=== PATIENT | female | born 1980 | race Caucasian/White ===

== ENCOUNTER 2020-07-17 02:31 | Outpatient (CLI) | payer OTHER, SELFPAY ==
[2020-07-18 13:16] LABS: COVID-19 RT-PCR UVMMC Result Negative (Negative)
== END 2020-07-17 02:32 | disposition home or self-care (01) ==
LOC: LBO 02:31
DX: Z20.822 Contact with and (suspected) exposure to COVID-19 (principal); Z01.818 Encounter for other preprocedural examination
CPT/HCPCS: U0003

== ENCOUNTER 2021-03-18 03:53 | Outpatient (CLI) | payer OTHER, SELFPAY ==
[2021-03-18 13:00] LABS: Hemoglobin A1C 8.7 % (<5.7)
[2021-03-18 13:10] LABS: ALT 19 U/L (14-59); AST 15 U/L (15-37); Albumin 3.9 g/dL (3.4-5.0); Alkaline Phosphatase 76 U/L (46-116); Anion Gap 9.6 mmol/L (3-11); BUN 5 mg/dL (7-18); Bilirubin, Total 0.4 mg/dL (0.2-1.0); CO2 28.4 mmol/L (21.0-32.0); CREATININE 0.8 mg/dL (0.55-1.02); Calcium 8.8 mg/dL (8.5-10.1); Calculated LDL 136 mg/dL (<100); Chloride 105 mmol/L (98-107); Cholesterol 204 mg/dL (<200); Glucose 74 mg/dL (74-106); HDL Cholesterol 59 mg/dL (40-60); Potassium 4.3 mmol/L (3.5-5.1); Sodium 143 mmol/L (136-145); TSH 1.45 uIU/mL (0.36-3.74); Total Protein 6.9 g/dL (6.4-8.2); Triglyceride 49 mg/dL (<150)
[2021-03-18 13:35] LABS: COMMENT (LAB VIEW ONLY) 178.95 mg/dL; Microalb ug/mg Crea 5.8 ug/mg Cr
== END 2021-03-18 03:54 | disposition home or self-care (01) ==
DX: E10.649 Type 1 diabetes mellitus with hypoglycemia without coma (principal)
CPT/HCPCS: 36415; 80053; 80061; 82043; 82570; 83036; 84443

== ENCOUNTER 2021-08-18 12:07 | Outpatient (REF) | payer OTHER, SELFPAY ==
--- NOTE | 2021-08-18 10:15 | PAPFT_PTH ---
PATIENT: Carolyn Portillo LOC: [facility] U#:[id number] AGE/SX: 40/F ROOM: RE08/18/[address]: Tori Monte MD : [id number] BED: DIS: 08/18/2021 SPEC #: [id number] RECD: 08/18/21 12:45 STATUS: GEOFFREY REQ #: [id number] PATRICIA: 08/18/21 10:[address]: Tori Monte DEPT: [facility] Cytology RECD BY: Sonali Santiago ENTERED: 08/18/21 12:45 SP TYPE: PAPFT OTHR DR: Ja Murphy Tissues: 1 - CX/ENDOCX FOR PAP SMEARS Procedures: PAP THIN PREP/UVM Screening HPV DNA PROBE Comments: [id number] (HPV 16 & 18/45)
== END 2021-08-18 12:08 | disposition home or self-care (01) ==
LOC: LBN 12:07
PROVIDERS: PCP Family Medicine; Visit Provider Obstetrics & Gynecology
DX: Z12.4 Encounter for screening for malignant neoplasm of cervix (principal); Z11.51 Encounter for screening for human papillomavirus (HPV)
CPT/HCPCS: 88142; 87624

== ENCOUNTER 2021-10-13 00:28 | Outpatient (CLI) | payer OTHER, SELFPAY ==
--- NOTE | 2021-10-13 12:22 | DI.MAMMO_ITS ---
Exam(s) MAMMO SCREENING EXAM: MAMMO SCREENING CLINICAL HISTORY: screening. TECHNIQUE: Bilateral full field digital CC and MLO mammographic images were obtained with 3D tomosyn thesis and utilizing computer aided detection (CAD). COMPARISON: None. This is a baseline mammogram on this 40-year-old patient FINDINGS: Fibroglandular tissue pattern is moderately dense. There are no CAD designations. There are no new spiculated masses nor malignant appearing microcalcification groups. There is no significant architectural distortion nor skin thickening-retraction. IMPRESSION: No radiographic evidence of malignancy. BI-RADS Category 1 - Negative Breast Density - Category C - Heterogeneously dense Breast density Category C or D implies that the patient has dense breast tissue. Dense breast tissue can make it harder to find cancer on a mammogram. Dense breast tissue is also associated with an incr eased risk of breast cancer. This information about the result of the mammogram report was provided to the patient to raise their awareness. Use this report when you speak with the patient about their risks for breast cancer, which includes their family history. At that time, you may recommend additional screening tests (Ultrasoun d or MRI) as these tests may add significant information. A negative radiographic report should not delay biopsy if a dominant or clinically suspicious mass is present. Up to ten percent of cancers are not identified on mammography. A negative report may reinforce clinical impression. Adenosis and dense breasts may obscure an underlying neoplasm. False positive reports average 6 to 10%. Patient will receive a letter notifying them of these results.
== END 2021-10-13 00:48 ==
PROVIDERS: Visit Provider Obstetrics & Gynecology
DX: Z12.31 Encounter for screening mammogram for malignant neoplasm of breast (principal)
CPT/HCPCS: 77063; 77067

== ENCOUNTER 2022-01-24 18:12 | Emergency (ER) | payer OTHER, SELFPAY ==
--- NOTE | 2022-01-24 18:15 | DI.RAD_ITS ---
Exam(s) XR CHEST 2V PA LATERAL EXAM: XR CHEST 2V PA LATERAL CLINICAL HISTORY: Right Falnk/Rib pain TECHNIQUE: 2D digital imaging was performed of the chest. Two images were obtained. PA and lateral views were obtained. COMPARISON: CR CHEST 2 VIEWS PA,LAT from 03/21/2015 FINDINGS: MEDIASTINUM: Normal. HEART: Normal. PULMONARY VASCULATURE: Normal. LUNGS: Clear. PLEURAL SPACE: No pleural effusion or pneumothorax. BONE:Within normal limits for the patient's age. OTHER FINDINGS:Normal. IMPRESSION: No acute pulmonary findings. DATA REPOSITORY: RADIATION DOSE DELIVERED:
[2022-01-24 18:16] VITALS: PULSE 80; RESP 18; TEMP 36.7; O2SAT 98
--- NOTE | 2022-01-24 18:29 | ED.GENADUL_ITS ---
Discharge Plan Disposition Patient Disposition: HOME Condition: Stable Discharge Details Clinical Impression: Flank pain Primary Care Provider: Carmen Hernandez ED Provider: Carmen Duque Home Meds and New Rx's Prescriptions: Continued atorvastatin 10 mg tablet 5 mg PO DAILY albuterol sulfate [ProAir HFA] 90 mcg/actuation HFA aerosol inhaler 2 puff inhalation Q6H PRN bupropion HCl 150 mg tablet sustained-release 12 hr 150 mg PO BID insulin glargine [Lantus U-100 Insulin] 100 UNITS/ML solution 30 units SQ DAILY insulin aspart U-100 [Novolog U-100 Insulin aspart] 100 UNITS/ML solution 1 - 30 units SQ AC Discharge Instructions Instructions: Flank Pain (ED) Additional Instructions: At this time the work-up is largely unremarkable. CT shows no evidence for gallbladder problem, small bowel obstruction, kidney stone. No evidence of urinary tract infection. Your magnesium was a little bit low. No evidence to suggest what may be causing your pain at this time. Follow up with primary care provider in 3-5 days. Return to ED sooner if any worsening or concerns. Increase oral fluids. Referrals: Carmen Hernandez, S[employer]IOR PUBLICATIONS SPECIALIST [Primary Care Provider] - 5 days Medical Decision Making 41 year old female Presents with Flank Pain Which began Tuesday am, Reports Nausea, diarrhea but No Vomiting. Work-up ordered including CBC, CMP, lipase, urinalysis. Chest x-ray will consider CT abdomen pelvis. CBC shows white blood cell count 11.80, neutrophils 7.03, CMP shows glucose 279, magnesium 1.6, negative leukocytes negative nitrites urinalysis shows greater than thousand glucose CT shows no explanation for patient's pain. There is a small umbilical hernia. Discussed CT and lab results with patient who verbalized understanding. Patient given ibuprofen and lidocaine patch. Instructed to follow-up with PCP she verbalized understanding. She does have an appointment next week. All her questions were answered to the best my ability. This text was generated using [employer] system, please disregard any oddities of phrase or misspellings. Imaging Data Radiologic Study: Imaging: CT Scan Radiologist's impression: CR XR CHEST 2V PA LATERAL 01/24/2022 7:33 PM FINDINGS: Liver: Normal. No mass. Gallbladder and bile ducts: The gallbladder is fairly significantly contracted. Pancreas: Normal. No ductal dilation. Spleen: Normal. No splenomegaly. Adrenal glands: Normal. No mass. Kidneys and ureters: Normal. No hydronephrosis. Stomach and bowel: Unremarkable. No obstruction. No mucosal thickening. Appendix: The appendix is well seen, within normal limits. Intraperitoneal space: Unremarkable. No free air. No significant fluid collection. Vasculature: Mild atherosclerotic change present in the vasculature. Lymph nodes: Unremarkable. No enlarged lymph nodes. Urinary bladder: Unremarkable as visualized. Reproductive: Status post hysterectomy. Bones/joints: Unremarkable. No acute fracture. Soft tissues: There is a small, fat containing periumbilical hernia. Umbilical piercing noted. IMPRESSION: No acute abnormality seen to account for symptoms. Thank you for allowing us to participate in the care of your patient. Dictated and Authenticated by: Kaley Lentz MD Lab Data Lab results reviewed: Yes I reviewed the patient's lab results. Labs: Laboratory Tests Range/Units 01/24/22 01/24/22 01/24/22 19:14 19:20 19:20 WBC (4.4-10.8) 10^3/uL 11.80 H RBC (3.93-5.22) 10^6/uL 4.26 Hgb (11.2-15.7) g/dL 13.1 Hct (36.0-46.0) % 38.2 MCV (80-95) fL 90 MCH (27.0-33.0) pg 30.8 MCHC (32.0-36.0) % 34.3 RDW (11.7-14.6) % 13.7 Plt Count (130-400) 10^3/uL 232 MPV (8.0-11.0) fL 10.1 Immature Gran % 0.3 Neutrophils % 59.6 Lymphocytes % 30.0 Monocytes % 7.5 Eosinophils % 2.3 Basophils % 0.3 Nucleated RBC % (0.0-0.3) % 0.0 Absolute Neutrophils (1.2-6.7) 10^3/uL 7.03 H Absolute Lymphocytes (1.2-3.4) 10^3/uL 3.54 H Absolute Monocytes (0.1-0.8) 10^3/uL 0.89 H Absolute Eosinophils (0.0-0.7) 10^3/uL 0.27 Absolute Basophils (0.0-0.2) 10^3/uL 0.04 Sodium (136-145) mmol/L 138 Potassium (3.5-5.1) mmol/L 3.7 Chloride (98-107) mmol/L 101 Carbon Dioxide (21.0-32.0) mmol/L 27.1 Anion Gap (3-11) mmol/L 9.9 BUN (7-18) mg/dL 11 Creatinine (0.55-1.02) mg/dL 1.0 Estimated GFR/1.73 m2 (mL/min/1.73m2) >= 60.00 Glucose (74-106) mg/dL 279 H Calcium (8.5-10.1) mg/dL 9.1 Magnesium (1.8-2.4) mg/dL 1.6 L Total Bilirubin (0.2-1.0) mg/dL 0.3 AST (15-37) U/L 13 L ALT (14-59) U/L 17 Alkaline Phosphatase (46-116) U/L 78 Total Protein (6.4-8.2) g/dL 7.1 Albumin (3.4-5.0) g/dL 3.7 Lipase (73-393) U/L 82 Urine Color (Yellow) Yellow Urine Clarity (Clear) Clear Urine pH (5-8) 7.0 Ur Specific [place] (1.005-1.025) 1.020 Urine Protein (Negative) mg/dL Negative Urine Ketones (Negative) mg/dL 15 H Urine Blood (Negative) Negative Urine Nitrite (Negative) Negative Urine Bilirubin (Negative) Negative Urine Urobilinogen (Up TO 0.2) EU/dL 1.0 H Ur Leukocyte Esterase (Negative) Negative Urine Glucose (Negative) mg/dL >=1000 H HPI General Mode of arrival: ambulatory . Date/Time Provider Initiated Documentation: 01/24/22 18:23 . Limitations to Documentation: no limitations . Information obtained by: patient, RN notes reviewed and old records reviewed . HPI Narrative: 41 year old female Presents with Flank Pain Which began Neo am, Reports Nausea, diarrhea but No Vomiting. Denies fever, chills, PShx includes hysterectomy. Past medical history includes insulin-dependent diabetes, depression, hyperlipidemia. Denies injury. Patient is a smoker. Denies any dysuria or problems urinating. Denies any diarrhea. No chest pain shortness of breath. No other associated symptoms. Related Data Home Medications Medication Instructions Recorded Confirmed insulin aspart U-100 100 unit/mL 1 - 30 units SQ AC 03/21/15 01/24/22 subcutaneous solution (Novolog U-100 Insulin aspart) insulin glargine 100 unit/mL 30 units SQ DAILY 03/21/15 01/24/22 subcutaneous solution (Lantus U-100 Insulin) atorvastatin 10 mg tablet 5 mg PO DAILY 07/28/21 01/24/22 albuterol sulfate 90 mcg/actuation 2 puff inhalation Q6H PRN 08/07/21 01/24/22 aerosol inhaler (ProAir HFA) bupropion HCl 150 mg tablet,12 hr 150 mg PO BID 08/07/21 08/18/21 sustained-release Allergies Allergy/AdvReac Type Severity Reaction Status Date / Time insulin detemir Allergy Severe Verified 01/24/22 19:07 [From Levemir U-100 Insulin] General Stated Complaint: Abd Prob KAMILA: 3 Review of Systems All systems reviewed & are unremarkable except as noted in HPI and below Gastrointestinal Gastrointestinal: Reports as per HPI, Reports abdominal pain, Reports diarrhea, Reports nausea and Denies vomiting Genitourinary Genitourinary: Reports flank pain PFSH All Active Problems (Updated 01/24/22 @ 20:51 by Carmen Duque NP) Flank pain (Acute) Depression (Chronic) Abnormal Pap smear of cervix (Acute) Per patient high-grade dysplasia more than once with [facility]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 Had skin reaction to patch, welbutrin didn't work, has the nicotrol inhalers to try. Family history of colon cancer (Acute) Brother age 40, per patient as of 07/2021-colonoscopy at [facility] [place] over 5 years ago with benign polyp Hyperlipidemia (Acute) Type 1 diabetes (Acute) With insulin pump, followed by endocrine at [facility], no diabetic associated complications as of 07/2021 Medical History Abscess of groin Chlamydial cervicitis Condyloma acuminatum External hemorrhoids Hematochezia Low back pain Surgical History H/O bilateral salpingectomy H/O section (~2013) H/O LEEP (~2017) repeated in 2019 H/O wisdom tooth extraction History of biopsy shave biopsy, left inner thigh History of hysterectomy Family History Mother Hypertension Hyperlipidemia Father Alcohol use disorder Depression Substance use disorder Brother Colon cancer Sister No problems noted. Son No problems noted. Son No problems noted. Daughter No problems noted. Daughter Asthma Depression Maternal Grandfather Prostate cancer Maternal Grandmother No problems noted. Social History Smoking/Tobacco Use Status: Current every day Tobacco Type: cigarettes Years smoked: 25 Tobacco: How many years used: 25 Quit status: considering quitting Second Hand Exposure: Yes Smoking risk assessment performed?: Yes Alcohol Intake: current Alcohol Intake frequency: 0-2 drinks per day Alcohol type: other Drug use: Never Substance use type: does not use Counseling given: No Details: Drinks 2 twisted teas a night Caregiver/Support person: No Household members: significant other and children Housing: house Do you need help understanding health information?: Rarely Pets and animals: Yes Pets and animals: dog(s) Sexually active: Yes Do you think of yourself as: bisexual Current gender identity: female What is your relationship status?: How often do you talk on the phone with friends or family?: three or more times per week Do you belong to any clubs or organized social groups?: no Panel score (0-1 are the most socially isolated patients): 1 What type of physical activity do you participate in: walking and aerobic Duration: 30-45 minutes/day Frequency: 3-4 times per week Silvia/Samaritan: No preference Special silvia needs: No Seatbelt use: always Helmet use: Yes Helmet use: always Drive intox or ride w/intox route salesman and driver: No Do you feel safe at home: Yes Do you feel safe in your relationship?: Yes Female Reproductive History Menstrual Menopause type: surgical Date of menopause: 07/21/20 (Hyst for persistent DARIAN 3 / LEEPs 2017 & 2019) History History 6 Para 4 Hx # Term Pregnancies Multiple births Hx # Pregnancies Ectopic pregnancies AB induced 1 Hx Number of Living Children 4 AB spontaneous 1 Past Pregnancies Del. Date GA/Weeks # Preg Succ Route Wgt Sex Labor Lgth Anesth esia Location Prov Complic 12/07/99 No vaginal Female 07/10/02 No vaginal 2891.651 g Female 02/08/05 40 No vaginal 2863.302 g Male 09/07/13 37 No 2664.855 g Male Exam Narrative Exam Narrative: Constitutional: Alert and oriented x3. Appears stated age. Normal body habitus. Head: Normocephalic, no trauma. Eyes: Pupils PERRL, Red reflex noted, EOM's intact. Eyelids symmetrical without lesions, discharge, or swelling. ENT: Bilateral TM's WNL, External ear normal to inspection, no mastoid TTP, swelling, or erythema, Nasal turbinates WNL, no nasal discharge. Normal dentition, Posterior pharynx WNL, no exudate. Chest: RRR, Normal S1, S2, distal pulses intact. Resp: Lungs clear to auscultation bilaterally, no wheezes, rales, or rhonchi. Abdomen: Soft, non-distended, Normoactive bowel sounds all 4 quads. Musculoskeletal: Normal gait, 5/5 strength to all four extremities. Skin: No suspicious rashes or lesions. Capillary refill less than 2 sec. Neurologic: Cranial nerves II-XII intact. Alert and oriented x 3. Motor: No deficits noted. Sensory: Intact bilaterally all 4 extremities. Reflexes: DTR's intact bilaterally.. Hematologic/Lymphatic: No ecchymosis, no lymphadenopathy. Course Vital Signs Vital signs: Vital Signs Temperature 36.7 C 01/24/22 18:16 Pulse 80 01/24/22 18:16 Respiratory Rate 18 01/24/22 18:16 Pulse Oximetry 98 01/24/22 18:16 Temperature 36.7 C 01/24/22 18:16 Temperature Source Temporal Artery Scan 01/24/22 18:16 Pulse 80 01/24/22 18:16 Respiratory Rate 18 01/24/22 18:16 Blood Pressure Position Sitting 01/24/22 18:16 Pulse Oximetry 98 01/24/22 18:16 Pain Level 7 01/24/22 18:16
[2022-01-24 19:19] LABS: Bilirubin Negative (Negative); Blood Negative (Negative); Clarity Clear (Clear); Glucose >=1000 mg/dL (Negative); Ketones 15 mg/dL (Negative); Leukocyte Esterase Negative (Negative); Nitrite Negative (Negative)
[2022-01-24 19:32] LABS: Abs Immature Grans 0.03 10^3/uL (0.0-0.06); Absolute Basophil Count 0.04 10^3/uL (0.0-0.2); Absolute Eosinophil Count 0.27 10^3/uL (0.0-0.7); Absolute Lymphocyte Count 3.54 10^3/uL (1.2-3.4); Absolute Monocyte Count 0.89 10^3/uL (0.1-0.8); Absolute Neutrophil Count 7.03 10^3/uL (1.2-6.7); Basophils % 0.3; Eosinophils % 2.3; HCT 38.2 % (36.0-46.0); HGB 13.1 g/dL (11.2-15.7); Immature Grans % 0.3; MCH 30.8 pg (27.0-33.0); MCHC 34.3 % (32.0-36.0); MCV 90 fL (80-95); MPV 10.1 fL (8.0-11.0); Monocytes % 7.5; Neutrophils % 59.6; Platelet Count 232 10^3/uL (130-400); RBC 4.26 10^6/uL (3.93-5.22); RDW 13.7 % (11.7-14.6); RDW-SD 44.7 fL
[2022-01-24 19:44] LABS: ALT 17 U/L (14-59); AST 13 U/L (15-37); Albumin 3.7 g/dL (3.4-5.0); Alkaline Phosphatase 78 U/L (46-116); Anion Gap 9.9 mmol/L (3-11); BUN 11 mg/dL (7-18); Bilirubin, Total 0.3 mg/dL (0.2-1.0); CO2 27.1 mmol/L (21.0-32.0); Calcium 9.1 mg/dL (8.5-10.1); Chloride 101 mmol/L (98-107); Glucose 279 mg/dL (74-106); Lipase 82 U/L (73-393); Magnesium 1.6 mg/dL (1.8-2.4); Potassium 3.7 mmol/L (3.5-5.1); Sodium 138 mmol/L (136-145); Total Protein 7.1 g/dL (6.4-8.2)
--- NOTE | 2022-01-24 20:05 | DI.VRAD_ITS ---
PROCEDURE INFORMATION: Exam: XR Chest Exam date and time: 01/24/2022 7:33 PM Age: 41 years old Clinical indication: Pain; Right-sided; Additional info: Right rib and flank pain TECHNIQUE: Imaging protocol: Radiologic exam of the chest. Views: 2 views. COMPARISON: CR CHEST 2 VIEWS PA,LAT 03/21/2015 11:22 AM FINDINGS: Lungs: Unremarkable. No consolidation. Pleural spaces: Unremarkable. No pleural effusion. No pneumothorax. Heart/Mediastinum: Unremarkable. No cardiomegaly. Bones/joints: Unremarkable. IMPRESSION: No evidence for acute abnormality in the chest. Dictated and Authenticated by: Kaley Lentz MD. Ordering:MAXIM Morales MD
--- NOTE | 2022-01-24 20:15 | DI.CT_ITS ---
Exam(s) CT ABDOMEN PELVIS WO EXAM: CT ABDOMEN PELVIS WO CLINICAL HISTORY: Right flank pain. TECHNIQUE: Imaging Protocol: Axial computed tomography images with coronal and sagittal reformatted images were created and reviewed. COMPARISON: No exams were available for comparison FINDINGS: ABDOMEN: Lung Bases: Atelectasis is seen in the lung bases. Liver: Normal density. No measurable mass. Gallbladder and biliary tract: No radiodense calculus or biliary ductal dilation. Pancreas: Normal density, no abnormal calcifications or inflammatory process. Spleen: Normal. Kidneys: Normal size, contour and axis.No radiodense stones or obstructive uropathy. No masses seen. Adrenal glands: No mass is seen. Lymph nodes: Within normal limits. Abdominal Aorta: Abdominal portion non-dilated. Mild atherosclerosis is present. PELVIS: Bladder:Symmetric distention, no gross wall thickening. Bowel: No obstruction or bowel wall thickening. Appendix is unremarkable. Peritoneal cavity: No ascites, collection or mesenteric inflammatory response. No free air. Reproductive organs: The uterus is not well visualized. The patient may be status post hysterectomy. Please correlate clinically. Bones: Within normal limits. Soft Tissues: There is a small fat containing umbilical hernia. There is an umbilical piercing noted . IMPRESSION: 1. No acute abdominal or pelvic process. 2. No evidence of nephrolithiasis or hydronephrosis. RADIATION DOSE DELIVERED: 512.74mGy.cm Total DLP DATA REPOSITORY: All CT scans at this facility are submitted to the National Radiology Data Registry (NRDR) Dose Index Registry (DIR) with the [employer] (ACR). RADIATION OPTIMIZATION: All CT scans at this facility use at least one of these dose optimization te chniques: automated exposure control; mA and/or kV adjustment per patient size (includes targeted exa ms where dose is matched to clinical indication); or iterative reconstruction.
--- NOTE | 2022-01-24 20:46 | DI.VRAD_ITS ---
PROCEDURE INFORMATION: Exam: CT Abdomen And Pelvis Without Contrast Exam date and time: 01/24/2022 8:29 PM Age: 41 years old Clinical indication: Abdominal pain; Flank; Right; Prior surgery; Surgery date: 6+ months; Surgery type: Sensor, hysterectomy; Additional info: Right rib and flank pain TECHNIQUE: Imaging protocol: Computed tomography of the abdomen and pelvis without contrast. Radiation optimization: All CT scans at this facility use at least one of these dose optimization techniques: automated exposure control; mA and/or kV adjustment per patient size (includes targeted exams where dose is matched to clinical indication); or iterative reconstruction. COMPARISON: CR XR CHEST 2V PA LATERAL 01/24/2022 7:33 PM FINDINGS: Liver: Normal. No mass. Gallbladder and bile ducts: The gallbladder is fairly significantly contracted. Pancreas: Normal. No ductal dilation. Spleen: Normal. No splenomegaly. Adrenal glands: Normal. No mass. Kidneys and ureters: Normal. No hydronephrosis. Stomach and bowel: Unremarkable. No obstruction. No mucosal thickening. Appendix: The appendix is well seen, within normal limits. Intraperitoneal space: Unremarkable. No free air. No significant fluid collection. Vasculature: Mild atherosclerotic change present in the vasculature. Lymph nodes: Unremarkable. No enlarged lymph nodes. Urinary bladder: Unremarkable as visualized. Reproductive: Status post hysterectomy. Bones/joints: Unremarkable. No acute fracture. Soft tissues: There is a small, fat containing periumbilical hernia. Umbilical piercing noted. IMPRESSION: No acute abnormality seen to account for symptoms. Dictated and Authenticated by: Kaley Lentz MD. Ordering:MAXIM Morales MD
[2022-01-24] MEDS: Magnesium Oxide 400 MG TAB PO (21:05)
[2022-01-24] MEDS: Lidocaine 5% Patch 1 PATCH TP (21:05)
[2022-01-24] MEDS: Ibuprofen 600 MG TAB PO (21:06)
[2022-01-24 21:15] VITALS: BP 103/78; PULSE 77; RESP 17; TEMP 36.8; O2SAT 98
== END 2022-01-24 21:15 | disposition home or self-care (01) ==
PROVIDERS: Emergency Provider Registered Nurse Emergency
DX: R10.9 Unspecified abdominal pain (principal); R11.0 Nausea; R19.7 Diarrhea, unspecified; E10.9 Type 1 diabetes mellitus without complications; F17.210 Nicotine dependence, cigarettes, uncomplicated; Z90.710 Acquired absence of both cervix and uterus; K42.9 Umbilical hernia without obstruction or gangrene; R07.81 Pleurodynia
CPT/HCPCS: 36415; 80053; 83690; 99284; 71046; 74176; 81003; 83735; 85025

== ENCOUNTER 2022-02-16 06:05 | Day surgery (SDC) | payer OTHER, SELFPAY ==
--- NOTE | 2022-02-15 21:48 | W.COLOREPORT ---
Colonoscopy Report Date of procedure: 02/16/22 Pre-op diagnosis general: family hx of CRC/Hx of polypc Post-op diagnosis procedure note: other (Grade 1 internal and external hemorrhoids. 5 mm polyp in the rectum.) Surgeon: Aury Lopez Anesthesia Type: General:No Airway Pathology: other Complications: None Disposition: same day Prep: Miralax/Dulcolax Findings: 9 Procedure Description: After informed consent was obtained the patient was taken to the procedure room and placed in a left decubitous position. Monitors were applied and a time out was done. The patients name, date of , procedure, allergies to medications and metal in their body was reviewed. The patient was then sedated. Once sedated and comfortable a rectal exam was done. External exam shows small external hemorrhoids with no acute inflammation. Internal exam revealed a normal sphincter tone and no palpable masses. The scope was then introduced and retrofelexed. . Grade 1 3 column internal hemorrhoids were identified. The scope was then advanced to the cecum without difficulty. The TI and appendiceal orifice were identified. The prep was BB PS 2 in all segments for a total of 6. The scope was then slowly retracted over 9 minutes back into the rectum. She had a flat 5 mm polyp in the rectum this is removed with a cold biopsy forceps. There are no diverticula or AVMs visualized today. Mucosa is pink and healthy with a normal vascular pattern. all specimen is retrieved and no bleeding is noted. The scope was removed and the patient was woken up and taken back to Same day surgery in stable condition. The patient tolerated the procedure well and there were no immediate complications. Follow up: The patient should follow up in 5 years unless they develop changes in bowel habits or other new gastrointestinal complaints.
--- NOTE | 2022-02-15 21:49 | PDOC.DSDIS_ITS ---
Discharge Plan Disposition Patient Disposition: HOME Condition: Good Discharge Details Reason For Visit: colon cancer screening Attending Provider: Aury Lopez Primary Care Provider: Carmen Hernandez Home Meds and New Rx's Prescriptions: Continued atorvastatin 20 mg tablet 20 mg PO DAILY Qty: 90 3RF albuterol sulfate [ProAir HFA] 90 mcg/actuation HFA aerosol inhaler 2 puff inhalation Q6H PRN insulin glargine [Lantus U-100 Insulin] 100 UNITS/ML solution 30 units SQ DAILY insulin aspart U-100 [Novolog U-100 Insulin aspart] 100 UNITS/ML solution 1 - 30 units SQ AC Discontinued bisacodyl [Dulcolax (bisacodyl)] 5 mg tablet,delayed release (DR/EC) 5 mg PO ONCE Qty: 4 0RF Rx Instructions: Take according to provider's instructions for colonoscopy prep. polyethylene glycol 3350 17 gram/dose powder 17 g PO ONCE Qty: 238 0RF Rx Instructions: To be taken as directed by prescriber's office for colonoscopy prep. Discharge Instructions Additional Instructions: DSU Colonoscopy Post- Op Instructions Instructions for Everyone who is given Anesthesia: For your safety, please do the following for the next twenty-four (24) hours: *Do Not operate a motor vehicle (car, truck, motorcycle, etc.) *Do Not drink alcoholic beverages or use any recreational drugs for the first 24 hours or while taking pain medications. The medications in your body may have a reaction that can be dangerous. *Do Not make any important decisions or sign any important papers. Findings: polyp x1 Follow up: My office will send you a letter in 2 to 3 weeks time with the results of the pathology and when we want you to repeat your colonoscopy, most likely 5 years time. No aspirin or NSAIDs for 72 hours 1. No lifting over 20 pounds or strenuous activity for the first 24 hours after your procedure. After 24 hours there are no restrictions on your activity but you may feel fatigued for a few days. 2. After you arrive home you may have a light meal and return to your normal diet as you can tolerate it without feeling sick to your stomach. 3. You may have a bloated, gaseous feeling in your belly (abdomen) after a colonoscopy. Passing gas and belching will help. Walking or lying down on your left side with your knees flexed may relieve the discomfort. Call the office at [phone] (Office) or [phone] (Hospital) right away if you notice any of the following: a.Vomiting of blood or ?coffee ground stools?. b.Rectal bleeding 1Tbsp, blood clots or continuous bleeding. c.Severe belly (abdominal) pain. d.A hard distended belly (abdomen) and an inability to pass gas. 4. Please don?t expect to have a normal BM (bowel movement) for 2-3 days after your procedure. 5. If there are questions regarding the findings of your procedure, please contact your doctor 6. If you are unable to contact your doctor with a problem, contact the hospital at [phone]. 7. Continue all your regular medications unless directed otherwise. I understand the above instructions and have no questions. Signature of Patient or Adult Escort Name of Responsible Adult Escort Signature of Nurse Date/Time Activity:: see above Diet:: see above Discharge Orders Discharge Orders: Discharge Order (Routine); Ordered 02/15/22 Ordered By: Aury Lopez DS: Diagnosis Discharge Diagnosis (1) Adenomatous colon polyp: Status: Acute (2) Family history of colon cancer: Status: Acute (3) Type 1 diabetes: Status: Acute (4) Hyperlipidemia: Status: Acute (5) Personal history of nicotine dependence: Status: Acute
[2022-02-16 06:15] VITALS: BP 99/81; PULSE 90; RESP 18; TEMP 36.4; O2SAT 99
[2022-02-16] MEDS: Lactated Ringers 1,000 ML 80 ML IV (06:45)
--- NOTE | 2022-02-16 06:46 | ANES.PREOP_ITS ---
General Info Date of Service Date Performed: 02/16/22 Height: 5 ft 1 in Weight: 56.1 kg Body Mass Index (BMI): 23.3 Surgical Procedure: Operation Date: 02/16/22 07:35 Proposed Procedure Side Surgeon sherlyn Lopez, Meds Allergies and Home Medications Allergies Allergy/AdvReac Type Severity Reaction Status Date / Time insulin detemir Allergy Severe Verified 02/16/22 06:29 [From Levemir U-100 Insulin] Home Medication Medication Instructions Recorded insulin aspart U-100 100 unit/mL 1 - 30 units SQ AC 03/21/15 subcutaneous solution (Novolog U-100 Insulin aspart) insulin glargine 100 unit/mL 30 units SQ DAILY 03/21/15 subcutaneous solution (Lantus U-100 Insulin) albuterol sulfate 90 mcg/actuation 2 puff inhalation Q6H PRN 08/07/21 aerosol inhaler (ProAir HFA) atorvastatin 20 mg tablet 20 mg PO DAILY #90 tabs 02/04/22 Current Visit Medications: Current Medications Generic Name Dose Route Start Last Admin Trade Name Freq PRN Reason Stop Dose Admin Hyoscyamine Sulfate 0.125 mg 02/15/22 21:47 Hyoscyamine 0.125 Mg Sl/Oral/Chew SL DIRECTED PRN Ringer's Solution 1,000 mls @ 80 mls/hr 02/16/22 06:00 IV 03/17/22 23:59 [facility] IV Miscellaneous Supplies 1 each 02/16/22 06:00 Iv Access IV 03/17/22 23:59 DIRECTED BELLA Ondansetron HCl 4 mg 02/15/22 21:47 Ondansetron 4 Mg/2 Ml Vial IVP Q4H PRN PRN Nausea / Vomiting Sodium Chloride 0 ml 02/16/22 06:00 Normal Saline Flush 10 Ml Syr IV 03/17/22 23:59 PRN PRN Sodium Chloride 0 ml 02/16/22 06:00 Normal Saline 10 Ml Vial IJ 03/17/22 23:59 DIRECTED PRN Sterile Water 0 ml 02/16/22 06:00 Water,Injection,Sterile 10 Ml Vial IJ 03/17/22 23:59 DIRECTED PRN PFSH Active Problems Active Problems: Problem Status Onset Code Type 1 diabetes E10.9 Hyperlipidemia E78.5 Family history of colon cancer Z80.0 Personal history of nicotine dependence Z87.891 Abnormal Pap smear of cervix R87.619 Depression F32.A Flank pain R10.9 Medical History Medical History Abscess of groin Chlamydial cervicitis Condyloma acuminatum External hemorrhoids Hematochezia Low back pain Medical History Comments:: CGM in situ on abdomen (L) pump on (R) arm Surgical History Surgical History (Updated 02/16/22 @ 06:28 by Jazmyn Lao) H/O bilateral salpingectomy H/O section (~2013) H/O LEEP (~2017) repeated in 2019 H/O wisdom tooth extraction History of biopsy shave biopsy, left inner thigh History of colonoscopy History of hysterectomy Tobacco Smoking/Tobacco Use Status: Current every day Tobacco Type: cigarettes Years smoked: 25 Passive smoking exposure: Yes Second hand exposure: Yes Alcohol Alcohol Intake: current Alcohol intake frequency: 0-2 drinks per day Alcohol type: other Substance Use Substance use: Never Substance use type: does not use Details: Drinks 2 twisted teas a night Prental History History 6 Para 4 Hx # Term Pregnancies Multiple births Hx # Pregnancies Ectopic pregnancies AB induced 1 Hx Number of Living Children 4 AB spontaneous 1 Past Pregnancies Del. Date GA/Weeks # Preg Succ Route Wgt Sex Labor Lgth Anesth esia Location [facility] 12/07/99 No vaginal Female 07/10/02 No vaginal 2891.651 g Female 02/08/05 40 No vaginal 2863.302 g Male 09/07/13 37 No 2664.855 g Male Vital Signs and Lab Results Vital Signs Most Recent Vital Signs in EMR: Most Recent Vital Signs Temp Pulse Resp BP Pulse Ox 36.4 C L 90 18 99/81 L 99 02/16/22 06:15 02/16/22 06:15 02/16/22 06:15 02/16/22 06:15 02/16/22 06:15 Lab Results Blood Type / Crossmatch: No Data to Display Complete Blood Count: White Blood Count 11.80 10^3/uL (4.4-10.8) H 01/24/22 19:20 Red Blood Count 4.26 10^6/uL (3.93-5.22) 01/24/22 19:20 Hemoglobin 13.1 g/dL (11.2-15.7) 01/24/22 19:20 Hematocrit 38.2 % (36.0-46.0) 01/24/22 19:20 Platelet Count 232 10^3/uL (130-400) 01/24/22 19:20 Complete Metabolic Panel: Sodium Level 138 mmol/L (136-145) 01/24/22 19:20 Potassium Level 3.7 mmol/L (3.5-5.1) 01/24/22 19:20 Chloride Level 101 mmol/L (98-107) 01/24/22 19:20 Carbon Dioxide Level 27.1 mmol/L (21.0-32.0) 01/24/22 19:20 Blood Urea Nitrogen 11 mg/dL (7-18) 01/24/22 19:20 Creatinine 1.0 mg/dL (0.55-1.02) 01/24/22 19:20 Estimated GFR/1.73 m2 >= 60.00 (mL/min/1.73m2) 01/24/22 19:20 Magnesium Level 1.6 mg/dL (1.8-2.4) L 01/24/22 19:20 Calcium Level 9.1 mg/dL (8.5-10.1) 01/24/22 19:20 Albumin 3.7 g/dL (3.4-5.0) 01/24/22 19:20 Glucose Level 279 mg/dL (74-106) H 01/24/22 19:20 Hemoglobin A1c 8.5 % (4.5-5.7) H 02/03/22 06:52 Liver Function Panel: Alanine Aminotransferase (ALT/SGPT) 17 U/L (14-59) 01/24/22 19: 20 Aspartate Amino Transf (AST/SGOT) 13 U/L (15-37) L 01/24/22 19: 20 Coagulation Panel: No Data to Display Cardiac Panel: No Data to Display Arterial Blood Gas: No Data to Display Venous Blood Gas: No Data to Display Pancreas Panel: Lipase 82 U/L (73-393) 01/24/22 19:20 Thyroid Panel: No Data to Display Infectious Disease: No Data to Display Blood Cultures: No Data to Display Toxicology Panel: No Data to Display Panel: No Data to Display Anesthesia Assessment and Plan Anesthesia History Personal History: No History of Anesthesia Complications Family History: No Family History of Anesthesia Complications Exercise Tolerance Exercise Tolerance: Metabolic Equivalents>4 Pertinent Negatives Pertinent Negatives: No Symptoms of GERD, No Major Cardiovascular Symptoms or Complaints, No Major Pulmonary Symptoms or Complaints and No History of CVA/TIA Cardiac & Pulmonary Exam Cardiac Exam: Normal S1/S2 Heart Sounds Pulmonary Exam: Clear Bilateral Breath Sounds Implantable Cardiac Device Does patient have a Pacemaker or an ICD?: No Airway Exam Known Difficult Airway: No Mallampati Class: 2 Mouth Opening: Normal (> 3cm) Thyromental Distance: Greater than 3 cm Neck Range of Motion: Full ROM Neck Circumference: Normal Teeth Condition: Normal Dentition and Removable Dentures/Plates Upper ASA Classification ASA Score: ASA 2 Emergency Case?: No NPO Status NPO Status: NPO Clears >2 hours, Solids >8 hours Status Status: History of Hysterectomy Anesthesia Plan Resuscitation Status: Full Code Anesthesia Technique: General Anesthesia Airway Planned: Natural Airway Monitors Used: Standard Monitors
[2022-02-16 07:27] VITALS: BMI 23.3
--- NOTE | 2022-02-16 07:55 | BOWEL_PTH ---
PATIENT: Carolyn Portillo LOC: [facility] U#:[id number] AGE/SX: 41/F ROOM: RE02/16/[address]: Aury Lopez : 1980 BED: DIS: 02/16/2022 SPEC #: [id number] RECD: 02/16/22 12:37 STATUS: GEOFFREY REQ #: [id number] PATRICIA: 02/16/22 07:[address]: Aury Lopez DEPT: Surgical Specimen RECD BY: Sonali Santiago ENTERED: 02/16/22 12:38 SP TYPE: Bowel OTHR DR: Carmen Hernandez APRN Tissues: 1 - BIOPSY BOWEL Procedures: GROSS AND MICRO LEVEL 4 Comments: [id number]
[2022-02-16 08:05] VITALS: BP 93/66; PULSE 79; RESP 16; TEMP 36.4; O2SAT 98
[2022-02-16 08:30] VITALS: BP 99/74; PULSE 72; RESP 18; TEMP 36.4; O2SAT 98
--- NOTE | 2022-02-16 09:43 | W.ANESPOSTOP ---
Postoperative Evaluation Date, Time and Location Date Performed: 02/16/22 Time Performed: 09:02 Patient Location: Day Surgery Unit Vital Signs Most Recent Imported Vital Signs: Most Recent Vital Signs Temp Pulse Resp BP Pulse Ox 36.4 C L 72 18 99/74 L 98 02/16/22 08:30 02/16/22 08:30 02/16/22 08:30 02/16/22 08:30 02/16/22 08:30 Pain Score Most Recent Pain Score: Most Recent Pain Score Pain Level 0 02/16/22 08:30 Assessment Mental Status: Awake (Alert & Oriented to Patient Baseline) Airway and Respiratory Function: Patent airway with normal (patient baseline) respiratory exam Cardiovascular Function: Hemodynamically Stable Hydration Status: Adequately Hydrated Nausea & Vomiting: No Nausea or Vomiting Pain: Pt. Denies Any Pain Peripheral Nerve Block: Patient did not receive a nerve block Postoperative Comments:: patient denied questions.
== END 2022-02-16 09:25 | disposition home or self-care (01) ==
PROVIDERS: Visit Provider Surgery
PROC: 0DJD8ZZ Inspection of Lower Intestinal Tract, Via Natural or Artificial Opening Endoscopic (ICD-10-PCS; CPT 45378; principal; 2022-02-16 07:30)
DX: Z12.11 Encounter for screening for malignant neoplasm of colon (principal); K62.1 Rectal polyp; K64.0 First degree hemorrhoids; K64.4 Residual hemorrhoidal skin tags; Z80.0 Family history of malignant neoplasm of digestive organs; E10.9 Type 1 diabetes mellitus without complications; Z86.010 Personal history of colon polyps
CPT/HCPCS: 45380; 88305

== ENCOUNTER 2022-04-01 12:44 | Outpatient (REF) | payer OTHER, SELFPAY | END 2022-04-01 12:45 | disposition home or self-care (01) | LOC: LBN 12:44 | PROVIDERS: Visit Provider Physician Assistant | DX: J02.9 Acute pharyngitis, unspecified (principal) | CPT/HCPCS: 87070 ==

== ENCOUNTER 2022-08-06 01:11 | Outpatient (CLI) | payer OTHER, SELFPAY ==
--- NOTE | 2022-08-06 07:45 | DI.RAD_ITS ---
Exam(s) XR SHOULDER LT COMPLETE 2+V EXAM: XR SHOULDER LT COMPLETE 2+V CLINICAL HISTORY: 2-3 months of LT SHOULDER PAIN, NOT IMPROVING,M25.512. TECHNIQUE: 2D digital imaging was performed. COMPARISON: No exams were available for comparison FINDINGS: Five views: No evidence fracture or dislocation no abnormal soft tissue calcifications. No degenerative changes in the glenohumeral and AC joints. Benign bone islands noted in the humeral head. No os acromiale. Joint space narrowing. IMPRESSION: Two small benign bone islands in the humeral head. No other osseous findings. No degenerative rondon es. DATA REPOSITORY: RADIATION DOSE DELIVERED:
== END 2022-08-06 01:31 ==
LOC: DI 01:11
PROVIDERS: PCP Nurse Practitioner Family; Visit Provider Nurse Practitioner Family
DX: M25.512 Pain in left shoulder (principal); M85.812 Other specified disorders of bone density and structure, left shoulder
CPT/HCPCS: 73030

== ENCOUNTER 2022-10-13 02:13 | Outpatient (CLI) | payer OTHER, SELFPAY ==
[2022-10-13 08:45] LABS: ALT 23 U/L (14-59); AST 13 U/L (15-37); Albumin 3.9 g/dL (3.4-5.0); Alkaline Phosphatase 82 U/L (46-116); Anion Gap 8.2 mmol/L (3-11); BUN 7 mg/dL (7-18); Bilirubin, Total 0.3 mg/dL (0.2-1.0); CO2 28.8 mmol/L (21.0-32.0); CREATININE 0.9 mg/dL (0.55-1.02); Calcium 8.9 mg/dL (8.5-10.1); Calculated LDL 158 mg/dL (<100); Chloride 102 mmol/L (98-107); Cholesterol 237 mg/dL (<200); Estimated GFR 82.37 (mL/min/1.73m2); Glucose 221 mg/dL (74-106); HDL Cholesterol 64 mg/dL (40-60); Potassium 4.2 mmol/L (3.5-5.1); Sodium 139 mmol/L (136-145); Total Protein 7.6 g/dL (6.4-8.2); Triglyceride 75 mg/dL (<150)
[2022-10-13 09:09] LABS: Hemoglobin A1C 9.2 % (<5.7)
[2022-10-14 09:41] LABS: Hepatitis C Ab w Rflx HCV PCR Negative (Negative)
[2022-10-14 10:01] LABS: HIV-1/2 Ag & Ab Screen Negative (Negative)
== END 2022-10-13 02:14 | disposition home or self-care (01) ==
PROVIDERS: PCP Nurse Practitioner Family; Visit Provider Nurse Practitioner Family
DX: E78.5 Hyperlipidemia, unspecified (principal); E10.9 Type 1 diabetes mellitus without complications; Z11.4 Encounter for screening for human immunodeficiency virus [HIV]; Z11.59 Encounter for screening for other viral diseases
CPT/HCPCS: 36415; 80053; 80061; 86803; 87389; 83036

== ENCOUNTER 2022-10-14 01:19 | Outpatient (CLI) | payer OTHER, SELFPAY ==
--- NOTE | 2022-10-14 06:30 | DI.MAMMO_ITS ---
Exam(s) MAMMO SCREENING EXAM: MAMMO SCREENING CLINICAL HISTORY: screening,z12.39. TECHNIQUE: Bilateral full field digital CC and MLO mammographic images were obtained with 3D tomosyn thesis and utilizing computer aided detection (CAD). COMPARISON: Prior baseline mammogram October 1021 was reviewed. FINDINGS: Fibroglandular tissue is again noted be moderately dense. There are no CAD designations. No new left breast findings. In the right breast posteriorly there is a asymmetric density measuring approximately 9 x 8 mm locate d 5 cm in from the nipple on the CC view approximately 4 cm in from the nipple on the MLO view. Spot compression ultrasound recommended. There are no malignant-appearing microcalcification groups in this region or elsewhere in either [address] There is no significant architectural distortion nor skin thickening-retraction. IMPRESSION: 1. No radiographic evidence of malignancy in left breast. 2. Asymmetric density-possible nodule in the right breast as described above. Spot compression views and breast ultrasound recommended. BI-RADS Category 0 - Assessment Incomplete: Need additional imaging evaluation Breast Density - Category C - Heterogeneously dense Breast density Category C or D implies that the patient has dense breast tissue. Dense breast tissue can make it harder to find cancer on a mammogram. Dense breast tissue is also associated with an incr eased risk of breast cancer. This information about the result of the mammogram report was provided to the patient to raise their awareness. Use this report when you speak with the patient about their risks for breast cancer, which includes their family history. At that time, you may recommend additional screening tests (Ultrasoun d or MRI) as these tests may add significant information. A negative radiographic report should not delay biopsy if a dominant or clinically suspicious mass is present. Up to ten percent of cancers are not identified on mammography. A negative report may reinforce clinical impression. Adenosis and dense breasts may obscure an underlying neoplasm. False positive reports average 6 to 10%. Patient will receive a letter notifying them of these results.
== END 2022-10-14 01:39 ==
LOC: DI 01:20
PROVIDERS: PCP Nurse Practitioner Family; Visit Provider Nurse Practitioner Family
DX: Z12.31 Encounter for screening mammogram for malignant neoplasm of breast (principal)
CPT/HCPCS: 77063; 77067

== ENCOUNTER 2022-10-22 00:47 | Outpatient (CLI) | payer OTHER, SELFPAY ==
--- OUTSIDE RECORDS SUMMARY | 2022-10-22 01:03 | XMS_ITS | Continuity of Care Document ---
Author Name [facility] Address [address] [place] [address] Organization [facility] Address [address] [place] [address] Care Team Providers Care Cyber Legal Advisor Name Role Phone Huseyin Zazueta Primary Care Physician [phone] Huseyin Zazueta Attending Physician [phone] Allergies, Adverse Reactions, Alerts Allergen Type Severity Reaction Last Updated Verified Status insulin detemir Allergy hives March 22, 2018 Y Active Medications Active Medications Medication Dose Units Route Sig Start Date Status Insulin Aspart U-100 [Novolog Flexpen] 5 UNITS SUBCUTANEOUS TID WITH MEALS February Active Discontinued Medications Medication Dose Units Route Sig Start Date Discontinu ed Date Status Insulin Glargine [Lantus Solostar] 1 UNITS SUBCUTANEOUS ONCE August 18, 2016 August 18, 2016 Discontinued Problem List No problem information available. Procedures Procedure Date Status Provider(s) LEEP procedure March 15, 2018 completed Steven Mejia MD, MD OF [facility]ERV[facility] W/SCOPE LEEP March 22, 2018 active Urine Culture June 22, 2017 completed Relevant Diagnostic Tests and/or Laboratory Data Laboratory Results Test Date/Time Result Interp. Ref. Range Result Co mment Urine Creatinine May 24, 2018 2:40pm 52.6 mg/dL No Reference Ran ge established. Urine Random Microalbumin May 24, 2018 2:40pm < 0.6 Urine Microalbumin/Creatin ine Ratio May 24, 2018 2:40pm TNP Test not perform ed Ratio not calculated, UMALB <0.6. Creatinine May 24, 2018 2:40pm 0.63 mg/dL 0.52-1.04 Glomerular Filtration Rate Calc May 24, 2018 2:40pm > 60 mL/min 60.0- Cholesterol Level May 24, 2018 2:40pm 200 mg/dL High 59-199 HDL Cholesterol May 24, 2018 2:40pm 59 mg/dL 40-60 The National Cholesterol Education Program (NCEP) has set the following guidelines (reference values) for cholesterol, HDL: Low HDL: <40 mg/dL Normal: 40-60 mg/dL Desirable: >60 mg/dL LDL Cholesterol May 24, 2018 2:40pm 120.6 mg/dL 0-129 VLDL Cholesterol May 24, 2018 2:40pm 20.4 mg/dL 0-32 Cholesterol/HDL Ratio May 24, 2018 2:40pm 3.38 0-3.9 Triglycerides Level May 24, 2018 2:40pm 102 mg/dL 0-149 Hemoglobin A1c Percent May 24, 2018 2:40pm 7.41 % <5.7%: Normal 5.7%-6.4%: Prediabetes >=6.5%: Diagnostic for diabetes Goals for Glycemic Control in Diabetes (ADA 2018) <7.0%: A1c target for non adults with diabetes. More or less stringent glycemic goals may be appropriate for individual patients. <7.5%: A1c target for children and adolescents with type I diabetes. A lower goal is reasonable if it can be achieved without excessive hypoglycemia. Estimated Average Glucose mg/dL May 24, 2018 2:40pm 166 mg/dL Microbiology Results Procedure Source Result Collection Date/Time Resu lt Date/Time Urine Culture Ur,Clean Catch No results entered 2017 4:09pm Advance Directives Advance Directive Response Recorded Date/ Time Do we [place] [facility] [place] October 11, 2016 10:50am Does patient have an Advanced Directive? No March 13, 2010 12:10am Pt has a Living Will? No March 13, 2010 12:10am Pt has a Power of Rn Acute? No Maro 2009 12:10am Hospital Discharge Instructions No known hospital discharge instructions. Hospital Discharge Medications Medication Dose Units Route Sig Qty Days Order Date Status Ins tructions Insulin Glargine 1 UNITS SUBCUTANEOUS ONCE August 042016 Discontinued Insulin Aspart U-100 5 UNITS SUBCUTANEOUS TID WITH MEALS February 15, 2017 Active Encounters Encounter Facility Location Admit/Visit Date Discharge/Departure Date Attending Provider Departed Referred [facility] May 24, 2018 6:52pm May 24, 2018 6:53pm CarlitaBeckay Departed Surgical Day Care [facility] March 22, 2018 7:29am March 22, 2018 8:41am Steven Mejia Departed Surgical Day [facility] March 15, 2018 7:36am March 15, 2018 8:37am Steven Mejia Departed Referred [facility] Pathology February 15, 2018 7:34am February 15, 2018 7:35am Steven Mejia Departed Referred [facility] January 12, 2018 9:21pm January 12, 2018 9:22pm Carlita Huseyin Departed Referred [facility] June 22, 2017 7:24pm June 22, 2017 7:25pm Carlita Huseyin Departed Referred [facility] Pathology June 15, 2017 7:46am June 15, 2017 7:47am Huseyin Zazueta Functional Status No known functional status. Immunizations No known immunizations. Payers Payer Name Policy Type Covered Republican Covered Republican Id Relationship Subscriber Subscriber Id [employer] Commercial MIRTA SOSA [id number] Self/Same as Patient MIRTA [employer]OS[employer] [id number] [employer] Karisma Kidz MIRTA SOSA [id number] Self/Same as Patient [employer]TA [employer] [id number] [facility] [employer] (DO NOT USE) Commercial MIRTA SOSA [id number] Self/Same as Patient MIRTA [employer]OSA [id number] [employer] Karisma Kidz MIRTA SOSA [id number] Self/Same as Patient MIRTA [place] [id number] [place] Medicaid SELF PAY Personal Plan of Care No Known Plan of Care Information Social History Query Response Start Date Stop Date Smoking Status Current every day smoker Vital Signs Vital Reading Result Reference Range Collection Date/Time Height n/a Weight n/a Temperature 97.7 F 97.6 F-99.6 F March 22 18 8:07am Pulse 61 BPM 60-100 March 22 8 8:39am Respiration 18 RPM -March 22 8 8:39am Pulse Oximetry 99 % 95-100 March 22 018 8:39am Blood Pressure Systolic 115 100-140 Octo matthias 2017 8:39am Blood Pressure Diastolic 75 50-85 Oct shelby 2017 8:39am Body Mass Index n/a
--- OUTSIDE RECORDS SUMMARY | 2022-10-22 01:03 | XMS_ITS | Continuity of Care Document ---
Author Name [facility] Address [address] [place] [address] Organization [facility] Address [address] [place] [address] Care Team Providers Care Cardiology Physician Name Role Phone Huseyin Zazueta Primary Care Physician Candace Corley Attending Physician [phone] Allergies, Adverse Reactions, Alerts Allergen Type Severity Reaction Last Updated Verified Status insulin detemir Allergy hives June 12, 2019 Y Active Medications Active Medications Medication Dose Units Route Sig Start Date Status Levonorgestrel [Mirena] 1 INHALER INTRAUTERI ONCE April 10, 2019 Active Insulin Aspart U-100 [Novolog Flexpen] 5 UNITS SUBCUTANEOUS TID WITH MEALS February 15, 2017 Active Discontinued Medications Medication Dose Units Route Sig Start Date Discontinu ed Date Status Insulin Glargine [Lantus Solostar] 1 UNITS SUBCUTANEOUS ONCE August 18, 2016 August 18, 2016 Discontinued Problem List Active Problems Medical Problem Onset Date Status HGSIL (high grade squamous i ntraepithelial lesion) on Pap smear of cervix February 15, 2018 Procedures No known history of procedures. Relevant Diagnostic Tests and/or Laboratory Data Laboratory Results Test Date/Time Result Interp. Ref. Range Result Co mment Thyroid Stimulating Hormone (TSH) June 27, 2019 2:28pm 1.01 mlU/L 0.47-4.68 The results of this assay can be falsely decreased in patients who consume Biotin. Hospital Discharge Instructions No known hospital discharge instructions. Hospital Discharge Medications Medication Dose Units Route Sig Qty Days Order Date Status Instructions Levonorgestrel 1 INHALER INTRAUTERI ONCE April 10, 2019 Active Insulin Glargine 1 UNITS SUBCUTANEO US ONCE August 18, 2016 Discontinu ed Insulin Aspart U-100 5 UNITS SUBCUTANEO US TID WITH MEALS February 15, 2017 Active Encounters Encounter Facility Location Admit/Visit Date Discharge/Departure Date Attending Provider Departed Referred [facility] Pathology July 26, 2019 12:08am July 26, 2019 12:09am Candace Corley Registered Inpatient [facility] July 11, 2019 1:37pm Laura Swift Departed Referred [facility] June 27, 2019 7:00pm June 27, 2019 7:01pm Huseyin Zazueta Departed Physician/Pr ovider Office Visit [facility] June 12, 2019 3:28pm June 12, 2019 4:01pm Steven Mejia Departed Referred [facility] Pathology June 12, 2019 12:19am June 12, 2019 12:20am Steven Mejia Departed Physician/Pr ovider Office Visit [facility] April 10, 2019 8:05am April 10, 2019 8:32am Steven Mejia Departed Physician/Pr ovider Office Visit [facility] April 10, 2019 12:00am April 10, 2019 Medent, Conversion Functional Status No known functional status. Immunizations No known immunizations. Payers Payer Name Policy Type Covered Republican Covered Republican Id Relationship Subscriber Subscriber Id [employer] Commercial MIRTA SOSA [id number] Self/Same as Patient [employer]IRTA [employer] [id number] [employer] Commercial MIRTA SOSA [id number] Self/Same as Patient MIRTA SOSA [id number] [facility] [employer] (DO NOT USE) Commercial MIRTA SOSA [id number] Self/Same as Patient MIRTA SOSA [id number] [employer] MIRTA SOSA [id number] Self/Same as Patient MIRTA SOSA [id number] [place] Medicaid SELF PAY Personal Plan of Care No Known Plan of Care Information Social History Query Response Date Recorded Comment Alcohol Use No February 15, 2017 7:44am Smoking Status Current every day smoker June 12 0 4:25pm Substance/Street Drug Use No February 15 017 7:44am alcohol intake frequency 0-2 drinks per day August 18, 2016 11:27am Query Response Start Date Stop Date Smoking Status Current every day smoker Vital Signs Vital Reading Result Reference Range Collection Date/Time Height 5 ft 1.5 in June 12, 2019 3:39pm Weight 61.235 kg June 12, 2019 3:39pm Temperature n/a Pulse 64 BPM 60-100 April 10 9 8:12am Respiration 14 RPM 12-April 10 9 8:12am Pulse Oximetry n/a Blood Pressure Systolic 110 100-140 duong2019 3:39pm Blood Pressure Diastolic 62 50-85 Jun [facility] 2019 3:39pm Body Mass Index 25.0 June 12 020 3:39pm
--- OUTSIDE RECORDS SUMMARY | 2022-10-22 01:03 | XMS_ITS | Continuity of Care Document ---
Author Name Unknown Organization [facility] Address [address] [facility] [address] [place] [address] Phone [phone] Care Team Providers Care Paper Machine Backtender Name Role Phone PETER HERNÁNDEZ MD Care Team Information Mold Sprayer U navailable Problems Active Problems Provider Date Type 1 diabetes mellitus uncontrolled Onset: 07/16/2009 Adult health examination Onset: 06/01/2007 Allergies and adverse reactions Active Allergies Criticality Reaction Severity Comments Date Levi Alcantara Unable to assess criticality 03/26/2011 Medications Active Medications SIG Qnty Indications Order ing Provider Date Atorvastatin Gjaloie43nt Tablets 1 by mouth every day 90tabs E10.9 Peter Hernández MD 06/27/2019 Proair FRG477(90Base) mcg/Act Aerosol inhale 1-2 puffs every 4-6 hours as needed for shortness of breath/cough 8.500gm J20.9 ARTIE Fenton 04/14/2018 Wvysoct142Jhzu/ML Solution E10.65 Unknown 12/24/2011 BD Pen Needle/Mini/Ultrafine /31G X 3/1631G X 5 mm Misc Unknown 07/16/2009 Freestyle Lite Blood Glucose Monitoring SystemDevice Unknown 06/27/2009 Freestyle LancetsMisc E10.65 Unknown 06/27/2009 Freestyle Lite TestStrips E10.65 Unknown 06/27/2009 Immunizations CPT Code Status Date Vaccine Lot # [id number] Given 09/01/2020 Moderna Covid-19 Vac 12+ 54918 Given 06/27/2019 Influenza Virus Vacc,Split, Preservative Free Quadrivalent 0.5ML [id number] 78030 Given 05/24/2018 Influenza Virus Vacc,Split, Preservative Free Quadrivalent 0.5ML [id number] 35838 Given 05/05/2016 Influenza Virus Vaccine Split, Intramuscular Use Trivalent 0.5ML 25769 Given 04/28/2015 Influenza Virus Vaccine Split, Intramuscular Use Trivalent 0.5ML 04691 Given 04/25/2014 Influenza Virus Vaccine Split, Intramuscular Use Trivalent 0.5ML 86723 Given 04/05/2012 Tetanus, Diphth eria Toxoids/Acellular Pertussis Vacc 7 Or > 0.5ML 16664 Given 04/05/2012 Influenza Virus Vaccine Split, Intramuscular Use Trivalent 0.5ML 07831 Given 03/17/2011 Influenza Virus Vaccine Split, Intramuscular Use Trivalent 0.5ML 88729 Given 04/15/2010 Influenza Virus Vaccine Split, Intramuscular Use Trivalent 0.5ML 37844 Given 03/23/2010 Pneumococcal-23 Vaccine 2 Yrs Or Older 0.5ML 20580 Given 03/22/2005 Td Preservative Free For Use In Individuals 7 Yrs Or Older 0.5ML Referrals Refer to Reason for Referral Status Appt Will e Candace Corley MD 07/12/19 DB Faxed r equest checking status 06/28/19 DB Faxed notes, they will contact Pt to schedule L thigh lesion Tue07/26/2019
--- OUTSIDE RECORDS SUMMARY | 2022-10-22 01:03 | XMS_ITS | Continuity of Care Document ---
Author Name [facility] Address [address] [place] [address] [facility] Address [address] [place] [address] Care Team Providers Care Steamer Gum Candy Name Role Phone Huseyin Zazueta Primary Care Physician Steven Mejia Attending Physician Allergies, Adverse Reactions, Alerts Allergen Type Severity [...] procedures. Relevant Diagnostic Tests and/or Laboratory Data No known relevant diagnostic tests, laboratory data, and/or discharge summary. Hospital Discharge Instructions No known hospital discharge [...] Admit/Visit Date Discharge/Departure Date Attending Provider Departed Physician/P lorraine Office Visit [facility] INSURANCE CLAIMS CLERK June 12, 2019 3:28pm June 12, 2019 4:01pm Steven Mejia Departed Referred [facility] Pathology June 12, 2019 12:19am June 12, 2019 12:20am JackieBillSteven Departed Physician/P rovider Office Visit [facility] INSURANCE CLAIMS CLERK April 10, 2019 8:05am April 10, 2019 8:32am Jackie Steven Departed Physician/P rovider Office Visit [facility] INSURANCE CLAIMS CLERK April 10, 2019 12:00am April 10, 2019 Medent, Conversion Functional Status No known functional status. Immunizations No known immunizations. Payers Payer Name Policy Type Covered Libertarian Covered Libertarian Id Relationship Subscriber Subscriber Id [employer] Commercial MIRTA SOSA [id number] Self/Same as Patient MIRTA SOSA [id number] [employer] Commercial MIRTA SSOA [id number] Self/Same as Patient MIRTA SOSA [id number] [facility] [employer] (DO NOT USE) Commercial MIRTA SOSA [id number] Self/Same as Patient MIRTA SOSA [id number] [employer] Commercial MIRTA SOSA [id number] Self/Same as Patient MIRTA SOSA [id number] [place] Medicaid SELF PAY Personal [...] April 10 9 8:12am Respiration 14 RPM -April 10 8:12am Pulse Oximetry n/a Blood Pressure Systolic 110 100-140 duong2019 3:39pm Blood Pressure Diastolic 62 50-85 Jeremie ua2019 3:39pm Body Mass Index 25.0 June 12 020 3:39pm
--- OUTSIDE RECORDS SUMMARY | 2022-10-22 01:03 | XMS_ITS | Continuity of Care Document ---
Author Name [facility] Address [address] [place] [address] Organization [facility] Address [address] [place] [address] Care Team Providers Care Homeland Security Program Specialist Name Role Phone Huseyin Zazueta Primary Care Physician [phone] Huseyin Zazueta Attending Physician Allergies, Adverse Reactions, Alerts No known allergies. Medications Active Medications Medication Dose Units Route Sig Start Date Status Insulin Glargine [Lantus Solostar] 30 UNIT SUBCUTANEOUS EVERY MORNING August 18 7 Active Insulin Aspart [Novolog Flexpen] 5 UNITS SUBCUTANEOUS TID WITH MEALS February Active Discontinued Medications Medication Dose Units Route Sig Start Date Discontinu ed Date Status Insulin Glargine [Lantus Solostar] 1 UNIT SUBCUTANEOUS ONCE August 18, 2016 August 18, 2016 Discontinued Problem List No problem information available. Procedures Procedure Date Status Urine Culture June 22, 2017 active COLONOSCOPY W/LESION REMOVAL February 15, 2017 active Relevant Diagnostic Tests and/or Laboratory Data Laboratory Results Test Date/Time Result Interp. Ref. Range Result Co mment Urine Creatinine May 10, 2017 3:15pm 37.4 mg/dL No Reference Range established. Urine Random Microalbumin May 10, 2017 3:15pm < 0.6 Urine Microalbumin/Creatinin e Ratio May 10, 2017 3:15pm TNP Test not performed Ratio not calculated, UMALB <0.6. Creatinine May 10, 2017 3:23pm 0.53 mg/dL 0.52-1.04 Glomerular Filtration Rate Calc May 10, 2017 3:23pm > 60 mL/min 60.0- Aspartate Amino Transf (AST/SGOT) May 10, 2017 3:23pm 18 U/L 14-36 Alanine Aminotransferase (ALT/SGPT) May 10, 2017 3:23pm 22 U/L 9-52 Cholesterol Level May 10, 2017 3:23pm 199 mg/dL 59-199 HDL Cholesterol May 10, 2017 3:23pm 60 mg/dL 40-60 The National Cholesterol Education Program (NCEP) has set the following guidelines (reference values) for cholesterol, HDL: Low HDL: <40 mg/dL Normal: 40-60 mg/dL Desirable: >60 mg/dL LDL Cholesterol May 10, 2017 3:23pm 121.8 mg/dL 0-129 VLDL Cholesterol May 10, 2017 3:23pm 17.2 mg/dL 0-32 Cholesterol/HDL Ratio May 10, 2017 3:23pm 3.31 0-3.9 Triglycerides Level May 10, 2017 3:23pm 86 mg/dL 0-149 Hemoglobin A1c Percent May 10, 2017 3:23pm 8.55 % High 4.2-6.5 < 7% Recommended goal by ADA guidelines 7-8% Suboptimal by ADA guidelines >8% Further action suggested by ADA guidelines Estimated Average Glucose mg/dL May 10, 2017 3:23pm 199 mg/dL Advance Directives Advance Directive Response Recorded Date/ Time Do we [place] [facility] October 11, 2016 10:50am Does patient have an Advanced Directive? No March 13, 2010 12:10am Pt has a Living Will? No March 13, 2010 12:10am Pt has a Power of Counter Hand? No Octo 2009 12:10am Hospital Discharge Instructions No known hospital discharge instructions. Hospital Discharge Medications Medication Dose Units Route Sig Qty Days Order Date Status Ins tructions Insulin Glargine 30 UNIT SUBCUTANEOU S EVERY MORNING August 18, 2016 Active Insulin Glargine 1 UNIT SUBCUTANEOU S ONCE August 18, 2016 Discontinued Insulin Aspart 5 UNITS SUBCUTANEOU S TID WITH MEALS February 15, 2017 Active Encounters Encounter Facility Location Admit/Visit Date Discharge/Departure Date Attending Provider Departed Referred [facility] June 22, 2017 7:24pm June 22, 2017 7:25pm Huseyin Zazueta Departed Referred [facility] Pathology June 15, 2017 7:46am June 15, 2017 7:47am Huseyin Zazueta Departed Referred [facility] May 10, 2017 9:46pm May 10, 2017 9:47pm Huseyin Zazueta Departed Referred [facility] May 10, 2017 8:39pm May 10, 2017 8:40pm Huseyin Zazueta Departed Referred [facility] May 10, 2017 7:44pm May 10, 2017 7:45pm Huseyin Zazueta Departed Surgical Day Care [facility] Surgical Services February 15, 2017 7:24am February 15, 2017 10:16am Celeste Villafana Departed Emergency [facility] Emergency Department August 18, 2016 11:11am August 18, 2016 11:53am Functional Status No known functional status. Immunizations No known immunizations. Payers Payer Name Policy Type Covered Green Party Covered Green Party Id Relationship Subscriber Subscriber Id [employer] Commercial MIRTA SOSA [id number] Self/Same as Patient MIRTA SOSA [id number] [facility] [employer] (DO NOT USE) Commercial MIRTA SOSA [id number] Self/Same as Patient MIRTA SOSA [id number] [place] Medicaid SELF PAY Personal Plan of Care No Known Plan of Care Information Social History Query Response Start Date Stop Date Smoking Status Current every day smoker Vital Signs Vital Reading Result Reference Range Collection Date/Time Height n/a Weight n/a Temperature 99 F 97.6 F-99.6 F August 18, 2016 11:16am Pulse 71 BPM 60-100 February 15 017 10:15am Respiration 15 RPM -February 15 017 10:15am Pulse Oximetry 97 % 95-100 February 15, 2017 10:15am Blood Pressure Systolic 103 100-140 Sept ember 2016 10:15am Blood Pressure Diastolic 70 50-85 Sep tem2016 10:15am Body Mass Index n/a
--- OUTSIDE RECORDS SUMMARY | 2022-10-22 01:03 | XMS_ITS | Continuity of Care Document ---
Author Name [facility] Address [address] [place] [address] Organization [facility] Address [address] [place] [address] Care Team Providers Care Hospital Intern Name Role Phone Huseyin Zazueta Primary Care Physician Steven Mejia Attending Physician Allergies, Adverse Reactions, Alerts No known allergies. Medications Active Medications Medication Dose Units Route Sig Start Date Status Insulin Glargine [Lantus Solostar] 30 UNITS SUBCUTANEOUS EVERY MORNING August 18 7 Active Insulin Aspart U-100 [Novolog Flexpen] 5 UNITS SUBCUTANEOUS TID WITH MEALS February Active Discontinued Medications Medication Dose Units Route Sig Start Date Discontinu ed Date Status Insulin Glargine [Lantus Solostar] 1 UNITS SUBCUTANEOUS ONCE August 18, 2016 August 18, 2016 Discontinued Problem List No problem information available. Procedures Procedure Date Status Urine Culture June 22, 2017 completed Relevant [...] mg/dL May 10, 2017 3:23pm 199 mg/dL Microbiology Results Procedure Source Result Collection Date/Time Resu lt Date/Time Urine Culture Ur,Clean Catch No results entered Jeff 2017 4:09pm Advance Directives Advance Directive Response Recorded Date/ Time Do we [place] [facility] October 11, 2016 10:50am Does patient have an Advanced Directive? No March 13, 2010 12:10am Pt has a Living Will? No March 13, 2010 12:10am Pt has a Power of Dance Teacher? No Octo 2009 12:10am Hospital Discharge Instructions No known hospital discharge instructions. Hospital Discharge Medications Medication Dose Units Route Sig Qty Days Order Date Status Ins tructions Insulin Glargine 30 UNITS SUBCUTANEOU S EVERY MORNING August 18, 2016 Active Insulin Glargine 1 UNITS SUBCUTANEOU S ONCE August 18, 2016 Discontinued Insulin Aspart U-100 5 UNITS SUBCUTANEOU S TID WITH MEALS February 15, 2017 Active Encounters Encounter Facility Location Admit/Visit Date Discharge/Departure Date Attending Provider Departed Referred [facility] Pathology February 15, 2018 7:34am February 15, 2018 7:35am Steven Mejia Departed Referred [facility] January 12, 2018 9:21pm January 12, 2018 9:22pm Huseyin Zazueta Departed Referred [facility] June 22, 2017 7:24pm June 22, 2017 7:25pm Huseyin Zazueta Departed Referred [facility] Path[facility] June 15, 2017 7:46am June 15, 2017 7:47am Huseyin Zazueta Departed Referred [facility] May 10, 2017 9:46pm May 10, 2017 9:47pm Huseyin Zazueta Departed Referred [facility] May 10, 2017 8:39pm May 10, 2017 8:40pm Huseyin Zazueta Departed Referred [facility] May 10, 2017 7:44pm May 10, 2017 7:45pm Huseyin Zazueta Functional Status No known functional status. Immunizations No known immunizations. Payers Payer Name Policy Type Covered Alliance Party Covered Alliance Party Id Relationship Subscriber Subscriber Id [employer]ET[employer] Commercial MIRTA SOSA [id number] Self/Same as Patient MIRTA SOSA [id number] [employer] Commercial MIRTA SOSA [id number] Self/Same as Patient MIRTA SSOA [id number] [facility] [employer] (DO NOT USE) Commercial MIRTA SOSA [id number] Self/Same as Patient MIRTA SOSA [id number] [place] Medicaid SELF PAY Personal Plan of Care No Known Plan of Care Information Social History Query Response Start Date Stop Date Smoking Status Current every day smoker Vital Signs No known vital signs results.
--- OUTSIDE RECORDS SUMMARY | 2022-10-22 01:03 | XMS_ITS | Continuity of Care Document ---
Author Name [facility] Address [address] [place] [address] Organization [facility] Address [address] [place] [address] Care Team Providers Care Switch Operator Name Role Phone Huseyin Zazueta Primary Care Physician [phone] Huseyin Zazueta Attending Physician [phone] Allergies, Adverse Reactions, Alerts Allergen Type Severity [...] have a copy on [place] here [place] [facility] No October 11, 2016 10:50am Does patient have an Advanced Directive? No March 13, 2010 12:10am Pt has a Living Will? No March 13, 2010 12:10am Pt has a Power of Blogs Manager? No Maro 2009 12:10am Hospital Discharge Instructions No known hospital discharge instructions. Hospital Discharge Medications Medication Dose Units Route Sig Qty Days Order Date Status Ins tructions Insulin Glargine 1 UNITS SUBCUTANEOUS ONCE August 042016 Discontinued Insulin Aspart U-100 5 UNITS SUBCUTANEOUS TID WITH MEALS February 15, 2017 Active Encounters Encounter Facility Location Admit/Visit Date Discharge/Departure Date Attending Provider Departed Referred [facility] May 24, 2018 6:52pm May 24, 2018 6:53pm CarlitaBeckay Departed Surgical Day Care [facility] Surgical Services March 22, 2018 7:29am March 22, 2018 8:41am Steven Mejia Departed Surgical Day Care [facility] March 15, 2018 7:36am March 15, 2018 8:37am Steven Mejia Departed Referred [facility] Pathology February 15, 2018 7:34am February 15, 2018 7:35am Steven Mejia Departed Referred [facility] January 12, 2018 9:21pm January 12, 2018 9:22pm Carlita Huseyin Departed Referred [facility] June 22, 2017 7:24pm June 22, 2017 7:25pm Carlita Huseyin Departed Referred [facility] June 15, 2017 7:46am June 15, 2017 7:47am Huseyin Zazueta Functional Status No known functional status. Immunizations No known immunizations. Payers Payer Name Policy Type Covered Alliance Party Covered Alliance Party Id Relationship Subscriber Subscriber Id [employer] Commercial MIRTA SOSA [id number] Self/Same as Patient MIRTA SOSA [id number] [employer] MIRTA SOSA [id number] Self/Same as Patient MIRTA SOSA [id number] [facility] [employer] (DO NOT USE) Commercial MIRTA SOSA [id number] Self/Same as Patient MIRTA SOSA [id number] [employer] MIRTA SOSA [id number] Self/Same as Patient MIRTA SOSA [id number] [place] Medicaid SELF PAY Personal [...]
--- OUTSIDE RECORDS SUMMARY | 2022-10-22 01:03 | XMS_ITS | Continuity of Care Document ---
Author Name [facility] Address [address] [place] [address] Organization [facility] Address [address] [place] [address] Care Team Providers Care Marketing Sales Manager Name Role Phone Huseyin Zazueta Primary Care Physician Huseyin Zazueta Attending Physician Allergies, Adverse Reactions, Alerts Allergen [...] Result Co mment Thyroid Stimulating Hormone (TSH) 1.01 mlU/L 0.47-4.68 The results of this [...] Discharge/Departure Date Attending Provider Departed Referred [facility] June 27, 2019 7:00pm June 27, 2019 7:01pm Kingsleyelana Huseyin Departed Physician/P rovider Office Visit [facility] CALL CENTER TRAINER June 12, 2019 3:28pm June 12, 2019 4:01pm Steven Mejia Departed Referred [facility] Pathology June 12, 2019 12:19am June 12, 2019 12:20am Steven Mejia Departed Physician/P rovider Office Visit [facility] CALL CENTER TRAINER April 10, 2019 8:05am April 10, 2019 8:32am Steven Mejia Departed Physician/P rovider Office Visit [facility] CALL CENTER TRAINER April 10, 2019 12:00am April 10, 2019 Medent, Conversion Functional Status No known functional status. Immunizations No known immunizations. Payers Payer Name Policy Type Covered Alliance Party Covered Alliance Party Id Relationship Subscriber Subscriber Id [employer] Commercial MIRTA SOSA [id number] Self/Same as Patient MIRTA SOSA [id number] [employer] Commercial MIRTA SOSA [id number] Self/Same as Patient MIRTA SOSA [id number] [facility] [employer] (DO NOT USE) [employer] MIRTA SOSA [id number] Self/Same as Patient MIRTA SOSA [id number] [employer] MIRTA SOSA [id number] Self/Same as Patient MIRTA SOSA [id number] [place] Medicaid SELF PAY Personal [...] Oximetry n/a Blood Pressure Systolic 110 100-140 Emigdio duong2019 3:39pm Blood Pressure Diastolic 62 50-85 Jeremie yeager 2019 3:39pm Body Mass Index 25.0 June 12 3:39pm
--- OUTSIDE RECORDS SUMMARY | 2022-10-22 01:03 | XMS_ITS | Continuity of Care Document ---
Author Name [facility] Address [address] [place] [address] Organization [facility] Address [address] [place] [address] Care Team Providers Care Artistic Associate Name Role Phone Huseyin Zazueta Primary Care Physician [phone] Benedicto Diane Attending Physician Allergies, Adverse Reactions, Alerts Allergen Type Severity Reaction Last Updated Verified Status insulin detemir Allergy hives July 21, 2020 Y Active Medications Active Medications Medication Dose Units Route Sig Start Date Status In structions Insulin Aspart U-100 [Novolog U-100 Insulin Aspart] 0 Route .COMPLEX July 07, 2020 Active INSULIN PUMP USES 19.7 UNITS/DAY Discontinued Medications Medication Dose Units Route Sig Start Date Discontinued Date Status Instructions Levonorgestrel [Mirena] 1 INHALER INTRAUTER I ONCE April 10, 2019 July 21, 2020 Discontin ued Insulin Glargine [Lantus Solostar] 1 UNITS SUBCUTANE OUS ONCE August 18, 2016 August 18, 2016 Discontin ued Problem List Active Problems Medical Problem Onset Date Status HGSIL (high grade squamous i ntraepithelial lesion) on Pap smear of cervix February 15, 2018 Procedures Procedure Date Status Provider(s) Hysterectomy, abdominal, laparoscopic, with salpingectomy July 21, 2020 completed Benedicto Carbajal MD OF CERVIX W/SCOPE LEEP August 07, 2019 active Relevant Diagnostic Tests and/or Laboratory Data Laboratory Results Test Date/Time Result Interp. Ref. Range Result Co mment White Blood Count July 21, 2020 7:00am 9.19 1000/mm3 4.8-10.8 Red Blood Count July 21, 2020 7:00am 4.66 M/mm3 4.20-5.40 Hemoglobin July 21, 2020 7:00am 14.6 g/dL 12.0-16.0 Hematocrit July 21, 2020 7:00am 42.3 % 37-47 Mean Corpuscular Volume July 21, 2020 7:00am 90.8 fL 81.0-99.0 Mean Corpuscular Hemoglobin July 21, 2020 7:00am 31.3 pg High 27-31 Mean Corpuscular Hemoglobin Concent July 21, 2020 7:00am 34.5 g/dL 33-37 Red Cell Distribution Width July 21, 2020 7:00am 13.9 % 11.5-14.5 Platelet Count July 21, 2020 7:00am 284 1000/mm3 140-440 Mean Platelet Volume July 21, 2020 7:00am 10.4 fL 7.4-10.4 Chief Complaint and Reason for Visit Encounter Admit Date Chief Complaint Reason for V isit Registered Inpatient July 21, 2020 6:31am High grade squamous intraepithelial lesion on cyto Hospital Discharge Instructions Additional Discharge Instructions RACE STEWARD/LA P DC Instructions OUR GOAL You have been cared for by the Hospital Care Team at [facility] ([facility]). Our goal is to make sure that your discharge from the hospital is as safe as possible. This means making sure that: You understand the reason for your hospitalization. You understand your medications at discharge including any new prescriptions, changes to your medications, and stopped medications. You know the symptoms of your illness and when to call for help. You understand your discharge plan and instructions. A summary of your care will be sent to your primary care provider and other members of your care team that you identify. 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 Full activities may be resumed in 1 to 3 days. The stitches will absorb. Take bandaids off anytime. You may shower anytime, making sure incision sites are dried thoroughly. Observe incision sites for redness, swelling and/or drainage. No douching for 2 weeks No tampons for 2 weeks No intercourse for 2 weeks Nothing in vagina for 2 weeks If a Tubal Ligation was performed, it is extremely important for you to continue use of another control method until your post-operative visit and ask your doctor for further instructions at this time. Pain or Discomfort: You may experience cramping and low backache pain which can be relieved with your pain medicine. Minor pelvic pain and/or minor pain in the incisions may be present for one or two days. These symptoms should subside rather than increase. You may continue to have a vaginal discharge for a couple of days. This is normal unless you are soaking a regular pad per hour or if flow is heavier than a menstrual period. The gas used during the laparoscopy may cause a sense of bloating, or shoulder pain for 24-48 hours. This discomfort is often relieved by lying flat. A small amount of vaginal bleeding is normal for 24 hours after surgery. Notify your physician if you have any of the following symptoms: Pain unrelieved by pain medicine Fever higher than 100 degrees F (38 degrees C) Bleeding heavier than 1 regular pad per hour Persistent nausea and vomiting Increased abdominal pressure or discomfort Unable to empty your bladder completely WHO TO CALL CONTACT US AT [facility] [phone] [facility] DIRECTOR OF RESEARCH [phone] You have not seen your primary care provider if you have questions regarding your care in the hospital including questions regarding your medications, discharge instructions, or services arranged prior to seeing your primary care provider. WHEN TO GO TO THE EMERGENCY DEPARTMENT The Emergency Department is there for you when you need immediate care for serious illness, injury or severe symptoms. You should call 911 or return to the Emergency Department IF THE SYMPTOMS OF YOUR RECENT HOSPITALIZATION HAVE RETURNED OR SEVERELY WORSENED. THESE MIGHT INCLUDE: o o oUncontrolled bleeding oSevere pain not controlled by available oral pain medications oPersistent vomiting or vomiting blood oFainting oUnexpected shortness of breath or difficultly breathing oPersistent high fever greater than 101 oSeizures Instruction/Education Provided Hysterect gurdeep (DC) COVID 19 CDC D/C Instructions ([facility]) v.01/15/20 COVID 19 General Instructions- decrease the spread of coronavirus ([facility]) Goals: Hospital Discharge Medications Medication Dose Units Route Sig Qty Days Order Date Status Instructions Levonorgestrel 1 INHALER INTRAUTERI ONCE April 10, 2019 Discontinue d Insulin Glargine 1 UNITS SUBCUTANEO US ONCE August 18, 2016 Discontinue d Insulin Aspart U-100 0 Route .COMP MARITZA July 07, 2020 Active INSULIN PUMP USES 19.7 UNITS/DAY Encounters Encounter Facility Location Admit/Visit Date Discharge/Departure Date Attending Provider Registered Inpatient [facility] DIRECTOR OF RESEARCH July 21, 2020 6:31am Benedicto Diane Departed Physician/Pr ovider Office Visit [facility] DIRECTOR OF RESEARCH July 16, 2020 1:50pm July 16, 2020 2:10pm Benedicto Diane Departed Physician/Pr ovider Office Visit [facility] DIRECTOR OF RESEARCH June 05, 2020 1:07pm June 05, 2020 1:34pm Benedicto Diane Departed Physician/Pr ovider Office Visit [facility] DIRECTOR OF RESEARCH May 20, 2020 2:30pm May 20, 2020 2:38pm Steven Mejia Departed Referred [facility] Lab [facility] INTERNET MARKETING CONSULTANT April 14, 2020 10:21am April 14, 2020 10:22am Steven Mejia Departed Physician/Pr ovider Office Visit [facility] DIRECTOR OF RESEARCH April 14, 2020 10:20am April 14, 2020 10:32am Steven Mejia Registered Inpatient [facility] DIRECTOR OF RESEARCH August 07, 2019 12:46pm Steven Mejia Departed Referred [facility] Pathology July 26, 2019 12:08am July 26, 2019 12:09am Candace Corley Functional Status No known functional status. Immunizations No known immunizations. Plan of Care Instructions Hysterectomy (DC) COVID 19 CDC D/C Instructions ([facility]) v.01/15/20 COVID 19 General Instructions- decrease the spread of coronavirus ([facility]) Goals: Social History Query Response Date Recorded Comment Alcohol Use Yes July 08, 2020 11:00am 1/d ay Smoking Status Current every day smoker July 16 2:55pm Substance/Street Drug Use No July 08 11:00am alcohol intake frequency 0-2 drinks per day July 11:00am Query Response Start Date Stop Date Smoking Status Current every day smoker Vital Signs Vital Reading Result Reference Range Collection Date/Time Height 5 ft 2 in July 07 11:20am Weight 58.967 kg July 07 11:20am Temperature 97.5 F 97.6 F-99.6 F July 21 11:01am Pulse 58 BPM 60-100 July 21 2:10pm Respiration 16 RPM -July 21 2:10pm Pulse Oximetry 94 % 95-100 July 21, 2020 2:31pm Blood Pressure Systolic 102 100-140 Febr [facility] 2020 2:10pm Blood Pressure Diastolic 56 50-[facility] 2:10[facility] Body Mass Index 25.2 April 14, 2020 10:24am
--- OUTSIDE RECORDS SUMMARY | 2022-10-22 01:03 | XMS_ITS | Continuity of Care Document ---
Author Name [facility] Address [address] [place] [address] Organization [facility] Address [address] [place] [address] Care Team Providers Care Computer Service Technician Name Role Phone Huseyin Zazueta Primary Care Physician Huseyin Zazueta Attending Physician [phone] Allergies, Adverse Reactions, Alerts No known allergies. [...] problem information available. Procedures Procedure Date Status COLONOSCOPY W/LESION REMOVAL February 15, 2017 active [...] have a copy on file here at [facility]? No October 11, 2016 10:50am Does patient have an Advanced Directive? No March 13, 2010 12:10am Pt has a Living Will? No March 13, 2010 12:10am Pt has a Power of Dial Polisher? No Octo 2009 12:10am Hospital Discharge Instructions [...] Date Discharge/Departure Date Attending Provider Departed Referred [facility] Pathology May 10, 2017 9:46pm May 10, 2017 9:47pm Huseyin Zazueta Departed Referred [facility] May 10, 2017 8:39pm May 10, 2017 8:40pm Huseyin Zazueta Departed Referred [facility] May 10, 2017 7:44pm May 10, 2017 7:45pm Huseyin Zazueta Departed Surgical Day Care [facility] Surgical Services February 15, 2017 7:24am February 15, 2017 10:16am Celeste Villafana Departed Emergency [facility] Emergency Department August 18, 2016 11:11am August 18, 2016 11:53am Functional Status No known functional status. Immunizations No known immunizations. Payers Payer Name Policy Type Covered Constitution Party Covered Constitution Party Id Relationship Subscriber Subscriber Id [employer] Commercial MIRTA SOSA [id number] Self/Same as Patient MIRTA SOSA [id number] [facility] BLUE CROSS (DO NOT USE) Commercial MIRTA SOSA [id number] Self/Same as Patient MIRTA SOSA [id number] [place] Medicaid SELF PAY Personal Plan of Care No Known Plan of Care Information Social History Query Response Start Date Stop Date Smoking Status Current every day smoker Vital Signs Vital Reading Result Reference Range Collection Date/Time Height n/a Weight n/a Temperature 99 F 97.6 F-99.6 F August 18, 2016 11:16am Pulse 71 BPM 60-100 February 15 2 017 10:15am Respiration 15 RPM -February 15 017 10:15am Pulse Oximetry 97 % 95-100 February 15, 2017 10:15am Blood Pressure Systolic 103 100-140 Sept ember 2016 10:15am Blood Pressure Diastolic 70 50-85 Sep tem2016 10:15am Body Mass Index n/a
--- OUTSIDE RECORDS SUMMARY | 2022-10-22 01:03 | XMS_ITS | Continuity of Care Document ---
Author Name [facility] Address [address] [place] [address] Organization [facility] Address [address] [place] [address] Care Team Providers Care Rotary Adjuster Name Role Phone Huseiyn Zazueta Primary Care Physician Huseyin Zazueta Attending Physician [phone] Allergies, Adverse Reactions, Alerts No known allergies. [...] have a copy on file here at [facility]? No October 11, 2016 10:50am Does patient have an Advanced Directive? No March 13, 2010 12:10am Pt has a Living Will? No March 13, 2010 12:10am Pt has a Power of Bowling Pin Refinisher? No Octo 2009 12:10am Hospital Discharge Instructions [...] Date Discharge/Departure Date Attending Provider Departed Referred [facility] Pathology May 10, 2017 9:46pm May 10, 2017 9:47pm Huseyin Zazueta Departed Referred [facility] May 10, 2017 8:39pm May 10, 2017 8:40pm Huseyin Zazueta Departed Referred [facility] May 10, 2017 7:44pm May 10, 2017 7:45pm Huseyin Zazueta Departed Surgical Day Care [facility] Surgical Services February 15, 2017 7:24am February 15, 2017 10:16am Celeste Villafana Departed Emergency [facility] Emergency Department August 18, 2016 11:11am August 18, 2016 11:53am Functional Status No known functional status. Immunizations No known immunizations. Payers Payer Name Policy Type Covered Libertarian Covered Libertarian Id Relationship Subscriber Subscriber Id [employer] Commercial MIRTA SOSA [id number] Self/Same as Patient MIRTA SOSA [id number] [facility] BLUE CROSS (DO NOT USE) Commercial MIRTA SOSA [id number] Self/Same as Patient MIRTA SOSA [id number] [place] Medicaid SELF PAY Personal [...]
--- OUTSIDE RECORDS SUMMARY | 2022-10-22 01:03 | XMS_ITS | Continuity of Care Document ---
Author Name [facility] Address [address] [place] [address] Organization [facility] Address [address] [place] [address] Care Team Providers Care Floor Coverings Salesperson Name Role Phone Huseyin Zazueta Primary Care Physician [phone] Huseyin Zazueta Attending Physician Allergies, Adverse Reactions, [...] have a copy on file here at [facility]? No October 11, 2016 10:50am Does patient have an Advanced Directive? No March 13, 2010 12:10am Pt has a Living Will? No March 13, 2010 12:10am Pt has a Power of Clerical Investigator? No Octo 2009 12:10am Hospital Discharge Instructions [...] Date Discharge/Departure Date Attending Provider Departed Referred [facility] Pathology May 10, 2017 9:46pm May 10, 2017 9:47pm Huseyin Zazueta Departed Referred [facility] May 10, 2017 8:39pm May 10, 2017 8:40pm Huseyin Zazueta Departed Referred [facility] May 10, 2017 7:44pm May 10, 2017 7:45pm Huseyin Zazueta Departed Surgical Day Care [facility] Surgical Services February 15, 2017 7:24am February 15, 2017 10:16am Celeste Villafana Departed Emergency [facility] Emergency Department August 18, 2016 11:11am August 18, 2016 11:53am Functional Status No known functional status. Immunizations No known immunizations. Payers Payer Name Policy Type Covered Green Party Covered Green Party Id Relationship Subscriber Subscriber Id [employer] Commercial MIRTA SOSA [id number] Self/Same as Patient MIRTA SOSA [id number] [facility] BLUE CROSS (DO NOT USE) Commercial MIRTA SOSA [id number] Self/Same as Patient MIRTA SOSA [id number] [place] Medicaid SELF PAY Personal [...]
--- OUTSIDE RECORDS SUMMARY | 2022-10-22 01:03 | XMS_ITS | Continuity of Care Document ---
Author Name [facility] Address [address] [place] [address] Organization [facility] Address [address] [place] [address] Care Team Providers Care Construction Analyst Name Role Phone Huseyin Zazueta Primary Care Physician [phone] Huseyin Zazueta Attending Physician Allergies, Adverse Reactions, [...] information available. Procedures Procedure Date Status Provider(s) Colonoscopy, with polypectomy and biopsy February 15, 2017 completed Faviola Mccarthy Urine Culture June 22, 2017 completed Relevant [...] Urine Culture Ur,Clean Catch No results entered Junrai 2017 4:09pm Advance Directives Advance Directive Response Recorded Date/ Time Do we have a copy on file here at [facility]? No October 11, 2016 10:50am Does patient have an Advanced Directive? No March 13, 2010 12:10am Pt has a Living Will? No March 13, 2010 12:10am Pt has a Power of Gun Stock Checker? No Octo 2009 12:10am Hospital Discharge Instructions [...] Departed Referred [facility] Pathology January 12, 2018 9:21pm January 12, 2018 9:22pm Huseyin Zazueta Departed Referred [facility] June 22, 2017 7:24pm June 22, 2017 7:25pm Huseyin Zazueta Departed Referred [facility] Pathology June 15, 2017 7:46am June 15, 2017 7:47am Huseyin Zazueta Departed Referred [facility] Pathology May 10, 2017 9:46pm May 10, 2017 9:47pm Huseyin Zazueta Departed Referred [facility] Primary [facility] May 10, 2017 8:39pm May 10, 2017 8:40pm Huseyin Zazueta Departed Referred [facility] Primary [facility] May 10, 2017 7:44pm May 10, 2017 7:45pm Huseyin Zazueta Departed Surgical Day Care [facility] Surgical Services February 15, 2017 7:24am February 15, 2017 10:16am Celeste Villafana Functional Status No known functional status. Immunizations No known immunizations. Payers Payer Name Policy Type Covered Constitution Party Covered Constitution Party Id Relationship Subscriber Subscriber Id [employer] Commercial MIRTA SOSA [id number] Self/Same as Patient MIRTA SOSA [id number] [employer] EM[employer]YEES Commercial MIRTAALYSE SOSA [id number] Self/Same as Patient MIRTA SOSA [id number] [facility] [employer] (DO NOT USE) Commercial MIRTA SOSA [id number] Self/Same as Patient MIRTA SOSA [id number] [place] Medicaid SELF PAY Personal Plan of Care No Known Plan of Care Information Social History Query Response Start Date Stop Date Smoking Status Current every day smoker Vital Signs Vital Reading Result Reference Range Collection Date/Time Height n/a Weight n/a Temperature n/a Pulse 71 BPM 60-100 February 15 017 10:15am Respiration 15 RPM 05-29February 15 017 10:15am Pulse Oximetry 97 % 95-100 February 15, 2017 10:15am Blood Pressure Systolic 103 100-140 Sept emb2016 10:15am Blood Pressure Diastolic 70 50-85 Sep tem2016 10:15am Body Mass Index n/a
--- OUTSIDE RECORDS SUMMARY | 2022-10-22 01:04 | XMS_ITS | Continuity of Care Document ---
Author Name [facility] Address [address] [place] [address] Organization [facility] Address [address] [place] [address] Care Team Providers Care Air Brake Operator Name Role Phone Huseyin Zazueta Primary Care Physician [phone] Huseyin Zazueta Attending Physician [phone] Allergies, Adverse Reactions, Alerts No known allergies. [...] Status Urine Culture June 22, 2017 completed COLONOSCOPY W/LESION REMOVAL February 15, 2017 active [...] have a copy on file here at [facility]? No October 11, 2016 10:50am Does patient have an Advanced Directive? No March 13, 2010 12:10am Pt has a Living Will? No March 13, 2010 12:10am Pt has a Power of Medical Grade Shoemaker? No Octo 2009 12:10am Hospital Discharge Instructions [...] Referred [facility] June 22, 2017 7:24pm June 22, 2017 7:25pm Huseyin Zazueta Departed Referred [facility] Pathology June 15, 2017 7:46am June 15, 2017 7:47am Huseyin Zazueta Departed Referred [facility] Pathology May 10, 2017 9:46pm May 10, 2017 9:47pm Huseyin Zazueta Departed Referred [facility] May 10, 2017 8:39pm May 10, 2017 8:40pm Huseyin Zazueta Departed Referred [facility] Primary Care [facility] May 10, 2017 7:44pm May 10, 2017 7:45pm Huseyin Zazueta Departed Surgical Day Care [facility] Surgical Services February 15, 2017 7:24am February 15, 2017 10:16am LedyCeleste alcazar Departed Emergency [facility] Emergency Department August 18, 2016 11:11am August 18, 2016 11:53am Functional Status No known functional status. Immunizations No known immunizations. Payers Payer Name Policy Type Covered Democrat Covered Democrat Id Relationship Subscriber Subscriber Id [employer] Commercial MIRTA SOSA [id number] Self/Same as Patient MIRTA SOSA [id number] [employer] EM[employer] [place] MIRTA SOSA [id number] Self/Same as Patient MIRTA SOSA [id number] [facility] [employer] (DO NOT USE) Commercial MIRTA SOSA [id number] Self/Same as Patient MIRTA SOSA [id number] [place] Medicaid SELF PAY Personal [...] 10:15am Blood Pressure Diastolic 70 50-85 Sep tember 2016 10:15am Body Mass Index n/a
--- OUTSIDE RECORDS SUMMARY | 2022-10-22 01:04 | XMS_ITS | Continuity of Care Document ---
Author Name [facility] Address [address] [place] [address] Organization [facility] Address [address] [place] [address] Care Team Providers Care Web Marketing Specialist Name Role Phone Huseyin Zazueta Primary Care Physician Allergies, Adverse Reactions, Alerts Allergen Type Severity Reaction Last Updated Verified Status No Known Allergies Allergy August 18, 2016 N Active Medications Active Medications Medication Dose Units Route Sig Qty Days Start Date St atus Insulin Glargine [Lantus Solostar] 1 unit SUB-Q ONCE August 18, 2016 Active Novolog Mix 70-30 FlexPen August 18, 2016 Active Clindamycin Hcl 300 MG ORAL FOUR TIME S DAILY 40 10 August 18, 2016 Active Discontinued Medications Medication Dose Units Route Sig Qty Days Start Date Di scontinued Date Status Insulin Glargine [Lantus Solostar] 1 unit SUB-Q ONCE August 18, 2016 August 18, 2016 Discontinued Problem List No problem information available. Procedures No known history of procedures. Reason for Referral Reason for Referral Date Referral was Provided Provider Office Contact Location Relevant Diagnostic Tests and/or Laboratory Data Laboratory Results Test Date/Time Result Interp. Ref. Range Result Comment Urine Creatinine May 05, 2016 1:55pm 12.8 mg/dL No Reference Ran ge established. Urine Random Microalbumin May 05, 2016 1:55pm < 0.6 Urine Microalbumin/Creatin ine Ratio May 05, 2016 1:55pm TNP Test not perform ed Ratio not calculated, UMALB <0.6. Blood Urea Nitrogen May 05, 2016 1:55pm 7 mg/dL 7-17 Creatinine May 05, 2016 1:55pm 0.6 mg/dL 0.52-1.0 4 Glomerular Filtration Rate Calc May 05, 2016 1:55pm > 60 mL/min Aspartate Amino Transf (AST/SGOT) May 05, 2016 1:55pm 19 U/L 14-36 Alanine Aminotransferase (ALT/SGPT) May 05, 2016 1:55pm 22 U/L 9-52 Cholesterol Level May 05, 2016 1:55pm 197 mg/dL 59-199 HDL Cholesterol May 05, 2016 1:55pm 50 mg/dL 40-60 The National Cholesterol Education Program (NCEP) has set the following guidelines (reference values) for cholesterol, HDL: Low HDL: <40 mg/dL Normal: 40-60 mg/dL Desirable: >60 mg/dL LDL Cholesterol May 05, 2016 1:55pm 136.4 mg/dL High 0-129 VLDL Cholesterol May 05, 2016 1:55pm 10.6 mg/dL 0-32 Cholesterol/HDL Ratio May 05, 2016 1:55pm 3.94 High 0-3.9 Triglycerides Level May 05, 2016 1:55pm 53 mg/dL 0-149 Hemoglobin A1c Percent May 05, 2016 1:55pm 8.78 % High 4.2-6.5 < 7% Recommended goal by ADA guidelines 7-8% Suboptimal by ADA guidelines >8% Further action suggested by ADA guidelines Estimated Average Glucose mg/dL May 05, 2016 1:55pm 205 mg/dL Bordetella Source April 27, 2016 2:10pm Nasopharyngeal swab Bordetella pertussis DNA (PCR) April 27, 2016 2:10pm Negative -- -REFERENCE VALUE Not Applicable Bordetella parapertussis DNA (PCR) April 27, 2016 2:10pm Negative -- -REFERENCE VALUE Not Applicable -ADDITIONAL INFORMATION------- This test was developed and its performance characteristics determined by [facility] in a manner consistent with CLIA requirements. This test has not been cleared or approved by the U.S. Food and Drug Administration. Test Performed by: [facility] - [address] [address] Robotic Maintenance Technician: Gigi Anders II, M.D., Ph.D. Advance Directives Advance Directive Response Recorded Date/ Time Do we have a copy on file here at [facility]? No October 11, 2016 10:50am Does patient have an Advanced Directive? No March 13, 2010 12:10am Pt has a Living Will? No March 13, 2010 12:10am Pt has a Power of Log Loader? No Octo 2009 12:10am Chief Complaint and Reason for Visit Encounter Admit Date Chief Complaint Reason for V isit Departed Emergency August 18, 2016 11:11am abscess Hospital Discharge Instructions No known hospital discharge instructions. Hospital Discharge Medications Medication Dose Units Route Sig Qty Days Order Date Status Instructions Insulin Glargine 1 unit SUB-Q ONCE August 18, 2016 Active Insulin Glargine 1 unit SUB-Q ONCE August 18, 2016 Discontinued Novolog Mix 70-30 FlexPen August 18, 2016 Active Clindamycin Hcl 300 MG ORAL FOUR TIMES DAILY 40 10 August 18, 2016 Active Encounters Encounter Facility Location Admit/Visit Date Discharge/Departure Date Attending Provider Departed Emergency [facility] Emergency Department August 18, 2016 11:11am August 18, 2016 11:53am Registered Referred [facility] May 05, 2016 7:45pm Huseyin Zazueta Registered Referred [facility] April 27, 2016 6:52pm Prabhakar Jimenez Functional Status No known functional status. Immunizations No known immunizations. Payers Payer Name Policy Type Covered Constitution Party Covered Constitution Party Id Relationship Subscriber Subscriber Id [employer] Commercial FEP [employer] (DO NOT USE) Commercial MIRTA SOSA [id number] Self/Same as Patient MIRTA SOSA [id number] [place] Medicaid SELF PAY Personal Plan of Care No Known Plan of Care Information Social History Query Response Start Date Stop Date Smoking Status Heavy Tobacco Smoker Vital Signs Vital Reading Result Reference Range Collection Date/Time Height n/a Weight 57.606 kg August 18, 2016 11:16am Temperature 99 F 97.6 F-99.6 F August 18, 2016 11:16am Pulse 90 BPM 60-100 August 18, 2016 11:16am Respiration 16 RPM 12-August 18, 2016 11:16am Pulse Oximetry 100 % 95-100 August 18 7 11:16am Blood Pressure Systolic 103 100-140 [facility] 2016 11:16am Blood Pressure Diastolic 77 50-85 [facility] 2016 11:16am Body Mass Index n/a
--- OUTSIDE RECORDS SUMMARY | 2022-10-22 01:04 | XMS_ITS | Continuity of Care Document ---
Author Name [facility] Address [address] [place] [address] Organization [facility] Address [address] [place] [address] Support Name Relationship Address Phone Huseyin Zazueta Primary Care Provider [facility] [address] [place] [address] Benedicto Diane Attending Provider [facility] Y[facility] [address] [place] [address] Referral, Self Referring Provider Unknown Unavail able Allergies, Adverse Reactions, Alerts Allergen Type Severity Reaction Last Updated Verified Status insulin detemir Allergy hives August 20, 2020 Y A ctive Medications Active Medications Medication Dose Units Route [...] Active Problems Medical Problem Onset Date Status H/O bilateral salpingectomy HGSIL (high grade squamous i ntraepithelial lesion) on Pap smear of cervix February 15, 2018 H/O: hysterectomy Procedures No known history of procedures. Relevant Diagnostic Tests and/or Laboratory Data Laboratory Results Test Date/Time Result Interp. Ref. Range Result Co mment POC Urinalysis Method August 20, 2020 1:36pm Chemstrip Manual Urine Color (Manual) August 20, 2020 1:36pm Yellow Urine Clarity (Manual) August 20, 2020 1:36pm Clear POC Urine Glucose August 20, 2020 1:36pm 1000 POC Urine Bilirubin Confirmation August 20, 2020 1:36pm Small (+) Urine Ketones (Manual) August 20, 2020 1:36pm Large (+++) Urine Specific [place] (Manual) August 20, 2020 1:36pm 1.025 POC Urine RBC August 20, 2020 1:36pm Negative Urine pH (Manual) August 20, 2020 1:36pm 5.0 POC Urine Protein Confirmation August 20, 2020 1:36pm Negative Urine Urobilinogen (Manual) August 20, 2020 1:36pm 2 Urine Nitrite (Manual) August 20, 2020 1:36pm Negative Urine Leukocyte Esterase (Manual) August 20, 2020 1:36pm Negative Chief Complaint and Reason for Visit Encounter Admit Date Chief Complaint Reason for V isit Departed Physician/Provider Office Visit August 20, 2020 12:58pm Post Operative Visit HGSIL (high grade squamous intraepithelial lesion) on Pap smear of cervix Hospital Discharge Instructions No known hospital discharge [...] Admit/Visit Date Discharge/Departure Date Attending Provider Departed Physician/Pr ovider Office Visit [facility] PENAL OFFICER August 20, 2020 12:58pm August 20, 2020 1:28pm Benedicto Diane Departed Physician/Pr ovider Office Visit [facility] PENAL OFFICER July 29, 2020 3:21pm July 29, 2020 3:45pm Steven Mejia Encounter Diagnosis Onset Date HGSIL (high grade squamous i ntraepithelial lesion) on Pap smear of cervix February 15, 2018 Functional Status No known functional status. Immunizations No known immunizations. Plan of Care No Known Plan of Care Information Social History Query Response Date Recorded Comment Alcohol Use Yes July 08, 2020 11:00am 1/d ay Smoking Status Current every day smoker August 20, 2020 1:07pm Substance/Street Drug Use No July 08 11:00am alcohol intake frequency 0-2 drinks per day July 11:00am Query Response Start Date Stop Date Smoking Status Current every day smoker Vital Signs Vital Reading Result Reference Range Collection Date/Time Height 5 ft 2 in August 20, 2020 1:02pm Weight 59.024 kg August 20, 2020 1:02pm Pulse 94 BPM 60-100 August 20, 2020 1:02pm Respiration 16 RPM 12-24 August 20, 2020 1:02pm Blood Pressure Systolic 108 100-140 [facility] 2020 1:02pm Blood Pressure Diastolic 60 50-85 [facility] 2020 1:02pm Body Mass Index 23.8 August 20 1:02pm
--- OUTSIDE RECORDS SUMMARY | 2022-10-22 01:04 | XMS_ITS | Continuity of Care Document ---
Author Name [facility] Address [address] [place] [address] Organization [facility] Address [address] [place] [address] Care Team Providers Care Mill Control Operator Name Role Phone Huseyin Zazueta Primary Care Physician [phone] Steven Mejia Attending Physician [phone] Allergies, Adverse Reactions, Alerts No allergy information available. Medications Active Medications Medication Dose Units Route [...] procedure March 15, 2018 completed Steven Mejia Urine Culture June 22, 2017 completed Relevant [...] Urine Culture Ur,Clean Catch No results entered r 2017 4:09pm Advance Directives Advance Directive Response Recorded Date/ Time Do we have a copy [place] [facility] No October 11, 2016 10:50am Does patient have an Advanced Directive? No March 13, 2010 12:10am Pt has a Living Will? No March 13, 2010 12:10am Pt has a Power of Display Coordinator? No Octo 2009 12:10am Chief Complaint and Reason for Visit Encounter Admit Date Chief Complaint Reason for V isit Departed Surgical Day Care March 15, 2018 7:36am High grade squamous intraepithelial lesion on cyto Hospital Discharge Instructions No known hospital discharge instructions. Hospital Discharge Medications Medication Dose Units Route Sig Qty Days Order Date Status Ins tructions Insulin Glargine 1 UNITS SUBCUTANEOUS ONCE August 042016 Discontinued Insulin Aspart U-100 5 UNITS SUBCUTANEOUS TID WITH MEALS February 15, 2017 Active Encounters Encounter Facility Location Admit/Visit Date Discharge/Departure Date Attending Provider Departed Surgical Day Care [facility] March 15, 2018 7:36am March 15, 2018 8:37am Steven Mejia Departed Referred [facility] Pathology February 15, 2018 7:34am February 15, 2018 7:35am Steven Mejia Departed Referred [facility] January 12, 2018 9:21pm January 12, 2018 9:22pm Huseyin Zazueta Departed Referred [facility] Primary [facility] June 22, 2017 7:24pm June 22, 2017 7:25pm Huseyin Zazueta Departed Referred [facility] June 15, 2017 7:46am June 15, 2017 7:47am Huseyin Zazueta Departed Referred [facility] May 10, 2017 9:46pm May 10, 2017 9:47pm Huseyin Zazueta Departed Referred [facility] May 10, 2017 8:39pm May 10, 2017 8:40pm Huseyin Zazueta Departed Referred [facility] May 10, 2017 7:44pm May 10, 2017 7:45pm CarlitaHuseyin Functional Status No known functional status. Immunizations No known immunizations. Payers Payer Name Policy Type Covered Democrat Covered Democrat Id Relationship Subscriber Subscriber Id [employer] Commercial MIRTA SOSA [id number] Self/Same as Patient MIRTA SOSA [id number] [employer] Commercial MIRTA SOSA [id number] Self/Same as Patient MIRTA SOSA [id number] [facility] [employer] (DO NOT USE) [employer] MIRTA SOSA [id number] Self/Same as Patient MIRTA SOSA [id number] [employer] MIRTA SOSA [id number] Self/Same as Patient MIRTA SOSA [id number] MEDICAID [place] Medicaid SELF PAY Personal Plan of Care No Known Plan of Care Information Social History Query Response Start Date Stop Date Smoking Status Current every day smoker Vital Signs Vital Reading Result Reference Range Collection Date/Time Height n/a Weight n/a Temperature 98.6 F 97.6 F-99.6 F March 15 18 7:48am Pulse 75 BPM 60-100 March 15 8 7:48am Respiration 20 RPM -March 15 7:48am Pulse Oximetry 99 % 95-100 March 15 018 7:48am Blood Pressure Systolic 117 100-140 Octo matthias 2017 7:48am Blood Pressure Diastolic 69 50-85 Oct shelby 2017 7:48am Body Mass Index n/a
--- OUTSIDE RECORDS SUMMARY | 2022-10-22 01:04 | XMS_ITS | Continuity of Care Document ---
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 Departed Referred [facility]Referred [facility] September 23, 2009 5:24pm September 23, 2009 Peter Zazueta MD Departed Referred [facility]Referred [facility] September 23, 2009 7:33pm September 23, 2009 Peter Zazueta MD Departed Referred [facility]Referred [facility] October 22, 2009 3:34pm October 22, 2009 Peter Zazueta MD Departed Clinical [facility] November 05, 2009 10:36am November 05, 2009 11:59pm Peter Zazueta MD Departed Emergency [facility] February 19, 2010 3:13pm February 19, 2010 5:31pm Wilmar Vargas MD Departed Emergency [facility] March 13, 2010 12:01am March 13, 2010 1:02am null Registered Clinical [facility] May 14, 2010 6:04am Peter Zazueta MD Departed Emergency [facility] May 16, 2010 6:54pm May 16, 2010 8:38pm null Registered Referred [facility] July 14, 2010 4:53pm JOSHUA Mobley Registered Referred [facility] Group[facility]Referred [facility] July 16, 2010 7:45pm JOSHUA Mobley Registered Referred [facility]Referred [facility] November 11, 2010 7:44pm JOSHUA Mobley Registered Referred [facility]Referred [facility] March 17, 2011 6:08pm MITALI Gu Registered Referred [facility] March 26, 2011 8:47am Peter Zazueta MD Registered Referred [facility] Group[facility]Referred [facility] June 30, 2011 7:46pm JOSHUA Alegria Registered Referred [facility]Referred [facility] December 24, 2011 5:57pm JOSHUA Valdez Registered Referred [facility]Referred [facility] December 30, 2011 6:28pm JOSHUA Valdez Registered Clinical [facility] January 25, 2012 9:18am JOSHUA Valdez Registered Referred [facility] April 05, 2012 8:23am Peter Zazueta MD Registered Referred [facility] April 05, 2012 6:23pm Peter Zazueta MD Registered Clinical [facility] Nuclear Medicine April 13, 2012 8:17am Peter Zazueta MD Registered Referred [facility] September 21, 2012 6:04pm JOSHUA Valdez Registered Referred [facility] January 17, 2013 6:58pm JOSHUA Valdez Registered Clinical [facility]Laboratory April 02, 2013 5:14pm Johnna Gregory MD Registered Referred [facility] April 25, 2014 7:11pm Peter Zazueta MD Registered Referred [facility] April 25, 2014 9:44pm Peter Zazueta MD Registered Referred [facility] September 13, 2014 6:01pm Nikko Youssef APRN Registered Referred [facility] April 28, 2015 6:49pm Peter Zazueta MD Registered Referred [facility] April 27, 2016 6:52pm Prabhakar Jimenez MD Registered Referred [facility] May 05, 2016 7:45pm Peter Zazueta MD Departed Physician/Provi shwetha Office Visit [facility] Urgent [facility] August 18, 2016 12:00am August 18, 2016 Conversion Medent Departed Emergency [facility] August 18, 2016 11:11am August 18, 2016 11:53am null Departed Physician/Provi shwetha Office Visit [facility] in Surgery February 01, 2017 12:00am February 01, 2017 Conversion Medent Departed Surgical Day Care [facility] February 15, 2017 7:24am February 15, 2017 10:16am Celeste Vlilafana MD Departed Referred [facility] May 10, 2017 7:44pm May 10, 2017 7:45pm Peter Zazueta MD Departed Referred [facility] May 10, 2017 8:39pm May 10, 2017 8:40pm Peter Zazueta MD Departed Referred [facility] May 10, 2017 9:46pm May 10, 2017 9:47pm Peter Zazueta MD Departed Referred [facility] June 15, 2017 7:46am June 15, 2017 7:47am Peter Zazueta MD Departed Referred [facility] June 22, 2017 7:24pm June 22, 2017 7:25pm Peter Zazueta MD Departed Referred [facility] January 12, 2018 9:21pm January 12, 2018 9:22pm Peter Zazueat MD Departed Physician/Provi shwetha Office Visit [facility] CLINICAL PROJECT ASSISTANT February 15, 2018 12:00am February 15, 2018 Conversion Medent Departed Referred [facility] February 15, 2018 7:34am February 15, 2018 7:35am Steven Mejia MD Departed Physician/Provi shwetha Office Visit [facility] CLINICAL PROJECT ASSISTANT March 01, 2018 12:00am March 01, 2018 Conversion Medent Departed Physician/Provi shwetah Office Visit [facility] CLINICAL PROJECT ASSISTANT March 15, 2018 12:00am March 15, 2018 Conversion Medent Departed Surgical Day Care [facility] March 15, 2018 7:36am March 15, 2018 8:37am Steven Mejia MD Departed Physician/Provi shwetha Office Visit [facility] CLINICAL PROJECT ASSISTANT March 22, 2018 12:00am March 22, 2018 Conversion Medent Departed Surgical Day Care [facility] March 22, 2018 7:29am March 22, 2018 8:41am Steven Mejia MD Departed Physician/Provi shwetha Office Visit [facility] CLINICAL PROJECT ASSISTANT April 05, 2018 12:00am April 05, 2018 Conversion Medent Departed Referred [facility] May 24, 2018 6:52pm May 24, 2018 6:53pm Peter Zazueta MD Departed Physician/Provi shwetha Office Visit [facility] CLINICAL PROJECT ASSISTANT April 10, 2019 12:00am April 10, 2019 Conversion Medent Departed Physician/Provi shwetha Office Visit [facility] CLINICAL PROJECT ASSISTANT April 10, 2019 8:05am April 10, 2019 8:32am Steven Mejia MD Assessments No Assessments Information Available Family History Relationship Condition Age at Onset Recorded Date/T helga Parent No current problems or disability Unknown Parent Malignant neoplasm of prostate Unknown Malignant neoplasm of breast Unknown Hypertension Unknown Not Specified Malignant neoplasm of colon Unknown Functional Status Observation Response Date Recorded Living Situation With Family February 15, 2017 7:44am Living Situation Home August 18 11:27am Goals No Goals Information Available Mental Status Observation Response Date Recorded Comprehension Ability Understands Concepts 2016 7:44am Speech Appropriate February 15, 2017 7:44am Medical Equipment No Medical Equipment Information available Insurance Providers Guarantor MIRTA SOSA Address [address] [facility] [address] [address] Contact Info. Home Phone: Payer Policy Id Coverage Id Subscriber's Name Subscriber Id Effective Date Expiration Date AETNA [id number] MIRTA SOSA [id number] [employer] [id number] MIRTA SOSA [id number] [facility] Start[employer] (DO NOT USE) [id number] MIRTA SOSA [id number] [employer] [id number] MIRTA SOSA [id number] [place] SELF PAY Self N/A Plan of Treatment Future Tests Future scheduled test information is unavailable Pending Tests Pending diagnostic test information is unavailable Future Visits Future appointment information is unavailable Referrals to Other Providers Reason for Referral Referral Start Date Provider Provider Contact Information Provider Address Of Choice Dentist Peter Zazueta MD Work Phone: [facility] Primary Care [address] [facility] [address] Future Procedures Future procedure information is unavailable Future Medications Future medication information is unavailable Patient Instructions Dental Abscess Social History Smoking Status Status Date of Observation Smokes tobacco daily (finding) March 062017 8:07am Observation Status Observation Response Date of Response Alcohol Use No February 15, 2017 7:44am alcohol intake frequency 0-2 drinks per day [facility] 2016 11:27am Substance/Street Drug Use No 2016 7:44am Smoking Status Current every day smoker March 22, 2018 8:07am Assigned Sex Female Vital Signs Vital Reading Result Reference Range Collection Date/Time Height 61 [in_i] August 18 7 11:00am Weight 57.60 kg August 18 7 11:00am Body Temperature 98.3 [degF] 97.6-99.6 August 18, 2016 11:00am Heart Rate 90 /min 60-100 August 18 11:00am Respiratory rate 16 /min -August 18, 2016 11:00am Oxygen saturation by Pulse oximetry 100 % 95-100 August 18, 2016 11: 00am BP Systolic 100 mm[Hg] 100-140 August 18 11:00am BP Diastolic 60 mm[Hg] 50-85 August 18 11:00am BMI (Body Mass Index) 24.0 kg/m2 August 18, 2016 11:00am Weight 57.60 kg August 18 11:16am Body Temperature 99 [degF] 97.6-99.6 August 18, 2016 11:16am Heart Rate 90 /min 60-100 August 18 11:16am Respiratory rate 16 /min -August 18, 2016 11:16am Oxygen saturation by Pulse oximetry 100 % 95-100 August 18, 2016 11: 16am BP Systolic 103 mm[Hg] 100-140 August 18 7 11:16am BP Diastolic 77 mm[Hg] 50-85 August 18 7 11:16am Height 61 [in_i] February 01 3:03pm Weight 55.79 kg February 01 3:03pm Heart Rate 68 /min 60-100 February 01 3:03pm BP Systolic 96 mm[Hg] 100-140 February 01 3:03pm BP Diastolic 68 mm[Hg] 50-85 February 01 3:03pm BMI (Body Mass Index) 23.2 kg/m2 February 01, 2017 3:03pm Heart Rate 71 /min 60-100 February 15, 2017 10:15am Respiratory rate 15 /min 05-29February 042016 10:15am Oxygen saturation by Pulse oximetry 97 % 95-100 February 15, 2017 10:15am BP Systolic 103 mm[Hg] 100-140 February 15, 2017 10:15am BP Diastolic 70 mm[Hg] 50-85 February 15, 2017 10:15am Height 61 [in_i] February 15, 2018 11:22am Weight 58.05 kg February 15, 2018 11:22am BP Systolic 116 mm[Hg] 100-140 February 15, 2018 11:22am BP Diastolic 70 mm[Hg] 50-85 February 15, 2018 11:22am BMI (Body Mass Index) 24.2 kg/m2 2017 11:22am Height 61 [in_i] March 01, 2018 3:39pm Weight 58.05 kg March 01, 2018 3:39pm BP Systolic 116 mm[Hg] 100-140 March 01, 2018 3:39pm BP Diastolic 70 mm[Hg] 50-85 March 01, 2018 3:39pm BMI (Body Mass Index) 24.2 kg/m2 2017 3:39pm Body Temperature 98.6 [degF] 97.6-99.6 March 7:48am Heart Rate 75 /min 60-100 March 15, 2 018 7:48am Respiratory rate 20 /min -March 7:48am Oxygen saturation by Pulse oximetry 99 % 95-100 March 15, 2018 7 :48am BP Systolic 117 mm[Hg] 100-140 March 15, 2 018 7:48am BP Diastolic 69 mm[Hg] 50-85 March 15, 2 018 7:48am Body Temperature 97.7 [degF] 97.6-99.6 March 8:07am Heart Rate 61 /min 60-100 March 22, 2 018 8:39am Respiratory rate 18 /min 12-24 March 8:39am Oxygen saturation by Pulse oximetry 99 % 95-100 March 22, 2018 8 :39am BP Systolic 115 mm[Hg] 100-140 March 22, 2 018 8:39am BP Diastolic 75 mm[Hg] 50-85 March 22, 2 018 8:39am Height 61.5 [in_i] April 10, 2 019 8:12am Weight 60.78 kg April 10, 2 019 8:12am Heart Rate 64 /min 60-100 November 5th, 2 019 8:12am Respiratory rate 14 /min 12-24 April 8:12am BP Systolic 110 mm[Hg] 100-140 April 10, 2 019 8:12am BP Diastolic 70 mm[Hg] 50-85 April 10, 2 019 8:12am BMI (Body Mass Index) 24.9 kg/m2 [facility] er 2018 8:12am
--- OUTSIDE RECORDS SUMMARY | 2022-10-22 01:04 | XMS_ITS | Continuity of Care Document ---
Author Name [facility] Address [address] [place] [address] [facility] Address [address] [place] [address] Care Team Providers Care Manager Of Human Resources Name Role Phone Steven Mejia Attending Physician PCP, of Choice Primary Care Physician Unavailab le Allergies, Adverse Reactions, Alerts Allergen Type Severity [...] Date Discharge/Departure Date Attending Provider Departed Referred [facility] Pathology July 26, 2019 12:08am July 26, 2019 12:09am Candace Colrey Registered Inpatient [facility] ALIGNING CHECKER July 11, 2019 1:37pm Laura Swift Departed Referred [facility] June 27, 2019 7:00pm June 27, 2019 7:01pm Huseyin Zazueta Departed Physician/Pr ovider Office Visit [facility] ALIGNING CHECKER June 12, 2019 3:28pm June 12, 2019 4:01pm Steven Mejia Departed Referred [facility] Pathology June 12, 2019 12:19am June 12, 2019 12:20am Steven Mejia Departed Referred [facility] Lab [facility] DIRECTOR OF LEARNING April 10, 2019 8:13am April 10, 2019 8:14am Steven Mejia Departed Physician/Pr ovider Office Visit [facility] ALIGNING CHECKER April 10, 2019 8:05am April 10, 2019 8:32am Steven Mejia Departed Physician/Pr ovider Office Visit [facility] ALIGNING CHECKER April 10, 2019 12:00am April 10, 2019 Medent, Conversion Functional Status No known functional status. Immunizations No known immunizations. Payers Payer Name Policy Type Covered Green Party Covered Green Party Id Relationship Subscriber Subscriber Id AETNA [employer] MIRTA SOSA [id number] Self/Same as Patient MIRTA SOSA [id number] [employer] MIRTA SOSA [id number] Self/Same as Patient MIRTA SOSA [id number] [facility] [employer] (DO NOT USE) Commercial MIRTA SOSA [id number] Self/Same as Patient MIRTA SOSA [id number] [employer] MIRTA SOSA [id number] Self/Same as Patient MIRTA SOSA [id number] [place] Medicaid SELF PAY Personal [...] 9 8:12am Respiration 14 RPM -April 10 9 8:12am Pulse Oximetry n/a Blood Pressure Systolic 110 100-140 duong2019 3:39pm Blood Pressure Diastolic 62 50-85 [facility] 2019 3:39pm Body Mass Index 25.0 June 12 3:39pm
--- OUTSIDE RECORDS SUMMARY | 2022-10-22 01:04 | XMS_ITS | Continuity of Care Document ---
Author Name [facility] Address [address] [place] [address] [facility] Address [address] [place] [address] Support Name Relationship Address Phone Huseyin Zazueta Primary Care Provider [facility] Primary Care [address] [place] [address] Benedicto Diane Attending Provider [facility] [address] [place] [address] Referral, Self Referring Provider Unknown [...] 20, 2020 1:36pm Large (+++) Urine Specific Sophia (Manual) August 20, 2020 1:36pm 1.025 POC [...] Attending Provider Departed Physician/Pr ovider Office Visit [facility] CONTINUOUS IMPROVEMENT SPECIALIST August 20, 2020 12:58pm August 20, 2020 1:28pm Benedicto Diane Departed Physician/Pr ovider Office Visit [facility] CONTINUOUS IMPROVEMENT SPECIALIST July 29, 2020 3:21pm July 29, 2020 [...] 2020 1:02pm Blood Pressure Systolic 108 100-140 [facility] 2020 1:02pm Blood Pressure Diastolic 60 50-85 [facility] 2020 1:02pm Body Mass Index 23.8 August 20 1:02pm
--- OUTSIDE RECORDS SUMMARY | 2022-10-22 01:04 | XMS_ITS | Continuity of Care Document ---
Author Name [facility] Address [address] [place] [address] Organization [facility] Address [address] [place] [address] Care Team Providers Care Human Services Manager Name Role Phone Huseyin Zazueta Primary Care Physician [phone] Steven Mejia Attending Physician Allergies, Adverse Reactions, Alerts No allergy information [...] have a copy on file here at [facility]? No October 11, 2016 10:50am Does patient have an Advanced Directive? No March 13, 2010 12:10am Pt has a Living Will? No March 13, 2010 12:10am Pt has a Power of Area Operations Director? No Octo 2009 12:10am Chief Complaint and [...] Date Attending Provider Departed Surgical Day Care [facility] Surgical Services March 15, 2018 7:36am March 15, 2018 8:37am Steven Mejia Departed Referred [facility] Pathology February 15, 2018 7:34am February 15, 2018 7:35am Steven Mejia Departed Referred [facility] Pathology January 12, 2018 9:21pm January 12, 2018 9:22pm Huseyin Zazueta Departed Referred [facility] Primary [facility] June 22, 2017 7:24pm June 22, 2017 7:25pm Huseyin Zazueta Departed Referred [facility] Pathology June 15, 2017 7:46am June 15, 2017 7:47am Huseyin Zazueta Departed Referred [facility] Pathology May 10, 2017 9:46pm May 10, 2017 9:47pm Huseyin Zazueta Departed Referred [facility] May 10, 2017 8:39pm May 10, 2017 8:40pm Huseyin Zazueta Departed Referred [facility] May 10, 2017 7:44pm May 10, 2017 7:45pm CarlitaHuseyin Functional Status No known functional status. Immunizations No known immunizations. Payers Payer Name Policy Type Covered Green Party Covered Green Party Id Relationship Subscriber Subscriber Id AETNA Commercial MIRTA SOSA [id number] Self/Same as Patient MIRTA SOSA [id number] [employer] Commercial MIRTA SOSA [id number] Self/Same as Patient MIRTA SOSA [id number] [facility] [employer] (DO NOT USE) [employer] MIRTA SOSA [id number] Self/Same as Patient MIRTA SSOA [id number] [employer] MIRTA SOSA [id number] Self/Same as Patient MIRTA SOSA [id number] [place] Medicaid SELF PAY Personal [...]
--- OUTSIDE RECORDS SUMMARY | 2022-10-22 01:04 | XMS_ITS | Continuity of Care Document ---
Author Name [facility] Address [address] [place] [address] Organization [facility] Address [address] [place] [address] Care Team Providers Care Store Stocker Name Role Phone Huseyin Zazueta Primary Care Physician [phone] Allergies, Adverse Reactions, Alerts Allergen Type Severity [...] developed and its performance characteristics determined by [facility] in a manner consistent with CLIA requirements. This test has not been cleared or approved by the U.S. Food and Drug Administration. Test Performed by: [facility] - [address] [address] Compensator Worker: Gigi Anders II, M.D., Ph.D. Advance Directives Advance Directive Response Recorded Date/ Time Do we have a copy on file here at [facility]? No October 11, 2016 10:50am Does patient have an Advanced Directive? No March 13, 2010 12:10am Pt has a Living Will? No March 13, 2010 12:10am Pt has a Power of Jewel Sawyer? No Octo 2009 12:10am Chief Complaint and [...] Date Discharge/Departure Date Attending Provider Departed Emergency [facility] Emergency Department August 18, 2016 11:11am August 18, 2016 11:53am Registered Referred [facility] Primary Care [facility] May 05, 2016 7:45pm Huseyin Zazueta Registered Referred [facility] April 27, 2016 6:52pm Prabhakar Jimenez Functional Status No known functional status. Immunizations No known immunizations. Payers Payer Name Policy Type Covered Green Party Covered Green Party Id Relationship Subscriber Subscriber Id [employer] Commercial FEP [employer] (DO NOT USE) Commercial MIRTA SOSA [id number] Self/Same as Patient MIRTA SOSA [id number] [place] Medicaid SELF PAY Personal [...] 7 11:16am Blood Pressure Systolic 103 100-140 [facility] 2016 11:16am Blood Pressure Diastolic 77 50-85 [facility] 2016 11:16am Body Mass Index n/a
--- OUTSIDE RECORDS SUMMARY | 2022-10-22 01:04 | XMS_ITS | Continuity of Care Document ---
Author Name Unknown Address [address] [place] [address] Phone [facility] Address [address] [place] [address] Phone Care Team Providers Care Brush Filler Hand Name Role Phone Huseyin Zazueta Primary Care Provider Steven Mejia Attending Provider [phone] Allergies, Adverse Reactions, Alerts Allergen Type Severity Reaction Last Updated Verified Status insulin detemir Allergy hives August 20, 2020 1:07pm Yes Active Medications Medication Status Dose Units Route Directions Qty Days St art Date End Date Instructions Levonorgestre l (Mirena) 20 mcg/24 hours (5 yrs) 52 mg intrauterine device Disconti nued 1 INHALER IY ONCE 2018 9:12am Febr2020 4:25pm Insulin Glargine (Lantus Solostar) 100 unit/mL (3 mL) Insulin Pen Disconti nued 1 UNITS SC ONCE August 18, 2016 11:15am August 18, 2016 11:24a m Insulin Aspart U-100 (Novolog U-100 Insulin Aspart) 100 unit/mL solution Active 0 .ROUTE .COMPLEX Februar y 2020 12:18pm INSULIN PUMP USES 19.7 UNITS/DAY Problems Active Problems Medical Problem Onset Date Status H/O bilateral salpingectomy Acti ve HGSIL (high grade squamous i ntraepithelial lesion) on Pap smear of cervix February 15, 2018 Active H/O: hysterectomy Active Advance Directives Advance Directive Response Recorded Date/ Time Does patient have an Advanced Directive? No March 13, 2010 12:10am Do we have a copy on file here at [facility]? No October 11, 2016 10:50am Pt has a Living Will? No March 12:10am Do we have a copy on file here at [facility]? No October 11, 2016 10:50am Pt has a Power of Grinder Outside Diameter? No 2009 12:10am Do we have a copy on file here at [facility]? 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 Z11.51 discussion consult Pre Op High grade squamous intraepithelial lesion on cyto Vaginal Complaints Post Operative Visit Reason for Visit HGSIL (high grade sq uamous intraepithelial lesion) on Pap smear of cervix HGSIL (high grade squamous intraepithelial lesion) on Pap smear of cervix HGSIL (high grade squamous intraepithelial lesion) on Pap smear of cervix HGSIL (high grade squamous intraepithelial lesion) on Pap smear of cervix HGSIL (high grade squamous intraepithelial lesion) on Pap smear of cervix Encounters Encounter Location(s) Arrival/Admit Date Discharge /Depart Date Provider(s) Departed Physician/Provi shwetha Office Visit [facility] CAN TESTER April 14, 2020 11:20am April 14, 2020 11:32am Steven Mejia MD Departed Referred [facility] OPTICAL INSTRUMENT REPAIRER April 14, 2020 11:21am April 14, 2020 11:22am Steven Mejia MD Departed Physician/Provi shwetha Office Visit [facility] CAN TESTER May 20, 2020 3:30pm May 20, 2020 3:38pm Steven Mejia MD Departed Physician/Provi shwetha Office Visit [facility] TE[facility] June 05, 2020 2:07pm June 05, 2020 2:34pm Red Diane MD Departed Physician/Provi shwetha Office Visit [facility] TE[facility] July 16, 2020 2:50pm July 16, 2020 3:10pm Red Diane MD Registered Outpatient [facility] TE[facility] July 21, 2020 7:31am July 21, 2020 5:25pm Red Diane MD Departed Physician/Provi shwetha Office Visit [facility] CAN TESTER July 29, 2020 4:21pm July 29, 2020 4:45pm Steven Mejia MD Departed Physician/Provi shwetha Office Visit [facility] CAN TESTER August 20, 2020 12:58pm August 20, 2020 1:28pm Red Diane MD Recent Diagnosis Onset Date HGSIL (high grade squamous i ntraepithelial lesion) on Pap smear of cervix February 15, 2018 HGSIL (high grade squamous i ntraepithelial lesion) on Pap smear of cervix February 15, 2018 HGSIL (high grade squamous i ntraepithelial lesion) on Pap smear of cervix February 15, 2018 HGSIL (high grade squamous i ntraepithelial lesion) on Pap smear of cervix February 15, 2018 HGSIL (high grade squamous i ntraepithelial lesion) on Pap smear of cervix February 15, 2018 Assessments Diagnosis Onset Date Resolution Status HGSIL (high grade squamous i ntraepithelial lesion) on Pap smear of cervix February 15, 2018 noneacti ve HGSIL (high grade squamous i ntraepithelial lesion) on Pap smear of cervix February 15, 2018 noneacti ve HGSIL (high grade squamous i ntraepithelial lesion) on Pap smear of cervix February 15, 2018 noneacti ve HGSIL (high grade squamous i ntraepithelial lesion) on Pap smear of cervix February 15, 2018 noneacti ve HGSIL (high grade squamous i ntraepithelial lesion) on Pap smear of cervix February 15, 2018 noneacti ve Family History Relationship Condition Age at Onset Recorded Date/T helga Parent No current problems or disability Unknown Parent Malignant neoplasm of prostate Unknown Malignant neoplasm of breast Unknown Hypertension Unknown Not Specified Malignant neoplasm of colon Unknown Functional Status No Functional Status information available Goals Acute Goals Goals: Mental Status No Mental Status Information Available Medical Equipment No Medical Equipment Information available Insurance Providers Guarantor MIRTA Burger SOSA Address [address] [facility] [address] Contact Info. 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 We have reviewed high-grade dysplasia, potential outcomes, association with HPV virus. Patient is confident she does not desire future . She is looking for more definitive therapy. We have reviewed laparoscopic hysterectomy procedure in detail. We reviewed risks and benefits as well as alternatives. Patient would like to proceed. Laparoscopic hysterectomy with bilateral salpingectomy with ovarian preservation will be scheduled. We will organize preop appointment, most likely telemedicine based on patient living 2 hours away. Plan to sign consent the day of surgery. 07/16/2020: As noted above, patient has persistent high-grade SHARMIN status post LEEP x2. We have reviewed treatment options, patient has elected to proceed with laparoscopic hysterectomy and bilateral salpingectomy. This procedure was scheduled previously. Today we reviewed the procedure in detail, risks and benefits. We will sign surgical consent the day of her procedure. Postoperative expectations reviewed. 39-year-old 4 para 4-0-0-4 with recurrent high-grade SHARMIN/DARIAN-3 despite 2 LEEP procedures. We have reviewed high-grade dysplasia, potential outcomes, association with HPV virus. Patient is confident she does not desire future . She is looking for more definitive therapy. We have reviewed laparoscopic hysterectomy procedure in detail. We reviewed risks and benefits as well as alternatives. Patient would like to proceed. Laparoscopic hysterectomy with bilateral salpingectomy with ovarian preservation will be scheduled. We will organize preop appointment, most likely telemedicine based on patient living 2 hours away. Plan to sign consent the day of surgery. I have discussed with her that the usual treatment is to repeat a colposcopy biopsy and if indicated LEEP procedure. At this time the patient is more interested in the final treatments for hysterectomy. I discussed with her the risk benefits possible complication and alternative treatment and will recommend a second opinion with my colleague Dr. Durham. Patient will be contacted to telephone call and treatment plan will be outlined from there. IUD in place. Normal pelvic exam. Pap test done and if abnormal will follow up for a discussion on a laparoscopy hysterectomy. If normal follow to repeat in one year. Normal post op exam. No active infection. She is reassured. Future Tests Future scheduled test information is unavailable Pending Tests Pending diagnostic test information is unavailable Future Visits Future appointment information is unavailable Referrals to Other Providers Reason for Referral Referral Start Date Provider Provider Contact Information Provider Address Your follow-up appointment is with Dr. Diane on . Red Diane MD Work Phone: [facility] [address] [place] [address] Future Procedures Future procedure information is unavailable Future Medications Future medication information is unavailable Patient Instructions Hysterectomy (DC) COVID 19 CDC D/C Instructions ([facility]) v.01/15/20 COVID 19 General Instructions- decrease the spread of coronavirus ([facility]) Social History Smoking Status Status Date of Observation Smokes tobacco daily (finding) August 1:07pm Observation Status Observation Response Date of Response Alcohol Use Yes July 08 12:00pm alcohol intake frequency 0-2 drinks per day Febr uary 2020 12:00pm Substance/Street Drug Use No Februa ry 2020 12:00pm Smoking Status Current every day smoker August 042020 1:07pm Assigned Sex Female Vital Signs Vital Reading Result Reference Range Collection Date/Time Height 61.5 [in_i] April 14 10:24am Weight 61.74 kg April 14 10:24am BP Systolic 112 mm[Hg] 100-140 April 14 10:24am BP Diastolic 62 mm[Hg] 50-85 April 14 020 10:24am BMI (Body Mass Index) 25.2 kg/m2 [facility] 2019 10:24am Height 62 [in_i] July 07 11:20am Weight 58.96 kg July 07 021 11:20am Body Temperature 97.5 [degF] 97.6-99.6 July 212020 11:01am Heart Rate 58 /min 60-100 July 21, 2020 2:10pm Respiratory rate 16 /min 12-24 July 212020 2:10pm Oxygen saturation by Pulse oximetry 94 % 95-100 July 21, 2020 2:31pm BP Systolic 102 mm[Hg] 100-140 July 21, 2020 2:10pm BP Diastolic 56 mm[Hg] 50-85 July 21, 2020 2:10pm Height 62 [in_i] July 29, 2020 3:29pm Weight 58.96 kg July 29, 2020 3:29pm BP Systolic 114 mm[Hg] 100-140 July 29, 2020 3:29pm BP Diastolic 66 mm[Hg] 50-85 July 29, 2020 3:29pm BMI (Body Mass Index) 23.8 kg/m2 2020 3:29pm Height 62 [in_i] August 20 1:02pm Weight 59.02 kg August 20 1:02pm Heart Rate 94 /min 60-100 August 20 1:02pm Respiratory rate 16 /min -August 20, 2020 1:02pm BP Systolic 108 mm[Hg] 100-140 August 20 1:02pm BP Diastolic 60 mm[Hg] 50-85 August 20 1:02pm BMI (Body Mass Index) 23.8 kg/m2 August 20, 2020 1:02pm
--- OUTSIDE RECORDS SUMMARY | 2022-10-22 01:04 | XMS_ITS | Continuity of Care Document ---
Author Name [facility] Address [address] [place] [address] Organization [facility] Address [address] [place] [address] Care Team Providers Care Precinct Commanding Officer Name Role Phone Huseyin Zazueta Primary Care [...] Procedure Date Status Provider(s) LEEP procedure March 22, 2018 completed Steven Mejia LEEP procedure March 15, 2018 completed Steven [...] have a copy on file here at [facility]? No October 11, 2016 10:50am Does patient have an Advanced Directive? No March 13, 2010 12:10am Pt has a Living Will? No March 13, 2010 12:10am Pt has a Power of Clinical Nursing Coordinator? No Octo 2009 12:10am Chief Complaint and Reason for Visit Encounter Admit Date Chief Complaint Reason for V isit Departed Surgical Day Care March 22, 2018 7:29am High grade squamous intraepithelial lesion on cyto [...] Date Attending Provider Departed Surgical Day Care [facility] Surgical Services March 22, 2018 7:29am March 22, 2018 8:41am Steven Mejia Departed Surgical Day Care [facility] March 15, 2018 7:36am March 15, 2018 8:37am Steven Mejia Departed Referred [facility] Pathology February 15, 2018 7:34am February 15, 2018 7:35am Steven Mejia Departed Referred [facility] January 12, 2018 9:21pm January 12, 2018 9:22pm CarlitaBeckay Departed Referred [facility] June 22, 2017 7:24pm June 22, 2017 7:25pm Huseyin Zazueta Departed Referred [facility] June 15, 2017 7:46am June 15, 2017 7:47am Huseyin Zazueta Departed Referred [facility] May 10, 2017 9:46pm May 10, 2017 9:47pm Huseyin Zazueta Departed Referred [facility] May 10, 2017 8:39pm May 10, 2017 8:40pm Huseyin Zazueta Departed Referred [facility] May 10, 2017 7:44pm May 10, 2017 7:45pm Huseyin Zazueta Functional Status No known functional status. Immunizations No known immunizations. Payers Payer Name Policy Type Covered Alliance Party Covered Alliance Party Id Relationship Subscriber Subscriber Id AETNA Commercial MIRTA SOSA [id number] Self/Same as Patient MIRTA SOSA [id number] [employer] EM[employer] MIRTA SOSA [id number] Self/Same as Patient MIRTA SOSA [id number] [facility] [employer] (DO NOT USE) [employer] MIRTA SOSA [id number] Self/Same as Patient MIRTA SOSA [id number] [employer] MIRTA SOSA [id number] Self/Same as Patient MIRTA SOSA [id number] [place] Medicaid SELF PAY Personal [...]
--- OUTSIDE RECORDS SUMMARY | 2022-10-22 01:04 | XMS_ITS | Continuity of Care Document ---
Author Name [facility] Address [address] [place] [address] [address] [facility] Address [address] [place] [address] Care Team Providers Care Buckler And Lacer Name Role Phone Huseyin Zazueta Primary Care Physician [phone] Celeste Villafana Attending Physician [phone] Allergies, Adverse Reactions, Alerts Allergen Type Severity Reaction Last Updated Verified Status No Known Allergies Allergy February 15, 2017 Y Active Medications Active Medications Medication Dose Units Route Sig Start Date Status Insulin Glargine [Lantus Solostar] 30 unit SUB-Q EVERY MORNING August 18, 2016 Active Insulin Aspart [Novolog Flexpen] 5 units Sub-Q TID WITH MEALS February 15, 2017 Ac tive Discontinued Medications Medication Dose Units Route Sig Start Date Discontinu ed Date Status Insulin Glargine [Lantus Solostar] 1 unit SUB-Q ONCE August 18, 2016 August 18, 2016 Discontinued Problem List No problem information available. Procedures Procedure Date Status Provider(s) Colonoscopy, with polypectomy and biopsy February 15, 2017 completed Faviola Mccarthy Reason for Referral Reason for Referral Date [...] developed and its performance characteristics determined by [facility] in a manner consistent with CLIA requirements. This test has not been cleared or approved by the U.S. Food and Drug Administration. Test Performed by: [facility] - [address] [address] Cemetery Vault Installer: Gigi Anders II, M.D., Ph.D. Advance Directives Advance Directive Response Recorded Date/ Time Do we have a copy on file here at [facility]? No October 11, 2016 10:50am Does patient have an Advanced Directive? No March 13, 2010 12:10am Pt has a Living Will? No March 13, 2010 12:10am Pt has a Power of Delivery Sales Worker? No Octo 2009 12:10am Chief Complaint and Reason for Visit Encounter Admit Date Chief Complaint Reason for V isit Departed Surgical Day Care February 15, 2017 7:24am F m HX [facility] Discharge Instructions No known hospital discharge instructions. Hospital Discharge Medications Medication Dose Units Route Sig Qty Days Order Date Status Ins tructions Insulin Glargine 30 unit SUB-Q EVERY MORNING August 18, 2016 Active Insulin Glargine 1 unit SUB-Q ONCE August 18, 2016 Discontinued Insulin Aspart 5 units Sub-Q TID WITH MEALS February 15, 2017 Active Encounters Encounter Facility Location Admit/Visit Date Discharge/Departure Date Attending Provider Departed Surgical Day Care [facility] Surgical Services February 15, 2017 7:24am February 15, 2017 10:16am Celeste Villafana Departed Emergency [facility] Emergency Department August 18, 2016 11:11am August 18, 2016 11:53am Registered Referred [facility] Primary Care [facility] May 05, 2016 7:45pm Huseyin Zazueta Registered Referred [facility] Care [facility] April 27, 2016 6:52pm Prabhakar Jimenez Functional Status No known functional status. Immunizations No known immunizations. Payers Payer Name Policy Type Covered Democrat Covered Democrat Id Relationship Subscriber Subscriber Id [employer] Commercial MIRTA SOSA [id number] Self/Same as Patient MIRTA SOSA [id number] [facility] [employer] (DO NOT USE) Commercial MIRTA SOSA [id number] Self/Same as Patient MIRTA SOSA [id number] [place] Medicaid SELF PAY Personal [...] 2017 10:15am Blood Pressure Systolic 103 100-140 Feb [facility]2016 10:15am Blood Pressure Diastolic 70 50-85 Sep [facility]2016 10:15am Body Mass Index n/a
--- OUTSIDE RECORDS SUMMARY | 2022-10-22 01:04 | XMS_ITS | Continuity of Care Document ---
Author Name [facility] Address [address] [place] [address] Organization [facility] Address [address] [place] [address] Care Team Providers Care Patient Services Clerk Name Role Phone Huseyin Zazueta Primary Care Physician Huseyin Zazueta Attending Physician [phone] Allergies, Adverse Reactions, Alerts No known [...] have a copy on file here at [facility]? No October 11, 2016 10:50am Does patient have an Advanced Directive? No March 13, 2010 12:10am Pt has a Living Will? No March 13, 2010 12:10am Pt has a Power of Insurance Inspector? No Octo 2009 12:10am Hospital Discharge Instructions [...] Date Discharge/Departure Date Attending Provider Departed Referred [facility] June 22, 2017 7:24pm June 22, 2017 7:25pm Huseyin Zazueta Departed Referred [facility] Pathology June 15, 2017 7:46am June 15, 2017 7:47am Huseyin Zazueta Departed Referred [facility] May 10, 2017 9:46pm May 10, 2017 9:47pm Huseyin Zazueta Departed Referred [facility] May 10, 2017 8:39pm May 10, 2017 8:40pm Huseyin Zazueta Departed Referred [facility] May 10, 2017 [...] Subscriber Subscriber Id AETNA Commercial MIRTA SOSA [id number] Self/Same as Patient MIRTA SOSA [id number] [employer] Commercial MIRTA SOSA [id number] Self/Same as Patient MIRTA SOSA [id number] [facility] [employer] (DO NOT USE) Commercial MIRTA SOSA [id number] Self/Same as Patient MIRTA SOSA [id number] [place] Medicaid SELF PAY Personal [...] 10:15am Blood Pressure Diastolic 70 50-85 Sep 2016 10:15am Body Mass Index n/a
--- OUTSIDE RECORDS SUMMARY | 2022-10-22 01:04 | XMS_ITS | Continuity of Care Document ---
Author Name Unknown Address [address] [place] [address] [facility] Address [address] [place] [address] Phone Care Team Providers Care Printer'S Assistant Name Role Phone Huseyin aZzueta Primary Care Provider [phone] Steven Mejia Attending Provider [phone] Allergies, Adverse Reactions, Alerts Allergen Type Severity Reaction Last Updated Verified Status insulin detemir Allergy hives June 12, 2019 Yes Active Medications Medication Status Dose Units Route Sig Qty Days Start Date End Date Instructions Levonorgestrel Active 1 INHALER ONCE N ovember 2018 8:12am Insulin Glargine Discontinu ed 1 UNITS ONCE August 18, 2016 11:15am August 18, 2016 11:24a m Insulin Aspart U-100 Active 5 UNITS TID WITH MEALS 2016 7:34am Problems Active Problems Medical Problem Onset Date Status HGSIL (high grade squamous i ntraepithelial lesion) on Pap smear of cervix February 15, 2018 Active Advance Directives Advance Directive Response Recorded Date/ Time Does patient have an Advanced Directive? No March 13, 2010 12:10am Do we have a copy on file here at [place]? No October 11, 2016 10:50am Pt has a Living Will? No March 12:10am Do we have a copy on file here at [place]? No October 11, 2016 10:50am Pt has a Power of Stitch Bonding Machine Tender Helper? No 2009 12:10am Do we have a copy on file here at [place]? No October 11, 2016 10:50am Chief Complaint and Reason for Visit Chief Complaint COBBLER SOLE annual exam Colposcopy Encounters Encounter Location(s) Arrival/Admit Date Discharge/Depart Date Provider(s) [facility]ed [facility]Prov [facility] April 10, 2019 12:00am April 10, 2019 Conversion Medent Departed Physician/Prov ider [facility] April 10, 2019 8:05am April 10, 2019 8:32am Steven Mejia MD Departed Referred [facility] June 12, 2019 12:19am June 12, 2019 12:20am Steven Mejia MD Departed Physician/Prov ider [facility] June 12, 2019 3:28pm June 12, 2019 4:01pm Steven Mejia MD Assessments No Assessments Information Available Family History Relationship Condition Age at Onset Recorded Date/T helga Parent No current problems or disability Unknown Parent Malignant neoplasm of prostate Unknown Malignant neoplasm of breast Unknown Hypertension Unknown Not Specified Malignant neoplasm of colon Unknown Functional Status No Functional Status information available Goals Goals may be documented in an alternate section. Mental Status No Mental Status Information Available Medical Equipment No Medical Equipment Information available Insurance Providers Guarantor MIRTA SOSA Address [address] [facility] [address] Contact Info. Home Phone: Payer Policy Id Coverage Id Subscriber's Name Subscriber Id Effective Date Expiration Date AETNA [id number] MIRTA SOSA [id number] [employer] [id number] MIRTA SOSA [id number] [facility] [employer] (DO NOT USE) [id number] MIRTA SOSA [id number] [employer] [id number] MIRTA SOSA [id number] [place] SELF PAY Self N/A Plan of Treatment Normal exam today. Pap test done. Follow in one year if normal. Discussed her IUD removal and possible tubal ligation. HGSIL. Follow for results and treatment plan. Future Tests Future scheduled test information is unavailable Pending Tests Pending diagnostic test information is unavailable Future Visits Future appointment information is unavailable Referrals to Other Providers Reason for Referral Referral Start Date Provider Provider Contact Information Provider Address Of Choice Dentist Huseyin Zazueta MD Work Phone: [facility] [address] [facility] [address] Future Procedures Future procedure information is unavailable Future Medications Future medication information is unavailable Patient Instructions Dental Abscess Social History Smoking Status Status Date of Observation Smokes tobacco daily (finding) June 122019 4:25pm Observation Status Observation Response Date of Response Alcohol Use No February 15, 2017 7:44am alcohol intake frequency 0-2 drinks per day [facility] 2016 11:27am Substance/Street Drug Use No 2016 7:44am Smoking Status Current every day smoker June 12, 2019 4:25pm Assigned Sex Female Vital Signs Vital Reading Result Reference Range Collection Date/Time Height 61.5 [in_i] April 10, 2 019 8:12am Weight 60.78 kg April 10, 019 8:12am Heart Rate 64 /min 60-100 April 10, 2 019 8:12am Respiratory rate 14 /min 12-24 April 8:12am BP Systolic 110 mm[Hg] 100-140 April 10, 2 019 8:12am BP Diastolic 70 mm[Hg] 50-85 April 10, 2 019 8:12am BMI (Body Mass Index) 24.9 kg/m2 [facility] 2018 8:12am Height 61.5 [in_i] June 12 3:39pm Weight 61.23 kg June 12 3:39pm BP Systolic 110 mm[Hg] 100-140 June 12 3:39pm BP Diastolic 62 mm[Hg] 50-85 June 12 3:39pm BMI (Body Mass Index) 25.0 kg/m2 Junuar y 2019 3:39pm
--- OUTSIDE RECORDS SUMMARY | 2022-10-22 01:04 | XMS_ITS | Continuity of Care Document ---
Author Name Unknown Address [address] [place] [address] Phone [facility] Address [address] [place] [address] Phone Care Team Providers Care Electric Pile Driver Operator Name Role Phone Huseyin Zazueta Primary Care Provider Steven Mejia Attending Provider Huseyin Zazueta Attending Provider Candace Corley Attending Provider [phone] Allergies, Adverse Reactions, Alerts Allergen Type Severity Reaction Last Updated Verified Status insulin detemir Allergy hives April 14, 2020 10:24 am Yes Active Medications Medication Status Dose Units Route Directions Qty Days St art Date End Date Instructions Levonorgestre l (Mirena) 20 mcg/24 hours (5 yrs) 52 mg intrauterine device Active 1 INHALER IY ONCE Novem r 2018 8:12am Insulin Glargine (Lantus Solostar) 100 unit/mL (3 mL) Insulin Pen Disconti nued 1 UNITS SC ONCE August 18, 2016 10:15am August 18, 2016 10:24a m Insulin Aspart U-100 (Novolog Flexpen) 100 unit/mL Insulin Pen Active 5 UNITS SC TID WITH MEALS Sept2016 6:34am Atorvastatin Active 40 MG PO BEDTIME Aug 12:59pm Problems Active Problems Medical Problem Onset Date Status HGSIL (high grade squamous i ntraepithelial lesion) on Pap smear of cervix February 15, 2018 Active Relevant Diagnostic Tests and/or Laboratory Data Laboratory Results Test Date/Time Result Interpretation Reference Range Result Comment Performing Site Thyroid Stimulating Hormone (TSH) June 27, 2019 2:28pm 1.01 mlU/L 0.47-4.68 The results of this assay can be falsely decreased in patients who consume Biotin. MAIN LAB, [address] [facility] [address] Advance Directives Advance Directive Response Recorded Date/ Time Does patient have an Advanced Directive? No March 12, 2010 11:10pm Do we have a copy on file here at [facility]? No October 11, 2016 9:50am Pt has a Living Will? No March 11:10pm Do we have a copy on file here at [facility]? No October 11, 2016 9:50am Pt has a Power of Heel Shaver? No 2009 11:10pm Do we have a copy on file here at [facility]? 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 STATION DETECTIVE June 12, 2019 3:28pm June 12, 2019 4:01pm Steven Mejia MD Departed Referred -[facility] June 27, 2019 7:00pm June 27, 2019 7:01pm Huseyin Zazueta MD Registered Outpatient -[facility] STATION DETECTIVE July 11, 2019 1:37pm Laura Swift RN Departed Referred -Pathology July 26, 2019 12:08am July 26, 2019 12:09am Candace Corley MD Registered Outpatient -[facility] STATION DETECTIVE August 07, 2019 12:46pm August 07, 2019 1:32pm Steven Mejia MD Departed Physician/Provi shwetha Office Visit -[facility] STATION DETECTIVE April 14, 2020 10:20am April 14, 2020 10:32am Steven Mejia MD Assessments No Assessments Information [...] available Insurance Providers Guarantor MIRTA SOSA Address [address] [facility] [address] Contact Info. Home Phone: Payer Policy Id Coverage Id Subscriber's Name Subscriber Id Effective Date Expiration Date AETNA [id number] MIRTA SOSA [id number] [employer] FED[employer]AL EM[employer] [id number] MIRTA SOSA [id number] [facility] Nexvet (DO NOT USE) [id number] MIRTA SOSA [id number] MAIL HANDLERS [id number] MIRTA SOSA [id number] [place] SELF PAY Self N/A Plan of Treatment HGSIL. Follow for results and treatment plan. Future Tests Future scheduled test information is unavailable Pending Tests Pending diagnostic test information is unavailable Future Visits Future appointment information is unavailable Referrals to Other Providers Referral information is unavailable Future Procedures Future procedure information is unavailable Future Medications Future medication information is unavailable Patient Instructions Patient instructions are unavailable Social History Smoking Status Status Date of Observation Smokes tobacco daily (finding) August 1:25pm Observation Status Observation Response Date of Response Alcohol Use No August 12, 2019 9:34am alcohol intake frequency 0-2 drinks per day 2019 9:34am Substance/Street Drug Use No August 12, 2019 9:34am Smoking Status Current every day smoker August 052019 12:25pm Assigned Sex Female Vital Signs Vital Reading Result Reference Range Collection Date/Time Height 61.5 [in_i] June 12 3:39pm Weight 61.23 kg June 12 3:39pm BP Systolic 110 mm[Hg] 100-140 June 12 3:39pm BP Diastolic 62 mm[Hg] 50-85 June 12 3:39pm BMI (Body Mass Index) 25.0 kg/m2 Shankarr y 2019 3:39pm Body Temperature 98.2 [degF] 97.6-99.6 August 07, 2019 12:57pm Heart Rate 70 /min 60-100 August 07, 2019 1:25pm Respiratory rate 18 /min 12-August 07, 2019 1:25pm Oxygen saturation by Pulse oximetry 98 % 95-100 August 07, 2019 1:25 pm BP Systolic 114 mm[Hg] 100-140 August 07, 2019 1:25pm BP Diastolic 76 mm[Hg] 50-85 August 07, 2019 1:25pm Height 61.5 [in_i] April 14, 2 020 10:24am Weight 61.74 kg April 14, 2 020 10:24am BP Systolic 112 mm[Hg] 100-140 April 14, 2 020 10:24am BP Diastolic 62 mm[Hg] 50-85 April 14, 2 020 10:24am BMI (Body Mass Index) 25.2 kg/m2 [facility] 2019 10:24am
--- OUTSIDE RECORDS SUMMARY | 2022-10-22 01:04 | XMS_ITS | Continuity of Care Document ---
Author Name Unknown Address [address] [place] [address] Phone [facility] Address [address] [place] [address] Phone Care Team Providers Care Sheltered Workshop Worker Name Role Phone Huseyin Zazueta Primary Care Provider Candace Corley Attending Provider Steven Mejia Attending Provider Allergies, Adverse Reactions, Alerts Allergen Type Severity Reaction Last Updated Verified Status insulin detemir Allergy hives July 07, 2020 11:18 am Yes Active Medications Medication Status Dose Units Route Directions Qty Days St art Date End Date Instructions Levonorgestr el (Mirena) 20 mcg/24 hours (5 yrs) 52 mg intrauterine device Active 1 INHALER IY ONCE r 2018 8:12am Insulin Glargine (Lantus Solostar) 100 unit/mL (3 mL) Insulin Pen Disconti nued 1 UNITS SC ONCE August 18, 2016 10:15am August 18, 2016 10:24a m Insulin Aspart U-100 (Novolog U-100 Insulin Aspart) 100 unit/mL solution Active SOLUTIO N Februar y 2020 11:18am Problems Active Problems Medical Problem Onset Date Status HGSIL (high grade squamous i ntraepithelial lesion) on Pap smear of cervix February 15, 2018 Active Advance Directives Advance Directive Response Recorded Date/ Time Does patient have an Advanced Directive? No March 12, 2010 11:10pm Do we have a copy on file here at [facility]? No October 11, 2016 9:50am Pt has a Living Will? No March 11:10pm Do we have a copy on file here at [facility]? No October 11, 2016 9:50am Pt has a Power of Manager Talent Management? No 2009 11:10pm Do we have a copy on file here at [facility]? 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 Z11.51 discussion consult Pre Op Reason for Visit HGSIL (high grade sq uamous intraepithelial lesion) on Pap smear of cervix HGSIL (high grade squamous intraepithelial lesion) on Pap smear of cervix HGSIL (high grade squamous intraepithelial lesion) on Pap smear of cervix Encounters Encounter Location(s) Arrival/Admit Date Discharge /Depart Date Provider(s) Departed Referred [facility] July 26, 2019 12:08am July 26, 2019 12:09am Candace Corley MD Registered Outpatient [facility] CELLOPHANE PRESS OPERATOR August 07, 2019 12:46pm August 07, 2019 1:32pm Steven Mejia MD Departed Physician/Provi shwetha Office Visit [facility] CELLOPHANE PRESS OPERATOR April 14, 2020 10:20am April 14, 2020 10:32am Steven Mejia MD Departed Referred [facility] VIDEO GAME CREATOR April 14, 2020 10:21am April 14, 2020 10:22am Steven Mejia MD Departed Physician/Provi shwetha Office Visit [facility] CELLOPHANE PRESS OPERATOR May 20, 2020 2:30pm May 20, 2020 2:38pm Steven Mejia MD Departed Physician/Provi shwetha Office Visit [facility] CELLOPHANE PRESS OPERATOR June 05, 2020 1:07pm June 05, 2020 1:34pm Red Diane MD Departed Physician/Provi shwetha Office Visit [facility] CELLOPHANE PRESS OPERATOR July 16, 2020 1:50pm July 16, 2020 2:10pm Red Diane MD Recent Diagnosis Onset Date [...] available Insurance Providers Guarantor MIRTA SOSA Address [address] [place] [address] Contact Info. Home Phone: Payer Policy Id Coverage Id Subscriber's Name Subscriber Id Effective Date Expiration Date AETNA [id number] MIRTA SOSA [id number] [employer] [id number] MIRTA SOSA [id number] [facility] Sur[employer] (DO NOT USE) [id number] MIRTA SOSA [id number] MAIL HANDLERS [id number] MIRTA SOSA [id number] [place] SELF PAY Self N/A Plan of Treatment 39-year-old 4 para 4-0-0-4 with recurrent high-grade [...] normal follow to repeat in one year. Future Tests Future scheduled test information is unavailable Pending Tests Pending diagnostic test information is unavailable Future Visits Future appointment information is unavailable Referrals to Other Providers Referral information is unavailable Future Procedures Future procedure information is unavailable Future Medications Future medication information is unavailable Patient Instructions Patient instructions are unavailable Social History Smoking Status Status Date of Observation Smokes tobacco daily (finding) July 08, 2020 11:00am Observation Status Observation Response Date of Response Alcohol Use Yes July 08 11:00am alcohol intake frequency 0-2 drinks per day Febr uary 2020 11:00am Substance/Street Drug Use No Februa ry 2020 11:00am Smoking Status Current every day smoker Februar y 2020 11:00am Assigned Sex Female Vital Signs Vital Reading Result Reference Range Collection Date/Time Body Temperature 98.2 [degF] 97.6-99.6 August 07, 2019 12:57pm Heart Rate 70 /min 60-100 August 07, 2019 1:25pm Respiratory rate 18 /min 12-24 August 07, 2019 1:25pm Oxygen saturation by Pulse oximetry 98 % 95-100 August 07, 2019 1:25 pm BP Systolic 114 mm[Hg] 100-140 August 07, 2019 1:25pm BP Diastolic 76 mm[Hg] 50-85 August 07, 2019 1:25pm Height 61.5 [in_i] April 14, 2 020 10:24am Weight 61.74 kg April 14 020 10:24am BP Systolic 112 mm[Hg] 100-140 April 14, 2 020 10:24am BP Diastolic 62 mm[Hg] 50-85 April 14, 020 10:24am BMI (Body Mass Index) 25.2 kg/m2 [facility] 2019 10:24am
--- OUTSIDE RECORDS SUMMARY | 2022-10-22 01:04 | XMS_ITS | Continuity of Care Document ---
Author Name [facility] Address [address] [place] [address] Organization [facility] Address [address] [place] [address] Care Team Providers Care Residential Energy Auditor Name Role Phone Huseyin Zazueta Primary Care Physician [phone] Allergies, Adverse Reactions, Alerts Allergen Type Severity [...] developed and its performance characteristics determined by [facility] in a manner consistent with CLIA requirements. This test has not been cleared or approved by the U.S. Food and Drug Administration. Test Performed by: [facility] - [address] [address] Control Director: Gigi Anders II, M.D., Ph.D. Advance Directives Advance Directive Response Recorded Date/ Time Do we have a copy on file here at [facility]? No October 11, 2016 10:50am Does patient have an Advanced Directive? No March 13, 2010 12:10am Pt has a Living Will? No March 13, 2010 12:10am Pt has a Power of Carousel Attendant? No Octo 2009 12:10am Chief Complaint and [...] Date Discharge/Departure Date Attending Provider Departed Emergency [facility] Emergency Department August 18, 2016 11:11am August 18, 2016 11:53am Registered Referred [facility] May 05, 2016 7:45pm Huseyin Zazueta Registered Referred [facility] April 27, 2016 6:52pm Prabhakar Jimenez Functional Status No known functional status. Immunizations No known immunizations. Payers Payer Name Policy Type Covered Democrat Covered Democrat Id Relationship Subscriber Subscriber Id FEP BLUE CROSS (DO NOT USE) Commercial MIRTA SOSA [id number] Self/Same as Patient MIRTA SOSA [id number] SELF PAY Personal Plan of Care No [...] August 18, 2016 11:16am Respiration 16 RPM -August 18, 2016 11:16am Pulse Oximetry 100 % 95-100 August 18 7 11:16am Blood Pressure Systolic 103 100-140 [facility] 2016 11:16am Blood Pressure Diastolic 77 50-85 [facility] 2016 11:16am Body Mass Index n/a
--- OUTSIDE RECORDS SUMMARY | 2022-10-22 01:04 | XMS_ITS | Continuity of Care Document ---
Author Name Unknown Address [address] [place] [address] Phone [facility] Address [address] [place] [address] Phone Care Team Providers Care Transit Man Name Role Phone Huseyin Zazueta Primary Care Provider Steven Mejia Attending Provider Huseyin Zazueta Attending Provider [phone] Candace Corley Attending Provider Allergies, Adverse Reactions, Alerts Allergen [...] patients who consume Biotin. MAIN LAB, [address] [facility] [address] Advance Directives Advance Directive Response Recorded Date/ Time Does patient have an Advanced Directive? No March 12, 2010 11:10pm Do we have a copy on file here at [facility]? No October 11, 2016 9:50am Pt has a Living Will? No March 11:10pm Do we have a copy on file here at [facility]? No October 11, 2016 9:50am Pt has a Power of Nickel Plant Operator? No 2009 11:10pm Do we have a copy on file here at [facility]? 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 TORCH OPERATOR annual exam Reason for Visit HGSIL (high grade sq uamous intraepithelial lesion) on Pap smear of cervix Encounters Encounter Location(s) Arrival/Admit Date Discharge /Depart Date Provider(s) Departed Referred [facility] June 12, 2019 12:19am June 12, 2019 12:20am Steven Mejia MD Departed Physician/Provi shwetha Office Visit [facility] FORESTRY BIOLOGY SPECIALIST June 12, 2019 3:28pm June 12, 2019 4:01pm Steven Mejia MD Departed Referred [facility] June 27, 2019 7:00pm June 27, 2019 7:01pm Huseyin Zazueta MD [facility] FORESTRY BIOLOGY SPECIALIST July 11, 2019 1:37pm Laura Swift RN Departed Referred [facility] July 26, 2019 12:08am July 26, 2019 12:09am Candace Corley MD [facility] FORESTRY BIOLOGY SPECIALIST August 07, 2019 12:46pm August 07, 2019 1:32pm Steven Mejia MD Departed Physician/Provi shwetha [facility] FORESTRY BIOLOGY SPECIALIST April 14, 2020 10:20am April 14, 2020 10:32am Steven Mejia MD Departed Referred [facility] ASPHALT PAVER OPERATOR April 14, 2020 10:21am April 14, 2020 10:22am Steven Mejia MD Recent Diagnosis Onset Date HGSIL (high [...] available Insurance Providers Guarantor MIRTA SOSA Address [address] [place] [address] Contact Info. Home Phone: Payer Policy Id Coverage Id Subscriber's Name Subscriber Id Effective Date Expiration Date AETNA [id number] MIRTA SOSA [id number] [employer] FED[employer]AL EMPLOYEES [id number] MIRTA SOSA [id number] [facility] Ladies Who Launch (DO NOT USE) [id number] MIRTA SOSA [id number] MAIL HANDLERS [id number] MIRTA SOSA [id number] [place] SELF PAY Self N/A Plan of Treatment IUD in place. Normal pelvic exam. Pap test done and if abnormal will follow up for a discussion on a laparoscopy hysterectomy. If normal follow to repeat in one year. HGSIL. Follow for results and treatment plan. [...] Date of Observation Smokes tobacco daily (finding) April 14, 2020 10:34am Observation Status Observation Response Date of Response Alcohol Use No August 12, 2019 9:34am alcohol intake frequency 0-2 drinks per day [place] 2019 9:34am Substance/Street Drug Use No August 12, 2019 9:34am Smoking Status Current every day smoker [facility] 2019 10:34am Assigned Sex Female Vital Signs Vital Reading Result Reference Range Collection Date/Time Height 61.5 [in_i] June 12 3:39pm Weight 61.23 kg June 12 3:39pm BP Systolic 110 mm[Hg] 100-140 June 12 3:39pm BP Diastolic 62 mm[Hg] 50-85 June 12 3:39pm BMI (Body Mass Index) 25.0 kg/m2 Jeff y 2019 3:39pm Body Temperature 98.2 [degF] [...] 07, 2019 1:25pm Height 61.5 [in_i] April 14 10:24am Weight 61.74 kg April 14 020 10:24am BP Systolic 112 mm[Hg] 100-140 April 14 020 10:24am BP Diastolic 62 mm[Hg] 50-85 April 14 020 10:24am BMI (Body Mass Index) 25.2 kg/m2 [facility] 2019 10:24am
--- OUTSIDE RECORDS SUMMARY | 2022-10-22 01:04 | XMS_ITS | Continuity of Care Document ---
Author Name [facility] Address [address] [place] [address] [id number] [address] [facility] Address [address] [place] [address] Care Team Providers Care Internet Site Designer Name Role Phone Huseyin Zazueta Primary Care [...] have a copy on file here at [facility]? No October 11, 2016 10:50am Does patient have an Advanced Directive? No March 13, 2010 12:10am Pt has a Living Will? No March 13, 2010 12:10am Pt has a Power of Yield Analyst? No Maro 2009 12:10am Hospital Discharge Instructions [...] Provider Departed Referred [facility] Pathology June 15, 2017 7:46am June 15, 2017 7:47am Huseyin Zazueta Departed Referred [facility] Pathology May 10, 2017 9:46pm May 10, 2017 9:47pm Huseyin Zazueta Departed Referred [facility] May 10, 2017 8:39pm May 10, 2017 8:40pm Huseyin Zazueta Departed Referred [facility] May 10, 2017 7:44pm May 10, 2017 7:45pm SadHuseyin huitron Departed Surgical Day Care [facility] Surgical Services February 15, 2017 7:24am February 15, 2017 10:16am LedyCeleste alcazar Departed Emergency [facility] Emergency Department August 18, 2016 11:11am August 18, 2016 11:53am Functional Status No known functional status. Immunizations No known immunizations. Payers Payer Name Policy Type Covered Libertarian Covered Libertarian Id Relationship Subscriber Subscriber Id [employer] EM[employer]ES Commercial MIRTA SOSA [id number] Self/Same as Patient MIRTA SOSA [id number] [facility] [employer] (DO NOT USE) Arteris MIRTA SOSA [id number] Self/Same as Patient MIRTA SOSA [id number] [place] Medicaid SELF PAY Personal [...] 15 2 017 10:15am Respiration 15 RPM 05-29February 15 2 017 10:15am Pulse Oximetry 97 % 95-100 February 15, 2017 10:15am Blood Pressure Systolic 103 100-140 Feb emb2016 10:15am Blood Pressure Diastolic 70 50-85 Feb 10:15am Body Mass Index n/a
--- OUTSIDE RECORDS SUMMARY | 2022-10-22 01:04 | XMS_ITS | Continuity of Care Document ---
Author Name Unknown Address [address] [place] [address] Phone [facility] Address [address] [place] [address] Phone Care Team Providers Care Divinity Professor Name Role Phone Huseyin Zazueta Primary Care Provider [phone] Steven Mejia Attending Provider Huseyin Zazueta Attending Provider Allergies, Adverse Reactions, Alerts Allergen [...] Comment Performing Site Thyroid Stimulating Hormone (TSH) 1.01 mlU/L 0.47-4.68 The results of this assay can be falsely decreased in patients who consume Biotin. MAIN LAB, [address] [facility] [address] Advance Directives Advance Directive Response Recorded Date/ Time Does patient have an Advanced Directive? No March 13, 2010 12:10am Do we have a copy on file here at [facility]? No October 11, 2016 10:50am Pt has a Living Will? No March 12:10am Do we have a copy on file here at [facility]? No October 11, 2016 10:50am Pt has a Power of Snuff Drier? No 2009 12:10am Do we have a copy on file here at [facility]? 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 Colposcopy Encounters Encounter Location(s) Arrival/Admit Date Discharge/Depart Date Provider(s) [facility]arted [facility] April 10, 2019 12:00am April 10, 2019 Conversion Medent Departed Physician/Prov [facility] April 10, 2019 8:05am April 10, 2019 8:32am Steven Mejia MD Departed Referred [facility]Path[facility] June 12, 2019 12:19am June 12, 2019 12:20am Steven Mejia MD Departed Physician/Prov ider [facility] June 12, 2019 3:28pm June 12, 2019 4:01pm Steven Mejia MD Departed Referred [facility] June 27, 2019 7:00pm June 27, 2019 7:01pm Huseyin Zazueta MD Assessments No Assessments Information Available Family [...] Information available Insurance Providers Guarantor MIRTA Burger IAN Address [address] [place] [address] Contact Info. Home Phone: Payer Policy Id Coverage Id Subscriber's Name Subscriber Id Effective Date Expiration Date AETNA [id number] MIRTA SOSA [id number] FED[employer]AL EMPLOYEES [id number] MIRTA SOSA [id number] FEP [employer] CROSS (DO NOT USE) [id number] MIRTA SOSA [id number] MAIL HANDLERS [id number] MIRTA SOSA [id number] [place] SELF PAY Self N/A [...] [facility] Care [address] [facility] [address] Future Procedures Future procedure information is unavailable Future Medications Future medication information is unavailable Patient Instructions Dental Abscess Social History Smoking Status Status Date of Observation Smokes tobacco daily (finding) June 122019 4:25pm Observation Status Observation Response Date of Response Alcohol Use No February 15, 2017 7:44am alcohol intake frequency 0-2 drinks per day [facility] 2016 11:27am Substance/Street Drug Use No 2016 7:44am Smoking Status Current every day smoker June 12, 2019 4:25pm Assigned Sex Female Vital Signs Vital Reading Result Reference Range Collection Date/Time Height 61.5 [in_i] April 10 019 8:12am Weight 60.78 kg April 10 019 8:12am Heart Rate 64 /min 60-100 April 10 019 8:12am Respiratory rate 14 /min 12-April 8:12am BP Systolic 110 mm[Hg] 100-140 April 10 019 8:12am BP Diastolic 70 mm[Hg] 50-85 April 10 019 8:12am BMI (Body Mass Index) 24.9 kg/m2 [facility] 2018 8:12am Height 61.5 [in_i] June 12 3:39pm Weight 61.23 kg June 12 3:39pm BP Systolic 110 mm[Hg] 100-140 June 12 3:39pm BP Diastolic 62 mm[Hg] 50-85 June 12 3:39pm BMI (Body Mass Index) 25.0 kg/m2 [facility] 2019 3:39pm
--- OUTSIDE RECORDS SUMMARY | 2022-10-22 01:04 | XMS_ITS | Continuity of Care Document ---
Author Name [facility] Address [address] [place] [address] Organization [facility] Address [address] [place] [address] Care Team Providers Care Synthetic Filament Extruder Name Role Phone Huseyin Zazueta Primary Care [...] have a copy on file here at [facility]? No October 11, 2016 10:50am Does patient have an Advanced Directive? No March 13, 2010 12:10am Pt has a Living Will? No March 13, 2010 12:10am Pt has a Power of Sounding Device Operator? No Octo 2009 12:10am Hospital Discharge Instructions [...] Attending Provider Departed Referred [facility] Pathology May 10, 2017 9:46pm May 10, 2017 9:47pm Huseyin Zazueta Departed Referred [facility] May 10, 2017 8:39pm May 10, 2017 8:40pm Huseyin Zazueta Departed Referred [facility] May 10, 2017 7:44pm May 10, 2017 7:45pm Huseyin Zazueta Departed Surgical Day Care [facility] Surgical Services February 15, 2017 7:24am February 15, 2017 10:16am Celeste Villafana Departed Emergency [facility] Emergency Department August 18, 2016 11:11am August 18, 2016 11:53am Functional Status No known functional status. Immunizations No known immunizations. Payers Payer Name Policy Type Covered Alliance Party Covered Alliance Party Id Relationship Subscriber Subscriber Id [employer]ES Commercial MIRTA SOSA [id number] Self/Same as Patient MIRTA SOSA [id number] [facility] BLUE CROSS (DO NOT USE) Commercial MIRTA SOSA [id number] Self/Same as Patient MIRTA SOSA [id number] [place] Medicaid SELF PAY Personal [...]
--- OUTSIDE RECORDS SUMMARY | 2022-10-22 01:04 | XMS_ITS | Continuity of Care Document ---
Author Name Unknown Address [address] [place] [address] Phone [facility] Address [address] [place] [address] Phone Care Team Providers Care Director Of Enterprise Architecture Name Role Phone Steven Mejia Attending Provider PCP, of Choice Primary Care Provider Unavailabl e Huseyin Zazueta Primary Care Provider Huseyin Zazueta Attending Provider Candace Corley Attending Provider Allergies, Adverse Reactions, Alerts Allergen Type Severity Reaction Last Updated Verified Status insulin detemir Allergy hives August 07, 2019 Yes Active Medications Medication Status Dose Units Route Sig Qty Days Start Date End Date Instructions Levonorgestrel Active 1 INHALER ONCE N ovember 2018 8:12am Insulin Glargine Discontinu ed 1 UNITS ONCE August 18, 2016 11:15am August 18, 2016 11:24a m Insulin Aspart U-100 Active 5 UNITS TID WITH MEALS 2016 7:34am Atorvastatin Active 40 MG ORAL BEDTIM E August 07, 2019 12:59pm Problems Active Problems Medical Problem Onset Date Status HGSIL (high grade squamous i ntraepithelial lesion) on Pap smear of cervix February 15, 2018 Active Procedures Procedure Date Performed Status Lletz Leep OPD (Not Applicable) August 07, 2019 1:00pm completed Relevant Diagnostic Tests and/or Laboratory Data Laboratory Results Test Date/Time Result Interpretation Reference Range Result Comment Performing Site Thyroid Stimulating Hormone (TSH) June 27, 2019 2:28pm 1.01 mlU/L 0.47-4.68 The results of this assay can be falsely decreased in patients who consume Biotin. MAIN LAB, [address] [place] [id number] Advance Directives Advance Directive Response Recorded Date/ Time Does patient have an Advanced Directive? No March 13, 2010 12:10am Do we have a copy on file here at [facility]? No October 11, 2016 10:50am Pt has a Living Will? No March 12:10am Do we have a copy on file here at [facility]? No October 11, 2016 10:50am Pt has a Power of Marketing Manager Health Communications? No 2009 12:10am Do we have a copy on file here at [facility]? 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 exam R87.613 Colposcopy E10.9 Amb Documentation D48.5 High grade squamous intraepithelial lesion on cyto Encounters Encounter Location(s) Arrival/Admit Date Discharge /Depart Date Provider(s) [facility]ed [facility] April 10, 2019 12:00am April 10, 2019 Conversion Medent Departed Physician[facility]vi [facility] April 10, 2019 8:05am April 10, 2019 8:32am Steven Mejia MD Departed Referred [facility] AWARD CLERK April 10, 2019 8:13am April 10, 2019 8:14am Steven Mejia MD Departed Referred [facility] June 12, 2019 12:19am June 12, 2019 12:20am Steven Mejia MD Departed Physician[facility]vi [facility] June 12, 2019 3:28pm June 12, 2019 4:01pm Steven Mejia MD Departed Referred [facility] June 27, 2019 7:00pm June 27, 2019 7:01pm Huseyin Zazueta MD [facility] COLORIST DYER July 11, 2019 1:37pm Laura Swift RN Departed Referred [facility] July 26, 2019 12:08am July 26, 2019 12:09am Candace Corley MD Departed Surgical Day Care [facility] August 07, 2019 12:46pm August 07, 2019 1:32pm Steven Mejia MD Assessments No Assessments Information [...] Insurance Providers Guarantor MIRTA SOSA Address [address] [facility] [address] Contact Info. Home Phone: Payer Policy Id Coverage Id Subscriber's Name Subscriber Id Effective Date Expiration Date AETNA [id number] MIRTA SOSA [id number] [employer] FEDERAL EM[employer]OYEES [id number] MIRTA SOSA [id number] [facility] [employer] (DO NOT USE) [id number] MIRTA SOSA [id number] [employer] [id number] MIRTA SOSA [id number] [place] SELF PAY Self N/A [...] Choice Dentist Huseyin Zazueta MD Work Phone: [facility] [address] [facility] [address] Future Procedures Future procedure information is unavailable Future Medications Future medication information is unavailable Patient Instructions Dental Abscess Social History Smoking Status Status Date of Observation Smokes tobacco daily (finding) August 12:57pm Observation Status Observation Response Date of Response Alcohol Use No February 15, 2017 7:44am alcohol intake frequency 0-2 drinks per day [facility] 2016 11:27am Substance/Street Drug Use No Febem 2016 7:44am Smoking Status Current every day smoker August 062019 12:57pm Assigned Sex Female Vital Signs Vital Reading Result Reference Range Collection Date/Time Height 61.5 [in_i] April 10, 2 019 8:12am Weight 60.78 kg April 10, 2 019 8:12am Heart Rate 64 /min 60-100 April 10, 2 019 8:12am Respiratory rate 14 /min -April 8:12am BP Systolic 110 mm[Hg] 100-140 April 10, 2 019 8:12am BP Diastolic 70 mm[Hg] 50-85 April 10, 2 019 8:12am BMI (Body Mass Index) 24.9 kg/m2 [facility] 2018 8:12am Height 61.5 [in_i] June 12 3:39pm Weight 61.23 kg June 12 3:39pm BP Systolic 110 mm[Hg] 100-140 June 12 3:39pm BP Diastolic 62 mm[Hg] 50-85 June 12 3:39pm BMI (Body Mass Index) 25.0 kg/m2 Junrai y 2019 3:39pm Body Temperature 98.2 [degF] [...]
--- OUTSIDE RECORDS SUMMARY | 2022-10-22 01:04 | XMS_ITS | Continuity of Care Document ---
Author Name [facility] Address [address] [place] [address] Organization [facility] Address [address] [place] [address] Care Team Providers Care Centrifugal Spinner Name Role Phone Huseyin Zazueta Primary Care Physician [phone] Huseyin Zazueta Attending Physician [phone] Allergies, Adverse Reactions, Alerts No known [...] a copy on file here at [facility]? No October 11, 2016 10:50am Does patient have an Advanced Directive? No March 13, 2010 12:10am Pt has a Living Will? No March 13, 2010 12:10am Pt has a Power of Switchboard Operator Assistant? No Octo 2009 12:10am Hospital Discharge Instructions [...] Date Discharge/Departure Date Attending Provider Departed Referred [facility] Pathology May 10, 2017 9:46pm May 10, 2017 9:47pm Huseyin Zazueta Departed Referred [facility] May 10, 2017 8:39pm May 10, 2017 8:40pm Huseyin Zazueta Departed Referred [facility] May 10, 2017 7:44pm May 10, 2017 7:45pm Huseyin Zazueta Departed Surgical Day Care [facility] Surgical Services February 15, 2017 7:24am February 15, 2017 10:16am Celeste Villafana Departed Emergency [facility] Emergency Department August 18, 2016 11:11am August 18, 2016 11:53am Functional Status No known functional status. Immunizations No known immunizations. Payers Payer Name Policy Type Covered Libertarian Covered Libertarian Id Relationship Subscriber Subscriber Id [employer]ES Commercial MIRTA SOSA [id number] Self/Same as Patient MIRTA SOSA [id number] [facility] BLUE CROSS (DO NOT USE) Commercial MIRTA SOSA [id number] Self/Same as Patient MIRTA SOSA [id number] [place] Medicaid SELF PAY Personal [...]
--- OUTSIDE RECORDS SUMMARY | 2022-10-22 01:04 | XMS_ITS | Continuity of Care Document ---
Author Name [facility] Address [address] [place] [address] Organization [facility] Address [address] [place] [address] Care Team Providers Care Variety Saw Operator Name Role Phone Huseyin Zazueta Primary Care Physician [phone] Huseyin Zazueta Attending Physician Allergies, Adverse Reactions, [...] [facility]? No October 11, 2016 10:50am Does patient have an Advanced Directive? No March 13, 2010 12:10am Pt has a Living Will? No March 13, 2010 12:10am Pt has a Power of Maintainer Plant? No Maro 2009 12:10am Hospital Discharge Instructions [...] Date Discharge/Departure Date Attending Provider Departed Referred [facility] Pathology June 15, 2017 7:46am June 15, 2017 7:47am Huseyin Zazueta Departed Referred [facility] Pathology May 10, 2017 9:46pm May 10, 2017 9:47pm Huseyin Zazueta Departed Referred [facility] May 10, 2017 8:39pm May 10, 2017 8:40pm Huseyin Zazueta Departed Referred [facility] May 10, 2017 7:44pm May 10, 2017 7:45pm SadHuseyin huitron Departed Surgical Day Care [facility] Surgical Services February 15, 2017 7:24am February 15, 2017 10:16am LedyCeleste alcazar Departed Emergency [facility] Emergency Department August 18, 2016 11:11am August 18, 2016 11:53am Functional Status No known functional status. Immunizations No known immunizations. Payers Payer Name Policy Type Covered Alliance Party Covered Alliance Party Id Relationship Subscriber Subscriber Id [employer] FED[employer] EM[employer]YEES Commercial MIRTA SOSA [id number] Self/Same as Patient MIRTA SOSA [id number] [facility] [employer] (DO NOT USE) [employer] MIRTA SOSA [id number] Self/Same as Patient MIRTA SOSA [id number] [place] Medicaid SELF PAY Personal [...]
--- OUTSIDE RECORDS SUMMARY | 2022-10-22 01:04 | XMS_ITS | Continuity of Care Document ---
Author Name [facility] Address [address] [place] [address] Organization [facility] Address [address] [place] [address] Care Team Providers Care Diesel Service Technician Name Role Phone Huseyin Zazueta Primary Care Physician [phone] Huesyin Zazueta Attending Physician [phone] Allergies, Adverse Reactions, Alerts No known [...] have a copy on file here at [facility]? No October 11, 2016 10:50am Does patient have an Advanced Directive? No March 13, 2010 12:10am Pt has a Living Will? No March 13, 2010 12:10am Pt has a Power of Clinic Director? No Octo 2009 12:10am Hospital Discharge Instructions [...] Date Discharge/Departure Date Attending Provider Departed Referred [facility] Pathology May 10, 2017 9:46pm May 10, 2017 9:47pm Huseyin Zazueta Departed Referred [facility] May 10, 2017 8:39pm May 10, 2017 8:40pm Huseyin Zazueta Departed Referred [facility] May 10, 2017 7:44pm May 10, 2017 7:45pm Huseyin Zazueta Departed Surgical Day Care [facility] Surgical Services February 15, 2017 7:24am February 15, 2017 10:16am Celeste Villafana Departed Emergency [facility] Emergency Department August 18, 2016 11:11am August 18, 2016 11:53am Functional Status No known functional status. Immunizations No known immunizations. Payers Payer Name Policy Type Covered Libertarian Covered Libertarian Id Relationship Subscriber Subscriber Id [employer] Commercial MIRTA SOSA [id number] Self/Same as Patient MIRTA SOSA [id number] [facility] BLUE CROSS (DO NOT USE) Commercial MIRTA SOSA [id number] Self/Same as Patient MIRTA SOSA [id number] [place] Medicaid SELF PAY Personal [...]
--- OUTSIDE RECORDS SUMMARY | 2022-10-22 01:04 | XMS_ITS | Continuity of Care Document ---
Author Name [facility] Address [address] [place] [address] [facility] Address [address] [place] [address] Care Team Providers Care Toddler Caregiver Name Role Phone Huseyin Zazueta Primary Care [...] have a copy on file here at [facility]? No October 11, 2016 10:50am Does patient have an Advanced Directive? No March 13, 2010 12:10am Pt has a Living Will? No March 13, 2010 12:10am Pt has a Power of Pricing Strategist? No Octo 2009 12:10am Hospital Discharge Instructions [...] Date Discharge/Departure Date Attending Provider Departed Referred [facility] Pathology January 12, 2018 9:21pm January 12, 2018 9:22pm Huseyin Zazueta Departed Referred [facility] June 22, 2017 7:24pm June 22, 2017 7:25pm Huseyin Zazueta Departed Referred [facility] Pathology June 15, 2017 7:46am June 15, 2017 7:47am Huseyin Zazueta Departed Referred [facility] Pathology May 10, 2017 9:46pm May 10, 2017 9:47pm Huseyin Zazueta Departed Referred [facility] Primary [facility] May 10, 2017 8:39pm May 10, 2017 8:40pm Huseyin Zazueta Departed Referred [facility] Primary [facility] May 10, 2017 7:44pm May 10, 2017 7:45pm Huseyin Zazueta Departed Surgical Day Care [facility] Surgical Services February 15, 2017 7:24am February 15, 2017 10:16am Celeste Villafana Functional Status No known functional status. Immunizations No known immunizations. Payers Payer Name Policy Type Covered Republican Covered Republican Id Relationship Subscriber Subscriber Id [employer]ET[employer] Commercial MIRTA SOSA [id number] Self/Same as Patient MIRTA SOSA [id number] [employer] FEDERAL EMPLOYEES Commercial MIRTAALYSE SOSA [id number] Self/Same as Patient MIRTA SOSA [id number] [facility] [employer] (DO NOT USE) Commercial MIRTA SOSA [id number] Self/Same as Patient MIRTA SOSA [id number] [place] Medicaid SELF PAY Personal [...]
--- OUTSIDE RECORDS SUMMARY | 2022-10-22 01:04 | XMS_ITS | Continuity of Care Document ---
Author Name [facility] Address [address] [place] [address] Organization [facility] Address [address] [place] [address] Support Name Relationship Address Phone Huseyin Zazueta Primary Care Provider [facility] [address] [place] [address] Benedicto Diane Attending Provider [facility] [address] [place] [address] Referral, Self Referring Provider Unknown [...] 20, 2020 1:36pm Large (+++) Urine Specific [place] (Manual) August 20, 2020 1:36pm 1.025 POC [...] Attending Provider Departed Physician/Pr ovider Office Visit [facility] PULMONARY PHYSICIAN August 20, 2020 12:58pm August 20, 2020 1:28pm Benedicto Diane Departed Physician/Pr ovider Office Visit [facility] PULMONARY PHYSICIAN July 29, 2020 3:21pm July 29, 2020 [...] 2020 1:02pm Blood Pressure Systolic 108 100-140 [facility] 2020 1:02pm Blood Pressure Diastolic 60 50-85 [facility] 2020 1:02pm Body Mass Index 23.8 August 20 1:02pm
--- OUTSIDE RECORDS SUMMARY | 2022-10-22 01:04 | XMS_ITS | Continuity of Care Document ---
Author Name Unknown Address [address] [place] [address] Phone [facility] Address [address] [place] [address] Phone Support Name Relationship Address Phone PAULINO PENNY Mother Unknown SALVADOR ZARATE Partner Unknown Huseyin Zazueta Primary Care Provider [facility] [place] [address] Steven Mejia Attending Provider [facility] [place] [address] Referral, Self Referring Provider Unknown Unavail able Benedicto Diane Attending Provider [facility] [place] [address] Care Team Providers Care Financial Reporting Advisor Name Role Phone Huseyin Zazueta Primary Care Provider Candace Corley Attending Provider Steven Mejia Attending Provider Allergies, Adverse Reactions, Alerts Allergen Type Severity Reaction Last Updated Verified Status insulin detemir Allergy hives July 21, 2020 6:49 am Yes Active Medications Medication Status Dose Units Route Directions Qty Days St art Date End Date Instructions Levonorgestre l (Mirena) 20 mcg/24 hours (5 yrs) 52 mg intrauterine device Disconti nued 1 INHALER IY ONCE 2018 8:12am Februa ry 2020 3:25pm Insulin Glargine (Lantus Solostar) 100 unit/mL (3 mL) Insulin Pen Disconti nued 1 UNITS SC ONCE August 18, 2016 10:15am August 18, 2016 10:24a m Insulin Aspart U-100 (Novolog U-100 Insulin Aspart) 100 unit/mL solution Active 0 .ROUTE .COMPLEX Februar y 2020 11:18am INSULIN PUMP USES 19.7 UNITS/DAY Problems Active Problems Medical Problem Onset Date Status HGSIL (high grade squamous i ntraepithelial lesion) on Pap smear of cervix February 15, 2018 Active Advance Directives Advance Directive Response Recorded Date/ Time Does patient have an Advanced Directive? No March 12, 2010 11:10pm Do we have a copy on file here at [facility]? No October 11, 2016 9:50am Pt has a Living Will? No March 11:10pm Do we have a copy on file here at [facility]? No October 11, 2016 9:50am Pt has a Power of Harness Inspector? No 2009 11:10pm Do we have a copy on file here at [facility]? 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 CLERK TYPIST annual exam Z11.51 discussion consult Pre Op High grade squamous intraepithelial lesion on cyto Reason for Visit HGSIL (high grade sq uamous intraepithelial lesion) on Pap smear of cervix HGSIL (high grade squamous intraepithelial lesion) on Pap smear of cervix HGSIL (high grade squamous intraepithelial lesion) on Pap smear of cervix HGSIL (high grade squamous intraepithelial lesion) on Pap smear of cervix Encounters Encounter Location(s) Arrival/Admit Date Discharge /Depart Date Provider(s) Departed Referred [facility] July 26, 2019 12:08am July 26, 2019 12:09am Candace Corley [facility] August 07, 2019 12:46pm August 07, 2019 1:32pm Steven Mejia MD Departed Physician/Provi shwetha [facility] April 14, 2020 10:20am April 14, 2020 10:32am Steven Mejia MD Departed Referred [facility] SHIFT STACKER April 14, 2020 10:21am April 14, 2020 10:22am Steven Mejia MD Departed Physician/Provi shwetha [facility] May 20, 2020 2:30pm May 20, 2020 2:38pm Steven Mejia MD Departed Physician/Provi shwetha [facility] June 05, 2020 1:07pm June 05, 2020 1:34pm Red Diane MD Departed Physician/Provi shwetha [facility] July 16, 2020 1:50pm July 16, 2020 2:10pm Red Diane MD [facility] July 21, 2020 6:31am July 21, 2020 4:25pm Red Diane MD Recent Diagnosis Onset Date [...] Insurance Providers Guarantor MIRTA SOSA Address [address] [facility] [address] Contact Info. Home Phone: Payer Policy Id Coverage Id Subscriber's Name Subscriber Id Effective Date Expiration Date IZABELTNA [id number] MIRTA SOSA [id number] [employer] [id number] MIRTA SOSA [id number] [facility] aWhere (DO NOT USE) [id number] MIRTA SOSA [id number] [employer] [id number] MIRTA SOSA [id number] [place] SELF PAY Self N/A [...] follow-up appointment is with Dr. Diane on L. Red Diane MD Work Phone: [facility] NUTRITION ASSOCIATE [address] [place] [address] Future Procedures Future procedure information is unavailable Future Medications Future medication information is unavailable Patient Instructions Hysterectomy (DC) COVID 19 CDC D/C Instructions ([facility]) v.01/15/20 COVID 19 General Instructions- decrease the spread of coronavirus ([facility]) Social History Smoking Status Status Date of Observation Smokes tobacco daily (finding) July 16, 2020 2:55pm Observation Status Observation Response Date of Response Alcohol Use Yes July 08 11:00am alcohol intake frequency 0-2 drinks per day Febr uary 2020 11:00am Substance/Street Drug Use No Februa ry 2020 11:00am Smoking Status Current every day smoker uar y 2020 2:55pm Assigned Sex Female Vital Signs Vital Reading [...] 2019 1:25pm Height 61.5 [in_i] April 14, 10:24am Weight 61.74 kg April 14 10:24am BP Systolic 112 mm[Hg] 100-140 April 14 020 10:24am BP Diastolic 62 mm[Hg] 50-85 April 14 020 10:24am BMI (Body Mass Index) 25.2 kg/m2 [facility] 2019 10:24am Height 62 [in_i] July 07, 021 11:20am Weight 58.96 kg July 07 021 [...]
--- OUTSIDE RECORDS SUMMARY | 2022-10-22 01:04 | XMS_ITS | Continuity of Care Document ---
Author Name [facility] Address [address] [place] [address] Organization [facility] Address [address] [place] [address] Care Team Providers Care Golf Cart Attendant Name Role Phone Huseyin Zazueta Primary Care Physician [phone] Steven Mejia Attending Physician [phone] Allergies, Adverse Reactions, Alerts Allergen Type Severity Reaction Last Updated Verified Status insulin detemir Allergy hives April 14, 2020 Y Active Medications Active Medications Medication Dose Units Route Sig Start Date Status Levonorgestrel [Mirena] 1 INHALER INTRAUTERI ONCE April 10, 2019 Active Insulin Aspart U-100 [Novolog Flexpen] 5 UNITS SUBCUTANEOUS TID WITH MEALS 2016 Active Atorvastatin 40 MG ORAL BEDTIME August 07, 2019 Activ e Discontinued Medications Medication Dose Units Route Sig Start Date Discontinu ed Date Status Insulin Glargine [Lantus Solostar] 1 UNITS SUBCUTANEOUS ONCE August 18, 2016 August 18, 2016 Discontinued Problem List Active Problems Medical Problem Onset Date Status HGSIL (high grade squamous i ntraepithelial lesion) on Pap smear of cervix February 15, 2018 Procedures Procedure Date Status CONZ OF CERVIX W/SCOPE LEEP August 07, 2019 acti ve Relevant Diagnostic Tests and/or Laboratory Data Laboratory [...] Order Date Status Instructions Levonorgestrel 1 INHALER INTRAUTER I ONCE April 10, 2019 Active Insulin Glargine 1 UNITS SUBCUTANE OUS ONCE August 18, 2016 Discontinu ed Insulin Aspart U-100 5 UNITS SUBCUTANE OUS TID WITH MEALS February 15, 2017 Active Atorvastatin 40 MG ORAL BEDTIME Aug Active Encounters Encounter Facility Location Admit/Visit Date Discharge/Departure Date Attending Provider Departed Referred [facility] ACQUISITION LEAD April 14, 2020 10:21am April 14, 2020 10:22am Steven Mejia Departed Physician/Pr ovider Office Visit [facility] QUALITY ANALYST/TECHNICAL WRITER April 14, 2020 10:20am April 14, 2020 10:32am Steven Mejia Registered Inpatient [facility] QUALITY ANALYST/TECHNICAL WRITER August 07, 2019 12:46pm Steven Mejia Departed Referred [facility] Pathology July 26, 2019 12:08am July 26, 2019 12:09am Candace Corley Registered Inpatient [facility] QUALITY ANALYST/TECHNICAL WRITER July 11, 2019 1:37pm Laura Swift Departed Referred [facility] June 27, 2019 7:00pm June 27, 2019 7:01pm Huseyin Zazueta Departed Physician/Pr ovider Office Visit [facility] QUALITY ANALYST/TECHNICAL WRITER June 12, 2019 3:28pm June 12, 2019 4:01pm Steven Mejia Departed Referred [facility] Pathology June 12, 2019 12:19am June 12, 2019 12:20am Steven Mejia Functional Status No known functional status. Immunizations No known immunizations. Plan of Care No Known Plan of Care Information Social History Query Response Date Recorded Comment Alcohol Use No August 12, 2019 10:34am Smoking Status Current every day smoker April 14 10:34am Substance/Street Drug Use No August 12, 2019 1 0:34am alcohol intake frequency 0-2 drinks per day August 11 10:34am Query Response Start Date Stop Date Smoking Status Current every day smoker Vital Signs Vital Reading Result Reference Range Collection Date/Time Height 5 ft 1.5 in April 14 0 10:24am Weight 61.745 kg April 14 0 10:24am Temperature 98.2 F 97.6 F-99.6 F August 07, 2019 12:57pm Pulse 70 BPM 60-100 August 07, 2019 1 :25pm Respiration 18 RPM 12-24 August 07, 2019 1 :25pm Pulse Oximetry 98 % 95-100 August 07, 2019 1:25pm [facility] 112 100[facility] Blood Pressure Diastolic 62 50-85 Apr [facility]2019 10:24am Body Mass Index 25.2 April 14, 2020 10:24am
--- OUTSIDE RECORDS SUMMARY | 2022-10-22 01:04 | XMS_ITS | Continuity of Care Document ---
Author Name Unknown Address [address] [place] [address] [facility] Address [address] [place] [address] Phone Care Team Providers Care Oil Heater Operator Name Role Phone Huseyin Zazueta Primary Care Provider [phone] Steven Mejia Attending Provider [phone] Allergies, Adverse Reactions, Alerts Allergen Type Severity Reaction Last Updated Verified Status insulin detemir Allergy hives July 21, 2020 6:49 am Yes Active Medications Medication Status Dose Units Route Directions Qty Days St art Date End Date Instructions Levonorgestre l (Mirena) 20 mcg/24 hours (5 yrs) 52 mg intrauterine device Disconti nued 1 INHALER IY ONCE 2018 8:12am Febr2020 3:25pm Insulin Glargine (Lantus Solostar) 100 unit/mL [...] have a copy on file here at [facility]? No October 11, 2016 9:50am Pt has a Living Will? No March 11:10pm Do we have a copy on file here at [facility]? No October 11, 2016 9:50am Pt has a Power of Machinery Erector? No 2009 11:10pm Do we have a copy on file here at [facility]? No October 11, 2016 9:50am Chief Complaint and Reason for Visit Chief Complaint High grade squamous intraepithelial lesion on cyto PROFESSOR OF EDUCATION annual exam Z11.51 discussion consult Pre Op High grade squamous intraepithelial lesion on cyto Vaginal Complaints Reason for Visit HGSIL (high grade sq uamous intraepithelial lesion) on Pap smear of cervix HGSIL (high grade squamous intraepithelial lesion) on Pap smear of cervix HGSIL (high grade squamous intraepithelial lesion) on Pap smear of cervix HGSIL (high grade squamous intraepithelial lesion) on Pap smear of cervix Encounters Encounter Location(s) Arrival/Admit Date Discharge /Depart Date Provider(s) Registered Outpatient [facility] CORE PLACER August 07, 2019 12:46pm August 07, 2019 1:32pm Steven Mejia MD Departed Physician/Provi shwetha Office Visit [facility] CORE PLACER April 14, 2020 10:20am April 14, 2020 10:32am Steven Mejia MD Departed Referred [facility] FIRE EXTINGUISHER TESTER April 14, 2020 10:21am April 14, 2020 10:22am Steven Mejia MD Departed Physician/Provi shwetha Office Visit [facility] CORE PLACER May 20, 2020 2:30pm May 20, 2020 2:38pm Steven Mejia MD Departed Physician/Provi shwetha Office Visit [facility] CORE PLACER June 05, 2020 1:07pm June 05, 2020 1:34pm Red Diane MD Departed Physician/Provi shwetha Office Visit [facility] CORE PLACER July 16, 2020 1:50pm July 16, 2020 2:10pm Red Diane MD Registered Outpatient [facility] CORE PLACER July 21, 2020 6:31am July 21, 2020 4:25pm Red Diane MD Departed Physician/Provi shwetha Office Visit [facility] CORE PLACER July 29, 2020 3:21pm July 29, 2020 3:45pm Steven Mejia MD Recent Diagnosis Onset Date [...] Equipment Information available Insurance Providers Guarantor MIRTA Tao IAN Address [address] [facility] [address] Contact Info. Home Phone: Payer Policy Id Coverage Id Subscriber's Name Subscriber Id Effective Date Expiration Date [employer] [id number] MIRTA SOSA [id number] [employer] FEDERAL EMPLOYEES [id number] MIRTA SOSA [id number] [facility] [employer] (DO NOT USE) [id number] MIRTA SOSA [id number] [employer] [id number] MIRTA SOSA [id number] [place] SELF PAY Self N/A [...] on L. Red Diane MD Work Phone: [facility] CORE PLACER [address] [place] [address] Future Procedures Future procedure information is unavailable Future Medications Future medication information is unavailable Patient Instructions Hysterectomy (DC) COVID 19 CDC D/C Instructions ([facility]) v.01/15/20 COVID 19 General Instructions- decrease the spread of coronavirus ([facility]) Social History Smoking Status Status Date of Observation Smokes tobacco daily (finding) July 29, 2020 3:31pm Observation Status Observation Response Date of Response Alcohol Use Yes July 08 11:00am alcohol intake frequency 0-2 drinks per day Febr 2020 11:00am Substance/Street Drug Use No ua 2020 11:00am Smoking Status Current every day smoker uar y 2020 3:31pm Assigned Sex Female Vital Signs Vital Reading [...] 10:24am BMI (Body Mass Index) 25.2 kg/m2 [facility] 2019 10:24am Height 62 [in_i] July 07 11:20am Weight 58.96 kg July 07 11:20am Body Temperature 97.5 [degF] 97.6-99.6 July [...]
--- OUTSIDE RECORDS SUMMARY | 2022-10-22 01:04 | XMS_ITS | Continuity of Care Document ---
Author Name [facility] Address [address] [place] [address] Organization [facility] Address [address] [place] [address] Care Team Providers Care Therapy Technician Name Role Phone Huseyin Zazueta Primary [...] developed and its performance characteristics determined by [facility] in a manner consistent with CLIA requirements. This test has not been cleared or approved by the U.S. Food and Drug Administration. Test Performed by: [facility] - [address] [address] Television Inspector: Gigi Anders II, M.D., Ph.D. Advance Directives Advance Directive Response Recorded Date/ Time Do we have a copy on file here at [facility]? No October 11, 2016 10:50am Does patient have an Advanced Directive? No March 13, 2010 12:10am Pt has a Living Will? No March 13, 2010 12:10am Pt has a Power of Architecture Consultant? No Octo 2009 12:10am Chief Complaint and [...] Date Discharge/Departure Date Attending Provider Departed Emergency [facility] Emergency Department August 18, 2016 11:11am August 18, 2016 11:53am Registered Referred [facility] May 05, 2016 7:45pm Huseyin Zazueta Registered Referred [facility] April 27, 2016 6:52pm Prabhakar Jimenez Functional Status No known functional status. Immunizations No known immunizations. Payers Payer Name Policy Type Covered Libertarian Covered Libertarian Id Relationship Subscriber Subscriber Id [employer] (DO NOT USE) Commercial MIRTA SOSA [id number] Self/Same as Patient MIRTA SOSA [id number] SELF PAY Personal Plan of Care No [...] 7 11:16am Blood Pressure Systolic 103 100-140 [facility] 2016 11:16am Blood Pressure Diastolic 77 50-85 [facility] 2016 11:16am Body Mass Index n/a
--- OUTSIDE RECORDS SUMMARY | 2022-10-22 01:04 | XMS_ITS | Continuity of Care Document ---
Author Name Unknown Address [address] [place] [address] Phone [facility] Address [address] [place] [address] Phone Care Team Providers Care Travel Attendants Name Role Phone Huseyin Zazueta Primary Care Provider Steven Mejia Attending Provider Huseyin Zazueta Attending Provider [phone] Candace Corley Attending Provider Allergies, Adverse Reactions, [...] patients who consume Biotin. MAIN LAB, [address] [facility] [address] Advance Directives Advance Directive Response Recorded Date/ Time Does patient have an Advanced Directive? No March 13, 2010 12:10am Do we have a copy on file here at [facility]? No October 11, 2016 10:50am Pt has a Living Will? No March 12:10am Do we have a copy on file here at [facility]? No October 11, 2016 10:50am Pt has a Power of Systems Test Technician? No 2009 12:10am Do we have a copy on file here at [facility]? No October 11, 2016 10:50am Chief Complaint and Reason for Visit Chief Complaint BEATER LEAD annual exam R87.613 Colposcopy E10.9 Amb Documentation Encounters Encounter Location(s) Arrival/Admit Date Discharge /Depart Date Provider(s) Departed Physician/Provi [facility] CARRIAGE OPERATOR April 10, 2019 12:00am April 10, 2019 Conversion Medent Departed Physician/Provi shwetha [facility]AW CARRIAGE OPERATOR April 10, 2019 8:05am April 10, 2019 8:32am Steven Mejia MD Departed Referred [facility]-Pathology June 12, 2019 12:19am June 12, 2019 12:20am Steven Mejia MD Departed Physician/Provi shwetha [facility] RESAW CARRIAGE OPERATOR June 12, 2019 3:28pm June 12, 2019 4:01pm Steven Mejia MD Departed Referred [facility] June 27, 2019 7:00pm June 27, 2019 7:01pm Huseyin Zazueta MD [facility] RESAW CARRIAGE OPERATOR July 11, 2019 1:37pm Laura Swift RN Departed Referred [facility] July 26, 2019 12:08am July 26, 2019 12:09am Candace Corley MD Assessments No Assessments Information Available Family [...] Insurance Providers Guarantor MIRTA Tao IAN Address [address] [facility] [address] Contact Info. Home Phone: Payer Policy Id Coverage Id Subscriber's Name Subscriber Id Effective Date Expiration Date AETNA [id number] MIRTA Tao SOSA [id number] [employer] [id number] MIRTA Tao SOSA [id number] [facility] [employer] (DO NOT USE) [id number] MIRTA Tao IAN [id number] [employer] [id number] MIRTA Burger IAN [id number] [place] SELF PAY Self N/A [...] Choice Dentist Huseyin Zazueta MD Work Phone: [facility] Primary Care [address] [facility] [address] Future Procedures Future procedure information is unavailable Future Medications Future medication information is unavailable Patient Instructions Dental Abscess Social History Smoking Status Status Date of Observation Smokes tobacco daily (finding) June 122019 4:25pm Observation Status Observation Response Date of Response Alcohol Use No February 15, 2017 7:44am alcohol intake frequency 0-2 drinks per day [facility] 2016 11:27am Substance/Street Drug Use No 2016 7:44am Smoking Status Current every day smoker June 12, 2019 4:25pm Assigned Sex Female Vital Signs Vital Reading Result Reference Range Collection Date/Time Height 61.5 [in_i] November 5th, 2 019 8:12am Weight 60.78 kg April 10, 2 019 8:12am Heart Rate 64 /min 60-100 April 10, 2 019 8:12am Respiratory rate 14 /min 12-24 April 8:12am BP Systolic 110 mm[Hg] 100-140 April 10, 2 019 8:12am BP Diastolic 70 mm[Hg] 50-85 April 10, 2 019 8:12am BMI (Body Mass Index) 24.9 kg/m2 [facility] 2018 8:12am Height 61.5 [in_i] June 12, 3:39pm Weight 61.23 kg June 12, 3:39pm BP Systolic 110 mm[Hg] 100-140 June 12, 3:39pm BP Diastolic 62 mm[Hg] 50-85 June 12 3:39pm BMI (Body Mass Index) 25.0 kg/m2 [facility] 2019 3:39pm
--- OUTSIDE RECORDS SUMMARY | 2022-10-22 01:04 | XMS_ITS | Continuity of Care Document ---
Author Name [facility] Address [address] [place] [address] Organization [facility] Address [address] [place] [address] Care Team Providers Care Screw Machine Hand Name Role Phone Huseyin Zazueta Primary Care Physician Steven Mejia Attending Physician [phone] Allergies, Adverse Reactions, Alerts Allergen Type Severity Reaction Last Updated Verified Status insulin detemir Allergy hives August 07, 2019 Y Ac tive Medications Active Medications Medication Dose Units Route [...] 15, 2018 Procedures Procedure Date Status Provider(s) LEEP procedure August 07, 2019 completed Tyshawn Mejia MD Relevant Diagnostic Tests and/or Laboratory Data Laboratory Results Test Date/Time Result Interp. Ref. Range Result Co mment Thyroid Stimulating Hormone (TSH) June 27, 2019 2:28pm 1.01 mlU/L 0.47-4.68 The results of this assay can be falsely decreased in patients who consume Biotin. Chief Complaint and Reason for Visit Encounter Admit Date Chief Complaint Reason for V isit Departed Surgical Day Care August 07, 2019 12:46pm High grade squamous intraepithelial lesion on cyto [...] Date Attending Provider Departed Surgical Day Care [facility] Surgical Services August 07, 2019 12:46pm August 07, 2019 1:32pm Steven Mejia Departed Referred [facility] Pathology July 26, 2019 12:08am July 26, 2019 12:09am Candace Corley Registered Inpatient [facility] WRAPPER SHEETER July 11, 2019 1:37pm Laura Swift Departed Referred [facility] June 27, 2019 7:00pm June 27, 2019 7:01pm Huseyin Zazueta Departed Physician/Pr ovider Office Visit [facility] WRAPPER SHEETER June 12, 2019 3:28pm June 12, 2019 4:01pm Steven Mejia Departed Referred [facility] Pathology June 12, 2019 12:19am June 12, 2019 12:20am Steven Mejia Departed Referred [facility] MARINE AIR GROUND TASK FORCE PLANNERS April 10, 2019 8:13am April 10, 2019 8:14am Steven Mejia Departed Physician/Pr ovider Office Visit [facility] WRAPPER SHEETER April 10, 2019 8:05am April 10, 2019 8:32am Steven Mejia Departed Physician/Pr ovider Office Visit [facility] WRAPPER SHEETER April 10, 2019 12:00am April 10, 2019 Medent, Conversion Functional Status No known functional status. Immunizations No known immunizations. Payers Payer Name Policy Type Covered Green Party Covered Green Party Id Relationship Subscriber Subscriber Id AET[employer] Commercial MIRTA SOSA [id number] Self/Same as Patient MIRTA SOSA [id number] [employer] EMPLO[employer]ES Commercial MIRTAALYSE SOSA [id number] Self/Same as Patient MIRTA SOSA [id number] [facility] [employer] (DO NOT USE) Commercial MIRTA SOSA [id number] Self/Same as Patient MIRTA SOSA [id number] [employer] Commercial MIRTA SOSA [id number] Self/Same as Patient MIRTA SOSA [id number] [place] Medicaid SELF PAY Personal Plan of Care No Known Plan of Care Information Social History Query Response Date Recorded Comment Alcohol Use No February 15, 2017 7:44am Smoking Status Current every day smoker August 07, 2019 12:57pm Substance/Street Drug Use No February 15 017 7:44am alcohol intake frequency 0-2 drinks per day August 18, 2016 11:27am Query Response Start Date Stop Date Smoking Status Current every day smoker Vital Signs Vital Reading Result Reference Range Collection Date/Time Height 5 ft 1.5 in June 12, 2019 3:39pm Weight n/a Temperature 98.2 F 97.6 F-99.6 F August 07, 2019 12:57pm Pulse 70 BPM 60-100 August 07, 2019 1 :25pm Respiration 18 RPM 12-24 August 07, 2019 1 :25pm Pulse Oximetry 98 % 95-100 August 07, 2019 1:25pm Blood Pressure Systolic 114 100-140 [facility] 2019 1:25pm Blood Pressure Diastolic 76 50-85 Mar 2019 1:25pm Body Mass Index 25.0 June 12 2 020 3:39pm
--- OUTSIDE RECORDS SUMMARY | 2022-10-22 01:04 | XMS_ITS | Continuity of Care Document ---
Author Name Unknown Address [address] [place] [address] Phone [facility] Address [address] [place] [address] Phone Care Team Providers Care Manager Willow Name Role Phone Steven Mejia Attending Provider [phone] PCP, of Choice Primary Care Provider Unavailabl [...] in patients who consume Biotin. MAIN LAB, [address] [place] [address] Advance Directives Advance Directive Response Recorded Date/ Time Does patient have an Advanced Directive? No March 13, 2010 12:10am Do we have a copy on file here at [facility]? No October 11, 2016 10:50am Pt has a Living Will? No March 12:10am Do we have a copy on file here at [facility]? No October 11, 2016 10:50am Pt has a Power of Convention Services Manager? No 2009 12:10am Do we have a copy on file here at [facility]? No October 11, 2016 10:50am Chief Complaint and Reason for Visit Chief Complaint WASH OIL COOLER OPERATOR annual exam R87.613 Colposcopy E10.9 Amb Documentation D48.5 High grade squamous intraepithelial lesion on cyto Post Operative Visit Encounters Encounter Location(s) Arrival/Admit Date Discharge /Depart Date Provider(s) Departed Physician/Provi shwetha Office Visit [facility] DEVELOPMENT COORDINATOR April 10, 2019 12:00am April 10, 2019 Conversion Medent Departed Physician/Provi shwetha Office Visit [facility] DEVELOPMENT COORDINATOR April 10, 2019 8:05am April 10, 2019 8:32am Steven Mejia MD Departed Referred [facility] PRINTER FLOOR COVERING ASSISTANT April 10, 2019 8:13am April 10, 2019 8:14am Steven Mejia MD Departed Referred [facility]Path[facility] June 12, 2019 12:19am June 12, 2019 12:20am Steven Mejia MD Departed Physician/Provi shwetha Office Visit [facility] DEVELOPMENT COORDINATOR June 12, 2019 3:28pm June 12, 2019 4:01pm Steven Mejia MD Departed Referred [facility] June 27, 2019 7:00pm June 27, 2019 7:01pm Huseyin Zazueta MD Registered Inpatient [facility] DEVELOPMENT COORDINATOR July 11, 2019 1:37pm Laura Swift RN Departed Referred [facility] July 26, 2019 12:08am July 26, 2019 12:09am Candace Corley MD Registered Inpatient [facility] DEVELOPMENT COORDINATOR August 07, 2019 12:46pm Steven Mejia MD Departed Physician/Provi shwetha Office Visit [facility] DEVELOPMENT COORDINATOR August 28, 2019 1:26pm August 28, 2019 11:59pm Steven Mejia MD Assessments No Assessments Information [...] available Insurance Providers Guarantor MIRTA SOSA Address [address] [place] [address] Contact Info. Home Phone: Payer Policy Id Coverage Id Subscriber's Name Subscriber Id Effective Date Expiration Date AETNA [id number] MIRTA SOSA [id number] [employer] FEDERAL EMPLOYEES [id number] MIRTA SOSA [id number] [facility] [employer] (DO NOT USE) [id number] MIRTA SOSA [id number] [employer] [id number] MIRTA SOSA [id number] [place] SELF PAY Self N/A Plan of Treatment Normal exam today. Pap test done. Follow in one year if normal. Discussed her IUD removal and possible tubal ligation. HGSIL. Follow for results and treatment plan. Will need to repeat her pap test in 6 months. I have stressed the importance of follow up. Future Tests Future scheduled test information is unavailable Pending Tests Pending diagnostic test information is unavailable Future Visits Future appointment information is unavailable Referrals to Other Providers Reason for Referral Referral Start Date Provider Provider Contact Information Provider Address Of Choice Dentist Huseyin Zazueta MD Work Phone: [facility] Care [address] [facility] [address] Future Procedures Future procedure information is unavailable Future Medications Future medication information is unavailable Patient Instructions Dental Abscess Social History Smoking Status Status Date of Observation Smokes tobacco daily (finding) August 1:25pm Observation Status Observation Response Date of Response Alcohol Use No August 12, 2019 10:34am alcohol intake frequency 0-2 drinks per day 2019 10:34am Substance/Street Drug Use No August 12, 2019 10:34am Smoking Status Current every day smoker August 052019 1:25pm Assigned Sex Female Vital Signs Vital Reading Result Reference Range Collection Date/Time Height 61.5 [in_i] April 10, 8:12am Weight 60.78 kg April 10, 019 8:12am Heart Rate 64 /min 60-100 April 10, 019 8:12am Respiratory rate 14 /min -April 8:12am BP Systolic 110 mm[Hg] 100-140 April 10, 2 019 8:12am BP Diastolic 70 mm[Hg] 50-85 April 10, 019 8:12am BMI (Body Mass Index) 24.9 kg/m2 [facility] 2018 8:12am Height 61.5 [in_i] June 12 3:39pm Weight 61.23 kg June 12 3:39pm BP Systolic 110 mm[Hg] 100-140 June 12 3:39pm BP Diastolic 62 mm[Hg] 50-85 June 12 3:39pm BMI (Body Mass Index) 25.0 kg/m2 Junfilemon2019 3:39pm Body Temperature 98.2 [degF] 97.6-99.6 August [...]
--- OUTSIDE RECORDS SUMMARY | 2022-10-22 01:05 | XMS_ITS | Continuity of Care Document ---
Author Name Unknown Address [address] [place] [address] Phone [facility] Address [address] [place] [address] Phone Allergies, Adverse Reactions, Alerts Allergen Type Severity Reaction Last Updated Verified Status insulin detemir Allergy hives August 20, 2020 12:07pm Yes Active Social History Smoking Status Status Start Date End Date Date of Observa tion Smokes tobacco daily (finding) August 20, 2020 1:07pm Observation Status Observation Response Date of Response Alcohol Use Yes July 08 11:00am alcohol intake frequency 0-2 drinks per day Febr uary 2020 11:00am Substance/Street Drug Use No ua 2020 11:00am Smoking Status Current every day smoker August 042020 12:07pm Additional Data Assigned Sex Female Family History Relationship Condition Age at Onset Recorded Date/T helga Parent No current problems or disability Unknown Parent Malignant neoplasm of prostate Unknown Malignant neoplasm of breast Unknown Hypertension Unknown Not Specified Malignant neoplasm of colon Unknown Problems Active Problems Medical Problem Onset Date Status H/O bilateral salpingectomy Acti ve HGSIL (high grade squamous i ntraepithelial lesion) on Pap smear of cervix February 15, 2018 Active H/O: hysterectomy Active Medications Medication Status Dose Units Route [...] 2020 11:18am INSULIN PUMP USES 19.7 UNITS/DAY Advance Directives Advance Directive Response Recorded Date/ Time Does patient have an Advanced Directive? No March 12, 2010 11:10pm Do we have a copy on file here at [facility]? No October 11, 2016 9:50am Pt has a Living Will? No March 11:10pm Do we have a copy on file here at [facility]? No October 11, 2016 9:50am Pt has a Power of Public Health Clinical Nurse Specialist? No 2009 11:10pm Do we have a copy on file here at [facility]? No October 11, 2016 9:50am Insurance Providers Guarantor MIRTA SOSA Address [address] [facility] [address] Contact Info. Home Phone: Payer Policy Id Coverage Id Subscriber's Name Subscriber Id Effective Date Expiration Date AETNA [id number] MIRTA SOSA [id number] [employer]ES [id number] MIRTA SOSA [id number] [facility] [employer] (DO NOT USE) [id number] MIRTA SOSA [id number] [employer] [id number] MIRTA SOSA [id number] [place] S[place]F [place]Y Self N/A
--- OUTSIDE RECORDS SUMMARY | 2022-10-22 01:05 | XMS_ITS | Continuity of Care Document ---
Author Name Unknown Address [address] [place] [address] Phone [facility] Address [address] [place] [address] Phone Allergies, Adverse Reactions, Alerts Allergen Type Severity Reaction Last Updated Verified Status insulin detemir Allergy hives August 20, 2020 1:07pm Yes Active Social History Smoking Status Status Start Date End Date Date of Observa tion Smokes tobacco daily (finding) August 20, 2020 2:07pm Observation Status Observation Response Date of Response Alcohol Use Yes July 08 12:00pm alcohol intake frequency 0-2 drinks per day Febr uary 2020 12:00pm Substance/Street Drug Use No ua 2020 12:00pm Smoking Status Current every day smoker August 042020 1:07pm Additional Data Assigned Sex Female Family History [...] nued 1 INHALER IY ONCE 2018 9:12am Februa 2020 4:25pm Insulin Glargine (Lantus Solostar) 100 unit/mL (3 mL) Insulin Pen Disconti nued 1 UNITS SC ONCE August 18, 2016 11:15am August 18, 2016 11:24a m Insulin Aspart U-100 (Novolog U-100 Insulin Aspart) 100 unit/mL solution Active 0 .ROUTE .COMPLEX Februar y 2020 12:18pm INSULIN PUMP USES 19.7 UNITS/DAY Advance Directives Advance Directive Response Recorded Date/ Time Does patient have an Advanced Directive? No March 13, 2010 12:10am Do we have a copy on file here at [facility]? No October 11, 2016 10:50am Pt has a Living Will? No March 12:10am Do we have a copy on file here at [facility]? No October 11, 2016 10:50am Pt has a Power of Roastmaster? No 2009 12:10am Do we have a copy on file here at [facility]? No October 11, 2016 10:50am Insurance Providers Guarantor MIRTA SOSA Address [address] [facility] [address] Contact Info. Home Phone: Payer Policy Id Coverage Id Subscriber's Name Subscriber Id Effective Date Expiration Date AETNA [id number] MIRTA SOSA [id number] [employer] [id number] MIRTA SOSA [id number] [facility] [employer] (DO NOT USE) [id number] MIRTA SOSA [id number] [employer] [id number] MIRTA SOSA [id number] [place] S[place]F [place] Self N/A
--- OUTSIDE RECORDS SUMMARY | 2022-10-22 01:05 | XMS_ITS | Continuity of Care Document ---
Author Name Unknown Address [address] [place] [address] Phone [facility] Address [address] [place] [address] Phone Care Team Providers Care Display Screen Fabricator Name Role Phone Huseyin Zazueta Primary Care Provider Candace Corley Attending Provider Steven Mejia Attending Provider [phone] Allergies, Adverse Reactions, Alerts Allergen Type Severity [...] a copy on file here at [facility]? No October 11, 2016 9:50am Pt has a Living Will? No March 11:10pm Do we have a copy on file here at [facility]? No October 11, 2016 9:50am Pt has a Power of Housing Coordinator? No 2009 11:10pm Do we have a copy on file here at [facility]? 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 Z11.51 discussion consult Pre Op [...] Date Discharge /Depart Date Provider(s) Departed Referred [facility] July 26, 2019 12:08am July 26, 2019 12:09am Candace Corley [facility] August 07, 2019 12:46pm August 07, 2019 1:32pm Steven Mejia MD Departed Physician/Provi shwetha [facility] April 14, 2020 10:20am April 14, 2020 10:32am Steven Mejia MD Departed Referred [facility] IDENTITY MANAGEMENT CONSULTANT April 14, 2020 10:21am April 14, 2020 10:22am Steven Mejia MD Departed Physician/Provi shwetha [facility] May 20, 2020 2:30pm May 20, 2020 2:38pm Steven Mejia MD Departed Physician/Provi shwetha [facility] June 05, 2020 1:07pm June 05, 2020 1:34pm Red Diane MD Departed Physician/Provi shwetha [facility] July 16, 2020 1:50pm July 16, 2020 2:10pm Red Diane MD [facility] July 21, 2020 6:31am July 21, 2020 [...] Address [address] [facility] [address] Contact Info. Home Phone: Payer Policy Id Coverage Id Subscriber's Name Subscriber Id Effective Date Expiration Date IZABELTNA [id number] MIRTA SOSA [id number] [employer]ES [id number] MIRTA SOSA [id number] [facility] [employer] (DO NOT USE) [id number] MIRTA SOSA [id number] [employer] [id number] MIRTA SOSA [id number] [place] Self N/A [...] on L. 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
--- OUTSIDE RECORDS SUMMARY | 2022-10-22 01:05 | XMS_ITS | Continuity of Care Document ---
Author Name Unknown Address [address] [place] [address] Phone [facility] Address [address] [place] [address] Phone Support Name Relationship Address Phone PAULINO PENNY Mother Unknown Medent, Conversion Attending Provider Unknown Cindy vailable Steven Mejia Attending Provider [facility] [place] [address] Huseyin Zazueta Primary Care Provider [facility] [place] [address] Referral, Self Referring Provider Unknown Unavail able [...] have a copy on file here at [facility]? No October 11, 2016 10:50am Pt has a Living Will? No March 12:10am Do we have a copy on file here at [facility]? No October 11, 2016 10:50am Pt has a Power of Assistant Operator? No 2009 12:10am Do we have a copy on file here at [facility]? 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 Colposcopy Encounters Encounter Location(s) Arrival/Admit Date Discharge/Depart Date Provider(s) Departed Physician/Prov ider Office Visit [facility] POULTRY TRIMMER April 10, 2019 12:00am April 10, 2019 Conversion Medent Departed Physician/Prov ider Office Visit [facility] POULTRY TRIMMER April 10, 2019 8:05am April 10, 2019 8:32am Steven Mejia MD Departed Physician/Prov ider Office Visit [facility] POULTRY TRIMMER June 12, 2019 3:28pm June 12, 2019 [...] available Insurance Providers Guarantor MIRTA SOSA Address [address] [place] [address] Contact Info. Home Phone: Payer Policy Id Coverage Id Subscriber's Name Subscriber Id Effective Date Expiration Date AETNA [id number] MIRTA SOSA [id number] Email Data Source [employer] [id number] MIRTA SOSA [id number] [facility] Email Data Source (DO NOT USE) [id number] MIRTA SOSA [id number] [employer] [id number] MIRTA SOSA [id number] [place] S[place]F [place]Y Self N/A [...] Choice Dentist Huseyin Zazueta MD Work Phone: [facility] Care [address] [facility] [address] Future Procedures Future procedure information is unavailable Future Medications Future medication information is unavailable Patient Instructions Dental Abscess Social History Smoking Status Status Date of Observation Smokes tobacco daily (finding) June 122019 4:25pm Observation Status Observation Response Date of Response Alcohol Use No February 15, 2017 7:44am alcohol intake frequency 0-2 drinks per day [facility] 2016 11:27am Substance/Street Drug Use No 2016 [...] 8:12am BMI (Body Mass Index) 24.9 kg/m2 [facility] 2018 8:12am Height 61.5 [in_i] June 12 3:39pm Weight 61.23 kg June 12 3:39pm BP Systolic 110 mm[Hg] 100-140 June 12 3:39pm BP Diastolic 62 mm[Hg] 50-85 June 12 3:39pm BMI (Body Mass Index) 25.0 kg/m2 Jeff li 2019 3:39pm
--- OUTSIDE RECORDS SUMMARY | 2022-10-22 01:05 | XMS_ITS | Continuity of Care Document ---
Author Name Unknown Address [address] [place] [address] Phone [facility] Address [address] [place] [address] Phone Care Team Providers Care Metal Alloy Scientist Name Role Phone Huseyin Zazueta Primary Care Provider Steven Mejia Attending Provider [phone] Huseyin Zazueta Attending Provider [phone] Candace Corley Attending Provider Allergies, Adverse Reactions, [...] Active 5 UNITS SC TID WITH MEALS 2016 6:34am Atorvastatin Active 40 MG PO BEDTIME [...] patients who consume Biotin. MAIN LAB, [address] [facility] [address] Advance Directives Advance Directive Response Recorded Date/ Time Does patient have an Advanced Directive? No March 12, 2010 11:10pm Do we have a copy on file here at [facility]? No October 11, 2016 9:50am Pt has a Living Will? No March 11:10pm Do we have a copy on file here at [facility]? No October 11, 2016 9:50am Pt has a Power of Clam Sorter? No 2009 11:10pm Do we have a copy on file here at [facility]? 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 Z11.51 discussion Reason for Visit HGSIL (high grade sq uamous intraepithelial lesion) on Pap smear of cervix Encounters Encounter Location(s) Arrival/Admit Date Discharge /Depart Date Provider(s) Departed Referred [facility] June 12, 2019 12:19am June 12, 2019 12:20am Steven Mejia MD Departed Physician/Provi shwetha Office Visit [facility]-Floyd burleson GRAIN COMMODITY MANAGER June 12, 2019 3:28pm June 12, 2019 4:01pm Steven Mejia MD Departed Referred [facility] June 27, 2019 7:00pm June 27, 2019 7:01pm Huseyin Zazueta [facility] GRAIN COMMODITY MANAGER July 11, 2019 1:37pm Laura Dick RN Departed Referred [facility] July 26, 2019 12:08am July 26, 2019 12:09am Candace Corley MD [facility] GRAIN COMMODITY MANAGER August 07, 2019 12:46pm August 07, 2019 1:32pm Steven Mejia MD Departed Physician/Provi shwetha [facility] GRAIN COMMODITY MANAGER April 14, 2020 10:20am April 14, 2020 10:32am Steven Mejia MD Departed Referred [facility] DISPENSARY ATTENDANT April 14, 2020 10:21am April 14, 2020 10:22am Steven Mejia MD Departed Physician/Provi shwetha [facility] GRAIN COMMODITY MANAGER May 20, 2020 2:30pm May 20, 2020 2:38pm Steven Mejia MD Recent Diagnosis Onset Date [...] available Insurance Providers Guarantor MIRTA SOSA Address [address] [place] [address] Contact Info. Home Phone: Payer Policy Id Coverage Id Subscriber's Name Subscriber Id Effective Date Expiration Date AETNA [id number] MIRTA SOSA [id number] [employer] [id number] MIRTA SOSA [id number] [facility] [employer] (DO NOT USE) [id number] MIRTA SOSA [id number] [employer] [id number] MIRTA SOSA [id number] [place] SELF PAY Self N/A [...] Date of Observation Smokes tobacco daily (finding) May 20, 2020 2:11pm Observation Status Observation Response Date of Response Alcohol Use No August 12, 2019 9:34am alcohol intake frequency 0-2 drinks per day [facility] 2019 9:34am Substance/Street Drug Use No August 12, 2019 9:34am Smoking Status Current every day smoker [facility] 2019 2:11pm Assigned Sex Female Vital Signs Vital Reading Result Reference Range Collection Date/Time Height 61.5 [in_i] June 12 3:39pm Weight 61.23 kg June 12 3:39pm BP Systolic 110 mm[Hg] 100-140 June 12 3:39pm BP Diastolic 62 mm[Hg] 50-85 June 12 3:39pm BMI (Body Mass Index) 25.0 kg/m2 Junuar 2019 3:39pm Body Temperature 98.2 [degF] 97.6-99.6 [...] 2019 1:25pm Height 61.5 [in_i] April 14 2 020 10:24am Weight 61.74 kg April 14 020 10:24am BP Systolic 112 mm[Hg] 100-140 April 14 2 020 10:24am BP Diastolic 62 mm[Hg] 50-85 April 14 020 10:24am BMI (Body Mass Index) 25.2 kg/m2 [facility] 2019 10:24am
--- OUTSIDE RECORDS SUMMARY | 2022-10-22 01:05 | XMS_ITS | Continuity of Care Document ---
Author Name Unknown Address [address] [place] [address] Phone [facility] Address [address] [place] [address] Phone Care Team Providers Care Automatic Embroidery Machine Tender Name Role Phone Huseyin Zazueta Primary Care Provider [phone] Steven Mejia Attending Provider Huseyin Zazueta Attending [...] intrauterine device Active 1 INHALER IY ONCE [facility] r 2018 8:12am Insulin Glargine (Lantus Solostar) [...] in patients who consume Biotin. MAIN LAB, [address] [place] [address] Advance Directives Advance Directive Response Recorded Date/ Time Does patient have an Advanced Directive? No March 12, 2010 11:10pm Do we have a copy on file here at [facility]? No October 11, 2016 9:50am Pt has a Living Will? No March 11:10pm Do we have a copy on file here at [facility]? No October 11, 2016 9:50am Pt has a Power of Steel Analyst? No 2009 11:10pm Do we have a copy on file here at [facility]? 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 Z11.51 discussion consult Reason for Visit HGSIL (high grade sq uamous intraepithelial lesion) on Pap smear of cervix HGSIL (high grade squamous intraepithelial lesion) on Pap smear of cervix Encounters Encounter Location(s) Arrival/Admit Date Discharge /Depart Date Provider(s) Departed Referred [facility] June 12, 2019 12:19am June 12, 2019 12:20am Steven Mejia MD Departed Physician/Provi shwetha Office Visit [facility] burleson CHURN OPERATOR June 12, 2019 3:28pm June 12, 2019 4:01pm Steven Mejia MD Departed Referred [facility] June 27, 2019 7:00pm June 27, 2019 7:01pm Huseyin Zazueta MD Registered Outpatient [facility] rn CHURN OPERATOR July 11, 2019 1:37pm Laura Dick , EDITH Departed Referred [facility] July 26, 2019 12:08am July 26, 2019 12:09am Candace Corley MD Registered Outpatient [facility] rn CHURN OPERATOR August 07, 2019 12:46pm August 07, 2019 1:32pm Steven Mejia MD Departed Physician/Provi [facility]etha [facility] CHURN OPERATOR April 14, 2020 10:20am April 14, 2020 10:32am Steven Mejia MD Departed Referred [facility] CONFERENCE SPECIALIST April 14, 2020 10:21am April 14, 2020 10:22am Steven Mejia MD Departed Physician/Provi shwetha [facility] CHURN OPERATOR May 20, 2020 2:30pm May 20, 2020 2:38pm Steven Mejia MD Departed Physician[facility]Provi [facility]URN OPER[facility] June 05, 2020 1:07pm June 05, 2020 1:34pm Red Diane MD Recent Diagnosis Onset Date [...] Insurance Providers Guarantor MIRTA Burger SOSA Address [address] [place] [id number] Contact Info. Home Phone: Payer Policy Id Coverage Id Subscriber's Name Subscriber Id Effective Date Expiration Date AETNA [id number] MIRTA SOSA [id number] [employer] [id number] MIRTA SOSA [id number] [facility] BLUE CROSS (DO NOT USE) [id number] MIRTA SOSA [id number] [employer] [id number] MIRTA SOSA [id number] [place] SELF PAY Self N/A Plan of Treatment I have discussed with her that the [...] 9:34am Smoking Status Current every day smoker [facility] 2019 2:11pm Assigned Sex Female Vital Signs Vital Reading Result Reference Range Collection Date/Time Height 61.5 [in_i] June 12 3:39pm Weight 61.23 kg June 12 3:39pm BP Systolic 110 mm[Hg] 100-140 June 12 3:39pm BP Diastolic 62 mm[Hg] 50-85 June 12 3:39pm BMI (Body Mass Index) 25.0 kg/m2 Jeff li 7th, 2020 3:39pm Body Temperature 98.2 [degF] 97.6-99.6 August [...] 14, 10:24am Weight 61.74 kg April 14 020 10:24am BP Systolic 112 mm[Hg] 100-140 April 14 2 020 10:24am BP Diastolic 62 mm[Hg] 50-85 April 14, 2 020 10:24am BMI (Body Mass Index) 25.2 kg/m2 [facility] 2019 10:24am
--- NOTE | 2022-10-22 09:56 | DI.MAMMO_ITS ---
Exam(s) MG MAMMO SCREEN CALL BACK UNI US BREAST RT LIMITED EXAM: MG MAMMO SCREEN CALL BACK UNI and U/S breast RT limited CLINICAL HISTORY: ASYMMETRIC DENSITY 9 X 8 MM, 4-5 CM FROM NIPPLE RT BREAST. TECHNIQUE: Craniocaudal and mediolateral oblique Full Field Digital Mammography views of the right b reast with Computer Aided Diagnosis followed by Tomosynthesis and right breast ultrasound. COMPARISON: Comparison is made with prior examinations. FINDINGS: Mammography/Tomosynthesis: Masses/Architectural Distortion: The area of concern is less prominent when compared to the prior exa mination. No discrete mass persists. There are no areas of architectural distortion is seen. Microcalcifictions: No suspicious pleomorphic-type are seen. Skin Thickening/Nipple Retraction: None. Limited right breast US: Echotexture: Normal appearance of the glandular tissue. Shadowing: No suspicious foci. Cyst: None. Solid lesions: None seen. Ductal dilation: None. IMPRESSION: 1. No evidence of malignancy is noted. 2. Unless there is more urgent need, follow-up screening mammography is recommended, as per [place] Cancer Society guidelines. 3. The findings were discussed with the patient on the date of the examination. BI-RADS Category 1 - Negative Breast Density - Category C - Heterogeneously dense Breast density Category C or D implies that the patient has dense breast tissue. Dense breast tissue can make it harder to find cancer on a mammogram. Dense breast tissue is also associated with an incr eased risk of breast cancer. This information about the result of the mammogram report was provided to the patient to raise their awareness. Use this report when you speak with the patient about their risks for breast cancer, which includes their family history. At that time, you may recommend additional screening tests (Ultrasoun d or MRI) as these tests may add significant information. A negative radiographic report should not delay biopsy if a dominant or clinically suspicious mass is present. Up to ten percent of cancers are not identified on mammography. A negative report may reinforce clinical impression. Adenosis and dense breasts may obscure an underlying neoplasm. False positive reports average 6 to 10%. Patient will receive a letter notifying them of these results.
== END 2022-10-22 01:07 ==
LOC: DI 00:48
PROVIDERS: PCP Nurse Practitioner Family; Visit Provider Nurse Practitioner Family
DX: R92.8 Other abnormal and inconclusive findings on diagnostic imaging of breast (principal)
CPT/HCPCS: 76642; 77063; 77067

== ENCOUNTER 2023-09-14 16:08 | Outpatient (CLI) | payer OTHER, SELFPAY ==
[2023-09-14 16:08] LABS: Hemoglobin A1C 8.1 % (<5.7)
== END 2023-09-14 16:09 | disposition home or self-care (01) ==
LOC: LBO 09-15 16:09
PROVIDERS: PCP Nurse Practitioner Family; Visit Provider Internal Medicine Endocrinology, Diabetes & Metabolism
DX: E10.65 Type 1 diabetes mellitus with hyperglycemia (principal)
CPT/HCPCS: 36415; 83036

== ENCOUNTER → 2023-10-17 02:22 | Outpatient (CLI) | payer OTHER, SELFPAY ==
--- NOTE | 2023-10-17 08:00 | DI.MAMMO_ITS ---
Exam(s) MAMMO SCREENING EXAM: MAMMO SCREENING CLINICAL HISTORY: screening,z12.39 TECHNIQUE: Bilateral full field digital CC and MLO mammographic images were obtained with 3D tomosyn thesis and utilizing computer aided detection (CAD). COMPARISON: Available for comparison. FINDINGS: Masses/Architectural Distortion: None seen. Microcalcifications: No suspicious pleomorphic-type are seen. Skin Thickening/Nipple Retraction: None. IMPRESSION: 1. No significant interval change with no specific features of malignancy noted. 2. Unless there is more urgent need, screening mammography is recommended, as per [place] Cancer Soc iety guidelines. BI-RADS Category 1 - Negative Breast Density - Category C - Heterogeneously dense Breast density category C or D implies that the patient has dense breast tissue. Dense breast tissue is very common and is not abnormal but dense breast tissue can make it harder to find cancer on a ma mmogram. Also, dense breast tissue may increase their breast cancer risk. This information about the result of the mammogram report was provided to the patient to raise their awareness. Use this report when you speak with the patient about their risks for breast cancer, which includes their family hist ory. At that time, you may recommend for more screening tests (Ultrasound or MRI) as they might be us eful based on their risk. A negative radiographic report should not delay biopsy if a dominant or clinically suspicious mass is present. Up to ten percent of cancers are not identified on mammography. A negative report may reinforce clinical impression. Adenosis and dense breasts may obscure an underlying neoplasm. False positive reports average 6 to 10%. Patient will receive a letter notifying them of these results.
== END ==
PROVIDERS: PCP Nurse Practitioner Family; Visit Provider Nurse Practitioner Family
DX: Z12.31 Encounter for screening mammogram for malignant neoplasm of breast (principal); R92.30 Dense breasts, unspecified
CPT/HCPCS: 77063; 77067

== ENCOUNTER 2023-12-28 15:26 | Outpatient (CLI) | payer OTHER, SELFPAY ==
[2023-12-28 15:46] LABS: COMMENT (LAB VIEW ONLY) 59.71 mg/dL; Microalb ug/mg Crea 2.3 ug/mg Cr
[2023-12-28 15:51] LABS: Hemoglobin A1C 8.5 % (<5.7)
== END 2023-12-28 15:27 | disposition home or self-care (01) ==
LOC: LBO 15:27
PROVIDERS: PCP Nurse Practitioner Family; Visit Provider Internal Medicine Endocrinology, Diabetes & Metabolism
DX: E10.65 Type 1 diabetes mellitus with hyperglycemia (principal)
CPT/HCPCS: 36415; 82043; 82570; 83036

== ENCOUNTER 2024-05-02 15:10 | Outpatient (CLI) | payer OTHER, SELFPAY ==
--- OUTSIDE RECORDS SUMMARY | 2024-05-02 15:17 | XMS_ITS | Clinical Summary ---
Author Organization [facility] Address [address] [place] [address] Care Team Providers Care Animal Impersonator Name Role Phone Huseyin Zazueta MD Primary Care Provider [phone] Allergies Active Allergy Reactions Criticality Noted Date Comments Insulin Detemir Swelling,Other (See Comments) 05/20/2010 Swelling and bruising and itching at site of injection Medications acetaminophen (TYLENOL) 325 mg tablet Take 1-2 Tabs by mouth every 4 hours. 4 Active ibuprofen (MOTRIN) 400 mg tablet Take 1 Tab by mouth every 4 hours as needed for Pain. 4 Active insulin pen needles 31G x 5/16 (BD INSULIN PEN NEEDLE UF SHORT) Use 5 pen needles as directed daily. 500 Each 3 8 Active ACCU-CHEK POLI PLUS METER Use as directed as needed (glucose monitoring). 1 Each 9 Active ketone urine reagent strip (KETOSTIX) Use 1 Strip as directed as needed (hyperglycemia) . if BG is greater than 250 (for 2 consecutive readings), if ill, and/or if vomiting. 50 Each 3 0 Active blood glucose (ACCU-CHEK POLI PLUS TEST STRP) test stripsIndication s:Type 1 diabetes mellitus with hypoglycemia and without coma (HCC-CMS) Use 4 Strips as directed daily. E10.65 400 Each 3 1 Active atorvastatin (LIPITOR) 10 mg tabletIndication s:Type 1 diabetes mellitus with hypoglycemia and without coma (HCC-CMS) Take 1 Tablet by mouth daily. 90 Tablet 3 2 Active glucagon 1 mg/0.2 mL auto-injectorInd ications:Type 1 diabetes mellitus with hypoglycemia and without coma (HCC-CMS) Inject 1 mg into the skin as needed (hypoglycemia). 0.4 mL 1 2 Active insulin glargine,hum.rec .anlog (BASAGLAR KWIKPEN) 100 unit/mL (3 mL) subcutaneous pen Inject into the sin 22-30 units at bedtime. For insulin pump failure 15 mL 3 2 Active insulin pump cart,automated,B T (OMNIPOD 5 G6 PODS, GEN 5,) cartridgeIndicat ions:Type 1 diabetes mellitus with hypoglycemia and without coma ([facility]) Inject 1 Cartridge into the skin every 72 hours. E10.9 Insulin Dependent 30 Each 3 2 Active insulin pump controller (OMNIPOD DASH PDM KIT, GEN 4,) misc 1 Each by misc (non-drug; combo route) route continuous. 1 Each 2 Active insulin pump cart,cont inf,BT (OMNIPOD DASH PODS, GEN 4,) cartridge Inject 1 Each into the skin continuous. Change every 72 hours. 30 Each 3 2 Active insulin pump cart,auto,BT-cnt r (OMNIPOD 5 G6 INTRO KIT, GEN 5,) cartridgeIndicat ions:Type 1 diabetes mellitus with hypoglycemia and without coma ([facility]) Use 1 Cartridge as directed continuous. E10.9 Insulin Dependent 1 Each 2 Active Active Problems Problem Noted Date Diagnosed Date Pure hypercholesterolemia 05/20/2011 Type 1 diabetes mellitus ([facility]) 02/18/2010 Overview (02/18/2010): JOHNNY (+) Smoker 02/18/2010 Overview (05/26/2013): Prior 06/07 ppd Interested in smoking study, signed form. Assessment & Plan (07/02/2013 15:12 EST): Contacted from study; has cut down to 2-3 cigs down Resolved Problems Problem Noted Date Diagnosed Date Resolved Date uterine contractions, antepartum 07/09/2013 11/04/2013 Threatened labor, antepartum 06/22/2013 11/04/2013 Overview (06/22/2013): Passed mucus plug, felt pressure @ 25 weeks. SVE: closed /50%, developed MARLO FFN neg. S/p BMZ x 2 started on 06/18/13. Assessment & Plan (07/20/2013 10:08 EST): SVE today closed/50 (multiparous). Assessment & Plan (07/09/2013 13:43 EST): Stable SVE today, Closed/50/floating/medium consistency. S/p BMZ 06/18-. Assessment & Plan (07/02/2013 15:18 EST): Pressure, no contrax srom check: no pool, equiv nitro, neg fern; cx 2 cm long/closed/high no MARLO development and no presenting part palp Assessment & Plan (06/27/2013 16:12 EST): Pt notes intermittent contractions -- increased frequency depending on activity. SVE --> closes/50/soft/post/-3 A/P Cervix is unchanged -- no evidence of PTL. Plan: OK to return to work. Assessment & Plan (06/22/2013 9:19 EST): Passed mucus plug, felt pressure @ 25 weeks. SVE: closed /50%, developed MARLO FFN neg. S/p BMZ x 2 started on 06/18/13. Supervision of other high-risk 02/15/2013 11/04/2013 Overview (03/06/2015): TYPE 1 DM (MFM/ENDOCRINE- ? Transition to pump) Dating: LMP c/w 7+6 week scan PN labs: Rh O+ /Ab screen neg/Rubella imm/Varicella imm/HepB neg/HepC not done/HIV neg/RPR NR Pap: 03/2012 ASCUS with Neg HPV. Next due 2014. G/C: Urine cx: neg Screening: CF declined Ultrascreen declined Quad Markers declined Vaccines: [ X ] Flu vaccines [ ] TDaP @ 32 weeks.-08/31 Scans: [ X ] Anatomy: detailed WNL [ X ] echo nl [ ] Growth Scans: 26 weeks: 13%, MELIA 16 30 weeks: 15%, MELIA 12 BREECH 34 weeks: 27%, MELIA 14, Cephalic [ X ] CBC 06/18 Hct = 35.8 [ x ] GBS + 07/06/13 Allergies? Levemir [ X ] Contraception: Desires peripartum BTL, papers signed 07/20/13. [ X ] 24 hr urine protein baseline: 185 S/P BMZ on 06/18/13 for concerning SVE. ICD10 Update Auto Replacement Assessment & Plan (08/31/2013 12:41 EDT): tdap given Assessment & Plan (08/17/2013 13:14 EDT): Discussed growth scan today, 27%, cephalic. Discussed IOL @ 39 weeks unless otherwise indicated earlier. GBS positive prior swab. Signed peripartum BTL papers. Assessment & Plan (08/03/2013 10:28 EST): Pt concerned re leaking and for ? SROM. SSE negative, neg fern, neg pool. SVE deferrred. Has MELIA today and NST. Recently Breech, good candidate for version if EFW remains normal, multip, post placenta. RH +. Assessment & Plan (07/20/2013 9:45 EST): Desires peripartum BTL, papers signed 07/20/13. Growth scan today: 15%, MELIA 12 BREECH. Assessment & Plan (07/09/2013 13:43 EST): PNL UTD. Last growth U/S on L&D final report pending, but AGA. Next growth for 30wks. S/p flu vac. Discussed TDap in future visit. Still feeling pelvic pressure and cramping, SVE today Closed/50/floating/medium consistency. Assessment & Plan (07/02/2013 15:10 EST): No contrax, increased pressure; underwear damp; GFm, no bleeding Planning on staying on lantus for now Assessment & Plan (06/22/2013 14:20 EST): Growth scan done on L&D this week, report not back. Ordered growth scans q 4 weeks for the remainder of SVE today unchanged from priorexam. Assessment & Plan (05/26/2013 12:05 EST): Anatomy: detailed WNL echo: ordered for 23 weeks (scheduled for 06/07/13). Had declined aneuploidy screening. CBC @ 26 weeks. Will need growth q 4 weeks s/p 28 weeks. Assessment & Plan (04/27/2013 16:42 EST): Has detailed scheduled for 20 weeks. echo scheduled. Assessment & Plan (04/06/2013 14:40 EDT): MFM attending S: She is complaining of spotting dark brown blood. She says her uterus is generally uncomfortable, but denies urinary pain or frequency. She notes taking a fall a week or so ago. O: See vitals On speculum exam, her cervix did not appear friable, and there was dark brown stained mucous at the os. A: IUP at 15w0d with diabetes Spotting brown discharge. P: I discussed that dark brown spotting represents old blood, generally from placental bleeding. It could be evidence of previa or an abruption but was not a recent bleed. Bleeding increases her risk of IUGR, but she will already get frequent growth scans, so there is no change in management. I will get a limited scan today to assess placenta for previa. Assessment & Plan (04/03/2013 13:57 EDT): Presents today with pelvic pressure and discomfort. Achy and sore. UA from [facility] yesterday negative, culture pending. Bimanual: closed, long, multiparous. Uterus tender with manipulation, likely ligament. Freely mobile and anteverted. Discussed chorioamnionitis precautions. Assessment & Plan (03/30/2013 9:25 EDT): Doing well, no current complaints. Detailed and echo scheduled. Has declined all aneuploidy screening. Assessment & Plan (03/02/2013 9:42 EDT): Reviewed labs with her, all normal. Discussed upcoming ultrasounds. Revisited aneuploidy screening, declines all testing. Diabetes mellitus in 02/15/2013 11/04/2013 Overview (08/31/2013): Type 1 DM, follows with Endocrine. Scans per supervision of . Eye exam- November 27 hr urine done No htn 07/02/13 Lantus 25 am Novolog 1:7 08/02/13 Lantus 32 U QAM, Novolog 1:7 (breakfast/lunch), 1:6 (dinner). Correction: 1:30. NSTs/fluid checks ordered for 32 weeks. Patient aware. Pump started 08/17 [facility] pump/pt agreement signed and placed in scanned media. Induction 09/21 - booking sheet sent to L+D.08/31 Assessment & Plan (08/31/2013 12:40 EDT): Pump started 08/17 [facility] pump/pt agreement signed and placed in scanned media. All testing ordered. Induction set for 18- 39 wks Assessment & Plan (08/17/2013 13:15 EDT): Still adjusting to Pump start. Pump still filled with saline, hopes will change to insulin in upcoming few weeks. Managed per Endo. Assessment & Plan (08/03/2013 10:31 EST): NSTs and fluid checks. Growth q 4 weeks ordered. Saw Endo on 07/31/13, additional modifications made. Current regimen: Lantus 32 U QAM, Novolog 1:7 (breakfast/lunch), 1:6 (dinner). Correction: 1:30. Assessment & Plan (07/20/2013 10:07 EST): NSTs/fluid checks ordered for 32 weeks. Patient aware. Growth q 4 weeks. Today, EFW 15%, MELIA 12. Has still been working with [employer] to get a pump set up. Following with Endo. Assessment & Plan (07/09/2013 13:42 EST): Continues on Lantus 25U am and Novolog 1:7. Feels like FSG have stabilized at this point, s/p BMZ 06/18/2013. Assessment & Plan (07/02/2013 15:11 EST): FBS running 100; 2 hr PP 140-60; will see endo today Assessment & Plan (06/22/2013 9:23 EST): Sugars have been poorly controlled since BMZ shots earlier this week. Seen on L&D yesterday for decreased FM and elevated glucoses and + ketones on urine dip. Fasting today 200 but mid 100s all day yesterday. Planning on talking to Endo today about another dose in PM for the next few days. Assessment & Plan (05/26/2013 12:06 EST): Type 1 DM follows with Endocrine. States control is good. Planning on starting a pump but having insurance issues. Assessment & Plan (04/27/2013 16:43 EST): Will be trying a pump. Hasn't had one in a long time. Saw Endocrine. Fingersticks somewhat brittle sounding. Hopes that pump helps. Assessment & Plan (04/06/2013 14:36 EDT): She stated her sugars are the best they have been since diagnosis and that Endocrinology is managing them. Assessment & Plan (03/30/2013 9:15 EDT): Type 1 DM, following with endocrine. No longer having dramatic lows, feels much more stable than she was previously. Follows with Dr Manriquez. Doesn't have log for me today but states reasonable control. Assessment & Plan (03/02/2013 9:43 EDT): Following with endocrine at [facility]. Has adjusted carb/insulin ration over the past week as had several profound lows last week (20s). Plans to continue to work with them re- optimizing control. Immunizations Name Administration Dates Next Due Influenza Vaccine =>3yo Split Preservative Free IM 03/30/2013 Tdap Vaccine =>7YO IM 08/31/2013 Surgical History Surgery Date Site/Laterality Comments WISDOM TOOTH EXTRACTION Medical History Medical History Date Comments Kidney stones ??? hematuria & adbominal pain Diabetes mellitus ([facility]) 2008 eye exam annually Family History Medical History Relation Comments High Blood Pressure Mother Diabetes Sister Relation Status Comments Daughter 1 Alive Daughter 2 Alive Father Mother Alive Sister Alive Son Alive Social History Tobacco Use Types Packs/Day Years Used Date Smoking Tobacco: Every Day Cigarettes Smokeless Tobacco: Current Tobacco Cessation:Ready to Q uit: No; Counseling Given: Yes Alcohol Use Standard Drinks/Week Comments No 0 (1 standard drink = 0.6 oz pur e alcohol) occasional Interpersonal Safety Answer Date Record ed Physically Hurt Never 01/06/2020 Verbally Threaten Not on file 01/06/2020 Comments No Sex and Gender Information Value Date Recorded Sex Assigned at Not on file Legal Sex Female 18:29 EST Gender Identity Not on file Sexual Orientation Not on file Obstetrics History Para Term AB IAB SAB Ectopic Multiple Livin g Live Births 6 4 4 2 1 1 4 4 Date Outcome GA Total Labor Labor/2nd/3rd Weight Sex Type Anes PTL Camryn A1 A5 Name Clin 1998 Term 40w 0d 3005 g (6 lb 10 oz) F Vag-S pont Livin g 1999 IAB 2002 Term 40w 0d 2920 g (6 lb 7 oz) F Vag-S pont Livin g 2003 SAB 2005 Term 40w 0d 2892 g (6 lb 6 oz) M Vag-S pont Livin g 2013 Term 37w 0d 2640 g (5 lb 13.1 oz) M CS-LT ranv Spinal Y Livin g 6 9 [facility] Delivery Location:[facility] Comments:NRFA Last Filed Vital Signs Vital Sign Reading Time Taken Comments Blood Pressure 113/66 12/17/2020 1021 EDT Pulse 81 12/17/2020 1021 EDT Temperature 36.8 ??C (98.2 ??F) 09/07/2013 1900 EDT Respiratory Rate 18 09/07/2013 1900 EDT Oxygen Saturation 99% 09/07/2013 1612 EDT Inhaled Oxygen Concentration - - Weight 59.5 kg (131 lb 3.2 oz) 12/17/2020 1021 E DT Height 157.5 cm (5' 2.01) 12/17/2020 1021 EDT Body Mass Index 23.99 12/17/2020 1021 EDT Plan of Treatment Health Maintenance Due Date Last Done Comments Pneumococcal Immunization (1 of 2 - PCV) 1986 Hepatitis B Vaccine (1 of 3 - 19+ 3-dose series) 11/30/1999 Foot Exam 05/09/2013 05/09/2012 Lipid Profile Screening (Cholesterol) 03/12/2020 03/12/2019, 01/12/2017, 12/02/2015, Additional history exists Microalbumin/Creatinine Ratio 03/12/2020, 01/12/2017, 12/02/2015, Additional history exists Hemoglobin A1C (Ha1C) 06/19/2021 12/17/2020 , 12/17/2020, 03/20/2019, Additional history exists Eye Exam 09/09/2022 09/09/2021, 03/07, 12/22/2015, Additional history exists COVID-19 Vaccine (2023-2 5 season) 2024 Hepatitis C Screen Completed 10/13/2022 Procedures Procedure Name Priority Date/Time Associated Diagnosis Comments HEPATITIS C AB W REFLEX TO HCV RNA BY PCR Routine 10/13/2022 7:52 EDT POCT HEMOGLOBIN A1C, INTERFACED Routine 12/17/2020 10:28 EDT Type 1 diabetes mellitus with hypoglycemia and without coma (HCC-CMS) LIPID PROFILE (INCLUDES CHOLESTEROL, TRIGLYCERIDES, HDL, LDL) Routine 03/12/2019 15:56 EDT Type 1 diabetes mellitus with hyperglycemia (HCC-CMS) URINE [id number] NE RATIO (ACR) Routine 03/12/2019 15:56 EDT Type 1 diabetes mellitus with hyperglycemia (HCC-CMS) DM FOOT EXAM Routine 05/09/2012 DM EYE EXAM Routine 11/24/2011 from Last 3 Months or Most Recently Relevant to Health Maintenance Results * HEPATITIS C AB W REFLEX TO HCV RNA BY PCR (10/13/2022 7:52 EDT) Hep C Antibody Negative Negative 10/14/2022 9:[address] [facility] Blood VENOUS BLOOD / Unknown 10/13/2022 7:52 EDT 10/13/2022 17:22 EDT us Provider Outr Resulting Lab CHEMISTRY & BLOOD GA S ORDERABLES Final Result Performing Organization Address City/[facility]/ZIP Co de Phone Number [facility] [address] [place] [address] * (ABNORMAL) POCT HEMOGLOBIN A1C, INTERFACED (12/17/2020 10:28 EDT) Pathologist [facility] Hemoglobin A1c, POC 9.5(H) <5.7 % 12/17/2020 10:[address] [facility] Blood VENOUS BLOOD / Unknown 12/17/2020 10:28 EDT 12/17/2020 10:[address] [facility] - 12/17/2020 10:51 EDT For Hgb A1c values => 10%, a venous blood measurement in the main laboratory for confirmation is available. Reference Range: <5.7% Normal 5.7-6.4% Prediabetes =>6.5% Diagnostic for diabetes (if confirmed). Goals for glycemic control in diabetes ADA 2017. For non adults with diabetes: Target <7.0% For children and adolescents with type 1 diabetes: Target <7.5% More or less stringent targets may be appropriate for individual patients. Test performed at Endocrinology. Kaley Lopez NP POINT OF CARE TEST ORDERABL ES Final Result [facility] [address] [place] [address] * ALBUMIN, URINE (03/12/2019 15:56 EDT) Creatinine, Urn [place] 72.5 mg/dl 03/12/2019 23:[address] [facility] Ur Albumin mg/dl <0.6 mg/dL 03/12/20 23:52 [facility] Comment:New Ctrips 5600 Meth odology in use 10/05/2017 Urine Albumin to Creatinine Ratio <8.3 ug/mg Crea 03/12/2019 23:52 [facility] Comment: Normal: <30 ug/mg creatinine Moderately increased albuminuria: 30-300 ug/mg creatinine Severly increased albuminuria: >300 ug/mg creatinine New Vitros 5600 Methodology in use 10/05/2017 Urine specimen (specimen) URINE / Unknown 03/12/2019 15:56 EDT 03/12/2019 19:47 EDT Jeb Daigle MD CHEMISTRY & BLOOD GAS TOO PATEL Final Result Performing Organization Address City/State/[facility] Co de Phone Number [facility] [address] [place] [id number] * LIPID PROFILE (INCLUDES CHOLESTEROL, TRIGLYCERIDES, HDL, LDL) (03/12/2019 15:56 EDT) Cholesterol 178 mg/dl 03/12/2019 20:19 [facility] Comment: Desirable:<200 Borderline High:200-239 High:>fj=334 Triglycerides 113 mg/dl 03/12/2019 20:19 [facility] Comment: Normal:<150 Borderline High:150-199 High:200-499 Very High:>bi=248 HDL 57 mg/dl 03/12/2019 20:19 [facility] Comment: Low:<40 Normal:40-60 Desirable: >60 LDL, Calculated 98 mg/dl 9 20:19 [facility] Comment: Optimal:<100 Near Optimal:100-129 Borderline High:130-159 High:160-189 Very High:>jp=029 Chol/HDL Ratio 3.1 03/12/2019 20:19 [facility] Fasting? Unknown 03/12/2019 20:19 [facility] Non HDL Cholesterol 121 mg/dl 03/12/2019 20:[address] [facility] Comment: Desirable:<130 Borderline:130-159 High: 160-189 Very High: >lt=550 Blood specimen (specimen) BLOOD SPECIMEN / Unknown 03/12/2019 15:56 EDT 03/12/2019 19:47 EDT us Jeb Daigle MD CHEMISTRY & BLOOD GAS ORDE [facility] Final Result [facility] [address] [place] [address] * DM FOOT EXAM (05/09/2012) DM Foot Exam [facility] DM Foot Exam, External [facility] Historical Provider MD PROCEDURE/MINOR SURGICAL ORDERABLES Final Result [facility] * DM EYE EXAM (11/24/2011) DM Eye Exam EXTERNAL FACILITY DM Eye Exam, External EXTERNAL FACILITY us Historical Provider MD PROCEDURE/MINOR SURGICAL ORDERABLES Final Result EXTERNAL FACILITY from Last 3 Months or Most Recently Relevant to Health Maintenance Insurance [address] [address] Advance Directives For more information, please contact: [phone] * Full Code (Latest Code Status on File) Date Activated Date Inactivated Comments 09/07/2013 19:14 09/08/2013 1:18 * Full Code Date Activated Date Inactivated Comments 09/07/2013 10:21 09/07/2013 19:14 * Full Code Date Activated Date Inactivated Comments 09/04/2013 11:25 09/04/2013 18:55 * Full Code Date Activated Date Inactivated Comments 08/07/2013 10:54 08/07/2013 15:11 * Full Code Date Activated Date Inactivated Comments 06/20/2013 11:44 06/20/2013 18:04 Care Teams Animal Impersonator Relationship Specialty Start Date End Date Huseyin Zazueta MD [address] [place] [id number] PCP - General 07/16/09
--- OUTSIDE RECORDS SUMMARY | 2024-05-02 15:17 | XMS_ITS | Encounter Summary ---
Author Organization [facility] Address [address] [place] [address] Care Team Providers Care Cheese Cooker Name Role Phone Huseyin Zazueta MD Primary Care Provider Reason for Visit * Reason Comments Medications Refill Encounter Details Date Type Department Care Team (Late st Contact Info) Description 03/16/2023 Refill [facility] Endocrinology - [facility] [address] [place] [address] Kaley Lopez, CHERYLE [address] [facility] [address] [place] [address] Medications Refill Social History Tobacco Use Types Packs/Day Years Used Date Smoking Tobacco: Every Day Cigarettes Smokeless Tobacco: Current Alcohol Use Standard Drinks/Week Comments No 0 (1 standard drink = 0.6 oz pur e alcohol) occasional Interpersonal Safety Answer Date Record ed Physically Hurt Never 01/06/2020 Verbally Threaten Not on file 01/06/2020 Comments No Sex and Gender Information Value Date Recorded Sex Assigned at Not on file Legal Sex Female 18:29 EST Gender Identity Not on file Sexual Orientation Not on file documented as of this encounter Functional Status * Because of a physical, mental, or emotional condition, does this person have difficulty doing errands alone such as visiting a doctor's office or shopping? Answer Date of Assessment Author No 08/23/2017 8:59 EDT documented as of this encounter Mental Status * Because of a physical, mental, or emotional condition, does this person have serious difficulty concentrating, remembering, or making decisions? Answer Entry Date Author No 08/23/2017 8:59 EDT documented in this encounter Miscellaneous Notes * Telephone Encounter - Nayely Rodriguez RN - 03/21/2023 0913 EDT Refusing script. Nayely Rodriguez RN * Telephone Encounter - Brigid Estrella - 03/19/2023 0909 EDT Called and spoke with patient. Pt is using another clinic for her diabetic care. Please reject request. documented in this encounter Plan of Treatment Not on file documented as of this encounter Visit Diagnoses Diagnosis Type 1 diabetes mellitus with hypoglycemia and without coma ([facility] Primary Type I (juvenile type) diabetes mellitus with other specified manifestations, not stated as uncontrolled documented in this encounter Care Teams Cheese Cooker Relationship Specialty Start Date End Date Huseyin Zazueta MD [address] [place] [address] PCP - General 07/16/09 documented as of this encounter
--- OUTSIDE RECORDS SUMMARY | 2024-05-02 15:17 | XMS_ITS | Continuity of Care Document ---
Author Organization [facility] Address [address] [place] [id number] Care Team Providers Care Clinical Lab Clerk Name Role Phone Fadi Cortez Primary Care Physician [phone] Encounter [facility] [id number] Date(s): 09/19/23 - 09/19/[address] [address] Encounter Diagnosis Uncontrolled type 1 diabetes mellitus with hyperglycemia(Discharge Diagnosis) - 09/18/23 Discharge Disposition: Home or Self Care Attending Physician: Giovanny Hair MD Allergies, Adverse Reactions, Alerts Substance Criticality Severity Reaction Reaction Severity Status insulin detemir High criticality Severe Active Assessment and Plan Future Appointments Functional Status 09/19/23 COVID-19 Screening None Recent Travel History No recent travel Medications Albuterol (Eqv-ProAir HFA) 90 mcg/inh inhalation aerosol 0 Refill(s) Start Date: 04/25/23 Status: Ordered atorvastatin 20 mg oral tablet 1,5, Oral, Daily, 1.5 tablet Start Date: 04/25/23 Status: Ordered Gvoke HypoPen Two Pack 1 mg/0.2 mL subcutaneous solution See Instructions, Inject 1 mg for Severe Hypoglycemia, not responding to ohter messages, patient unable to treat, or patient unresponsive. may repeat once in 15 minutes, # 1 EA, 3 Refill(s), [facility], 154.94, cm, 06/27/23 8:17:00 EST, Height, 59, kg, 06/27/23 8:23:00 EST, Weight Dosing Start Date: 06/27/23 Status: Ordered insulin aspart 100 units/mL injectable solution 10 units =, Subcutaneous, BID(AC), # 3 mL, 0 Refill(s) Start Date: 04/25/23 Status: Ordered [facility] Dexcom G6 Sensor, Dexcom G6 Transmitter, Dexcom G6 Transmitter device, Glucagon Emergency Kit, See Instructions, 0 Refill(s) Start Date: 04/25/23 Status: Ordered [facility] Keto Diastix, Omnipod 5 G6 Intro Kit, Omnipod 5 G6 Pods,, See Instructions, 0 Refill(s) Start Date: 04/25/23 Status: Ordered Problem List Condition Confirmation Course Effective Dates Status Health St atus Informant Abnormal cervical Papanicolaou smear Confirmed Active Adenomatous polyp of colon Confirmed Active Depressive disorder Confirmed Active Nicotine dependence Confirmed Active Pain of left shoulder joint on movement Confirmed Active Type 1 diabetes mellitus Confirmed Active Vital Signs Most recent to oldest [Reference Range]: 1 Peripheral Pulse Rate [60-100 bpm] 87 bp m (09/19/23 7:53 AM) Respiratory Rate [12-24 br/min] 18 br/mi n (09/19/23 7:53 AM) Blood Pressure [90-140/60-90 mmHg] 110/6 4mmHg (09/19/23 7:53 AM) Weight Measured (lbs) 125.002 lb (09/19/23 7:53 AM) Weight Dosing 56.700 kg (09/19/23 7:53 AM) [place] Body Weight Calculated 47.8 kg (09/19/23 7:53 AM) Height/Length Measured (inches) 61 inch (09/19/23 7:53 AM) BSA Measured 1.56 m2 (09/19/23 7:53 AM) Body Mass Index 23.62 kg/m2 (09/19/23 7:53 AM) Height 154.94 cm (09/19/23 7:53 AM) Weight 56.70 kg (09/19/23 7:53 AM) Social History Social History Type Response Tobacco Current everyday tob acco user Tobacco Use:. Pack a day per day. Sex Female Discharge instructions * Giovanny Hair MD: PERFORM Event Display: Discharge Instructions Authored Date: [id number] MIRTA SOSA :1980 Age:42 years Sex:Female Visit Date:09/19/2023 Primary Care Physician: Fadi Cortez Ambulatory Visit Instructions We would like to thank you for allowing us to assist you with your healthcare needs. The following includes patient education materials and information regarding your injury/illness. Your Next Steps Instructions From Your Care Team Diagnostic Studies:?? Labs, Others: 1.?? Go for?? labs?? 1 to 2 weeks before next visit?? A1c?? and urine MA/Crea ?? Care of Diabetes Mellitus Type 1: ??1. Healthy Eating Habits ----Limited Carbohydrate (count grams carefully) ----LImited Saturated Fat ----No added salt ----more Fiber --?? FOCUS ON DETAILS?? Carbo Counts.?? Weigh Measure.?? Later may adjust Carbo Ratio ? time 4 Pm to?? 12 MN ? Keep Log book on focused days. and bring to visit. 2. Exercise: ----Remain Active? More regular ----Move: Walk, bicycle, hike, swim, garden, treadmill, yardwork, mow lawn, ----Lift: Light weights 1, 2, or 3#, Use stairs carefully, Carry Groceries, Put away groceries, yard work (carry stuff), gym ----Stretch: from neck to ankles, 3. DM Meds 4. Insulin Plan for Pump BOLUS INSULIN carbo ratio 1/6, am 15 in Pm correction target 110 -120 correct > 130 typica 0 for omlet 2 -5 at lunch 5 to 8 auppwe. ?? BASAL 20 u per day 12 -3 0.45 3 - 12 0.85 12 - 24 0.95 ?? 5. Monitor with BG Meter Trouble check HIgh, ansd Low Random ?? 6. Email monthly , then two days pre visit. Comments: ? Overview,?? Overlay,?? Daily?? 30 day. Discussion Notes .clarity 14 day email [email or web address] LABS: --A1c 3 months ---Chem, Lipid, TSH, urine microAlbumin/creat yearly ---Eye Exam dilated ---- Yearly Medications What How Much When Instructions Unchanged albuterol (Albuterol (Eqv-ProAir HFA) 90 mcg/ inh inhalation aerosol) Unchanged atorvastatin (atorvastatin 20 mg oral tablet) 1,5 Oral (given by mouth) Every day 1.5 tablet ?? Unchanged Durable Medical Equipment for Prescription ([facility]) See Instructions Dexcom G6 Sensor, Dexcom G6 Transmitter, Dexcom G6 Transmitter device, Glucagon Emergency Kit ?? Unchanged Durable Medical Equipment for Prescription ([facility]) See Instructions Keto Diastix, Omnipod 5 G6 Intro Kit, Omnipod 5 G6 Pods, ?? Unchanged glucagon (Gvoke HypoPen Two Pack 1 mg/ 0.2 mL subcutaneous solution) See instructions Inject 1 mg for Severe Hypoglycemia, not responding to ??ohter messages, ??patient unable to treat,or patient unresponsive. may repeat once in 15 minutes ?? Unchanged insulin aspart (insulin aspart 100 units/ mL injectable solution) 10 Units Subcutaneous (under the skin) 2 times a day (before meals) Your Summary Your Diagnosis Uncontrolled type 1 diabetes mellitus with hyperglycemia Problems Ongoing - Any problem that you are currently receiving treatment for. Abnormal cervical Papanicolaou smear Adenomatous polyp of colon Depressive disorder Nicotine dependence Pain of left shoulder joint on movement Type 1 diabetes mellitus Your Care Team Attending Physician - Giovanny Hair MD Primary Care Physician - Fadi Cortez Discharge Vitals Heart Rate??(Peripheral) 87 Respiratory Rate?? 18 Blood Pressure?? 110/64?? SpO2?? 96% Height?? 61.00 in (154.94 cm) Weight?? 125.02 lb (56.70 kg) BMI?? 23.62 Allergies insulin detemir Electronically Signed on: 09/19/2023 08:47 AM EDT Signed by:LOREE Patient Care team information Care Team Personnel Name: Fadi Cortez Position: No Access Member Role: Primary Care Physician Address: Address: [facility] [address] [place] [address]- Care Team Related Persons Name: TESSA FRANCO
--- OUTSIDE RECORDS SUMMARY | 2024-05-02 15:17 | XMS_ITS | Referral Summary ---
Author Organization [facility] Address [address] [place] [address] Care Team Providers Care It Systems Manager Name Role Phone Huseyin Zazueta MD Primary Care Provider [phone] Allergies Active Allergy Reactions Criticality Noted Date [...] without coma ([facility]) Use 1 Cartridge as directed continuous. E10.9 [...] discomfort. Achy and sore. UA from [facility] yesterday negative, culture pending. Bimanual: closed, [...] 32 weeks. Patient aware. Pump started 08/17 [facility] pump/pt agreement signed and placed in scanned [...] (03/02/2013 9:43 EDT): Following with endocrine at [facility]. Has adjusted carb/insulin ration over the past week as had several profound lows last week (20s). Plans to continue to work with them re- optimizing control. Immunizations Name Administration Dates Next Due Influenza Vaccine =>3yo Split Preservative Free IM 03/30/2013 Tdap Vaccine =>7YO IM 08/31/2013 Social History Tobacco Use Types Packs/Day Years [...] on file Sexual Orientation Not on file Last Filed Vital Signs Vital Sign Reading [...] Body Mass Index 23.99 12/17/2020 1021 EDT Functional Status * Because of a physical, mental, or emotional condition, does this person have difficulty doing errands alone such as visiting a doctor's office or shopping? Answer Date of Assessment Author No 08/23/2017 8:59 EDT Mental Status * Because of a physical, mental, or emotional condition, does this person have serious difficulty concentrating, remembering, or making decisions? Answer Entry Date Author No 08/23/2017 8:59 EDT Plan of Treatment Not on file Procedures Procedure Name Priority Date/Time Associated Diagnosis Comments HEPATITIS C AB W REFLEX TO HCV RNA BY PCR Routine 10/13/2022 7:52 EDT POCT HEMOGLOBIN A1C, INTERFACED Routine 12/17/2020 10:28 EDT Type 1 diabetes mellitus with hypoglycemia and without coma (HCC-CMS) LIPID PROFILE (INCLUDES CHOLESTEROL, TRIGLYCERIDES, HDL, LDL) Routine 03/12/2019 15:56 EDT Type 1 diabetes mellitus with hyperglycemia ([facility]) URINE [id number]-CH-[id number] NE RATIO (ACR) Routine 03/12/2019 15:56 EDT Type 1 diabetes mellitus with hyperglycemia ([facility]) DM FOOT EXAM Routine 05/09/2012 DM EYE EXAM Routine 11/24/2011 from Last 3 Months or Most Recently Relevant to Health Maintenance Results * HEPATITIS C AB W REFLEX TO HCV RNA BY PCR (10/13/2022 7:52 EDT) Hep C Antibody Negative Negative 10/14/2022 9:37 EDT [facility] Blood VENOUS BLOOD / Unknown 10/13/2022 7:52 EDT 10/13/2022 17:22 EDT us Provider Outr Resulting Lab CHEMISTRY & BLOOD GA S ORDERABLES Final Result Performing Organization Address City/State/[facility] Co de Phone Number [facility] [address] [place] [address] * (ABNORMAL) POCT HEMOGLOBIN A1C, INTERFACED (12/17/2020 10:28 EDT) Hemoglobin A1c, POC 9.5(H) <5.7 % 12/17/2020 10:51 EDT [facility] Blood VENOUS BLOOD / Unknown 12/17/2020 10:28 EDT 12/17/2020 10:51 EDT Narrative [facility] - 12/17/2020 10:51 EDT For [...] for individual patients. Test performed at Endocrinology. us Kaley Lopez NP POINT OF CARE TEST ORDERABL ES Final Result Performing Organization Address [facility] Co de Phone Number [facility] [address] [place] [address] * ALBUMIN, URINE (03/12/2019 15:56 EDT) Creatinine, Urn [place] 72.5 mg/dl 03/12/2019 23:27 EDT [facility] Ur Albumin mg/dl <0.6 mg/dL 03/12/20 19 23:52 EDT [facility] Comment:New Vit[facility] 5600 Meth odology in use 10/05/2017 Urine Albumin to Creatinine Ratio <8.3 ug/mg Crea 03/12/2019 23:52 EDT [facility] Comment: Normal: <30 ug/mg creatinine Moderately increased albuminuria: 30-300 ug/mg creatinine Severly increased albuminuria: >300 ug/mg creatinine [facility] 5600 Methodology in use 10/05/2017 Urine specimen (specimen) URINE / Unknown 03/12/2019 15:56 EDT 03/12/2019 19:47 EDT us Jeb Daigle MD CHEMISTRY & BLOOD GAS TOO PATEL Final Result Performing Organization Address City/[facility]/ZIP Co de Phone Number [facility] [address] [place] [address] * LIPID PROFILE (INCLUDES CHOLESTEROL, TRIGLYCERIDES, HDL, LDL) (03/12/2019 15:56 EDT) Cholesterol 178 mg/dl 03/12/2019 20:19 EDT [facility] Comment: Desirable:<200 Borderline High:200-239 High:>gn=122 Triglycerides 113 mg/dl 03/12/2019 20:19 EDT [facility] Comment: Normal:<150 Borderline High:150-199 High:200-499 Very High:>pa=904 HDL 57 mg/dl 03/12/2019 20:19 T [facility] Comment: Low:<40 Normal:40-60 Desirable: >60 LDL, Calculated 98 mg/dl 9 20:19 T [facility] Comment: Optimal:<100 Near Optimal:100-129 Borderline High:130-159 High:160-189 Very High:>wx=525 Chol/HDL Ratio 3.1 03/12/2019 20:19 [facility] Fasting? Unknown 03/12/2019 20:19 T [facility] Non HDL Cholesterol 121 mg/dl 03/12/2019 20:19 [facility] Comment: Desirable:<130 Borderline:130-159 High: 160-189 Very High: >cs=246 Blood specimen (specimen) BLOOD SPECIMEN / Unknown 03/12/2019 15:56 EDT 03/12/2019 19:47 EDT us Jeb Daigle MD CHEMISTRY & BLOOD GAS TOO [facility] Final Result [facility] [address] [place] [address] * DM FOOT EXAM (05/09/2012) DM Foot Exam [facility] DM Foot Exam, External [facility] us Historical Provider MD PROCEDURE/MINOR SURGICAL ORDERABLES Final Result [facility] * DM EYE EXAM (11/24/2011) DM Eye Exam EXTERNAL FACILITY DM Eye Exam, External EXTERNAL FACILITY us Historical Provider MD PROCEDURE/MINOR SURGICAL ORDERABLES Final Result EXTERNAL FACILITY from Last 3 Months or Most Recently Relevant to Health Maintenance Insurance [employer] Advance Directives For more information, please contact: [phone] * Full Code (Latest Code Status on [...] Comments 06/20/2013 11:44 06/20/2013 18:04 Care Teams It Systems Manager Relationship Specialty Start Date End Date Huseyin Zazueta MD [address] [place] [address] PCP - General 07/16/09
--- OUTSIDE RECORDS SUMMARY | 2024-05-02 15:17 | XMS_ITS | Continuity of Care Document ---
Author Organization [facility] Address [address] [place] [phone] Care Team Providers Care Drawer In Plain Loom Name Role Phone Jorge LuisfaviolaFadi Meyer Primary Care Physician Penny Kapoor Unavailable Unavailable Julia Pimentel Unavailable Unavailable Encounter [facility] [id number] Date(s): 01/31/24 - 01/31/24 [facility] [address] [place] [address]- Encounter Diagnosis Uncontrolled type 1 diabetes mellitus with hyperglycemia(Discharge Diagnosis) - 12/31/23 Discharge Disposition: Home or Self Care Attending Physician: Giovanny Hair MD Allergies, Adverse Reactions, Alerts Substance Criticality Severity Reaction Reaction Severity Status insulin detemir High criticality Severe Active Assessment and Plan Future Appointments Functional Status 01/31/24 Recent Travel History No recent travel Medications [...] minutes, # 1 EA, 3 Refill(s), Pharmacy: [facility], 154.94, cm, 06/27/23 8:17:00 EST, Height, 59, kg, 06/27/23 8:23:00 EST, Weight Dosing Start Date: 06/27/23 Status: Ordered insulin aspart 100 units/mL injectable solution See Instructions, 5 to 12 units pre meals via insulin pump with balsal rate 22 units daily (Total Pump Insuilin) 50 units per days) 5 vials / 90 day, # 60 mL, 3 Refill(s), [id number] 154.94, cm, 01/31/24 12:36:00 EDT, Height, 57.61, kg, 01/31/24 12:41:00 EDT, Weight Dosing Start Date: 01/31/24 Status: Ordered insulin glargine 100 units/mL subcutaneous solution 11 units =, Subcutaneous, BID, Back up for PUMP Use only if PUMP not functioning, # 15 mL, 1 Refill(s), Pharmacy: [facility]/pharmacy #[id number], 154.94, cm, 01/31/24 12:36:00 EDT, Height, 57.61, kg, 01/31/24 12:41:00 EDT, Weight Dosing Start Date: 01/31/24 Stop Date: 07/29/24 Status: Ordered [facility] Dexcom G6 Sensor, Dexcom G6 Transmitter, Dexcom G6 Transmitter device, Glucagon Emergency Kit, See Instructions, 0 Refill(s) Start Date: 04/25/23 Status: Ordered [facility] Keto Diastix, Omnipod 5 G6 Intro Kit, Omnipod 5 G6 Pods,, See Instructions, 0 Refill(s) Start Date: 04/25/23 Status: Ordered Miscellaneous DME omni pod 5 G6 pods ( Gen 5) subcutaneous cartridge change every 3 days, See Instructions, # 30 EA, 3 Refill(s), Pharmacy: [facility]/pharmacy #[id number] Start Date: 11/08/23 Status: Ordered Problem List Condition Confirmation Course Effective Dates Status H ealth Status Informant Abnormal cervical Papanicolaou smear Confirmed Active Adenomatous polyp of colon Confirmed Active Depressive disorder Confirmed Active Nicotine dependence Confirmed Active Pain of left shoulder joint on movement Confirmed Active Type 1 diabetes mellitus Confirmed Active Uncontrolled type 1 diabetes mellitus with hyperglycemia Confirmed Active Vital Signs Most recent to oldest [Reference Range]: 1 Peripheral Pulse Rate [60-100 bpm] 81 bp m (01/31/24 12:36 PM) Respiratory Rate [12-24 br/min] 18 br/mi n (01/31/24 12:36 PM) Blood Pressure [90-140/60-90 mmHg] 122/6 8mmHg (01/31/24 12:36 PM) Weight Measured (lbs) 127.008 lb (01/31/24 12:36 PM) Weight Dosing 57.610 kg (01/31/24 12:36 PM) [place] Body Weight Calculated 47.8 kg (01/31/24 12:36 PM) Height/Length Measured (inches) 61 inch (01/31/24 12:36 PM) BSA Measured 1.57 m2 (01/31/24 12:36 PM) Body Mass Index 24 kg/m2 (01/31/24 12:36 PM) Height 154.94 cm (01/31/24 12:36 PM) Weight 57.61 kg (01/31/24 12:36 PM) Social History Social History Type Response Tobacco Current everyday tob acco user Tobacco Use:. Pack a day per day. Sex Female Discharge instructions * Giovanny Hair MD: PERFORM Event Display: Discharge Instructions Authored Date: [id number] MITRA SOSA :1980 Age:43 years Sex:Female Visit Date:01/31/2024 Primary Care Physician: Fadi Cobos Ambulatory Visit Instructions We would like to [...] ratio 1/6, am 15 in Pm correction 1/50 target 110 -120 correct > 130 typica 0 for omlet 2 -5 at lunch 5 to 8 auppwe. ?? BASAL INSULIN 20 u per day 12 -3 0.45 3 -7?0.85 7- 12N 0.95 12 -4pm?? 1.00 4 -?? 10?1.05 10 - 24?0.95 ?? 5. Monitor with BG Meter Trouble check HIgh, ansd Low Random ?? 6. Email monthly , then two days pre visit. Comments: ? Overview,?? Overlay,?? Daily?? 30 day. Discussion Notes Send?? clarity 14 day email [email or web address] LABS: --A1c 3 months ---Chem, Lipid, TSH, urine microAlbumin/creat yearly ---Eye Exam dilated ---- Yearly Medications What How Much When Why Instructions Changed insulin aspart (insulin aspart 100 units/ mL injectablesolution) See instructions 5 to 12 units pre meals via insulin pump ??with balsal rate 22 units daily ??(Total Pump ??Insuilin) 50 units per days) ??5 vials / ??90 day ?? Pickup at [facility]/pharmacy #[id number] Changed insulin glargine (insulin glargine 100 units/ mL subcutaneous solution) 11 Units Subcutaneous (under the skin) 2 times a day Duration: 90 Days Back up for PUMP Use only if PUMP not functioning ?? Pickup at [facility]/pharmacy #[id number] Unchanged albuterol (Albuterol (Eqv-ProAir HFA) 90 mcg/ inh inhalation aerosol) Unchanged atorvastatin (atorvastatin 20 mg oral tablet) 1,5 Oral (given by mouth) Every day 1.5 tablet ?? Unchanged Durable Medical Equipment for Prescription ([facility]) See Instructions Dexcom G6 Sensor, Dexcom G6 Transmitter, Dexcom G6 Transmitter device, Glucagon Emergency Kit ?? Unchanged Durable Medical Equipment for Prescription ([facility]) See Instructions Keto Diastix, Omnipod 5 G6 Intro Kit, Omnipod 5 G6 Pods, ?? Unchanged Durable Medical Equipment for Prescription (Miscellaneous DME) See instructions Type 1 diabetes mellitus without complication omni pod 5 G6 pods ( Gen 5) subcutaneous cartridge change every 3 days ?? Unchanged glucagon (Gvoke HypoPen Two Pack 1 mg/ 0.2 mL subcutaneous solution) See instructions Inject 1 mg for Severe Hypoglycemia, not responding to ??ohter messages, ??patient unable to treat,or patient unresponsive. may repeat once in 15 minutes ?? Pharmacy Information [facility]/pharmacy #[id number]: [address] [place], [place] [id number] [phone] Your Summary Your Diagnosis Uncontrolled type 1 diabetes mellitus with hyperglycemia Problems Ongoing - Any problem that you are currently receiving treatment for. Abnormal cervical Papanicolaou smear Adenomatous polyp of colon Depressive disorder Nicotine dependence Pain of left shoulder joint on movement Type 1 diabetes mellitus Uncontrolled type 1 diabetes mellitus with hyperglycemia Your Care Team Attending Physician - Giovanny Hair MD Primary Care Physician - Fadi Cobos Discharge Vitals Heart Rate??(Peripheral) 81 Respiratory Rate?? 18 Blood Pressure?? 122/68?? SpO2?? 97% Height?? 61.00 in (154.94 cm) Weight?? 127.03 lb (57.61 kg) BMI?? 24 Allergies insulin detemir Electronically Signed on: 01/31/2024 13:24 EDT Signed by:MANUEL Patient Care team information Care Team Personnel Name: Penny Kapoor Position: Ambulatory - Real Estate Coordinator Member Role: Real Estate Coordinator Name: Fadi Cobos Position: No Access Member Role: Primary Care Physician Address: Address: [facility] [address] [place], [place] [address] Name: Julia Pimentel Position: Registration - Grease Man Member Role: Real Estate Coordinator Care Team Related Persons Name: TESSA FRANCO
--- OUTSIDE RECORDS SUMMARY | 2024-05-02 15:17 | XMS_ITS | Continuity of Care Document ---
Author Organization [facility] Address [address] [place] [phone] Care Team Providers Care Field Crops Harvest Machine Operator Name Role Phone Fadi Cortez Primary Care Physician Julia Pimentel Unavailable Unavailable Encounter [facility] [id number] Date(s): 10/26/23 - 10/26/[address] [address] Discharge Disposition: Home or Self Care Allergies, Adverse Reactions, Alerts Substance Criticality Severity Reaction Reaction Severity Status insulin detemir High criticality Severe Active Assessment and Plan Future Appointments Medications Albuterol (Eqv-ProAir HFA) 90 mcg/inh inhalation [...] minutes, # 1 EA, 3 Refill(s), Pharmacy: [facility], 154.94, cm, 06/27/23 8:17:00 EST, Height, 59, kg, 06/27/23 8:23:00 EST, Weight Dosing Start Date: 06/27/23 Status: Ordered insulin aspart 100 units/mL injectable solution 10 units =, Subcutaneous, BID(AC), # 3 mL, 0 Refill(s) Start Date: 04/25/23 Status: Ordered [facility] Dexcom G6 Sensor, Dexcom G6 Transmitter, Dexcom G6 Transmitter device, Glucagon Emergency Kit, See Instructions, 0 Refill(s) Start Date: 04/25/23 Status: Ordered Misc Medical Supplies Keto Diastix, Omnipod 5 G6 Intro Kit, Omnipod 5 G6 Pods,, See Instructions, 0 Refill(s) Start Date: 04/25/23 Status: Ordered Miscellaneous DME omni pod 5 G6 pods ( Gen 5) subcutaneous cartridge change every 3 days, See Instructions, # 30 EA, 3 Refill(s), Pharmacy: [facility] Start Date: 10/26/23 Status: Ordered Problem List Condition Confirmation Course Effective Dates Status Health St atus Informant Abnormal cervical Papanicolaou smear Confirmed Active Adenomatous polyp of colon Confirmed Active Depressive disorder Confirmed Active Nicotine dependence Confirmed Active Pain of left shoulder joint on movement Confirmed Active Type 1 diabetes mellitus Confirmed Active Social History Social History Type Response Tobacco Current everyday tob acco user Tobacco Use:. Pack a day per day. Sex Female Patient Care team information Care Team Personnel Name: uJlia Pimentel Position: Ambulatory - Sawdust Drier Member Role: Sawdust Drier Name: Fadi Cortez Position: No Access Member Role: Primary Care Physician Address: Address: [address] [facility] [address] Care Team Related Persons Name: TESSA FRANCO
--- OUTSIDE RECORDS SUMMARY | 2024-05-02 15:17 | XMS_ITS | Encounter Summary ---
Author Organization [facility] Address [address] [place] [address] Care Team Providers Care Indirect Sales Exec Name Role Phone Huseyin Zazueta MD Primary Care Provider [phone] Encounter Details Date Type Department Care Team (Late st Contact Info) Description 10/13/2022 Lab Requisition [facility] Pathology & Laboratory Medicine - [address] [address] Outr Resulting Lab, Provider Social History Tobacco Use Types Packs/Day Years [...] 08/23/2017 8:59 EDT documented in this encounter Plan of Treatment Not on file documented as of this encounter Procedures Procedure Name Priority Date/Time Associated Diagnosis Comments HEPATITIS C AB W REFLEX TO HCV RNA BY PCR Routine 10/13/2022 7:52 EDT documented in this encounter Results * HEPATITIS C AB W REFLEX TO HCV RNA BY PCR (10/13/2022 7:52 EDT) Hep C Antibody Negative Negative 10/14/2022 9:37 EDT [facility] Blood VENOUS BLOOD / Unknown 10/13/2022 7:52 EDT 10/13/2022 17:22 EDT us Provider Outr Resulting Lab CHEMISTRY & BLOOD GA S ORDERABLES Final Result [facility] [address] [place] [address] documented in this encounter Visit Diagnoses Not on filedocumented in this encounter Care Teams Indirect Sales Exec Relationship Specialty Start Date End Date Huseyin Zazueta MD [address] [place] [address] PCP - General 07/16/09 documented as of this encounter
--- OUTSIDE RECORDS SUMMARY | 2024-05-02 15:17 | XMS_ITS | Continuity of Care Document ---
Author Organization [facility] Address [address] [place] [id number] Care Team Providers Care Indigo Mixer Name Role Phone Fadi Cotrez Primary Care Physician Encounter [facility] [id number] Date(s): 06/27/23 - 06/27/[address] [address]- Encounter Diagnosis Uncontrolled type 1 diabetes mellitus with hyperglycemia(Discharge Diagnosis) - 06/25/23 Discharge Disposition: Home or Self Care Attending Physician: Giovanny Hair MD Allergies, Adverse Reactions, Alerts Substance Reaction Severity Status insulin detemir Severe Active Assessment and Plan Future Appointments Functional Status 06/27/23 COVID-19 Screening None Recent Travel History No [...] minutes, # 1 EA, 3 Refill(s), [facility], 154.94, cm, 06/27/23 8:17:00 EST, Height, 59, kg, 06/27/23 8:23:00 EST, Weight Dosing Start Date: 06/27/23 Status: Ordered insulin aspart 100 units/mL injectable solution 10 units =, Subcutaneous, BID(AC), # 3 mL, 0 Refill(s) Start Date: 04/25/23 Status: Ordered [facility] Dexcom G6 Sensor, Dexcom G6 Transmitter, Dexcom G6 Transmitter device, Glucagon Emergency Kit, See Instructions, 0 Refill(s) Start Date: 04/25/23 Status: Ordered [facility] Keto Diastix, Omnipod 5 G6 [...] Range]: 1 Peripheral Pulse Rate [60-100 bpm] 78 bp m (06/27/23 8:17 AM) Respiratory Rate [12-24 br/min] 18 br/mi n (06/27/23 8:17 AM) Blood Pressure [90-140/60-90 mmHg] 108/6 8mmHg (06/27/23 8:17 AM) Weight Measured (lbs) 130.073 lb (06/27/23 8:17 AM) Weight Dosing 59.000 kg (06/27/23 8:17 AM) Hoffman Body Weight Calculated 47.8 kg (06/27/23 8:17 AM) Height/Length Measured (inches) 61 inch (06/27/23 8:17 AM) BSA Measured 1.59 m2 (06/27/23 8:17 AM) Body Mass Index 24.58 kg/m2 (06/27/23 8:17 AM) Height 154.94 cm (06/27/23 8:17 AM) Weight 59.0 kg (06/27/23 8:17 AM) Social History Social History Type Response Tobacco Current everyday tob acco user Tobacco Use:. Pack a day per day. Sex Female Discharge instructions * Giovanny Hair MD: PERFORM Event Display: Discharge Instructions Authored Date: [id number] MIRTA SOSA :1980 Age:42 years Sex:Female Visit Date:06/27/2023 Primary Care Physician: Fadi Cortez Ambulatory Visit Instructions We would like to thank you for allowing us to assist you with your healthcare needs. The following includes patient education materials and information regarding your injury/illness. Your Next Steps Instructions From Your Care Team Lab 1.?? Go today?? full workup 2.?? Repeat A1c prior to next visit ?? Patient Instructions 1. Healthy Eating Habits ----Limited Carbohydrate (count grams carefully) ----LImited Saturated Fat ----No added salt ----more Fiber --?? FOCUS ON DETAILS?? Carbo Counts.?? Weigh Measure.?? Later may adjust Carbo Ratio 2. Exercise: ----Remain Active? More regular ----Move: [...] day. Discussion Notes .clarity 14 day email [email or web address] LABS: --A1c 3 months ---Chem, Lipid, TSH, urinw microAlbumin/creat yearly ---Eye Exam dilated ---- Yearly ?? Medications What How Much When Instructions Unchanged albuterol (Albuterol (Eqv-ProAir HFA) 90 mcg/ inh inhalation aerosol) Unchanged atorvastatin (atorvastatin 20 mg oral tablet) 1,5 Oral (given by mouth) Every day 1.5 tablet ?? Unchanged Durable Medical Equipment for Prescription ([facility]) See Instructions Dexcom G6 Sensor, Dexcom G6 Transmitter, Dexcom G6 Transmitter device, Glucagon Emergency Kit ?? Unchanged Durable Medical Equipment for Prescription ([facility]) See Instructions Keto Diastix, Omnipod 5 G6 Intro Kit, Omnipod 5 G6 Pods, ?? Unchanged insulin aspart (insulin aspart 100 [...] - Fadi Cortez Discharge Vitals Heart Rate??(Peripheral) 78 Respiratory Rate?? 18 Blood Pressure?? 108/68?? Height?? 61.00 in (154.94 cm) Weight?? 130.10 lb (59.0 kg) BMI?? 24.58 Allergies insulin detemir Electronically Signed on: 06/27/2023 09:15 AM EST Signed by:LOREE Patient Care team information Care Team Personnel Name: Fadi Cortez Position: No Access Member Role: Primary Care Physician Address: Address: [address] [place] [address]- Care Team Related Persons Name: TESSA FRANCO
--- OUTSIDE RECORDS SUMMARY | 2024-05-02 15:17 | XMS_ITS | Continuity of Care Document ---
Author Organization [facility] Address [address] [place] [id number] Care Team Providers Care It Program Auditor Name Role Phone Fadi Cortez Primary Care Physician Encounter [facility] [id number] Date(s): 06/27/23 - 06/27/[address] [address] Encounter Diagnosis Uncontrolled type 1 diabetes mellitus with hyperglycemia(Discharge Diagnosis) - 06/27/23 Discharge Disposition: Home or Self Care Attending Physician: Giovanny Hair MD Admitting Physician: Giovanny Hair MD Referring Physician: Fadi Cortez Allergies, Adverse Reactions, Alerts Substance Reaction Severity [...] minutes, # 1 EA, 3 Refill(s), Pharmacy: Pharmacy, 154.94, cm, 06/27/23 8:17:00 EST, Height, 59, kg, 06/27/23 8:23:00 EST, Weight Dosing Start Date: 06/27/23 Status: Ordered insulin aspart 100 units/mL injectable solution 10 units =, Subcutaneous, BID(AC), # 3 mL, 0 Refill(s) Start Date: 04/25/23 Status: Ordered [facility] Dexcom G6 Sensor, Dexcom G6 Transmitter, Dexcom G6 Transmitter device, Glucagon Emergency Kit, See Instructions, 0 Refill(s) Start Date: 04/25/23 Status: Ordered [facility] Keto Diastix, Omnipod 5 G6 [...] Active Type 1 diabetes mellitus Confirmed Active Results Laboratory List Name Date Comprehensive Metabolic Panel (CMP) 06/27 [facility]SH Level [facility] 06/27/23 Hemoglobin A1c with Estimated Avg Glucos e (A1c) 06/27/23 Lipid Panel 06/27/23 Thyroid Stimulating Hormone (TSH) 4 Vitamin D 25 Hydroxy Level 06/27/23 Most recent to oldest [Reference Range]: 1 BUN [7-18 mg/dL] 6 mg/dL *LOW* (06/27/23 10:00 AM) Cholesterol Total [<=200 mg/dL] 186 mg/d L (06/27/23 10:00 AM) LDL [<=100 mg/dL] 100 mg/dL 1 (06/27/23 10:00 AM) Glucose Level [70-100 mg/dL] 173 mg/dL *HI* (06/27/23 10:00 AM) Potassium Level [3.5-5.1 mEq/L] 4.3 mEq/ L (06/27/23 10:00 AM) HDL [40-60 mg/dL] 64 mg/dL *HI* (06/27/23 10:00 AM) AST [15-37 unit/L] 15 unit/L (06/27/23 10:00 AM) ALT [14-59 unit/L] 22 unit/L (06/27/23 10:00 AM) Sodium Level [136-145 mEq/L] 141 mEq/L (06/27/23 10:00 AM) Chol/HDL 2.91 ratio 2 *NA* (06/27/23 10:00 AM) Vitamin D 25 OH [>=30 ng/mL] 24 ng/mL *LOW* (06/27/23 10:00 AM) Triglycerides [30-150 mg/dL] 58 mg/dL (06/27/23 10:00 AM) Calcium Level [8.5-10.1 mg/dL] 9.4 mg/dL (06/27/23 10:00 AM) Albumin Level [3.4-5.0 g/dL] 3.6 g/dL (06/27/23 10:00 AM) Protein Total [6.4-8.2 g/dL] 6.8 g/dL (06/27/23 10:00 AM) Bilirubin Total [0.2-1.2 mg/dL] 0.4 mg/d L (06/27/23 10:00 AM) Alk Phos [55-142 unit/L] 76 unit/L (06/27/23 10:00 AM) CO2 [21-31 mEq/L] 26 mEq/L (06/27/23 10:00 AM) TSH [0.360-3.740 munit/mL] 0.977 munit/m L (06/27/23 10:00 AM) eGFR Non-AA [>=60 mL/min/1.73 m2] 100 mL /min/1.73 m2 (06/27/23 10:00 AM) eGFR AA [>=60 mL/min/1.73 m2] 121 mL/min /1.73 m2 (06/27/23 10:00 AM) eAvg Glucose [<=140 mg/dL] 194 mg/dL *HI* (06/27/23 10:00 AM) Hemoglobin A1c [<=5.6 %] 8.4 % 3 *HI* (06/27/23 10:00 AM) Chloride Level [98-107 mEq/L] 104 mEq/L (06/27/23 10:00 AM) A/G Ratio 1.1 *NA* (06/27/23 10:00 AM) BUN/Creat Ratio 9 ratio *NA* (06/27/23 10:00 AM) Globulin 3.20 mg/dL *NA* (06/27/23 10:00 AM) Creatinine Level [0.55-1.02 mg/dL] 0.65 mg/dL (06/27/23 10:00 AM) FSH [facility] 9.8 4 *NA* (06/27/23 10:00 AM) Anion Gap [5-15 mEq/L] 15 mEq/L (06/27/23 10:00 AM) 1Interpretive Data: LDL Calculated 2Interpretive Data: Chol/HDL Risk Group Male Female Low 3.5-4.4 3.5-4.4 Average 4.5-6.4 4.5-5.5 High >6.4 >5.5 3Interpretive Data: Nondiabetic: <5.7% Prediabetic: 5.7% to 6.4% Diabetic: >6.4% 4Result Comment: Reference Ranges\.br\\.br\Male: 1.5-12.4 mIU/mL\.br\\.br\Female\.br\ Follicular: 3.5-12.5 mIU/mL\.br\ Ovulation: 4.7-21.5 mIU/mL\.br\ Luteal: 1.7-7.7 mIU/mL\.br\ Postmenopausal: 25.8-134.8 mIU/mL Test performed at: [facility], Dept. of Pathology [place] [id number] Social History Social History Type Response Tobacco Current everyday tob acco user Tobacco Use:. Pack a day per day. Sex Female Patient Care team information Care Team Personnel Name: Fadi Cortez Position: No Access Member Role: Primary Care Physician Address: Address: [address] [place] [address]- Care Team Related Persons Name: TESSA FRANCO
--- OUTSIDE RECORDS SUMMARY | 2024-05-02 15:18 | XMS_ITS | Encounter Summary ---
Author Organization [facility] Address [address] [place] [address] Care Team Providers Care Cardiology Clinical Nurse Specialist Name Role Phone Huseyin Zazueta MD Primary Care Provider [phone] Reason for Visit * Reason Onset Date Comments Follow-up 12/25/2020 DME 12/29/2020 Paperwork request 12/29/2020 Encounter Details Date Type Department Care Team (Late st Contact Info) Description 12/25/2020 Telephone [facility] Endocrinology - [facility] [address] [place] [address] Kaley Lopez NP [address] [facility] [address] [place] [address] Follow-up; DME; Paperwork request Social History Tobacco Use Types Packs/Day Years [...] encounter Miscellaneous Notes * Telephone Encounter - IsraelLamine mijares - 12/29/2020 1116 EDT Circadence sent a fax scanned in on 11/20. They need the bottom of page two filled out and faxedback to [phone]. Celeste says we keep sending her order, but they don't need the order, they needthe prescription. Please fill out page 2 and fax connor. Patient is all out. * Telephone Encounter - Jeannette Damico - 12/25/2020 1612 EDT Celeste called as she said she is waiting on standard written order on the Rx CGM resupply in order tofulfill. Please fax this to [phone] documented in this encounter Plan of Treatment Not on file documented as of this encounter Visit Diagnoses Not on filedocumented in this encounter Care Teams Cardiology Clinical Nurse Specialist Relationship Specialty Start Date End Date Huseyin Zazueta MD [address] [place] [address] PCP - General 07/16/09 documented as of this encounter
--- OUTSIDE RECORDS SUMMARY | 2024-05-02 15:18 | XMS_ITS | Encounter Summary ---
Author Organization [facility] Address [address] [place] [address] Care Team Providers Care Lining Marker Name Role Phone Huseyin Zazueta MD Primary Care Provider [phone] Reason for Visit * Reason Onset Date Comments Medications Refill 06/29/2021 Encounter Details Date Type Department Care Team (Late st Contact Info) Description 06/29/2021 Telephone [facility] Endocrinology - [facility] [address] [place] [address] Kaley Lopez, CHERYLE [address] [facility] [address] [place] [phone] Medications Refill Social History Tobacco Use [...] 08/23/2017 8:59 EDT documented in this encounter Ordered Prescriptions Prescription Sig Dispense Quantity Refills Last Filled Start Date End Date insulin glargine,hum.rec.a nlog (BASAGLAR KWIKPEN) 100 unit/mL (3 mL) subcutaneous pen Inject into the sin 22-30 units at bedtime. For insulin pump failure 15 mL 3 07/06/2021 documented in this encounter Miscellaneous Notes * Telephone Encounter - Kassy King MA - 06/29/2021 0836 EST Images from the original note were not included. FYI: Please note the patient's insurance does not cover LANTUS SOLOPEN 100UNIT/ML 15ML. Below is a list of alternative medications offered by the patient's insurance. If there is a suitable therapeutic alterative please re- write and send a new prescription to the patient's preferred pharmacy. If an appropriate alterative is not listed please let us know and we will start a prior authorization forthe original prescribed medication. documented in this encounter Plan of Treatment Not on file documented as of this encounter Visit Diagnoses Not on filedocumented in this encounter Discontinued Medications Medication Sig Discontinue Reason Start Date End Da te insulin glargine (LANTUS SOLOSTAR/SEMGLEE) 100 unit/mL (3 mL) injection penIndications:Type 1 diabetes mellitus with hypoglycemia and without coma ([facility]) Inject 22-30 Units into the skin at bedtime for 90 days. For pump failure Formulary change 06/18/2021 07/06/2021 documented as of this encounter Care Teams Lining Marker Relationship Specialty Start Date End Date Huseyin Zazueta MD [address] [place] [address] PCP - General 07/16/09 documented as of this encounter
--- OUTSIDE RECORDS SUMMARY | 2024-05-02 15:18 | XMS_ITS | Encounter Summary ---
Author Organization [facility] Address [address] [place] [address] Care Team Providers Care Automatic Print Developer Name Role Phone Huseyin Zazueta MD Primary Care Provider [phone] Reason for Visit * Reason Comments Diabetes Encounter Details Date Type Department Care Team (Latest Contact Info) Description 12/17/2020 10:30 EDT Office Visit [facility] Endocrinology - [facility] [address] [place] [address] Kaley Lopez, CHERYLE [address] [facility] [address] [place] [address] Type 1 diabetes mellitus with hypoglycemia and without coma (HCC-CMS) (Primary Dx); Pure hypercholesterolemia Social History Tobacco Use Types Packs/Day Years [...] on file documented as of this encounter Last Filed Vital Signs Vital Sign Reading Time Taken Comments Blood Pressure 113/66 12/17/2020 1021 EDT Pulse 81 12/17/2020 1021 EDT Temperature - - Respiratory Rate - - Oxygen Saturation - - Inhaled Oxygen Concentration - - Weight 59.5 kg (131 lb 3.2 oz) 12/17/2020 1021 E DT Height 157.5 cm (5' 2.01) 12/17/2020 1021 EDT Body Mass Index 23.99 12/17/2020 1021 EDT documented in this encounter Functional Status * Because of [...] 08/23/2017 8:59 EDT documented in this encounter Patient Instructions * Patient Instructions* Kaley Lopez NP - 12/17/2020 10:30 EDT Adjust basals overnight: Basal 1: 12a 0.65* 3a 0.9 12p 1.05 10p 1.0* If still waking high, then consider increasing 12-3a basal from 0.65-0.7u/h Correction has appeared to strong, overnight in particular or fasting state 1:60* I:carb 12a 1:7* 4pm 1:5 documented in this encounter Ordered Prescriptions Prescription Sig Dispense Quantity Refills Last Filled Start Date End Date blood glucose (ACCU-CHEK POLI PLUS TEST STRP) test stripsIndications :Type 1 diabetes mellitus with hypoglycemia and without coma ([facility]) 1 Strip by misc (non-drug; combo route) route 3 times daily. 300 Each 1 03/02/20 21 Blood-Glucose Transmitter (DEXCOM G6 TRANSMITTER) deviceIndications :Type 1 diabetes mellitus with hypoglycemia and without coma ([facility]) 1 Device by misc (non-drug; combo route) route every 90 days for 4 doses. E10.65 1 Device 3 1 09/15/19 22 Blood-Glucose Sensor (DEXCOM G6 SENSOR) deviceIndications :Type 1 diabetes mellitus with hypoglycemia and without coma (HCC-CMS) 1 Device by misc (non-drug; combo route) route every 10 days for 90 days. E10.65 9 Device 3 1 03/17/20 21 insulin aspart U-100 (NOVOLOG U-100 INSULIN ASPART) 100 unit/mL injectionIndicati ons:Type 1 diabetes mellitus with hypoglycemia and without coma (HCC-CMS) INJECT 50 UNITS SUBCUTANEOUSLY DIRECTED VIA CONTINUOUS INSULIN PUMP 50 mL 3 1 08/26/19 22 insulin glargine (LANTUS SOLOSTAR) 100 unit/mL (3 mL) injection penIndications:Ty pe 1 diabetes mellitus with hypoglycemia and without coma (HCC-CMS) Inject 30 Units into the skin at bedtime for 90 days. 30 mL 3 1 06/18/19 22 documented in this encounter Progress Notes * Kaley Lopez COUNTRY PRINTER APPRENTICE - 12/17/2020 1030 EDT Images from the original note were not included. [facility] Diabetes Follow-Up Note Carolyn Portillo presents in clinic today with: CHIEF COMPLAINT: Chief Complaint Patient presents with ??? Diabetes HPI: Carolyn Portillo has had diabetes since 2009 Carolyn Portillo recently has a history of being in fair glycemic control. Patient has a history of being compliant most of the time with medical therapy. Glucose monitoring: dexcom. Home Blood Glucoses Running: BGs are consistent with Hgb A1C. Patient corrects for high blood sugar consistently, boluses for snacks consistently, boluses for meals consistently and utilizes multiple injection/infusion sites Patient has a current medication list which includes the following prescription(s): accu-chek avivaplus meter, acetaminophen, blood glucose, dexcom g6 sensor, dexcom g6 transmitter, glucagon, ibuprofen, insulin aspart u-100, insulin glargine, insulin pen needles 31g x 5/16, and ketostix. Carolyn Portillo reports the following hysterectomy in 07/2020. Feeling better now after a few week recovery. She has been working from home through the pandemic, anticipates going back one day a week in February. Dexcom 36 % in target. She has lows after correction, and overall high trend overnight. Review of Systems Constitutional: Negative for malaise/fatigue and weight loss. Eyes: Negative for blurred vision and double vision. Respiratory: Negative for cough and shortness of breath. Cardiovascular: Negative for palpitations and leg swelling. Gastrointestinal: Negative for abdominal pain, blood in stool, constipation, diarrhea, nausea and vomiting. Genitourinary: Negative for frequency. Musculoskeletal: Negative for back pain, falls, joint pain and myalgias. Skin: Negative for rash. Neurological: Negative for tingling and tremors. Endo/Heme/Allergies: Negative for polydipsia. Psychiatric/Behavioral: Negative for depression and memory loss. The patient does not have insomnia. The patient has experienced the following acute complications: none. Eating habits: adherent to diabetic diet. Patient's weight has been stable. Wt Readings from Last 3 Encounters: 12/17/20 59.5 kg (131 lb 3.2 oz) 03/20/19 60.8 kg (134 lb) 10/25/18 58.5 kg (129 lb) Patient exercise level is: moderately active. Social History Tobacco Use ??? Smoking status: Current Every Day Smoker Packs/day: 0.25 ??? Smokeless tobacco: Current User Substance Use Topics ??? Alcohol use: No Comment: occasional PHYSICAL EXAMINATION: Vitals: BP 113/66 Pulse 81 Ht 157.5 cm (62.01) Wt 59.5 kg (131 lb 3.2 oz) BMI 23.99 kg/m?? BMI: Body mass index is 23.99 kg/m??. Physical Exam Constitutional: Appearance: Normal appearance. HENT: Head: Normocephalic. Eyes: Conjunctiva/sclera: Conjunctivae normal. Pupils: Pupils are equal, round, and reactive to light. Cardiovascular: Rate and Rhythm: Normal rate. Musculoskeletal: Cervical back: Normal range of motion and neck supple. Neurological: General: No focal deficit present. Mental Status: She is alert and oriented to person, place, and time. Psychiatric: Mood and Affect: Mood normal. Behavior: Behavior normal. Thought Content: Thought content normal. Judgment: Judgment normal. LABS: Lab Results Component Value Date HGBA1C 9.5 (H) 12/17/2020 Lab Results Component Value Date CHOL 178 03/12/2019 HDL 57 03/12/2019 LDLBASE 98 03/12/2019 TRIG 113 03/12/2019 CHOLHDL 3.1 03/12/2019 Lab Results Component Value Date BUN 10 03/12/2019 CREATININE 0.59 03/12/2019 NA 135 (L) 03/12/2019 K 3.9 03/12/2019 Lab Results Component Value Date ALT 11 03/12/2019 Lab Results Component Value Date LABALBU 4.1 03/12/2019 UCREA 72.5 03/12/2019 MICRALBCRRAT Unable to calculate ug/mg Crea result. 01/12/2017 ASSESSMENT: 1. Type 1 diabetes mellitus with hypoglycemia and without coma ([facility]) 2. Pure hypercholesterolemia PLAN: Medications: Adjust basals overnight: Basal 1: 12a 0.65* 3a 0.9 12p 1.05 10p 1.0* If still waking high, then consider increasing 12-3a basal from 0.65-0.7u/h Correction has appeared to strong, overnight in particular or fasting state 1:60* I:carb 12a 1:7* 4pm 1:5* She needs dexcom, but has new insurance that she does not know which distributor to send them to Recommend aspirin daily. Insulin: Insulin stabilization is required:yes Non-insulin: diet. Recommended: none. Glucose monitoring dexcom. Referred to diabetic education program. no Referred to clinical systems educator no. Patient referred to eye manager urgent care for annual dilated eye exam. Lifestyle modifications: exercise >150 min/wk and recommend compliance with a diabetic diet Patient does demonstrate knowledge of diabetes and expectations. Patient does understand medication regimen. Barriers to adherence: No Barriers. Goals and plan to achieve these discussed Systolic blood pressure less than 130. And diastolic blood pressure less than 80. Hemoglobin A1C less than 7%. LDL cholesterol: 70 to 99. HDL - males >40 and females > 50 mgm/dl Trig less than 180 - fasting Return in three months. I spent a total of 45 minutes on the date of this encounter meeting with the patient and reviewing documentation/coordinating care as described in the above note. No procedures were performed at the time of the visit. Kaley Lopez NP 12/17/2020 11:23 * Christos Peñaloza MA - 12/17/2020 1030 EDT Fingerstick blood sample obtained for POCT Hemoglobin A1C performed for this DOS at the order of Kaley Lopez NP/ Talha Desir DO documented in this encounter Plan of Treatment Not on file documented as of this encounter Procedures Procedure Name Priority Date/Time Associated Diagnosis Comments POCT CSN BARCODE HEMOGLOBIN A1C INT Routine 12/17/2020 10:50 EDT Type 1 diabetes mellitus with hypoglycemia and without coma ([facility]) POCT HEMOGLOBIN A1C, INTERFACED ORDER Routine 12/17/2020 10:28 EDT Type 1 diabetes mellitus with hypoglycemia and without coma ([facility]) POCT HEMOGLOBIN A1C, INTERFACED Routine 12/17/2020 10:28 EDT Type 1 diabetes mellitus with hypoglycemia and without coma ([facility]) documented in this encounter Results * POCT CSN BARCODE HEMOGLOBIN A1C INT (12/17/2020 10:50 EDT) Hold Hold 12/17/2020 12:01 EDT [facility] Blood VENOUS BLOOD / Unknown 12/17/2020 10:50 EDT 12/17/2020 10:50 EDT us Kaley Lopez NP LAB INFO SERVICE AND SUPPOR T & PHONE RESULT Final Result [facility] [address] [place] [id number] * (ABNORMAL) POCT HEMOGLOBIN A1C, INTERFACED (12/17/2020 10:28 EDT) Hemoglobin A1c, POC 9.5(H) <5.7 % 12/17/2020 10:51 EDT [facility] Blood VENOUS BLOOD / Unknown 12/17/2020 10:28 EDT 12/17/2020 10:51 EDT Narrative [facility] - 12/17/2020 10:51 EDT [...] OF CARE TEST ORDERABL ES Final Result [facility] [address] [place] [address] documented in this encounter Visit Diagnoses Diagnosis Type 1 diabetes mellitus with hypoglycemia and without coma ([facility])- Primary Type I (juvenile type) diabetes mellitus with other specified manifestations, not stated as uncontrolled Pure hypercholesterolemia documented in this encounter Discontinued Medications Medication Sig Discontinue Reason Start Date End Da te insulin glargine (BASAGLAR KWIKPEN) 100 unit/mL (3 mL) injection pen Inject 30 Units into the skin at bedtime for 90 days. Reorder 06/14/2017 12/17/2020 blood glucose (ACCU-CHEK POLI PLUS TEST STRP) test strips 1 Strip by misc (non-drug; combo route) route 3 times daily. Reorder 02/21/2020 12/17/2020 NOVOLOG U-100 INSULIN ASPART 100 unit/mL injection INJECT 40 UNITS SUBCUTANEOUSLY DIRECTED VIA CONTINUOUS INSULIN PUMP Reorder 06/04/2020 12/17/2020 documented as of this encounter Care Teams Automatic Print Developer Relationship Specialty Start Date End Date Huseyin Zazueta MD [address] [place] [address] PCP - General 07/16/09 documented as of this encounter
--- OUTSIDE RECORDS SUMMARY | 2024-05-02 15:18 | XMS_ITS | Encounter Summary ---
Author Organization [facility] Address [address] [place] [address] Care Team Providers Care Microeconomics Professor Name Role Phone Huseyin Zazueta MD Primary Care Provider [phone] Encounter Details Date Type Department Care Team (Late st Contact Info) Description 02/16/2022 Lab Requisition [facility] Pathology & Laboratory Medicine - [facility] [address] [place] [address] Aury Lopez, DO [address] [place], [place] [id number] Benign neoplasm of colon, unspecified; Family history of malignant neoplasm of digestive organs; Type 1 diabetes mellitus without complications (HCC-CMS) (HCC); Hyperlipidemia, unspecified; Personal history of nicotine dependence Social History Tobacco Use Types Packs/Day Years [...] Procedure Name Priority Date/Time Associated Diagnosis Comments SURGICAL PATHOLOGY Today 02/16/2022 7: 55 EDT Benign neoplasm of colon, unspecified Family history of malignant neoplasm of digestive organs Type 1 diabetes mellitus without complications (HCC-CMS) (HCC) Hyperlipidemia, unspecified Personal history of nicotine dependence documented in this encounter Results * SURGICAL PATHOLOGY (02/16/2022 7:55 EDT) Note to Patient The following pathology results have been interpreted by your pathologist and may be available to you before your health provider has had the opportunity to review them. Please allow time for your provider to receive these results and explore management options, if applicable. 02/17/2022 12:05 [facility] Final Diagnosis A. RECTUM, POLYP: - Hyperplastic polyp. 02/17/2022 12:05 [facility] Attestation By the signature below, the attending physician certifies that they have 1) personally conducted a gross and/or microscopic examination of the described specimen(s), and/or personally interpreted the results of laboratory testing of the described specimen(s), and 2) personally rendered or confirmed the above diagnosis. 02/17/2022 12:05 [facility] at 1205 Clinical History Hx polyp; family hx colon CA 02/17/2022 12:05 [facility] Gross Description A. Received in formalin labelled with proper patient identification (initials H, S) and rectal polyp is a light heller tissue measuring 0.3 x 0.2 x 0.1 cm. Submitted intact in A1. JOSHUA HERNANDEZ(ASCP) 02/16/2022 20:13 02/17/2022 12:05 [facility] Performing Lab [facility] 02/17/2022 12:05 EDT [facility] Scanned Images 02/17/2022 12:05 EDT [facility] Tissue SPECIMEN FROM RECTUM / Unknown 02/16/2022 7:55 EDT 02/16/2022 17:01 EDT us Aury Lopez DO PATHOLOGY ORDERABLES Final Re sult [facility] [address] [place] [address] documented in this encounter Visit Diagnoses Diagnosis Benign neoplasm of colon, unspecified Family history of malignant neoplasm of digestive organs Type 1 diabetes mellitus without complications ([facility]) Type I (juvenile type) diabetes mellitus without mention of complication, not stated as uncontrolled Hyperlipidemia, unspecified Personal history of nicotine dependence Personal history of tobacco use, presenting hazards to health documented in this encounter Care Teams Microeconomics Professor Relationship Specialty Start Date End Date Huseyin Zazueta MD [address] [place] [id number] PCP - General 07/16/09 documented as of this encounter
--- OUTSIDE RECORDS SUMMARY | 2024-05-02 15:18 | XMS_ITS | Encounter Summary ---
Author Organization [facility] Address [address] [place] [address] Care Team Providers Care Flash Developer Name Role Phone Huseyin Zazueta MD Primary Care Provider [phone] Encounter Details Date Type Department Care Team (Late Contact Info) Description 08/19/2021 Lab Requisition [facility] Pathology & Laboratory Medicine - [address] [address] Tori Monte MD [address] [place] [phone] Encounter for other general examination Social History Tobacco Use Types Packs/Day Years [...] Procedure Name Priority Date/Time Associated Diagnosis Comments PAP TEST Today 08/18/2021 10:15 EDT Encounter for other general examination HPV DNA DETECTION WITH GENOTYPING, PCR, THINPREP Today 08/18/2021 10:15 EDT Encounter for other general examination documented in this encounter Results * HPV DNA DETECTION WITH GENOTYPING, PCR, THINPREP (08/18/2021 10:15 EDT) Specimen Source vagina 19:18 EDT [facility] HPV Risk Type 16, PCR Negative Negative 08/28/2021 19:18 EDT [facility] HPV High Risk Type 18, PcR Negative Negative 08/28/2021 19:18 EDT [facility] HPV Other High Risk Types, PCR Negative Negative 08/28/2021 19:18 EDT [facility] Comment: The following Other High Risk HPV types were not detected: 31, 33, 35, 39, 45, 51, 52, 56, 58, 59, 66, and 68 Test Performed by: [address] [address] [employer] Consultant: Gigi Anders M.D. Ph.D.; CLIA# [id number] Papanicolaou smear specimen (specimen) ENTIRE VAGINA / Unknown 08/18/2021 10:15 EDT 08/25/2021 13:36 EDT us Tori Monte MD MICROBIOLOGY - GENERAL ORDER RASHI Final Result [address] [address] * PAP TEST (08/18/2021 10:15 EDT) Specimens A. Vagina , ThinPrep Imaging System with Manual Evaluation 08/28/2021 20:21 EDT [facility] Specimen Adequacy Satisfactory for Evaluation - assessment of transformation zone component not applicable ( e.g. atrophy, vaginal sample, hysterectomy) 08/28/2021 20:21 EDT [facility] General Categorization Negative for intraepithelial lesion or malignancy 08/28/2021 20:21 [facility] Attestation . 08/28/2021 20:21 [facility] at 2020 Clinical History See below 08/29/19 20:21 [facility] HPV The results for the HPV with Genotyping, PCR, ThinPrep are Negative for the HPV Risk Type 16, PCR, Negative for the HPV High Risk Type 18, PcR, and Negative for the HPV Other High Risk Types, PCR. Testing was performed on specimen [id number] and was resulted on 08/28/20212020 EDT by VICKIE, VI [facility] IN. Comment: The following Other High Risk HPV types were not detected: 31, 33, 35, 39, 45, 51, 52, 56, 58, 59, 66, and 68 Test Performed by: [place] [address] [employer] Consultant: Gigi Anders M.D. Ph.D.; CLIA# [id number] 08/28/2021 20:21 [facility] Performing Lab [facility] 08/28/2021 20:21 [facility] Scanned Images 08/28/2021 20:21 [facility] Papanicolaou smear specimen (specimen) ENTIRE VAGINA / Unknown 08/18/2021 10:15 EDT 08/19/2021 8:59 EDT us Tori Motne MD PATHOLOGY ORDERABLES Final R esult [facility] [address] [place] [address] documented in this encounter Visit Diagnoses Diagnosis Encounter for other general examination documented in this encounter Care Teams Flash Developer Relationship Specialty Start Date End Date Huseyin Zazueta MD [address] [place] [address] PCP - General 07/16/09 documented as of this encounter
--- OUTSIDE RECORDS SUMMARY | 2024-05-02 15:18 | XMS_ITS | Encounter Summary ---
Author Organization [facility] Address [address] [place] [address] Care Team Providers Care Sap Portal Consultant Name Role Phone Huseyin Zazueta MD Primary Care Provider [phone] Reason for Visit * Reason Onset Date Comments DME 11/24/2020 Appointment Related 11/24/2020 12.29.2020 Labs Only 11/24/2020 Encounter Details Date Type Department Care Team (Late st Contact Info) Description 11/24/2020 Telephone [facility] Endocrinology - [facility] [address] [place] [address] Lorraine Figueroa NP [address] [facility] [address] [place] [address] DME; Appointment Related (12.29.2020); Labs Only Social History Tobacco Use Types Packs/Day Years [...] encounter Miscellaneous Notes * Telephone Encounter - Kaley Lopez NP - 11/25/2020 1011 EDT I added orders, A1c, CMP, Lipids (so she should fast), TSH, urine for microalb. * Telephone Encounter - Beata Benson - 11/24/2020 1719 EDT Patient scheduled with Kaley Lopez on 12.29.2020. Patient wondering if she needs to have labs drawn prior. Please call patient to verify * Telephone Encounter - Lamine Barillas - 11/24/2020 1634 EDT Celeste from [facility] id calling to request patient's SWO cgm/diabetic supplies be faxed to [phone]. But patient will have to be seen in office before they are able renew prescription. documented in this encounter Plan of Treatment Not on file documented as of this encounter Visit Diagnoses Diagnosis Uncontrolled type 1 diabetes mellitus with hyperglycemia (HCC-CMS)- Primary documented in this encounter Care Teams Sap Portal Consultant Relationship Specialty Start Date End Date Huseyin Zazueta MD [address] [place] [address] PCP - General 07/16/09 documented as of this encounter
--- OUTSIDE RECORDS SUMMARY | 2024-05-02 15:18 | XMS_ITS | Encounter Summary ---
Author Organization [facility] Address [address] [place] [address] Care Team Providers Care Dramatic Director Name Role Phone Huseyin Zazueta MD Primary Care Provider [phone] Reason for Visit * Reason Comments Diabetes Encounter Details Date Type Department Care Team (Latest Contact Info) Description 03/05/2020 14:[address] [facility] Endocrinology - [facility] [address] [place] [address] Lorraine Figueroa NP [address] [facility] [address] [place] [address] Pure hypercholesterolemia (Primary Dx); Smoker Social History Tobacco Use Types Packs/Day Years [...] this encounter Patient Instructions * Patient Instructions* Lorraine Figueroa APRN - 03/05/2020 14:30 EDT Bolus 15 minutes pre- meal Add CHO insulin ratio at 4 PM of 5;1 or 6:1 and 8:1 rest of time Decrease both basal rates at MN 0.05 units And at 3 AM 0.1 units F/U in 6 months documented in this encounter Progress Notes * Lorraine Figueroa APRN - 03/05/2020 1430 EDT Images from the original note were not included. Endocrinology Follow-up Note 12/02/2015 TELEMEDICINE VIDEO VISIT Today's visit was provided through telemedicine video conferencing: The location of the patient : Home The location of the provider: Office The following staff and their role did participate in today's encounter visit: Lorraine Figueroa APRN The concept of ???Telemedicine?? has been described to the patient.? Patient has been informed of the anticipated benefits and possible risks.? Patient understands the information provided regardingtelemedicine, has had the opportunity to ask questions about this information, and all questions have been answered to patient???s satisfaction. Patient consents for the use of telemedicine in his/her medical care and authorizes the transmission of any relevant medical information to providers and their staff involved in patient???s medical or mental health care. HPI: Carolyn Portillo is a 39 y.o. female with a video follow-up visit due to Covid 19 restrictions. Visit is with adult endocrine clinic for her type 1 diabetes, managed by pump. She was last seen in clinic 10/25/2018. .She wears her DEXCOM G5 sensor intermittently when can afford. She has not switched to G^ to avoid co pays. She restarted pump therapy 09/20/2017 with support from our educators and the [employer] CGMwhich she loves. She has been afraid exercise without it for safety reasons. She now worksfrom home Due to COVID. PMH: ?1. Obstetrics History: : 6 Para: 3 (1 spont ab, 1 elective ab) ? #?? Outcome?? Date?? GA?? Weight?? Sex?? Delivery?? 1?? Live ?? 1998?? 40 weeks?? 6 lb 10 oz?? female? 2?? Elect ab?? 1999? 3?? Live ?? 2002?? 40 weeks?? 6 lb 7 oz?? female? 4?? spont ab?? 2003? 5?? Live ?? 2004?? 40 weeks?? 6 lb 6 oz?? male? 6?? live ?? 2014?? 36 weeks ? Female ? Diabetes since 07/2009. During , she was admitted at gestational age 25 weeks with DKA and received steroids for lung maturity. She had significant spikes in her glucoses around that time which did stabilize. She was seen through her by our endocrine team in the high risk [facility] clinic. She was started on an insulin pump & sensor 08/30 by our educator. At 36 weeks she had an emergency ., because of concerns the fetus had congenital defects. She has 4 children athome. She uses a Mirena IUD. She had previously been on an insulin pump, but developed welts at the catheter sites and they dislodged. She also had some site infections despite trying different catheters, and problems with catheters pulling out of her thighs where she preferred to wear it. Current diabetes regimen includes NovoLog insulin in her pump Omni pod insulin pump settings: Has 2 basal rate panels. Basal set 1 midnight 0.6 units/h, 4 AM 1.0, noon 1.05, 10 PM 0.85 for a total of 22 units of basal per day. Basal set 2 - MN 0.5, 4 AM 0.95, 10 PM 0.85 Carbohydrate: Insulin ratio is 8: 1 Sensitivity is 50: 1 for blood sugars over 130. Active insulin is 4 hours DEXCOM:G5 settings low alarm 80 and high now 200 (recent drop from 250). She has a prescription for Basaglar as needed for pump failure. She still has problems with glucose climbing, even if boluses ahead 30 minutes, but usually bolusesjust a seats. . She eats a lot of home-cooked meals making it harder to calculate carbs. She also tries to use the dual wave. She does not snack in the evening but will take a correction bolus at bed if needed One wk a month her glucose runs low. Her weight fluctuates minimally. She continues to smoke. She started at age 14 and has tried, to quit cold turkey, and Chantrix. Her teenage children are pressuring her to, has talked with Vt. Quits in the past. Has a script at home for a Nicoderm inhaler. She has a glucagon kit at home- her children and boyfriend know how to use it. . Physical activity: Fairly active, walks likes to outdoors. She carries skittles at all times. Previous referral to dietitian/ict educator: has seen Lacie Nichole RN CDE and Pam Miranda RD CDE. Associated macro- and microvascular complications: None Risk factors for atherosclerotic disease: High LDL Family history of diabetes: None Patient Active Problem List Diagnosis ??? Type 1 diabetes mellitus ([facility]) ??? Smoker ??? Pure hypercholesterolemia Past Medical History: Diagnosis Date ??? Diabetes mellitus ([facility]) 2007 eye exam annually ??? Kidney stones ??? hematuria & adbominal pain Past Surgical History: Procedure Laterality Date ??? WISDOM TOOTH EXTRACTION Allergies: Levemir [insulin detemir] Social hx Reviewed and updated in the chart. Family History Problem Relation Age of Onset ??? High Blood Pressure Mother ??? Diabetes Sister ROS: Pertinent items are noted in Subjective/HPI. Otherwise negative on a 12 point review of systems. Constitutional: Negative for fever, weight loss, malaise/fatigue and diaphoresis. HENT: Negative for neck pain. Eyes: Negative for double vision. Has acute angle galucoma . Eye exam. Up-to-date Respiratory: Negative for shortness of breath and wheezing. Cardiovascular: Negative for chest pain, palpitations and leg swelling. Gastrointestinal: Negative for nausea, vomiting, abdominal pain, usually either has diarrhea and constipation. Skin: Negative for rash. Neurological: Negative for tremors, focal weakness but frequent JAMISON, All other systems reviewed and are negative. Physical Examination: There were no vitals taken for this visit. Laboratory Data: Labs done 1219 at her PCPs office in [facility] creatinine 0.63, GFR greater than 600, total cholesterol 200, triglycerides 102, HDL 59, LDL 120, urine microalbumin/creatinine ratio less than 0.6, no TSH found Ref. Range 12/02/2015 08:53 12/02/2015 09:39 01/12/2017 10:06 01/12/2017 10:57 08/23/2017 08:57 10/25/2018 15:02 03/12/2019 15:56 03/20/2019 15:36 Hemoglobin A1c, POC Latest Ref Range: 5.7 % 9.0 (A) Hemoglobin A1C, POC Interfaced Latest Ref Range: <5.7 % 8.5 (H) 8.3 (H) 7.3 (H) 7.4 (H) Ur Alb ug/mg Crea Latest Units: ug/mg Crea 11.3 Unable to calculate ug/mg Crea result. Ur Alb ug/mg Crea Latest Units: ug/mg Crea <8.3 Ur Albumin mg/dl Latest Units: mg/dl 0.5 <0.2 Ur Albumin mg/dl Latest Units: mg/dL <0.6 Lab Results Component Value Date NA 135 (L) 03/12/2019 K 3.9 03/12/2019 CL 102 03/12/2019 CO2 26 03/12/2019 BUN 10 03/12/2019 CREATININE 0.59 03/12/2019 SERGLU 213 (H) 03/12/2019 CALCIUM 9.3 03/12/2019 CALCCA 9.2 03/12/2019 Lab Results Component Value Date CHOL 178 03/12/2019 TRIG 113 03/12/2019 HDL 57 03/12/2019 LDLBASE 98 03/12/2019 CHOLHDL 3.1 03/12/2019 Lab Results Component Value Date WBC 12.10 09/07/2013 Lab Results Component Value Date TP 6.9 03/12/2019 LABALBU 4.1 03/12/2019 TBIL <0.5 03/12/2019 ALT 11 03/12/2019 AST 19 03/12/2019 ALKPHOS 74 03/12/2019 Is is as there is Lab Results Component Value Date TSH 1.03 01/12/2017 Assessment: Carolyn Portillo is a 39 y.o. female 1. Type 1 diabetes mellitus. 39-year-old female with Type 1 DM with suboptimal glucose control,but fewer lows now that she is back on the Omni pod pump and DEXCOM G5 sensor. She is working from home and has 4 children so very busy home and work. Medtronic Insulin pump was stopped due to rashes and infections. She works very hard to manage her blood sugars. Glucose still drops when waking and climbs after dinner. Needs a stronger CHO ratio No signs of micro or macrovascular disease. Pst BP stable no proteinuria KENDRICK or ARB not indicated - Deferred to PCP LDL-improved now slightly under. Motivated to avoid a statin , so recommend defer for now and recheck in spring. No recent TSH found but clinically euthyroid Plan: Bolus 15 minutes pre- meal Add CHO insulin ratio at 4 PM of 5;1 or 6:1 and 8:1 rest of time Decrease both basal rates at MN 0.05 units And at 3 AM 0.1 units F/U in 6 months We will try to get labs from PCP. Lorraine Figueroa APRN 03/05/2020 I spent a total of 30 minutes in virtual face to face time with this patient, and 25 minutes of that time was spent in counseling and coordination of care as described in This progress note ICD-10-CM ICD-9-CM 1. Pure hypercholesterolemia E78.00 272.0 2. Smoker F17.200 305.1 Carolyn Portillo has been testing their blood sugars 4 times daily for the past 30 days Carolyn Portillo is using Omnipod pump Carolyn Portillo is using Dexcom G5 CGM Carolyn Portillo is either on an insulin pump or receives three or more insulin injections daily Carolyn Portillo is on a treatment program that requires frequent insulin dose adjustments based on blood sugar readings Electronically signed by Lorraine Figueroa APRN documented in this encounter Plan of Treatment Not on file documented as of this encounter Visit Diagnoses Diagnosis Pure hypercholesterolemia- Primary Smoker Tobacco use disorder documented in this encounter Care Teams Dramatic Director Relationship Specialty Start Date End Date Huseyin Zazueta MD [address] [place] [address] PCP - General 07/16/09 documented as of this encounter
--- OUTSIDE RECORDS SUMMARY | 2024-05-02 15:18 | XMS_ITS | Encounter Summary ---
Author Organization [facility] Address [address] [place] [address] Care Team Providers Care Chiropractic Assistant Name Role Phone Huseyin Zazueta MD Primary Care Provider [phone] Reason for Visit * Reason Comments Diabetes Encounter Details Date Type Department Care Team (Latest Contact Info) Description 03/20/2019 15:50 EDT Office Visit [facility] Endocrinology - [facility] [address] [place] [address] Lorraine Figueroa NP [address] [facility] [address] [place] [address] Type 1 diabetes mellitus without complication (HCC-CMS) (Primary Dx) Social History Tobacco Use Types Packs/Day Years Used Date Smoking Tobacco: Every Day Cigarettes Smokeless Tobacco: Current Tobacco Cessation:Ready to Q uit: No; Counseling Given: Yes Alcohol Use Standard Drinks/Week Comments No 0 (1 standard drink = 0.6 oz pur e alcohol) occasional Comments No Sex and Gender Information Value Date Recorded Sex Assigned at Not on file Legal Sex Female 18:29 EST Gender Identity Not on file Sexual Orientation Not on file documented as of this encounter Last Filed Vital Signs Vital Sign Reading Time Taken Comments Blood Pressure 115/71 03/20/2019 1552 EDT Pulse 78 03/20/2019 1552 EDT Temperature - - Respiratory Rate - - Oxygen Saturation - - Inhaled Oxygen Concentration - - Weight 60.8 kg (134 lb) 03/20/2019 1552 EDT Height 157.5 cm (5' 2.01) 03/20/2019 1552 EDT Body Mass Index 24.5 03/20/2019 1552 EDT documented in this encounter Functional Status [...] Patient Instructions * Patient Instructions* Lorraine Figueroa Np - 03/20/2019 15:50 EDT tsh ordered to be done at [facility]. Be more aggressive with breakfast and dinner bolus ? 6 or 7:1. F/U in 4 months documented in this encounter Progress Notes * Nury Montoya - 03/20/2019 1550 EDT Fingerstick blood sample obtained for POCT Hemoglobin A1C performed for this DOS at the order of Lorraine Figueroa NP/ Alexei Elizabeth MD * Lorraine Figueroa Np - 03/20/2019 1550 EDT Images from the original note were not included. Endocrinology Follow-up Note 12/02/2015 HPI: Carolyn Sosa is a 38 y.o. female seen in follow-up in the adult endocrine clinic for her type 1 diabetes, managed by pump. She was last seen in clinic 10/25/2018..She wears her DEXCOM G5 sensor intermittently when can afford. She restarted pump therapy 09/20/2017 with support from our educators and the DEXCOM G5 which she loves. She has been afraid exercise without it for safety reasons. Last wkshe decreased to high alarm ln her sensor form 250-200. She now works from home 3 days/wk. She still has problems with glucose climbing, even if boluses ahead more. PMH: ?1. Obstetrics History: : 6 Para: [...] our endocrine team in the high risk [facility] clinic. She was started on an insulin [...] Basaglar as needed for pump failure. She tries to bolus 30 minutes pre-meal, since boluses seem to take longer to bring sugars down, then expected. However has not been recently especially when eating out.. She eats a lot of home-cooked meals making it harder to calculate carbs. She also tries to use the dual wave. She does not snack in the evening but will take a correction bolus at bed if needed Her weight fluctuates minimally. She continues to smoke. She started at age 14 and has tried, to quit cold turkey, and Chantrix. Her teenage children are pressuring her to, has talked with Vt. Quits in the past. Has a script at home for a Nicoderm inhaler. She has a glucagon kit at home and her children and boyfriend how to use it. She carries skittles at all times. Physical activity: Fairly active, walks likes to outdoors. Carries glucose. Previous referral to dietitian/exercise equipment specialist: has seen Lacie Nichole and Pam Miranda Associated macro- and microvascular complications: None Risk factors for atherosclerotic disease: High LDL Family history of diabetes: None Patient Active Problem List Diagnosis ??? Type 1 diabetes mellitus ([facility]) ??? Smoker ??? Pure hypercholesterolemia Past Medical History: Diagnosis Date ??? Diabetes mellitus ([facility]) 2008 eye exam annually ??? Kidney stones ??? hematuria & adbominal pain Past Surgical History: Procedure Laterality Date ??? WISDOM TOOTH EXTRACTION Allergies: Levemir [insulin detemir] Social History Socioeconomic History ??? Marital status: Spouse name: None ??? Number of children: None ??? Years of education: None ??? Highest education level: None Occupational History ??? None Social Needs ??? Financial resource strain: None ??? Food insecurity: Worry: None Inability: None ??? Transportation needs: Medical: None Non-medical: None Tobacco Use ??? Smoking status: Current Every Day Smoker Packs/day: 0.25 ??? Smokeless tobacco: Current User Substance and Sexual Activity ??? Alcohol use: No Comment: occasional ??? Drug use: No ??? Sexual activity: Yes Partners: Male control/protection: Injection Lifestyle ??? Physical activity: Days per week: None Minutes per session: None ??? Stress: None Relationships ??? Social connections: Talks on phone: None Gets together: None Attends scientology service: None Active member of club or organization: None Attends meetings of clubs or organizations: None Relationship status: None ??? Intimate partner violence: Fear of current or ex partner: None Emotionally abused: None Physically abused: None Forced sexual activity: None Other Topics Concern ??? None Social History Narrative ??? None Family History Problem Relation Age of Onset [...] systems reviewed and are negative. Physical Examination: BP 115/71 Pulse 78 Ht 157.5 cm (62.01) Wt 60.8 kg (134 lb) BMI 24.50 kg/m?? Constitutional: Oriented to person, place, and time. Appears well-developed and well-nourished. Comfortable. No distress. Well-developed woman in no acute distress. Heart lung sounds unremarkable without carotid bruit. Neck supple without thyromegaly. Laboratory Data: Labs done 1219 at her PCPs office in [facility] creatinine 0.63, GFR greater than 600, total cholesterol 200, triglycerides 102, HDL 59, LDL 120, urine microalbumin/creatinine ratio less than 0.6, no TSH found Results for CAROLYN SOSA ( ) as of 03/21/2019 12:34 Ref. Range 12/02/2015 08:53 12/02/2015 09:39 01/12/2017 [...] Value Date TSH 1.03 01/12/2017 Assessment: Carolyn Sosa is a 38 y.o. female 1. Type 1 diabetes mellitus. 38-year-old female with Type 1 DM with suboptimal glucose control,but fewer lows now that she is back on the Omni pod pump and DEXCOM G5 sensor. She is now working in the [place] area commuting from [place] 2 days /wk working at home the other 3 days. , and has 4 children so very busy home and work. Medtronic Insulin pump was stopped due to rashes and infections. She works very hard to manageher blood sugars. Glucose still climbs some after breakfast and dinner. Needs a stronger CHO ratio No signs of micro or macrovascular disease. BP stable no proteinuria KENDRICK or ARB not indicated - Deferred to PCP LDL-improved now slightly under. Motivated to avoid a statin , so recommend defer for now and recheck in spring. No recent TSH found but clinically euthyroid Plan: tsh ordered to be done at [facility]. Be more aggressive with breakfast and dinner bolus ? 6 or 7:1. F/U in 4 months Lorraine Figueroa NP 03/20/2019 I spent a total of 25 minutes in face to face time with this patient, and 15 minutes of that time was spent in counseling and coordination of care as described in This progress note documented in this encounter Plan of Treatment Not on file documented as of this encounter Procedures Procedure Name Priority Date/Time Associated Diagnosis Comments POCT HEMOGLOBIN A1C, INTERFACED Routine 03/20/2019 15:36 EDT Type 1 diabetes mellitus without complication ([facility]) documented in this encounter Results * (ABNORMAL) POCT HEMOGLOBIN A1C, INTERFACED (03/20/2019 15:36 EDT) Hemoglobin A1C, POC Interfaced 7.4(H) <5.7 % 03/20/2019 16:05 EDT [facility] cutter head sharpener ID [id number] 03/20/2019 16:05 T [facility] Comment: For Hgb A1c values =>10%, a venous blood measurement in the main laboratory for confirmation is available. Reference Range: <5.7% Normal 5.7-6.4% Prediabetes =>6.5% Diagnostic for diabetes (if confirmed) Goals for glycemic control in diabetes ADA 2017 For non adults with diabetes: ?? Target <7.0% For children and adolescents with type 1 diabetes: ?? Target <7.5% More or less stringent targets may be appropriate for individual patients. Test performed at Endocrinology Blood specimen (specimen) BLOOD SPECIMEN / Unknown 03/20/2019 15:36 EDT 03/20/2019 16:05 EDT us Lorraine Henry DAIRY WORKER POINT OF CARE TEST ORDERABL ES Final Result [facility] [address] [place] [address] documented in this encounter Visit Diagnoses Diagnosis Type 1 diabetes mellitus without complication ([facility])- Primary Type I (juvenile type) diabetes mellitus without mention of complication, not stated as uncontrolled documented in this encounter Care Teams Chiropractic Assistant Relationship Specialty Start Date End Date Huseyin Zazueta MD [address] [place] [id number] PCP - General 07/16/09 documented as of this encounter
--- OUTSIDE RECORDS SUMMARY | 2024-05-02 15:18 | XMS_ITS | Encounter Summary ---
Author Organization [facility] Address [address] [place] [address] Care Team Providers Care Closed Circuit Screen Watcher Name Role Phone Huseyin Zazueta MD Primary Care Provider [phone] Reason for Visit * Reason Onset Date Comments DME 10/03/2018 Dexcom - CMN CGM Encounter Details Date Type Department Care Team (Late st Contact Info) Description 10/03/2018 Telephone [facility] Endocrinology - [facility] [address] [place] [address] Lorraine Figueroa NP [address] [facility] [address] [place] [address] DME (Dexcom - CMN CGM) Social History Tobacco Use Types Packs/Day Years [...] encounter Miscellaneous Notes * Telephone Encounter - Raleigh Evans - 10/03/2018 1610 EDT [phone] 10.03.18. documented in this encounter Plan of Treatment Not on file documented as of this encounter Visit Diagnoses Not on filedocumented in this encounter Care Teams Closed Circuit Screen Watcher Relationship Specialty Start Date End Date Huseyin Zazueta MD [address] [place] [id number] PCP - General 07/16/09 documented as of this encounter
--- OUTSIDE RECORDS SUMMARY | 2024-05-02 15:18 | XMS_ITS | Encounter Summary ---
Author Organization [facility] Address [address] [place] [address] Care Team Providers Care Hvac Design Engineer Name Role Phone Huseyin Zazueta MD Primary Care Provider Encounter Details Date Type Department Care Team (Late st Contact Info) Description 04/10/2019 Results Only [facility] [phone] Wendy Mejia MD [address] [place] [id number] Social History Tobacco Use Types Packs/Day Years [...] Name Priority Date/Time Associated Diagnosis Comments PAP TEST- RESULT ONLY Routine 04/10/2019 0:00 EST documented in this encounter Results * PAP TEST- RESULT ONLY (04/10/2019 0:00 EST) Pathology Report: CYTOPATHOLOGY REPORT Reports generated via electronic interface contain original data; however they are lacking the format of the original report. Caution should be taken when reading/interpreti ng unformatted reports. Name: ? CAROLYN SOSA ? Accession #: ? [id number] : ? 1980 (Age: 38) ??F ?Collect Date: ? 04/10/2019 Location: ? [facility] ? Receive Date: ? 04/12/2019 Provider: ?WENDY MEJIA MD Copy to: ? Specimen/Source: ?Pap Test, Cervix/Endocervix, ThinPrep Imaging System with manual evaluation Last Menstrual Period: ? Unknown ? SPECIMEN ADEQUACY ? Satisfactory for Evaluation - transformation zone component present GENERAL CATEGORIZATION ? Epithelial Cell Abnormality INTERPRETATION ? Squamous Cell Abnormality - High grade squamous intraepithelial lesion (HSIL). EDUCATIONAL NOTES/RECOMMENDATI ONS ? [facility] recommends following ASCCP's 2012 Updated Consensus Guidelines for the Management of Abnormal Cervical Cancer Screening Tests and Cancer Precursors (JLGTD, 2013; 17(5):S1-S27). ??Consensus guidelines are available online at www.asccp.org. ? Document reviewed and electronically signed by: ? WENDY TREJO MD ? Report Date: ??04/13/2019 17:[address] [facility] 04/10/2019 04/12/2019 us Wendy Mejia MD PATHOLOGY ORDERABLES Final R esult [facility] [address] [place] [address] documented in this encounter Visit Diagnoses Not on filedocumented in this encounter Care Teams Hvac Design Engineer Relationship Specialty Start Date End Date Huseyin Zazueta MD [address] [place] [address] PCP - General 07/16/09 documented as of this encounter
--- OUTSIDE RECORDS SUMMARY | 2024-05-02 15:18 | XMS_ITS | Encounter Summary ---
Author Organization [facility] Address [address] [place] [address] Care Team Providers Care Transmitter Engineer In Charge Name Role Phone Huseyin Zazueta MD Primary Care Provider [phone] Reason for Visit * Reason Onset Date Comments Medications Refill 08/21/2021 Encounter Details Date Type Department Care Team (Late st Contact Info) Description 08/21/2021 Telephone [facility] Endocrinology - [facility] [address] [place] [address] Kaley Lopez, CHERYLE 62 [facility] [address] [place] [phone] Medications Refill Social History Tobacco Use [...] Last Filled Start Date End Date insulin aspart U-100 (NOVOLOG U-100 INSULIN ASPART) 100 unit/mL injectionIndicati ons:Type 1 diabetes mellitus with hypoglycemia and without coma (HCC-CMS) INJECT 50 UNITS SUBCUTANEOUSLY DIRECTED VIA CONTINUOUS INSULIN PUMP 50 mL 3 2 08/27/19 documented in this encounter Miscellaneous Notes * Telephone Encounter - Eufemia Hayden RN - 08/25/2021 1316 EDT Orders validated and automatic refill request was processed. Eufemia Hayden RN * Telephone Encounter - Kassy King MA - 08/21/2021 0853 EDT Images from the original note were not included. We received a fax from [employer] requesting a refill for NOVOLOG VIA 100UNIT/ML 10.00. Refill said it not suppose to until 12/17/21. Please review appropriately thank you. documented in this encounter Plan of Treatment Not on file documented as of this encounter Visit Diagnoses Diagnosis Type 1 diabetes mellitus with hypoglycemia and without coma (HCC-CMS)- Primary Type I (juvenile type) diabetes mellitus with other specified manifestations, not stated as uncontrolled documented in this encounter Discontinued Medications Medication Sig Discontinue Reason Start Date End Da te insulin aspart U-100 (NOVOLOG U-100 INSULIN ASPART) 100 unit/mL injectionIndications: Type 1 diabetes mellitus with hypoglycemia and without coma (HCC-CMS) INJECT 50 UNITS SUBCUTANEOUSLY DIRECTED VIA CONTINUOUS INSULIN PUMP Reorder 12/17/2020 08/25/2021 documented as of this encounter Care Teams Transmitter Engineer In Charge Relationship Specialty Start Date End Date Huseyin Zazueta MD [address] [place] [address] PCP - General 07/16/09 documented as of this encounter
--- OUTSIDE RECORDS SUMMARY | 2024-05-02 15:18 | XMS_ITS | Encounter Summary ---
Author Organization [facility] Address [address] [place] [address] Care Team Providers Care Neon Pumper Name Role Phone Huseyin Zazueta MD Primary Care Provider [phone] Encounter Details Date Type Department Care Team (Late st Contact Info) Description 03/12/2019 Orders Only [facility] Endocrinology - [address] [address] Alexei Peña MD [address] [place] [address] Social History Tobacco Use Types Packs/Day Years [...] on filedocumented in this encounter Care Teams Neon Pumper Relationship Specialty Start Date End Date Huseyin Zazueta MD [address] [place] [address] PCP - General 07/16/09 documented as of this encounter
--- OUTSIDE RECORDS SUMMARY | 2024-05-02 15:18 | XMS_ITS | Encounter Summary ---
Author Organization [facility] Address [address] [place] [address] Care Team Providers Care Tail Board Man Name Role Phone Huseyin Zazueta MD Primary Care Provider [phone] Reason for Visit * Reason Onset Date Comments DME 01/27/2022 Encounter Details Date Type Department Care Team (Late st Contact Info) Description 01/27/2022 Telephone [facility] Endocrinology - [facility] [address] [place] [address] Kaley Lopez, CHERLYE 62 [facility] [address] [place] [phone] DME Social History Tobacco Use Types Packs/Day Years [...] Telephone Encounter - Kassy King MA - 01/27/2022 0920 EDT Faxed [facility] for Pods to [phone] on 01/27/22 documented in this encounter Plan of Treatment Not on file documented as of this encounter Visit Diagnoses Not on filedocumented in this encounter Care Teams Tail Board Man Relationship Specialty Start Date End Date Huseyin Zazueta MD [address] [place] [address] PCP - General 07/16/09 documented as of this encounter
--- OUTSIDE RECORDS SUMMARY | 2024-05-02 15:18 | XMS_ITS | Encounter Summary ---
Author Organization [facility] Address [address] [place] [address] Care Team Providers Care Cellar Packer Name Role Phone Huseyin Zazueta MD Primary Care Provider [phone] Reason for Visit * Reason Onset Date Comments DME 12/14/2021 DME 12/14/2021 [facility] [employer] - Dexcom and diabetic supplies Encounter Details Date Type Department Care Team (Late st Contact Info) Description 12/14/2021 Telephone [facility] Endocrinology - [facility] [address] [place] [address] Kaley Lopez, CHERYLE 62 [facility] [address] [place] [phone] DME; DME ([facility] [employer] - Dexcom and diabetic supplies) Social History Tobacco Use Types Packs/Day Years [...] encounter Miscellaneous Notes * Telephone Encounter - Aury Jolley MA - 12/14/2021 1504 EDT Received incoming fax from [employer] for Dexcom/Diabetic supplies. Paperwork has been entered into [employer]. * Telephone Encounter - Magdalena Salazar - 12/14/2021 1149 EDT Patient calling to discuss ordering her Dexcom sensors and transmitters. Please call back documented in this encounter Plan of Treatment Not on file documented as of this encounter Visit Diagnoses Not on filedocumented in this encounter Care Teams Cellar Packer Relationship Specialty Start Date End Date Huseyin Zazueta MD [address] [place] [address] PCP - General 07/16/09 documented as of this encounter
--- OUTSIDE RECORDS SUMMARY | 2024-05-02 15:18 | XMS_ITS | Encounter Summary ---
Author Organization [facility] Address [address] [place] [address] Care Team Providers Care Director Of Enrollment Name Role Phone Huseyin Zazueta MD Primary Care Provider [phone] Encounter Details Date Type Department Care Team (Late st Contact Info) Description 04/16/2020 Results Only [facility] [address] [place] [address] Jon Blanco MD 111 [facility], [address] [place] [address] Social History Tobacco Use Types Packs/Day Years [...] Priority Date/Time Associated Diagnosis Comments PAP TEST (GYNECOLOGICAL CYTOLOGY) - [facility] Routine 04/16/2020 12:25 EST documented in this encounter Results * PAP TEST (GYNECOLOGICAL CYTOLOGY) - [facility] (04/16/2020 12:25 EST) Cytology Review ? (NOTE) NAME: CAROLYN SOSA /AGE/SEX: 1980 (Age: 39) ?? F CLIENT: [facility] Pathology ORDER HCP: Jon Blanco ([facility]) DATE COLLECTED: 04/16/2020 DATE RECEIVED: 04/17/2020 DATE REPORTED: 04/25/2020 LOCATION: PU / CT OR PATHOLOGIST: Thalia Omalley MD INTERPRETATION: SPECIMEN ADEQUACY: A. ??SATISFACTORY FOR EVALUATION; Endocervical/trans formation zone component present. DESCRIPTIVE DIAGNOSIS: A. ??EPITHELIAL CELL ABNORMALITY ? SQUAMOUS CELL ?High-Grade Squamous Intraepithelial Lesion (HSIL). This Pap test was evaluated with the assistance of the ThinPrep Pap Test Imaging System. SPECIMEN SOURCE: A: ??Cervical- Endocervical RECEIVED: thin prep vial x 1 DATE OF LAST MENSTRUATION: NOT PROVIDED MENSTRUAL/PREG. HISTORY: Not given PREVIOUS TREATMENT: Not given PRIORITY: Screening Pap PERTINENT CLINICAL DATA: Hx of HGSIL: 04/10/2019 COMMENT #1: [id number] [facility] 04/16/2020 12:2 5 EST 04/17/2020 12:25 EST us Jon Blanco MD PATHOLOGY ORDERABLES Fi nal Result [facility] documented in this encounter Visit Diagnoses Not on filedocumented in this encounter Care Teams Director Of Enrollment Relationship Specialty Start Date End Date Huseyin Zazueta MD [address] [place] [address] PCP - General 07/16/09 documented as of this encounter
--- OUTSIDE RECORDS SUMMARY | 2024-05-02 15:18 | XMS_ITS | Encounter Summary ---
Author Organization [facility] Address [address] [place] [address] Care Team Providers Care Pharmacy Buyer Name Role Phone Huseyin Zazueta MD Primary Care Provider [phone] Reason for Visit * Reason Onset Date Comments Medications Refill 06/26/2018 Encounter Details Date Type Department Care Team (Late st Contact Info) Description 06/26/2018 Refill [facility] Endocrinology - [facility] [address] [place] [address] Lorraine Figueroa NP 62 [facility] [address] [place] [address] Medications Refill Social History Tobacco [...] Start Date End Date insulin aspart U-100 (NOVOLOG) 100 unit/mL injection 40 Units by subcutaneous - insulin pump route continuous. 40 mL 3 06/26/2018 0 documented in this encounter Plan of Treatment Not on file documented as of this encounter Visit Diagnoses Not on filedocumented in this encounter Discontinued Medications Medication Sig Discontinue Reason Start Date End Da te insulin aspart U-100 (NOVOLOG) 100 unit/mL injection Inject 40 Units into the skin continuous. Reorder 06/23/2018 06/26/2018 documented as of this encounter Care Teams Pharmacy Buyer Relationship Specialty Start Date End Date Huseyin Zazueta MD [address] [place] [address] PCP - General 07/16/09 documented as of this encounter
--- OUTSIDE RECORDS SUMMARY | 2024-05-02 15:18 | XMS_ITS | Encounter Summary ---
Author Organization [facility] Address [address] [place] [address] Care Team Providers Care Radio Tester Name Role Phone Huseyin Zazueta MD Primary Care Provider [phone] Encounter Details Date Type Department Care Team (Latest Contact Info) Description 03/12/2019 15:20 EDT Procedure visit [facility] Endocrinology - [facility] [address] [place], [place] [id number] Lorraine Figueroa NP 62 [facility] [address] [place] [address] Alexei Peña MD [address] [place] [address] Phlebotomy, [facility] Type 1 diabetes mellitus with hyperglycemia (HCC-CMS) (Primary Dx) Discharge Disposition: Auto Discharge Social History Tobacco Use Types Packs/Day Years [...] 08/23/2017 8:59 EDT documented in this encounter Discharge Diagnoses Diagnosis E10.65 Type 1 diabetes mellitus with hyperglycemia-E10.65[ICD-10-CM] documented in this encounter Discharge Disposition Disposition Code Departure Means Destination Auto Discharge documented in this encounter Progress Notes * Raleigh Evans - 03/12/2019 1520 EDT Venipuncture preformed for CMP, Lipid profile Per orders of Sandra Daigle MD Diagnosis of E10.65 I was supervised by Keysha Montoya DO who was present and immediately available in the office suite. Raleigh Evans 03/12/2019 15:56 Additional Non-blood specimens collected (Urines not charged for at time of collection at [facility]): Urine Albumin documented in this encounter Miscellaneous Notes * Result Encounter Note - Sandra Daigle MD - 03/12/2019 1520 EDT Lipids at target No proteinuria documented in this encounter Plan of Treatment Not on file documented as of this encounter Procedures Procedure Name Priority Date/Time Associated Diagnosis Comments URINE [id number] RATIO (ACR) Routine 03/12/2019 15:56 EDT Type 1 diabetes mellitus with hyperglycemia ([facility]-CMS) LIPID PROFILE (INCLUDES CHOLESTEROL, TRIGLYCERIDES, HDL, LDL) Routine 03/12/2019 15:56 EDT Type 1 diabetes mellitus with hyperglycemia ([facility]-CMS) COMPREHENSIVE METABOLIC PANEL (CMP) Routine 03/12/2019 15:56 EDT Type 1 diabetes mellitus with hyperglycemia ([facility]-CMS) documented in this encounter Results * LIPID PROFILE (INCLUDES CHOLESTEROL, TRIGLYCERIDES, HDL, LDL) (03/12/2019 15:56 EDT) Cholesterol 178 mg/dl 03/12/2019 20:19 [facility] Comment: Desirable:<200 Borderline High:200-239 High:>bi=641 Triglycerides 113 mg/dl 03/12/2019 20:19 [facility] Comment: Normal:<150 Borderline High:150-199 High:200-499 Very High:>ht=875 HDL 57 mg/dl 03/12/2019 20:19 [facility] Comment: Low:<40 Normal:40-60 Desirable: >60 LDL, Calculated 98 mg/dl 9 20:19 [facility] Comment: Optimal:<100 Near Optimal:100-129 Borderline High:130-159 High:160-189 Very High:>jq=216 Chol/HDL Ratio 3.1 03/12/2019 20:19 [facility] Fasting? Unknown 03/12/2019 20:19 [facility] Non HDL Cholesterol 121 mg/dl 03/12/2019 20:19 [facility] Comment: Desirable:<130 Borderline:130-159 High: 160-189 Very High: >pe=331 Blood specimen (specimen) BLOOD SPECIMEN / Unknown 03/12/2019 15:56 EDT 03/12/2019 19:47 EDT us Sandra Daigle MD CHEMISTRY & BLOOD GAS TOO PATEL Final Result [facility] [address] [place] [address] * ALBUMIN, URINE (03/12/2019 15:56 EDT) Creatinine, Urn [place] 72.5 mg/dl 03/12/2019 23:27 [facility] Ur Albumin mg/dl <0.6 mg/dL 03/12/20 19 23:52 [facility] Comment:New Vitros 5600 Meth odology in use 10/05/2017 Urine Albumin to Creatinine Ratio <8.3 ug/mg Crea 03/12/2019 23:52 [facility] Comment: Normal: <30 ug/mg creatinine Moderately increased albuminuria: 30-300 ug/mg creatinine Severly increased albuminuria: >300 ug/mg creatinine [employer] 5600 Methodology in use 10/05/2017 Urine specimen (specimen) URINE / Unknown 03/12/2019 15:56 EDT 03/12/2019 19:47 EDT Sandra Daigle MD CHEMISTRY & BLOOD GAS TOO PATEL Final Result [facility] [address] [place] [address] * (ABNORMAL) COMPREHENSIVE METABOLIC PANEL (CMP) (03/12/2019 15:56 EDT) Potassium 3.9 3.5 - 5.0 mEq/L 03/12/2019 20:19 [facility] Sodium 135(L) 136 - 145 mEq/L 03/12/2019 20:19 [facility] Chloride 102 96 - 110 mEq/L 03/12/2019 20:19 [facility] CO2 26 22 - 32 mEq/L 03/12/2019 20:19 [facility] Total Alkaline Phosphatase 74 38 - 126 U/L 03/12/2019 20:19 [facility] Bilirubin, Total <0.5 <1.4 mg/dl 03/12/20 19 20:19 [facility] AST 19 15 - 46 U/L 03/12/2019 20:19 [facility] ALT 11 <34 U/L 03/12/2019 20:19 [facility] Albumin 4.1 3.4 - 4.9 g/dl 03/12/2019 20:19 [facility] Total Protein 6.9 6.3 - 8.2 g/dl 03/12/2019 20:19 [facility] Creatinine 0.59 0.52 - 1.04 mg/dl 03/12/2019 20:19 [facility] GFR, Calculated 117 >60 ml/min/1.7 3m2 03/12/2019 20:[address] [facility] Comment: eGFR calculated using CKD-EPI equation for non Americans. Multiply eGFR by 1.16 for Americans. BUN 10 10 - 26 mg/dl 03/12/2019 20:[address] [facility] Calcium 9.3 8.5 - 10.5 mg/dl 03/12/2019 20:[address] [facility] Calculated Calcium 9.2 8.5 - 10.5 mg/dl 03/12/2019 20:19 [facility] Glucose, Serum 213(H) 70 - 100 mg/dl 03/12/2019 20:19 [facility] Fasting? Unknown 03/12/2019 20:19 [facility] Blood specimen (specimen) BLOOD SPECIMEN / Unknown 03/12/2019 15:56 EDT 03/12/2019 19:47 EDT Sandra Daigle MD CHEMISTRY & BLOOD GAS TOO PATEL Final Result [facility] [address] [place] [address] documented in this encounter Visit Diagnoses Diagnosis Type 1 diabetes mellitus with hyperglycemia ([facility]-CMS)- Primary Type I (juvenile type) diabetes mellitus without mention of complication, not stated as uncontrolled documented in this encounter Care Teams Radio Tester Relationship Specialty Start Date End Date Huseyin Zazueta MD [address] [place] [address] PCP - General 07/16/09 documented as of this encounter
--- OUTSIDE RECORDS SUMMARY | 2024-05-02 15:18 | XMS_ITS | Encounter Summary ---
Author Organization [facility] Address [address] [place] [address] Care Team Providers Care Campaign Fundraiser Name Role Phone Huseyin Zazueta MD Primary Care Provider [phone] Reason for Visit * Reason Onset Date Comments Medications Refill 01/28/2020 Encounter Details Date Type Department Care Team (Late st Contact Info) Description 01/28/2020 Refill [facility] Endocrinology - [facility] [address] [place] [address] Lorraine Figueroa NP [address] [facility] [address] [place] [address] Medications Refill Social History Tobacco [...] Refills Last Filled Start Date End Date ketone urine reagent strip (KETOSTIX) Use 1 Strip as directed as needed (hyperglycemia). if BG is greater than 250 (for 2 consecutive readings), if ill, and/or if vomiting. 50 Each 3 01/28/2020 documented in this encounter Miscellaneous Notes * Telephone Encounter - Norma Caldera - 01/28/2020 1342 EDT Medication(s) Requested ketone urine reagent strip (KETOSTIX) glucagon (GLUCAGON EMERGENCY KIT, HUMAN,) 1 mg emergency injection kit accu-chek catina test strips Pharmacy [facility] - [place], [place] - [address] AT Portal to [facility] Sites?[phone] Next Visit Date Visit date not found Out of Medication? No Norma Werner 01/28/2020 13:42 Endo Refill Line documented in this encounter Plan of Treatment Not on file documented as of this encounter Visit Diagnoses Not on filedocumented in this encounter Discontinued Medications Medication Sig Discontinue Reason Start Date End Da te ketone urine reagent strip (KETOSTIX) Use 1 Strip as directed as needed (hyperglycemia). if BG is greater than 250 (for 2 consecutive readings), if ill, and/or if vomiting. Reorder 06/14/2017 01/28/2020 documented as of this encounter Care Teams Campaign Fundraiser Relationship Specialty Start Date End Date Huseyin Zazueta MD [address] [place] [address] PCP - General 07/16/09 documented as of this encounter
--- OUTSIDE RECORDS SUMMARY | 2024-05-02 15:18 | XMS_ITS | Encounter Summary ---
Author Organization [facility] Address [address] [place] [address] Care Team Providers Care Disintegrator Operator Name Role Phone Huseyin Zazueta MD Primary Care Provider [phone] Encounter Details Date Type Department Care Team (Late st Contact Info) Description 08/26/2021 Orders Only [facility] Endocrinology - [address] [address] Eufemia Hayden RN Type 1 diabetes mellitus with hypoglycemia and without coma (HCC-CMS) (HCC) (Primary Dx) Social History Tobacco Use Types [...] Refills Last Filled Start Date End Date NOVOLOG U-100 INSULIN ASPART 100 unit/mL injectionIndicati ons:Type 1 diabetes mellitus with hypoglycemia and without coma (HCC-CMS) INJECT 50 UNITS SUBCUTANEOUSLY DIRECTED VIA CONTINUOUS INSULIN PUMP 150 mL 3 2 08/27/19 documented in this encounter Progress Notes * Eufemia Hayden, EDITH - 08/26/2021 1312 EDT Received message indicating generic insulin aspart would not be covered. Updated order to reflect ERNST for Novolog brans and processed order to pharmacy. Eufemia Hayden RN documented in this encounter Plan of Treatment [...] SUBCUTANEOUSLY DIRECTED VIA CONTINUOUS INSULIN PUMP Reorder 08/25/2021 08/26/2021 documented as of this encounter Care Teams Disintegrator Operator Relationship Specialty Start Date End Date Huseyin Zazueta MD [address] [place] [address] PCP - General 07/16/09 documented as of this encounter
--- OUTSIDE RECORDS SUMMARY | 2024-05-02 15:18 | XMS_ITS | Encounter Summary ---
Author Organization [facility] Address [address] [place] [address] Care Team Providers Care Jewelry Estimator Name Role Phone Huseyin Zazueta MD Primary Care Provider [phone] Reason for Visit * Reason Onset Date Comments DME 03/05/2022 [facility] Omnipod 6 kit & Pods Encounter Details Date Type Department Care Team (Late st Contact Info) Description 03/05/2022 Telephone [facility] Endocrinology - [place] [address] [place] [address] Kaley Lopez, CHERYLE 62 [facility] [address] [place] [phone] DME ([facility] Omnipod 6 kit & Pods) Social History Tobacco Use Types Packs/Day Years [...] Last Filled Start Date End Date insulin pump cart,automated,BT (OMNIPOD 5 G6 PODS, GEN 5,) cartridgeIndicatio ns:Type 1 diabetes mellitus with hypoglycemia and without coma ([facility]-CMS) Inject 1 Cartridge into the skin every 72 hours. E10.9 Insulin Dependent 30 Each 3 03/12/2022 insulin pump cart,auto,BT-cntr (OMNIPOD 5 G6 INTRO KIT, GEN 5,) cartridgeIndicatio ns:Type 1 diabetes mellitus with hypoglycemia and without coma ([facility]-CMS) Use 1 Cartridge as directed continuous. E10.9 Insulin Dependent 1 Each 03/12/2022 2 documented in this encounter Miscellaneous Notes * Addendum Note - Kaley Lopez NP - 03/12/2022 1450 EDTAddended by: KALEY LOPEZ on: 03/12/2022 14:50 Modules accepted: Orders * Addendum Note - Nayely Leigh RN - 03/10/2022 1450 EDTAddended by: NAYELY LEIGH on: 03/10/2022 14:50 Modules accepted: Orders * Telephone Encounter - Nayely Leigh RN - 03/10/2022 1448 EDT Routing scripts to provider to approve. Nayely Leigh RN * Telephone Encounter - Aury Jolley MA - 03/05/2022 1110 EDT Scanned to patient chart Rx from [facility] for Omnipod 5 kit & Pods. Routing to nursing documented in this encounter Plan of Treatment Not on file documented as of this encounter Visit Diagnoses Diagnosis Type 1 diabetes mellitus with hypoglycemia and without coma (HCC-CMS)- Primary Type I (juvenile type) diabetes mellitus with other specified manifestations, not stated as uncontrolled documented in this encounter Care Teams Jewelry Estimator Relationship Specialty Start Date End Date Huseyin Zazueta MD [address] [place] [address] PCP - General 07/16/09 documented as of this encounter
--- OUTSIDE RECORDS SUMMARY | 2024-05-02 15:18 | XMS_ITS | Encounter Summary ---
Author Organization [facility] Address [address] [place] [address] Care Team Providers Care Market Research Executive Name Role Phone Huseyin Zazueta MD Primary Care Provider [phone] Reason for Visit * Reason Onset Date Comments Paperwork request 12/22/2020 DME 12/22/2020 Encounter Details Date Type Department Care Team (Late st Contact Info) Description 12/22/2020 Telephone [facility] Endocrinology - [facility] [address] [place] [address] Kaley Lopez NP [address] [address] Paperwork request; DME Social History Tobacco Use Types Packs/Day [...] Telephone Encounter - Aury Jolley MA - 12/23/2020 1357 EDT E faxed parachute order for dexcom g6/diabetic supplies with progress note from 12/17/20 to [phone] * Telephone Encounter - Taniya Lowery - 12/22/2020 1612 EDT Celeste called from [employer] to inform she is faxing over a new request for office notes and a prescription refill request for patient. documented in this encounter Plan of Treatment Not on file documented as of this encounter Visit Diagnoses Not on filedocumented in this encounter Care Teams Market Research Executive Relationship Specialty Start Date End Date Huseyin Zazueta MD [address] [place] [address] PCP - General 07/16/09 documented as of this encounter
--- OUTSIDE RECORDS SUMMARY | 2024-05-02 15:18 | XMS_ITS | Encounter Summary ---
Author Organization [facility] Address [address] [place] [address] Care Team Providers Care Carbon Electrodes Supervisor Name Role Phone Huseyin Zazueta MD Primary Care Provider [phone] Reason for Visit * Reason Comments Diabetes Encounter Details Date Type Department Care Team (Latest Contact Info) Description 06/18/2021 16:30 EST Telemedicine [facility] Endocrinology - [facility] [address] [place] [address] Kaley Lopez, CHERYLE [address] [facility] [address] [place] [address] Type 1 diabetes mellitus with hypoglycemia and without coma (HCC-CMS) (HCC) (Primary Dx); Pure hypercholesterolemia Social History Tobacco [...] Refills Last Filled Start Date End Date glucagon 1 mg/0.2 mL auto-injectorIndic ations:Type 1 diabetes mellitus with hypoglycemia and without coma (HCC-CMS) Inject 1 mg into the skin as needed (hypoglycemia ). 0.4 mL 1 06/18/2021 atorvastatin (LIPITOR) 10 mg tabletIndications: Type 1 diabetes mellitus with hypoglycemia and without coma (HCC-CMS) Take 1 Tablet by mouth daily. 90 Tablet 3 06/18/2021 insulin glargine (LANTUS SOLOSTAR/SEMGLEE) 100 unit/mL (3 mL) injection penIndications:Typ e 1 diabetes mellitus with hypoglycemia and without coma ([facility]) Inject 22-30 Units into the skin at bedtime for 90 days. For pump failure 15 mL 06/18/2021 2 documented in this encounter Progress Notes * Kaley Lopez, SUPERVISOR LEAD REFINERY - 06/18/2021 1630 EST Images from the original note were not included. [facility] Diabetes Follow-Up Note Carolyn Portillo presents zoom: CHIEF COMPLAINT: Chief Complaint Patient presents with [...] avivaplus meter, acetaminophen, blood glucose, dexcom g6 transmitter, glucagon, ibuprofen, insulin aspart u-100, insulin glargine, insulin pen needles 31g x 5/16, and ketostix. Carolyn Portillo reports the following hysterectomy in 07/2020. She has applied to continue to work fully remote. Dexcom 38 % in target, 31% 180-250%, 28% > 250, 3% 54-69. She reports her bG have been higher lately . She has lows after correction, and overall high trend overnight. I can see her dexcom informaiton but do not have omnipod. She is working on trying to eat more low carb meals. She does have a consistent spike post meal. Review of Systems Constitutional: Negative for malaise/fatigue [...] use: No Comment: occasional PHYSICAL EXAMINATION: Vitals: There were no vitals taken for this visit. BMI: There is no height or weight on file to calculate BMI. Physical Exam General: alert oriented x4, not in acute distress Breathing: unlabored on room air, normal effort, SNOW REMOVER :no gross neurological deficits identified Psych: Normal mood and affect, speech normal, judgment and insight normal LABS: 03/19/2021 A1c 8.7 Lab Results Component Value Date HGBA1C 9.5 [...] diabetes mellitus with hypoglycemia and without coma ([facility]) ([facility]) PLAN: Medications: Adjust basals overnight: Basal 1: 12a 0.65 3a 0.9 12p 1.05 10p 1.0 Basal 2 (uses while has menses) 12a 0.45 3a 0.85 12p 0.9 10p 0.85 Spikes post meals, will adjust carb ratio 1:60* I:carb 12a 1:5* 4pm 1:4* She is holding on upgrade as she would like to eventually upgrade to closed look omnipod/dexcom Will send lantus for pump failure, she does not tolerate levemir d/t welts at injection site Hyperlipidemia: She has not been on her statin in a long time Will send Atorvastatin 10mg daily Recommend aspirin daily. Insulin: Insulin stabilization is required:yes Non-insulin: diet. Recommended: none. Glucose monitoring dexcom. Referred to diabetic education program. no Referred to manager appointment no. Patient referred to eye rn complex care for annual dilated eye exam. Lifestyle [...] time of the visit. Kaley Lopez NP 06/18/2021 17:01 Addendum: TELEMEDICINE VIDEO VISIT Today's visit was provided through telemedicine video conferencing: I have reviewed the appropriateness of using video technology with the patient with regards to today's visit. The location of the patient : Home Patient location state: Visit Location State: [place] The location of the provider: Office Provider location state: Visit Location State: [place] The following people and their roles were present for today's visit: Appointment Provider: Kaley Lopez NP Laurie M Davignon, NP The concept of ???Telemedicine?? has been described to the patient.? Patienthas been informed of the anticipated benefits and possible risks.? Patient understands the information provided regarding telemedicine, has had the opportunity to ask questions about this information, and all questions have been answered to patient???s satisfaction. Patient consents for the use of telemedicine in his/her medical care and authorizes the transmission of any relevant medical information to providers and their staff involved in patient???s medical or mental health care. Patient understands that they may be responsible for copays, deductible or coinsurance for this service. documented in this encounter Plan of Treatment Not on file documented as of this encounter Visit Diagnoses Diagnosis Type 1 diabetes mellitus with hypoglycemia and without coma ([facility])- Primary Type I (juvenile type) diabetes mellitus with other specified manifestations, not stated as uncontrolled Pure hypercholesterolemia documented in this encounter Discontinued Medications Medication Sig Discontinue Reason Start Date End Da te glucagon 1 mg emergency injection kit Inject 1 mg into the muscle as needed for Low Blood Sugar. Formulary change 02/25/2020 06/18/2021 insulin glargine (LANTUS SOLOSTAR) 100 unit/mL (3 mL) injection penIndications:Type 1 diabetes mellitus with hypoglycemia and without coma (HCC-CMS) Inject 30 Units into the skin at bedtime for 90 days. Reorder 12/17/2020 06/18/2021 documented as of this encounter Care Teams Carbon Electrodes Supervisor Relationship Specialty Start Date End Date Huseyin Zazueta MD [address] [place] [address] PCP - General 07/16/09 documented as of this encounter
--- OUTSIDE RECORDS SUMMARY | 2024-05-02 15:18 | XMS_ITS | Encounter Summary ---
Author Organization [facility] Address [address] [place] [address] Care Team Providers Care Production Estimator Name Role Phone Huseyin Zazueta MD Primary Care Provider [phone] Encounter Details Date Type Department Care Team (Late st Contact Info) Description 10/13/2022 Lab Requisition [facility] Pathology & Laboratory Medicine - [address] [address] Outr Resulting Lab, Provider Social History Tobacco [...] Procedure Name Priority Date/Time Associated Diagnosis Comments HIV 1/2 ANTIGEN AND ANTIBODY, 4TH GENERATION Routine 10/13/2022 7:52 EDT documented in this encounter Results * HIV 1/2 ANTIGEN AND ANTIBODY, 4TH GENERATION (10/13/2022 7:52 EDT) HIV 1 and 2 Antibody/p24 Antigen, 4th Generation Negative Negative 10/14/2022 9:55 EDT [facility] Comment:If acute HIV-1 infec tion is suspected in a high risk patient, submit plasma specimen for HIV-1 RNA quantitation test. Blood VENOUS BLOOD / Unknown 10/13/2022 7:52 EDT 10/13/2022 17:22 EDT Narrative [facility] - 10/14/2022 9:55 EDT Fourth Generation assay performed on the Siemens Centaur XPT. us Provider Outr Resulting Lab IMMUNOLOGY AND SEROL OGY ORDERABLES Final Result [facility] [address] [place] [address] documented in this encounter Visit Diagnoses Not on filedocumented in this encounter Care Teams Production Estimator Relationship Specialty Start Date End Date Huseyin Zazueta MD [address] [place] [address] PCP - General 07/16/09 documented as of this encounter
--- OUTSIDE RECORDS SUMMARY | 2024-05-02 15:18 | XMS_ITS | Encounter Summary ---
Author Organization [facility] Address [address] [place] [address] Care Team Providers Care Marine Erector Name Role Phone Huseyin Zazueta MD Primary Care Provider [phone] Reason for Visit * Reason Onset Date Comments Medications Refill 06/04/2022 Encounter Details Date Type Department Care Team (Late st Contact Info) Description 06/04/[address] [facility] Endocrinology - [address] [address] Neil Britton MD [address] [place] [address] Medications Refill Social History Tobacco Use Types [...] Filled Start Date End Date insulin pump cart,auto,BT-cntr (OMNIPOD 5 G6 INTRO KIT, GEN 5,) cartridgeIndicatio ns:Type 1 diabetes mellitus with hypoglycemia and without coma ([facility]) Use 1 Cartridge as directed continuous. E10.9 Insulin Dependent 1 Each 06/04/2022 documented in this encounter Miscellaneous Notes * Telephone Encounter - Neil Britton MD - 06/04/2022 1740 EST Endocrine fellow commercial litigation attorney paged by patient for medication refill. Medication patient requests refill: insulin pump omnipod 5 G6 intro kit Refill sent to pharmacy, [facility] documented in this encounter Plan of Treatment Not on file documented as of this encounter Visit Diagnoses Diagnosis Type 1 diabetes mellitus with hypoglycemia and without coma ([facility])- Primary Type I (juvenile type) diabetes mellitus with other specified manifestations, not stated as uncontrolled documented in this encounter Discontinued Medications Medication Sig Discontinue Reason Start Date End Da te insulin pump cart,auto,BT-cntr (OMNIPOD 5 G6 INTRO KIT, GEN 5,) cartridgeIndications:Typ e 1 diabetes mellitus with hypoglycemia and without coma ([facility]) Use 1 Cartridge as directed continuous. E10.9 Insulin Dependent Reorder 03/12/2022 06/04/2022 documented as of this encounter Care Teams Marine Erector Relationship Specialty Start Date End Date Huseyin Zazueta MD [address] [place] [address] PCP - General 07/16/09 documented as of this encounter
--- OUTSIDE RECORDS SUMMARY | 2024-05-02 15:18 | XMS_ITS | Encounter Summary ---
Author Organization [facility] Address [address] [place] [address] Care Team Providers Care Developer Architect Name Role Phone Huseyin Zazueta MD Primary Care Provider Encounter Details Date Type Department Care Team (Late st Contact Info) Description 03/12/[address] [facility] Endocrinology - [facility] [address] [place] [address] Jeb Daigle MD [address] [facility] [address] [place] [address] Type 1 diabetes mellitus with hyperglycemia ([facility]) (Primary Dx) Social History Tobacco Use Types [...] on file documented as of this encounter Results * (ABNORMAL) COMPREHENSIVE METABOLIC PANEL (CMP) (03/12/2019 15:56 EDT) Potassium 3.9 3.5 - 5.0 mEq/L 03/12/2019 20:19 [facility] Sodium 135(L) 136 - 145 mEq/L 03/12/2019 20:19 [facility] Chloride 102 96 - 110 mEq/L 03/12/2019 20:19 [facility] CO2 26 22 - 32 mEq/L 03/12/2019 20:19 [facility] Total Alkaline Phosphatase 74 38 - 126 U/L 03/12/2019 20:19 [facility] Bilirubin, Total <0.5 <1.4 mg/dl 03/12/20 19 20:19 [facility] AST 19 15 - 46 U/L 03/12/2019 20:19 [facility] ALT 11 <34 U/L 03/12/2019 20:19 [facility] Albumin 4.1 3.4 - 4.9 g/dl 03/12/2019 20:19 [facility] Total Protein 6.9 6.3 - 8.2 g/dl 03/12/2019 20:19 [facility] Creatinine 0.59 0.52 - 1.04 mg/dl 03/12/2019 20:19 [facility] GFR, Calculated 117 >60 ml/min/1.7 3m2 03/12/2019 20:19 [facility] Comment: eGFR calculated using CKD-EPI equation for non Americans. Multiply eGFR by 1.16 for Americans. BUN 10 10 - 26 mg/dl 03/12/2019 20:19 [facility] Calcium 9.3 8.5 - 10.5 mg/dl 03/12/2019 20:19 [facility] Calculated Calcium 9.2 8.5 - 10.5 mg/dl 03/12/2019 20:19 [facility] Glucose, Serum 213(H) 70 - 100 mg/dl 03/12/2019 20:19 EDT [facility] Fasting? Unknown 03/12/2019 20:19 EDT [facility] Blood specimen (specimen) BLOOD SPECIMEN / Unknown 03/12/2019 15:56 EDT 03/12/2019 19:47 EDT us Jeb Daigle MD CHEMISTRY & BLOOD GAS ORDE RABLES Final Result Performing Organization Address City/[facility] Co de Phone Number [facility] [address] [place] [address] * ALBUMIN, URINE (03/12/2019 15:56 EDT) Creatinine, Urn Outing 72.5 mg/dl 03/12/2019 23:27 EDT [facility] Ur Albumin mg/dl <0.6 mg/dL 03/12/20 19 23:52 EDT [facility] Comment:New Vitros 5600 Meth odology in use 10/05/2017 Urine Albumin to Creatinine Ratio <8.3 ug/mg Crea 03/12/2019 23:52 EDT [facility] Comment: Normal: <30 ug/mg creatinine Moderately increased albuminuria: 30-300 ug/mg creatinine Severly increased albuminuria: >300 ug/mg creatinine New Vitros 5600 Methodology in use 10/05/2017 Urine specimen (specimen) URINE / Unknown 03/12/2019 15:56 EDT 03/12/2019 19:47 EDT us Jeb Daigle MD CHEMISTRY & BLOOD GAS ORDE RABLES Final Result Performing Organization Address [facility]/ZIP Co de Phone Number [facility] [address] [place] [address] * LIPID PROFILE (INCLUDES CHOLESTEROL, TRIGLYCERIDES, HDL, LDL) (03/12/2019 15:56 EDT) Cholesterol 178 mg/dl 03/12/2019 20:19 EDT [facility] Comment: Desirable:<200 Borderline High:200-239 High:>kp=943 Triglycerides 113 mg/dl 03/12/2019 20:19 [facility] Comment: Normal:<150 Borderline High:150-199 High:200-499 Very High:>do=251 HDL 57 mg/dl 03/12/2019 20:19 [facility] Comment: Low:<40 Normal:40-60 Desirable: >60 LDL, Calculated 98 mg/dl 9 20:19 [facility] Comment: Optimal:<100 Near Optimal:100-129 Borderline High:130-159 High:160-189 Very High:>id=348 Chol/HDL Ratio 3.1 03/12/2019 20:19 [facility] Fasting? Unknown 03/12/2019 20:19 [facility] Non HDL Cholesterol 121 mg/dl 03/12/2019 20:19 [facility] Comment: Desirable:<130 Borderline:130-159 High: 160-189 Very High: >sz=341 Blood specimen (specimen) BLOOD SPECIMEN / Unknown 03/12/2019 15:56 EDT 03/12/2019 19:47 EDT Jeb Daigle MD CHEMISTRY & [facility] Final Result [facility] [address] [place] [address] documented in this encounter Visit Diagnoses Diagnosis Type 1 diabetes mellitus with hyperglycemia ([facility])- Primary Type I (juvenile type) diabetes mellitus without mention of complication, not stated as uncontrolled documented in this encounter Care Teams Developer Architect Relationship Specialty Start Date End Date Huseyin Zazueta MD [address] [place] [address] PCP - General 07/16/09 documented as of this encounter
--- OUTSIDE RECORDS SUMMARY | 2024-05-02 15:18 | XMS_ITS | Encounter Summary ---
Author Organization [facility] Address [address] [place] [address] Care Team Providers Care Medart Operator Name Role Phone Huseyin Zazueta MD Primary Care Provider [phone] Reason for Visit * Reason Onset Date Comments Medications Refill 05/26/2020 Follow-up 06/04/2020 Encounter Details Date Type Department Care Team (Late st Contact Info) Description 05/26/2020 Refill [facility] Endocrinology - [facility] [address] [place] [address] Lorraine Figueroa NP [address] [facility] [address] [place] [address] Medications Refill; Follow-up Social History Tobacco Use Types Packs/Day Years [...] Date NOVOLOG U-100 INSULIN ASPART 100 unit/mL injection INJECT 40 UNITS SUBCUTANEOUSLY DIRECTED VIA CONTINUOUS INSULIN PUMP 40 mL 3 0 12/18/19 21 documented in this encounter Miscellaneous Notes * Telephone Encounter - Carmen Machado - 06/04/2020 1556 EST Medication(s) Requested NOVOLOG U-100 INSULIN ASPART 100 unit/mL injection Pharmacy [facility] - [place], [place] - [address] AT Portal to [facility] Sites?[phone] Next Visit Date Visit date not found Out of Medication? YES Carmen Machado 06/04/2020 15:56 documented in this encounter Plan of Treatment Not on file documented as of this encounter Visit Diagnoses Not on filedocumented in this encounter Discontinued Medications Medication Sig Discontinue Reason Start Date End Da te NOVOLOG U-100 INSULIN ASPART 100 unit/mL injection INJECT 40 UNITS SUBCUTANEOUSLY DIRECTED VIA CONTINUOUS INSULIN PUMP 06/14/2019 06/04/2020 documented as of this encounter Care Teams Medart Operator Relationship Specialty Start Date End Date Huseyin Zazueta MD [address] [place] [address] PCP - General 07/16/09 documented as of this encounter
--- OUTSIDE RECORDS SUMMARY | 2024-05-02 15:18 | XMS_ITS | Encounter Summary ---
Author Organization [facility] Address [address] [place] [address] Care Team Providers Care Rn Iv Therapy Name Role Phone Huseyin Zazueta MD Primary Care Provider [phone] Reason for Visit * Reason Onset Date Comments Appointment Related 10/27/2021 Encounter Details Date Type Department Care Team (Late st Contact Info) Description 10/27/2021 Telephone [facility] Endocrinology - [facility] [address] [place] [address] Kaley Lopez NP [address] [facility] [address] [place] [phone] Appointment Related Social History Tobacco Use Types Packs/Day Years [...] encounter Miscellaneous Notes * Telephone Encounter - Stacy Nick - 10/27/2021 0956 EDT Left voicemail to schedule Follow Up appointment with Kaley Lopez NP Patient is due anytime after 02/23/2022 Recall Letter Sent thru [facility] documented in this encounter Plan of Treatment Not on file documented as of this encounter Visit Diagnoses Not on filedocumented in this encounter Care Teams Rn Iv Therapy Relationship Specialty Start Date End Date Huseyin Zazueta MD [address] [place] [address] PCP - General 07/16/09 documented as of this encounter
--- OUTSIDE RECORDS SUMMARY | 2024-05-02 15:18 | XMS_ITS | Encounter Summary ---
Author Organization [facility] Address [address] [place] [address] Care Team Providers Care Toy Electric Train Repairer Name Role Phone Huseyin Zazueta MD Primary Care Provider [phone] Reason for Visit * Reason Onset Date Comments Medications Refill 01/22/2022 Encounter Details Date Type Department Care Team (Late st Contact Info) Description 01/22/2022 Telephone [facility] Endocrinology - [facility] [address] [place] [address] Kaley Lopez, CHERYLE [address] [facility] [address] [place] [phone] Medications Refill Social History Tobacco Use [...] encounter Miscellaneous Notes * Telephone Encounter - Laura Moe - 01/22/2022 1327 EDT Medication(s) Requested Omni pod Pharmacy [facility] - [place], [place] - [address] AT Portal to [facility]?[phone] Next Visit Date Visit date not found Last Office VisitVisit date not found Out of Medication? No Patient called the refill line. Circus Agent did not see omnipod in med list. Laura Moe 01/22/2022 13:28 documented in this encounter Plan of Treatment Not on file documented as of this encounter Visit Diagnoses Not on filedocumented in this encounter Care Teams Toy Electric Train Repairer Relationship Specialty Start Date End Date Huseyin Zazueta MD [address] [place] [address] PCP - General 07/16/09 documented as of this encounter
--- OUTSIDE RECORDS SUMMARY | 2024-05-02 15:18 | XMS_ITS | Encounter Summary ---
Author Organization [facility] Address [address] [place] [address] Care Team Providers Care Aerologist Name Role Phone Huseyin Zazueta MD Primary Care Provider [phone] Reason for Visit * Reason Onset Date Comments Pre-visit Orders 03/17/2021 labs @ [facility] Encounter Details Date Type Department Care Team (Late st Contact Info) Description 03/17/2021 Telephone [facility] Endocrinology - [facility] [address] [place] [address] Kaley Lopez, CHERYLE 62 [facility] [address] [place] [phone] Pre-visit Orders (labs @ [facility]) Social History Tobacco Use Types Packs/Day Years [...] encounter Miscellaneous Notes * Telephone Encounter - Sandra Rolle - 03/17/2021 0839 EDT Pt wants lab orders sent to [facility] So she can get her blood drawn today. Appt 03/23/21 w/ John. documented in this encounter Plan of Treatment Not on file documented as of this encounter Visit Diagnoses Not on filedocumented in this encounter Care Teams Aerologist Relationship Specialty Start Date End Date Huseyin Zazueta MD [address] [place] [address] PCP - General 07/16/09 documented as of this encounter
--- OUTSIDE RECORDS SUMMARY | 2024-05-02 15:18 | XMS_ITS | Encounter Summary ---
Author Organization [facility] Address [address] [place] [address] Care Team Providers Care Geology Technician Name Role Phone Huseyin Zazueta MD Primary Care Provider [phone] Reason for Visit * Reason Onset Date Comments Paperwork request 06/20/2020 DME 06/24/2020 INCOMING REQUEST FOR CMN Encounter Details Date Type Department Care Team (Late st Contact Info) Description 06/20/[address] [facility] Endocrinology - [facility] [address] [place] [address] Lorraine Figueroa NP 62 [facility] [address] [place] [phone] Paperwork request; DME (INCOMING REQUEST FOR CMN) Social History Tobacco Use Types Packs/Day Years [...] encounter Miscellaneous Notes * Telephone Encounter - Christos Peñaloza MA - 06/25/2020 1347 EST Electronically faxed [employer] CMN for CGM Therapy/CGM Supplies on 06/25/20 to [phone] * Telephone Encounter - Kassy King MA - 06/24/2020 1029 EST Received fax from [employer] requesting CMN to cover dexcom device. This form was printed and was placed in [facility] door to be sign. * Telephone Encounter - Norma Caldera - 06/20/2020 0947 EST Per caller, faxed over letter of medical necessity on 06.11.20. Hand Inserter Operator didn't see it had been received yet. Caller will refax to [phone]. Please fax back once received. documented in this encounter Plan of Treatment Not on file documented as of this encounter Visit Diagnoses Not on filedocumented in this encounter Care Teams Geology Technician Relationship Specialty Start Date End Date Huseyin Zazueta MD [address] [place] [address] PCP - General 07/16/09 documented as of this encounter
--- OUTSIDE RECORDS SUMMARY | 2024-05-02 15:18 | XMS_ITS | Encounter Summary ---
Author Organization [facility] Address [address] [place] [address] Care Team Providers Care Burlap Roll Coverer Name Role Phone Peter Hernández MD Primary Care Provider [phone] Encounter Details Date Type Department Care Team (Late st Contact Info) Description 01/12/2018 Results Only [facility]- [facility] [phone] Peter Hernández MD [address] [place] [address] Social History Tobacco Use Types Packs/Day Years [...] Diagnosis Comments PAP TEST- RESULT ONLY Routine 01/12/2018 0:00 EDT documented in this encounter Results * PAP TEST- RESULT ONLY (01/12/2018 0:00 EDT) Pathology Report: CYTOPATHOLOGY REPORT Reports generated via electronic interface contain original data; however they are lacking the format of the original report. Caution should be taken when reading/interpreti ng unformatted reports. Name: ? IAN CAROLYN F ? Accession #: ? [id number] ? : ? 1980 (Age: 37) ??F ?Collect Date: ? 01/12/2018 ? Location: ? [facility] ? Receive Date: ? 01/13/2018 ? Provider: PTEER HERNÁNDEZ MD Copy to: ? Final Report SPECIMEN ADEQUACY ? Satisfactory for Evaluation - transformation zone component present GENERAL CATEGORIZATION ? Epithelial Cell Abnormality INTERPRETATION ? Squamous Cell Abnormality - High grade squamous intraepithelial lesion (HSIL). EDUCATIONAL NOTES/RECOMMENDATI ONS ? [facility] recommends following ASCCP's 2012 Updated Consensus Guidelines for the Management of Abnormal Cervical Cancer Screening Tests and Cancer Precursors (JLGTD, 2013; 17(5):S1-S27). ??Consensus guidelines are available online at www.asccp.org. Last Menstrual Period: None Hormonal/Contracep tive status: Intrauterine device Previous Gynecologic Pathology: SHARMIN: HGSIL 6 months ago Treatment History: Colposcopy: Inflamtn Other: Additional clinical information: R87.618 Specimen/Source: ??Pap Test, Cervix, ThinPrep Imaging System with manual evaluation Document reviewed and electronically signed by: ? KWADWO MARCANO MD ? Report ??Date: 01/28/2018 11:34 HPV with Pap Test ? Date Ordered: ? 01/27/2018 ? Status: ?? Signed Out ?Date Complete: ? 01/31/2018 ? By: ??System Interface ? Date Reported: ? 01/31/2018 ? Interpretation RESULT: POSITIVE FOR HIGH OR INTERMEDIATE RISK HPV. E6 OR E7 mRNA from one or more types of HPV types 16,18,31, 33,35,39,45,51,52, 56,58,59,66, and 68 is detected by retail buyer mediated amplification. High and intermediate risk HPV types are associated with most squamous intraepithelial lesions and cervical cancers. Comments Document reviewed and electronically signed by: ? System Interface ? Report date: 01/31/2018 By the signature above, the attending physician certifies that he/she has personally conducted a gross and/or microscopic examination of the described specimens and rendered or confirmed the above diagnosis. End of Report [facility] 01/12/2018 01/13/2018 us Peter Hernández MD PATHOLOGY ORDERABLES Final Resu lt Performing Organization Address City/State/[facility] Co de Phone Number [facility] [address] [place] [address] documented in this encounter Visit Diagnoses Not on filedocumented in this encounter Care Teams Burlap Roll Coverer Relationship Specialty Start Date End Date Peter Hernández MD [address] [place] [address] PCP - General 07/16/09 documented as of this encounter
--- OUTSIDE RECORDS SUMMARY | 2024-05-02 15:18 | XMS_ITS | Encounter Summary ---
Author Organization [facility] Address [address] [place] [address] Care Team Providers Care Machine Sneller Name Role Phone Huseyin Zazueta MD Primary Care Provider [phone] Reason for Visit * Reason Comments Diabetes Encounter Details Date Type Department Care Team (Latest Contact Info) Description 10/21/2021 10:00 EDT Telemedicine [facility] Endocrinology - [facility] [address] [place] [address] Kaley Lopez, CHERYLE [address] [facility] [address] [place] [address] Type 1 diabetes mellitus with hypoglycemia and without coma (HCC-CMS) (HCC) (Primary Dx); Hyperlipidemia, unspecified hyperlipidemia type; Pure hypercholesterolemia Social History Tobacco Use Types [...] 08/23/2017 8:59 EDT documented in this encounter Progress Notes * Kaley Lopez, DOUGHMAKER - 10/21/2021 1000 EDT Images from the original note were not included. [facility] Diabetes Follow-Up Note Carolyn Portillo presents zoom: CHIEF COMPLAINT: No chief complaint on file. HPI: Carolyn Portillo has had diabetes since [...] the following prescription(s): accu-chek avivaplus meter, acetaminophen, atorvastatin, blood glucose, glucagon, ibuprofen, basaglar kwikpen, insulin pen needles 31g x 5/16, ketostix, and novolog u-100 insulin aspart. Carolyn Portillo reports the following hysterectomy in 07/2020. She has applied to continue to work fully remote. Dexcom 51 % in target, 22% 180-250%, 15% > 250, 12% 54-69. She reports her bG have been higher lately . She has lows after correction, and overall high trend overnight. I can see her dexcom informaiton but do not have omnipod traditional. She is working on trying to eat more low carbmeals. She has rebound hyperglycemia after lows She had an A1c at PCP a couple of mos ago Review of Systems Constitutional: Negative for malaise/fatigue [...] Breathing: unlabored on room air, normal effort, PER DIEM INTERPRETER :no gross neurological deficits identified Psych: Normal [...] with hypoglycemia and without coma ([facility]) ([facility]) PLAN: Medications: She has been in contact with [employer], regarding omnipod 5, she was told she would need a PA and the paperwork would be sent to the office, currently she gets her supplies from [employer]. basals Programs: Basal 1: 12a 0.65 3a 0.9 12p 1.05 10p 1.0 Basal 2 (uses while has menses) * she will start using this one, as her lows are at 12%, goal if < 4% 12a 0.45 3a 0.85 12p 0.9 10p 0.85 Spikes post meals, will adjust carb ratio 1:60 I:carb 12a 1:5 4pm 1:4 Will send lantus for pump failure, she does not tolerate levemir d/t welts at injection site Hyperlipidemia: on Atorvastatin 10mg daily Recommend aspirin daily. Insulin: Insulin stabilization is required:yes Non-insulin: diet. Recommended: none. Glucose monitoring dexcom. Referred to diabetic education program. no Referred to ornamental ironworker no. Patient referred to eye home care associate for annual dilated eye exam. Lifestyle modifications: [...] time of the visit. Kaley Lopez NP 10/21/2021 8:59 TELEMEDICINE VIDEO VISIT Today's visit was provided through telemedicine video conferencing: I have reviewed the appropriateness of using video technology with the patient with regards to today's visit. The location of the patient : Home Patient location state: Visit Location State: [place] The location of the provider: Office Provider location state: Visit Location State: [place] The following people and their roles were [...] with hypoglycemia and without coma ([facility])- Primary Type I (juvenile type) diabetes mellitus with other specified manifestations, not stated as uncontrolled Hyperlipidemia, unspecified hyperlipidemia type Pure hypercholesterolemia documented in this encounter Care Teams Machine Sneller Relationship Specialty Start Date End Date Huseyin Zazueta MD [address] [place] [address] PCP - General 07/16/09 documented as of this encounter
--- OUTSIDE RECORDS SUMMARY | 2024-05-02 15:18 | XMS_ITS | Encounter Summary ---
Author Organization [facility] Address [address] [place] [address] Care Team Providers Care Public Administration Professor Name Role Phone Huseyin Zazueta MD Primary Care Provider [phone] Encounter Details Date Type Department Care Team (Late st Contact Info) Description 07/17/2020 Lab Requisition [facility] Pathology & Laboratory Medicine - [address] [address] Outr Resulting Lab, Provider Social History Tobacco [...] Procedure Name Priority Date/Time Associated Diagnosis Comments ZZCOVID-19 TEST [facility] PCR Today 07/17/2020 9:22 EST COVID-19 TESTING Routine 07/17/2020 9:22 EST documented in this encounter Results * COVID-19 TEST [facility] PCR (07/17/2020 9:22 EST) Swab ENTIRE NASOPHARYNX / Unknown 07/17/2020 9:22 EST 07/17/2020 16:21 EST us Provider Outr Resulting Lab MICROBIOLOGY - GENER AL ORDERABLES Final Result [facility] [address] [place] [address] * COVID-19 TESTING (07/17/2020 9:22 EST) COVID-19 rt-PCR Result Negative Negative 07/18/2020 13:10 EST [facility] Comment: This test was developed and its performance characteristics determined by [facility]. It has not been cleared or approved by the US Food and Drug Administration. FDA does not require this test to go through premarket FDA review. This test is used for clinical purposes. It should not be regarded as investigational or for research. This laboratory is certified under the Clinical Laboratory Improvement Amendments (CLIA) as qualified to perform high complexity clinical laboratory testing. This test is based on the CDC COVID-19 Emergency Use Authorization (EUA) assay, with minor modification as defined by the FDA Performed on the UpSpringo 7 Pro RT-PCR System. This test has not been FDA cleared or approved. This test has been authorized by FDA under an EUA for use by authorized laboratories. This test has been authorized only for detection of nucleic acid from 2019-nCoV, not for any other viruses or pathogens. This test is only authorized for the duration of the declaration that circumstances exist justifying the authorization of emergency use of in vitro diagnostic tests for detection and/or diagnosis of 2019-nCoV under section 564(b)(1) of Act, 21 U.S.C ?? 360bbb-3(b) (1), unless the authorization is terminated or revoked sooner. Negative results do not preclude 2019-nCoV infection and should not be used as the sole basis for treatment or other patient management decisions. Negative results must be combined with clinical observations, patient history, and epidemiological information. Performing Lab [facility] Lab 07/18/2020 13:10 EST [facility] Swab 07/17/2020 9:22 EST 07/17/2020 16:21 EST us Provider Outr Resulting Lab MICROBIOLOGY - GENER AL ORDERABLES Final Result [facility] [address] [place] [address] documented in this encounter Visit Diagnoses Not on filedocumented in this encounter Care Teams Public Administration Professor Relationship Specialty Start Date End Date Huseyin Zazueta MD [address] [place] [address] PCP - General 07/16/09 documented as of this encounter
--- OUTSIDE RECORDS SUMMARY | 2024-05-02 15:18 | XMS_ITS | Encounter Summary ---
Author Organization [facility] Address [address] [place] [address] Care Team Providers Care Rice Drier Operator Name Role Phone Huseyin Zazueta MD Primary Care Provider [phone] Reason for Visit * Reason Onset Date Comments DME 08/09/2019 Dexcom - CMN Encounter Details Date Type Department Care Team (Late st Contact Info) Description 08/09/2019 Telephone [facility] Endocrinology - [facility] [address] [place] [address] Lorraine Figueroa NP [address] [facility] [address] [place] [address] DME (Dexcom - CMN) Social History Tobacco Use Types Packs/Day [...] * Telephone Encounter - Raleigh Evans - 08/09/2019 1055 EST Faxed CMN for CGM therapy to [facility] at [phone] on 08.09.19. documented in this encounter Plan of Treatment Not on file documented as of this encounter Visit Diagnoses Not on filedocumented in this encounter Care Teams Rice Drier Operator Relationship Specialty Start Date End Date Huseyin Zazueta MD [address] [place] [address] PCP - General 07/16/09 documented as of this encounter
--- OUTSIDE RECORDS SUMMARY | 2024-05-02 15:18 | XMS_ITS | Encounter Summary ---
Author Organization [facility] Address [address] [place] [address] Care Team Providers Care Rubber Tire And Tubes Supervisor Name Role Phone Huseyin Zazueta MD Primary Care Provider [phone] Reason for Visit * Reason Onset Date Comments Medications Refill 12/18/2020 Encounter Details Date Type Department Care Team (Late st Contact Info) Description 12/18/2020 Refill [facility] Endocrinology - [facility] [address] [place] [address] Kaley Lopez, CHERYLE [address] [facility] [address] [place] [address] Medications Refill Social History Tobacco Use [...] encounter Miscellaneous Notes * Telephone Encounter - Lisbet Lowery RN - 12/18/2020 1531 EDT Call to: Carolyn Unable to leave voicemail. LISBET LOWERY RN 12/18/2020 15:32 Looking to ask about allergy to Lantus? * Telephone Encounter - Kaley Lopez NP - 12/18/2020 1507 EDT levemir is indicated as an allergy and lantus was previously in her medlist, would you please confirm lantus is tolerable for pt. * Telephone Encounter - Kassy King MA - 12/18/2020 1420 EDT Images from the original note were not included. We received a fax from [facility] requesting a refill for LANTUS SOLO PEN 100 U/ML 15ml. Please review appropriately. documented in this encounter Plan of Treatment Not on file documented as of this encounter Visit Diagnoses Diagnosis Type 1 diabetes mellitus with hypoglycemia and without coma ([facility])- Primary Type I (juvenile type) diabetes mellitus with other specified manifestations, not stated as uncontrolled documented in this encounter Care Teams Rubber Tire And Tubes Supervisor Relationship Specialty Start Date End Date Huseyin Zazueta MD [address] [place] [address] PCP - General 07/16/09 documented as of this encounter
--- OUTSIDE RECORDS SUMMARY | 2024-05-02 15:18 | XMS_ITS | Encounter Summary ---
Author Organization Health system Address [address] [place] [address] Care Team Providers Care Parcel Contractor Name Role Phone Huseyin Zazueta MD Primary Care Provider [phone] Reason for Visit * Reason Onset Date Comments DME 11/25/2020 Documentation fo r progress note DME 11/25/2020 [facility] cgm/diabetic supplies Encounter Details Date Type Department Care Team (Late st Contact Info) Description 11/25/2020 Telephone [facility] Endocrinology - [address] [address] Kaley Lopez, CHERYLE [address] [facility] [address] [place] [address] DME (Documentation for progress note ); DME ([facility] cgm/diabetic supplies) Social History Tobacco Use Types Packs/Day [...] Telephone Encounter - Aury Jolley MA - 11/25/2020 1617 EDT E faxed progress note to [employer] from 03/05/20 per insurance. Received incoming fax from [facility] [employer] for [facility] for cgm/diabetic supplies. Paperwork has been entered into [email or web address]. documented in this encounter Plan of Treatment Not on file documented as of this encounter Visit Diagnoses Not on filedocumented in this encounter Care Teams Parcel Contractor Relationship Specialty Start Date End Date Huseyin Zazueta MD [address] [place] [address] PCP - General 07/16/09 documented as of this encounter
--- OUTSIDE RECORDS SUMMARY | 2024-05-02 15:18 | XMS_ITS | Encounter Summary ---
Author Organization [facility] Address [address] [place] [address] Care Team Providers Care Head Doffer Name Role Phone Huseyin Zazueta MD Primary Care Provider [phone] Reason for Visit * Reason Comments Other Encounter Details Date Type Department Care Team (Late st Contact Info) Description 06/14/2019 [facility] Endocrinology - [facility] [address] [place] [address] Lorraine Figueroa NP [address] [facility] [address] [place] [address] Other Social History Tobacco Use Types Packs/Day Years [...] CONTINUOUS INSULIN PUMP 40 mL 3 0 06/04/20 20 documented in this encounter Plan of Treatment Not on file documented as of this encounter Visit Diagnoses Not on filedocumented in this encounter Discontinued Medications Medication Sig Discontinue Reason Start Date End Da te insulin aspart U-100 (NOVOLOG) 100 unit/mL injection 40 Units by subcutaneous - insulin pump route continuous. 06/26/2018 06/14/2019 documented as of this encounter Care Teams Head Doffer Relationship Specialty Start Date End Date Huseyin Zazueta MD [address] [place] [address] PCP - General 07/16/09 documented as of this encounter
--- OUTSIDE RECORDS SUMMARY | 2024-05-02 15:18 | XMS_ITS | Encounter Summary ---
Author Organization [facility] Address [address] [place] [address] Care Team Providers Care Statement Services Representative Name Role Phone Huseyin Zazueta MD Primary Care Provider [phone] Reason for Visit * Reason Comments Other Encounter Details Date Type Department Care Team (Late st Contact Info) Description 02/27/2021 [facility] Endocrinology - [facility] [address] [place] [address] Kaley Lopez, CHERYLE [address] [facility] [address] [place] [address] Other Social History Tobacco Use [...] glucose (ACCU-CHEK POLI PLUS TEST STRP) test stripsIndications: Type 1 diabetes mellitus with hypoglycemia and without coma (HCC-CMS) Use 4 Strips as directed daily. E10.65 400 Each 3 03/02/2021 documented in this encounter Plan of Treatment Not on file documented as of this encounter Visit Diagnoses Diagnosis Type 1 diabetes mellitus with hypoglycemia and without coma (HCC-CMS)- Primary Type I (juvenile type) diabetes mellitus with other specified manifestations, not stated as uncontrolled documented in this encounter Discontinued Medications Medication Sig Discontinue Reason Start Date End Da te blood glucose (ACCU-CHEK POLI PLUS TEST STRP) test stripsIndications:Type 1 diabetes mellitus with hypoglycemia and without coma (HCC-CMS) 1 Strip by misc (non-drug; combo route) route 3 times daily. 12/17/2020 03/02/2021 documented as of this encounter Care Teams Statement Services Representative Relationship Specialty Start Date End Date Huseyin Zazueta MD [address] [place] [address] PCP - General 07/16/09 documented as of this encounter
--- OUTSIDE RECORDS SUMMARY | 2024-05-02 15:18 | XMS_ITS | Encounter Summary ---
Author Organization [facility] Address [address] [place] [address] Care Team Providers Care Skein Tier Name Role Phone Huseyin Zazueta MD Primary Care Provider [phone] Reason for Visit * Reason Comments Diabetes Encounter Details Date Type Department Care Team (Latest Contact Info) Description 06/23/2018 14:10 EST [facility] - [facility] [address] [place] [address] Lorraine Figueroa NP [address] [facility] [address] [place] [address] Type 1 diabetes mellitus without [...] Sign Reading Time Taken Comments Blood Pressure 113/58 06/23/2018 1359 EST Pulse 78 06/23/2018 1359 EST Temperature - - Respiratory Rate - - Oxygen Saturation - - Inhaled Oxygen Concentration - - Weight 59.2 kg (130 lb 9.6 oz) 06/23/[address] Height 157.5 cm (5' 2.01) 06/23/2018 1359 EST Body Mass Index 23.88 06/23/2018 1359 EST documented in this encounter Functional Status * [...] Patient Instructions * Patient Instructions* Lorraine Figueroa NP - 06/23/2018 14:10 EST Try to bolus sooner before meals including when eat out. If still gettng lows at PM decrease basal till 3 Am to 0.6 units./hr. F/U Early May Recommend statin documented in this encounter Ordered Prescriptions Prescription Sig Dispense Quantity Refills Last Filled Start Date End Date ACCU-CHEK POLI PLUS METER Use as directed as needed (glucose monitoring). 1 Each 06/23/2018 insulin aspart U-100 (NOVOLOG) 100 unit/mL injection Inject 40 Units into the skin continuous. 40 mL 3 06/23/2018 9 insulin aspart U-100 (NOVOLOG FLEXPEN U-100 INSULIN) 100 unit/mL injectable pen Inject 6 units at breakfast, 7-12 units with lunch and dinner. 1:10 carb ratio 30 mL 3 06/23/2018 9 ACCU-CHEK POLI test strips Use 3 Strips as directed daily. 300 Each 3 06/23/2018 0 documented in this encounter Progress Notes * Beckie Syed - 06/23/2018 1410 EST * Lorraine Figueroa NP - 06/23/2018 1410 EST Endocrinology Follow-up Note 12/02/2015 HPI: Carolyn Portillo is a 37 y.o. female seen in follow-up in the adult endocrine clinic for her type 1 diabetes. She was last seen in clinic 08/23/2017 when hemoglobin A1c was 8.3%. Please see note for details. She had previously been on an insulin pump, but developed welts at the catheter sites and they dislodged. She also had some site infections despite trying different catheters, and problems withcatheters pulling out of her thighs where she preferred to wear it. However, she has tried a dummy omni-pod set without issues and decided to get 1. In addition decided to go back on the DEXCOM CGM sensor now she has better insurance coverage. She has been afraid exercise without it for safety reasons. She started pump therapy 09/20/2017 with support from our educators and the DEXCOM G5 which she loves.. Hemoglobin A1c 1219 at her PCPs was 7.4%, the lowest she has seen in a long time PMH: ?1. Obstetrics History: : 6 Para: [...] lb 6 oz?? male? 6?? live ?? 2013?? 36 weeks ? Female ? Diabetes since 07/2009. During , she was admitted at gestational age 25 weeks with DKA and received steroids for lung maturity. She had significant spikes in her glucoses around that time which did stabilize. She was seen through her by our endocrine team in the [facility] clinic. She was started on an insulin pump & sensor 08/30 by our educator. At 36 weeks she had an emergency ., because of concerns the fetus had congenital defects. She has 4 children athome. She uses a Mirena IUD. Current diabetes regimen includes NovoLog insulin in her pump Omni pod insulin pump basal rates as follows midnight 0.7 units/h, 5 AM 1.0, noon 0.95, 4 PM 1.050,10 PM 0.8 for a total of 22 units of basal per day. Carbohydrate: Insulin ratio is 8: 1 Sensitivity is 50: 1 for blood sugars over 130. Active insulin is 4 hours She has a prescription for Basaglar as needed for pump failure. She tries to bolus, 30 minutes pre-meal, since boluses seem to take longer to bring sugars down, then expected. However has not been recently especially when eating out.. She eats a lot of home-cooked meals making it harder to calculate carbs. She also tries to use the dual wave. She does not snack in the evening but will take a correction bolus at bed if needed Her sensor low alarm is set at 70 Sensor download shows average glucose 178 with a SD of 75. 3% of her readings are < 70, 57% 70-180, 40% > 180 Her glucose is reasonably steady overnight and then climbs little after breakfast dropping back to about 140 in the afternoon. Then at dinner climbs to about 180 peaking 89 and then dropping to [id number] by midnight. Her sensor shows some lows between midnight and 8 AM plus a few more between 11 and 12 midnight Average blood glucose is 271 with a SD of 89 She uses a total of 36.6 units of insulin per day With 15.5 units or 42% as bolus and 58% or 21 units as basal Her weight fluctuates minimally. She continues to smoke. She started at age 14 and has tried, to quit cold turkey, and Chantrix. Her teenage children are pressuring her to, has talked with [employer] in the past. She has a glucagon kit at home and her children and boyfriend how to use it. She carries skittles at all times. . Physical activity: Fairly active, walks likes to outdoors. But afraid to go for walk, still she has a sensor since sugars drop so fast. Previous referral to dietitian/improvement rn: has seen Lacie Nichole and Pam Miranda Associated macro- and microvascular complications: None Risk factors for atherosclerotic disease: High LDL Family history of diabetes: None Patient Active Problem List Diagnosis ??? Type 1 diabetes mellitus ([facility]) ??? Smoker ??? Pure hypercholesterolemia Past Medical History: Diagnosis Date ??? Diabetes mellitus ([facility]) 2008 eye exam annually ??? Kidney stones ??? hematuria & adbominal pain Past Surgical History: Procedure Laterality Date ??? WISDOM TOOTH EXTRACTION Allergies: Levemir [insulin detemir] Social History Socioeconomic History ??? Marital status: Spouse name: None ??? Number of children: None ??? Years of education: None ??? Highest education level: None Social Needs ??? Financial resource strain: None ??? Food insecurity - worry: None ??? Food insecurity - inability: None ??? Transportation needs - medical: None ??? Transportation needs - non-medical: None Occupational History ??? None Tobacco Use ??? Smoking status: Current Every Day Smoker Packs/day: 0.25 ??? Smokeless tobacco: Current User Substance and Sexual Activity ??? Alcohol use: No Comment: occasional ??? Drug use: No ??? Sexual activity: Yes Partners: Male control/protection: Injection Other Topics Concern ??? None Social History [...] reviewed and are negative. Physical Examination: BP 113/58 Pulse 78 Ht 157.5 cm (62.01) Wt 59.2 kg (130 lb 9.6 oz) BMI 23.88 kg/m?? Constitutional: Oriented to person, place, and time. Appears well-developed and well-nourished. Comfortable. No distress. Well-developed woman in no acute distress. Heart lung sounds unremarkable without carotid bruit. Neck supple without thyromegaly. Laboratory Data: Labs done 1219 at her PCPs office in [facility] creatinine 0.63, GFR greater than 600, total cholesterol 200, triglycerides 102, HDL 59, LDL 120, urine microalbumin/creatinine ratio less than 0.6, no TSH found Lab Results Component Value Date NA 141 01/12/2017 K 4.2 01/12/2017 CL 105 01/12/2017 CO2 25 01/12/2017 BUN 7 (L) 01/12/2017 CREATININE 0.55 01/12/2017 SERGLU 131 (H) 01/12/2017 CALCIUM 9.6 01/12/2017 CALCCA 9.4 01/12/2017 Lab Results Component Value Date CHOL 189 01/12/2017 TRIG 93 01/12/2017 HDL 50 01/12/2017 LDLBASE 120 01/12/2017 CHOLHDL 3.8 01/12/2017 Lab Results Component Value Date WBC 12.10 09/07/2013 Lab Results Component Value Date TP 6.0 (L) 12/02/2015 LABALBU 3.4 12/02/2015 TBIL <0.5 12/02/2015 ALT 21 12/02/2015 AST 14 (L) 12/02/2015 ALKPHOS 77 12/02/2015 Is is as there is Lab Results Component Value Date TSH 1.03 01/12/2017 Assessment: Carolyn Portillo is a 37 y.o. female 1. Type 1 diabetes mellitus. 37-year-old female with Type 1 DM with slightly improved glucose control and overall fewer lows nowthat she is back on the Omni pod pump and DEXCOM G5 sensor. She is now working in the [place] area commuting from [facility], and has 4 children so very busy home and work. Medtronic Insulin pump was stopped due to rashes and infections. She works very hard to manage her blood sugars. I recommended trying to bolus up to half an hour before meals and to carry glucose so when waiting in a restaurant can bolus ahead of her meal. Follow-up should be easier now that she is working nearby No signs of micro or macrovascular disease. BP stable no proteinuria KENDRICK or ARB not indicated - Deferred to PCP Elevated LDL-agree with PCP should start a statin. No recent TSH found but clinically euthyroid Plan: Try to bolus sooner before meals including when eat out. If still gettng lows at PM decrease basal till 3 Am to 0.6 units./hr. F/U Early May Recommend statin Lorraine Figueroa NP 06/23/2018 I spent a total of 25 minutes in face to face time with this patient, and 15 minutes of that time was spent in counseling and coordination of care as described in This progress note documented in this encounter Plan of Treatment Not on file documented as of this encounter Results * (ABNORMAL) POCT HEMOGLOBIN A1C, INTERFACED (10/25/2018 15:02 EDT) Hemoglobin A1C, POC Interfaced 7.3(H) <5.7 % 10/25/2018 15:22 EDT [facility] industrial economics teacher ID [id number] 10/25/2018 15:22 EDT [facility] Comment: For Hgb A1c [...] Blood specimen (specimen) BLOOD SPECIMEN / Unknown 10/25/2018 15:02 EDT 10/25/2018 15:22 EDT us Lorraine Figueroa NP POINT OF CARE TEST ORDERABL ES Final Result [facility] [address] [place] [address] documented in this encounter Visit Diagnoses Diagnosis Type 1 diabetes mellitus without complication (HCC-CMS)- Primary Type I (juvenile type) diabetes mellitus without mention of complication, not stated as uncontrolled documented in this encounter Discontinued Medications Medication Sig Discontinue Reason Start Date End Da te blood glucose meter (ONETOUCH VERIO IQ METER)Indications:Type 1 diabetes mellitus without complication ([facility]) Use as directed as needed (glucose monitoring). Insurance does not cover 01/12/2017 06/23/2018 blood glucose (ONETOUCH VERIO) test stripsIndications:Type 1 diabetes mellitus without complication ([facility]) 4-6 units daily Insurance does not cover 06/14/2017 06/23/2018 insulin aspart (NOVOLOG FLEXPEN) 100 unit/mL injectable pen Inject 6 units at breakfast, 7-12 units with lunch and dinner. 1:10 carb ratio Reorder 06/14/2017 06/23/2018 insulin aspart U-100 (NOVOLOG FLEXPEN U-100 INSULIN) 100 unit/mL injectable pen Inject 6 units at breakfast, 7-12 units with lunch and dinner. 1:10 carb ratio 06/23/2018 06/23/2018 documented as of this encounter Care Teams Skein Tier Relationship Specialty Start Date End Date Huseyin Zazueta MD [address] [place] [address] PCP - General 07/16/09 documented as of this encounter
--- OUTSIDE RECORDS SUMMARY | 2024-05-02 15:18 | XMS_ITS | Encounter Summary ---
Author Organization [facility] Address [address] [place] [address] Care Team Providers Care [employer] Name Role Phone Huseyin Zazueta MD Primary Care Provider [phone] Reason for Visit * Reason Onset Date Comments DME 11/20/2020 [facility] cgm/di abetic supplies Encounter Details Date Type Department Care Team (Late st Contact Info) Description 11/20/[address] [facility] Endocrinology - [address] [address] Kaley Lopez, CHERYLE [address] [address] DME ([facility] cgm/diabetic supplies) Social History Tobacco Use Types [...] Telephone Encounter - Aury Jolley MA - 11/20/2020 1614 EDT Received incoming fax from [employer] for [employer]O cgm/diabetic supplies Paperwork has been entered into [employer]. documented in this encounter Plan of Treatment Not on file documented as of this encounter Visit Diagnoses Not on filedocumented in this encounter Care Teams [employer] Relationship Specialty Start Date End Date Huseyin Zazueta MD [address] [place] [address] PCP - General 07/16/09 documented as of this encounter
--- OUTSIDE RECORDS SUMMARY | 2024-05-02 15:18 | XMS_ITS | Encounter Summary ---
Author Organization [facility] Address [address] [place] [address] Care Team Providers Care Leather Tacker Name Role Phone Huseyin Zazueta MD Primary Care Provider [phone] Reason for Visit * Reason Onset Date Comments DME 10/06/2018 Encounter Details Date Type Department Care Team (Late st Contact Info) Description 10/06/2018 Telephone [facility] Endocrinology - [facility] [address] [place] [address] Lorraine Figueroa NP [address] [facility] [address] [place] [address] DME Social History Tobacco Use Types [...] encounter Miscellaneous Notes * Telephone Encounter - Beckie Syed - 10/06/2018 0845 EDT [employer]- [facility] faxed on 10.06.18 for CGM and supplies. Scanned. Charting notes and A1C electronically faxed on 10.06.18. documented in this encounter Plan of Treatment Not on file documented as of this encounter Visit Diagnoses Not on filedocumented in this encounter Care Teams Leather Tacker Relationship Specialty Start Date End Date Huseyin Zazueta MD [address] [place] [address] PCP - General 07/16/09 documented as of this encounter
--- OUTSIDE RECORDS SUMMARY | 2024-05-02 15:18 | XMS_ITS | Encounter Summary ---
Author Organization [facility] Address [address] [place] [address] Care Team Providers Care Business Education Professor Name Role Phone Huseyin Zazueta MD Primary Care Provider [phone] Reason for Visit * Reason Comments Diabetes Encounter Details Date Type Department Care Team (Latest Contact Info) Description 10/25/2018 14:20 EDT Office Visit [facility] Endocrinology - [facility] [address] [place] [address] Lorraine Figueroa NP 62 [facility] [address] [place] [address] Type 1 diabetes mellitus without [...] Sign Reading Time Taken Comments Blood Pressure 107/65 10/25/2018 1505 EDT Pulse 82 10/25/2018 1505 EDT Temperature - - Respiratory Rate - - Oxygen Saturation - - Inhaled Oxygen Concentration - - Weight 58.5 kg (129 lb) 10/25/2018 1505 EDT Height 157.5 cm (5' 2.01) 10/25/2018 1505 EDT Body Mass Index 23.59 10/25/2018 1505 EDT documented in this encounter Functional Status [...] * Patient Instructions* Lorraine Figueroa Np - 10/25/2018 14:20 EDT Basal change noon -4 Pm 1.05 More aggressive breakfast and dinner bolus Try a temp basal of 10% more from 6 or 8 PM to 10 PM. Recommend start a stain Fasting labs in January tsh, BMP, lipids, LFT's and urine microalbumin/cr F/U in 4 months documented in this encounter Progress Notes * Aury Jolley - 10/25/2018 1420 EDT Fingerstick blood sample obtained for POCT Hemoglobin A1C performed for this DOS at the order of Lorraine Figueroa NP/Andrew Campos MD * Lorraine Figueroa NP - 10/25/2018 1420 EDT Endocrinology Follow-up Note 12/02/2015 HPI: Carolyn Sosa is a 37 y.o. female seen in follow-up in the adult endocrine clinic for her type 1 diabetes. She was last seen in clinic 06/23/2018 when hemoglobin A1c was 7.4%. Please see note for details. She had previously been on an insulin pump, but developed welts at the catheter sites and they dislodged. She also had some site infections despite trying different catheters, and problems withcatheters pulling out of her thighs where she preferred to wear it. However, she has tried a dummy omni-pod set without issues and decided to get 1. She has been afraid exercise without it for safetyreasons. She started pump therapy 09/20/2017 with support from our educators and the [employer] G5 jermaine avila.. Hemoglobin A1c 05/24 at her PCPs was 7.4%, the lowest [...] our endocrine team in the high risk [facility] clinic. She was started on an insulin pump & sensor 08/30 by our educator. At 36 weeks she had an emergency ., because of concerns the fetus had congenital defects. She has 4 children athome. She uses a Mirena IUD. Current diabetes regimen includes NovoLog insulin in her pump Omni pod insulin pump settings basal rates: midnight 0.6 units/h, 4 AM 1.0, noon 0.95, 4 PM 1.050, 10 PM 0.85 for a total of [...] a correction bolus at bed if needed She uses about 31 units of insulin per day with 69% or 21 units as basal 9.5 units of 31% as bolus.She eats about 74 g of carb a day. Average blood sugar is 273 with a standard deviation of 60. They range 144-368. Blood sugars from 5 to 10 AM average 203, 2:50 PM average 268, 3 PM to 9 PM average 309, 9 PM to 5 AM 313. Her sensor low alarm is set at 70 Sensor download shows average glucose 153 with a standard deviation of 67. 2.2% are under 54, 7% under 70, 61% in target, 32% greater than 180 and 8% greater than 250. Midnight glucose rough 120, from 4 AM to 9 AM steadily climb 2 175. They then come down by 1 PM to 120. They then climb again after lunch but 150 and then up to about 180 x 9 p.m. They then come backdown to about 120 her glucose is reasonably steady overnight and then climbs little after breakfastdropping back to about 140 in the afternoon. Then at dinner climbs to about 180 peaking at 9 PM andthen dropping to about 180 by midnight. l Her weight fluctuates minimally. She continues to [...] sugars drop so fast. Previous referral to dietitian/clinical systems educator: has seen Lacie Nichole and Pam Miranda Associated macro- and microvascular complications: None Risk factors for atherosclerotic disease: High LDL Family history of diabetes: None Patient Active Problem List Diagnosis ??? Type 1 diabetes mellitus ([facility]) ??? Smoker ??? Pure hypercholesterolemia Past Medical History: Diagnosis Date ??? Diabetes mellitus ([facility]) 2008 eye exam annually ??? Kidney [...] on phone: None Gets together: None Attends temple service: None Active member of club or [...] reviewed and are negative. Physical Examination: BP 107/65 Pulse 82 Ht 157.5 cm (62.01) Wt 58.5 kg (129 lb) BMI 23.59 kg/m?? Constitutional: Oriented to person, place, and time. Appears well-developed and well-nourished. Comfortable. No distress. Well-developed woman in no acute distress. Heart lung sounds unremarkable without carotid bruit. Neck supple without thyromegaly. Laboratory Data: Labs done 1219 at her PCPs office in [facility] creatinine 0.63, GFR greater than 600, total cholesterol 200, triglycerides 102, HDL 59, LDL 120, urine microalbumin/creatinine ratio less than 0.6, no TSH found Results for CAROLYN SOSA ( ) as of 10/25/2018 15:24 Ref. Range 12/02/2015 09:39 01/12/2017 10:06 01/12/2017 10:57 08/23/2017 08:57 10/25/2018 15:02 Hemoglobin A1C, POC Interfaced Latest Ref Range: <5.7 % 8.5 (H) 8.3 (H) 7.3 (H) Ur Alb ug/mg Crea Latest Units: ug/mg Crea 11.3 Unable to calcula... Ur Albumin mg/dl Latest Units: mg/dl 0.5 <0.2 Lab Results Component Value Date NA 141 [...] 1.03 01/12/2017 Assessment: Carolyn Sosa is a 37 y.o. female 1. Type 1 diabetes mellitus. 37-year-old female with Type 1 DM with slightly improved glucose control and overall fewer lows nowthat she is back on the Omni pod pump and DEXCOM G5 sensor. She is now working in the [place] area commuting from [facility], and has 4 children so very busy [...] recent TSH found but clinically euthyroid Plan: Basal change noon - 4 Pm 1.05 More aggressive breakfast and dinner bolus Try a temp basal of 10% more from 6 or 8 PM to 10 PM. Recommend start a stain Fasting labs in January tsh, BMP, lipids, LFT's and urine microalbumin/cr F/U in 4 months Lorraine Figueroa NP 10/25/2018 I spent a total of 25 minutes in face to face time with this patient, and 15 minutes of that time was spent in counseling and coordination of care as described in This progress note documented in this encounter Plan of Treatment Not on file documented as of this encounter Procedures Procedure Name Priority Date/Time Associated Diagnosis Comments POCT HEMOGLOBIN A1C, INTERFACED Routine 10/25/2018 15:02 EDT Type 1 diabetes mellitus without complication ([facility]) documented in this encounter Results * (ABNORMAL) POCT HEMOGLOBIN A1C, INTERFACED (03/20/2019 15:36 EDT) Hemoglobin A1C, POC Interfaced 7.4(H) <5.7 % 03/20/2019 16:05 EDT [facility] refrigerating engineer ID [id number] 03/20/2019 16:05 EDT [facility] Comment: For Hgb A1c values [...] Unknown 03/20/2019 15:36 EDT 03/20/2019 16:05 EDT Lorraine Figueroa NP POINT OF CARE TEST ORDERABL ES Final Result [facility] [address] [place] [address] * (ABNORMAL) POCT HEMOGLOBIN A1C, INTERFACED (10/25/2018 15:02 EDT) Hemoglobin A1C, POC Interfaced 7.3(H) <5.7 % 10/25/2018 15:22 EDT [facility] refrigerating engineer ID [id number] 10/25/2018 15:22 T [facility] Comment: For Hgb A1c values [...] Unknown 10/25/2018 15:02 EDT 10/25/2018 15:22 EDT Lorraine Figueroa METAL TREATER POINT OF CARE TEST ORDERABL ES Final Result [facility] [address] [place] [address] documented in this encounter Visit Diagnoses Diagnosis Type 1 diabetes mellitus without complication ([facility])- Primary Type I (juvenile type) diabetes mellitus without mention of complication, not stated as uncontrolled documented in this encounter Care Teams Business Education Professor Relationship Specialty Start Date End Date Huseyin Zazueta MD [address] [place] [id number] PCP - General 07/16/09 documented as of this encounter
--- OUTSIDE RECORDS SUMMARY | 2024-05-02 15:18 | XMS_ITS | Encounter Summary ---
Author Organization [facility] Address [address] [place] [address] Care Team Providers Care Manufacturing Project Engineer Name Role Phone Huseyin Zazueta MD Primary Care Provider Reason for Visit * Reason Onset Date Comments Medications Refill 02/17/2020 Encounter Details Date Type Department Care Team (Late st Contact Info) Description 02/17/2020 Refill [facility] Endocrinology - [facility] [address] [place] [address] Lorraine Figueroa NP [address] [facility] [address] [place] [address] Medications Refill Social History Tobacco [...] Filled Start Date End Date glucagon 1 mg emergency injection kit Inject 1 mg into the muscle as needed for Low Blood Sugar. 4 Kit 6 02/25/2020 06/18/2021 documented in this encounter Miscellaneous Notes * Telephone Encounter - Shanae Morgan RN - 02/25/2020 1040 EDTFrom: Carolyn Portillo To: Office of Lorraine Figueroa APRN Sent: 02/17/2020 9:27 EDT Subject: Medication Renewal Request Refills have been requested for the following medications: glucagon (GLUCAGON EMERGENCY KIT, HUMAN,) 1 mg emergency injection kit [Lorraine Figueroa APRN] Preferred pharmacy: [facility] [id number] documented in this encounter Plan of Treatment Not on file documented as of this encounter Visit Diagnoses Not on filedocumented in this encounter Discontinued Medications Medication Sig Discontinue Reason Start Date End Da te glucagon (GLUCAGON EMERGENCY KIT, HUMAN,) 1 mg emergency injection kit Inject 1 mg into the muscle as needed for Low Blood Sugar. Reorder 06/14/2017 02/17/2020 documented as of this encounter Care Teams Manufacturing Project Engineer Relationship Specialty Start Date End Date Huseyin Zazueta MD [address] [place] [id number] PCP - General 07/16/09 documented as of this encounter
--- OUTSIDE RECORDS SUMMARY | 2024-05-02 15:18 | XMS_ITS | Encounter Summary ---
Author Organization [facility] Address [address] [place] [address] Care Team Providers Care Cleaner Furniture Name Role Phone Huseyin Zazueta MD Primary Care Provider [phone] Reason for Visit * Reason Onset Date Comments DME 12/01/2020 Dexcom transmitt er Encounter Details Date Type Department Care Team (Late st Contact Info) Description 12/01/2020 Telephone [facility] Endocrinology - [facility] [address] [place] [address] Kaley Lopez, DIRECTOR DERMATOLOGY [address] [facility] [address] [place] [address] DME (Dexcom transmitter) Social History Tobacco Use Types Packs/Day Years [...] Telephone Encounter - Christos Peñaloza MA - 12/29/2020 1313 EDT Faxed [employer] SWO/RX CGM and Diabetic Supplies on 12/29/20 to [phone] * Telephone Encounter - Raleigh Evans - 12/01/2020 1404 EDT Patient on wait list. * Telephone Encounter - Lamine Barillas - 12/01/2020 1245 EDT Patient's transmitter is expiring December 06. Patient's insurance is refusing to cover a new transmitter until she's been seen by her new provider. Manager Labor Relations scheduled patient for soonest appt which is December 17. Is there any other way this patient can have appt before it expires or a replacement transmitter? documented in this encounter Plan of Treatment Not on file documented as of this encounter Visit Diagnoses Not on filedocumented in this encounter Care Teams Cleaner Furniture Relationship Specialty Start Date End Date Huseyin Zazueta MD [address] [place] [address] PCP - General 07/16/09 documented as of this encounter
--- OUTSIDE RECORDS SUMMARY | 2024-05-02 15:19 | XMS_ITS | Encounter Summary ---
Author Organization [facility] Address [address] [place] [address] Care Team Providers Care Sider Name Role Phone Huseyin Zazueta MD Primary Care Provider [phone] Reason for Visit * Reason Onset Date Comments DME 09/01/2017 Encounter Details Date Type Department Care Team (Late st Contact Info) Description 09/01/2017 Telephone [facility] Endocrinology - [facility] [address] [place] [address] Lorraine Figueroa NP 62 [facility] [address] [place] [address] DME Social History Tobacco Use [...] encounter Miscellaneous Notes * Telephone Encounter - AlexAury roque - 09/01/2017 1502 EDT Emailed [employer] for omni pod on 09/01/17. Sent to be scanned. documented in this encounter Plan of Treatment Not on file documented as of this encounter Visit Diagnoses Not on filedocumented in this encounter Care Teams Sider Relationship Specialty Start Date End Date Huseyin Zazueta MD [address] [place] [address] PCP - General 07/16/09 documented as of this encounter
--- OUTSIDE RECORDS SUMMARY | 2024-05-02 15:19 | XMS_ITS | Encounter Summary ---
Author Organization [facility] Address [address] [place] [address] Care Team Providers Care Turn Down Man Name Role Phone Huseyin Zazueta MD Primary Care Provider [phone] Reason for Visit * Reason Onset Date Comments Prior Auth, Medication 04/16/2016 OneTouch Ultra Test Strips Encounter Details Date Type Department Care Team (Late st Contact Info) Description 04/16/2016 Telephone [facility] - [facility] [address] [place] [address] Lorraine Figueroa NP [address] [facility] [address] [place] [address] Prior Auth, Medication (OneTouch Ultra Test Strips) Social History Tobacco Use Types Packs/Day Years Used Date Smoking Tobacco: Every Day Cigarettes Smokeless Tobacco: Never Alcohol Use Standard Drinks/Week Comments No 0 [...] shopping? Answer Date of Assessment Author No 12/02/2015 8:55 EDT documented as of this encounter Mental Status * Because of a physical, mental, or emotional condition, does this person have serious difficulty concentrating, remembering, or making decisions? Answer Entry Date Author No 12/02/2015 8:55 EDT documented in this encounter Miscellaneous Notes * Telephone Encounter - Michelle Britt - 04/16/2016 1645 EST Rcvd fax from / [employer] Program with APPROVAL for Diabetic Test Strips (any kind) Qty: 918 every 90 days Authorization valid 02/16/2016 - 04/16/2017 Called Pharmacy - script ran through with no co-pay, and said can let pt know that script will be ready in about an hour. Called and sp w/ pt to provide approval details, and let her know that script will be ready today. * Telephone Encounter - BalwinderMichelle - 04/16/2016 1546 EST Rcvd fax from pharmacy indicating PA is required for OneTouch Ultra test strips. Completed / [employer] Employee Program ([employer]) PA Request Form and e- filed with CMM to initiate this process. documented in this encounter Plan of Treatment Not on file documented as of this encounter Visit Diagnoses Not on filedocumented in this encounter Care Teams Turn Down Man Relationship Specialty Start Date End Date Huseyin Zazueta MD [address] [place] [address] PCP - General 07/16/09 documented as of this encounter
--- OUTSIDE RECORDS SUMMARY | 2024-05-02 15:19 | XMS_ITS | Encounter Summary ---
Author Organization [facility] Address [address] [place] [address] Care Team Providers Care Staking Technician Name Role Phone Huseyin Zazueta MD Primary Care Provider [phone] Reason for Visit * Reason Comments Diabetes Encounter Details Date Type Department Care Team (Latest Contact Info) Description 09/20/2017 14:00 EDT Nurse Only [facility] Endocrinology - [facility] [address] [place] [address] Celeste Vaz CDE 62 [facility] [address] [place] [address] Type 1 diabetes mellitus with hypoglycemia and without coma (HCC-CMS) (Primary Dx) Social History Tobacco Use [...] Sign Reading Time Taken Comments Blood Pressure 114/63 09/20/2017 1401 EDT Pulse 85 09/20/2017 1401 EDT Temperature - - Respiratory Rate - - Oxygen Saturation - - Inhaled Oxygen Concentration - - Weight 59.1 kg (130 lb 6.4 oz) 09/20/2017 1401 E DT Height 157.5 cm (5' 2.01) 09/20/2017 1401 EDT Body Mass Index 23.84 09/20/2017 1401 EDT documented in this encounter Functional Status [...] this encounter Patient Instructions * Patient Instructions* Celeste Vaz RN CDE - 09/20/2017 14:00 EDT Images from the original note were not included. Check blood sugars fasting,before each meal, 2 hours after each meal, bedtime, midnight and middle of the night Call cosmetology educator Daily for the first 48 hours Call clinic with any urgent issues [phone] 24 hours web content director coverage Call pump company with any technical questions or issues Set up download program for pump at home Keep pump settings accessible Keep source of rapid acting insulin available Keep current supply of basal insulin at home Keep spare pods available Avoid alcohol, snacks and strenuous activities-keep schedule as routine as possibe Follow pump calculated doses Pump Settings: Basals: time ratio 00 0.92 Carb ratios: time ratio 00 1:10 Correction Factor time ratio 00 1:30 Target time ratio 00 130-150 Active Insulin 4 Always check for ketones if > 300. If positive take shot of novolog/humalog and change infusion set promptly, recheck within 2 hours, if not coming down call the clinic promptly for assistance. KETONES and DKA What insulin pump wearers need to know What are ketones? When a person does not have enough insulin to convert glucose (sugar) into energy the body will start to use fat as the primary source of fuel. Ketones are produced as fats are converted into energy.Ketones are an ???acid-like?? substance that are not normally present. Ketones can appear even in persons without diabetes when carbohydrate intake is reduced such as in high protein diets. However,it can be very dangerous when a person with diabetes has ketones because of an insufficient amount of insulin. The production of ketones is called ketosis. Although being on a pump can greatly improve blood glucose control, one of the risks of being on a pump is DKA (Diabetic Keto-Acidosis). DKA can happen if there is an insulin deficiency for several hours. One high blood sugar reading with or without ketones is not DKA. But, it is important to checkfor ketones if the blood glucose level is unexpectedly above 250. If ketosis is present then very specific guidelines must be followed to prevent ketosis from developing into DKA. What is DKA? DKA is very dangerous condition and in fact is life threatening. The symptoms of DKA are nausea andvomiting, extreme thirst, excessive urination, abdominal pain, changes in breathing and changes in mental status. Symptoms of DKA are often confused with the flu or food poisoning. DKA is an emergency situation requiring immediate medical attention. Persons suffering from DKA must be brought to a spital immediately for treatment. The most common causes of DKA for people who wear insulin pumps are illness or a crimped infusion set which interrupts the flow of insulin. How do I check for ketones? Although ketones are produced in the bloodstream, they are eliminated through the kidneys, and therefore in the urine. The easiest products for checking urine ketones are ???dipsticks?? or ???qza-win-gnwe?? test strips. These can be purchased at any local pharmacy without a prescription. It is usually recommended to check for ketones when your blood glucose level is greater than 250 mg/dl, as well as when you are ill (refer to the Sick Day Guidelines handout). What do I do if I have ketones? It is also important to know what to do if you are ketone-positive. Follow the guidelines on the Hyperglycemia Algorithm Be sure to contact your diabetes care team. Call the clinic at [phone] day or night if ketosis is not improving. Hyperglycemia Algorithm When blood glucose is unexplainably above 250 mg/dl, always check for ketones, and follow this algorithm??? SICK DAY RULES Why worry about sick days? When you are ill, injured or more stressed than usual you can expect your blood sugars to be higherthan usual. Higher levels of stress hormones which make you more resistant to insulin. This will happen even if you are not eating or eating less than usual. It is not uncommon for your blood sugars to start rising even before you feel ill. Examples of Sick Days: ??? Illnesses such as the common cold, bronchitis/pneumonia, flu, stomach/intestinal viruses and urinary tract infections ??? Skin infections such as foot sores, blisters, bad cuts or wounds on any body part, dental infections, eye infections ??? Bone fractures, muscles tears, sprains and strains, trauma to any part of your body,frozen shoulder, joint pain/inflammation ??? Surgery ??? Major emotional stress such as of family/friends, loss of job, marital/relationship breakup, loss of home, financial difficulties. major depression, anxiety disorder How to manage sick days safely: Insulin: ??? It is very important that you do not omit your daily or long acting insulin Lantus, Levemir or NPH for any reason. If you think that you should not take the full amount(s) please call the clinic and you will be given advice on dosing. ??? Insulin pump wearers should be familiar with using temporary basal rates and adjusting as needed. Bolus doses may need to be increased for both food intake and corrections. ??? Even if you are not eating you may still need rapid or fast acting insulin : Novolog, Humalog, Apidra, Regular to correct high blood sugars. If you do not know how much to take please call the clinic and ask to speak with a nurse. ??? If you are taking premixed insulin such as Novolog 70/30, Novolin or Humulin 70/30, Humalog 75/25, Humalog 50/50 please call the clinic for dosing advice. Incretin Therapy: ??? If you are taking Byetta, Symlin or Victoza you can continue these as long as you are not having any vomiting/diarrhea . If you are not able to eat at all do not take these medications. If you have any new onset of abdominal pain even without vomiting call the clinic before continuing these medications. ??? If you are taking Januvia/Sitagliptin or Onlgyza/Saxtagliptin you can continue these as long asyou are not having vomiting/diarrhea. If you are not able to eat at all do not take these medications. If you have any new onset of abdominal pain even without vomiting call the clinic before continuing these medications. Diabetes pills: ??? if you are unable to tolerate fluids and/or have vomiting/diarrhea it is recommended that you do not take Metformin/Glucophage or any combination pills that contain it. You can resume the Metformin/Glucophage once the illness has resolved and you are back on your usual diet. ??? If you are taking Glucotrol, Glipizide, Glimeprimide you can continue them as long as you are able to eat some carbs such as toast, crackers, chicken noodle soup. If your blood sugars however arelow do not take the pill(s). Food and Fluids: ??? If you are able to eat regularly make sure to increase fluids. Drink 6-8 oz of sugar-free and caffeine -free liquids every 1-2 hours such as water, decaf tea, diet soda, diet jello, broth ??? If you are not able to eat regularly you should try to have some easily digested carbohydrates every 1-2 hours. The following items all contain about 15 grams of carbs: ?? cup: applesauce, juice, regular jello, regular pudding, hot or cold cereal, eggnog, ice cream/sherbet [place], 1 piece, crackers to equal 15 gms, cookies to equal 15 gms 1 cup: chicken noodle/rice soup ??? If you are getting low blood sugars try 1 tbs of honey, maple syrup, jam Blood Sugar Monitoring: ??? Persons with Type 2 Diabetes should check blood sugar 4 times daily, including bedtime ??? Persons with Type 1 Diabetes should check blood sugars every 2 hours and need to check urine ketones every 4 hours especially when blood sugars are > 250 When to call the Diabetes Clinic or your Primary Care Provider: ??? Vomiting or diarrhea that lasts for more than 4 hours ??? Moderate or large ketones ? ? Blood sugars that are > 250 2 or more times during the day ??? Low blood sugars ??? You are not sure about your insulin doses or diabetes medicines There is 24 hour coverage for emergencies. You will speak with the on-call physician. Our phone number is [phone] If you or a family member are having trouble breathing or have changes in mental status call 911 for emergency medical attention Questions ?: Call the Endocrinology and Diabetes Clinic at [phone] with any questions or concerns. Off -Pump guidelines One of the most appealing aspects of pump therapy is that it is not permanent. Of course, it does not make sense to wear the pump for only a few days a week. But, it is nice to know that if you want or need to take your pump off, you can, and you can do it safely. It is also useful to know how to return to injections (including using the proper dose) in case of an emergency. The following guidelines can be used during these times. To have your pump off for 24+ hours: ??? Calculate your total daily basal dose. ??? You will need to replace the basal dose with Lantus insulin injections ??? You can choose to take the Lantus in either in one single daily dose or 2 divided doses. ??? If you are planning to restart the pump before 48 hours we do recommend that you take divided doses ??? You should not restart the pump if it is less than 24 hours after you took a single daily dose of Lantus or if it is less than 12 hours after you took a divided dose of Lantus ??? When you restart the pump you will need to monitor your blood sugars closely since you may still have some active Lantus present ??? You may need to run a temp basal decrease for the first day after restarting your pump You will continue to count carbohydrates and take your rapid acting insulin (Humalog, Novolog or Apidra ) at your current insulin: carb ratio with meals. You will also continue to use your correction factor. To have your pump off for shorter amounts of time: ??? For less than an hour: no adjustment necessary ??? For a full hour: make up as a bolus what you are missing in basal insulin for that hour ??? For two (2) hours: before you disconnect, bolus what you are missing in basal for the first 60 minutes. When you reconnect, bolus what you missed in basal for the second 60 minutes ??? For three (3) hours: as above, using 90 minutes ??? It may be unsafe to use this same equation for time periods longer than three hours. NOTE: There may be times when you disconnect that you do not need to make up for missed insulin. For example, if you are disconnecting for sports. Also, these are general guidelines only. It is important that you routinely check blood glucose levels during these times so that you can prevent both hyper- and hypoglycemia. Be sure to check with your health care team for the specific guidelines theywould like you to follow. As always, call the clinic at [phone] with any questions TEMPORARY BASAL PROTOCOL TO USE FOR FIRST DAY OF PUMP START HIGHS For any unexpected highs ( > 300) , follow hyperglycemia algorithm. If ketones are negative: If you are over 200 twice in a row, correct and enter a temp basal of 10% additional basal for 5 hours If you are over 300 once, correct and enter a temp basal of 15% additional basal for 5 hours If you are over 350 once, correct and enter a temp basal of 20% additional basal for 5 hours Recheck blood sugar in 2 hours after correction. If not improved in 2 hours, cancel temp basal and reenter for an another additional 5% for 5 hours. If sugar drops below 110 cancel temp basal. It is very important to follow the hyperglycemia algorithm. If your ketones are positive there is chiquita good chance that the pump delivery of insulin is being interrupted. You will need to take an injection and change your pump tubing and site. LOWS If you are < 100, correct with sugar, and enter temp basal of 15% reduction for 4 hours If you are < 90, correct with sugar, and enter temp basal of 20% reduction for 4 hours If you are < 70, correct with sugar, and enter temp basal of 30% reduction for 4 hours If you are < 60, correct with sugar, and enter temp basal of 50 % reduction for 4 hours If you are < 50 or less, correct with sugar and enter temp basal of 100% reduction (OFF) for 1 hour and then enter a temp basal reduction of 50% for the next hour. Recheck your fingerstick blood sugar in 15 mins to see that it is coming up. If you are below 100 after the first 15 mins, repeat the sugar and recheck the fingerstick blood sugar. Check fingerstick blood sugar hourly for next 3 hours. If fingerstick blood sugar climbs over 200 cancel temp basal reduction. You will need to check blood sugars yobani every 3 hours for this first week for your safety and so wecan make adjustments. You will call the clinic [phone] with any problems. You will need to notify the physician of your current pump settings and your current blood sugars. TRAVEL PLAN: Do not expose pump and/or sensor to Xrays - MUST NOT go through scanners Do not allow pumps/pods,receivers to go through Xray Take extra rapid acting insulin with you Take basal insulin with you Take extra pump supplies with you Carry all diabetes items with you - do not pack in checked luggage [email or web address] documented in this encounter Progress Notes * Celeste Vaz RN CDE - 09/20/2017 1400 EDT Patient arrives with new omnipod insulin pump. She has a pattern of lows at night, but she has started her dexcom and is very happy with it. States that it does alert her to lows earlier. She has used a medtronic pump in the past, but had a hard time with infusion site infections, irritation and the sites getting pulled out. Infusion set: pod Insulin: novolog Meter: dexcom Basals: time ratio 00 0.90 Carb ratios: time ratio 00 10 Correction Factor time ratio 00 50 Target time ratio 00 200 Active Insulin 4 We have reviewed the following: Pump overview -pump menu -general navigation -basal vs bolus -confimation/save Delivering Bolus -meal bolus -snack bolus -insulin:carb -sensitivity factor -cancelling bolus -quick bolus Basal settings - stop and resume insulin Temp basal settings Alerts -Reminders Set and sites -site selection -site rotation -signs/symptoms of infection -fill pod -insert pod -prime Review pump management: -Targets -hypoglycemia/ glucagon -hyperglycemia/ketones - pattern management -emergency and back-up supplies -Check BG frequency: fbs, ac, 2 hrs pc, hs, midnight, 3 am and s/s hypoglycemia Follow up Daily contact with CDE Call with any questions or problems order caller coverage after hours Time spent with patient: 60 minutes documented in this encounter Plan of Treatment Not on file documented as of this encounter Visit Diagnoses Diagnosis Type 1 diabetes mellitus with hypoglycemia and without coma ([facility]-CMS)- Primary Type I (juvenile type) diabetes mellitus with other specified manifestations, not stated as uncontrolled documented in this encounter Care Teams Staking Technician Relationship Specialty Start Date End Date Huseyin Zazueta MD [address] [place] [id number] PCP - General 07/16/09 documented as of this encounter
--- OUTSIDE RECORDS SUMMARY | 2024-05-02 15:19 | XMS_ITS | Encounter Summary ---
Author Organization [facility] Address [address] [place] [address] Care Team Providers Care Drill Punch Operator Name Role Phone Huseyin Zazueta MD Primary Care Provider [phone] Reason for Visit * Reason Comments Diabetes Encounter Details Date Type Department Care Team (Latest Contact Info) Description 04/04/2014 14:20 EDT Office Visit [facility] Endocrinology - [facility] [address] [place] [address] Lorraine Figueroa NP [address] [facility] [address] [place] [address] Type 1 diabetes mellitus (CMS-HCC) (HCC-CMS) (Primary Dx) Social History Tobacco Use [...] Sign Reading Time Taken Comments Blood Pressure 115/67 04/04/2014 1414 EDT Pulse 93 04/04/2014 1414 EDT Temperature - - Respiratory Rate - - Oxygen Saturation - - Inhaled Oxygen Concentration - - Weight 58.4 kg (128 lb 11.2 oz) 04/04/2014 1414 EDT Height 157.5 cm (5' 2.01) 04/04/2014 1414 EDT Body Mass Index 23.53 04/04/2014 1414 EDT documented in this encounter Discharge Diagnoses Diagnosis 250.01 DIABETES UNCOMPL FOREST-TYPE I[ICD-9-CM] documented in this encounter Patient Instructions * Patient Instructions* Lorraine Figueroa ANP - 04/04/2014 14:56 EDT Increase AM Lantus 5 units to 25 units Change CHO:insulin ratio to 8:1 Sensitivity 30:1 for sugars >140 At bedtime use 60:1 Follow-up in 3 months Labs ordered tsh, BMP, lipids and urine microalbumin Call PCP and see if wants to add anything documented in this encounter Progress Notes * Lorraine Figueroa ANP - 04/04/2014 1441 EDT Endocrinology Follow-up Note Date of Consultation: 04/04/2014 HPI: Carolyn Sosa is a 33 y.o. female seen in follow-up in the adult endocrine clinic 6 months for management of Type 1 DM during . Hayley has had diabetes since 07/2009. This is my first with her or any provider since delivery. During , she was admitted at gestational age 25 weeks with DKA and received steroids for lung maturity. She had significant spikes in her glucoses around that time which did stabilize. She was seen through her by our endocrine team in the high risk MFM clinic. She was started on an insulin pump & sensor 08/30 by our educator. At 36 weeks she had an emergency because of concerns the fetus had a Vein of Florentin ( found to be negative,. And a dilated 3rd ventricle. Her daughter 96 ojgwge39 oz.), was transferred to [facility] for 8 days and then [facility] [place] for [facility] week. [facility] and [facility]. She has 3 other children at home. She first had a Depo shot and then a Merena ring placed. She currently is off the pump saying the catheters gave her welts at the insertion sites. She also had some site infections despite trying different catheters. She also had problems with it pulling out of her thighs where she preferred to wear it. Her current diabetes regimen includes - Lantus insulin 20 units AM & 5 at night. - NovoLog insulin with an insulin to carb ratio of 1:10 usually 0 units AM (has coffee only), and 5-10 lunch & dinner - Correction factor - 1:30 She says her weight fluctutates a lot but denies any eating disorders. She says her wt was about 115 pre-. She snacks on peanuts a lot. She continues to smoke. She started at age 14 and has tried, to quit cold turkey, and Chantrix. Gracia talked with [facility] [facility] and I advised her to speak with her PCP at her upcoming appt. She continues to work with her ex- on legal ramifications of having her move her children further away from him. She was commuting a long way to work for [employer]? current work status. She is checking glucoses 4-5 times daily. During the PM 32-470 with 3 lows Fasting- 88-438 average 194 Pre lunch- most 180-250 Post lunch- most 200-300 average 232 Pre supper - 141-570 average 90--518 average 308 C/O occasional lows (4 In past month 49-54) - all at night . She wakes up and eats a snack. 1. Obstetrics History: : 6 Para: 3 (1 spont ab, 1 elective ab) # Outcome Date GA Weight Sex Delivery 1 Live 1998 40 weeks 6 lb 10 oz female 2 Elect ab 1999 3 Live 2002 40 weeks 6 lb 7 oz female 4 spont ab 2003 5 Live 2004 40 weeks 6 lb 6 oz male 6 live birtht 2013 36 weeks Female 2. Diabetes History: When diagnosed: 2009 always on insulin: Hypoglycemia/availability of glucagon emergency kit at home: has glucagon and boyfriend and oldest daughter know how to use it, has never had to use it Lab Results Component Value Date HGBA1C 7.2 07/09/2013 HGBA1C 7.0 04/27/2013 HGBA1C 7.5 03/16/2013 HGBA1C 8.4 01/26/2013 HGBA1C 8.6 11/22/2012 Physical activity: Fairly active, walks likes to outdoors. does recreational exercise with children and boyfriend Previous referral to dietitian/clinical educator: Sees Lacie Nichole and Pam Miranda Associated macro- and microvascular complications: None Risk factors for atherosclerotic disease: None other than T1DM Family history of diabetes: None Patient Active Problem List Diagnosis ??? Type 1 diabetes mellitus ??? Smoker ??? Pure hypercholesterolemia Past Medical History Diagnosis Date ??? Kidney stones ??? hematuria & adbominal pain ??? Diabetes mellitus 2008 eye exam annually Past Surgical History Procedure Laterality Date ??? [place] tooth extraction Current Outpatient Prescriptions Medication Sig Dispense Refill ??? acetaminophen (TYLENOL) 325 mg tablet Take 1-2 Tabs by mouth every 4 hours. ??? blood glucose (ONE TOUCH ULTRA TEST) test strips 8 Strips daily ICD-9: 648.03. 800 Each 3 ??? calcium carbonate (TUMS) 200 mg calcium (500 mg) tablet, chewable Take 1-2 Tabs by mouth every 2 hours as needed for Other (heartburn). ??? docusate sodium (COLACE) 100 mg capsule Take 1 Cap by mouth 2 times daily as needed for Constipation. ??? glucagon (GLUCAGON EMERGENCY) 1 mg emergency injection kit Use as directed. 4 Kit 6 ??? ibuprofen (MOTRIN) 400 mg tablet Take 1 Tab by mouth every 4 hours as needed for Pain. ??? insulin aspart (NOVOLOG FLEXPEN) 100 unit/mL injectable pen Inject into the skin 3 times daily with meals 1/10 carb ration . ??? insulin aspart (NOVOLOG) 100 unit/mL injection Up to 80 units daily via insulin pump. 3 Vial 11 ??? insulin glargine (LANTUS SOLOSTAR) 100 unit/mL (3 mL) injection pen Inject into the skin 20 units in the am, 5 unit pm . ??? medroxyPROGESTERone (DEPO-PROVERA) 150 mg/mL injection Inject 1 mL into the muscle every 12 weeks. 1 mL 4 ??? VIT/IRON FUMARATE/FA ( ORAL) Take by mouth. Current Facility-Administered Medications Medication Dose Route Frequency Provider Last Rate Last Dose ??? medroxyPROGESTERone (DEPO-PROVERA) injection 150 mg 150 mg intramuscular Q3 MONTHS Magdalena Arzate MD 150 mg at 11/01/13 1459 Allergies: Levemir History Social History ??? Marital Status: Spouse Name: N/A Number of Children: N/A ??? Years of Education: N/A Social History Main Topics ??? Smoking status: Current Every Day Smoker -- 0.25 packs/day ??? Smokeless tobacco: Never Used ??? Alcohol Use: No Comment: occasional ??? Drug Use: No ??? Sexual Activity: Yes Partners: Male Control/ Protection: Injection Other Topics Concern ??? None Social History Narrative ??? None Family History Problem Relation Age of Onset ??? High Blood Pressure Mother ??? Diabetes Sister Review of Systems: Pertinent items are noted in Subjective/HPI. Otherwise negative on a 12 point review of systems. Constitutional: Negative for fever, weight loss, malaise/fatigue and diaphoresis. HENT: Negative for neck pain. Eyes: Negative for double vision. Has acute angle galucoma . Last seen 12/2013 Respiratory: Negative for shortness of breath and wheezing. Cardiovascular: Negative for chest pain, palpitations and leg swelling. Gastrointestinal: Negative for nausea, vomiting, abdominal pain, usually either has diarrhea and constipation. Skin: Negative for rash. Neurological: Negative for tremors, focal weakness but frequent JAMISON, All other systems reviewed and are negative. Physical Examination: BP 115/67 Pulse 93 Ht 157.5 cm (62.01) Wt 58.378 kg (128 lb 11.2 oz) BMI 23.53 kg/m2 Constitutional: Oriented to person, place, and time. Appears well-developed and well-nourished. Comfortable. No distress. HENT: Head: Normocephalic and atraumatic. Mouth/Throat: Oropharynx is clear and moist. Eyes: Conjunctivae and EOM are normal. Pupils are equal, round, and reactive to light. No scleral icterus. No lid lag or exophthalmos. No periorbital edema. Neck: Normal range of motion. Neck supple. No thyromegaly present. Cardiovascular: Normal rate, regular rhythm, normal heart sounds and intact distal pulses. Exam reveals no friction rub. No murmur heard. Pulmonary/Chest: Effort normal and breath sounds normal. No respiratory distress. No wheezes or rales. Abdominal: Soft. Bowel sounds are normal. No distension. There is no tenderness. Musculoskeletal: Normal range of motion. No edema. Bilateral feet exam: monofilament and vibratory sense intact. No ulcers or calluses. Lymphadenopathy: No cervical adenopathy. Neurological: alert and oriented to person, place, and time. DTRs 2+ bilateral UE/LE. Skin: Skin is warm. No rash noted. No erythema. Psychiatric: Normal mood and affect. Laboratory Data: Results for CAROLYN SOSA ( ) as of 06/01/2014 17:03 Ref. Range 11/22/2012 11:55 01/26/2013 15:59 03/16/2013 14:28 04/27/2013 10:00 07/09/2013 13:44 Hemoglobin A1C No range found 8.6 8.4 7.5 7.0 7.2 Today is 8.1%. Lab Results Component Value Date NA 134* 06/20/2013 K 3.6 06/20/2013 CL 104 06/20/2013 CO2 20* 06/20/2013 BUN 4* 06/20/2013 CREATININE 0.38* 06/20/2013 SERGLU 215* 11/22/2012 CALCIUM 9.0 06/20/2013 CALCCA 10.0 06/20/2013 Lab Results Component Value Date CHOL 198 11/22/2012 TRIG 66 11/22/2012 HDL 59 11/22/2012 LDLBASE 126 11/22/2012 CHOLHDL 3.4 11/22/2012 Lab Results Component Value Date WBC 12.10 09/07/2013 Lab Results Component Value Date TP 7.1 11/22/2012 LABALBU 4.1 11/22/2012 TBIL <0.5 11/22/2012 ALT 22 03/02/2013 AST 15 03/02/2013 ALKPHOS 56 11/22/2012 Lab Results Component Value Date TSH 0.96 02/20/2010 TSH 0.57 07/17/2009 Assessment: Carolyn Sosa is a 33 y.o. female 1. Type 1 diabetes mellitus. Hayley is a 33-year-old female with Type 1 DM s/p delivery last September of her 4th child per emergencyC- section because of distress. She had started the insulin pump and sensor just prior to delivery which helped stabilize her diabetes. However was stopped due to rashes and infections. She hashad wide fluctuations in her control since, terence at bedtime. She also has occasional lows during thePM. She denies hypoglycemia unawareness. She spikes after meals and is convinced that giving the meal time injections 15- 30 minutes before the meals help. No signs of micro or macrovascular disease. BP stable no proteinuria No KENDRICK and ARB not indicated - Deferred to PCP Due for lipid panel but elevated LDL- not on a stain -deferred to PCP Plan: Increase AM Lantus 5 units to 25 units Change CHO:insulin ratio to 8:1 Sensitivity 30:1 for sugars >140 At bedtime use 60:1 Follow-up in 3 months Labs ordered tsh, BMP, lipids and urine microalbumin Call PCP and see if wants to add anything BALDO Lal 04/04/2014 I spent a total of 25 minutes in face to face time with this patient, and 15 minutes of that time was spent in counseling and coordination of care as described in This progress note * Freda De La O - 04/04/2014 1422 EDT Fingerstick blood sample obtained for POCT Hemoglobin A1C performed for this DOS at the order of BALDO Lal documented in this encounter Plan of Treatment Not on file documented as of this encounter Procedures Procedure Name Priority Date/Time Associated Diagnosis Comments POCT HEMOGLOBIN A1C Routine 04/04/2014 1 5:33 EDT Type 1 diabetes mellitus (CMS-HCC) ([facility]) documented in this encounter Results * (ABNORMAL) POCT HEMOGLOBIN A1C (04/04/2014 15:33 EDT) Hemoglobin A1c, POC 8.1(A) <=5.7 POINT OF CARE Blood specimen (specimen) 04/04/2014 15:33 EDT Lorraine Figueroa MEAT GRADING MACHINE OPERATOR POINT OF CARE TEST ORDERABL ES Final Result POINT OF CARE documented in this encounter Visit Diagnoses Diagnosis Type 1 diabetes mellitus (HCC-CMS)- Primary Type I (juvenile type) diabetes mellitus without mention of complication, not stated as uncontrolled documented in this encounter Historical Medications * This list may reflect changes made after this encounter. insulin glargine (LANTUS SOLOSTAR) 100 unit/mL (3 mL) injection penIndications:Ty pe 1 diabetes mellitus (HCC-CMS) Inject into the skin 20 units in the am, 5 unit pm . 05/16/2014 insulin aspart (NOVOLOG FLEXPEN) 100 unit/mL injectable penIndications:Ty pe 1 diabetes mellitus (HCC-CMS) Inject into the skin 3 times daily with meals 1/10 carb ration . 05/16/2014 added in this encounter Care Teams Drill Punch Operator Relationship Specialty Start Date End Date Huseyin Zazueta MD [address] [place] [id number] PCP - General 07/16/09 documented as of this encounter
--- OUTSIDE RECORDS SUMMARY | 2024-05-02 15:19 | XMS_ITS | Encounter Summary ---
Author Organization [facility] Address [address] [place] [address] Care Team Providers Care Road Machine Runner Name Role Phone Huseyin Zazueta MD Primary Care Provider [phone] Reason for Visit * Reason Comments Diabetes Encounter Details Date Type Department Care Team (Latest Contact Info) Description 12/02/2015 8:40 EDT Office Visit [facility] Endocrinology - [facility] [address] [place] [address] Lorraine Figueroa NP [address] [facility] [address] [place] [address] Type 1 diabetes mellitus without complication ([facility]) (Primary Dx) Social History Tobacco Use Types [...] Sign Reading Time Taken Comments Blood Pressure 110/55 12/02/2015 0850 EDT Pulse 84 12/02/2015 0850 EDT Temperature - - Respiratory Rate - - Oxygen Saturation - - Inhaled Oxygen Concentration - - Weight 59 kg (130 lb) 12/02/2015 0850 EDT Height 157.5 cm (5' 2.01) 12/02/2015 0850 EDT Body Mass Index 23.77 12/02/2015 0850 EDT documented in this encounter Functional Status [...] 12/02/2015 8:55 EDT documented in this encounter Patient Instructions * Patient Instructions* Lorraine Figueroa ANP - 12/02/2015 9:[address] referral at [facility] take 5 days of food records. No changes Please E-mail BS Avoid trans and hydrogenated fats Follow-up in 4 months Rotate injections more Please bring all your meters to the visit. Labs today documented in this encounter Progress Notes * Lorraine Figueroa ANP - 12/02/2015 0906 EDT Endocrinology Follow-up Note 12/02/2015 HPI: Carolyn Sosa is a 35 y.o. female seen in follow-up in the adult endocrine clinic for her type 1 diabetes. She was last seen in clinic 12/02/2104. Hemoglobin A1c 04/28/2015 was 9.2% and is 9.% today. Results for CAROLYN SOSA ( ) as of 12/02/2015 14:59 Ref. Range 09/04/2013 09:16 09/21/2013 00:00 04/04/2014 15:33 11/07/2014 16:02 12/02/2015 09:39 FRUCTOSAMINE Unknown Rpt Glucose-1hr Gest Scn Unknown error Hemoglobin A1c, POC Latest Ref Range: 5.7 % 8.1 (A) 9.7 (A) Ur Alb ug/mg Crea Latest Units: ug/mg Crea 11.3 Ur Albumin mg/dl Latest Units: mg/dl 0.5 PMH: ?1. Obstetrics History: : 6 Para: [...] our endocrine team in the high risk [facility] clinic. She was started on an insulin pump & sensor 08/30 by our educator. At 36 weeks she had an emergency ., because of concerns the fetus had congenital defects. She has 4 children athome. She uses a Mirena IUD. Current diabetes regimen includes - Lantus insulin 25 units AM - NovoLog insulin with an insulin to carb ratio of 1:10 usually 6 units AM (has coffee only), and 7-12 lunch & dinner - Correction factor - 1:30 questimates If >200 She reports having leakage when she gives shots in her abdomen. Despite leaving her needle in 10 seconds. Suggested trying 15 seconds or Z tracking. She is off the pump saying the catheters gave her welts at the insertion sites, and dislodged easily. She also had some site infections despite trying different catheters. She also had problems with it pulling out of her thighs where she preferred to wear it. She has noticed leakage when giving injections even leaving in her needles 10 second. She says her weight fluctutates a lot but denies any eating disorders. Wt stable past year. . She continues to smoke. She started at age 14 and has tried, to quit cold turkey, and Chantrix. She plansto quit but down not have a date. Her teenage children are pressuring her to, has talked with [facility] in the past and advised to call. She reports is checking glucoses 4-5 times daily. Has 3 meters but only 1 today. Past 2 weeks Blood sugars for past 2 weeks, mostly 203 100s occasional 450 and 70. There is a gap in her blood glucose records from August 11 to November 22 but says has other meters.. Denies recent lows She has a glucagon kit at home and her children and boyfriend how to use it. She carries skittles at all times. No undue burden of hypoglycemia recently Physical activity: Fairly active, walks likes to outdoors. does recreational exercise with children and boyfriend Previous referral to dietitian/certified breastfeeding educator: has seen Lacie Nichole and Pam [...] Past Surgical History Procedure Laterality Date ??? [place] tooth extraction Allergies: Levemir History Social History ??? Marital Status: Spouse Name: N/A ??? Number of Children: N/A ??? Years of Education: N/A Social History Main Topics ??? Smoking status: Current Every Day Smoker -- 0.25 packs/day ??? Smokeless tobacco: Never Used ??? Alcohol Use: No Comment: occasional ??? Drug Use: No ??? Sexual Activity: Partners: Male Control/ Protection: Injection Other Topics Concern ??? None Social History Narrative Family History Problem Relation Age of Onset [...] All other systems reviewed and are negative. Eye exam is up to date Being monitored for acute angle glaucoma. Physical Examination: BP 110/55 mmHg Pulse 84 Ht 157.5 cm (62.01) Wt 58.968 kg (130 lb) BMI 23.77 kg/m2 Constitutional: Oriented to person, place, and time. Appears well-developed and well-nourished. Comfortable. No distress. Well-developed woman in no acute distress. Heart lung sounds unremarkable without carotid bruit. Neck supple without thyromegaly. Soft bowel sounds. No distention. Slight lipohypertrophy. Laboratory Data: no recent labs. According to patient See EMR done at [facility]. April 2015 LDL 146, triglycerides 217, total cholesterol 217, HDL 53, creatinine 0.57 GFR >60. Today is 9.7% compared to 8.1% last March. . Lab Results Component Value Date NA 134* [...] 03/02/2013 AST 15 03/02/2013 ALKPHOS 56 11/22/2012 Is is as there is Lab Results Component Value Date TSH 0.96 02/20/2010 TSH 0.57 07/17/2009 Assessment: Carolyn Sosa is a 35 y.o. female 1. Type 1 diabetes mellitus. 35-year-old female with Type 1 DM poor control. Glycemic control slipped . I suspect stress of working and having 4 children. Insulin pump was stopped due to rashes and infections as well She has had wide fluctuations in her control since, terence at bedtime. She also has occasional lows during the PM. She denies hypoglycemia unawareness. Hard to evaluate with limited BS. Requesting to meetwith an RD. No signs of micro or macrovascular disease. BP stable no recent urine microalbumin found but no past proteinuria No KENDRICK and ARB not indicated -Deferred to PCP Elevated LDL- not on a stain -deferred to PCP Plan: RD referral at [facility] take 5 days of food records. No changes Please E-mail BS Avoid trans and hydrogenated fats Follow-up in 4 months Rotate injections more Please bring all your meters to the visit. Labs today BALDO Lal 12/02/2015 I spent a total of 25 minutes in face to face time with this patient, and 15 minutes of that time was spent in counseling and coordination of care as described in This progress note * Mally Brasher - 12/02/2015 0850 EDT Fingerstick blood sample obtained for POCT Hemoglobin A1C performed for this DOS at the order of BALDO Lal documented in this encounter Plan of Treatment Not on file documented as of this encounter Procedures Procedure Name Priority Date/Time Associated Diagnosis Comments POCT HEMOGLOBIN A1C Routine 12/02/2015 8 :53 EDT Type 1 diabetes mellitus without complication ([facility]) documented in this encounter Results * TSH (12/02/2015 9:39 EDT) TSH 0.71 0.55 - 4.78 uIU/ml 12/02/2015 12[facility] Blood specimen (specimen) BLOOD SPECIMEN / Unknown 12/02/2015 9:39 EDT 12/02/2015 10:44 EDT Lorraine Figueroa HEAD OF STORE OPERATIONS CHEMISTRY & BLOOD GAS ORDER RASHI Final Result Performing Organization Address City/[facility]/ZIP Co de Phone Number [facility] [address] [place] [address] * (ABNORMAL) HEPATIC FUNCTION PANEL (ALB,ALK PHOS,ALT,AST,DBIL,TOT CALVIN,TOT PROT) (12/02/2015 9:39 EDT) Albumin 3.4 3.4 - 4.9 g/dl 12/02/2015 11:27 [facility] Total Protein 6.0(L) 6.3 - 8.2 g/dl 12/02/2015 11:27 [facility] Total Alkaline Phosphatase 77 38 - 126 U/L 12/02/2015 11:27 [facility] ALT 21 <53 U/L 12/02/2015 11:27 [facility] AST 14(L) 15 - 46 U/L 12/02/2015 11:27 [facility] Unconjugated Bilirubin 0.0 0.0 - 1.1 mg/dl 12/02/2015 11:27 [facility] Conjugated Bilirubin 0.0 0.0 - 0.3 mg/dl 12/02/2015 11:27 [facility] Bilirubin, Total <0.5 <1.4 mg/dl 12/02/19 16 11:27 [facility] Blood specimen (specimen) BLOOD SPECIMEN / Unknown 12/02/2015 9:39 EDT 12/02/2015 10:44 EDT Lorraine Figueroa HEAD OF STORE OPERATIONS CHEMISTRY & BLOOD GAS ORDER RASHI Final Result Performing Organization Address City/[facility]/ZIP Co de Phone Number [facility] [address] [place] [address] * LIPID PROFILE (INCLUDES CHOLESTEROL, TRIGLYCERIDES, HDL, LDL) (12/02/2015 9:39 EDT) Cholesterol 187 mg/dl 12/02/2015 11:27 [facility] Comment: Desirable:<200 Borderline High:200-239 High:>dz=661 Triglycerides 170 mg/dl 12/02/2015 11:27 [facility] Comment: Normal:<150 Borderline High:150-199 High:200-499 Very High:>ov=533 HDL 41 mg/dl 12/02/2015 11:27 [facility] Comment: Low:<40 Normal:40-60 Desirable: >60 LDL, Calculated 112 mg/dl 6 11:27 [facility] Comment: Optimal:<100 Near Optimal:100-129 Borderline High:130-159 High:160-189 Very High:>zf=657 Chol/HDL Ratio 4.6 12/02/2015 11:27 [facility] Fasting? Unknown 12/02/2015 9:39 [facility] Non HDL Cholesterol 146 mg/dl 12/02/2015 11:27 [facility] Comment: Desirable:<130 Borderline:130-159 High: 160-189 Very High: >af=060 Blood specimen (specimen) BLOOD SPECIMEN / Unknown 12/02/2015 9:39 EDT 12/02/2015 10:44 EDT us Lorraine Figueroa HEAD OF STORE OPERATIONS CHEMISTRY & BLOOD GAS ORDER RASHI Final Result [facility] [address] [place] [address] * (ABNORMAL) BASIC METABOLIC PANEL (12/02/2015 9:39 EDT) Sodium 135(L) 136 - 145 mEq/L 12/02/2015 11:27 [facility] Potassium 4.3 3.5 - 5.0 mEq/L 12/02/2015 11:27 [facility] Chloride 101 96 - 110 mEq/L 12/02/2015 11:27 [facility] CO2 23(L) 24 - 32 mEq/L 12/02/2015 11:27 [facility] BUN 8(L) 10 - 26 mg/dl 12/02/2015 11:27 [facility] Creatinine 0.61 0.52 - 1.04 mg/dl 12/02/2015 11:27 [facility] GFR, Calculated 118 >60 ml/min/1.7 3m2 12/02/2015 11:27 [facility] Comment: eGFR calculated using CKD-EPI equation for non Americans. Multiply eGFR by 1.16 for Americans. Calcium 9.3 8.5 - 10.5 mg/dl 12/02/2015 11:27 [facility] Calculated Calcium 10.3 8.5 - 10.5 mg/dl 12/02/2015 11:27 [facility] Glucose, Serum 242(H) 70 - 100 mg/dl 12/02/2015 11:27 [facility] Fasting? Unknown 12/02/2015 9:39 [facility] Blood specimen (specimen) BLOOD SPECIMEN / Unknown 12/02/2015 9:39 EDT 12/02/2015 10:44 EDT us Lorraine Figueroa NP CHEMISTRY & BLOOD GAS ORDER RASHI Final Result [facility] [address] [place] [address] * ALBUMIN, URINE (12/02/2015 9:39 EDT) Creatinine, Urn [place] 44.4 mg/dl 12/02/2015 12:08 [facility] Ur Albumin mg/dl 0.5 mg/dl 12/02/2015 14:49 [facility] Ur Alb ug/mg Crea 11.3 ug/mg Crea 12/02/2015 14:49 [facility] Comment: Normal: <30 ug/mg creat High albuminuria: 30-300 ug/mg creat Very high albuminuria: >300 ug/mg creat Urine specimen (specimen) URINE / Unknown 12/02/2015 9:39 EDT 12/02/2015 10:41 EDT us Lorraine Figueroa NP CHEMISTRY & BLOOD GAS ORDER RASHI Final Result [facility] [address] [place] [address] * (ABNORMAL) POCT HEMOGLOBIN A1C (12/02/2015 8:53 EDT) Hemoglobin A1c, POC 9.0(A) <=5.7 % POINT OF CARE 12/02/2015 8:53 EDT Lorraine Figueroa HEAD OF STORE OPERATIONS POINT OF CARE TEST ORDERABL ES Final Result Performing Organization Address [facility] Co de Phone Number POINT OF CARE documented in this encounter Visit Diagnoses Diagnosis Type 1 diabetes mellitus without complication ([facility])- Primary Type I (juvenile type) diabetes mellitus without mention of complication, not stated as uncontrolled documented in this encounter Discontinued Medications Medication Sig Discontinue Reason Start Date End Da te VIT/IRON FUMARATE/FA ( ORAL) Take by mouth. Therapy completed 12/02/2015 medroxyPROGESTERone (DEPO-PROVERA) 150 mg/mL injection Inject 1 mL into the muscle every 12 weeks. Alternate therapy 11/01/2013 12/02/2015 calcium carbonate (TUMS) 200 mg calcium (500 mg) tablet, chewable Take 1-2 Tabs by mouth every 2 hours as needed for Other (heartburn). Patient Stopped Taking 09/07/2013 12/02/2015 docusate sodium (COLACE) 100 mg capsule Take 1 Cap by mouth 2 times daily as needed for Constipation. Therapy completed 09/07/2013 12/02/2015 documented as of this encounter Care Teams Road Machine Runner Relationship Specialty Start Date End Date Huseyin Zazueta MD [address] [place] [address] PCP - General 07/16/09 documented as of this encounter
--- OUTSIDE RECORDS SUMMARY | 2024-05-02 15:19 | XMS_ITS | Encounter Summary ---
Author Organization [facility] Address [address] [place] [address] Care Team Providers Care Lithostripper Name Role Phone Huseyin Zazueta MD Primary Care Provider [phone] Reason for Visit * Reason Onset Date Comments Medications Refill 06/14/2017 Encounter Details Date Type Department Care Team (Late st Contact Info) Description 06/14/2017 Refill [facility] Endocrinology - [facility] [address] [place] [address] Lorraine Figueroa NP [address] [facility] [address] [place] [address] Medications Refill Social History Tobacco [...] shopping? Answer Date of Assessment Author No 01/12/2017 10:08 EDT documented as of this encounter Mental Status * Because of a physical, mental, or emotional condition, does this person have serious difficulty concentrating, remembering, or making decisions? Answer Entry Date Author No 01/12/2017 10:08 EDT documented in this encounter Ordered Prescriptions Prescription Sig Dispense Quantity Refills Last Filled Start Date End Date insulin pen needles 31G x 5/16 (BD INSULIN PEN NEEDLE UF SHORT) Use 5 pen needles as directed daily. 500 Each 3 06/14/2017 blood glucose (ONETOUCH VERIO) test stripsIndications: Type 1 diabetes mellitus without complication ([facility]) 4-6 units daily 540 Each 3 06/14/2017 9 glucagon (GLUCAGON EMERGENCY KIT, HUMAN,) 1 mg emergency injection kit Inject 1 mg into the muscle as needed for Low Blood Sugar. 4 Kit 6 06/14/2017 0 insulin glargine (BASAGLAR KWIKPEN) 100 unit/mL (3 mL) injection pen Inject 30 Units into the skin at bedtime for 90 days. 30 mL 3 06/14/2017 1 insulin aspart (NOVOLOG FLEXPEN) 100 unit/mL injectable pen Inject 6 units at breakfast, 7-12 units with lunch and dinner. 1:10 carb ratio 30 mL 3 06/14/2017 9 insulin glargine (BASAGLAR KWIKPEN) 100 unit/mL (3 mL) injection pen Inject 30 Units into the skin at bedtime for 90 days. 30 mL 06/14/2017 8 blood glucose (ONETOUCH VERIO) test stripsIndications: Type 1 diabetes mellitus without complication ([facility]) 4-6 units daily 540 Each 3 06/14/2017 8 insulin aspart (NOVOLOG FLEXPEN) 100 unit/mL injectable pen Inject 6 units at breakfast, 7-12 units with lunch and dinner. 1:10 carb ratio 30 mL 06/14/2017 8 insulin pen needles 31G x 5/16 (BD INSULIN PEN NEEDLE UF SHORT) Use 5 pen needles as directed daily. 500 Each 06/14/2017 8 glucagon (GLUCAGON EMERGENCY KIT, HUMAN,) 1 mg emergency injection kit Inject 1 mg into the muscle as needed for Low Blood Sugar. 4 Kit 6 06/14/2017 8 ketone urine reagent strip (KETOSTIX) Use 1 Strip as directed as needed (hyperglycemia). if BG is greater than 250 (for 2 consecutive readings), if ill, and/or if vomiting. 50 Each 3 06/14/2017 0 documented in this encounter Miscellaneous Notes * Telephone Encounter - Christos Schulz RN - 06/14/2017 1138 ESTFrom: Carolyn Portillo To: Lorraine Figueroa ANP Sent: 06/14/2017 8:01 EST Subject: Medication Renewal Request Original authorizing provider: BALDO Lal would like a refill of the following medications: ketone urine reagent strip (KETOSTIX) [BALDO Lal] GLUCAGON EMERGENCY KIT, HUMAN, 1 mg emergency injection kit [BALDO Lal] insulin pen needles 31G x 5/16 (BD INSULIN PEN NEEDLE UF SHORT) [BALDO Lal] insulin aspart (NOVOLOG FLEXPEN) 100 unit/mL injectable pen [BALDO Lal] blood glucose (ONETOUCH VERIO) test strips [BALDO Lal] insulin glargine (BASAGLAR KWIKPEN) 100 unit/mL (3 mL) injection pen [BALDO Lal] Preferred pharmacy: Other - [facility] Comment: I will need to have all prescriptions sent to [facility] RXBIN#[id number] RXPCN: [id number] [id number] documented in this encounter Plan of Treatment Not on file documented as of this encounter Visit Diagnoses Diagnosis Type 1 diabetes mellitus without complication ([facility])- Primary Type I (juvenile type) diabetes mellitus without mention of complication, not stated as uncontrolled documented in this encounter Discontinued Medications Medication Sig Discontinue Reason Start Date End Da te GLUCAGON EMERGENCY KIT, HUMAN, 1 mg emergency injection kit use as directed by prescriber Reorder 02/11/2016 06/14/2017 insulin pen needles 31G x 5/16 (BD INSULIN PEN NEEDLE UF SHORT) Use 5 pen needles as directed daily. Reorder 02/11/2016 06/14/2017 insulin aspart (NOVOLOG FLEXPEN) 100 unit/mL injectable pen Inject 6 units at breakfast, 7-12 units with lunch and dinner. 1:10 carb ratio Reorder 08/30/2016 06/14/2017 blood glucose (ONETOUCH VERIO) test stripsIndications:Type 1 diabetes mellitus without complication ([facility]) 4-6 units daily Reorder 01/12/2017 06/14/2017 insulin glargine (BASAGLAR KWIKPEN) 100 unit/mL (3 mL) injection pen Inject 30 Units into the skin at bedtime for 90 days. Reorder 01/12/2017 06/14/2017 ketone urine reagent strip (KETOSTIX) Use 1 Strip as directed as needed (hyperglycemia) if BG is greater than 250 (for 2 consecutive readings), if ill, and/or if vomiting.. Reorder 05/17/2014 06/14/2017 insulin aspart (NOVOLOG FLEXPEN) 100 unit/mL injectable pen Inject 6 units at breakfast, 7-12 units with lunch and dinner. 1:10 carb ratio Reorder 06/14/2017 06/14/2017 insulin glargine (BASAGLAR KWIKPEN) 100 unit/mL (3 mL) injection pen Inject 30 Units into the skin at bedtime for 90 days. Reorder 06/14/2017 06/14/2017 insulin pen needles 31G x 5/16 (BD INSULIN PEN NEEDLE UF SHORT) Use 5 pen needles as directed daily. Reorder 06/14/2017 06/14/2017 glucagon (GLUCAGON EMERGENCY KIT, HUMAN,) 1 mg emergency injection kit Inject 1 mg into the muscle as needed for Low Blood Sugar. Reorder 06/14/2017 06/14/2017 blood glucose (ONETOUCH VERIO) test stripsIndications:Type 1 diabetes mellitus without complication ([facility]) 4-6 units daily Reorder 06/14/2017 06/14/2017 documented as of this encounter Care Teams Lithostripper Relationship Specialty Start Date End Date Huseyin Zazueta MD [address] [place] [address] PCP - General 07/16/09 documented as of this encounter
--- OUTSIDE RECORDS SUMMARY | 2024-05-02 15:19 | XMS_ITS | Encounter Summary ---
Author Organization [facility] Address [address] [place] [address] Care Team Providers Care Rivet Hole Machine Operator Name Role Phone Huseyin Zazueta MD Primary Care Provider [phone] Reason for Visit * Reason Comments Other Encounter Details Date Type Department Care Team (Late st Contact Info) Description 05/25/2015 Refill [facility] Endocrinology - [facility] [address] [place] [address] Lorraine Figueroa NP [address] [address] [place] [address] Other Social History Tobacco Use [...] on file documented as of this encounter Ordered Prescriptions Prescription Sig Dispense Quantity Refills Last Filled Start Date End Date blood glucose (ONETOUCH ULTRA TEST) test strips 8 Strips daily E10.65 800 Each 3 05/27/2015 12/21/2016 insulin glargine (LANTUS SOLOSTAR) 100 unit/mL (3 mL) injection pen Inject 30 Units into the skin once daily 30 mL 2 05/27/2015 04/08/2016 documented in this encounter Plan of Treatment Not on file documented as of this encounter Visit Diagnoses Not on filedocumented in this encounter Discontinued Medications Medication Sig Discontinue Reason Start Date End Da te insulin glargine (LANTUS SOLOSTAR) 100 unit/mL (3 mL) injection penIndications:Type 1 diabetes mellitus ([facility]) 20 units in the am, 5 unit pm. Reorder 05/17/2014 05/25/2015 blood glucose (ONE TOUCH ULTRA TEST) test strips 8 Strips daily ICD-9: 648.03. Reorder 03/15/2014 05/27/2015 documented as of this encounter Care Teams Rivet Hole Machine Operator Relationship Specialty Start Date End Date Huseyin Zazueta MD [address] [place] [address] PCP - General 07/16/09 documented as of this encounter
--- OUTSIDE RECORDS SUMMARY | 2024-05-02 15:19 | XMS_ITS | Encounter Summary ---
Author Organization [facility] Address [address] [place] [address] Care Team Providers Care Knife Sharpener Name Role Phone Huseyin Zazueta MD Primary Care Provider [phone] Reason for Visit * Reason Onset Date Comments Medications Refill 03/15/2014 Encounter Details Date Type Department Care Team (Late st Contact Info) Description 03/15/2014 Telephone [facility] Endocrinology - [place] [address] [place] [address] Carlin Manriquez MD [address] [place] [address], [address] [address] Medications Refill Social History Tobacco Use Types [...] Filled Start Date End Date blood glucose (ONE TOUCH ULTRA TEST) test strips 8 Strips daily ICD-9: 648.03. 800 Each 3 03/15/2014 05/27/2015 documented in this encounter Miscellaneous Notes * Telephone Encounter - Nikky Mckinley - 03/15/2014 1432 EDT Medication(s) Requested: One touch ultra test strips Pharmacy: [facility] Last Refill Date: 01/26/13 Last Visit Date: 08/30/13 Next Visit Date: Visit date not found Is patient out of medication? Yaritza Mckinley 03/15/2014 14:32 Pt said she test 7 to 8 times a day. Pt has an appt with Camelia Figueroa on 04/04/14 documented in this encounter Plan of Treatment Not on file documented as of this encounter Visit Diagnoses Not on filedocumented in this encounter Discontinued Medications Medication Sig Discontinue Reason Start Date End Da te blood glucose (ONE TOUCH ULTRA TEST) test strips 12 Strips by misc (non-drug; combo route) route daily. ICD-9: 648.03 Reorder 01/26/2013 03/15/2014 documented as of this encounter Care Teams Knife Sharpener Relationship Specialty Start Date End Date Huseyin Zazueta MD [address] [place] [id number] PCP - General 07/16/09 documented as of this encounter
--- OUTSIDE RECORDS SUMMARY | 2024-05-02 15:19 | XMS_ITS | Encounter Summary ---
Author Organization [facility] Address [address] [place] [address] Care Team Providers Care Combat Systems Officer Name Role Phone Peter Hernández MD Primary Care Provider [phone] Encounter Details Date Type Department Care Team (Late st Contact Info) Description 05/10/2017 Results Only [facility] [phone] Peter Hernández MD [address] [place] [address] Social History Tobacco Use Types Packs/Day Years [...] 01/12/2017 10:08 EDT documented in this encounter Plan of Treatment Not on file documented as of this encounter Procedures Procedure Name Priority Date/Time Associated Diagnosis Comments PAP TEST- RESULT ONLY Routine 05/10/2017 0:00 EST documented in this encounter Results * PAP TEST- RESULT ONLY (05/10/2017 0:00 EST) Pathology Report: CYTOPATHOLOGY REPORT Reports generated via electronic interface contain original data; however they are lacking the format of the original report. Caution should be taken when reading/interpreting unformatted reports. Name: ? CAROLYN SOSA ? Accession #: ? [id number] : ? 1980 (Age: 36) ??F ?Collect Date: ? 05/10/2017 Location: ? [facility] ? Receive Date: ? 05/12/2017 Provider: ?PETER HERNÁNDEZ MD Copy to: ? Specimen/Source: ?Pap Test, Cervix, ThinPrep Imaging System with manual evaluation Last Menstrual Period: ? SPECIMEN ADEQUACY ? Satisfactory for Evaluation - transformation zone component present GENERAL CATEGORIZATION ? Epithelial Cell Abnormality INTERPRETATION ? Squamous Cell Abnormality - High grade squamous intraepithelial lesion (HSIL). EDUCATIONAL NOTES/RECOMMENDATION S ? [facility] recommends following ASCCP's 2012 Updated Consensus Guidelines for the Management of Abnormal Cervical Cancer Screening Tests and Cancer Precursors (JLGTD, 2013; 17(5):S1-S27). ??Consensus guidelines are available online at www.asccp.org. Case reviewed at Intradepartmental Consultation Conference ? Document reviewed and electronically signed by: ? EMMA HANKINS MD ? Report Date: ??05/25/2017 09:40 End of Report [facility] 05/10/2017 05/12/2017 us Peter Hernández MD PATHOLOGY ORDERABLES Final Resu lt [facility] [address] [place] [address] documented in this encounter Visit Diagnoses Not on filedocumented in this encounter Care Teams Combat Systems Officer Relationship Specialty Start Date End Date Peter Hernández MD [address] [place] [address] PCP - General 07/16/09 documented as of this encounter
--- OUTSIDE RECORDS SUMMARY | 2024-05-02 15:19 | XMS_ITS | Encounter Summary ---
Author Organization [facility] Address [address] [place] [address] Care Team Providers Care Client Services Director Name Role Phone Huseyin Zazueta MD Primary Care Provider [phone] Reason for Visit * Reason Onset Date Comments DME 09/01/2017 Encounter Details Date Type Department Care Team (Late st Contact Info) Description 09/01/2017 Telephone [facility] Endocrinology - [facility] [address] [place] [address] Lorraine Figueroa NP [address] [facility] [address] [place] [address] DME Social History Tobacco Use [...] Telephone Encounter - AlexAury roque - 09/01/2017 1443 EDT Faxed progress note and emailed CMN to [facility] on 09/01/17. Sent to be scanned. documented in this encounter Plan of Treatment Not on file documented as of this encounter Visit Diagnoses Not on filedocumented in this encounter Care Teams Client Services Director Relationship Specialty Start Date End Date Huseyin Zazueta MD [address] [place] [address] PCP - General 07/16/09 documented as of this encounter
--- OUTSIDE RECORDS SUMMARY | 2024-05-02 15:19 | XMS_ITS | Encounter Summary ---
Author Organization [facility] Address [address] [place] [address] Care Team Providers Care Acrylic Fabricator Name Role Phone Huseyin Zazueta MD Primary Care Provider [phone] Reason for Visit * Reason Comments Other Encounter Details Date Type Department Care Team (Late st Contact Info) Description 12/25/2014 Refill [facility] - [facility] [address] [place], [place] [id number] Angelica Pollard, ALYCE [address], [facility] [address] [place] [address] Other Social History Tobacco Use Types Packs/Day [...] on file documented as of this encounter Miscellaneous Notes * Telephone Encounter - Luz Marina Ceja - 12/26/2014 1240 EDT LM for client to call back to set up appointment. We can refill script as soon as appointment has been made. documented in this encounter Plan of Treatment Not on file documented as of this encounter Visit Diagnoses Not on filedocumented in this encounter Care Teams Acrylic Fabricator Relationship Specialty Start Date End Date Huseyin Zazueta MD [address] [place] [address] PCP - General 07/16/09 documented as of this encounter
--- OUTSIDE RECORDS SUMMARY | 2024-05-02 15:19 | XMS_ITS | Encounter Summary ---
Author Organization [facility] Address [address] [place] [address] Care Team Providers Care Carpenter Supervisor Wooden Ship Name Role Phone Huseyin Zazueta MD Primary Care Provider [phone] Encounter Details Date Type Department Care Team (Latest Contact Info) Description 05/10/2017 15:21 EST - 05/10/2017 23:59 EST Hospital Encounter [address] [address] Unknown, Provider, MD Discharge Disposition: Home or Self Care Social History Tobacco Use Types Packs/Day Years [...] 01/12/2017 10:08 EDT documented in this encounter Medications at Time of Discharge acetaminophen (TYLENOL) 325 mg tablet Take 1-2 Tabs by mouth every 4 hours. 09/07/2013 ibuprofen (MOTRIN) 400 mg tablet Take 1 Tab by mouth every 4 hours as needed for Pain. 09/09/2013 blood glucose (ONETOUCH VERIO) test stripsIndications: Type 1 diabetes mellitus without complication (HCC-CMS) 4-6 units daily 540 Each 3 01/12/2017 8 blood glucose meter (ONETOUCH VERIO IQ METER)Indications: Type 1 diabetes mellitus without complication (HCC-CMS) Use as directed as needed (glucose monitoring). 1 Each 01/12/2017 9 GLUCAGON EMERGENCY KIT, HUMAN, 1 mg emergency injection kit use as directed by prescriber 4 Kit 6 02/11/2016 8 insulin aspart (NOVOLOG FLEXPEN) 100 unit/mL injectable pen Inject 6 units at breakfast, 7-12 units with lunch and dinner. 1:10 carb ratio 30 mL 3 08/30/2016 8 insulin glargine (BASAGLAR KWIKPEN) 100 unit/mL (3 mL) injection pen Inject 30 Units into the skin at bedtime for 90 days. 27 mL 3 01/12/2017 8 insulin pen needles 31G x 5/16 (BD INSULIN PEN NEEDLE UF SHORT) Use 5 pen needles as directed daily. 500 Each 3 02/11/2016 8 ketone urine reagent strip (KETOSTIX) Use 1 Strip as directed as needed (hyperglycemia) if BG is greater than 250 (for 2 consecutive readings), if ill, and/or if vomiting.. 50 Each 3 05/17/2014 8 documented as of this encounter Discharge Disposition Disposition Code Departure Means Destination Home or Self Halfway documented in this encounter Plan of Treatment Not on file documented as of this encounter Visit Diagnoses Not on filedocumented in this encounter Care Teams Carpenter Supervisor Wooden Ship Relationship Specialty Start Date End Date Huseyin Zazueta MD [address] [place] [address] PCP - General 07/16/09 documented as of this encounter
--- OUTSIDE RECORDS SUMMARY | 2024-05-02 15:19 | XMS_ITS | Encounter Summary ---
Author Organization [facility] Address [address] [place] [address] Care Team Providers Care Inside Sales Coordinator Name Role Phone Huseyin Zazueta MD Primary Care Provider [phone] Reason for Visit * Reason Onset Date Comments Letter for School/Work 07/16/2014 Encounter Details Date Type Department Care Team (Late st Contact Info) Description 07/16/2014 Telephone [facility] Endocrinology - [address] [id number] Raffaele Nichole, RN CDE Letter for School/Work Social History Tobacco Use Types Packs/Day Years [...] encounter Miscellaneous Notes * Telephone Encounter - Raffaele Nichole CDE - 07/16/2014 0941 EST email from pt: Khurram Medellin, I am currently in the market for a new job. I am extremely interested in getting a position with the [employer] and was wondering if you (or whoever), would be willing to write a letter stating that I do have a disability that can and has limited my ability to function normally. It would allow me to get a job without having to explain any diabetic episodes that happen while on the job and would prevent any issues that could come up with absences or needs for breaks to eat, etc. Please let me know. I???ve attached a sample note that the government has provided for schedule A (individuals with disabilities) applicants. Thank you! Carolyn Portillo This is my reply: Good morning, Just returned from being out and will be able to write the letter probably later this week. Please send me an email on Tuesday if you have not heard back from me at that point. Hope things are going well. raffaele documented in this encounter Plan of Treatment Not on file documented as of this encounter Visit Diagnoses Not on filedocumented in this encounter Care Teams Inside Sales Coordinator Relationship Specialty Start Date End Date Huseyin Zazueta MD [address] [place] [address] PCP - General 07/16/09 documented as of this encounter
--- OUTSIDE RECORDS SUMMARY | 2024-05-02 15:19 | XMS_ITS | Encounter Summary ---
Author Organization [facility] Address [address] [place] [address] Care Team Providers Care Labeling Machine Operator Name Role Phone Huseyin Zazueta MD Primary Care Provider [phone] Reason for Visit * Reason Comments Post- Care Encounter Details Date Type Department Care Team (Late st Contact Info) Description 11/01/2013 14:00 EDT Office Visit [facility] Obstetrics & Midwifery - [address] [id number] Magdalena Arzate MD [address] [place] [address], [address] [place] [address] care following delivery (Primary Dx); Encounter for Depo-Provera contraception Discharge Disposition: Auto Discharge Social History Tobacco [...] Sign Reading Time Taken Comments Blood Pressure 104/60 11/01/2013 1356 EDT Pulse - - Temperature - - Respiratory Rate - - Oxygen Saturation - - Inhaled Oxygen Concentration - - Weight 52.8 kg (116 lb 6.4 oz) 11/01/2013 1356 E DT Height - - Body Mass Index 21.28 09/07/2013 0958 EDT documented in this encounter Discharge Diagnoses Diagnosis V25.49 CONTRACEPT SURVEILL NEC[ICD-9-CM] documented in this encounter Ordered Prescriptions Prescription Sig Dispense Quantity Refills Last Filled Start Date End Date medroxyPROGESTERon e (DEPO-PROVERA) 150 mg/mL injection Inject 1 mL into the muscle every 12 weeks. 1 mL 4 11/01/2013 12/02/2015 documented in this encounter Discharge Disposition Disposition Code Departure Means Destination Auto Discharge documented in this encounter Progress Notes * AbdiasYaritzaJose Ramon jonosoriojen, ANGELICA - 11/02/2013 1445 EDT Carolyn Portillo is a 32 y.o. female who presents 6 week(s) post following a low cervical transverse section. The delivery was at 37 gestational weeks, LTCS for NRFA. Suspectedfetal aneurism of Vein of Salazar and dilated third ventricle seen on ultrasound, decision made for emergency delivery by . States they have settled into routine at home, older sibling adjusting well to new baby. complicated by Type I Diabetes, Carolyn followed up with Hugh Jerome by phone initially while in [place] to adjust pump settings but has not been paying attention to her blood sugars for the past month. Anesthesia: Spinal. course has been uncomplicated Baby's course has been doing well with some problems: hospitalized for 8 days at [facility] followed by 1 week at [facility], found not to have vein of salazar but some concern for brain blood vessel abnormalities originally, then unstable glucoses. Plan is for 6 month follow-up in [place]. Babyis feeding at breast and pumped breastmilk by bottle . Current Status: Bleeding: no bleeding. Bowel function is normal. Bladder function is normal, mild stress incontinence depression screening: negative. EPDS score 6. Patient is not sexually active. Contraception method: desires Depo-Provera today, then Mirena Returning to work: Yes, family/social support is good I have fully reviewed the and intrapartum course, delivery events, and above subjective information. Additional provider comments none. Medical History on file. Past Medical History Diagnosis Date ??? Kidney stones ??? hematuria & adbominal pain ??? Diabetes mellitus 2008 eye exam annually No current outpatient prescriptions on file. Allergies: Allergies Allergen Reactions ??? Levemir (Insulin Detemir) Swelling and Other (See Comments) Swelling and bruising and itching at site of injection Review of Systems Pertinent items are noted in Subjective/HPI Objective: BP 104/60 Wt 52.799 kg (116 lb 6.4 oz) BMI 21.28 kg/m2 LMP 12/22/2012 ? Unknown Pap not done, Hx ASC-US pap 2011 with negative HPV General: alert, fatigued, cooperative, no distress Breasts: Inspection negative. No nipple discharge or bleeding. No masses or nodularity palpable Lungs: clear to auscultation bilaterally Heart: regular rate and rhythm Abdomen: normal findings: no masses palpable, soft, non-tender, scar well healed, approximated, without exudate or erythema Vulva: normal Vagina: Normal vagina. No discharge, exudate, lesion, erythema Cervix: no lesions, multiparous appearance, no cervical motion tenderness Corpus: normal size, contour, position, consistency, mobility, non-tender Adnexa: Normal adnexa, No mass, fullness, tenderness Rectal Exam: Not performed. Assessment: Normal exam Type I diabetes on insulin pump Plan: 1. Contraception: Depo-Provera ordered and given today, then wants Mirena insert Education Topic: IUD contraception Physical Characteristics of IUDs, duration 5 years for Mirena, 10 years for ParaGard Patient???s risk for STDs Effectiveness, and how the IUDs work; less or no bleeding with Mirena, more with ParaGard Insertion and removal procedures Potential for syq-li-rdpitl costs Instructions for use and follow-up visits Possible side effects and complications, including spontaneous expulsion of ~1% Signs/symptoms of possible complications that require an immediate return to the clinic Choice of Mirena or ParaGard Mirena chosen. IUD counseling was performed, Opportunity for questions provided. Method: Demonstration and Verbal Taught to: Patient Barriers: None Outcomes: independent 2. Kegel instructions given for stress incontinence 3. Urged to follow-up with endocrine within the next month to assess glucose control 4. Follow up: 1-2 weeks for Mirena insert, next pap due 03/2015 * Lyubov Mccallum RN - 11/01/2013 1505 EDT Patient Education Topic: Depo-Provera Method: Verbal Taught to: Patient Barriers: None Outcomes: verbalized understanding I was supervised by Dr. Arzate who was present and immediately available in the office suite for Depo-Provera. Lyubov Mccallum RN 11/01/2013 15:05 documented in this encounter Miscellaneous Notes * Addendum Note - Beatriz Bailon - 11/05/2013 1512 EDTAddended by: BEATRIZ BAILON on: 11/05/2013 15:12 Modules accepted: Orders documented in this encounter Plan of Treatment Not on file documented as of this encounter Procedures Procedure Name Priority Date/Time Associated Diagnosis Comments POCT TEST, VISUAL READ Routine 11/01/2013 14:44 EDT Encounter for Depo-Provera contraception documented in this encounter Results * POCT URINE TEST (11/01/2013 14:44 EDT) Test, Urine, POC Negative Reference Range, Negative POINT OF CARE Comment:INFORMATION TAKEN FR OM THE LAB LOG Control Line Present Yes POINT OF CARE Background Clear? Yes POINT OF CARE Urine specimen (specimen) 11/01/2013 14:44 EDT Magdalena Arzate MD POINT OF CARE TEST OR DERABLES Final Result POINT OF CARE documented in this encounter Visit Diagnoses Diagnosis care following delivery- Primary Routine follow-up Encounter for Depo-Provera contraception Surveillance of other previously prescribed contraceptive method documented in this encounter Administered Medications Inactive Administered Medications - up to 3 most recent administrations Medication Order MAR Action Action Date Dose Rate Site medroxyPROGESTERone (DEPO-PROVERA) injection 150 mg 150 mg, intramuscular, EVERY 3 MONTHS, 4 doses, First dose on Renetta 11/01/13 at 1515, Last dose on Renetta 08/01/14 at 1515, Routine Given 11/01/2013 14:59 EDT 150 mg Right Gluteus Medius/Ventrogluteal documented in this encounter Care Teams Labeling Machine Operator Relationship Specialty Start Date End Date Huseyin Zazueta MD [address] [place] [address] PCP - General 07/16/09 documented as of this encounter
--- OUTSIDE RECORDS SUMMARY | 2024-05-02 15:19 | XMS_ITS | Encounter Summary ---
Author Organization [facility] Address [address] [place] [address] Care Team Providers Care Compo Conveyor Operator Name Role Phone Huseyin Zazueta MD Primary Care Provider Reason for Visit * Reason Onset Date Comments Medication Problem 05/17/2014 Encounter Details Date Type Department Care Team (Late st Contact Info) Description 05/17/2014 Telephone [facility] Endocrinology - [address] [address] Celeste Vaz CDE [address] [facility] [address] [place] [address] Medication Problem Social History Tobacco Use Types Packs/Day Years [...] encounter Miscellaneous Notes * Telephone Encounter - Celeste Vaz - 05/17/2014 1329 EST Need total daily dosing on novolog and ketostrips. Up to 40 units daily, and keto strips, #50 for a3 months supply. documented in this encounter Plan of Treatment Not on file documented as of this encounter Visit Diagnoses Not on filedocumented in this encounter Care Teams Compo Conveyor Operator Relationship Specialty Start Date End Date Huseyin Zazueta MD [address] [place] [address] PCP - General 07/16/09 documented as of this encounter
--- OUTSIDE RECORDS SUMMARY | 2024-05-02 15:19 | XMS_ITS | Encounter Summary ---
Author Organization [facility] Address [address] [place] [address] Care Team Providers Care Cornice Maker Name Role Phone Huseyin Zazueta MD Primary Care Provider [phone] Reason for Visit * Reason Onset Date Comments Medication Questions 01/12/2017 Refill for Lantus Encounter Details Date Type Department Care Team (Late st Contact Info) Description 01/12/2017 Telephone [facility] Endocrinology - [facility] [address] [place] [address] Lorraine Figueroa NP 62 [facility] [address] [place] [address] Medication Questions (Refill for Lantus) Social History Tobacco Use Types Packs/Day Years [...] Last Filled Start Date End Date insulin glargine (BASAGLAR KWIKPEN) 100 unit/mL (3 mL) injection pen Inject 30 Units into the skin at bedtime for 90 days. 27 mL 3 01/12/2017 8 documented in this encounter Miscellaneous Notes * Telephone Encounter - Christos Schulz RN - 01/12/2017 1206 EDT Resubmitted prescription for Basaglar 30 Units at HS per provider. Spoke with [facility] andlet them know. * Telephone Encounter - Elmer Wheeler - 01/12/2017 1147 EDT Reason for Call: Medication Questions (Refill for Lantus) Summary/Symptoms: Script received for Lantus and directions state Basalglar. What are we really asking for? Elmer Wheeler 01/12/2017 11:47 documented in this encounter Plan of Treatment Not on file documented as of this encounter Visit Diagnoses Not on filedocumented in this encounter Discontinued Medications Medication Sig Discontinue Reason Start Date End Da te insulin glargine (LANTUS SOLOSTAR) 100 unit/mL (3 mL) injection penIndications:Type 1 diabetes mellitus without complication ([facility]) Inject 30 Units into the skin at bedtime. Basalglar Insurance does not cover 01/12/2017 01/12/2017 documented as of this encounter Care Teams Cornice Maker Relationship Specialty Start Date End Date Huseyin Zazueta MD [address] [place] [address] PCP - General 07/16/09 documented as of this encounter
--- OUTSIDE RECORDS SUMMARY | 2024-05-02 15:19 | XMS_ITS | Encounter Summary ---
Author Organization [facility] Address [address] [place] [address] Care Team Providers Care Atomic Physics Professor Name Role Phone Huseyin Zazueta MD Primary Care Provider [phone] Encounter Details Date Type Department Care Team (Late st Contact Info) Description 03/15/2016 Orders Only [facility] Endocrinology - [facility] [address] [place], [place] [id number] Lorraine Figueroa NP 62 [facility] [address] [place] [address] Type 1 diabetes mellitus without complication ([facility]) (Primary Dx) Social History Tobacco Use Types [...] 12/02/2015 8:55 EDT documented in this encounter Plan of Treatment Not on file documented as of this encounter Results * (ABNORMAL) POCT HEMOGLOBIN A1C (01/12/2017 10:06 EDT) Hemoglobin A1C, POC Interfaced 8.5(H) <5.7 % 01/12/2017 10:21 EDT [facility] body sander ID [id number] 01/12/2017 10:21 EDT [facility] Comment:Test performed at En docrinology Blood specimen (specimen) BLOOD SPECIMEN / Unknown 01/12/2017 10:06 EDT 01/12/2017 10:21 EDT us Lorraine Figueroa OSTEOLOGY TEACHER POINT OF CARE TEST ORDERABL ES Final Result [facility] [address] [place] [address] documented in this encounter Visit Diagnoses Diagnosis Type 1 diabetes mellitus without complication ([facility])- Primary Type I (juvenile type) diabetes mellitus without mention of complication, not stated as uncontrolled documented in this encounter Care Teams Atomic Physics Professor Relationship Specialty Start Date End Date Huseyin Zazueta MD [address] [place] [address] PCP - General 07/16/09 documented as of this encounter
--- OUTSIDE RECORDS SUMMARY | 2024-05-02 15:19 | XMS_ITS | Encounter Summary ---
Author Organization [facility] Address [address] [place] [address] Care Team Providers Care Outside Sales Representative Name Role Phone Huseyin Zazueta MD Primary Care Provider [phone] Reason for Visit * Reason Onset Date Comments DME 08/26/2017 Update 08/26/2017 Needs date on e CMN that was sent over Encounter Details Date Type Department Care Team (Late st Contact Info) Description 08/26/2017 Telephone [facility] Endocrinology - [facility] [address] [place] [address] Lorraine Figueroa NP [address] [facility] [address] [place] [address] DME; Update (Needs date on the CMN that was sent over) Social History Tobacco Use Types Packs/Day Years [...] Telephone Encounter - Christos Schulz RN - 08/26/2017 1552 EDT Form dated and re-faxed as requested. * Telephone Encounter - Jeannette Damico - 08/26/2017 1550 EDT Reason for Call: DME and Update (Needs date on the CMN that was sent over) Summary/Symptoms: [facility] states she needs date on CMN that was sent over. Jeannette Damico 08/26/2017 15:50 * Telephone Encounter - Mally Gonzalez - 08/26/2017 1510 EDT Dexcom certificate of medical necessity form filled out for diabetes supplies form got sent to be faxed and scanned on 08-26-17 [employer] Patient information form filled out for diabetes supplies form got sent to be faxed and scanned with chart notes and blood sugar log. 08-26-2017 documented in this encounter Plan of Treatment Not on file documented as of this encounter Visit Diagnoses Not on filedocumented in this encounter Care Teams Outside Sales Representative Relationship Specialty Start Date End Date Huseyin Zazueta MD [address] [place] [address] PCP - General 07/16/09 documented as of this encounter
--- OUTSIDE RECORDS SUMMARY | 2024-05-02 15:19 | XMS_ITS | Encounter Summary ---
Author Organization [facility] Address [address] [place] [address] Care Team Providers Care Water Inspector Name Role Phone Huseyin Zazueta MD Primary Care Provider [phone] Reason for Visit * Reason Comments Diabetes Encounter Details Date Type Department Care Team (Latest Contact Info) Description 11/07/2014 16:00 EDT Office Visit [facility] Endocrinology - [facility] [address] [place] [address] Lorraine Figueroa NP [address] [facility] [address] [place] [address] Type 1 diabetes mellitus (CMS-HCC) [...] Sign Reading Time Taken Comments Blood Pressure 110/61 11/07/2014 1601 EDT Pulse 97 11/07/2014 1601 EDT Temperature - - Respiratory Rate - - Oxygen Saturation - - Inhaled Oxygen Concentration - - Weight 59.4 kg (131 lb) 11/07/2014 1601 EDT Height 157.5 cm (5' 2.01) 11/07/2014 1601 EDT Body Mass Index 23.95 11/07/2014 1601 EDT documented in this encounter Discharge Diagnoses Diagnosis 250.01 DIABETES UNCOMPL FOREST-TYPE I[ICD-9-CM] documented in this encounter Patient Instructions * Patient Instructions* Lorraine Figueroa ANP - 11/07/2014 16:48 EDT Increase Lantus to 28 - 30 units and Novolog 6 at breakfast, 7-12 at meals Follow- up in March documented in this encounter Progress Notes * Lorraine Figueroa ANP - 11/07/2014 1635 EDT Endocrinology Follow-up Note Date of Consultation: 11/07/2014 HPI: Carolyn Portillo is a 33 y.o. female seen in follow-up in the adult endocrine clinic for her type 1 diabetes. I saw her once before in May when 6 months. Hemoglobin A1c in March was 8.1, is up to 9.7% today. PMH: Diabetes since 07/2009. . During , she was admitted at gestational age 25 weeks with DKA and received steroids for lung maturity. She had significant spikes in her glucoses around that time which did stabilize. She was seen through her by our endocrine team in the high risk MF clinic. She was started on an insulin pump & sensor 08/30 by our educator. At 36 weeks bri salmeron had an emergency because of concerns the fetus had a Vein of Florentin ( found to be negative,. And a dilated 3rd ventricle. Her son 5 fodzyf84 oz.), was transferred to [facility] for 8 days and then [facility] for another week. Now he daughter is stable and home. She has 3 other children at home. She is on Depo hope to get an IUD. She currently is off the pump saying the catheters gave her welts at the insertion sites. She also had some site infections despite trying different catheters. She also had problems with it pulling out of her thighs where she preferred to wear it. 1. Obstetrics History: : 6 Para: 3 [...] 6 live birtht 2013 36 weeks Female Current diabetes regimen includes - Lantus insulin 25 units AM - NovoLog insulin with an insulin to carb ratio of 1:10 usually 5 units AM (has coffee only), and 5-10 lunch & dinner - Correction factor - 1:30 questimates If >200 She says her weight fluctutates a lot but denies any eating disorders. It is 15 pounds compared to a year ago. She plans to start workouts soon. She snacks on chips. She continues to smoke. She started at age 14 and has tried, to quit cold turkey, and Chantrix. She has talked with [facility] [facility] in the past and advised to call. She continues to work with her ex- on legal ramifications of having her move her children further away from him. She was commuting a long way to work for her work in [employer] in [place]. She is checking glucoses 4-5 times daily. Records for past 2 weeks: During the PM 46-349 one low Fasting- to 30, ranging 107-306. Most scattered in the 200s Pre lunch- average 271. Most scattered in 200s Post lunch- average 240, ranging 234 2335 Pre supper - supper average 2:30, ranging 41-436. Most in the 200s Bedtime 1 reading of 58. Her lows both follow high blood sugars and she feels are related to activity mostly but also may be over correcting. C/O occasional lows (4 In past month 49-54) - all at night . She wakes up and eats a snack. Hypoglycemia/availability of glucagon emergency kit at home: has glucagon and boyfriend and oldest daughter know how to use it, has never had to use it Lab Results Component Value Date HGBA1C 8.1* 04/04/2014 HGBA1C 7.2 07/09/2013 HGBA1C 9.3* 08/18/2012 HGBA1C 9.4* 05/09/2012 HGBA1C 9.0* 12/28/2011 Physical activity: Fairly active, walks likes to outdoors. does recreational exercise with children and boyfriend Previous referral to dietitian/healthcare educator: Sees Lacie Nichole and Pam Miranda [...] Past Surgical History Procedure Laterality Date ??? [place] tooth extraction Current Outpatient Prescriptions Medication Sig [...] aspart (NOVOLOG FLEXPEN) 100 unit/mL injectable pen 1/10 carb ratio. 15 mL 3 ??? insulin aspart (NOVOLOG) 100 unit/mL injection Up to 80 units daily via insulin pump. 3 Vial 11 ??? insulin glargine (LANTUS SOLOSTAR) 100 unit/mL (3 mL) injection pen 20 units in the am, 5 unit pm. (Patient taking differently: Inject 25 Units into the skin every morning ) 30 mL 3 ??? insulin pen needles 31G x 5/16 (BD INSULIN PEN NEEDLE UF SHORT) Use 5 pen needles as directed daily. 500 Each 3 ??? ketone urine reagent strip (KETOSTIX) Use 1 Strip as directed as needed (hyperglycemia) if BG is greater than 250 (for 2 consecutive readings), if ill, and/or if vomiting.. 50 Each 3 ??? medroxyPROGESTERone (DEPO-PROVERA) 150 mg/mL injection Inject 1 mL into the muscle every 12 weeks. 1 mL 4 ??? VIT/IRON FUMARATE/FA ( ORAL) Take by mouth. No current facility-administered medications for this visit. Allergies: Levemir History Social History ??? Marital [...] reviewed and are negative. Physical Examination: BP 110/61 Pulse 97 Ht 157.5 cm (62.01) Wt 59.421 kg (131 lb) BMI 23.95 kg/m2 Constitutional: Oriented to person, place, and time. Appears well-developed and well-nourished. Comfortable. No distress. HENT: Head: Normocephalic and atraumatic. Eyes: Conjunctivae and EOM are normal. Pupils [...] Psychiatric: Normal mood and affect. Laboratory Data: See EMR done at [facility]. April 25, 2014, LDL 126, triglycerides 89, total cholesterol 198, HDL 54, TSH 0.99, creatinine 0.56. Urine microalbumin/ratio unremarkable Today is 9.7% compared to 8.1% last [...] 0.96 02/20/2010 TSH 0.57 07/17/2009 Assessment: Carolyn Portillo is a 33 y.o. female 1. Type 1 diabetes mellitus. 34-year-old female with Type 1 DM poor control. Glycemic control is slipped . I suspect stress of working and having 3 children. Insulin pump was stopped due to rashes and infections as well She has had wide fluctuations in her control since, terence at bedtime. She also has occasional lows during the PM. She denies hypoglycemia unawareness. She spikes after meals and is convinced that giving the meal time injections 15- 30 minutes before the meals help. No signs of micro or macrovascular disease. BP stable no proteinuria No KENDRICK and ARB not indicated - Deferred to PCP Elevated LDL- not on a stain -deferred to PCP Plan: Increase Lantus to 28 - 30 units and Novolog 6 at breakfast, 7-12 at meals Follow- up in March Follow-up in 3-4 months BALDO Lal 11/07/2014 I spent a total of 25 minutes in face to face time with this patient, and 15 minutes of that time was spent in counseling and coordination of care as described in This progress note * Aury Jolley - 11/07/2014 1602 EDT Fingerstick blood sample obtained for POCT Hemoglobin A1C performed for this DOS at the order of BALDO Ramírez. documented in this encounter Plan of Treatment Not on file documented as of this encounter Procedures Procedure Name Priority Date/Time Associated Diagnosis Comments POCT HEMOGLOBIN A1C Routine 11/07/2014 1 6:02 EDT Type 1 diabetes mellitus ([facility] ([facility]) documented in this encounter Results * (ABNORMAL) POCT HEMOGLOBIN A1C (11/07/2014 16:02 EDT) Hemoglobin A1c, POC 9.7(A) <=5.7 % POINT OF CARE 11/07/2014 16:0 2 EDT us Lorraine Figueroa NP POINT OF CARE TEST ORDERABL ES Final Result POINT OF CARE documented in this encounter Visit Diagnoses Diagnosis Type 1 diabetes mellitus ([facility])- Primary Type I (juvenile type) diabetes mellitus without mention of complication, not stated as uncontrolled documented in this encounter Care Teams Water Inspector Relationship Specialty Start Date End Date Huseyin Zazueta MD [address] [place] [address] PCP - General 07/16/09 documented as of this encounter
--- OUTSIDE RECORDS SUMMARY | 2024-05-02 15:19 | XMS_ITS | Encounter Summary ---
Author Organization [facility] Address [address] [place] [address] Care Team Providers Care Telecommunications Project Manager Name Role Phone Huseyin Zazueta MD Primary Care Provider [phone] Reason for Visit * Reason Onset Date Comments Diabetes 11/06/2014 Encounter Details Date Type Department Care Team (Late st Contact Info) Description 11/06/2014 Telephone [facility] Endocrinology - [address] [address] Raffaele Nichole, RN CDE Diabetes Social History Tobacco Use Types Packs/Day Years [...] Telephone Encounter - Raffaele Nichole CDE - 11/06/2014 1431 EDT email from pt: Khurram Medellin, I just received a license renewal form from the [facility] and they ask if I have diabetes. I've never been asked this before but obviously will check yes. I am worried that they are going to want verification from a dr that I am safe to operate a vehicle. Do you know anything about their process? My license is void as of 11/29 so I want to be prepared and have a smooth renewal and not fear any suspension. Thank you Hayley Portillo This is my reply: Khurram Hardy, Hope things are going well. This is a common issue for people with diabetes. The best thing is to make an appt with Camelia Figueroa and bring any required paperwork for her to sign. Thanks,raffaele documented in this encounter Plan of Treatment Not on file documented as of this encounter Visit Diagnoses Not on filedocumented in this encounter Care Teams Telecommunications Project Manager Relationship Specialty Start Date End Date Huseyin Zazueta MD [address] [place] [address] PCP - General 07/16/09 documented as of this encounter
--- OUTSIDE RECORDS SUMMARY | 2024-05-02 15:19 | XMS_ITS | Encounter Summary ---
Author Organization [facility] Address [address] [place] [address] Care Team Providers Care Promotions Producer Name Role Phone Huseyin Zazueta MD Primary Care Provider [phone] Reason for Visit * Reason Onset Date Comments Update 09/07/2013 Encounter Details Date Type Department Care Team (Late st Contact Info) Description 09/07/2013 Telephone [facility] Endocrinology - [address] [id number] Carlin Manriquez MD [address] [place] [address], [address] [address] Update Social History Tobacco Use Types Packs/Day Years Used Date Smoking Tobacco: Every Day Cigarettes Smokeless Tobacco: Never Alcohol Use Standard Drinks/Week Comments No 0 (1 standard drink = 0.6 oz pur e alcohol) occasional Comments Yes Sex and Gender Information Value Date Recorded Sex Assigned at Not on file Legal Sex Female 18:29 EST Gender Identity Not on file Sexual Orientation Not on file documented as of this encounter Miscellaneous Notes * Telephone Encounter - Carlin Manriquez - 09/07/2013 1609 EDT Phone call to Hayley: going to labor. She did not answer, but I left a VM message that Dr. Lozano will take good care of her. Of note, she was NOT on an insulin pump prior to , and pre- doses were: Lantus 27 un once daily and Novolog 1:8. * Telephone Encounter - Raine Hilliard - 09/07/2013 0934 EDT Pt states she is being sent to labor and delivery to begin labor. Please call. documented in this encounter Plan of Treatment Not on file documented as of this encounter Visit Diagnoses Not on filedocumented in this encounter Care Teams Promotions Producer Relationship Specialty Start Date End Date Huseyin Zazueta MD [address] [place] [address] PCP - General 07/16/09 documented as of this encounter
--- OUTSIDE RECORDS SUMMARY | 2024-05-02 15:19 | XMS_ITS | Encounter Summary ---
Author Organization [facility] Address [address] [place] [address] Care Team Providers Care Director Of Cloud Services Name Role Phone Huseyin Zazueta MD Primary Care Provider [phone] Reason for Visit * Reason Comments Other Encounter Details Date Type Department Care Team (Late st Contact Info) Description 04/08/2016 [facility] Endocrinology - [facility] [address] [place] [address] Lorraine Figueroa NP [address] [facility] [address] [place] [address] Other Social History Tobacco Use [...] 12/02/2015 8:55 EDT documented in this encounter Ordered Prescriptions Prescription Sig Dispense Quantity Refills Last Filled Start Date End Date LANTUS SOLOSTAR 100 unit/mL (3 mL) injection pen INJECT 30 UNITS INTO SKIN ONCE DAILY 30 mL 3 04/09/2016 01/12/2017 documented in this encounter Plan of Treatment Not on file documented as of this encounter Visit Diagnoses Not on filedocumented in this encounter Discontinued Medications Medication Sig Discontinue Reason Start Date End Da te insulin glargine (LANTUS SOLOSTAR) 100 unit/mL (3 mL) injection pen Inject 30 Units into the skin once daily Reorder 05/27/2015 04/08/2016 documented as of this encounter Care Teams Director Of Cloud Services Relationship Specialty Start Date End Date Huseyin Zazueta MD [address] [place] [address] PCP - General 07/16/09 documented as of this encounter
--- OUTSIDE RECORDS SUMMARY | 2024-05-02 15:19 | XMS_ITS | Encounter Summary ---
Author Organization [facility] Address [address] [place] [address] Care Team Providers Care Factory Laborer Name Role Phone Huseyin Zazueta MD Primary Care Provider [phone] Reason for Visit * Reason Onset Date Comments Medications Refill 12/21/2016 Encounter Details Date Type Department Care Team (Late st Contact Info) Description 12/21/2016 Refill [facility] Endocrinology - [facility] [address] [place] [address] Lorraine Figueroa NP [address] [facility] [address] [place] [address] Medications Refill Social History Tobacco [...] (ONETOUCH ULTRA TEST) test strips 8 Strips daily. E10.65 800 Each 3 12/21/2016 01/12/2017 documented in this encounter Plan of Treatment Not on file documented as of this encounter Visit Diagnoses Not on filedocumented in this encounter Discontinued Medications Medication Sig Discontinue Reason Start Date End Da te blood glucose (ONETOUCH ULTRA TEST) test strips 8 Strips daily E10.65 Reorder 05/27/2015 12/21/2016 documented as of this encounter Care Teams Factory Laborer Relationship Specialty Start Date End Date Huseyin Zazueta MD [address] [place] [address] PCP - General 07/16/09 documented as of this encounter
--- OUTSIDE RECORDS SUMMARY | 2024-05-02 15:19 | XMS_ITS | Encounter Summary ---
Author Organization [facility] Address [address] [place] [address] Care Team Providers Care Otolaryngology Surgeon Name Role Phone Huseyin Zazueta MD Primary Care Provider [phone] Reason for Visit * Reason Onset Date Comments Medications Refill 08/30/2016 Encounter Details Date Type Department Care Team (Late st Contact Info) Description 08/30/2016 Refill [facility] Endocrinology - [facility] [address] [place] [address] Lorraine Figueroa NP 62 [facility] [address] [place] [address] Medications Refill Social History Tobacco [...] Filled Start Date End Date insulin aspart (NOVOLOG FLEXPEN) 100 unit/mL injectable pen Inject 6 units at breakfast, 7-12 units with lunch and dinner. 1:10 carb ratio 30 mL 3 08/30/2016 06/14/2017 documented in this encounter Miscellaneous Notes * Telephone Encounter - Elmer Wheeler - 08/30/2016 1649 EDT Medication(s) Requested: Novolog Flexpen 100 unit.ml injectable pen Disp 30 ml w/ refills Preferred Pharmacy: [facility] Is patient out of medication? Yes Elmer Wheeler 08/30/2016 16:49 documented in this encounter Plan of Treatment Not on file documented as of this encounter Visit Diagnoses Not on filedocumented in this encounter Discontinued Medications Medication Sig Discontinue Reason Start Date End Da te insulin aspart (NOVOLOG FLEXPEN) 100 unit/mL injectable pen Inject 6 units at breakfast, 7-12 units with lunch and dinner. 1:10 carb ratio Reorder 02/19/2015 08/30/2016 documented as of this encounter Care Teams Otolaryngology Surgeon Relationship Specialty Start Date End Date Huseyin Zazueta MD [address] [place] [address] PCP - General 07/16/09 documented as of this encounter
--- OUTSIDE RECORDS SUMMARY | 2024-05-02 15:19 | XMS_ITS | Encounter Summary ---
Author Organization [facility] Address [address] [place] [address] Care Team Providers Care Butadiene Convertor Operator Name Role Phone Huseyin Zazueta MD Primary Care Provider [phone] Reason for Visit * Reason Comments Diabetes Encounter Details Date Type Department Care Team (Latest Contact Info) Description 01/12/2017 10:00 EDT Office Visit [facility] Endocrinology - [facility] [address] [place] [address] Lorraine Figueroa NP [address] [facility] [address] [place] [address] Type 1 diabetes mellitus without complication ([facility]) (Primary Dx) Discharge Disposition: Auto Discharge Social [...] Sign Reading Time Taken Comments Blood Pressure 116/66 01/12/2017 0958 EDT Pulse 80 01/12/2017 0958 EDT Temperature - - Respiratory Rate - - Oxygen Saturation - - Inhaled Oxygen Concentration - - Weight 57.2 kg (126 lb) 01/12/2017 0958 EDT Height 157.5 cm (5' 2.01) 01/12/2017 0958 EDT Body Mass Index 23.04 01/12/2017 0958 EDT documented in this encounter Functional Status [...] 01/12/2017 10:08 EDT documented in this encounter Discharge Diagnoses Diagnosis E10.9 Type 1 diabetes mellitus without complications-E10.9[ICD-10-CM] documented in this encounter Patient Instructions * Patient Instructions* Lorraine Figueroa ANP - 01/12/2017 10:00 EDT Switch Lantus to Basaglar Try to bolus before meals Look into Dexcom continuous glucose sensor. When active or after a low decrease Lantus 5-10 units. F/U in 6 months documented in this encounter Ordered Prescriptions Prescription Sig Dispense Quantity Refills Last Filled Start Date End Date insulin glargine (LANTUS SOLOSTAR) 100 unit/mL (3 mL) injection penIndications:Typ e 1 diabetes mellitus without complication (HCC-CMS) Inject 30 Units into the skin at bedtime. Basalglar 27 mL 3 01/12/2017 7 blood glucose (ONETOUCH VERIO) test stripsIndications: Type 1 diabetes mellitus without complication (HCC-CMS) 4-6 units daily 540 Each 3 01/12/2017 8 blood glucose meter (ONETOUCH VERIO IQ METER)Indications: Type 1 diabetes mellitus without complication (HCC-CMS) Use as directed as needed (glucose monitoring). 1 Each 01/12/2017 9 insulin glargine (LANTUS SOLOSTAR) 100 unit/mL (3 mL) injection penIndications:Typ e 1 diabetes mellitus without complication (HCC-CMS) Inject 30 Units into the skin at bedtime. 27 mL 3 01/12/2017 7 documented in this encounter Discharge Disposition Disposition Code Departure Means Destination Auto Discharge documented in this encounter Progress Notes * Hal Esparza - 01/12/2017 1000 EDT Fingerstick blood sample obtained for POCT Hemoglobin A1C performed for this DOS at the order of BALDO Lal/karlene verdin * Lorraine Figueroa ANP - 01/12/2017 1000 EDT Endocrinology Follow-up Note 12/02/2015 HPI: Carolyn Sosa is a 36 y.o. female seen in follow-up in the adult endocrine clinic for her type 1 diabetes. She was last seen in clinic Results for CAROLYN SOSA ( ) as of 01/12/2017 10:23 Ref. Range 04/04/2014 15:33 11/07/2014 16:02 12/02/2015 08:53 12/02/2015 09:39 01/12/2017 10:06 Hemoglobin A1c, POC Latest Ref Range: 5.7 % 8.1 (A) 9.7 (A) 9.0 (A) Hemoglobin A1C, POC Interfaced Latest Ref Range: <5.7 % 8.5 (H) Ur Alb ug/mg Crea Latest Units: [...] our endocrine team in the high risk [facility] clinic. She was started on an insulin pump & sensor 08/30 by our educator. At 36 weeks she had an emergency ., because of concerns the fetus had congenital defects. She has 4 children athome. She uses a Mirena IUD. Current diabetes regimen includes - Lantus insulin 30 units AM - NovoLog insulin with an insulin to carb ratio of 1:10 usually 3 units AM (has coffee only), and 2at lunch & 7-8 at dinner . She typically boluses within half an hour postprandial dinner and also boluses some between meals for snacks - Correction factor - 1:30 questimates If >200. She cannot afford her Lantus, so will switch toBasiglar. She is off the pump and sensor since cannot afford and the catheters gave her welts at the insertion sites, and dislodged easily. She also had some site infections despite trying different catheters.She also had problems with it pulling out of her thighs where she preferred to wear it. Her weight fluctuates minimally. I believe she continues to smoke. She started at age 14 and has tried, to quit cold turkey, and Chantrix. Her teenage children are pressuring her to, has talked with [employer] in the past and advised to call. She has a glucagon kit at home and her children and boyfriend how to use it. She carries skittles at all times. She reports having some nighttime lows, but review of her records shows having them frequently during the day as well. She tests 3-4 times a day Overnight, 4 out of 5 are low, ranging from 39-408, an overall average of 55 Fasting blood sugars average 164 and range 87-280 Noon average 185. Range 54 - 367 Dinner average 181 and range 51-464 Bedtime average, 299 and range from 60 to over 600 Physical activity: Fairly active, walks likes to outdoors. does recreational exercise with children and boyfriend Previous referral to dietitian/adaptive physical educator: has seen Lacie Nichole and Pam Miranda Associated macro- and microvascular complications: None Risk factors for atherosclerotic disease: None other than T1DM Family history of diabetes: None Patient Active Problem List Diagnosis ??? Type 1 diabetes mellitus ??? Smoker ??? Pure hypercholesterolemia Past Medical History: Diagnosis Date ??? Diabetes mellitus 2008 eye exam annually ??? Kidney stones ??? hematuria & adbominal pain Past Surgical History: Procedure Laterality Date ??? WISDOM TOOTH EXTRACTION Allergies: Levemir [insulin detemir] Social History Social History ??? Marital status: Spouse name: N/A ??? Number of children: N/A ??? Years of education: N/A Social History Main Topics ??? Smoking status: Current Every Day Smoker Packs/day: 0.25 ??? Smokeless tobacco: Never Used ??? Alcohol use No Comment: occasional ??? Drug use: No ??? Sexual activity: Yes Partners: Male control/ protection: Injection Other Topics Concern ??? None Social [...] for acute angle glaucoma. Physical Examination: BP 116/66 Pulse 80 Ht 157.5 cm (62.01) Wt 57.2 kg (126 lb) BMI 23.04 kg/m2 Constitutional: Oriented to person, place, and time. Appears well-developed and well-nourished. Comfortable. No distress. Well-developed woman in no acute distress. Heart lung sounds unremarkable without carotid bruit. Neck supple without thyromegaly. Foot exam wearing sandals. Feet are in good repair. Skin is intact, pink moist without onychomycosis or deformity. They are warm to touch with positive pedal pulses and monofilament sensation intact. Laboratory Data: Lab Results Component Value Date NA 135 (L) 12/02/2015 K 4.3 12/02/2015 CL 101 12/02/2015 CO2 23 (L) 12/02/2015 BUN 8 (L) 12/02/2015 CREATININE 0.61 12/02/2015 SERGLU 242 (H) 12/02/2015 CALCIUM 9.3 12/02/2015 CALCCA 10.3 12/02/2015 Lab Results Component Value Date CHOL 187 12/02/2015 TRIG 170 12/02/2015 HDL 41 12/02/2015 LDLBASE 112 12/02/2015 CHOLHDL 4.6 12/02/2015 Lab Results Component Value Date WBC 12.10 09/07/2013 Lab Results Component Value Date TP 6.0 (L) 12/02/2015 LABALBU 3.4 12/02/2015 TBIL <0.5 12/02/2015 ALT 21 12/02/2015 AST 14 (L) 12/02/2015 ALKPHOS 77 12/02/2015 Is is as there is Lab Results Component Value Date TSH 0.71 12/02/2015 Assessment: Carolyn Sosa is a 36 y.o. female 1. Type 1 diabetes mellitus. 36-year-old female with Type 1 DM poor control. Glycemic control slipped . I suspect stress of working and having 4 children. Insulin pump was stopped due to rashes and infections as well She has had wide fluctuations in her control since.she is having more hypoglycemia that I think she realized. She denies hypoglycemia unawareness. Would benefit from bolusing before meals. I have also recommended adjusting down her basal more after activity or low or if anticipates an active day.she stopped her sensor years ago and could not afford, but there is a chance her insurance policy has changed so have urged to apply again. Would also benefit from being seen more frequently by us but distances a problem. No signs of micro or macrovascular disease. BP stable no recent urine microalbumin found but no past proteinuria No KENDRICK and ARB not indicated -Deferred to PCP Elevated LDL- not on a stain -deferred to PCP Plan: Switch Lantus to Basaglar Try to bolus before meals Look into Dexcom continuous glucose sensor. When active or after a low decrease Lantus 5-10 units. F/U in 6 months Labwork ordered , TSH, BMP, LFTs, lipid panel and urine microalbumin BALDO Lal 01/12/2017 I spent a total of 25 minutes in face to face time with this patient, and 15 minutes of that time was spent in counseling and coordination of care as described in This progress note documented in this encounter Plan of Treatment Not on file documented as of this encounter Procedures Procedure Name Priority Date/Time Associated Diagnosis Comments POCT HEMOGLOBIN A1C, INTERFACED Routine 01/12/2017 10:06 EDT Type 1 diabetes mellitus without complication ([facility]) documented in this encounter Results * (ABNORMAL) POCT HEMOGLOBIN A1C (08/23/2017 8:57 EDT) Hemoglobin A1C, POC Interfaced 8.3(H) <5.7 % 08/23/2017 9:14 EDT [facility] nursing scheduler ID [id number] 08/23/2017 9:14 EDT [facility] Comment:Test performed at En docrinology Blood specimen (specimen) BLOOD SPECIMEN / Unknown 08/23/2017 8:57 EDT 08/23/2017 9:14 EDT us Lorraine Figueroa STRIPPER AND OPAQUER APPRENTICE POINT OF CARE TEST ORDERABL ES Final Result [facility] [address] [place] [address] * TSH (01/12/2017 10:57 EDT) TSH 1.03 0.47 - 4.68 uIU/ml 01/12/2017 17:05 EDT [facility] Comment:New methodology in u se 12/01/16. Blood specimen (specimen) BLOOD SPECIMEN / Unknown 01/12/2017 10:57 EDT 01/12/2017 15:13 EDT us Lorraine Figueroa STRIPPER AND OPAQUER APPRENTICE CHEMISTRY & BLOOD GAS ORDER RASHI Final Result Performing Organization Address City/[facility]/ZIP Co de Phone Number [facility] [address] [place] [address] * LIPID PROFILE (INCLUDES CHOLESTEROL, TRIGLYCERIDES, HDL, LDL) (01/12/2017 10:57 EDT) Cholesterol 189 mg/dl 01/12/2017 16:37 EDT [facility] Comment: Desirable:<200 Borderline High:200-239 High:>ji=439 Triglycerides 93 mg/dl 01/12/2017 16:37 T [facility] Comment: Normal:<150 Borderline High:150-199 High:200-499 Very High:>et=410 HDL 50 mg/dl 01/12/2017 16:37 T [facility] Comment: Low:<40 Normal:40-60 Desirable: >60 LDL, Calculated 120 mg/dl 7 16:37 [facility] Comment: Optimal:<100 Near Optimal:100-129 Borderline High:130-159 High:160-189 Very High:>al=311 Chol/HDL Ratio 3.8 01/12/2017 16:37 [facility] Fasting? Unknown 01/12/2017 15:14 [facility] Non HDL Cholesterol 139 mg/dl 01/12/2017 16:37 [facility] Comment: Desirable:<130 Borderline:130-159 High: 160-189 Very High: >bi=866 Blood specimen (specimen) BLOOD SPECIMEN / Unknown 01/12/2017 10:57 EDT 01/12/2017 15:13 EDT Lorraine Figueroa STRIPPER AND OPAQUER APPRENTICE CHEMISTRY & BLOOD GAS ORDER RASHI Final Result Performing Organization Address City/[facility]/ZIP Co de Phone Number [facility] [address] [place] [address] * (ABNORMAL) BASIC METABOLIC PANEL (01/12/2017 10:57 EDT) Sodium 141 136 - 145 mEq/L 01/12/2017 16:37 [facility] Potassium 4.2 3.5 - 5.0 mEq/L 01/12/2017 16:37 [facility] Chloride 105 96 - 110 mEq/L 01/12/2017 16:37 [facility] CO2 25 22 - 32 mEq/L 01/12/2017 16:37 [facility] BUN 7(L) 10 - 26 mg/dl 01/12/2017 16:37 [facility] Creatinine 0.55 0.52 - 1.04 mg/dl 01/12/2017 16:37 [facility] GFR, Calculated 121 >60 ml/min/1.7 3m2 01/12/2017 16:37 [facility] Comment: eGFR calculated using CKD-EPI equation for non Americans. Multiply eGFR by 1.16 for Americans. Calcium 9.6 8.5 - 10.5 mg/dl 01/12/2017 16:37 [facility] Calculated Calcium 9.4 8.5 - 10.5 mg/dl 01/12/2017 16:37 [facility] Glucose, Serum 131(H) 70 - 100 mg/dl 01/12/2017 16:37 [facility] Fasting? Unknown 01/12/2017 15:14 [facility] Blood specimen (specimen) BLOOD SPECIMEN / Unknown 01/12/2017 10:57 EDT 01/12/2017 15:13 EDT Lorraine Figueroa STRIPPER AND OPAQUER APPRENTICE CHEMISTRY & BLOOD GAS ORDER RASHI Final Result [facility] [address] [place] [address] * ALBUMIN, URINE (01/12/2017 10:57 EDT) Creatinine, Urn [place] 7.7 mg/dl 01/13/2017 9:24 [facility] Ur Albumin mg/dl <0.2 mg/dl 01/13/2017 13:19 [facility] Ur Alb ug/mg Crea Unable to calculate ug/mg Crea result. ug/mg Crea 01/13/2017 13:19 EDT [facility] Comment: Normal: <30 ug/mg creat High albuminuria: 30-300 ug/mg creat Very high albuminuria: >300 ug/mg creat Urine specimen (specimen) URINE / Unknown 01/12/2017 10:57 EDT 01/12/2017 15:14 EDT Lorraine Figueroa STRIPPER AND OPAQUER APPRENTICE CHEMISTRY & BLOOD GAS ORDER RASHI Final Result Performing Organization Address [facility] Co de Phone Number [facility] [address] [place] [address] * (ABNORMAL) POCT HEMOGLOBIN A1C (01/12/2017 10:06 EDT) Hemoglobin A1C, POC Interfaced 8.5(H) <5.7 % 01/12/2017 10:21 EDT [facility] nursing scheduler ID [id number] 01/12/2017 10:21 EDT [facility] Comment:Test performed at En docrinology Blood specimen (specimen) BLOOD SPECIMEN / Unknown 01/12/2017 10:06 EDT 01/12/2017 10:21 EDT Result [facility] Lorraine Figueroa NP POINT OF CARE TEST ORDERABL ES Final Result Performing Organization Address [facility] de Phone Number [facility] [address] [place] [address] documented in this encounter Visit Diagnoses Diagnosis Type 1 diabetes mellitus without complication ([facility])- Primary Type I (juvenile type) diabetes mellitus without mention of complication, not stated as uncontrolled documented in this encounter Discontinued Medications Medication Sig Discontinue Reason Start Date End Da te LANTUS SOLOSTAR 100 unit/mL (3 mL) injection pen INJECT 30 UNITS INTO SKIN ONCE DAILY Insurance does not cover 04/09/2016 01/12/2017 blood glucose (ONETOUCH ULTRA TEST) test strips 8 Strips daily. E10.65 Alternate therapy 12/21/2016 01/12/2017 insulin glargine (LANTUS SOLOSTAR) 100 unit/mL (3 mL) injection penIndications:Type 1 diabetes mellitus without complication ([facility]) Inject 30 Units into the skin at bedtime. Reorder 01/12/2017 01/12/2017 documented as of this encounter Care Teams Butadiene Convertor Operator Relationship Specialty Start Date End Date Huseyin Zazueta MD [address] [place] [address] PCP - General 07/16/09 documented as of this encounter
--- OUTSIDE RECORDS SUMMARY | 2024-05-02 15:19 | XMS_ITS | Encounter Summary ---
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 70 mL 3 09/02/2017 09/05/2017 documented in this encounter Miscellaneous Notes * Telephone Encounter - Mimi Oliva - 09/05/2017 0846 EDT Spoke with patient and scheduled appointment * Telephone Encounter - Celeste Vaz RN CDE - 09/02/2017 1554 EDT Insulin sent to pharmacy. 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 Patient doesn't have all suppliesyet but she still wants to make an appointment .please advise. * Telephone Encounter - Lucien Ahuja - 09/02/2017 1537 EDT Patient is calling stating she has the pens but she is going to need the Vials of novolog. Retail Solar Advisor didn't noticed this on her med list. Please advise. Patient would want this to go to [facility] which is listed above please advise if this is correct. documented in this encounter Plan of Treatment Not on file documented as of this encounter Visit Diagnoses Not on filedocumented in this encounter Care Teams Senior Communications Engineer Relationship Specialty Start Date End Date Huseyin Zazueta MD [address] [facility] [place] [address] PCP - General 07/16/09 documented as of this encounter
--- OUTSIDE RECORDS SUMMARY | 2024-05-02 15:19 | XMS_ITS | Encounter Summary ---
Author Organization [facility] Address [address] [place] [address] Care Team Providers Care Horizontal Boring Mill Set Up Operator Name Role Phone Huseyin Zazueta MD Primary Care Provider [phone] Reason for Visit * Reason Onset Date Comments Medications Refill 09/05/2017 Encounter Details Date Type Department Care Team (Late st Contact Info) Description 09/05/2017 Refill [facility] Endocrinology - [facility] [address] [place] [address] Lorraine Figueroa NP [address] [facility] [address] [place] [address] Medications Refill Social History Tobacco [...] insulin aspart U-100 (NOVOLOG) 100 unit/mL injection 80 Units by subcutaneous - insulin pump route daily for 90 days. 70 mL 3 09/05/2017 8 documented in this encounter Miscellaneous Notes * Telephone Encounter - Christos Schulz RN - 09/05/2017 1321 EDTFrom: Carolyn Portillo To: Lorraine Figueroa ANP Sent: 09/05/2017 13:10 EDT Subject: Medication Renewal Request Original authorizing provider: BALDO Lal would like a refill of the following medications: insulin aspart U-100 (NOVOLOG) 100 unit/mL injection [BALDO Lal] [facility] [place] [place] [facility] [address] [facility] Comment: I need prescriptions through [facility] for financial reasons documented in this encounter Plan of Treatment Not on file documented as of this encounter Visit Diagnoses Not on filedocumented in this encounter Discontinued Medications Medication Sig Discontinue Reason Start Date End Da te insulin aspart U-100 (NOVOLOG) 100 unit/mL injection Inject 80 Units into the skin daily for 90 days. Reorder 09/02/2017 09/05/2017 documented as of this encounter Care Teams Horizontal Boring Mill Set Up Operator Relationship Specialty Start Date End Date Huseyin Zazueta MD [address] [place] [address] PCP - General 07/16/09 documented as of this encounter
--- OUTSIDE RECORDS SUMMARY | 2024-05-02 15:19 | XMS_ITS | Encounter Summary ---
Author Organization [facility] Address [address] [place] [address] Care Team Providers Care Claims Investigator Name Role Phone Huseyin Zazueta MD Primary Care Provider Encounter Details Date Type Department Care Team (Latest Contact Info) Description 01/12/2017 11:00 EDT Procedure visit [facility] Endocrinology - [address] [address] Unknown, Provider, Phlebotomy, [facility] Type 1 diabetes mellitus without complication ([facility]) (Primary Dx) Discharge Disposition: Auto Discharge Social [...] mellitus without complications-E10.9[ICD-10-CM] documented in this encounter Discharge Disposition Disposition Code Departure Means Destination Auto Discharge documented in this encounter Progress Notes * Stacy Bernal - 01/12/2017 1100 EDT Venipuncture preformed for BMP, Lipids prof, TSH, Albumin urine Per orders of Bakari Figueroa Diagnosis of E10.9 250.01 I was supervised by Grace Daigle who was present and immediately available in the office suite. Stacy Bernal 01/12/2017 11:08 documented in this encounter Plan of Treatment Not on file documented as of this encounter Procedures Procedure Name Priority Date/Time Associated Diagnosis Comments URINE [id number] INE RATIO (ACR) Routine 01/12/2017 10:57 EDT Type 1 diabetes mellitus without complication ([facility]) TSH Routine 01/12/2017 10:57 EDT Type 1 diabetes mellitus without complication ([facility]) LIPID PROFILE (INCLUDES CHOLESTEROL, TRIGLYCERIDES, HDL, LDL) Routine 01/12/2017 10:57 EDT Type 1 diabetes mellitus without complication ([facility]) BASIC METABOLIC PANEL (BMP) Routine 01/12/2017 10:57 EDT Type 1 diabetes mellitus without complication ([facility]) documented in this encounter Results * TSH (01/12/2017 10:57 EDT) TSH 1.03 0.47 - 4.68 uIU/ml 01/12/2017 17:05 EDT [facility] Comment:New methodology in u se 12/01/16. Blood specimen (specimen) BLOOD SPECIMEN / Unknown 01/12/2017 10:57 EDT 01/12/2017 15:13 EDT us Lorraine Figueroa NP CHEMISTRY & BLOOD GAS ORDER RASHI Final Result [facility] [address] [place] [address] * LIPID PROFILE (INCLUDES CHOLESTEROL, TRIGLYCERIDES, HDL, LDL) (01/12/2017 10:57 EDT) Cholesterol 189 mg/dl 01/12/2017 16:37 [facility] Comment: Desirable:<200 Borderline High:200-239 High:>dl=091 Triglycerides 93 mg/dl 01/12/2017 16:37 [facility] Comment: Normal:<150 Borderline High:150-199 High:200-499 Very High:>us=644 HDL 50 mg/dl 01/12/2017 16:37 [facility] Comment: Low:<40 Normal:40-60 Desirable: >60 LDL, Calculated 120 mg/dl 7 16:37 [facility] Comment: Optimal:<100 Near Optimal:100-129 Borderline High:130-159 High:160-189 Very High:>ey=908 Chol/HDL Ratio 3.8 01/12/2017 16:37 [facility] Fasting? Unknown 01/12/2017 15:14 [facility] Non HDL Cholesterol 139 mg/dl 01/12/2017 16:37 [facility] Comment: Desirable:<130 Borderline:130-159 High: 160-189 Very High: >cc=884 Blood specimen (specimen) BLOOD SPECIMEN / Unknown 01/12/2017 10:57 EDT 01/12/2017 15:13 EDT Lorraine Figueroa CONSERVATION SCIENCE OFFICER CHEMISTRY & BLOOD GAS ORDER RASHI Final Result [facility] [address] [place] [address] * (ABNORMAL) BASIC METABOLIC PANEL (01/12/2017 10:57 EDT) Sodium 141 136 - 145 mEq/L 01/12/2017 16:37 [facility] Potassium 4.2 3.5 - 5.0 mEq/L 01/12/2017 16:37 [facility] Chloride 105 96 - 110 mEq/L 01/12/2017 16:37 [facility] CO2 25 22 - 32 mEq/L 01/12/2017 16:37 [facility] BUN 7(L) 10 - 26 mg/dl 01/12/2017 16:37 [facility] Creatinine 0.55 0.52 - 1.04 mg/dl 01/12/2017 16:37 [facility] GFR, Calculated 121 >60 ml/min/1.7 3m2 01/12/2017 16:37 [facility] Comment: eGFR calculated using CKD-EPI equation for non Americans. Multiply eGFR by 1.16 for Americans. Calcium 9.6 8.5 - 10.5 mg/dl 01/12/2017 16:37 [facility] Calculated Calcium 9.4 8.5 - 10.5 mg/dl 01/12/2017 16:37 [facility] Glucose, Serum 131(H) 70 - 100 mg/dl 01/12/2017 16:37 [facility] Fasting? Unknown 01/12/2017 15:14 [facility] Blood specimen (specimen) BLOOD SPECIMEN / Unknown 01/12/2017 10:57 EDT 01/12/2017 15:13 EDT us Lorraine Figueroa NP CHEMISTRY & BLOOD GAS ORDER RASHI Final Result [facility] [address] [place] [address] * ALBUMIN, URINE (01/12/2017 10:57 EDT) Creatinine, Urn [place] 7.7 mg/dl 01/13/2017 9:24 [facility] Ur Albumin mg/dl <0.2 mg/dl 01/13/2017 13:19 [facility] Ur Alb ug/mg Crea Unable to calculate ug/mg Crea result. ug/mg Crea 01/13/2017 13:19 [facility] Comment: Normal: <30 ug/mg creat High albuminuria: 30-300 ug/mg creat Very high albuminuria: >300 ug/mg creat Urine specimen (specimen) URINE / Unknown 01/12/2017 10:57 EDT 01/12/2017 15:14 EDT us Lorraine Figueroa CONSERVATION SCIENCE OFFICER CHEMISTRY & BLOOD GAS ORDER RASHI Final Result [facility] [address] [place] [address] documented in this encounter Visit Diagnoses Diagnosis Type 1 diabetes mellitus without complication (HCC-CMS)- Primary Type I (juvenile type) diabetes mellitus without mention of complication, not stated as uncontrolled documented in this encounter Care Teams Claims Investigator Relationship Specialty Start Date End Date Huseyin Zazueta MD [address] [place] [id number] PCP - General 07/16/09 documented as of this encounter
--- OUTSIDE RECORDS SUMMARY | 2024-05-02 15:19 | XMS_ITS | Encounter Summary ---
Author Organization [facility] Address [address] [place] [address] Care Team Providers Care Senior Health Educator Name Role Phone Huseyin Zazueta MD Primary Care Provider [phone] Reason for Visit * Reason Comments Other Encounter Details Date Type Department Care Team (Late st Contact Info) Description 02/18/2015 Refill [facility] Endocrinology - [facility] [address] [place] [address] Lorraine Figueroa NP [address] [facility] [address] [place] [address] Other Social History Tobacco Use [...] dinner. 1:10 carb ratio 30 mL 3 02/19/2015 08/30/2016 documented in this encounter Plan of Treatment Not on file documented as of this encounter Visit Diagnoses Not on filedocumented in this encounter Discontinued Medications Medication Sig Discontinue Reason Start Date End Da te insulin aspart (NOVOLOG) 100 unit/mL injection Up to 80 units daily via insulin pump. Alternate therapy 08/10/2013 02/19/2015 insulin aspart (NOVOLOG FLEXPEN) 100 unit/mL injectable penIndications:Type 1 diabetes mellitus ([facility]) 1/10 carb ratio. Reorder 05/17/2014 02/18/2015 documented as of this encounter Care Teams Senior Health Educator Relationship Specialty Start Date End Date Huseyin Zazueta MD [address] [place] [id number] PCP - General 07/16/09 documented as of this encounter
--- OUTSIDE RECORDS SUMMARY | 2024-05-02 15:19 | XMS_ITS | Encounter Summary ---
Author Organization [facility] Address [address] [place] [address] Care Team Providers Care Natural Gas Engineer Name Role Phone Huseyin Zazueta MD Primary Care Provider [phone] Reason for Visit * Reason Onset Date Comments Medications Refill 05/16/2014 Encounter Details Date Type Department Care Team (Late st Contact Info) Description 05/16/2014 Refill [facility] Endocrinology - [facility] [address] [place] [address] Lorraine Figueroa NP [address] [facility] [address] [place] [address] Medications Refill Social History Tobacco [...] needles as directed daily. 500 Each 3 05/17/2014 6 ketone urine reagent strip (KETOSTIX) Use 1 Strip as directed as needed (hyperglycemia) if BG is greater than 250 (for 2 consecutive readings), if ill, and/or if vomiting.. 50 Each 3 05/17/2014 8 insulin glargine (LANTUS SOLOSTAR) 100 unit/mL (3 mL) injection penIndications:Typ e 1 diabetes mellitus (HCC-CMS) 20 units in the am, 5 unit pm. 30 mL 3 05/17/2014 5 insulin aspart (NOVOLOG FLEXPEN) 100 unit/mL injectable penIndications:Typ e 1 diabetes mellitus (HCC-CMS) /10 carb ratio. 15 mL 3 05/17/2014 5 documented in this encounter Miscellaneous Notes * Telephone Encounter - Sonali Pereyra - 05/16/2014 1035 EST Medication(s) Requested: Keto Stix, Novolog Flex Pen, Lantus Solostar pen, syringes Pharmacy: [facility] Last Refill Date: Last Visit Date: 04/04/14 Next Visit Date: 07/04/2014 Is patient out of medication? YES Sonali Pereyra 05/16/2014 10:35 documented in this encounter Plan of Treatment Not on file documented as of this encounter Visit Diagnoses Diagnosis Type 1 diabetes mellitus ([facility])- Primary Type I (juvenile type) diabetes mellitus without mention of complication, not stated as uncontrolled documented in this encounter Discontinued Medications Medication Sig Discontinue Reason Start Date End Da te insulin aspart (NOVOLOG FLEXPEN) 100 unit/mL injectable penIndications:Type 1 diabetes mellitus (HCC-CMS) Inject into the skin 3 times daily with meals /10 carb ration . Reorder 05/16/2014 insulin glargine (LANTUS SOLOSTAR) 100 unit/mL (3 mL) injection penIndications:Type 1 diabetes mellitus (HCC-CMS) Inject into the skin 20 units in the am, 5 unit pm . Reorder 05/16/2014 documented as of this encounter Care Teams Natural Gas Engineer Relationship Specialty Start Date End Date Huseyin Zazueta MD [address] [place] [address] PCP - General 07/16/09 documented as of this encounter
--- OUTSIDE RECORDS SUMMARY | 2024-05-02 15:19 | XMS_ITS | Encounter Summary ---
Author Organization [facility] Address [address] [place] [address] Care Team Providers Care Cord Splicer Name Role Phone Huseyin Zazueta MD Primary Care Provider [phone] Encounter Details Date Type Department Care Team (Late st Contact Info) Description 11/27/2013 Documentation Visit [facility] Obstetrics & Midwifery - [facility] [address] [place], [place] [address] Beatriz Hebert RN Social History Tobacco Use Types Packs/Day Years [...] on file documented as of this encounter Plan of Treatment Not on file documented as of this encounter Procedures Procedure Name Priority Date/Time Associated Diagnosis Comments GLUCOSE-1HR GESTATIONAL SCREEN Routine 09/21/2013 COMPLETE BLOOD COUNT Routine 09/21/2013 SYPHILIS SEROLOGY Routine 07/24/2013 CHLAMYDIA/N. GONORRHOEAE AMPLIFIED NUCLEIC ACID Routine 07/24/2013 RUBELLA IGG ANTIBODY Routine 07/24/2013 HEPATITIS B SURFACE ANTIGEN Routine 07/24/2013 HIV 1/2 ANTIGEN AND ANTIBODY, 4TH GENERATION Routine 07/24/2013 T4 FREE Routine 07/24/2013 ZZPAP TEST- ORDER ONLY Routine 05/28/2013 documented in this encounter Results * GLUCOSE-1HR GESTATIONAL SCREEN (09/21/2013) Glucose-1hr Gest Scn, External POINT OF CARE Glucose Dose, External POINT OF CARE Glucose-1hr Gest Scn error POINT OF CARE Comment:previously reported as 96 on 11/27/13,(wrong patient error) Blood specimen (specimen) Historical Provider PACKAGES & DNA PROBE ORDE RABLES Edited Result - Final POINT OF CARE * HEMAGRAM (09/21/2013) HCT, External error POINT OF CARE Comment:previously reported as38.8% on 11/27/13(wrong patient error) MCH, External POINT OF CARE MCV, External POINT OF CARE MCHC, External POINT OF CARE Hemoglobin, External POINT OF CARE WBC, External POINT OF CARE RBC, External POINT OF CARE PLT, External 197 POINT OF CARE RDW-CV, External POINT OF CARE Blood specimen (specimen) Historical Provider HEMATOLOGY & PF4 ORDERABL ES Edited Result - Final POINT OF CARE * T4 FREE (07/24/2013) Free T4, External 0.73 0.54 - 1.30 ng/dl EXTERNAL FACILITY Blood specimen (specimen) 07/24/2013 Historical Provider CHEMISTRY & BLOOD GAS ORD ERABLES Final Result EXTERNAL FACILITY * CHLAMYDIA/GC AMPLIFIED (07/24/2013) Result-Chlamydi a Amp Probe, External error EXTERNAL FACILITY Comment:previously reported as Negative on 11/27/13(wrong patient error) Result-GC Amp Probe, External error EXTERNAL FACILITY Comment:previously reported as Negative on 11/27/13(wrong patient error) Specimen Description, External EXTERNAL FACILITY Specimen of unknown material (specimen) 07/24/2013 Historical Provider MICROBIOLOGY - GENERAL OR DERABLES Edited Result - Final EXTERNAL FACILITY * HIV 1/2 ANTIBODY (07/24/2013) Hiv Ab, External POINT OF CARE HIV 1/2 Antibody error POINT OF CARE Comment:previously reported as Negative on 11/27/13 (wrong patient error) Blood specimen (specimen) Result [facility] Historical Provider IMMUNOLOGY AND SEROLOGY O RDERABLES Edited Result - Final Performing Organization Address [facility]/ZIP Co de Phone Number POINT OF CARE * RUBELLA IGG ANTIBODY (07/24/2013) Rubella IgG Ab, External error POINT OF CARE Comment:previously reported as Immune on 11/27/13(wrong patient error) Blood specimen (specimen) Result [facility] Historical Provider CHEMISTRY & BLOOD GAS ORD ERABLES Edited Result - Final Performing Organization Address [facility]/State/ZIP Co de Phone Number POINT OF CARE * HEPATITIS B SURFACE ANTIGEN (07/24/2013) Hepatitis B Surface Ag, External POINT OF CARE Hepatitis B Surface Ag error POINT OF CARE Comment:previously reported as Negative on 11/27/13,(wrong patient error) Blood specimen (specimen) Historical Provider CHEMISTRY & BLOOD GAS ORD ERABLES Edited Result - Final POINT OF CARE * SYPHILIS SEROLOGY (07/24/2013) Syphilis Serology, External POINT OF CARE Syphilis Serology error POINT OF CARE Comment:previously reported as non-reactive on 11/27/13(wrong patient error) Blood specimen (specimen) Historical Provider IMMUNOLOGY AND SEROLOGY O RDERABLES Edited Result - Final POINT OF CARE * PAP TEST- ORDER ONLY (05/28/2013) Other Pap Screen, External POINT OF CARE Comment error POINT OF CARE Comment:previously reported as Ascus +HPV(wrong patient0 Body fluid specimen (specimen) Historical Provider PATHOLOGY ORDERABLES Edit ed Result - Final Performing Organization Address City/[facility]/ZIP Co de Phone Number POINT OF CARE documented in this encounter Visit Diagnoses Not on filedocumented in this encounter Care Teams Cord Splicer Relationship Specialty Start Date End Date Huseyin Zazueta MD [address] [place] [id number] PCP - General 07/16/09 documented as of this encounter
--- OUTSIDE RECORDS SUMMARY | 2024-05-02 15:19 | XMS_ITS | Encounter Summary ---
Author Organization [facility] Address [address] [place] [address] Care Team Providers Care Automatic Trimming Sewer Name Role Phone Huseyin Zazueta MD Primary Care Provider [phone] Reason for Visit * Reason Onset Date Comments Medications Refill 12/31/2014 Encounter Details Date Type Department Care Team (Late st Contact Info) Description 12/31/2014 Refill [facility] Endocrinology - [facility] [address] [place] [address] Lorraine Figueroa NP [address] [facility] [address] [place] [address] Medications Refill Social History Tobacco [...] Last Filled Start Date End Date glucagon (GLUCAGON EMERGENCY KIT, HUMAN,) 1 mg emergency injection kit Use as directed. 4 Kit 6 01/02/2015 02/10/2016 documented in this encounter Miscellaneous Notes * Telephone Encounter - Aura Liu - 12/31/2014 0822 EDT Medication(s) Requested: Glucagon Emergency Kit Pharmacy: [facility] Last Refill Date: 04.27.13 Last Visit Date: 11.07.14 Next Visit Date: 03/18/2015 Is patient out of medication? Yaritza Liu 12/31/2014 8:22 documented in this encounter Plan of Treatment Not on file documented as of this encounter Visit Diagnoses Not on filedocumented in this encounter Discontinued Medications Medication Sig Discontinue Reason Start Date End Da te glucagon (GLUCAGON EMERGENCY) 1 mg emergency injection kit Use as directed. Reorder 04/27/2013 12/31/2014 documented as of this encounter Care Teams Automatic Trimming Sewer Relationship Specialty Start Date End Date Huseyin Zazueta MD [address] [place] [id number] PCP - General 07/16/09 documented as of this encounter
--- OUTSIDE RECORDS SUMMARY | 2024-05-02 15:19 | XMS_ITS | Encounter Summary ---
Author Organization [facility] Address [address] [place] [address] Care Team Providers Care Extrusion Die Coordinator Name Role Phone Huseyin Zazueta MD Primary Care Provider [phone] Encounter Details Date Type Department Care Team (Late st Contact Info) Description 12/02/2015 Phlebotomy Only [facility] [address] [place] [address] Candle Cutter, Outpatient Type 1 diabetes mellitus without complication ([facility]-H[facility]) (Primary Dx) Social History Tobacco Use [...] Name Priority Date/Time Associated Diagnosis Comments URINE IAZJOGW-SR-HYPFNKZ INE RATIO (ACR) Routine 12/02/2015 9:39 EDT Type 1 diabetes mellitus without complication (CMS-HCC) TSH Routine 12/02/2015 9:39 EDT Type 1 diabetes mellitus without complication (CMS-HCC) HEPATIC FUNCTION PANEL (ALB,ALK PHOS,ALT,AST,DBIL, TOT CALVIN,TOT PROT) Routine 12/02/2015 9:39 EDT Type 1 diabetes mellitus without complication (CMS-HCC) LIPID PROFILE (INCLUDES CHOLESTEROL, TRIGLYCERIDES, HDL, LDL) Routine 12/02/2015 9:39 EDT Type 1 diabetes mellitus without complication (CMS-HCC) BASIC METABOLIC PANEL (BMP) Routine 12/02/2015 9:39 EDT Type 1 diabetes mellitus without complication (CMS-HCC) documented in this encounter Results * TSH (12/02/2015 9:39 EDT) TSH 0.71 0.55 - 4.78 uIU/ml 12/02/2015 12:30 EDT [facility] Blood specimen (specimen) BLOOD SPECIMEN / Unknown 12/02/2015 9:39 EDT 12/02/2015 10:44 EDT us Lorraine Figueroa NP CHEMISTRY & BLOOD GAS ORDER RASHI Final Result [facility] [address] [place] [id number] * (ABNORMAL) HEPATIC FUNCTION PANEL (ALB,ALK PHOS,ALT,AST,DBIL,TOT CALVIN,TOT PROT) (12/02/2015 9:39 EDT) Albumin 3.4 3.4 - 4.9 g/dl 12/02/2015 11:27 EDT [facility] Total Protein 6.0(L) 6.3 - 8.2 g/dl 12/02/2015 11:27 EDT [facility] Total Alkaline Phosphatase 77 38 - 126 U/L 12/02/2015 11:27 [facility] ALT 21 <53 U/L 12/02/2015 11:27 [facility] AST 14(L) 15 - 46 U/L 12/02/2015 11:27 [facility] Unconjugated Bilirubin 0.0 0.0 - 1.1 mg/dl 12/02/2015 11:27 [facility] Conjugated Bilirubin 0.0 0.0 - 0.3 mg/dl 12/02/2015 11:27 [facility] Bilirubin, Total <0.5 <1.4 mg/dl 12/02/19 16 11:27 [facility] Blood specimen (specimen) BLOOD SPECIMEN / Unknown 12/02/2015 9:39 EDT 12/02/2015 10:44 EDT us Lorraine Figueroa KNUCKLE BENDER CHEMISTRY & BLOOD GAS ORDER RASHI Final Result [facility] [address] [place] [address] * LIPID PROFILE (INCLUDES CHOLESTEROL, TRIGLYCERIDES, HDL, LDL) (12/02/2015 9:39 EDT) Cholesterol 187 mg/dl 12/02/2015 11:27 [facility] Comment: Desirable:<200 Borderline High:200-239 High:>go=385 Triglycerides 170 mg/dl 12/02/2015 11:27 [facility] Comment: Normal:<150 Borderline High:150-199 High:200-499 Very High:>jk=731 HDL 41 mg/dl 12/02/2015 11:27 [facility] Comment: Low:<40 Normal:40-60 Desirable: >60 LDL, Calculated 112 mg/dl 6 11:27 [facility] Comment: Optimal:<100 Near Optimal:100-129 Borderline High:130-159 High:160-189 Very High:>kq=007 Chol/HDL Ratio 4.6 12/02/2015 11:27 [facility] Fasting? Unknown 12/02/2015 9:39 [facility] Non HDL Cholesterol 146 mg/dl 12/02/2015 11:27 [facility] Comment: Desirable:<130 Borderline:130-159 High: 160-189 Very High: >no=223 Blood specimen (specimen) BLOOD SPECIMEN / Unknown 12/02/2015 9:39 EDT 12/02/2015 10:44 EDT Lorraine Figueroa KNUCKLE BENDER CHEMISTRY & BLOOD GAS ORDER RASHI Final Result [facility] [address] [place] [address] * (ABNORMAL) BASIC METABOLIC PANEL (12/02/2015 9:39 EDT) Sodium 135(L) 136 - 145 mEq/L 12/02/2015 11:27 [facility] Potassium 4.3 3.5 - 5.0 mEq/L 12/02/2015 11:27 [facility] Chloride 101 96 - 110 mEq/L 12/02/2015 11:27 [facility] CO2 23(L) 24 - 32 mEq/L 12/02/2015 11:27 [facility] BUN 8(L) 10 - 26 mg/dl 12/02/2015 11:27 [facility] Creatinine 0.61 0.52 - 1.04 mg/dl 12/02/2015 11:27 [facility] GFR, Calculated 118 >60 ml/min/1.7 3m2 12/02/2015 11:27 [facility] Comment: eGFR calculated using CKD-EPI equation for non Americans. Multiply eGFR by 1.16 for Americans. Calcium 9.3 8.5 - 10.5 mg/dl 12/02/2015 11:27 [facility] Calculated Calcium 10.3 8.5 - 10.5 mg/dl 12/02/2015 11:27 [facility] Glucose, Serum 242(H) 70 - 100 mg/dl 12/02/2015 11:27 [facility] Fasting? Unknown 12/02/2015 9:39 EDT [facility] Blood specimen (specimen) BLOOD SPECIMEN / Unknown 12/02/2015 9:39 EDT 12/02/2015 10:44 EDT Lorraine Figueroa KNUCKLE BENDER CHEMISTRY & BLOOD GAS ORDER RASHI Final Result Performing Organization Address [facility] Co de Phone Number [facility] [address] [place] [address] * ALBUMIN, URINE (12/02/2015 9:39 EDT) Creatinine, Urn [place] 44.4 mg/dl 12/02/2015 12:08 EDT [facility] Ur Albumin mg/dl 0.5 mg/dl 12/02/2015 14:49 EDT [facility] Ur Alb ug/mg Crea 11.3 ug/mg Crea 12/02/2015 14:49 EDT [facility] Comment: Normal: <30 ug/mg creat High albuminuria: 30-300 ug/mg creat Very high albuminuria: >300 ug/mg creat Urine specimen (specimen) URINE / Unknown 12/02/2015 9:39 EDT 12/02/2015 10:41 EDT Lorraine Figueroa KNUCKLE BENDER CHEMISTRY & BLOOD GAS ORDER RASHI Final Result Performing Organization Address [facility] Co de Phone Number [facility] [address] [place] [address] documented in this encounter Visit Diagnoses Diagnosis Type 1 diabetes mellitus without complication ([facility])- Primary Type I (juvenile type) diabetes mellitus without mention of complication, not stated as uncontrolled documented in this encounter Care Teams Extrusion Die Coordinator Relationship Specialty Start Date End Date Huseyin Zazueta MD [address] [place] [address] PCP - General 07/16/09 documented as of this encounter
--- OUTSIDE RECORDS SUMMARY | 2024-05-02 15:19 | XMS_ITS | Encounter Summary ---
Author Organization [facility] Address [address] [place] [address] Care Team Providers Care Auxiliary Equipment Tender Name Role Phone Huseyin Zazueta MD Primary Care Provider [phone] Reason for Visit * Reason Comments Diabetes Encounter Details Date Type Department Care Team (Latest Contact Info) Description 08/23/2017 9:00 EDT Office Visit [facility] Endocrinology - [facility] [address] [place] [address] Lorraine Figueroa NP [address] [facility] [address] [place] [address] Type 1 diabetes mellitus without complication (CMS-HCC) (HCC-CMS) (Primary Dx) Social History Tobacco [...] Sign Reading Time Taken Comments Blood Pressure 101/58 08/23/2017 0859 EDT Pulse 91 08/23/2017 0859 EDT Temperature - - Respiratory Rate - - Oxygen Saturation - - Inhaled Oxygen Concentration - - Weight 58.5 kg (129 lb) 08/23/2017 0859 EDT Height 157.5 cm (5' 2) 08/23/2017 0859 EDT Body Mass Index 23.59 08/23/2017 0859 EDT documented in this encounter Functional Status [...] * Patient Instructions* Lorraine Figueroa ANP - 08/23/2017 9:00 EDT Apply for Omnipod pump and Dexcom sensor. F/U in 5 months No changes in insulin documented in this encounter Progress Notes * Mally Gonzalez - 08/23/2017 0900 EDT Fingerstick blood sample obtained for POCT Hemoglobin A1C performed for this DOS at the order of BALDO Lal/Matilde Lozano MD * Lorraine Figueroa ANP - 08/23/2017 0900 EDT Endocrinology Follow-up Note 12/02/2015 HPI: Carolyn Sosa is a 36 y.o. female seen in follow-up in the adult endocrine clinic for her type 1 diabetes. She was last seen in clinic 01/12/2017. Please see note for details. She previously was on an insulin pump, but developed welts at the catheter sites and they dislodged. She also had some site infections despite trying different catheters, and problems with catheters pulling out of her thighs where she preferred to wear it. However, she has tried the dummy omni-pod set and did not have issues. She also would like to get back on the DEXCOM continuous glucose sensor now she has better insurance coverage. She has been afraid exercise without it for safety reasons. Hemoglobin A1c in May. She recently had an abnormal Pap and cervical biopsy which showed high-grade HSIL. Plan is to monitor her closely for now. She also reports fourth and fifth fingers on left hand in ulnar nerve pattern get numb waking her at night. At her PCPs was 8.55% Results for CAROLYN SOSA ( ) as of 08/23/2017 14:53 Ref. Range 12/02/2015 08:53 12/02/2015 09:39 01/12/2017 10:06 01/12/2017 10:57 08/23/2017 08:57 Hemoglobin A1c, POC Latest Ref Range: 5.7 % 9.0 (A) Hemoglobin A1C, POC Interfaced Latest Ref Range: <5.7 % 8.5 (H) 8.3 (H) Ur Alb ug/mg Crea Latest Units: ug/mg Crea 11.3 Unable to calcula... Ur Albumin mg/dl Latest Units: mg/dl 0.5 <0.2 PMH: ?1. Obstetrics History: : 6 Para: [...] our endocrine team in the high risk M clinic. She was started on an insulin pump & sensor 3/27 by our educator. At 36 weeks she had an emergency ., because of concerns the fetus had congenital defects. She has 4 children athome. She uses a Mirena IUD. Current diabetes regimen includes - Basaglar insulin 30 units AM - NovoLog insulin with an insulin to carb ratio of 1:10 usually 6 in the morning, 7- 12 lunch and dinner. Correction factor - 1:30 questimates If >200. She tries to bolus, 30 minutes pre-meal, since boluses seem to take longer to bring sugars down, then expected. . -Her weight fluctuates minimally. She continues to smoke. She started at age 14 and has tried, to quit cold turkey, and Chantrix. Her teenage children are pressuring her to, has talked with VtAlina Zuletasin the past. She has a glucagon kit at home and her children and boyfriend how to use it. She carries skittles at all times. She reports having some nighttime lows, but review of her records shows having them frequently during the day as well. She gets home late from work. Has dinner at 6 and is in bed at 8 PM , which partly explains why some of her bedtime readings are so high. She tests 3-4 times a day. . They rang 49 at 3 AM to 468 . She has 4 lows until the night and a couple others. Scattered in the day Fasting blood sugars average 204 Noon average 197 Dinner average 151 Bedtime average, 332 Physical activity: Fairly active, walks likes to outdoors. But afraid to go for walk, still she has a sensor since sugars drop so fast. Previous referral to dietitian/tobacco educator: has seen Lacie Nichole and Pam Miranda Associated macro- and microvascular complications: None Risk factors for atherosclerotic disease: None other than T1DM Family history of diabetes: None Patient Active Problem List Diagnosis ??? Type 1 diabetes mellitus ([facility]) ??? Smoker ??? Pure hypercholesterolemia Past Medical History: Diagnosis Date ??? Diabetes mellitus ([facility]) 2008 eye exam annually ??? [...] Packs/day: 0.25 ??? Smokeless tobacco: Current User ??? Alcohol use No Comment: occasional ??? [...] reviewed and are negative. Physical Examination: BP 101/58 Pulse 91 Ht 157.5 cm (62) Wt 58.5 kg (129 lb) BMI 23.59 kg/m2 Constitutional: Oriented to person, place, and time. Appears well-developed and well-nourished. Comfortable. No distress. Well-developed woman in no acute distress. Heart lung sounds unremarkable without carotid bruit. Neck supple without thyromegaly. Laboratory Data: Lab Results Component Value Date NA 141 [...] 1.03 01/12/2017 Assessment: Carolyn Sosa is a 36 y.o. female 1. Type 1 diabetes mellitus. 36-year-old female with Type 1 DM with slightly improved glucose control and overall fewer lows. I suspect stress of working and having 4 children, contributes to her numbers. Medtronic Insulin pump was stopped due to rashes and infections , but would like to try the Omni pod which she seems to tolerate and start the DEXCOM CGM as well. She works very hard to manage her blood sugars, but really needs the pump so can drop basal rate overnight. Would benefit from being seen more frequently by us but distances a problem. No signs of micro or macrovascular disease. BP stable no recent urine microalbumin found but no past proteinuria No KENDRICK and ARB not indicated -Deferred to PCP Elevated LDL- not on a stain -deferred to PCP Plan: Apply for Omnipod pump and Dexcom sensor. F/U in 5 months No changes in insulin BALDO Lal 08/23/2017 I spent a total of 25 minutes in face to face time with this patient, and 15 minutes of that time was spent in counseling and coordination of care as described in This progress note documented in this encounter Plan of Treatment Not on file documented as of this encounter Procedures Procedure Name Priority Date/Time Associated Diagnosis Comments POCT HEMOGLOBIN A1C, INTERFACED Routine 08/23/2017 8:57 EDT Type 1 diabetes mellitus without complication (CMS-HCC) ([facility]) documented in this encounter Results * (ABNORMAL) POCT HEMOGLOBIN A1C (08/23/2017 8:57 EDT) Hemoglobin A1C, POC Interfaced 8.3(H) <5.7 % 08/23/2017 9:14 EDT [facility] ladle repairer ID [id number] 08/23/2017 9:14 EDT [facility] Comment:Test performed at En docrinology Blood specimen (specimen) BLOOD SPECIMEN / Unknown 08/23/2017 8:57 EDT 08/23/2017 9:14 EDT us Lorraine Figueroa NP POINT OF CARE TEST ORDERABL ES Final Result [facility] [address] [place] [address] documented in this encounter Visit Diagnoses Diagnosis Type 1 diabetes mellitus without complication ([facility]-CMS)- Primary Type I (juvenile type) diabetes mellitus without mention of complication, not stated as uncontrolled documented in this encounter Orders Lab Orders Without Results Count Last Ordered D ate First Ordered Date POCT HEMOGLOBIN A1C 1 08/23/2017 documented in this encounter Care Teams Auxiliary Equipment Tender Relationship Specialty Start Date End Date Huseiyn Zazueta MD [address] [place] [address] PCP - General 07/16/09 documented as of this encounter
--- OUTSIDE RECORDS SUMMARY | 2024-05-02 15:19 | XMS_ITS | Encounter Summary ---
Author Organization [facility] Address [address] [place] [address] Care Team Providers Care Channel Executive Name Role Phone Huseyin Zazueta MD Primary Care Provider [phone] Reason for Visit * Reason Comments Other Encounter Details Date Type Department Care Team (Late st Contact Info) Description 02/10/2016 [facility] Endocrinology - [facility] [address] [place] [address] Lorraine Figueroa NP [address] [facility] [address] [place] [address] Other Social History Tobacco Use [...] directed daily. 500 Each 3 02/11/2016 8 GLUCAGON EMERGENCY KIT, HUMAN, 1 mg emergency injection kit use as directed by prescriber 4 Kit 6 02/11/2016 8 documented in this encounter Plan of Treatment Not on file documented as of this encounter Visit Diagnoses Not on filedocumented in this encounter Discontinued Medications Medication Sig Discontinue Reason Start Date End Da te glucagon (GLUCAGON EMERGENCY KIT, HUMAN,) 1 mg emergency injection kit Use as directed. Reorder 01/02/2015 02/10/2016 insulin pen needles 31G x 5/16 (BD INSULIN PEN NEEDLE UF SHORT) Use 5 pen needles as directed daily. Reorder 05/17/2014 02/11/2016 documented as of this encounter Care Teams Channel Executive Relationship Specialty Start Date End Date Huseyin Zazueta MD [address] [place] [id number] PCP - General 07/16/09 documented as of this encounter
--- OUTSIDE RECORDS SUMMARY | 2024-05-02 15:19 | XMS_ITS | Encounter Summary ---
Author Organization [facility] Address [address] [place] [address] Care Team Providers Care Filer Finish Name Role Phone Huseyin Zazueta MD Primary Care Provider [phone] Encounter Details Date Type Department Care Team (Late st Contact Info) Description 09/19/2013 Documentation Visit [facility] Obstetrics & Midwifery - [facility] [address] [place], [place] [address] Beatriz Hebert, RN Social History Tobacco Use Types Packs/Day [...] on file documented as of this encounter Progress Notes * Beatriz Hebert - 09/19/2013 1154 EDT [facility]. Confirmation received. [facility] to [facility] documented in this encounter Plan of Treatment Not on file documented as of this encounter Procedures Procedure Name Priority Date/Time Associated Diagnosis Comments RUBELLA IGG ANTIBODY Routine 11/28/2013 ZZPAP TEST- ORDER ONLY Routine 11/28/2013 ZZPAP TEST- ORDER ONLY Routine 04/05/2012 documented in this encounter Results * RUBELLA IGG ANTIBODY (11/28/2013) Rubella IgG Ab, External Rubella IgG Ab Comment:erronous entry Blood specimen (specimen) Historical Provider CHEMISTRY & BLOOD GAS ORD ERABLES Final Result * PAP TEST- ORDER ONLY (11/28/2013) Other Pap Screen, External error POINT OF CARE Comment:previously reported as [facility],HPV +(wrong patient error) Comment POINT OF CARE Body fluid specimen (specimen) Result [facility] Historical Provider PATHOLOGY ORDERABLES Edit ed Result - Final POINT OF CARE * PAP TEST- ORDER ONLY (04/05/2012) Other Pap Screen, External Comment atypical cells Body fluid specimen (specimen) Result [facility] Historical Provider PATHOLOGY ORDERABLES Thu l Result documented in this encounter Visit Diagnoses Not on filedocumented in this encounter Care Teams Filer Finish Relationship Specialty Start Date End Date Huseyin Zazueta MD [address] [place] [address] PCP - General 07/16/09 documented as of this encounter
--- OUTSIDE RECORDS SUMMARY | 2024-05-02 15:19 | XMS_ITS | Encounter Summary ---
Author Organization [facility] Address [address] [place] [address] Care Team Providers Care Science Faculty Member Name Role Phone Peter Hernández MD Primary Care Provider [phone] Encounter Details Date Type Department Care Team (Late st Contact Info) Description 04/25/2014 Results Only [facility] Laboratory Services - [facility] ([facility]) [address] [place], [place] [address] Peter Hernández MD [address] [place], [place] [address] Social History Tobacco Use Types Packs/Day Years [...] Diagnosis Comments PAP TEST- RESULT ONLY Routine 04/25/2014 0:00 EST documented in this encounter Results * PAP TEST- RESULT ONLY (04/25/2014 0:00 EST) Pathology Report: CYTOPATHOLOGY REPORT Reports generated via electronic interface contain original data; however they are lacking the format of the original report. Caution should be taken when reading/interpreti ng unformatted reports. Name: ? CAROLYN SOSA ? Accession #: ? [id number] : ? 1980 (Age: 33) ??F ?Collect Date: ? 04/25/2014 Location: ? [facility] ? Receive Date: ? 04/29/2014 Provider: ?PETER HERNÁNDEZ MD Copy to: ? Specimen/Source: ?Pap Test, Cervix, ThinPrep Imaging System with manual evaluation Last Menstrual Period: ? Menstrual/Pregnanc y Status: ? Post ? SPECIMEN ADEQUACY ? Satisfactory for Evaluation - transformation zone component present GENERAL CATEGORIZATION ? Negative for Intraepithelial Lesion or Malignancy ? Document reviewed and electronically signed by: ? JOAQUIN Bowen(ASCP) ? Report Date: ??05/07/2014 08:42 End of Report [facility] 04/25/2014 04/29/2014 us Peter Hernández MD PATHOLOGY ORDERABLES Final Resu lt [facility] [address] [place] [address] documented in this encounter Visit Diagnoses Not on filedocumented in this encounter Care Teams Science Faculty Member Relationship Specialty Start Date End Date Peter Hernández MD [address] [place] [address] PCP - General 07/16/09 documented as of this encounter
--- OUTSIDE RECORDS SUMMARY | 2024-05-02 15:20 | XMS_ITS | Encounter Summary ---
Author Organization [facility] Address [address] [place] [address] Care Team Providers Care Transfer Station Operator Name Role Phone Huseyin Zazueta MD Primary Care Provider [phone] Reason for Visit * Reason Onset Date Comments Other 07/09/2013 Cramping Encounter Details Date Type Department Care Team (Late st Contact Info) Description 07/09/2013 Telephone [facility] Obstetrics & Midwifery - [address] [phone] Lyubov Mccallum, RN Other (Cramping) Social History Tobacco Use Types Packs/Day Years Used Date Smoking Tobacco: Every Day Cigarettes Smokeless Tobacco: Never Alcohol Use Standard Drinks/Week Comments Yes 0 (1 standard drink = 0.6 oz pur e alcohol) occasional Comments Yes Sex and Gender Information Value Date Recorded Sex Assigned at Not on file Legal Sex Female 18:29 EST Gender Identity Not on file Sexual Orientation Not on file documented as of this encounter Miscellaneous Notes * Telephone Encounter - Lyubov Mccallum RN - 07/09/2013 1042 EST Phone call from Carolyn, calling today with complaints of constant painful cramping 5/10. Denies leaking, bleeding, change in vaginal discharge, but does endorse pressure that has been there for days and diarrhea. Per Dr. Rollins will schedule her for UAT/NST at 12 and will be seen in clinic directly to follow at 1PM. documented in this encounter Plan of Treatment Not on file documented as of this encounter Visit Diagnoses Not on filedocumented in this encounter Care Teams Transfer Station Operator Relationship Specialty Start Date End Date Huseyin Zazueta MD [address] [place] [address] PCP - General 07/16/09 documented as of this encounter
--- OUTSIDE RECORDS SUMMARY | 2024-05-02 15:20 | XMS_ITS | Encounter Summary ---
Author Organization [facility] Address [address] [place] [address] Care Team Providers Care Inclusion Manager Name Role Phone Huseyin Zazueta MD Primary Care Provider [phone] Reason for Visit * Reason Comments Routine Visit Encounter Details Date Type Department Care Team (Late st Contact Info) Description 07/09/2013 13:30 EST Routine [facility] Obstetrics & Midwifery - [address] [address] Seth Singh MD GA: 28w3d Social History Tobacco Use Types Packs/Day Years [...] Sign Reading Time Taken Comments Blood Pressure 102/68 07/09/2013 1314 EST Pulse - - Temperature - - Respiratory Rate - - Oxygen Saturation - - Inhaled Oxygen Concentration - - Weight 59.9 kg (132 lb) 07/09/2013 1314 EST Height - - Body Mass Index 24.94 06/18/2013 1349 EST documented in this encounter Progress Notes * Celeste Caldwell MD - 07/09/2013 1344 EST [facility] Clinic Note CC: Carolyn Portillo is a 32 y.o. @ 28w3d by 7+6wk US with T1DM and recent threatened PTL. Subjective: Has continued to feel vaginal pressure and abdominal cramping for the past few days. Reports good FM, no LOF, no VB. Denies any urinary symptoms. Does report she has been on Clindamycin for tooth abscess since last . Objective: Vitals: BP: 102/68 mmHg Weight : 59.875 kg (132 lb) Fundal Height (cm): 30 cm Heart Rate: 130 from NST Movement: Present Dilation: 0 Effacement (%): 50 Station: Floating Assessment: Carolyn Portillo is 32 y.o. @ 28w3d by 7+6wk U/S with T1DM and recent threatenedPTL who presents for an antepartum visit. Plan: Supervision of other high-risk (V23.89) PNL UTD. Last growth U/S on L&D final report pending, but AGA. Next growth for 30wks. S/p flu vac. Discussed TDap in future visit. Still feeling pelvic pressure and cramping, SVE today Closed/50/floating/medium consistency. Diabetes mellitus in Continues on Lantus 25U am and Novolog 1:7. Feels like FSG have stabilized at this point, s/p BMZ 06/18/2013. Threatened labor, antepartum Stable SVE today, Closed/50/floating/medium consistency. S/p BMZ . RTC [address] Singh. Celeste Caldwell MD 07/09/2013 13:44 MFMS Attending I saw the pt with the resident. I agree with the findings and plan of management. The pt had no further questions concerning her care plan. SETH SINGH MD documented in this encounter Miscellaneous Notes * Assessment & Plan Note - Celeste Caldwell MD - 07/09/2013 1343 ESTAssociated Problem(s): Threatened labor, antepartum (Resolved 11/04/2013) Stable SVE today, Closed/50/floating/medium consistency. S/p BMZ . * Assessment & Plan Note - Celeste Caldwell MD - 07/09/2013 1342 ESTAssociated Problem(s): Diabetes mellitus in (Resolved 11/04/2013) Continues on Lantus 25U am and Novolog 1:7. Feels like FSG have stabilized at this point, s/p BMZ 06/18/2013. * Assessment & Plan Note - Celeste Caldwell MD - 07/09/2013 1341 ESTAssociated Problem(s): Supervision of other high-risk (Resolved 11/04/2013) PNL UTD. Last growth U/S on L&D final report pending, but AGA. Next growth for 30wks. S/p flu vac. Discussed TDap in future visit. Still feeling pelvic pressure and cramping, SVE today Closed/50/floating/medium consistency. documented in this encounter Plan of Treatment Not on file documented as of this encounter Visit Diagnoses Diagnosis Supervision of other high-risk (V23.89)- Primary Supervision of other high-risk documented in this encounter Historical Medications * This list may reflect changes made after this encounter. clindamycin (CLEOCIN) 150 mg capsule Take 300 mg by mouth every 6 hours. 07/20/2013 added in this encounter Care Teams Inclusion Manager Relationship Specialty Start Date End Date Huseyin Zazueta MD [address] [place] [address] PCP - General 07/16/09 documented as of this encounter
--- OUTSIDE RECORDS SUMMARY | 2024-05-02 15:20 | XMS_ITS | Encounter Summary ---
Author Organization [facility] Address [address] [place] [address] Care Team Providers Care Organisational Psychologist Name Role Phone Huseyin Zazueta MD Primary Care Provider [phone] Reason for Visit * Reason Comments Non-stress Test Encounter Details Date Type Department Care Team (Late st Contact Info) Description 08/17/2013 9:30 EDT Nurse Only [facility] Obstetrics & Midwifery - [address] [phone] Unknown, Provider, Nurse, [facility] Diabetes mellitus in (Primary Dx) Social History Tobacco Use Types [...] as of this encounter Progress Notes * Magdalena Arzate MD - 08/17/2013 1326 EDT NST Report Baseline Heart Rate: 150 Accelerations: present Movement: present Decelerations: absent Contractions: absent Interpretation: reactive Magdalena Arzate MD 08/17/2013 13:26 documented in this encounter Plan of Treatment Not on file documented as of this encounter Visit Diagnoses Diagnosis Diabetes mellitus in - Primary Diabetes mellitus of mother, complicating , childbirth, or the puerperium, unspecified as to episode of care documented in this encounter Care Teams Organisational Psychologist Relationship Specialty Start Date End Date Huseyin Zazueta MD [address] [place] [address] PCP - General 07/16/09 documented as of this encounter
--- OUTSIDE RECORDS SUMMARY | 2024-05-02 15:20 | XMS_ITS | Encounter Summary ---
Author Organization [facility] Address [address] [place] [address] Care Team Providers Care Correctional Counselor/Case Manager Name Role Phone Huseyin Zazueta MD Primary Care Provider [phone] Reason for Visit * Reason Onset Date Comments Pharmacy 08/10/2013 Encounter Details Date Type Department Care Team (Late st Contact Info) Description 08/10/2013 Telephone [facility] Endocrinology - [address] [phone] Carlin Manriquez MD [address] [place] [address], [address] [address] Pharmacy Social History Tobacco Use Types Packs/Day Years [...] Notes * Telephone Encounter - Raffaele Nichole RN - 08/13/2013 0813 EDT email from pharmacy: Khurram Medellin, Unfortunately, my insurance is being difficult and won???t pay [facility] the [facility] tomorrow. Can we reschedule my apt for another day this week? Thank you, Carolyn Portillo This is my reply: Of course, let me know which day works for you. [email or web address] * Telephone Encounter - Nikky Mckinley - 08/10/2013 1638 EST Katherin at [facility] wants to know if the pt needs cartridges or viles for her Novolog. documented in this encounter Plan of Treatment Not on file documented as of this encounter Visit Diagnoses Not on filedocumented in this encounter Care Teams Correctional Counselor/Case Manager Relationship Specialty Start Date End Date Huseyin Zazueta MD [address] [place] [address] PCP - General 07/16/09 documented as of this encounter
--- OUTSIDE RECORDS SUMMARY | 2024-05-02 15:20 | XMS_ITS | Encounter Summary ---
Author Organization [facility] Address [address] [place] [address] Care Team Providers Care After School Program Assistant Name Role Phone Huseyin Zazueta MD Primary Care Provider [phone] Encounter Details Date Type Department Care Team (Late st Contact Info) Description 08/17/2013 Phlebotomy Only [facility] [address] [place] [address] Manager Baby, Outpatient Supervision of other high-risk (V23.89); Type I (juvenile type) diabetes mellitus without mention of complication, uncontrolled Social History Tobacco Use Types Packs/Day Years [...] Procedure Name Priority Date/Time Associated Diagnosis Comments FRUCTOSAMINE Routine 08/17/2013 10:30 EDT Type I (juvenile type) diabetes mellitus without mention of complication, uncontrolled COMPLETE BLOOD COUNT Routine 08/17/2013 10:30 EDT Supervision of other high-risk (V23.89) documented in this encounter Results * FRUCTOSAMINE (08/17/2013 10:30 EDT) Fructosamine, S 238 200 - 285 mcmol/L [facility] Comment: Performed by: [facility] [place], [address], [place] [address], Christmas Tree Grader: Sonali Navarro, Ph.D. Blood specimen (specimen) 08/17/2013 10:30 EDT 08/17/2013 10:51 EDT us Carlin Manriquez MD CHEMISTRY & BLOOD GAS ORDERABL ES Final Result Performing Organization Address [facility] de Phone Number [facility] [address] [place] [address] * (ABNORMAL) HEMAGRAM (08/17/2013 10:30 EDT) Pathologist [facility] WBC 14.52(H) 4.0 - 12.4 K/cmm [facility] RBC 4.08 3.86 - 5.04 M/cmm [facility] Hemoglobin 12.3 11.6 - 15.2 gm/dl [facility] HCT 35.5 34.9 - 44.4 % [facility] MCV 87 81 - 98 fl [facility] MCH 30.2 26.7 - 33.3 pg [facility] MCHC 34.7 32.1 - 35.9 gm/dl [facility] PLT 213 141 - 320 K/cmm [facility] RDW-CV 13.9 11.7 - 14.6 % [facility] Blood specimen (specimen) 08/17/2013 10:30 EDT 08/17/2013 10:53 EDT us Johnna Gregory MD HEMATOLOGY & PF4 ORDERABLES Fi nal Result Performing Organization Address [facility] Co de Phone Number [facility] [address] [place] [address] documented in this encounter Visit Diagnoses Diagnosis Supervision of other high-risk (V23.89) Supervision of other high-risk Type I (juvenile type) diabetes mellitus without mention of complication, uncontrolled documented in this encounter Care Teams After School Program Assistant Relationship Specialty Start Date End Date Huseyin Zazueta MD [address] [place] [address] PCP - General 07/16/09 documented as of this encounter
--- OUTSIDE RECORDS SUMMARY | 2024-05-02 15:20 | XMS_ITS | Encounter Summary ---
Author Organization [facility] Address [address] [place] [address] Care Team Providers Care Nicker Name Role Phone Huseyin Zazueta MD Primary Care Provider [phone] Reason for Visit * Reason Comments Non-stress Test Encounter Details Date Type Department Care Team (Late st Contact Info) Description 08/03/2013 11:00 EST Nurse Only [facility]s [facility] - [facility] [address] [place], [place] [phone] Johnna Gregory MD [address] [place] [phone] Nurse, [facility] Diabetes mellitus in (Primary Dx) Social History [...] as of this encounter Progress Notes * Patrice Agee MD - 08/03/2013 1212 EST NST Report Baseline Heart Rate: 135 Accelerations: present Movement: present Decelerations: absent Contractions: absent Interpretation: reactive PATRICE AGEE MD 08/03/2013 12:12 documented in this encounter Plan of Treatment Not on file documented as of this encounter Visit Diagnoses Diagnosis Diabetes mellitus in - Primary Diabetes mellitus of mother, complicating , childbirth, or the puerperium, unspecified as to episode of care documented in this encounter Care Teams Nicker Relationship Specialty Start Date End Date Huseyin Zazueta MD [address] [place] [address] PCP - General 07/16/09 documented as of this encounter
--- OUTSIDE RECORDS SUMMARY | 2024-05-02 15:20 | XMS_ITS | Encounter Summary ---
Author Organization [facility] Address [address] [place] [address] Care Team Providers Care Manager Printing Name Role Phone Huseyin Zazueta MD Primary Care Provider [phone] Reason for Visit * Reason Comments Diabetes Encounter Details Date Type Department Care Team (Late st Contact Info) Description 08/28/2013 Telephone [facility] Endocrinology - [address] [phone] Raffaele Nichole, RN CDE Diabetes Social History [...] Telephone Encounter - Raffaele Nichole RN - 08/28/2013 1601 EDT email from pt: Tomorrow wont work for me but would. Just let me know what time. This is my reply: All set, at 2pm raffaele Navarro * Telephone Encounter - Raffaele Nichole RN - 08/28/2013 1521 EDT Khurram, sorry to hear that yesterday was rough. Do you want to come in tomorrow afternoon or afternoon. raffaele * Telephone Encounter - Raffaele Nichole RN - 08/28/2013 1506 EDT email to pt: Khurram Hardy, How are things going on the pump? Hope you and your family are doing well. Thanks, raffaele Pt's reply: I had a rough day yesterday with being high, but I think it was because I was sick. I tried using atemp Basil and increased to 120% which seemed to help. Other than that things are good. Today has gone really well. I was going to check in with you because when I was there getting this set up, you wanted me to come back sometime this week...but you didn't have any openings. The lady at the desk said she was going to check with you and get back to me with an appt but that never happened. I can stop by any time to do a pump download if that helps and you want to see what is going on (if you can't fit me in). This is my reply: documented in this encounter Plan of Treatment Not on file documented as of this encounter Visit Diagnoses Not on filedocumented in this encounter Care Teams Manager Printing Relationship Specialty Start Date End Date Huseyin Zazueta MD [address] [place] [address] PCP - General 07/16/09 documented as of this encounter
--- OUTSIDE RECORDS SUMMARY | 2024-05-02 15:20 | XMS_ITS | Encounter Summary ---
Author Organization [facility] Address [address] [place] [address] Care Team Providers Care Internet Marketing Assistant Name Role Phone Huseyin Zazueta MD Primary Care Provider [phone] Reason for Visit * Reason Comments Non-stress Test Encounter Details Date Type Department Care Team (Late st Contact Info) Description 08/21/2013 9:30 EDT Nurse Only [facility] Obstetrics & Midwifery - [address] [phone] Unknown, Provider, Nurse, [facility] Diabetes mellitus in (Primary Dx) Social [...] Progress Notes * Patrice Agee MD - 08/21/2013 1328 EDT NST Report Baseline Heart Rate: 140 Accelerations: present Movement: present Decelerations: absent Contractions: absent Interpretation: reactive PATRICE AGEE MD 08/21/2013 13:28 documented in this encounter Plan of Treatment Not on file documented as of this encounter Visit Diagnoses Diagnosis Diabetes mellitus in - Primary Diabetes mellitus of mother, complicating , childbirth, or the puerperium, unspecified as to episode of care documented in this encounter Care Teams Internet Marketing Assistant Relationship Specialty Start Date End Date Huseyin Zazueta MD [address] [place] [id number] PCP - General 07/16/09 documented as of this encounter
--- OUTSIDE RECORDS SUMMARY | 2024-05-02 15:20 | XMS_ITS | Encounter Summary ---
Author Organization [facility] Address [address] [place] [address] Care Team Providers Care Shift Nurse Manager Name Role Phone Huseyin Zazueta MD Primary Care Provider [phone] Reason for Visit * Reason Comments Diabetes Encounter Details Date Type Department Care Team (Late st Contact Info) Description 08/10/2013 14:00 EST Nurse Only [facility] Endocrinology - [address] [address] Unknown, Provider, Thomas Otto, RN CDE Diabetes mellitus in (Primary Dx) Social History [...] on file documented as of this encounter Patient Instructions * Patient Instructions* Thomas Nichole RN - 08/10/2013 15:07 EST Images from the original note were not included. NEVER BOLUS ON A SENSOR READING- MUST CONFIRM WITH FINGERSTICK Start taking lantus a bit later in the morning. Morning of pump start no lantus Practice using the pump but of course take all shots in the interim Infusion sets for 2 days, must remove if sore Sensor is for 6 days, remove if sore keeo sensor 1 inch at least away from pump call MM with any technical questions, call us with any blood sugar issues Hyperglycemia Algorithm When blood glucose is unexplainably above 250 mg/dl, always check for ketones, and follow this algorithm??? guidelines One of the most appealing aspects [...] have your pump off for 24+ hours: Calculate your total daily basal dose. You will need to replace the basal dose with Lantus insulin injections You can choose to take the Lantus in either in one single daily dose or 2 divided doses. If you are planning to restart the pump before 48 hours we do recommend that you take divided doses You should not restart the pump if it is less than 24 hours after you took a single daily dose of Lantus or if it is less than 12 hours after you took a divided dose of Lantus When you restart the pump you will need to monitor your blood sugars closely since you may still have some active Lantus present You may need to run a temp basal decrease for the first day after restarting your pump You will continue to count carbohydrates and take your rapid acting insulin (Humalog, Novolog or Apidra ) at your current insulin: carb ratio with meals. You will also continue to use your correction factor. To have your pump off for shorter amounts of time: For less than an hour: no adjustment necessary For a full hour: make up as a bolus what you are missing in basal insulin for that hour For two (2) hours: before you disconnect, bolus what you are missing in basal for the first 60 minutes. When you reconnect, bolus what you missed in basal for the second 60 minutes For three (3) hours: as above, using 90 minutes It may be unsafe to use this [...] follow. As always, call the clinic at [phone] with any questions documented in this encounter Ordered Prescriptions Prescription Sig Dispense Quantity Refills Last Filled Start Date End Date blood glucose (CONTOUR NEXT STRIPS) test strips Use 10 Strips as directed daily. 300 Each 11 08/10/2013 4 ketone urine reagent strip (KETOSTIX) Use 1 Strip as directed as needed (hyperglycemia) if BG is greater than 250 (for 2 consecutive readings), if ill, and/or if vomiting.. 50 Each 3 08/10/2013 4 insulin aspart (NOVOLOG) 100 unit/mL injection Up to 80 units daily via insulin pump. 3 Vial 11 08/10/2013 5 documented in this encounter Progress Notes * Thomas Nichole RN - 08/10/2013 1531 EST Current Outpatient Prescriptions Medication Sig Dispense Refill ??? blood glucose (ONE TOUCH ULTRA TEST) test strips 12 Strips by misc (non- drug; combo route) route daily. ICD-9: 648.03 400 Each 11 ??? docusate sodium (COLACE) 100 mg capsule Take 1 Cap by mouth 3 times daily as needed for Constipation. 90 Each 3 ??? glucagon (GLUCAGON EMERGENCY) 1 mg emergency injection kit Use as directed. 4 Kit 6 ??? insulin aspart (NOVOLOG FLEXPEN) 100 unit/mL injectable pen Inject into skin with meals up to 50 units daily. Titrating up during . 45 mL 3 ??? insulin glargine (LANTUS SOLOSTAR) 100 unit/mL (3 mL) injection pen Inject into 30 units daily.Titrate up during . Up to 50 units daily. 45 mL 3 ??? insulin pen needles 31G x 5/16 (BD INSULIN PEN NEEDLE UF SHORT) Use 5 pen needles as directed daily. 500 Each 3 ??? ketone urine reagent strip (KETOSTIX) Use 1 Strip as directed as needed. if blood glucose is greater than 250 (for 2 consecutive readings), if ill, and/or if vomiting. 50 Each 5 ??? lactulose (CHRONULAC) 10 gram/15 mL solution Take 15 mL by mouth daily as needed for Other (constipation). 500 mL 3 ??? lancets (ONE TOUCH DELICA) 33 gauge Misc Use 15 lancet as directed daily. 1300 Each 3 ??? VIT/IRON FUMARATE/FA ( ORAL) Take by mouth. No current facility-administered medications for this visit. Patient Active Problem List Diagnosis ??? Type 1 diabetes mellitus ??? Smoker ??? Pure hypercholesterolemia ??? Supervision of other high-risk (V23.89) ??? Diabetes mellitus in ??? Threatened labor, antepartum ??? uterine contractions, antepartum SALINE START Carolyn Burger Portillo [phone] Referring provider: Dr Manriquez Management Review Fructosamine= 230 Insulin Program: Basal Bolus Pump: Pump model: [id number] with threshold suspend Infusion set: Sure T Insulin type: novolog Meter: contour next link Insulin: Carb Ratio 1:6 Sensitivity Factor: Ratio: 1:50 Target: 90-100 Site assessment: need to avoid abdomen with third trimester Hypoglycemia:h/o lows- starting sensorSensor low= 70, high= 250. Education/ Training Review of pump: Each screen and Pump mechanics/operations. Demonstrate set change: Fill reservoir, Insert reservoir/cartridge, Prime: manual and fixed and Insert. Site care: Site selection, Site rotation, How often to change-will not exceed 72 hours and S&S of infection. Review of general use: Discuss when and how to disconnect and How to wear day/night Comments: Pt demonstrated very good technique and understanding of pump and sensor menu and features. We willnot activate threshold suspend during . Preparation for insulin start: Practice pump functions and daily care as if on pump while taking insulin injections, Change set every 2 days, What to bring to insulin start: meter, pump, supplies, insulin, Prescription needs and Bring insulin to insulin start Time spent with patient: 70 mins ICD-9 Code: 250.01 DIABETES UNCOMPL FOREST-TYPE I Dr Manriquez is supervising physician THOMAS NICHOLE RN 08/10/2013 15:32 documented in this encounter Plan of Treatment Not on file documented as of this encounter Visit Diagnoses Diagnosis Diabetes mellitus in - Primary Diabetes mellitus of mother, complicating , childbirth, or the puerperium, unspecified as to episode of care documented in this encounter Care Teams Shift Nurse Manager Relationship Specialty Start Date End Date Huseyin Zazueta MD [address] [place] [id number] PCP - General 07/16/09 documented as of this encounter
--- OUTSIDE RECORDS SUMMARY | 2024-05-02 15:20 | XMS_ITS | Encounter Summary ---
Author Organization [facility] Address [address] [place] [address] Care Team Providers Care Double Needle Stitcher Name Role Phone Huseyin Zazueta MD Primary Care Provider [phone] Reason for Visit * Reason Comments Non-stress Test Encounter Details Date Type Department Care Team (Late st Contact Info) Description 08/31/2013 10:00 EDT Nurse Only [facility] Obstetrics & Midwifery - [address] [phone] Johnna Gregory MD [address] [place] [phone] Nurse, [facility] Diabetes mellitus in (Primary Dx) Social [...] as of this encounter Progress Notes * Neil Linares MD - 08/31/2013 1044 EDT NST Report Baseline Heart Rate: 140 Accelerations: present Movement: present Decelerations: absent Contractions: absent Interpretation: reactive Neil Linares MD 08/31/2013 10:44 documented in this encounter Plan of Treatment Not on file documented as of this encounter Visit Diagnoses Diagnosis Diabetes mellitus in - Primary Diabetes mellitus of mother, complicating , childbirth, or the puerperium, unspecified as to episode of care documented in this encounter Care Teams Double Needle Stitcher Relationship Specialty Start Date End Date Huseyin Zazueta MD [address] [place] [id number] PCP - General 07/16/09 documented as of this encounter
--- OUTSIDE RECORDS SUMMARY | 2024-05-02 15:20 | XMS_ITS | Encounter Summary ---
Author Organization [facility] Address [address] [place] [address] Care Team Providers Care Kiln Fireman Name Role Phone Huseyin Zazueta MD Primary Care Provider [phone] Reason for Visit * Reason Comments Diabetes Encounter Details Date Type Department Care Team (Latest Contact Info) Description 08/20/2013 10:00 EDT Nurse Only [facility] Endocrinology - [address] [address] Unknown, Provider, Thomas Otto, RN CDE Type I (juvenile type) diabetes mellitus without mention of complication, uncontrolled (Primary Dx) Social History Tobacco Use Types [...] on file documented as of this encounter Discharge Diagnoses Diagnosis 250.01 DIABETES UNCOMPL FOREST-TYPE I[ICD-9-CM] documented in this encounter Patient Instructions * Patient Instructions* Thomas Nichole RN - 08/20/2013 10:43 EDT Images from the original note were not included. Check blood sugars fasting, premeal, 2 hour postmeal, bedtime, midnight and middle of night Call campus dean in 1 hour after leaving clinic Call campus dean mid afternoon the day of pump start Daily contact with campus dean Call clinic [phone] with any urgent issues, day or night Keep schedule as routine as possible- avoid alcohol, strenuous activities, excessive snacking Follow pump calculated doses Call pump company with any technical issues Return to campus dean in 1 3, 8 weeks Hyperglycemia Algorithm When blood glucose is unexplainably above 250 mg/dl, always check for ketones, and follow this algorithm??? TEMPORARY BASAL PROTOCOL TO USE FOR FIRST [...] make adjustments. You will call the clinic [phone] with any problems. You will need to notify the physician of your current pump settings and your current blood sugars. Diabetes Type: 1 and 34 weeks Basal Rates: 00?0.8 units /hr - Carb rates: 1:6 Correction factor: __1:50 Blood sugar target:_80-120 documented in this encounter Progress Notes * Thomas Nichole RN - 08/20/2013 1136 EDT Images from the original note were not included. LMP 12/22/2012 Current Outpatient Prescriptions Medication Sig Dispense Refill ??? blood glucose (CONTOUR NEXT STRIPS) test strips Use 10 Strips as directed daily. 300 Each 11 ??? blood glucose (ONE TOUCH ULTRA TEST) [...] during . 45 mL 3 ??? insulin aspart (NOVOLOG) 100 [...] and/or if vomiting.. 50 Each 3 ??? ketone urine reagent strip [...] Threatened labor, antepartum ??? uterine contractions, antepartum PUMP START/INSULIN Carolyn Burger Lindsey 1980 [phone] Referring provider: Dr Manriquez Management Review Fructosamine: 238, 34 weeks gestation Pump: Pump model: mm 530 g Infusion set:sure T Insulin type: novolog Meter:contour next link Basal Rate: Discussed with MD Rate (units/hr): 0.8 Insulin: Carb Ratio 1:6 Sensitivity Factor: Ratio: 50 Target: 80-120 Site Assessment: 34 weeks , need to avoid gravid abdomen Hypoglycemia: pt denies significant lows and denies nocturnal lows Education/Training Review of pump mechanics/operations: Questions answered Observe patient doing set change: Fill reservoir/cartridge, Insert reservoir/cartridge, Prime: manual and fixed and Insert Review pump management: Targets: 80-120, Hyperglycemia/ketones, Hypoglycemia/glucagon, Pattern management, Insulin:Carb, Sensitivity Factor, Adjusting basal vs bolus, Emergency & back-up supplies and Patient will keep pump settings available Review site care: Site selection, Site rotation, How often to change-will not exceed 72 hours and S&S of infection Documentation and communication: Discuss and review how to use BG log or pump download, Check BG frequency: FBS, ac, 2 hr pc, HS, 12am, 3 am, S&S of hypoglycemia, When to call: daily with nurse educator and 24 hour emergency number Guidelines for 1 week post pump start: Avoid alcohol, snacks, and strenuous activity and Follow pump calculated boluses Glucagon present: pt has supply Last Lantus dose: 08/19 at 08:00 Fasting blood glucose: 98 Time:10:05 FS: 103 Last Bolus dose: 07:00 Pump started at: 10:29 Comments: Pt demonstrated good technique and understanding of pump menu and features. Sensor started. Threshold suspend feature is off. Correct time on pump verified. Correct pump settings verified by pump download Plan: Patient will will call CDE the afternoon of pump start, call the main clinic # nights/weekends for urgent issues, call CDE daily with blood sugar documentation, call pump company with technical issues, return to CDE in1 weeks and return to CDE in 3 weeks Pt left voice message at 12:04 that one hour bg after leaving clinic is 77, about to have lunch andwill call me mid afternoon Time spent with patient: 60 minutes Kps=754.03 I was directly supervised by Dr. Manriquez who was present in the office suite and immediately available. THOMAS NICHOLE RN 08/20/2013 11:47 documented in this encounter Plan of Treatment Not on file documented as of this encounter Visit Diagnoses Diagnosis Type I (juvenile type) diabetes mellitus without mention of complication, uncontrolled- Primary documented in this encounter Care Teams Kiln Fireman Relationship Specialty Start Date End Date Huseyin Zazueta MD [address] [place] [address] PCP - General 07/16/09 documented as of this encounter
--- OUTSIDE RECORDS SUMMARY | 2024-05-02 15:20 | XMS_ITS | Encounter Summary ---
Author Organization [facility] Address [address] [place] [address] Care Team Providers Care Bobcat Operator Name Role Phone Huseyin Zazueta MD Primary Care Provider [phone] Reason for Visit * Reason Comments Routine Visit Encounter Details Date Type Department Care Team (Late st Contact Info) Description 08/17/2013 10:00 EDT Routine [facility] Obstetrics & Midwifery - [address] [phone] Johnna Gregory MD [address] [place] [phone] GA: 34w0d Social History Tobacco Use Types Packs/Day Years [...] Sign Reading Time Taken Comments Blood Pressure 110/70 08/17/2013 0900 EDT Pulse - - Temperature - - Respiratory Rate - - Oxygen Saturation - - Inhaled Oxygen Concentration - - Weight 72.1 kg (159 lb) 08/17/2013 0900 EDT Height - - Body Mass Index 30.04 08/07/2013 1057 EST documented in this encounter Progress Notes * Seth Singh MD - 08/30/2013 1530 EDT MFMS ATTENDING I discussed the patient with the fellow at the time of the visit. I agree with the findings and theplan of care documented in the fellow's note. SETH SINGH MD * Johnna Gregory MD - 08/17/2013 1316 EDT Subjective Carolyn Portillo is a 32 y.o. at 34w0d here for a routine visit. Additional Notes: Doing well, no issues. Movement:Present Contractions / Labor:None Vaginal Bleeding: None Leakage of Fluid: None Objective Vitals: BP: 110/70 mmHg Weight : 72.122 kg (159 lb) Heart Rate: NST and ultrasound today Movement: Present Presentation: Vertex Assessment 32 y.o. at 34w0d with Type 1 DM, transitioning to pump here for a routine visit. Plan Supervision of other high-risk (V23.89) Discussed growth scan today, 27%, cephalic. Discussed IOL @ 39 weeks unless otherwise indicated earlier. GBS positive prior swab. Signed peripartum BTL papers. Diabetes mellitus in Still adjusting to Pump start. Pump still filled with saline, hopes will change to insulin in upcoming few weeks. Managed per Endo. Discussed the signs and symptoms of pre-/term labor and when to call the office. Follow-up in 2 week(s). Discussed with Dr. Singh. Johnna Gregory MD documented in this encounter Miscellaneous Notes * Assessment & Plan Note - Johnna Gregory MD - 08/17/2013 1315 EDTAssociated Problem(s): Diabetes mellitus in (Resolved 11/04/2013) Still adjusting to Pump start. Pump still filled with saline, hopes will change to insulin in upcoming few weeks. Managed per Endo. * Assessment & Plan Note - Johnna Gregory MD - 08/17/2013 1314 EDTAssociated Problem(s): Supervision of other high-risk (Resolved 11/04/2013) Discussed growth scan today, 27%, cephalic. Discussed IOL @ 39 weeks unless otherwise indicated earlier. GBS positive prior swab. Signed peripartum BTL papers. documented in this encounter Plan of Treatment Not on file documented as of this encounter Visit Diagnoses Diagnosis Supervision of other high-risk (V23.89)- Primary Supervision of other high-risk Diabetes mellitus in Diabetes mellitus of mother, complicating , childbirth, or the puerperium, unspecified as to episode of care documented in this encounter Care Teams Bobcat Operator Relationship Specialty Start Date End Date Huseyin Zazueta MD [address] [place] [id number] PCP - General 07/16/09 documented as of this encounter
--- OUTSIDE RECORDS SUMMARY | 2024-05-02 15:20 | XMS_ITS | Encounter Summary ---
Author Organization [facility] Address [address] [place] [address] Care Team Providers Care Coal Cutter Name Role Phone Huseyin Zazueta MD Primary Care Provider [phone] Reason for Visit * Reason Comments Follow-up Encounter Details Date Type Department Care Team (Latest Contact Info) Description 07/30/2013 13:45 EST Office Visit [facility] Endocrinology - [address] [phone] Unknown, Provider, , High Risk Supervision of other high-risk (V23.89) (Primary Dx); Type I (juvenile type) diabetes mellitus without mention of complication, not stated as uncontrolled; Abnormal maternal glucose tolerance, antepartum Social History Tobacco Use Types Packs/Day Years [...] Sign Reading Time Taken Comments Blood Pressure 106/68 07/30/2013 1357 EST Pulse - - Temperature - - Respiratory Rate - - Oxygen Saturation - - Inhaled Oxygen Concentration - - Weight 62.1 kg (137 lb) 07/30/2013 1357 EST Height - - Body Mass Index 25.89 06/18/2013 1349 EST documented in this encounter Patient Instructions * Patient Instructions* Harish Waddell MD - 07/30/2013 14:39 EST 1. Increase Lantus 32un daily (morning injections) 2. Continue carb ratio of 1:7 but give ahead of time by 15-30 minutes with breakfast and lunch, change carb ratio to 1:6 with supper . Continue correction factor of 1:30 3. Check FSBG 10 times daily: fasting, 1-hour or 2-hours postprandial, and anytime there is persistent hyperglycemia or hypoglycemia 4. Glucose targets: (a) Fastin or less (b) 1-hour postprandial: 140 or less (c) 2-hours postprandial: 120 or less 5. Call/fax glucose readings on a weekly basis. To Lacie Donaldson 6.Follow up in 2-4 weeks documented in this encounter Progress Notes * Harish Waddell MD - 07/30/2013 1347 EST Endocrinology Follow-up Note Date of Consultation: 07/31/2013 Reason for Consultation: Management of antepartum type 1 diabetes mellitus Problem List: 1. Antepartum type 1 diabetes mellitus 2. Intrauterine (current gestational age: 31 weeks 3 days ) 3. LMP 12/22/2012 HPI: Carolyn Portillo is a 32 y.o. female seen in follow-up in the [facility]Endo joint clinic for management of Type 1 DM during . Hayley has had diabetes since 07/2009, so just around 4 years. She has 3children at home and she is . She was admitted when she was 25 weeks to hospital with DKA and received steroids for lung maturity. She had significant spikes in her glucoses around thattime, but they have since come back to normal. Her current diabetes regimen includes - Lantus insulin 30 units each morning - NovoLog insulin with an insulin to carb ratio of 1:7 - correction - 1:30 She continues to work for [employer] and commutes a long distance back and forth between home and work, which is difficult. She continues to work with her ex- on legal ramifications of having her move her children further away from him. She is checking glucoses 10-12 times daily and has reasonable numbers recently. Some mild hypoglycemia but 100% awareness and none severe: Fasting- 68- 215, with most numbers >100 Post breakfast- 77-141 Pre lunch- 69-126 Post lunch- 121-132 Pre supper - 51-89, post supper- 151-302 At bed time- 117-187 She is having significant fasting hyperglycemia as well as post prandial hyperglycemia after supper. C/O occasional lows (3about 5 times in 2 weeks 49-54) - random - If they occur at night she wakes up and eats a snack. Component Latest Ref Rng 03/16/2013 03/30/2013 04/27/2013 05/25/2013 Hemoglobin A1C 7.5 7.0 Est Avg Glucose 169 154 POCT Hgb A1C Fructosamine, S 200-285 mcmol/L 258 249 241 241 Component Latest Ref Rng 06/07/2013 Hemoglobin A1C Est Avg Glucose POCT Hgb A1C Fructosamine, S 200-285 mcmol/L 252 1. Obstetrics History: : 6 Para: 3 (1 spont ab, 1 elective ab) # Outcome Date GA Weight Sex Delivery 1 Live 1998 40 weeks 6 lb 10 oz female 2 Elect ab 1999 3 Live 2002 40 weeks 6 lb 7 oz female 4 spont ab 2003 5 Live 2004 40 weeks 6 lb 6 oz male 6 current LMP: 12/22/2012 Current gestational age: 31 weeks 3 days by US Estimated delivery date: 09/28/2013 Pre- weight: 123 lb Current weight: 137 lb 2. Diabetes History: When diagnosed: 07/2009 Previous treatment: always on insulin Current treatment: Lantus 25 un qam, Novolog 1:7 with meals Treatment adherence: Excellent, especially recently Home glucose monitoring: See HPI Hypoglycemia/availability of glucagon emergency kit at home: has glucagon and boyfriend and oldest daughter know how to use it, has never had to use it HbA1c trend: Lab Results Component Value Date HGBA1C 7.2 07/09/2013 HGBA1C 7.0 04/27/2013 HGBA1C 7.5 03/16/2013 HGBA1C 8.4 01/26/2013 HGBA1C 8.6 11/22/2012 Fructosamine trend: See above Weight: 137 lb now Eating habits: Mostly 3 meals daily, some snacks, nausea has resolved Physical activity: Fairly active, walks, bikes, does recreational exercise with children and boyfriend Previous referral to dietitian/hospice educator: Sees Lacie Nichole and Pam Miranda Psychosocial, cultural, or economic factors that might influence management of diabetes: Doing much better recently, has hectic life and long commute, but does a great job right now Previous hospitalization for hyperglycemic crisis: 06/19/2013 seen in ED and admitted briefly with hyperglycemia and concern for pre-term labor - - received betamethasone for lung maturity Associated macro- and microvascular complications: None Risk factors for atherosclerotic disease: None other than T1DM Family history of diabetes: None Patient Active Problem List Diagnosis ??? Type 1 diabetes mellitus ??? Smoker ??? Pure hypercholesterolemia ??? Supervision of other high-risk (V23.89) ??? Diabetes mellitus in ??? Threatened labor, antepartum ??? uterine contractions, antepartum Past Medical History Diagnosis Date ??? Kidney stones ??? hematuria & adbominal pain ??? Diabetes mellitus 07/2009 eye exam annually No past surgical history on file. Current Outpatient Prescriptions Medication Sig Dispense Refill [...] Smoking status: Current Every Day Smoker -- 1.00 packs/day ??? Smokeless tobacco: Never Used ??? Alcohol Use: Yes Comment: occasional ??? Drug Use: ??? Sexually Active: Yes -- Male partner(s) Control/ Protection: Injection Other Topics Concern ??? [...] neck pain. Eyes: Negative for double vision. Respiratory: Negative for shortness of breath and wheezing. Cardiovascular: Negative for chest pain, palpitations and leg swelling. Gastrointestinal: Negative for nausea, vomiting, abdominal pain, diarrhea and constipation. Skin: Negative for rash. Neurological: Negative for tremors, focal weakness and headaches. All other systems reviewed and are negative. Physical Examination: BP 106/68 Wt 62.143 kg (137 lb) BMI 25.9 kg/m2 LMP 12/22/2012 Constitutional: Oriented to person, place, and time. [...] Psychiatric: Normal mood and affect. Laboratory Data: Lab Results Component Value Date HGBA1C 7.2 07/09/2013 HGBA1C 7.0 04/27/2013 HGBA1C 7.5 03/16/2013 HGBA1C 8.4 01/26/2013 HGBA1C 8.6 11/22/2012 Lab Results Component Value Date NA 134* 06/20/2013 K 3.6 06/20/2013 CL 104 06/20/2013 CO2 20* 06/20/2013 BUN 4* 06/20/2013 CREATININE 0.38* 06/20/2013 SERGLU 215* 11/22/2012 CALCIUM 9.0 06/20/2013 CALCCA 10.0 06/20/2013 Lab Results Component Value Date CHOL 198 11/22/2012 TRIG 66 11/22/2012 HDL 59 11/22/2012 LDLBASE 126 11/22/2012 CHOLHDL 3.4 11/22/2012 Lab Results Component Value Date WBC 13.61* 06/18/2013 Lab Results Component Value Date TP 7.1 11/22/2012 LABALBU 4.1 11/22/2012 TBIL <0.5 11/22/2012 ALT 22 03/02/2013 AST 15 03/02/2013 ALKPHOS 56 11/22/2012 Lab Results Component Value Date TSH 0.96 02/20/2010 TSH 0.57 07/17/2009 Assessment: Carolyn Portillo is a 32 y.o. female 1. Antepartum type 1 diabetes mellitus. Current intrauterine (31weeks 3 days): Hayley is an incredibly nice 32-year-old female with Type 1 DM who is . She is having significant fasting hyperglycemia as well as post prandial hyperglycemia after supper. I will increase her Lantus insulin to 32 units AND Novolog- carb ratio of 1:7 with breakfast and lunch and change to 1:6 with supper - SSI Novolog: continue 1:30 C/O occasional lows (3about 5 times in 2 weeks 49-54) - random - If they occur at night she wakes up and eats a snack She denies hypoglycemia unawareness. She spikes after meals and is convinced thatgiving the meal time injections 15- 30 minutes before the meals help. She will send us glucoses weekly. We will see her here every 4 weeks or sooner as needed. Patient education: - We discussed importance of optimal glycemic control to prevent both maternal and complications. Maternal complications include excessive weight gain, pre-eclampsia and increased need for C-sections. Long-term maternal complications include retinopathy, nephropathy, neuropathy and CAD. complications include macrosomia, traumatic vaginal delivery and hypoglycemia/respiratorydistress syndrome. Pharmacotherapy: - Lantus: Increase to 32 un daily to avoid hypoglycemia - Novolog: continue carb ratio of 1:7 with breakfast and lunch and change to 1:6 with supper - SSI Novolog: continue 1:30 Labs: - Fructosamine and A1c today. Home glucose monitoring: - Check FSBG 10 times daily: fasting, 1-hour or 2-hours postprandial plus any time there is persistent hyper- or hypoglycemia - Glucose targets are as follows: (a) Fastin or less (b) 1-hour postprandial: 140 or less (c) 2-hours postprandial: 120 or less - Patient was advised to call/fax glucose readings on a weekly basis to allow adjustments in insulin doses. Lifestyle modification: - Patient has met with a dietitian to discuss medical nutrition therapy and regularly communicates with her (Pam Miranda RD, CDE). We briefly discussed observing a 3 meal - 3 snack regimen during , which allows for reasonable carbohydrate restriction while minimizing risk of starvation ketosis. - Patient was also advised to start a simple exercise program such as walking to help improve glycemic control. Mscellaneous screening: - Dilated eye examination: done in 11/2012 Plan: 1. Increase Lantus 32un daily (morning injections) 2. Continue carb ratio of 1:7 but give ahead of time by 15-30 minutes with breakfast and lunch, change carb ratio to 1:6 with supper . Continue correction factor of 1:30 3. Check FSBG 10 times daily: fasting, 1-hour or 2-hours postprandial, and anytime there is persistent hyperglycemia or hypoglycemia 4. Glucose targets: (a) Fastin or less (b) 1-hour postprandial: 140 or less (c) 2-hours postprandial: 120 or less 5. Call/fax glucose readings on a weekly basis. To Lacie Donaldson 6.Follow up in 2-4 weeks. Patient is seen and examined with Dr Daigle. Jeb Daigle MD 07/31/2013 Attestation statement: I saw and examined the patient with the resident/fellow. I agree with the findings and plan of care documented in the resident's/fellow's note. documented in this encounter Plan of Treatment Not on file documented as of this encounter Visit Diagnoses Diagnosis Supervision of other high-risk (V23.89)- Primary Supervision of other high-risk Type I (juvenile type) diabetes mellitus without mention of complication, not stated as uncontrolled Abnormal maternal glucose tolerance, antepartum documented in this encounter Care Teams Coal Cutter Relationship Specialty Start Date End Date Huseyin Zazueta MD [address] [place] [address] PCP - General 07/16/09 documented as of this encounter
--- OUTSIDE RECORDS SUMMARY | 2024-05-02 15:20 | XMS_ITS | Encounter Summary ---
Author Organization [facility] Address [address] [place] [address] Care Team Providers Care Sr. Vendor Management Associate Name Role Phone Huseyin Zazueta MD Primary Care Provider [phone] Reason for Visit * Reason Onset Date Comments Diabetes 08/24/2013 Encounter Details Date Type Department Care Team (Late st Contact Info) Description 08/24/[address] [facility] Endocrinology - [address] [address] Raffaele Nichole, RN CDE Diabetes Social History [...] Telephone Encounter - Raffaele Nichole RN - 08/24/2013 0938 EDT email from pt: Last night went much better. I got down to 60 but I don't think thats too low. Hayley This is my reply: Great. Let me know how you are doing. raffaele Navarro documented in this encounter Plan of Treatment Not on file documented as of this encounter Visit Diagnoses Not on filedocumented in this encounter Care Teams Sr. Vendor Management Associate Relationship Specialty Start Date End Date Huseyin Zazueta MD [address] [place] [id number] PCP - General 07/16/09 documented as of this encounter
--- OUTSIDE RECORDS SUMMARY | 2024-05-02 15:20 | XMS_ITS | Encounter Summary ---
Author Organization [facility] Address [address] [place] [address] Care Team Providers Care Frame Builder Name Role Phone Huseyin Zazueta MD Primary Care Provider [phone] Reason for Visit * Reason Comments Routine Visit Low back pain, le ft leg pain, low abd cramps. Encounter Details Date Type Department Care Team (Late st Contact Info) Description 08/03/2013 9:40 EST Routine [facility] Obstetrics & Midwifery - [facility] [address] [place], [place] [phone] Johnna Gregory MD [address] [place] [phone] GA: 32w0d Social History Tobacco Use Types Packs/Day Years [...] Sign Reading Time Taken Comments Blood Pressure 112/70 08/03/2013 0945 EST Pulse - - Temperature - - Respiratory Rate - - Oxygen Saturation - - Inhaled Oxygen Concentration - - Weight 61.7 kg (136 lb) 08/03/2013 0945 EST Height - - Body Mass Index 25.7 06/18/2013 1349 EST documented in this encounter Progress Notes * Yodit Henderson MD - 08/03/2013 1302 EST MFMS Attending I discussed the pt with at the time of the visit. I agree with impression and plan as above. Yodit Henderson MD * Johnna Gregory MD - 08/03/2013 1032 EST Subjective Carolyn Portillo is a 32 y.o. at 32w0d here for a routine visit. Additional Notes: ? Leaking since Tuesday, not sure if discharge or urine. Wearing liner. Movement:Present Contractions / Labor:None Vaginal Bleeding: None Leakage of Fluid: None Objective Vitals: BP: 112/70 mmHg Weight : 61.689 kg (136 lb) Heart Rate: NST and U/S today Movement: Present Assessment 32 y.o. at 32w0d with Type 1 DM here for a routine visit. Plan Supervision of other high-risk (V23.89) Pt concerned re leaking and for ? SROM. SSE negative, neg fern, neg pool. SVE deferrred. Has MELIA today and NST. Recently Breech, good candidate for version if EFW remains normal, multip, post placenta. RH +. Diabetes mellitus in NSTs and fluid checks. Growth q 4 weeks ordered. Saw Endo on 07/31/13, additional modifications made. Current regimen: Lantus 32 U QAM, Novolog 1:7 (breakfast/lunch), 1:6 (dinner). Correction: 1:30. Discussed the signs and symptoms of pre-/term labor and when to call the office. Follow-up in 2 week(s). Discussed with Dr. Henderson. Johnna Gregory MD documented in this encounter Miscellaneous Notes * Assessment & Plan Note - Johnna Gregory MD - 08/03/2013 1029 ESTAssociated Problem(s): Diabetes mellitus in (Resolved 11/04/2013) NSTs and fluid checks. Growth q 4 weeks ordered. Saw Endo on 07/31/13, additional modifications made. Current regimen: Lantus 32 U QAM, Novolog 1:7 (breakfast/lunch), 1:6 (dinner). Correction: 1:30. * Assessment & Plan Note - Johnna Gregory MD - 08/03/2013 1027 ESTAssociated Problem(s): Supervision of other high-risk (Resolved 11/04/2013) Pt concerned re leaking and for ? SROM. SSE negative, neg fern, neg pool. SVE deferrred. Has MELIA today and NST. Recently Breech, good candidate for version if EFW remains normal, multip, post placenta. RH +. documented in this encounter Plan of Treatment Not on file documented as of this encounter Results * (ABNORMAL) HEMAGRAM (08/17/2013 10:30 EDT) WBC 14.52(H) 4.0 - 12.4 K/cmm [facility] RBC 4.08 3.86 - 5.04 M/cmm [facility] Hemoglobin 12.3 11.6 - 15.2 gm/dl [facility] HCT 35.5 34.9 - 44.4 % [facility] MCV 87 81 - 98 fl [facility] MCH 30.2 26.7 - 33.3 pg [facility] MCHC 34.7 32.1 - 35.9 gm/dl [facility] PLT 213 141 - 320 K/cmm [facility] RDW-CV 13.9 11.7 - 14.6 % [facility] Blood specimen (specimen) 08/17/2013 10:30 EDT 08/17/2013 10:53 EDT us Johnna Gregory MD HEMATOLOGY & PF4 ORDERABLES Fi nal Result [facility] [address] [place] [address] documented in this encounter Visit Diagnoses Diagnosis Supervision of other high-risk (V23.89)- Primary Supervision of other high-risk documented in this encounter Care Teams Frame Builder Relationship Specialty Start Date End Date Huseyin Zazueta MD [address] [place] [address] PCP - General 07/16/09 documented as of this encounter
--- OUTSIDE RECORDS SUMMARY | 2024-05-02 15:20 | XMS_ITS | Encounter Summary ---
Author Organization [facility] Address [address] [place] [address] Care Team Providers Care Surface Logging Systems Logger Name Role Phone Huseyin Zazueta MD Primary Care Provider [phone] Reason for Visit * Reason Comments Non-stress Test Encounter Details Date Type Department Care Team (Late st Contact Info) Description 08/24/2013 10:00 EDT Nurse Only [facility] Obstetrics & Midwifery - [facility] [address] [place], [place] [phone] Johnna Gregory MD [address] [place] [phone] Nurse, [facility] Diabetes mellitus in (Primary Dx); Diabetes mellitus, antepartum Social History Tobacco Use Types Packs/Day [...] Progress Notes * Neil Linares MD - 08/24/2013 1155 EDT NST Report Baseline Heart Rate: 140 Accelerations: present Movement: present Decelerations: absent Contractions: absent Interpretation: reactive Neil Linares MD 08/24/2013 11:55 documented in this encounter Plan of Treatment Not on file documented as of this encounter Visit Diagnoses Diagnosis Diabetes mellitus in - Primary Diabetes mellitus of mother, complicating , childbirth, or the puerperium, unspecified as to episode of care Diabetes mellitus, antepartum(648.03) Diabetes mellitus, antepartum documented in this encounter Care Teams Surface Logging Systems Logger Relationship Specialty Start Date End Date Huseyin Zazueta MD [address] [place] [id number] PCP - General 07/16/09 documented as of this encounter
--- OUTSIDE RECORDS SUMMARY | 2024-05-02 15:20 | XMS_ITS | Encounter Summary ---
Author Organization [facility] Address [address] [place] [address] Care Team Providers Care Dust Collector Treater Name Role Phone Huseyin Zazueta MD Primary Care Provider [phone] Reason for Referral * [facility] AGENT (Routine/Next Available) - Closed Specialty Diagnoses / Procedures Referred By Neva zacarias Referred To Contact Diagnoses Diabetes in Procedures SENIOR CARE LIMITED EXAM Johnna Gregory MD Phone: tel: fax: Referral ID Status Reason Start Date Expiration Date Visits Re quested Visits Authorized [id number] Closed 07/20/2013 1 1 Reason for Visit * Reason Comments Routine Visit Encounter Details Date Type Department Care Team (Late st Contact Info) Description 07/20/2013 9:00 EST Routine [facility] Obstetrics & Midwifery - [facility] [address] [place] [address], [place] [id number] Johnna Gregory MD [address] [place] [id number] GA: 30w0d Social History Tobacco Use Types Packs/Day Years [...] Sign Reading Time Taken Comments Blood Pressure 110/68 07/20/2013 0859 EST Pulse - - Temperature - - Respiratory Rate - - Oxygen Saturation - - Inhaled Oxygen Concentration - - Weight 60.8 kg (134 lb) 07/20/2013 0859 EST Height - - Body Mass Index 25.32 06/18/2013 1349 EST documented in this encounter Progress Notes * Candace Salas MD - 07/20/2013 1046 EST MFM ATTG Pt discussed and reviewed -- 32 yo @ 30w1d with T1DM/threatened PTL who presents for routine PNV. Pt states adequate glycemic control. No s/sx PTL --> exam unchanged. I agree with plan as described above. Candace Salas MD * Johnna Gregory MD - 07/20/2013 1008 EST Subjective Carolyn Portillo is a 32 y.o. at 30w0d here for a routine visit. Additional Notes: Doing well, no current concerns. Having a root canal today after appt. Movement:Present Contractions / Labor:None Vaginal Bleeding: None Leakage of Fluid: None Objective Vitals: BP: 110/68 mmHg Weight : 60.782 kg (134 lb) Heart Rate: Ultrasound today Movement: Present Presentation: Breech Dilation: 0 Effacement (%): 50 Station: -2 Assessment 32 y.o. at 30w0d with Type 1 DM (JOHNNY +) and prior threatened PTL, stable here for a routineprenatal visit. Plan Supervision of other high-risk (V23.89) Desires peripartum BTL, papers signed 07/20/13. Growth scan today: 15%, MELIA 12 BREECH. Diabetes mellitus in NSTs/fluid checks ordered for 32 weeks. Patient aware. Growth q 4 weeks. Today, EFW 15%, MELIA 12. Has still been working with [employer] to get a pump set up. Following with Endo. Threatened labor, antepartum SVE today closed/50 (multiparous). Discussed the signs and symptoms of pre-/term labor and when to call the office. Follow-up in 2 week(s). D/W Dr Salas. Johnna Gregory MD documented in this encounter Miscellaneous Notes * Assessment & Plan Note - Johnna Gregory MD - 07/20/2013 1008 ESTAssociated Problem(s): Threatened labor, antepartum (Resolved 11/04/2013) SVE today closed/50 (multiparous). * Assessment & Plan Note - Johnna Gregory MD - 07/20/2013 1007 ESTAssociated Problem(s): Diabetes mellitus in (Resolved 11/04/2013) NSTs/fluid checks ordered for 32 weeks. Patient aware. Growth q 4 weeks. Today, EFW 15%, MELIA 12. Has still been working with [employer] to get a pump set up. Following with Endo. * Assessment & Plan Note - Johnna Gregory MD - 07/20/2013 0943 ESTAssociated Problem(s): Supervision of other high-risk (Resolved 11/04/2013) Desires peripartum BTL, papers signed 07/20/13. Growth scan today: 15%, MELIA 12 BREECH. documented in this encounter Plan of Treatment Not on file documented as of this encounter Procedures Procedure Name Priority Date/Time Associated Diagnosis Comments SENIOR CARE LIMITED EXAM Routine 08/03/2013 12:1 8 EST Diabetes in documented in this encounter Results * SENIOR CARE LIMITED EXAM (08/03/2013 12:18 EST) Anatomical Region Laterality Modality Other 08/03/2013 12:1 8 EST 08/03/2013 12:24 EST Narrative 08/03/2013 12:24 EST Indication: Maternal disease: Diabetes, pregestational type 1. History: Age: 32 years. : 6 Para: 3. Previous pregnancies: Children born at term: 3. Abortions: 2. Living children: 3. LMP known. Current : Pre- data: Weight 118 lbs. Height 5 ft 1 ins. BMI 22.1. Medical History: Diabetes Mellitus: Start 2007, Classification: Diabetic Type 1, Class B. Dating: LMP: 12/22/2012 EDC: 09/28/2013 GA by LMP: 32w0d Best Overall Assessment: 02/15/2013 EDC: 09/28/2013 Assessed GA: 32w0d The Best Overall Assessment is based on the LMP. General Evaluation: heart activity: Present. heart rate: 144 bpm. Presentation: cephalic, Spine left. movement: present. Amniotic Fluid: Normal. MELIA ??17.2 cm. Maximal vertical pocket 4.9 cm. Placenta: Posterior. Placenta Grade: Grade 1. Structure: normal. Anatomy Scan: Pitts gestation. Summary of Ultrasound Findings: Transabdominal US. U/S machine: [employer] e8. U/S view: good. Wellbeing Assessment: Amniotic fluid: Normal. MELIA: 17.2 cm. MVP: 4.9 cm. Q1: 4.9 cm. Q2: 4.1 cm. Q3: 4.0 cm. Q4: 4.2 cm. Non Stress Test: reactive. heart rate: 135 bpm. Report Summary: Impression: [id number] Limited obstetrical scan A limited study was performed for amniotic fluid assessment. This is a pitts gestation. body and extremity movement was noted. The amniotic fluid was normal. Recommendations: Recommend follow-up with semi-weekly NSTs, weekly fluid checks and growth every 4 weeks. This follow-up has been scheduled. Growth Overview: Date GA BPD [mm] HC [mm] AC [mm] FL [mm] HUM [mm] EFW GP 02/01/2013 5 + 6 ... ... ... ... ... ... ... 02/15/2013 7 + 6 ... ... ... ... ... ... ... 04/06/2013 15 + 0 ... ... ... ... ... ... ... 05/11/2013 20 + 0 50.7 93rd 175.5 45th 155.6 69th 32.1 42nd 31.2 65th 351g , 0 lbs 12 ozs n/a% 06/18/2013 25 + 3 66.8 87th 240.9 54th 207.8 38th 43.6 10th 40.5 22nd 773g , 1 lbs 11 ozs 13th%% 07/20/2013 30 + 0 77.1 68th 279.4 31st 257.6 42nd 52.7 <5th 47.9 10th 1396g , 3 lbs 1 ozs 15th%% 08/03/2013 32 + 0 ... ... ... ... ... ... ... Procedure Note 08/03/2013 Indication: Maternal disease: Diabetes, pregestational type 1. History: Age: 32 years. : 6 Para: 3. Previous pregnancies: Children born at term: 3. Abortions: 2. Living children: 3. LMP known. Current : Pre- data: Weight 118 lbs. Height 5 ft 1 ins. BMI 22.1. Medical History: Diabetes Mellitus: Start 2007, Classification: Diabetic Type 1, Class B. Dating: LMP: 12/22/2012 EDC: 09/28/2013 GA by LMP: 32w0d Best Overall Assessment: 02/15/2013 EDC: 09/28/2013 Assessed GA: 32w0d The Best Overall Assessment is based on the LMP. General Evaluation: heart activity: Present. heart rate: 144 bpm. Presentation: cephalic, Spine left. movement: present. Amniotic Fluid: Normal. MELIA 17.2 cm. Maximal vertical pocket 4.9 cm. Placenta: Posterior. Placenta Grade: Grade 1. Structure: normal. Anatomy Scan: Pitts gestation. Summary of Ultrasound Findings: Transabdominal US. U/S machine: [employer] e8. U/S view: good. Wellbeing Assessment: Amniotic fluid: Normal. MELIA: 17.2 cm. MVP: 4.9 cm. Q1: 4.9 cm. Q2: 4.1 cm. Q3: 4.0 cm. Q4: 4.2 cm. Non Stress Test: reactive. heart rate: 135 bpm. Report Summary: Impression: [id number] Limited obstetrical scan A limited study was performed for amniotic fluid assessment. This is a pitts gestation. body and extremity movement was noted. The amniotic fluid was normal. Recommendations: Recommend follow-up with semi-weekly NSTs, weekly fluid checks and growth every 4 weeks. This follow-up has been scheduled. Growth Overview: Date GA BPD [mm] HC [mm] AC [mm] FL [mm] HUM [mm] EFW GP 02/01/2013 5 + 6 ... ... ... ... ... ... ... 02/15/2013 7 + 6 ... ... ... ... ... ... ... 04/06/2013 15 + 0 ... ... ... ... ... ... ... 05/11/2013 20 + 0 50.7 93rd 175.5 45th 155.6 69th 32.1 42nd 31.2 65th 351g , 0 lbs 12 ozs n/a% 06/18/2013 25 + 3 66.8 87th 240.9 54th 207.8 38th 43.6 10th 40.5 22nd 773g , 1 lbs 11 ozs 13th%% 07/20/2013 30 + 0 77.1 68th 279.4 31st 257.6 42nd 52.7 <5th 47.9 10th 1396g , 3 lbs 1 ozs 15th%% 08/03/2013 32 + 0 ... ... ... ... ... ... ... us Johnna Gregory MD IMG US SENIOR CARE ORDERABLES Final Re sult documented in this encounter Visit Diagnoses Diagnosis Diabetes in - Primary Diabetes mellitus of mother, complicating , childbirth, or the puerperium, unspecified as to episode of care documented in this encounter Discontinued Medications Medication Sig Discontinue Reason Start Date End Da te clindamycin (CLEOCIN) 150 mg capsule Take 300 mg by mouth every 6 hours. 07/20/2013 documented as of this encounter Care Teams Dust Collector Treater Relationship Specialty Start Date End Date Huseyin Zazueta MD [address] [place] [address] PCP - General 07/16/09 documented as of this encounter
--- OUTSIDE RECORDS SUMMARY | 2024-05-02 15:20 | XMS_ITS | Encounter Summary ---
Author Organization [facility] Address [address] [place] [address] Care Team Providers Care Business Education Instructor Name Role Phone Huseyin Zazueta MD Primary Care Provider [phone] Encounter Details Date Type Department Care Team (Latest Contact Info) Description 09/04/2013 9:13 EDT - 09/04/2013 10:49 EDT Hospital Encounter [facility] [address] [place] [address] Unknown, Provider, Veronica Sweet MD Discharge Disposition: Auto Discharge Social History Tobacco [...] as of this encounter Discharge Diagnoses Diagnosis 250.03 DIABETES UNCOMPL FOREST-UNCONTRLLED[ICD-9-CM] documented in this encounter Medications at Time of Discharge acetaminophen (TYLENOL) 325 mg tablet Take 1-2 Tabs by mouth every 4 hours. 09/07/2013 ibuprofen (MOTRIN) 400 mg tablet Take 1 Tab by mouth every 4 hours as needed for Pain. 09/09/2013 blood glucose (CONTOUR NEXT STRIPS) test strips Use 10 Strips as directed daily. 300 Each 11 08/10/2013 4 blood glucose (ONE TOUCH ULTRA TEST) test strips 12 Strips by misc (non-drug; combo route) route daily. ICD-9: 648.03 400 Each 11 01/26/2013 4 calcium carbonate (TUMS) 200 mg calcium (500 mg) tablet, chewable Take 1-2 Tabs by mouth every 2 hours as needed for Other (heartburn). 09/07/2013 6 docusate sodium (COLACE) 100 mg capsule Take 1 Cap by mouth 2 times daily as needed for Constipation. 09/07/2013 6 docusate sodium (COLACE) 100 mg capsule Take 1 Cap by mouth 3 times daily as needed for Constipation. 90 Each 3 05/25/2013 4 glucagon (GLUCAGON EMERGENCY) 1 mg emergency injection kit Use as directed. 4 Kit 6 04/27/2013 5 insulin aspart (NOVOLOG FLEXPEN) 100 unit/mL injectable pen Inject into skin with meals up to 50 units daily. Titrating up during . 45 mL 3 02/27/2013 4 insulin aspart (NOVOLOG) 100 unit/mL injection Up to 80 units daily via insulin pump. 3 Vial 11 08/10/2013 5 insulin glargine (LANTUS SOLOSTAR) 100 unit/mL (3 mL) injection pen Inject into 30 units daily. Titrate up during . Up to 50 units daily. 45 mL 3 02/27/2013 4 insulin pen needles 31G x 5/16 (BD INSULIN PEN NEEDLE UF SHORT) Use 5 pen needles as directed daily. 500 Each 3 02/27/2013 4 ketone urine reagent strip (KETOSTIX)Indicati ons:Type I (juvenile type) diabetes mellitus without mention of complication, not stated as uncontrolled Use 1 Strip as directed as needed. if blood glucose is greater than 250 (for 2 consecutive readings), if ill, and/or if vomiting. 50 Each 5 05/09/2012 4 lactulose (CHRONULAC) 10 gram/15 mL solution Take 15 mL by mouth daily as needed for Other (constipation). 500 mL 3 05/25/2013 4 lancets (ONE TOUCH DELICA) 33 gauge Misc Use 15 lancet as directed daily. 1300 Each 3 02/27/2013 4 VIT/IRON FUMARATE/FA ( ORAL) Take by mouth. 12/01 6 documented as of this encounter Discharge Disposition Disposition Code Departure Means Destination Auto Discharge Home documented in this encounter Plan of Treatment Not on file documented as of this encounter Visit Diagnoses Not on filedocumented in this encounter Care Teams Business Education Instructor Relationship Specialty Start Date End Date Huseyin Zazueta MD [address] [place] [address] PCP - General 07/16/09 documented as of this encounter
--- OUTSIDE RECORDS SUMMARY | 2024-05-02 15:20 | XMS_ITS | Encounter Summary ---
Author Organization [facility] Address [address] [place] [address] Care Team Providers Care Medical Staff Services Manager Name Role Phone Huseyin Zazueta MD Primary Care Provider [phone] Encounter Details Date Type Department Care Team (Latest Contact Info) Description 07/09/2013 13:41 EST - 07/09/2013 23:59 EST Hospital Encounter [facility] [address] [place] [address] Unknown, Provider, Carlin Woody MD [address] [place] [address], [address] [address] Discharge Disposition: Auto Discharge Social History Tobacco [...] as of this encounter Discharge Diagnoses Diagnosis 648.03 DIABETES-ANTEPARTUM[ICD-9-CM] 250.01 DIABETES UNCOMPL FOREST-TYPE I[ICD-9-CM] 648.83 ABN GLUCOSE-ANTEPARTUM[ICD-9-CM] 250.03 DIABETES UNCOMPL FOREST-UNCONTRLLED[ICD-9-CM] documented in this encounter Medications at Time of Discharge blood glucose (ONE TOUCH ULTRA TEST) test strips 12 Strips by misc (non-drug; combo route) route daily. ICD-9: 648.03 400 Each 11 01/26/2013 4 clindamycin (CLEOCIN) 150 mg capsule Take 300 mg by mouth every 6 hours. 4 docusate sodium (COLACE) 100 mg capsule Take [...] . 45 mL 3 02/27/2013 4 insulin glargine (LANTUS SOLOSTAR) 100 unit/mL (3 [...] 4 lancets (ONE TOUCH DELICA) 33 gauge [facility] Use 15 lancet as directed daily. 1300 Each 3 02/27/2013 4 VIT/IRON FUMARATE/FA ( ORAL) Take by mouth. 12/01 6 documented as of this encounter Discharge Disposition Disposition Code Departure Means Destination Auto Discharge Home documented in this encounter Plan of Treatment Not on file documented as of this encounter Procedures Procedure Name Priority Date/Time Associated Diagnosis Comments [facility] FOLLOW-UP 09/07/2013 8:57 EDT [facility] LIMITED EXAM 08/31/2013 11:0 1 EDT [facility] LIMITED EXAM 08/24/2013 12:2 9 EDT [facility] LIMITED EXAM 08/10/2013 11:5 7 EST documented in this encounter Results * [facility] FOLLOW-UP (09/07/2013 8:57 EDT) Anatomical Region Laterality Modality Other 09/07/2013 8:57 EDT 09/07/2013 13:09 EDT Narrative 09/07/2013 13:09 EDT Indication: Maternal disease: Diabetes, pregestational type 1. History: Age: 32 years. : 6 Para: 3. Previous pregnancies: Children born at term: 3. Abortions: 2. Living children: 3. LMP known. Current : Pre- data: Weight 118 lbs. Height 5 ft 1 ins. BMI 22.1. Medical History: Diabetes Mellitus: Start 2007, Classification: Diabetic Type 1, Class B. Dating: LMP: 12/22/2012 EDC: 09/28/2013 GA by LMP: 37w0d Current Scan on: 09/07/2013 EDC: 10/13/2013 GA by current scan: 34w6d Best Overall Assessment: 02/15/2013 EDC: 09/28/2013 Assessed GA: 37w0d The calculation of the gestational age by current scan was based on BPD, HC, AC, FL and HUM. The Best Overall Assessment is based on the LMP. General Evaluation: heart activity: Present. heart rate: 150 bpm. Presentation: cephalic, Spine left. movement: present. Amniotic Fluid: Normal. MELIA ??18.4 cm. Maximal vertical pocket 5.7 cm. Cord: 3 Vessels. Placenta: Posterior. Placenta Grade: Grade 1. Structure: normal. Anatomy Scan: Pitts gestation. Biometry: BPD 90.4 mm 55th% 36w4d (35w4d to 37w5d) HC 321.3 mm 11th% 36w2d (33w4d to 39w0d) AC 330.3 mm 62nd% 37w0d (36w0d to 38w0d) FL 63.4 mm <5th% 32w5d (29w6d to 35w5d) OFD 110.9 mm 22nd% 34w1d HUM 55.0 mm <5th% 32w0d VENTRp 5.0 mm n/a HC/AC Ratio 0.973 ??27th% FL/AC Ratio 0.192 ??n/a BPD/FL Ratio 1.426 ??84th% HC/FL Ratio 5.068 ??92nd% BPD/OFD Ratio 0.815 ??47th% EFW (lbs/oz) 6 lbs 2 ozs EFW (g) 2771 g ??30th% Anatomy: Head: head shape appears normal. Brain: Visualized and normal appearance: brain parenchyma, cerebral ventricles, choroid plexus, Cisterna Magna, midline falx, cerebellum, posterior fossa, vermis, cavum septi pellucidi. Vein of Florentin aneurysm vs arteriovenous malformation. Gastrointestinal Tract: Stomach appears normal. Kidneys / Adrenal Glands: Bilateral kidneys appear normal. Bladder: bladder appears normal in size and shape. Summary of Ultrasound Findings: Transabdominal US. U/S machine: [email or web address] e8. U/S view: good. Wellbeing Assessment: Amniotic fluid: Normal. MELIA: 18.4 cm. MVP: 5.7 cm. Q1: 5.7 cm. Q2: 5.2 cm. Q3: 3.0 cm. Q4: 4.5 cm. Doppler: Doppler: Umbilical Artery: PS 29.9 cm/s ED 12.94 cm/s EDF Absent S/D ratio 2.43 ?? RI 1.41 ?? PI 3.58 ?? TAMX 13.61 cm/s Right Middle Cerebral Artery: PS 99.8 cm/s ED 33.05 cm/s EDF: Forward flow S/D ratio 3.02 RI 0.67 ?? PI 1.10 ?? TAMX 62.02 cm/s Right MCA PI/Umbilical A. PI: ??0.307 Summary of Doppler Findings: Impression: Abnormal Doppler study. Report Summary: Impression: [id number] Follow-up obstetrical ultrasound This is a pitts gestation. biometry is consistent with prior dating. An elongated vascular structure, with flow, is noted at the level of the lateral ventricles and superior. ??The brain parenchyma otherwise appears normal. 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 Except where noted above, the anatomy was not reviewed in detail as this is a follow-up study and the anatomy was previously assessed. Normal fluid and movement are noted. 23658 Middle cerebral artery Doppler study Doppler waveforms of the middle cerebral artery are abnormal. The peak systolic velocity is abnormal at 99.8 cm/s (1.77 MoM). 06966 Umbilical artery Doppler study Doppler waveforms of the umbilical artery are abnormal with absent end diastolic flow. Recommendations: The patient is sent to Labor and Delivery. Growth Overview: Date GA BPD [mm] HC [...] ... ... ... ... ... ... ... 08/10/2013 33 + 0 ... ... ... ... ... ... ... 08/17/2013 34 + 0 87.6 84th 314.3 45th 303.2 62nd 59.0 <5th 53.2 6th 2210g , 4 lbs 14 ozs 27th%% 08/24/2013 35 + 0 ... ... ... ... ... ... ... 08/31/2013 36 + 0 ... ... ... ... ... ... ... 09/05/2013 36 + 5 ... ... ... ... ... ... ... 09/07/2013 37 + 0 90.4 55th 321.3 11th 330.3 62nd 63.4 <5th 55.0 <5th 2771g , 6 lbs 2 ozs 30th%% Procedure Note 09/07/2013 Indication: Maternal disease: Diabetes, pregestational type 1. History: Age: 32 years. : 6 Para: 3. Previous pregnancies: Children born at term: 3. Abortions: 2. Living children: 3. LMP known. Current : Pre- data: Weight 118 lbs. Height 5 ft 1 ins. BMI 22.1. Medical History: Diabetes Mellitus: Start 2007, Classification: Diabetic Type 1, Class B. Dating: LMP: 12/22/2012 EDC: 09/28/2013 GA by LMP: 37w0d Current Scan on: 09/07/2013 EDC: 10/13/2013 GA by current scan: 34w6d Best Overall Assessment: 02/15/2013 EDC: 09/28/2013 Assessed GA: 37w0d The calculation of the gestational age by current scan was based on BPD, HC, AC, FL and HUM. The Best Overall Assessment is based on the LMP. General Evaluation: heart activity: Present. heart rate: 150 bpm. Presentation: cephalic, Spine left. movement: present. Amniotic Fluid: Normal. MELIA 18.4 cm. Maximal vertical pocket 5.7 cm. Cord: 3 Vessels. Placenta: Posterior. Placenta Grade: Grade 1. Structure: normal. Anatomy Scan: Pitts gestation. Biometry: BPD 90.4 mm 55th% 36w4d (35w4d to 37w5d) HC 321.3 mm 11th% 36w2d (33w4d to 39w0d) AC 330.3 mm 62nd% 37w0d (36w0d to 38w0d) FL 63.4 mm <5th% 32w5d (29w6d to 35w5d) OFD 110.9 mm 22nd% 34w1d HUM 55.0 mm <5th% 32w0d VENTRp 5.0 mm n/a HC/AC Ratio 0.973 27th% FL/AC Ratio 0.192 n/a BPD/FL Ratio 1.426 84th% HC/FL Ratio 5.068 92nd% BPD/OFD Ratio 0.815 47th% EFW (lbs/oz) 6 lbs 2 ozs EFW (g) 2771 g 30th% Anatomy: Head: head shape appears normal. Brain: Visualized and normal appearance: brain parenchyma, cerebral ventricles, choroid plexus, Cisterna Magna, midline falx, cerebellum, posterior fossa, vermis, cavum septi pellucidi. Vein of Florentin aneurysm vs arteriovenous malformation. Gastrointestinal Tract: Stomach appears normal. Kidneys / Adrenal Glands: Bilateral kidneys appear normal. Bladder: bladder appears normal in size and shape. Summary of Ultrasound Findings: Transabdominal US. U/S machine: [email or web address] e8. U/S view: good. Wellbeing Assessment: Amniotic fluid: Normal. MELIA: 18.4 cm. MVP: 5.7 cm. Q1: 5.7 cm. Q2: 5.2 cm. Q3: 3.0 cm. Q4: 4.5 cm. Doppler: Doppler: Umbilical Artery: PS 29.9 cm/s ED 12.94 cm/s EDF Absent S/D ratio 2.43 RI 1.41 PI 3.58 TAMX 13.61 cm/s Right Middle Cerebral Artery: PS 99.8 cm/s ED 33.05 cm/s EDF: Forward flow S/D ratio 3.02 RI 0.67 PI 1.10 TAMX 62.02 cm/s Right MCA PI/Umbilical A. PI: 0.307 Summary of Doppler Findings: Impression: Abnormal Doppler study. Report Summary: Impression: [id number] Follow-up obstetrical ultrasound This is a ptits gestation. biometry is consistent with prior dating. An elongated vascular structure, with flow, is noted at the level of the lateral ventricles and superior. The brain parenchyma otherwise appears normal. 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 Except where noted above, the anatomy was not reviewed in detail as this is a follow-up study and the anatomy was previously assessed. Normal fluid and movement are noted. [id number] Middle cerebral artery Doppler study Doppler waveforms of the middle cerebral artery are abnormal. The peak systolic velocity is abnormal at 99.8 cm/s (1.77 MoM). 68599 Umbilical artery Doppler study Doppler waveforms of the umbilical artery are abnormal with absent end diastolic flow. Recommendations: The patient is sent to Labor and Delivery. Growth Overview: Date GA BPD [mm] HC [...] ... ... ... ... ... ... ... 08/10/2013 33 + 0 ... ... ... ... ... ... ... 08/17/2013 34 + 0 87.6 84th 314.3 45th 303.2 62nd 59.0 <5th 53.2 6th 2210g , 4 lbs 14 ozs 27th%% 08/24/2013 35 + 0 ... ... ... ... ... ... ... 08/31/2013 36 + 0 ... ... ... ... ... ... ... 09/05/2013 36 + 5 ... ... ... ... ... ... ... 09/07/2013 37 + 0 90.4 55th 321.3 11th 330.3 62nd 63.4 <5th 55.0 <5th 2771g , 6 lbs 2 ozs 30th%% us Johnna Gregory MD IMG US [facility] ORDERABLES Final Re sult * [facility] LIMITED EXAM (08/31/2013 11:01 EDT) Anatomical Region Laterality Modality Other 08/31/2013 11:0 1 EDT 08/31/2013 11:08 EDT Narrative 08/31/2013 11:08 EDT Indication: Maternal disease: Diabetes, pregestational type 1. History: Age: 32 years. : 6 Para: 3. Previous pregnancies: Children born at term: 3. Abortions: 2. Living children: 3. LMP known. Current : Pre- data: Weight 118 lbs. Height 5 ft 1 ins. BMI 22.1. Medical History: Diabetes Mellitus: Start 2007, Classification: Diabetic Type 1, Class B. Dating: LMP: 12/22/2012 EDC: 09/28/2013 GA by LMP: 36w0d Best Overall Assessment: 02/15/2013 EDC: 09/28/2013 Assessed GA: 36w0d The Best Overall Assessment is based on the LMP. General Evaluation: heart activity: Present. heart rate: 152 bpm. Presentation: cephalic, Spine right. movement: present. Amniotic Fluid: Normal. MELIA ??13.4 cm. Maximal vertical pocket 5.3 cm. Placenta: Posterior. Placenta Grade: Grade 1. Structure: normal. Anatomy Scan: Pitts gestation. Summary of Ultrasound Findings: Transabdominal US. U/S machine: [email or web address] e8. U/S view: good. Wellbeing Assessment: Amniotic fluid: Normal. MELIA: 13.4 cm. MVP: 5.3 cm. Q1: 2.7 cm. Q2: 2.3 cm. Q3: 3.1 cm. Q4: 5.3 cm. Non Stress Test: reactive. heart rate: 140 bpm. Report Summary: Impression: [id number] Limited obstetrical scan A limited study was [...] ... ... ... ... ... ... ... 08/10/2013 33 + 0 ... ... ... ... ... ... ... 08/17/2013 34 + 0 87.6 84th 314.3 45th 303.2 62nd 59.0 <5th 53.2 6th 2210g , 4 lbs 14 ozs 27th%% 08/24/2013 35 + 0 ... ... ... ... ... ... ... 08/31/2013 36 + 0 ... ... ... ... ... ... ... Procedure Note 08/31/2013 Indication: Maternal disease: Diabetes, pregestational type 1. History: Age: 32 years. : 6 Para: 3. Previous pregnancies: Children born at term: 3. Abortions: 2. Living children: 3. LMP known. Current : Pre- data: Weight 118 lbs. Height 5 ft 1 ins. BMI 22.1. Medical History: Diabetes Mellitus: Start 2007, Classification: Diabetic Type 1, Class B. Dating: LMP: 12/22/2012 EDC: 09/28/2013 GA by LMP: 36w0d Best Overall Assessment: 02/15/2013 EDC: 09/28/2013 Assessed GA: 36w0d The Best Overall Assessment is based on the LMP. General Evaluation: heart activity: Present. heart rate: 152 bpm. Presentation: cephalic, Spine right. movement: present. Amniotic Fluid: Normal. MELIA 13.4 cm. Maximal vertical pocket 5.3 cm. Placenta: Posterior. Placenta Grade: Grade 1. Structure: normal. Anatomy Scan: Pitts gestation. Summary of Ultrasound Findings: Transabdominal US. U/S machine: [email or web address] e8. U/S view: good. Wellbeing Assessment: Amniotic fluid: Normal. MELIA: 13.4 cm. MVP: 5.3 cm. Q1: 2.7 cm. Q2: 2.3 cm. Q3: 3.1 cm. Q4: 5.3 cm. Non Stress Test: reactive. heart rate: 140 bpm. Report Summary: Impression: [id number] Limited obstetrical scan A limited study was [...] ... ... ... ... ... ... ... 08/10/2013 33 + 0 ... ... ... ... ... ... ... 08/17/2013 34 + 0 87.6 84th 314.3 45th 303.2 62nd 59.0 <5th 53.2 6th 2210g , 4 lbs 14 ozs 27th%% 08/24/2013 35 + 0 ... ... ... ... ... ... ... 08/31/2013 36 + 0 ... ... ... ... ... ... ... us Johnna Gregory MD IMG US [facility] ORDERABLES Final Re sult * [facility] LIMITED EXAM (08/24/2013 12:29 EDT) Anatomical Region Laterality Modality Other 08/24/2013 12:2 9 EDT 08/24/2013 13:14 EDT Narrative 08/24/2013 13:14 EDT Indication: Maternal disease: Diabetes, pregestational type 1. History: Age: 32 years. : 6 Para: 3. Previous pregnancies: Children born at term: 3. Abortions: 2. Living children: 3. LMP known. Current : Pre- data: Weight 118 lbs. Height 5 ft 1 ins. BMI 22.1. Medical History: Diabetes Mellitus: Start 2007, Classification: Diabetic Type 1, Class B. Dating: LMP: 12/22/2012 EDC: 09/28/2013 GA by LMP: 35w0d Best Overall Assessment: 02/15/2013 EDC: 09/28/2013 Assessed GA: 35w0d The Best Overall Assessment is based on the LMP. General Evaluation: heart activity: Present. heart rate: 140 bpm. Presentation: cephalic, Spine right. movement: visible. Amniotic Fluid: Normal. MELIA ??15.1 cm. Maximal vertical pocket 4.4 cm. Placenta: Posterior. Placenta Grade: Grade 1. Anatomy Scan: Pitts gestation. Summary of Ultrasound Findings: Transabdominal US. U/S machine: [email or web address] e8. U/S view: good. Wellbeing Assessment: Amniotic fluid: Normal. MELIA: 15.1 cm. MVP: 4.4 cm. Q1: 3.5 cm. Q2: 3.3 cm. Q3: 3.9 cm. Q4: 4.4 cm. Non Stress Test: reactive. heart rate: 140 bpm. Report Summary: Impression: [id number] Limited obstetrical ultrasound This is a pitts gestation. The anatomy was not reviewed in detail. movement was noted. The amniotic fluid volume appears normal. Recommendations: Recommend follow-up with semi-weekly NSTs, [...] ... ... ... ... ... ... ... 08/10/2013 33 + 0 ... ... ... ... ... ... ... 08/17/2013 34 + 0 87.6 84th 314.3 45th 303.2 62nd 59.0 <5th 53.2 6th 2210g , 4 lbs 14 ozs 27th%% 08/24/2013 35 + 0 ... ... ... ... ... ... ... Procedure Note 08/24/2013 Indication: Maternal disease: Diabetes, pregestational type 1. History: Age: 32 years. : 6 Para: 3. Previous pregnancies: Children born at term: 3. Abortions: 2. Living children: 3. LMP known. Current : Pre- data: Weight 118 lbs. Height 5 ft 1 ins. BMI 22.1. Medical History: Diabetes Mellitus: Start 2007, Classification: Diabetic Type 1, Class B. Dating: LMP: 12/22/2012 EDC: 09/28/2013 GA by LMP: 35w0d Best Overall Assessment: 02/15/2013 EDC: 09/28/2013 Assessed GA: 35w0d The Best Overall Assessment is based on the LMP. General Evaluation: heart activity: Present. heart rate: 140 bpm. Presentation: cephalic, Spine right. movement: visible. Amniotic Fluid: Normal. MELIA 15.1 cm. Maximal vertical pocket 4.4 cm. Placenta: Posterior. Placenta Grade: Grade 1. Anatomy Scan: Pitst gestation. Summary of Ultrasound Findings: Transabdominal US. U/S machine: [email or web address] e8. U/S view: good. Wellbeing Assessment: Amniotic fluid: Normal. MELIA: 15.1 cm. MVP: 4.4 cm. Q1: 3.5 cm. Q2: 3.3 cm. Q3: 3.9 cm. Q4: 4.4 cm. Non Stress Test: reactive. heart rate: 140 bpm. Report Summary: Impression: [id number] Limited obstetrical ultrasound This is a pitts gestation. The anatomy was not reviewed in detail. movement was noted. The amniotic fluid volume appears normal. Recommendations: Recommend follow-up with semi-weekly NSTs, [...] ... ... ... ... ... ... ... 08/10/2013 33 + 0 ... ... ... ... ... ... ... 08/17/2013 34 + 0 87.6 84th 314.3 45th 303.2 62nd 59.0 <5th 53.2 6th 2210g , 4 lbs 14 ozs 27th%% 08/24/2013 35 + 0 ... ... ... ... ... ... ... Johnna Gregory MD [facility] Final Re sult * [facility] LIMITED EXAM (08/10/2013 11:57 EST) Anatomical Region Laterality Modality Other 08/10/2013 11:5 7 EST 08/10/2013 12:34 EST Narrative 08/10/2013 12:34 EST Indication: Maternal disease: Diabetes, pregestational type [...] LMP: 12/22/2012 EDC: 09/28/2013 GA by LMP: 33w0d Best Overall Assessment: 02/15/2013 EDC: 09/28/2013 Assessed GA: 33w0d The Best Overall Assessment is based on the LMP. General Evaluation: heart activity: Present. heart rate: 168 bpm. Presentation: cephalic, Spine right. movement: visible. Amniotic Fluid: Normal. MELIA ??14.7 cm. Maximal vertical pocket 4.3 cm. Placenta: Fundal . Placenta Grade: Grade 1. Anatomy Scan: Pitts gestation. Summary of Ultrasound Findings: Transabdominal US. U/S machine: [email or web address] e8. U/S view: good. Wellbeing Assessment: Amniotic fluid: Normal. MELIA: 14.7 cm. MVP: 4.3 cm. Q1: 3.0 cm. Q2: 3.9 cm. Q3: 4.3 cm. Q4: 3.5 cm. Report Summary: Impression: [id number] Limited obstetrical ultrasound This is a pitts gestation. The anatomy was not reviewed in detail. movement was noted. The amniotic fluid volume appears normal. Recommendations: Recommend follow-up with semi-weekly NSTs, [...] ... ... ... ... ... ... ... 08/10/2013 33 + 0 ... ... ... ... ... ... ... Procedure Note 08/10/2013 Indication: Maternal disease: Diabetes, pregestational type 1. History: Age: 32 years. : 6 Para: 3. Previous pregnancies: Children born at term: 3. Abortions: 2. Living children: 3. LMP known. Current : Pre- data: Weight 118 lbs. Height 5 ft 1 ins. BMI 22.1. Medical History: Diabetes Mellitus: Start 2007, Classification: Diabetic Type 1, Class B. Dating: LMP: 12/22/2012 EDC: 09/28/2013 GA by LMP: 33w0d Best Overall Assessment: 02/15/2013 EDC: 09/28/2013 Assessed GA: 33w0d The Best Overall Assessment is based on the LMP. General Evaluation: heart activity: Present. heart rate: 168 bpm. Presentation: cephalic, Spine right. movement: visible. Amniotic Fluid: Normal. MELIA 14.7 cm. Maximal vertical pocket 4.3 cm. Placenta: Fundal . Placenta Grade: Grade 1. Anatomy Scan: Pitts gestation. Summary of Ultrasound Findings: Transabdominal US. U/S machine: [email or web address] e8. U/S view: good. Wellbeing Assessment: Amniotic fluid: Normal. MELIA: 14.7 cm. MVP: 4.3 cm. Q1: 3.0 cm. Q2: 3.9 cm. Q3: 4.3 cm. Q4: 3.5 cm. Report Summary: Impression: [id number] Limited obstetrical ultrasound This is a pitts gestation. The anatomy was not reviewed in detail. movement was noted. The amniotic fluid volume appears normal. Recommendations: Recommend follow-up with semi-weekly NSTs, [...] ... ... ... ... ... ... ... 08/10/2013 33 + 0 ... ... ... ... ... ... ... Johnna Gregory MD [facility] ORDERABLES Final Re sult documented in this encounter Visit Diagnoses Not on filedocumented in this encounter Care Teams Medical Staff Services Manager Relationship Specialty Start Date End Date Huseyin Zazueta MD [address] [place] [address] PCP - General 07/16/09 documented as of this encounter
--- OUTSIDE RECORDS SUMMARY | 2024-05-02 15:20 | XMS_ITS | Encounter Summary ---
Author Organization [facility] Address [address] [place] [address] Care Team Providers Care Railroad Purchasing Agent Name Role Phone Huseyin Zazueta MD Primary Care Provider [phone] Reason for Visit * Reason Comments Non-stress Test Encounter Details Date Type Department Care Team (Late st Contact Info) Description 08/14/2013 9:30 EDT Nurse Only [facility] Obstetrics & Midwifery - [address] [phone] Unknown, Provider, Nurse, [facility] Diabetes mellitus in (Primary Dx) Social [...] Progress Notes * Patrice Agee MD - 08/14/2013 1201 EDT NST Report Baseline Heart Rate: 135 Accelerations: present Movement: present Decelerations: absent Contractions: absent Interpretation: reactive PATRICE AGEE MD 08/14/2013 12:01 documented in this encounter Plan of Treatment Not on file documented as of this encounter Visit Diagnoses Diagnosis Diabetes mellitus in - Primary Diabetes mellitus of mother, complicating , childbirth, or the puerperium, unspecified as to episode of care documented in this encounter Care Teams Railroad Purchasing Agent Relationship Specialty Start Date End Date Huseyin Zazueta MD [address] [place] [id number] PCP - General 07/16/09 documented as of this encounter
--- OUTSIDE RECORDS SUMMARY | 2024-05-02 15:20 | XMS_ITS | Encounter Summary ---
Author Organization [facility] Address [address] [place] [address] Care Team Providers Care Injection Molding Process Technician Name Role Phone Huseyin Zazueta MD Primary Care Provider [phone] Reason for Visit * Reason Onset Date Comments Dental Pain 07/05/2013 Encounter Details Date Type Department Care Team (Late st Contact Info) Description 07/05/2013 Telephone [facility] Obstetrics & Midwifery - [address] [phone] Beatriz Hebert RN Dental Pain Social History Tobacco Use Types Packs/Day Years [...] encounter Miscellaneous Notes * Telephone Encounter - Beatriz Hebert - 07/05/2013 1521 EST Second call from Dr. Collado. He wanted [facility] to know he was going to give vicodin to Carolyn for pain control related to the tooth pain. * Telephone Encounter - Beatriz Hebert - 07/05/[address] Collado called to report Carolyn has a tooth abscess. Carolyn will need antibiotics for treatment. PerDr. Collado if patient decides to have tooth pulled he would use amoxicillin or clindamycin if Carolyn decides to wait until after for a root canal. -reviewed above with Dr. Gregory. Antibiotic choice is fine to use in . -Informed Dr. Collado of recommendation. documented in this encounter Plan of Treatment Not on file documented as of this encounter Visit Diagnoses Not on filedocumented in this encounter Care Teams Injection Molding Process Technician Relationship Specialty Start Date End Date Huseyin Zazueta MD [address] [place] [id number] PCP - General 07/16/09 documented as of this encounter
--- OUTSIDE RECORDS SUMMARY | 2024-05-02 15:20 | XMS_ITS | Encounter Summary ---
Author Organization [facility] Address [address] [place] [address] Care Team Providers Care Crossing Supervisor Name Role Phone Huseyin Zazueta MD Primary Care Provider [phone] Encounter Details Date Type Department Care Team (Late st Contact Info) Description 07/09/2013 Phlebotomy Only [facility] [address] [place] [address] Pipe Organ Installer, Outpatient Diabetes mellitus, antepartum; Type I (juvenile type) diabetes mellitus without mention of complication, not stated as uncontrolled; Abnormal maternal glucose tolerance, antepartum; Type I (juvenile type) diabetes mellitus without [...] Priority Date/Time Associated Diagnosis Comments FRUCTOSAMINE Routine 07/09/2013 13:44 EST Type I (juvenile type) diabetes mellitus without mention of complication, uncontrolled HEMOGLOBIN A1C Routine 07/09/2013 13:44 EST Diabetes mellitus, antepartum Type I (juvenile type) diabetes mellitus without mention of complication, not stated as uncontrolled Abnormal maternal glucose tolerance, antepartum documented in this encounter Results * FRUCTOSAMINE (07/09/2013 13:44 EST) Fructosamine, S 240 200 - 285 mcmol/L [facility] Comment: Performed by: [facility] [place], [address], [place] [address], Beauty Advisor: Sonali Navarro, Ph.D. Blood specimen (specimen) 07/09/2013 13:44 EST 07/09/2013 14:13 EST Carlin Manriquez MD CHEMISTRY & BLOOD GAS ORDERABL ES Final Result Performing Organization Address [facility] de Phone Number [facility] [address] [place] [address] * HEMOGLOBIN A1C (07/09/2013 13:44 EST) Hemoglobin A1C 7.2 % [facility] Comment: Reference Range: <5.7% Normal 5.7-6.4% Increased risk for diabetes =>6.5% Diagnostic for diabetes (if confirmed) The A1c goal for non adults in general is <7%. The A1c goal for selected patients may be significantly lower than 7% if this can be achieved without significant hypoglycemia or other adverse effects of treatment. Est Avg Glucose 160 mg/dl [facility] Comment: eAG represents the A1c result expressed as average glucose in mg/dl. Blood specimen (specimen) 07/09/2013 13:44 EST 07/09/2013 14:13 EST Carlin Manriquez MD CHEMISTRY & BLOOD GAS ORDERABL ES Final Result Performing Organization Address [facility] de Phone Number [facility] [address] [place] [address] documented in this encounter Visit Diagnoses Diagnosis Diabetes mellitus, antepartum(648.03) Diabetes mellitus, antepartum Type I (juvenile type) diabetes mellitus without mention of complication, not stated as uncontrolled Abnormal maternal glucose tolerance, antepartum Type I (juvenile type) diabetes mellitus without mention of complication, uncontrolled documented in this encounter Care Teams Crossing Supervisor Relationship Specialty Start Date End Date Huseyin Zazueta MD [address] [place] [address] PCP - General 07/16/09 documented as of this encounter
--- OUTSIDE RECORDS SUMMARY | 2024-05-02 15:20 | XMS_ITS | Encounter Summary ---
Author Organization [facility] Address [address] [place] [address] Care Team Providers Care Manager Clinical Research Name Role Phone Huseyin Zazueta MD Primary Care Provider [phone] Reason for Visit * Reason Comments Decreased Movement non reactive NS T in the office Encounter Details Date Type Department Care Team (Late st Contact Info) Description 08/07/2013 10:50 EST - 08/07/2013 13:08 EST Hospital Encounter [facility] [address] [place], [place] [id number] Cielo Rollins MD [place], Magdalena Ordonez MD [address] [facility], [facility] [address] [place] [phone] Type 1 diabetes mellitus (CMS-HCC) ([facility]) (Primary Dx); Supervision of other high-risk (V23.89) Discharge Disposition: Home or Self Care Social [...] Sign Reading Time Taken Comments Blood Pressure 105/63 08/07/2013 1300 EST Pulse 82 08/07/2013 1300 EST Temperature 36.2 ??C (97.2 ??F) 08/07/2013 1057 EST Respiratory Rate 18 08/07/2013 1300 EST Oxygen Saturation - - Inhaled Oxygen Concentration - - Weight 60.8 kg (134 lb) 08/07/2013 1057 EST Height 154.9 cm (5' 1) 08/07/2013 1057 EST Body Mass Index 25.32 08/07/2013 1057 EST documented in this encounter Discharge Instructions * Discharge Instr - Other Orders* Shila Martinez MD - 08/07/2013 13:01 EST Discharge Instructions L&D Call your provider if: Your water breaks There's any bright red bleeding Your are not feeling the baby move Severe headaches and/or blurry vision Contractions are closer together and/or stronger, or you are having constant pain Medications: Continue any present medication Activity: Drink plenty of fluids and eat well As tolerated, lie on your left side while resting/napping Call Provider's Office For: To continue with your regularly scheduled appointments. documented in this encounter Medications at Time of Discharge blood glucose (ONE TOUCH ULTRA TEST) test strips 12 Strips by misc (non-drug; combo route) route daily. ICD-9: 648.03 400 Each 11 01/26/2013 4 docusate sodium (COLACE) 100 mg capsule [...] Code Departure Means Destination Home or Self Care documented in this encounter Progress Notes * Shila Martinez MD - 08/07/2013 1308 EST R2 FHT Review Note CC: prolonged monitoring for non-reactive NST FHT: BL 140, mod variability, +accels, -decels; FHT Cat I [place]: rare P: Discussed with patient that FHT reassuring and reactive, will d/c home in stable condition with instructions to follow up with regularly scheduled visit per MFM. Patient verbalized understanding. Discussed with Dr. Marcus Martinez MD 08/07/2013, 13:10 * Freda Cooley RN - 08/07/2013 1128 EST 1055 pt arrived on L&D from the Drs office for a non reassuring NST Plan 2 hours of category 1 tracing and discharge to home 1126 Dr Barnes in to see the pt Discussing the plan pt agrees. 1130 Pt informed she has a regular diet and shown how to order 1145 Pt requests 11 units of insulin to cover her meal 1123 insulin given 1124 pt up to void * Denis Velazquez (Att)MD - 08/07/2013 1054 EST L&D Triage Note CC: IUP at 32w4d sent from clinic for minimal variability and subtle deceleration on NST S: at 32w4d by LMP c/w 5+6wk u/s presents for prolonged monitoring after she had mildvariability and deceleration to 105 on NST in office today. Has irregular mild contractions, which have been about every 5 minutes for the past hour. If she were home, she would not call her providerabout them. Denies loss of fluid or vaginal bleeding. Decreased movement. Last SVE she was closed and 50% effaced. complicated by T1DM. Current regimen: Lantus 32U QAM, Novolog 1:7 (breakfast/lunch), 1:6 (dinner), and correction 1:30. On ultrasound on 07/16, breech presentation, MELIA 16.2, posterior placenta, and EFW 773g (13%ile). O: BP 111/66 Pulse 71 Temp(Src) 36.2 ??C (97.2 ??F) (Tympanic) Resp 18 Ht 154.9 cm (61) Wt 60.782 kg (134 lb) BMI 25.33 kg/m2 LMP 12/22/2012 GEN: NAD SVE: closed/50, FFN collected prior, but discarded after exam Ext: WWP FHR: Baseline 140/ mod Darrell/+ Accel/- Decel, Cat I TOCO: Irritable POC glucose 81 A/P: 32 y.o. at 32w4d with T1DM here for CEFM after NRFA in office. Cat I FHT FWB: -CEFM for 2 hours of Cat I FHT Disposition: -Observe on labor and delivery Global: -CC diet Pt discussed with Drs. Velazquez and Huey Barnes MD 08/07/2013 11:16 MFM Fellow Patient sent from office for non-reactive NST with a subtle deceleration. She is a Type I diabetic with reasonable glycemic control. monitoring reassuring up to this point. Will plan for monitor for 2 hours and if she has a reactive tracing she can be discharged. Dr. Arzate aware. Denis Velazquez MD documented in this encounter Plan of Treatment Not on file documented as of this encounter Procedures Procedure Name Priority Date/Time Associated Diagnosis Comments GLUCOSE, GLUCOMETER Routine 08/07/2013 1 1:06 EST documented in this encounter Results * GLUCOSE, GLUCOMETER (08/07/2013 11:06 EST) Glucose, Fingerstick 81 70 - 100 mg/dl [facility] Safety Relief Valve Technician [place] [id number] [facility] Comment:Test Performed by [facility] 08/07/2013 11:0 6 EST 08/07/2013 11:07 EST us Magdalena Arzate MD CHEMISTRY & BLOOD GAS ORDERABLES Final Result [facility] [address] [place] [address] documented in this encounter Visit Diagnoses Diagnosis Type 1 diabetes mellitus ([facility])- Primary Type I (juvenile type) diabetes mellitus without mention of complication, not stated as uncontrolled Supervision of other high-risk (V23.89) Supervision of other high-risk documented in this encounter Administered Medications Inactive Administered Medications - up to 3 most recent administrations Medication Order MAR Action Action Date Dose Rate Site insulin aspart (NOVOLOG FLEXPEN) injection 11 Units 11 Units, subcutaneous, NOW X1, 1 dose, On Tue08/07/13 at 1215, Routine Given 08/07/2013 12:24 EST 11 Units documented in this encounter Active and Recently Administered Medications Times are shown in EST. Scheduled Medication Order 08/05/2013 08/06/2013 08/07/2013 insulin aspart (NOVOLOG FLEXPEN) injection 11 Units (COMPLETED) 11 Units, subcutaneous, NOW X1, 1 dose, On Tue08/07/13 at 1215, Routine 1224 (Given - Provid er: Freda Cooley RN) documented in this encounter Orders Admission Count Last Ordered Date First Orde red Date STATUS: OUTPATIENT OBSERVATION SERVICES 1 0 08/07/2013 Transfer Count Last Ordered Date First Orde red Date NOTIFY PPS OF DISCHARGE COMPLETE 1 08/08/19 14 Discharge Count Last Ordered Date First Orde red Date DISCHARGE PATIENT 1 08/07/2013 documented in this encounter Care Teams Manager Clinical Research Relationship Specialty Start Date End Date Huseyin Zazueta MD [address] [place] [address] PCP - General 07/16/09 documented as of this encounter
--- OUTSIDE RECORDS SUMMARY | 2024-05-02 15:20 | XMS_ITS | Encounter Summary ---
Author Organization [facility] Address [address] [place] [address] Care Team Providers Care Ice Guard Inspector Name Role Phone Huseyin Zazueta MD Primary Care Provider [phone] Reason for Referral * (Routine) - Closed Specialty Diagnoses / Procedures [facility] Referred To Contact Celeste Caldwell MD Phone: tel: fax: Referral ID Status Reason Start Date Expiration Date V isits Requested Visits Authorized [id number] Closed Specialty Services Required 09/04/2013 1 1 Question Answer Reason for recommendation: discharge follow up Encounter Details Date Type Department Care Team (Late st Contact Info) Description 09/04/2013 10:50 EDT - 09/04/2013 16:50 EDT Hospital Encounter [facility] [address] [place], [place] [address] Magdalena Arzate MD [address] [facility], [address] [place] [id number] Type 1 diabetes mellitus (CMS-HCC) (HCC-CMS) (Primary Dx); Supervision of other high-risk (V23.89) [...] Sign Reading Time Taken Comments Blood Pressure 111/78 09/04/2013 1500 EDT Pulse 69 09/04/2013 1500 EDT Temperature 36.8 ??C (98.2 ??F) 09/04/2013 1052 EDT Respiratory Rate 16 09/04/2013 1500 EDT Oxygen Saturation - - Inhaled Oxygen Concentration - - Weight - - Height - - Body Mass Index - - documented in this encounter Medications at Time [...] Progress Notes * Celeste Caldwell MD - 09/04/2013 1600 EDT L&D Progress Note (Late entry, patient seen and evaluated around 1600 on 09/04/2013) CC: IUP @ 36w4d, T1DM, NRNST in office, monitoring on DORINDA S: Patient reports feeling fine good FM. O: BP 111/78 Pulse 69 Temp(Src) 36.8 ??C (98.2 ??F) (Oral) Resp 16 LMP 12/22/2012 FHT: Baseline 130, mod variability, + accels, no decels; Category I tracing [place]: Irregular, q3-15 SVE: Deferred BPP: 10/10 based on current NST, passed in 3 minutes A/P: 32 y.o. @ 36w4d with T1DM, sent from office for NRNST. Category I tracing presently. -Now reassuring assessment, passed BPP. -Will D/C home with appropriate labour precautions. Continue outpatient antepartum testing, next NST Tuesday. Discussed with Dr. Arzate. Celeste Caldwell MD 09/05/2013 10:20 Cosigned by Magdalena Arzate MD at 09/18/2013 17:41 EDT * Trena Jones RN - 09/04/2013 1404 EDT 1400 Anila Jones RN assuming care from EDITH Hirsch Dr. at bedside to answer questions * Trena Jones RN - 09/04/2013 1212 EDT 1150 Report taken from Stephanie Mendoza for lunch break. [address] Odell, cervix is unchanged. Pt checked her own blood sugar per Dr. Odell, FS=76. Pt ordered clear liquid diet. 1215 Report back to Stephanie Mendoza. * Magdalena Arzate MD - 09/04/2013 1123 EDT L&D Triage Note CC: IUP at 36w4d sent from clinic for prolonged monitoring after NR NST S: 32 yo with T1DM on insulin pump at 36w4d by 7+6 wk u/s presents after she was sent from clinic with NR NST. She is currently getting twice weekly NSTs and weekly AFIs for her history of T1DM. According to Tiffanie Patiño RN, the NST in the office showed minimal variability, one 10x10 acceleration, and no decelerations over a 40 minute period. Carolyn denies contractions, lof, or vaginal bleeding. +FM. She had decreased movement yesterday, but much improved today. She is currently taking amoxicillin for an infection of her finger. EFW at 34+0wga was 2210g (27%ile), ceph, Posterior placenta O: BP 101/57 Pulse 66 Temp(Src) 36.8 ??C (98.2 ??F) (Oral) Resp 16 LMP 12/22/2012 GEN: NAD ABD: Soft, gravid, nontender SVE: FT/50/posteripr Ext: WWP FHR: Baseline 140/ mod Darrell/+ Accel/2 minute late deceleration to 120 at 1112, Cat II FHT TOCO: Irritable A/P: 32 y.o. with T1DM on insulin pump at 36w4d with NR NST in office here for prolonged CEFM. Cat II FHT Disposition: -Observation on L&D FWB: -CEFM with possible BPP vs MONOTYPE MACHINIST pending further assessment of FHT -Clear liquid diet -PIV if she has another deceleration T1DM: -Carolyn will continue testing FSBG with her glucometer because it is attached to her pump, but will tell us the value to record. -POC glucose Q4 hours while on clear liquid diet Pt discussed with Dr. Huey Barnes MD 09/04/2013 12:55 Attestation statement: I discussed the patient with Dr. Barnes at the time of the visit. I agree with the findings and the plan of care documented. Magdalena Arzate MD documented in this encounter Plan of Treatment Scheduled Referrals Name Type Priority Associated Diagnoses Order Schedule PROVIDER FOLLOW-UP INSTRUCTIONS Outpatient Referral Routine Ordered: 09/04/2013 documented as of this encounter Procedures Procedure Name Priority Date/Time Associated Diagnosis Comments LD US BPP WITH NST Routine 09/05/2013 10 :15 EDT BLOOD BANK HOLD STAT 09/04/2013 14:03 EDT documented in this encounter Results * LD US BPP WITH NST (09/05/2013 10:15 EDT) Anatomical Region Laterality Modality Other 09/05/2013 10:1 5 EDT 09/05/2013 17:13 EDT Narrative 09/05/2013 17:13 EDT Indication: Maternal disease: Diabetes, pregestational type 1. Non-reassuring assessment. History: Age: 32 years. : 6 Para: 3. Previous pregnancies: Children born at term: 3. Abortions: 2. Living children: 3. LMP known. Current : Pre- data: Weight 118 lbs. Height 5 ft 1 ins. BMI 22.1. Medical History: Diabetes Mellitus: Start 2007, Classification: Diabetic Type 1, Class B. Dating: LMP: 12/22/2012 EDC: 09/28/2013 GA by LMP: 36w5d Best Overall Assessment: 02/15/2013 EDC: 09/28/2013 Assessed GA: 36w5d The Best Overall Assessment is based on the LMP. General Evaluation: heart activity: Present. heart rate: 133 bpm. Presentation: cephalic. movement: visible. Amniotic Fluid: Normal. MELIA ??15.5 cm. Maximal vertical pocket 6.8 cm. Placenta: Posterior. Placenta Grade: Grade 2. Anatomy Scan: Pitts gestation. Summary of Ultrasound Findings: Transabdominal US. U/S machine: [employer] e8. U/S view: good. Wellbeing Assessment: Amniotic fluid: Normal. MELIA: 15.5 cm. MVP: 6.8 cm. Q1: 6.8 cm. Q2: 4.1 cm. Q3: 2.3 cm. Q4: 2.3 cm. Non Stress Test: reactive. heart rate: 130 bpm. Biophysical Profile: body movements: normal (2), tone: normal (2), breathing movements: normal (2), Amniotic fluid volume: abnormal (0), Non-stress test: Reactive (2). Score 8 / 10. Report Summary: Impression: [address] Biophysical Profile (including NST) This is a pitts gestation. See BPP score above. Recommendations: Recommend follow-up with semi-weekly NSTs, weekly [...] ... ... ... ... ... ... ... External image archive: DVD: No: DVD with patient name, dated. Childbirth Educator: Celeste Caldwell MD Procedure Note 09/05/2013 Indication: Maternal disease: Diabetes, pregestational type 1. Non-reassuring assessment. History: Age: 32 years. : 6 Para: 3. Previous pregnancies: Children born at term: 3. Abortions: 2. Living children: 3. LMP known. Current : Pre- data: Weight 118 lbs. Height 5 ft 1 ins. BMI 22.1. Medical History: Diabetes Mellitus: Start 2007, Classification: Diabetic Type 1, Class B. Dating: LMP: 12/22/2012 EDC: 09/28/2013 GA by LMP: 36w5d Best Overall Assessment: 02/15/2013 EDC: 09/28/2013 Assessed GA: 36w5d The Best Overall Assessment is based on the LMP. General Evaluation: heart activity: Present. heart rate: 133 bpm. Presentation: cephalic. movement: visible. Amniotic Fluid: Normal. MELIA 15.5 cm. Maximal vertical pocket 6.8 cm. Placenta: Posterior. Placenta Grade: Grade 2. Anatomy Scan: Pitts gestation. Summary of Ultrasound Findings: Transabdominal US. U/S machine: [employer] e8. U/S view: good. Wellbeing Assessment: Amniotic fluid: Normal. MELIA: 15.5 cm. MVP: 6.8 cm. Q1: 6.8 cm. Q2: 4.1 cm. Q3: 2.3 cm. Q4: 2.3 cm. Non Stress Test: reactive. heart rate: 130 bpm. Biophysical Profile: body movements: normal (2), tone: normal (2), breathing movements: normal (2), Amniotic fluid volume: abnormal (0), Non-stress test: Reactive (2). Score 8 / 10. Report Summary: Impression: [id number] Biophysical Profile (including NST) This is a pitts gestation. See BPP score above. Recommendations: Recommend follow-up with semi-weekly NSTs, weekly [...] ... ... ... ... ... ... ... External image archive: DVD: No: DVD with patient name, dated. Childbirth Educator: Celeste Caldwell MD Celeste Caldwell MD [facility] LD ORDERABLES Final Resul t * BLOOD BANK SPECIMEN HOLD (09/04/2013 14:03 EDT) Hold BB Spec will exp at 23:59, 3 days from collect date [facility] BLOOD BANK Comment:COLLECTED 09/04 Blood specimen (specimen) 09/04/2013 14:03 EDT us Veronica Barnes MD BLOOD BANK TESTS Final Result [facility] BLOOD BANK [address] [place] [address] documented in this encounter Visit Diagnoses Diagnosis Type 1 diabetes mellitus ([facility])- Primary Type I (juvenile type) diabetes mellitus without mention of complication, not stated as uncontrolled Supervision of other high-risk (V23.89) Supervision of other high-risk documented in this encounter Administered Medications Inactive Administered Medications - up to 3 most recent administrations Medication Order MAR Action Action Date Dose Rate Site lactated ringers (LR) infusion 150-200 mL/hr, intravenous, CONTINUOUS, Starting on 09/04/13 at 1200, Until 09/04/13 at 1855, Routine New Bag 09/04/2013 1:50 EDT 200 mL/hr 200 mL/hr documented in this encounter Active and Recently Administered Medications Times are shown in EDT. Continuous Medication Order 09/02/2013 09/03/2013 09/04/2013 lactated ringers (LR) infusion (CANCELED) 150-200 mL/hr, intravenous, CONTINUOUS, Starting on 09/04/13 at 1200, Until 09/04/13 at 1855, Routine 0150 (New Bag - Prov ider: Trena Jones RN - Comment: Started by Clinton Bowers RN) documented in this encounter Orders Diet Count Last Ordered Date First Orde red Date DISCHARGE DIET 1 09/04/2013 Nursing Count Last Ordered Date First Orde red Date BATHING INSTRUCTIONS 1 09/04/2013 Admission Count Last Ordered Date First Orde red Date STATUS: OUTPATIENT OBSERVATION SERVICES 1 0 09/04/2013 Transfer Count Last Ordered Date First Orde red Date NOTIFY PPS OF DISCHARGE COMPLETE 09/05/19 14 Discharge Count Last Ordered Date First Orde red Date DISCHARGE PATIENT 1 09/04/2013 Legal Count Last Ordered Date First Orde red Date MISCELLANEOUS DISCHARGE INSTRUCTIONS 06/2013 documented in this encounter Care Teams Ice Guard Inspector Relationship Specialty Start Date End Date Huseyin Zazueta MD [address] [facility] [place] [address] PCP - General 07/16/09 documented as of this encounter
--- OUTSIDE RECORDS SUMMARY | 2024-05-02 15:20 | XMS_ITS | Encounter Summary ---
Author Organization [facility] Address [address] [place] [address] Care Team Providers Care Scorekeeper Name Role Phone Huseyin Zazueta MD Primary Care Provider Encounter Details Date Type Department Care Team (Late st Contact Info) Description 08/15/2013 Orders Only [facility] OBGYN Services - [facility] [address] [place] [address] Johnna Gregory MD [address] [place] [phone] Supervision of high-risk (Primary Dx) Social History Tobacco Use Types [...] this encounter Visit Diagnoses Diagnosis Supervision of high-risk - Primary Unspecified high-risk documented in this encounter Care Teams Scorekeeper Relationship Specialty Start Date End Date Huseyin Zazueta MD [address] [place] [address] PCP - General 07/16/09 documented as of this encounter
--- OUTSIDE RECORDS SUMMARY | 2024-05-02 15:20 | XMS_ITS | Encounter Summary ---
Author Organization [facility] Address [address] [place] [address] Care Team Providers Care Mobile Home Technician Name Role Phone Huseyin Zazueta MD Primary Care Provider [phone] Reason for Visit * Reason Onset Date Comments Diabetes 08/21/2013 pump Encounter Details Date Type Department Care Team (Late st Contact Info) Description 08/21/2013 Telephone [facility] Endocrinology - [address] [id number] Carlin Manriquez MD [address] [place] [address], [address] [phone] Diabetes (pump) Social History Tobacco Use Types Packs/Day Years [...] encounter Miscellaneous Notes * Telephone Encounter - Lacie Nichole RN - 08/21/2013 1301 EDT Spoke to pt. She reports lows in 50 range during night. fbg today =90 and in good range today Current basal = 0.8 units /hr Plan: Decrease basal as follows: 00= 0.7 03= 0.75 07=0.8 21=0.75 Total= 18.55 Pt agrees to call tomorrow with update,sooner prn * Telephone Encounter - Rosmery Mclain - 08/21/2013 1046 EDT Pt asking to speak to Lacie regarding her pump. Please call to discuss. documented in this encounter Plan of Treatment Not on file documented as of this encounter Visit Diagnoses Not on filedocumented in this encounter Care Teams Mobile Home Technician Relationship Specialty Start Date End Date Huseyin Zazueta MD [address] [place] [address] PCP - General 07/16/09 documented as of this encounter
--- OUTSIDE RECORDS SUMMARY | 2024-05-02 15:20 | XMS_ITS | Encounter Summary ---
Author Organization [facility] Address [address] [place] [address] Care Team Providers Care Cota Name Role Phone Huseyin Zazueta MD Primary Care Provider [phone] Encounter Details Date Type Department Care Team (Late st Contact Info) Description 09/05/2013 Orders Only [facility] Obstetrics & Midwifery - [facility] [address] [place], [place] [id number] Magdalena Arzate MD [address] [facility], [address] [place] [address] Social History Tobacco Use Types [...] on filedocumented in this encounter Care Teams Cota Relationship Specialty Start Date End Date Huseyin Zazueta MD [address] [place] [address] PCP - General 07/16/09 documented as of this encounter
--- OUTSIDE RECORDS SUMMARY | 2024-05-02 15:20 | XMS_ITS | Encounter Summary ---
Author Organization [facility] Address [address] [place] [address] Care Team Providers Care Service Center Coordinator Name Role Phone Huseyin Zazueta MD Primary Care Provider [phone] Reason for Visit * Reason Comments Non-stress Test TYPE 1 DM Encounter Details Date Type Department Care Team (Late st Contact Info) Description 09/04/2013 9:30 EDT Nurse Only [facility] Obstetrics & Midwifery - [facility] [address] [place], [place] [phone] Unknown, Provider, Nurse, [facility] Diabetes mellitus in (Primary Dx) Social History [...] Progress Notes * Patrice Agee MD - 09/04/2013 1139 EDT NST Report Baseline Heart Rate: 140 Accelerations: absent Movement: present Decelerations: absent Contractions: one Interpretation: not reactive There is minimal variability throughout 40 minutes of the NST. There is one 10 bpm acceleration at the end of monitoring. To Labor and Delivery for additional monitoring. PATRICE AGEE MD 09/04/2013 11:39 documented in this encounter Plan of Treatment Not on file documented as of this encounter Visit Diagnoses Diagnosis Diabetes mellitus in - Primary Diabetes mellitus of mother, complicating , childbirth, or the puerperium, unspecified as to episode of care documented in this encounter Care Teams Service Center Coordinator Relationship Specialty Start Date End Date Huseyin Zazueta MD [address] [place] [address] PCP - General 07/16/09 documented as of this encounter
--- OUTSIDE RECORDS SUMMARY | 2024-05-02 15:20 | XMS_ITS | Encounter Summary ---
Author Organization [facility] Address [address] [place] [address] Care Team Providers Care Personal Clothing Laundry Aide Name Role Phone Huseyin Zazueta MD Primary Care Provider [phone] Reason for Visit * Reason Comments Diabetes Encounter Details Date Type Department Care Team (Latest Contact Info) Description 08/30/2013 14:00 EDT Nurse Only [facility] Endocrinology - [address] [phone] Unknown, Provider, Lacie Otto, RN CDE Type I (juvenile type) diabetes mellitus without mention of complication, not stated as uncontrolled (Primary Dx) Social History Tobacco Use [...] Sign Reading Time Taken Comments Blood Pressure 110/80 08/30/2013 1357 EDT Pulse 92 08/30/2013 1357 EDT Temperature - - Respiratory Rate - - Oxygen Saturation - - Inhaled Oxygen Concentration - - Weight 63.9 kg (140 lb 12.8 oz) 08/30/2013 1357 EDT Height 154.9 cm (5' 1) 08/30/2013 1357 EDT Body Mass Index 26.6 08/30/2013 1357 EDT documented in this encounter Patient Instructions * Patient Instructions* Lacie Nichole RN - 08/30/2013 14:06 EDT New Pump Settings: Basals: time ratio 00 0.625 down 03 0.725 down 07 0.85 uo 21 0.75 23 new time 0.725 down total 18.9 Carb ratios: time ratio 00 5.5 up Correction Factor time ratio 00 40 up Target time ratio 00 80-120 Active Insulin 4 hrs As soon as you start labor notify ob-premises technician and endocrine. You will need a reduction in the pump settings. When you go to the hospital take extra pump supplies so you will be able to stay on the pump Call me tomorrow afternoon with update. We will see when Dr Manriquez needs to see you. We have changed high alarm from 250 to 180 documented in this encounter Progress Notes * Lacie Nichole RN - 08/30/2013 1406 EDT Images from the original note were not included. BP 110/80 Pulse 92 Ht 154.9 cm (61) Wt 63.866 kg (140 lb 12.8 oz) BMI 26.62 kg/m2 LMP 12/22/2012 Current Outpatient Prescriptions Medication Sig [...] labor, antepartum ??? uterine contractions, antepartum PUMP FOLLOW UP NOTE Pump model:mm 530g Infusion set:sure T Insulin:novolog Meter:contour next link Basal rates: time rate 00 0.7 03 0.75 07 0.8 21 0.75 total 18.55 Carb ratios: time ratio 00 6 Correction ratios: time ratio 00 50 Target: time Target range 00 80-120 Active insulin 4 hrs Hypoglycemia: Nocturnal lows confirmed with recorded blood sugars and sensor download. Only occ lows during the day. Blood sugar assessment: Moderate variability noted. Daytime readings close to 200 range. Adherence to monitoring: excellent Adherence to dosing: Appears to be using bolus program appropriately. Appears to need increase prandial dosing as well as stronger correction doses. Adherence to hyperglycemia protocol: Glucagon current___x___ ketosticks current___x____ Emergency Supplies: Rapid Acting pens Basal insulin__x___ Syringes/pen needles carries extra pump supplies _x Pt has been advised of Off Pump Guidelines Pt has been advised to avoid Xray devices including airport scanners Yes Changing sites every 2-3 days Site assessment:needing to put bandaid over infusion site. Sensor is comfortable,needs to avoid gravid abdomen for both infusion set and sensor Correct time confirmed on pump: yes Assessment: Almost at 36 weeks gestation. No peripheral edema. No headaches. Pt reports that induction will be done if no spontaneous labor by 09/21 Pt is 1 week s/p insulin pump start. States that she is quite pleased with pump therapy. Sensor is mostly accurate per pt. At this point pt appears to need basal decrease overnight and basal increase during the day. Also appears to need stronger prandial and correction dosing. She does not have a pending visit scheduled with Dr Manriquez so will ask Dr Manriquez when she would like to see pt. Plan: New Pump Settings: Basals: time ratio 00 0.625 down 03 0.725 down 07 0.85 uo 21 0.75 23 new time 0.725 down total 18.9 Carb ratios: time ratio 00 5.5 up Correction Factor time ratio 00 40 up Target time ratio 00 80-120 Active Insulin 4 hrs As soon as you start labor notify ob-premises technician and endocrine. You will need a reduction in the pump settings. When you go to the hospital take extra pump supplies so you will be able to stay on the pump Call me tomorrow afternoon with update. We will see when Dr Manriquez needs to see you. We have changed high alarm from 250 to 180 No barriers to education noted. Pt verbalized understanding Time spent with patient: 30 minutes. Return to CDE: prn Dr Manriquez is supervising physician documented in this encounter Plan of Treatment Not on file documented as of this encounter Visit Diagnoses Diagnosis Type I (juvenile type) diabetes mellitus without mention of complication, not stated as uncontrolled- Primary documented in this encounter Care Teams Personal Clothing Laundry Aide Relationship Specialty Start Date End Date Huseyin Zazueta MD [address] [place] [address] PCP - General 07/16/09 documented as of this encounter
--- OUTSIDE RECORDS SUMMARY | 2024-05-02 15:20 | XMS_ITS | Encounter Summary ---
Author Organization [facility] Address [address] [place] [address] Care Team Providers Care Telephone Ad Taker Name Role Phone Huseyin Zazueta MD Primary Care Provider [phone] Reason for Visit * Reason Onset Date Comments Appointment Related 08/06/2013 Encounter Details Date Type Department Care Team (Late st Contact Info) Description 08/06/2013 Telephone [facility] Endocrinology - [address] [address] Raffaele Nichole, RN CDE Appointment Related Social History Tobacco Use Types [...] Telephone Encounter - Raffaele Nichole RN - 08/06/2013 1312 EST email from pt: I can do anyday Tue-Tue. I have appts at [facility] on Tuesday so maybe before or after that? If Tuesday isn't good, any time Tue or is fine since I'm only a few minutes away when at work. This is my reply: How about Tuesday at 2 pm? Raffaele This is pt reply: I'll be there :) This is my reply: Ok this will be for saline start which I will supply, then will get you scheduled next week for insulin start. Thanks,raffaele * Telephone Encounter - Raffaele Nichole RN - 08/06/2013 1120 EST email from pt: Good Morning Raffaele! I just wanted to let you know that my new Medtronic pump is scheduled for delivery today. I need toset up something with you to get me started with it. I will also need a new prescription for Novolog to go into the pump. I currently have plenty of pens but I understand that these are not usable for the pump???Please let me know what your thoughts are as far as getting together???. Carolyn Portillo This is my reply: Great news. I can see you this week for training. Let me know which day is best for you raffaele documented in this encounter Plan of Treatment Not on file documented as of this encounter Visit Diagnoses Not on filedocumented in this encounter Care Teams Telephone Ad Taker Relationship Specialty Start Date End Date Huseyin Zazueta MD [address] [place] [address] PCP - General 07/16/09 documented as of this encounter
--- OUTSIDE RECORDS SUMMARY | 2024-05-02 15:20 | XMS_ITS | Encounter Summary ---
Author Organization [facility] Address [address] [place] [address] Care Team Providers Care Polls Or Surveys Interviewer Name Role Phone Huseyin Zazueta MD Primary Care Provider [phone] Reason for Visit * Reason Onset Date Comments Diabetes 08/20/2013 Encounter Details Date Type Department Care Team (Late st Contact Info) Description 08/20/2013 Telephone [facility] Endocrinology - [address] [address] Lacie Nichole RN CDE Diabetes Social History Tobacco Use [...] Telephone Encounter - Lacie Nichole RN - 08/20/2013 1619 EDT Pt called at [facility] 4 pm with bg= 98 s/p insulin pump start today. Agrees to check frequently and will call tomorrow with update,sooner prn documented in this encounter Plan of Treatment Not on file documented as of this encounter Visit Diagnoses Not on filedocumented in this encounter Care Teams Polls Or Surveys Interviewer Relationship Specialty Start Date End Date Huseyin Zazueta MD [address] [place] [address] PCP - General 07/16/09 documented as of this encounter
--- OUTSIDE RECORDS SUMMARY | 2024-05-02 15:20 | XMS_ITS | Encounter Summary ---
Author Organization [facility] Address [address] [place] [address] Care Team Providers Care Liquor Runner Name Role Phone Huseyin Zazueta MD Primary Care Provider [phone] Reason for Visit * Reason Onset Date Comments Contractions 07/06/2013 Encounter Details Date Type Department Care Team (Late st Contact Info) Description 07/06/2013 Telephone [facility] Obstetrics & Midwifery - [address] [phone] Beatriz Hebert RN Contractions Social History Tobacco Use Types Packs/Day Years [...] * Telephone Encounter - Beatriz Hebert - 07/06/2013 4918 EST Responded to email sent via my chart. Carolyn reports she has had some contractions over the last fewdays. Reports cramping with tightening of her abd. She denies bleeding, watery discharge and reports baby is active. States contractions are random and is not having them as we talked on the phone. Re viewed signs and symptoms of labor. Pt. Denies vaginal or rectal pressure with contractions. Carolyn expressed worry due to previous contractions. Pt has appt. Scheduled for two weeks. Offered an appointment on Tuesday if she would like to come in earlier. She accepted. Instructed Carolyn she should call if contractions return and do not stop after trying to hydrate and lie down over an hour. Carolyn verbalized understanding and will call if needed. Pt given after office hour phone number to reach contact center agent. documented in this encounter Plan of Treatment Not on file documented as of this encounter Visit Diagnoses Not on filedocumented in this encounter Care Teams Liquor Runner Relationship Specialty Start Date End Date Huseyin Zazueta MD [address] [place] [address] PCP - General 07/16/09 documented as of this encounter
--- OUTSIDE RECORDS SUMMARY | 2024-05-02 15:20 | XMS_ITS | Encounter Summary ---
Author Organization [facility] Address [address] [place] [address] Care Team Providers Care Hat Sizer Name Role Phone Huseyin Zazueta MD Primary Care Provider [phone] Reason for Visit * Reason Comments Non-stress Test Encounter Details Date Type Department Care Team (Late st Contact Info) Description 08/28/2013 9:30 EDT Nurse Only [facility] Obstetrics & Midwifery - [address] [phone] Unknown, Provider, Nurse, [facility] Diabetes mellitus in (Primary Dx) Social [...] Progress Notes * Patrice Agee MD - 08/28/2013 1001 EDT NST Report Baseline Heart Rate: 140 Accelerations: present Movement: present Decelerations: absent Contractions: absent Interpretation: reactive PATRICE AGEE MD 08/28/2013 10:01 documented in this encounter Plan of Treatment Not on file documented as of this encounter Visit Diagnoses Diagnosis Diabetes mellitus in - Primary Diabetes mellitus of mother, complicating , childbirth, or the puerperium, unspecified as to episode of care documented in this encounter Care Teams Hat Sizer Relationship Specialty Start Date End Date Huseyin Zazueta MD [address] [place] [address] PCP - General 07/16/09 documented as of this encounter
--- OUTSIDE RECORDS SUMMARY | 2024-05-02 15:20 | XMS_ITS | Encounter Summary ---
Author Organization [facility] Address [address] [place] [address] Care Team Providers Care Driver/Sales Workers Name Role Phone Huseyin Zazueta MD Primary Care Provider [phone] Reason for Visit * Reason Comments Routine Visit Encounter Details Date Type Department Care Team (Late st Contact Info) Description 08/31/2013 11:30 EDT Routine [facility] Obstetrics & Midwifery - [address] [phone] Magdalena Arzate MD [address] [place] [address], [address] [place] [address] GA: 36w0d Social History Tobacco Use Types Packs/Day Years [...] Sign Reading Time Taken Comments Blood Pressure 102/62 08/31/2013 1200 EDT Pulse - - Temperature - - Respiratory Rate - - Oxygen Saturation - - Inhaled Oxygen Concentration - - Weight 63.1 kg (139 lb 3.2 oz) 08/31/2013 1200 E DT Height - - Body Mass Index 26.3 08/30/2013 1357 EDT documented in this encounter Progress Notes * Beatriz Hebert - 08/31/2013 1318 EDT I was supervised by Dr. Magdalena Arzate who was present and immediately available in the office suite. Beatriz Hebert RN 08/31/2013 13:18 * Cielo Rollins MD - 08/31/2013 1242 EDT 36-40 Weeks Subjective: Carolyn Portillo is a 32 y.o. #1 IUP at 36w0d Patient reports: no complaints Contractions: [place] and IrregularFetal movement: present #2. Additional problems: see below Objective: BP 102/62 Wt 63.141 kg (139 lb 3.2 oz) BMI 26.32 kg/m2 LMP 12/22/2012 NST- reactive Assessment:PLAN 1. IUP at 36w0d: size equals dates 2. Diabetes mellitus in Pump started 08/17 [facility] pump/pt agreement signed and placed in scanned media. All testing ordered. Induction set for 4/18- 39 wks Supervision of other high-risk (V23.89) tdap given 3. Follow-up in 1 weeks documented in this encounter Miscellaneous Notes * Assessment & Plan Note - Cielo Rollins MD - 08/31/2013 1241 EDTAssociated Problem(s): Supervision of other high-risk (Resolved 11/04/2013) tdap given * Assessment & Plan Note - Cielo Rollins MD - 08/31/2013 1238 EDTAssociated Problem(s): Diabetes mellitus in (Resolved 11/04/2013) Pump started 08/17 [facility] pump/pt agreement signed and placed in scanned media. All testing ordered. Induction set for 4/18- 39 wks documented in this encounter Plan of Treatment Not on file documented as of this encounter Visit Diagnoses Diagnosis Need for Tdap vaccination- Primary Need for prophylactic vaccination with combined guyqpbzmaa-fhxzyaf-udcpycsiz (DTP) vaccine documented in this encounter Discontinued Medications Medication Sig Discontinue Reason Start Date End Da te ketone urine reagent strip (KETOSTIX) Use 1 Strip as directed as needed (hyperglycemia) if BG is greater than 250 (for 2 consecutive readings), if ill, and/or if vomiting.. 08/10/2013 08/31/2013 documented as of this encounter Orders Immunization/Injection Count Last Ordered Date First Ordered Date TDAP VACCINE =>7YO IM 1 08/31/2013 documented in this encounter Care Teams Driver/Sales Workers Relationship Specialty Start Date End Date Huseyin Zazueta MD [address] [place] [address] PCP - General 07/16/09 documented as of this encounter
--- OUTSIDE RECORDS SUMMARY | 2024-05-02 15:20 | XMS_ITS | Encounter Summary ---
Author Organization [facility] Address [address] [place] [address] Care Team Providers Care Climatology Professor Name Role Phone Huseyin Zazueta MD Primary Care Provider Reason for Visit * Reason Comments Non-stress Test Encounter Details Date Type Department Care Team (Late st Contact Info) Description 08/10/2013 11:00 EST Nurse Only [facility] Obstetrics & Midwifery - [address] [phone] Johnna Gregory MD [address] [place] [id number] Nurse, [facility] Diabetes mellitus in (Primary Dx) [...] as of this encounter Progress Notes * Yodit Henderson MD - 08/10/2013 1323 EST NST Report Baseline Heart Rate: 140 Accelerations: present Movement: present Decelerations: absent Contractions: rare Interpretation: reactive Yodit Henderson MD documented in this encounter Plan of Treatment Not on file documented as of this encounter Visit Diagnoses Diagnosis Diabetes mellitus in - Primary Diabetes mellitus of mother, complicating , childbirth, or the puerperium, unspecified as to episode of care documented in this encounter Care Teams Climatology Professor Relationship Specialty Start Date End Date Huseyin Zazueta MD [address] [place] [address] PCP - General 07/16/09 documented as of this encounter
--- OUTSIDE RECORDS SUMMARY | 2024-05-02 15:20 | XMS_ITS | Encounter Summary ---
Author Organization [facility] Address [address] [place] [address] Care Team Providers Care Knockup Worker Name Role Phone Huseyin Zazueta MD Primary Care Provider [phone] Encounter Details Date Type Department Care Team (Latest Contact Info) Description 07/30/2013 13:27 EST - 07/30/2013 23:59 EST Hospital Encounter [facility] [place] [address] [place] [address] Unknown, Provider, Carlin Woody MD [address] [place] [address], [address] [phone] Discharge Disposition: Auto Discharge Social [...] on filedocumented in this encounter Care Teams Knockup Worker Relationship Specialty Start Date End Date Huseyin Zazueta MD [address] [place] [address] PCP - General 07/16/09 documented as of this encounter
--- OUTSIDE RECORDS SUMMARY | 2024-05-02 15:20 | XMS_ITS | Encounter Summary ---
Author Organization [facility] Address [address] [place] [address] Care Team Providers Care Carpet Yarn Winder Operator Name Role Phone Huseyin Zazueta MD Primary Care Provider [phone] Reason for Visit * Reason Comments Non-stress Test Encounter Details Date Type Department Care Team (Late st Contact Info) Description 08/07/2013 9:30 EST Nurse Only [facility] Obstetrics & Midwifery - [address] [phone] Unknown, Provider, Nurse, [facility] Diabetes mellitus in (Primary Dx) Social [...] Progress Notes * Patrice Agee MD - 08/07/2013 1039 EST NST Report Baseline Heart Rate: 145 Accelerations: absent Movement: present Decelerations: present Contractions: absent Interpretation: not reactive When initially placed on monitor, fhr ~105 with gradual increase to 145, mild variability. By 35 minutes into monitoring, variability increased with 10 x 10 accels but not 15 x 15. To L&d for prolonged monitoring. PATRICE AGEE MD 08/07/2013 10:39 documented in this encounter Plan of Treatment Not on file documented as of this encounter Visit Diagnoses Diagnosis Diabetes mellitus in - Primary Diabetes mellitus of mother, complicating , childbirth, or the puerperium, unspecified as to episode of care documented in this encounter Care Teams Carpet Yarn Winder Operator Relationship Specialty Start Date End Date Huseyin Zazueta MD [address] [place] [address] PCP - General 07/16/09 documented as of this encounter
--- OUTSIDE RECORDS SUMMARY | 2024-05-02 15:20 | XMS_ITS | Encounter Summary ---
Author Organization [facility] Address [address] [place] [address] Care Team Providers Care Liner Man Name Role Phone Huseyin Zazueta MD Primary Care Provider [phone] Reason for Visit * Reason Comments Non-stress Test Encounter Details Date Type Department Care Team (Late st Contact Info) Description 07/09/2013 12:00 EST Nurse Only [facility] Obstetrics & Midwifery - [address] [phone] Unknown, Provider, Nurse, m uterine contractions, antepartum (Primary Dx) Social History Tobacco Use Types [...] as of this encounter Progress Notes * Cielo Rollins MD - 07/09/2013 1439 EST NST Report / Baseline Heart Rate: 130 Accelerations: present Movement: present Decelerations: absent Contractions: absent - no ctns when pt felt tighetning Interpretation: Reactive Cielo Rollins MD 07/09/2013 14:39 documented in this encounter Plan of Treatment Not on file documented as of this encounter Visit Diagnoses Diagnosis uterine contractions, antepartum- Primary Unspecified abnormality of labor, antepartum documented in this encounter Care Teams Liner Man Relationship Specialty Start Date End Date Huseyni Zazueta MD [address] [place] [address] PCP - General 07/16/09 documented as of this encounter
--- OUTSIDE RECORDS SUMMARY | 2024-05-02 15:20 | XMS_ITS | Encounter Summary ---
Author Organization [facility] Address [address] [place] [address] Care Team Providers Care Stem Roller Operator Name Role Phone Huseyin Zazueta MD Primary Care Provider [phone] Encounter Details Date Type Department Care Team (Latest Contact Info) Description 08/17/2013 10:20 EDT - 08/17/2013 23:59 EDT Hospital Encounter [facility] [address] [place] [address] Unknown, Provider, MD Discharge Disposition: Home or [...] on file documented as of this encounter Medications at Time of Discharge blood glucose (CONTOUR NEXT STRIPS) test strips [...] 3 02/27/2013 4 ketone urine reagent strip (KETOSTIX) Use 1 Strip as directed as needed (hyperglycemia) if BG is greater than 250 (for 2 consecutive readings), if ill, and/or if vomiting.. 50 Each 3 08/10/2013 4 ketone urine reagent strip (KETOSTIX)Indicati ons:Type [...] Code Departure Means Destination Home or Self Jail documented in this encounter Plan of Treatment Not on file documented as of this encounter Visit Diagnoses Not on filedocumented in this encounter Care Teams Stem Roller Operator Relationship Specialty Start Date End Date Huseyin Zazueta MD [address] [facility] [place] [address] PCP - General 07/16/09 documented as of this encounter
--- OUTSIDE RECORDS SUMMARY | 2024-05-02 15:20 | XMS_ITS | Encounter Summary ---
Author Organization [facility] Address [address] [place] [address] Care Team Providers Care Home Health Care Respiratory Therapist Name Role Phone Peter Zazueta MD Primary Care Provider Reason for Visit * Reason Comments Scheduled Induction Encounter Details Date Type Department Care Team (Late st Contact Info) Description 09/07/2013 13:35 EDT - 09/07/2013 23:15 EDT Hospital Encounter [facility] Mother/Baby Unit [address], [place] [id number] Danny Arzate MD [address] [facility], [address] [place] [address] Candace Salas MD [address] [place] [address] Diabetes mellitus in (Primary Dx); Supervision of other high-risk (V23.89) Discharge Disposition: Discharged to Other Facility Social History Tobacco Use Types Packs/Day Years [...] Sign Reading Time Taken Comments Blood Pressure 100/64 09/07/2013 1900 EDT Pulse 68 09/07/2013 1900 EDT Temperature 36.8 ??C (98.2 ??F) 09/07/2013 1900 EDT Respiratory Rate 18 09/07/2013 1900 EDT Oxygen Saturation 99% 09/07/2013 1612 EDT Inhaled Oxygen Concentration - - Weight 63 kg (138 lb 14.2 oz) 09/07/2013 1128 ED T Height 157.5 cm (5' 2.01) 09/07/2013 0958 EDT Body Mass Index 25.4 09/07/2013 0958 EDT documented in this encounter Discharge Summaries * Candace Salas MD - 09/07/2013 1826 EDT Department of [facility] MATERNAL DISCHARGE SUMMARY . . Maternal Name: Carolyn Sosa : 1980 Attending: Admission: 09/07/2013 Discharge: 09/07/2013 Reason for Admission: pLTCS for NRFA--> post-/post-op transport to [place] for indications 32 y/o 6 para 3023 at 37+0/7 weeks gestation. Castano. PAST HISTORY: Disorders diagnosed prior to current Medical Class: B Insulin Dependent Diabetes Comments: Type 1 Diabetes dx'ed in 2007. Gynecological Sexually Transmitted Diseases: None Obstetrical Comments: : 1999. Term spontaneous vaginal delivery, 6 pounds 10 ounces, female. G2: Elective . G3: 2002. Spontaneous vaginal delivery term infant, 6 pounds 8 ounces, female. G4: 2003. Spontaneous with no D+C. G5: 2004. Spontaneous vaginal delivery at term, 6 pounds 7 ounces, male. G6: Current. CURRENT HISTORY (HPI): Disorders diagnosed during current Medical Substance Abuse: None; Smoking: None; Sexually Transmitted Diseases: None Obstetrical Abnormal PAP Smear: ASCUS Comments: ASCUS with neg HPV 03/2012 : Other Complications: Ultrasound demonstrated evidence of a possible aneurysm on Vein of Salazar and what appeared to be a dilated third ventricle. Medications during current : None Maternal Labs: O+; Antibody screen: Neg; Rubella titer: Immune; Syphilis Screening: Neg; Gonorrhea Screening: Not Done; Chlamydia Screening: Not Done; Hepatitis B screen: Neg; Hepatitis C screen: Not Done; HIV: Neg LABOR INFORMATION Labor Onset: None - C/S without labor; Delivery Indication: Abnormal Testing GBS Status: Positive: culture at 35-37 weeks; GBS Prophylaxis: None Labor Analgesia: None; Labor & Delivery Medications: Antibiotics for section prophylaxis, Post Oxytocin VTX Continuous External FHRM; Abnormal FHR Patterns: Intermittent Late decelerations, Absent Variability, Amniotic Fluid Color: Clear; Duration Rupture of Membranes: <12 DELIVERY INFORMATION Section Delivery; Type of Section: Lower Segment Transverse Major Indication: Non-Reassuring Assessment; Delivery / Repair Anesthesia: Spinal; EBL: 500-1000 Placenta: Delivery Method: Spontaneous; Configuration: Normal; Placenta To Pathology Labor and Delivery Complications and/or Procedures: None INFORMATION Weight: 2640 grams Sex: Male Delivery Date: 09/07/2013 Delivery Time: 1437 Apgars: 61 , 95 : Uncomplicated Diet: carbohydrate consistent Activity: As tolerated, nothing per vagina for 6 weeks Discharge Medications / Dosage: Tylenol, Ibuprofen, Colace Other Problems / Discharge Diagnoses Follow-Up Plan for each Problem -Contraception: will follow up at 6wk PP visit - depression: Discussed s/sx of PP depression Condition at Discharge: Good Discharge Disposition: transport to [facility] (attending MD Dr. Brigid Hernandez) Shila Martinez MD 09/07/2013, 20:45 MFM ATTG I agree with description of discharge and maternal transport as described above. Candace Salas MD documented in this encounter Medications at Time of Discharge acetaminophen (TYLENOL) 325 mg tablet Take 1-2 Tabs by mouth every 4 hours. 09/07/2013 ibuprofen (MOTRIN) 400 mg tablet Take 1 Tab by mouth every 4 hours as needed for Pain. 09/09/2013 blood glucose (ONE TOUCH ULTRA TEST) test strips 12 Strips by misc (non-drug; combo route) route daily. ICD-9: 648.03 400 Each 11 01/26/2013 03/15/2014 calcium carbonate (TUMS) 200 mg calcium (500 mg) tablet, chewable Take 1-2 Tabs by mouth every 2 hours as needed for Other (heartburn). 09/07/2013 12/02/2015 docusate sodium (COLACE) 100 mg capsule Take 1 Cap by mouth 2 times daily as needed for Constipation. 09/07/2013 12/02/2015 glucagon (GLUCAGON EMERGENCY) 1 mg emergency injection kit Use as directed. 4 Kit 6 04/27/2013 12/31/2014 insulin aspart (NOVOLOG) 100 unit/mL injection Up to 80 units daily via insulin pump. 3 Vial 11 08/10/2013 02/19/2015 lancets (ONE TOUCH DELICA) 33 gauge Misc Use 15 lancet as directed daily. 1300 Each 3 02/27/2013 02/27/2014 VIT/IRON FUMARATE/FA ( ORAL) Take by mouth. 12/01 documented as of this encounter Ordered Prescriptions Prescription Sig Dispense Quantity Refills Last Filled Start Date End Date ibuprofen (MOTRIN) 400 mg tablet Take 1 Tab by mouth every 4 hours as needed for Pain. 09/09/2013 acetaminophen (TYLENOL) 325 mg tablet Take 1-2 Tabs by mouth every 4 hours. 09/07/2013 docusate sodium (COLACE) 100 mg capsule Take 1 Cap by mouth 2 times daily as needed for Constipation . 09/07/2013 12/02/2015 calcium carbonate (TUMS) 200 mg calcium (500 mg) tablet, chewable Take 1-2 Tabs by mouth every 2 hours as needed for Other (heartburn). 09/07/2013 12/02/2015 documented in this encounter Discharge Disposition Disposition Code Departure Means Destination Discharged to Other Facility documented in this encounter Progress Notes * Kirby Hatfield - 09/07/20132041 EDT Sw Note: pts transferred to [facility]. Mom is day 1 section who is requesting transfer to [facility] to be closer to her child. Ness to pick pt and her up at 2230 for transfer to [facility] Tomasz Hatfield, YOJANA 3918 * Emilia Gonzales, EDITH - 09/07/2013 1844 EDT 1835: Arrived on unit via . IV infusing. Pitocin 50cc/hr, D51/2NS @ 75cc/hr. Hampton in and draining well. PT eager to get to [place] to be with her baby who is being transported via air ambulance. 1899: PT did chem on her machine was 114. PT bolused with 60 carbs. 1944: TC from [facility] at [facility]. ; . Phase sheet and H&P faxed. [facility] will call when bed available. 1949: TC to [facility]. Informed of need for ambulance transfer to [facility]. He will get it set up and return call when set up. 1954: Spoke with Dr. Martinez. Updated on status of transport arrangements. Also informed of sl drainage on bulky dressing. 2029: Spoke w/ [facility] and the admitting attending is Dr. Leonila Hernandez. Awaiting RTC w/bed. 2099: Pt did own finger stick = 210. 2114: Spoke w/Tomasz GORMAN, [place] ambulance coming at 2230. 2134: Dr. Martinez at bedside to assess incision drainage. Dressing removed, steristrips applied. Bulkydressing applied w/elastoplast. 2218: In bed on phone waiting for ambulance. Pain 6/10. Declined IV meds at this time. Will give one time dose of Oxycodone 5 mg at time of transport. 0: Transport arrived. Pt stated she did her FS. 110. 2305: Oxycodone 5 mg PO given. 2310: Zofran 4 mg IVP. 2315: On stretcher. Transported to [place]. * Celeste Caldwell MD - 09/07/2013 1840 EDT R2 OB Note Patient's end of insulin regimen was: Basal Midnight 0.625 U/hr 0300 0.785 U/hr 0700 0.85 U/hr 2100 0.75 U/hr Bolus ratio 1:5.5 with meals Pre- insulin regimen was: Lantus 27U daily Novolog 1:8 with meals Discussion with Endocrinology Fellow advised regimen: Basal 0.65 U/hr Bolus 1:15 Target postprandial <180. Target fasting 100-130. Celeste Caldwell MD 09/07/2013 18:43 * Celeste Caldwell MD - 09/07/2013 1825 EDT Antepartum Summary 1 Patient Stamp Box Department of [facility] ANTEPARTUM SUMMARY . . Maternal Name: Carolyn Sosa : 1980 32 y/o 6 para 3023 at 37+0/7 weeks gestation. Castano JELANI: 09/28/2013 JELANI Basis: LMP Confirmed by Ultrasound PAST HISTORY: Disorders diagnosed prior to current Medical Class: B Insulin Dependent Diabetes Comments: Type 1 Diabetes dx'ed in 2007. Gynecological Sexually Transmitted Diseases: None Obstetrical Comments: : 1999. Term spontaneous vaginal delivery, 6 pounds 10 ounces, female. G2: Elective . G3: 2002. Spontaneous vaginal delivery term infant, 6 pounds 8 ounces, female. G4: 2003. Spontaneous with no D+C. G5: 2004. Spontaneous vaginal delivery at term, 6 pounds 7 ounces, male. G6: Current. CURRENT HISTORY (HPI pg. 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 Medications during current : None TESTING Maternal Labs: O+; Antibody screen: Neg; Rubella titer: Immune; Syphilis Screening: Neg; Gonorrhea Screening: Not Done; Chlamydia Screening: Not Done; Hepatitis B screen: Neg; Hepatitis C screen: Not Done; HIV: Neg Serum Screening: Multiple Marker Screening Not Done; Cystic Fibrosis Carrier Screening: Not Done Surveillance: Ultrasound House Staff/CNM Signature: Celeste Caldwell 09/07/2013 @ 1825 * Ana Pereyra RN - 09/07/2013 1801 EDT To NICU @ 1715 in W/C. Back to room now * Ana Pereyra RN - 09/07/2013 1642 EDT Pt's chem before leaving the OR @ 1530 was 87. She turned off her pump. @ 1630 was 47. Cranberry juice requested and taken. Celeste Caldwell. Informed. * Lu Leos - 09/07/2013 1546 EDT Met with patient's family, pt and significant other were in the OR still. Provided information on [employer], gas cards, contact info for social services aide in [place]. Pump rental information, I will call [employer] for authorization and get prescription to [facility]. Encourage patient and family to ask for additional supports if needed. Lu Leos, YOJANA #[id number] * Ana Pereyra, RN - 09/07/2013 1541 EDT Pt back to room from OR. * Caren Jarquin RN - 09/07/2013 1105 EDT 1100: Dr Salas in to discuss plan of care with pt. Including IOL today with potential for C/S if FHRtracing does not improve. documented in this encounter H&P Notes * Candace Salas MD - 09/07/2013 1412 EDT Department of Obstetrics History & Physical Admit Date: 09/07/2013 Chief Complaint: IOL for new dx of ?aneurysm of Vein of Salazar Provider: JOHAN HPI: Carolyn Sosa is a 32 y.o. @ 37w0d by 7+6wk U/S Was in U/S for follow-up growth scan. Ultrasound demonstrated evidence of a possible aneurysm on Vein of Salazar and what appeared to be a dilated third ventricle. This was a new finding today. Has been undergoing antepartum testing for T1DM, currently on insulin pump. Reports that she is otherwise doing well, good FM although has been feeling slightly less movements today. Occasional ctx, no LOF, no VB. Current Ob History c/b T1DM, currently on insulin pump for about a month. Current insulin pump settings Basal MN 0.625 0300 0.785 0700 0.85 2100 0.75 Bolus 1:5.5 Was not on insulin pump before . Pre- doses were Lantus 27U daily and Novolog 1:8 JELANI 09/28/2013 by 7+6wk U/S Blood Type O positive Antibody Screen Negative GBS POSITIVE Rubella Immune Varicella Protected Hep B Negative Hep C HIV Negative RPR Negative Gonorrhea Chlamydia Pap ASCUS with neg HPV 03/2012 Aneuploidy Testing Declined screening CF Testing Declined Ultrasound Date GA EFW MELIA Anatomy Dopplers 02/15/2013 7+6 Dating U/S 05/11/2013 20+0 351g Normal fluid Anterior placenta. WNL anatomy scan. Female. 06/07/2013 23+6 WNL echo 09/07/2013 37+0 2771g 18.38cm Past Ob History : 1999. Term spontaneous vaginal delivery, 6 pounds 10 ounces, female. G2: Elective . G3: 2002. Spontaneous vaginal delivery term infant, 6 pounds 8 ounces, female. G4: 2003. Spontaneous with no D+C. G5: 2004. Spontaneous vaginal delivery at term, 6 pounds 7 ounces, male. G6: Current. Past Medical History Past Surgical History Past Medical History Diagnosis Date ??? Kidney stones ??? hematuria & adbominal pain ??? Diabetes mellitus 2008 eye exam annually Past Surgical History Procedure Laterality Date ??? [place] tooth extraction Sheet [employer] History Social History No h/o abn paps. Remote h/o chlamydia. History Substance Use Topics ??? Smoking status: Current Every Day Smoker -- 0.25 packs/day ??? Smokeless tobacco: Never Used ??? Alcohol Use: No Comment: occasional Medications Allergies -Insulin pump Current insulin pump settings Basal MN 0.625 0300 0.785 0700 0.85 2100 0.75 Bolus 1:5.5 -PNV. Allergies Allergen Reactions ??? Levemir (Insulin Detemir) Swelling and Other (See Comments) Swelling and bruising and itching at site of injection Objective: Patient Vitals for the past 8 hrs: BP Pulse Resp Temp 09/07/13 0958 102/62 mmHg 98 16 36.3 ??C (97.3 ??F) GEN: NAD CV: RRR RESP: CTAB ABD: Soft, non-tender to palpation, uterus non-tender, EFW 7.5lbs by Jeremy's EXT: Non-tender FHT: 150 baseline, minimal variability, no accels, occasional ?late decels; Cat II tracing. TOCO: Irregular, q5-10 min SSE: Deferred SVE: 1-2/50/-2/Ceph Recent Labs 09/07/13 1042 WBC 12.10 HGB 13.6 HCT 39.6 MCV 86 PLT 198 Recent Labs 09/07/13 1050 GLUCOSEFINGE 51* Assessment/Problems/Plan: Carolyn Sosa is a 32 y.o. 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 AVSS. Cat II tracing. -Delivery planning: Given concerning finding of possible aneursym, will move towards delivery today. However, in conversation with Pediatrics, although Pedi Neurosurg is okay, uncertain if other interventions can be offered here at [facility]. Will explore possibility of transport to another center ([place] or [facility]) if necessary. -FWB: However, Cat II tracing, with minimal variability and occasional late decelerations. Will only consider transport if reassuring FHT. In the interim, will perform intrauterine resuscitation withfluid, O2 and repositioning. Repetitive lates, may need to consider CS due to NRFA. -T1DM: Continue insulin pump, and D5LR running. Patient slightly hypoglycemia prior to D5LR. Will recheck FSG as clinically indicated. -Global: Rh positive. GBS positive, PCN if moving towards vaginal delivery. Discussed with Dr. Salas.. Celeste Caldwell MD 09/07/2013 10:01 Addendum Time: 13:38 FHT continues to be Cat II, with late decels with ctx, minimal variability, and no response to scalp stimulation. Not stable for transport to another instutition. Coordinating with Peds, but likely moving towards delivery via section. NPO. Consent signed. Posterior placenta. T&S active. Starting Hct 39.6. Discussed with Dr. Salas. Celeste Caldwell MD 09/07/2013 13:38 MFM ATTG 32 yo @ 37 weeks whose PNC has been complicated by TI DM who was seen in ultrasound today and found to have a new diagnosis of a vein of Salazar. In addition to this finding, the 3rd ventricleis dilated. There is no evidence of hydrops (no effusions, ascites) and no cardiomegaly. Doppler studies are notable for an increases MCA PSV (1.7 MOM) and intermittent pulsations in the umbilical vein with absence of forward flow in the umbilical artery. Upon arrival to and , the FHT was notable for being category II with no response to scalp stimulation (1330). IMPRESSION: The concern at this time is that this fetus has a lesion with a high potential for congestive heart failure. Multiple discussions have been had with neonatalogy, here and pediatric neurointerventional radiology (Dr.Darren Gentile) at [facility] -- in the ideal situation, the optimal delivery location would be at a facility with pediatric interventional neuroradiology (which we do not have at [facility]). Because of the concern for the FHT and the current status ofthis fetus, I do not feel that it is prudent to transfer this patient to [facility] for delivery as there is a risk of severe / compromise/IUFD. Dr. Ceballos has expressed his concerns over optimal location of delivery and I fully appreciate the issue but at this time do not feel it in the best interest of the fetus to transport this patient to [place]. I have explained all of the issues to the family who understand and agree with the plan for delivery at [facility]. In view of the lack of response to scalp stimulation and the fact the patient is remote from delivery, we will proceed with delivery by urgent c/s. This decision was made at 1340. Candace Salas MD documented in this encounter Procedure Notes * Candace Salas MD - 09/07/2013 1235 EDT Department of [facility] DELIVERY SUMMARY . . Maternal Name: Carolyn Sosa : 1980 32 y/o 6 para 3023 at 37+0/7 weeks gestation. Castano. LABOR INFORMATION Labor Onset: None - C/S without labor; Delivery Indication: Abnormal Testing -- fetus with vein of salazar, increased MCA PSV, abnormal UA Doppler GBS Status: Positive: culture at 35-37 weeks; GBS Prophylaxis: None Labor & Delivery Medications: Antibiotics for section prophylaxis, Post Oxytocin VTX Continuous External FHRM; Abnormal FHR Patterns: Intermittent Late decelerations, Absent Variability, no response to scalp stimulation Amniotic Fluid Color: Clear; Duration Rupture of Membranes: <12 DELIVERY INFORMATION Section Delivery Type of Section: Lower Segment Transverse Major Indication: Non-Reassuring Assessment; Delivery / Repair Anesthesia: Spinal EBL: 500-1000 Placenta: Delivery Method: Spontaneous; Configuration: Normal; Placenta to pathology Labor and Delivery Complications: None INFORMATION Weight: 2640 grams Sex: Male Delivery Date: 09/07/2013 Delivery Time: 1437 Apgars: 61, 95 Peds Present Admitting Nursery: NICU Nuchal Cord: x1; Placental Cord Insertion: Normal; Umbilical Cord Vessels: Three UA Testing: pH: 7.11; pCO2: 90; pO2: 10; Base Deficit: 4.4; UV pH: 7.25 DELIVERY PERSONNEL Delivery Provider: Candace Salas Primary Nurse: Mervat Norris Service / Group: [facility] Resident 1: Celeste Caldwell Provider: Candace Salas [facility] Staff/[facility] Signature: Celeste Caldwell 09/07/2013 @ 1825 Attending Attestation: Attending Signature:Candace Salas MD Date: I was present and scrubbed for the entire procedure. Candace Salas MD documented in this encounter Nursing Notes * OFFICE MACHINES TEACHER, SCAN 2 - 09/12/2013 1413 EDT documented in this encounter OR Notes * OR Surgeon - Candace Salas MD - 09/08/2013 0549 EDT OPERATIVE REPORT SERVICE DATE: 09/07/2013 SURGEON: Candace Salas MD LIME KILN TENDER: Celeste Calwdell [facility] PREOPERATIVE DIAGNOSES: 1. Intrauterine at 37 weeks and 0 days. 2. New findings of a question of aneurysm of the Vein of Salazar 3. Nonreassuring assessment. 4. Type 1 diabetes. POSTOPERATIVE DIAGNOSES: 1. Intrauterine at 37 weeks and 0 days. 2. New findings of a question of aneurysm of the Vein of Salazar 3. Nonreassuring assessment. 4. Type 1 diabetes. 5. Delivered. PROCEDURE: Low transverse section via Pfannenstiel incision with double-layer closure. ANESTHESIA: Spinal. FINDINGS: 1. Clear fluid on amniotomy. 2. Viable male in the cephalic position, born at 1737 with Apgars of 6 and 9 at 1 and 5 minutes, respectively. Weight 2640 g. Arterial cord pH was 7.11 with a base deficit of 4.4. 3. Peds at delivery. 4. Normal placenta with 3-vessel cord. 5. Normal uterus, tubes and ovaries. BLOOD LOSS: 800 mL. FLUIDS: 1500 mL LR. URINE OUTPUT: 200 mL. SPECIMENS: Cord gases, placenta. DRAINS, PACKS, FOREIGN OBJECTS RETAINED: Hampton, draining clear yellow urine at end of case. COMPLICATIONS: None. CONDITION: Good. DISPOSITION: Birthing room 7, then [place] [id number]. INDICATIONS: This is a 32-year-old 6, now para 4-0-2-4 who was sent up from ultrasound at 37 weeks' gestation and was found to have a new diagnosis of a aneurysm Vein of Salazar versus arteriovenous malformation. Her had been complicated by type 1 diabetes, maintained on an insulin pump. In addition to a new diagnosis of Vein of Salazar, there was evidence of a 3rd ventricle; however, there was no evidence of hydrops. Doppler studies were notable for an increased MCA(1.7 multiples of the median) and intermittent pulsations in the umbilical vein and the absence of forward flow in the umbilical artery. Additionally, up on labor and delivery her heart tracing was notable for being category 2 in the setting of minimal to absent variability and occasional spontaneous late decelerations with no response to scalp stimulation. There was concern at that time for the potential for congestive heart failure. Multiple discussions were had with neonatology and pediatric neuro interventional radiology at [facility], the ideal plan would have been for a transfer of the patient to [facility]; however, in the setting of non-reassuring heart tracing, it was not thought that the patient was stable for transport given the severe risk forfetal or compromise or IUFD. Ultimately, in the setting of non-reassuring assessment, decision was made to proceed with [facility], [facility] N[facility]ATIVE: Consent was obtained from the patient. The patient was taken to the OR with an IV in place. The patient was given spinal anesthetic. A Hampton catheter was placed. The patient was then prepped and draped in normal sterile fashion in the dorsal supine position with leftward tilt. Anesthesiawas found to be adequate with an Allis test. A Pfannenstiel skin incision was made with the scalpeland carried through to the underlying layer of fascia. Fascia was incised in the midline. The fascial incision was extended laterally with the Dhaliwal scissors. The underlying rectus muscles were dissected off. The rectus muscles were in the midline; the peritoneum was entered. The bladder blade was placed. The vesicouterine peritoneum was grasped with pickups and entered sharply with the Metzenbaum scissors and this incision was extended laterally; the bladder flap was created digitally. The bladder blade was repositioned. A horizontal incision was made in the lower uterine segment and this incision was extended laterally bluntly. The infant's head was delivered atraumatically and the remainder of the infant's body was delivered without incident. The cord was cut and clamped and the infant was handed off to the awaiting pediatricians. A segment of cord was collected for cord gases. The placenta was then removed with gentle traction and massage of the fundus. The uterus was exteriorized and the cavity was cleared of all clot and debris. The hysterotomy was repaired with 0 Vicryl in a running locked fashion. A 2nd suture of 0 Vicryl was used for imbrication and good hemostasis was noted. The uterus was then returned to the abdomen. The gutters were suctioned and cleared ofclots. The fascia was reapproximated with 0 Vicryl in a running fashion. The skin was closed with 3-0 Monocryl on a curved needle. The patient tolerated the procedure well. Sponge, lap and needle counts were correct. Two g of Ancef were given prior to the procedure. The patient was taken to the recovery room in stable condition. Dr Candace Salas was present and scrubbed throughout the procedure. Unless otherwise noted, there were no complications, no blood loss, no cultures obtained, no specimens removed, and no drains retained. I was present and scrubbed for the entire procedure as described above. Candace Salas MD 06 35 PM / Celeste Caldwell [facility] kn Confirmation: [id number] Dictation ID: [id number] cc: Candace Salas MD * Anesthesia Procedure Notes - OFFICE MACHINES TEACHER, FABIAN 2 - 09/07/2013 1551 EDT documented in this encounter Miscellaneous Notes * Plan of Care - Hayley Armendariz MD - 09/07/2013 1636 EDT Endocrinology Consult Service Holding Note Just got called about Carolyn Sosa. Admitted this morning at 37 weeks. Was in U/S for follow-up growth scan. Ultrasound demonstrated evidence of a possible aneurysm on Vein of Salazar and what appeared to be a dilated third ventricle. This was a new finding today. Just came back from OR s/p . Continues to be on insulin pump. BG before leaving OR reported 87 mg/dl @ 1530. She turned off her pump. @ 1630 was 47. Cranberry juice requested and taken. Diabetes History: Antepartum type 1 diabetes mellitus, diagnosed Jul 2009 Last seen in [facility]: 07/31/13 Prior to doses: Lantus 27 units daily, Novolog 1:8 Started on pump during . Last pump settings 08/30/13 Basals: time ratio 00 0.625 03 0.725 07 0.85 21 0.75 23 0.725 total 18.9 Carb ratios: time ratio 00 5.5 Correction Factor time ratio 00 40 Target time ratio 00 80-120 Active Insulin 4 hrs Recommendations: - Agree with suspending insulin pump as done by the patient - Rule of 15 for correction of hypoglycemia (15 grams carbs, recheck BG in 15 mins, if still < 70 take 15 grams more till BG > 90-100 mg/dl) Avoid over correction. Restart pump once BG > 90 mg/dl. (prefer not to keep it off for longer than 2 hours given she has type 1 diabetes) - When restarts pump, use following settings Basal: 0.65 units/hour [Taking into consideration her pre- dose of Lantus 27 units daily. Recommended 20% reduction i.e. Estimated new rate = 0.8 - 0.9 units/hour but backing off even more with current BG/hypoglycemia. Also, noted that last basal setting during was total basal 18.9 units/day. 20% reduction with that rate will be around 0.65 units/hour. Will back off even more if needed / continues to run low] I:C Ratio: 1:15 [Prior to was 1:8] Correction Factor: 1/100 for BG > 150 - Check 0200 am BG as well - Expect to titrate up these settings around Post day 3-4. Formal consult to follow in AM. Please page me if you have any questions. Hayley Armendariz MD 09/07/2013 16:56 * Brief Op Note - Celeste Caldwell MD - 09/07/2013 5807 EDT Brief op note Date: 09/07/2013 Attending: Candace Salas MD Photocopy Operator: Celeste aCldwell MD Pre-op diagnosis: 1. IUP @ 37w0d 2. 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 NRFA 4. T1DM Post-op diagnosis: Same, delivered Procedure: Low transverse section via Pfannenstiel incision with double layer uterine closure Anesthesia: Spinal Findings: 1. Clear fluid on amniotomy 2. Male in the cephalic position, born at 1437, with APGARs of 6 and 9 at 1 and 5 minutes respectively, weighing 2640g, with cord arterial pH of 7.11 and BD of 4.4 3. Peds at delivery 4. Normal placenta, with 3 vessel cord 5. Normal uterus, tubes, and ovaries Blood loss: 800cc Fluids: 1500cc LR Urine output: 200cc Specimens: Cord gases, placenta Drains/Packs/Foreign object retained: [place], draining clear yellow urine at end of case Complications: None Condition: Good Disposition: Birthing Room 7 -> [facility] 5 See dictated operative report for more details Celeste Caldwell MD 09/07/2013 15:48 * Anesthesia Pre-Eval - Stella Wong MD - 09/07/2013 1129 EDT Obstetric Anesthesia Consult Name: CAROLYN SOSA : 1980 Date: 09/07/2013 Age: 32 y.o. GA: 37w0d Sericulturist: Candace Salas MD Obstetric History: Obstetric History Complications during : Complicated By: Complicated by: DM-1; flat trace Allergies Allergen Reactions ??? Levemir (Insulin Detemir) Swelling and Other (See Comments) Swelling and bruising and itching at site of injection Anesthetic History: Anesthesia History Previous Patient or Family Problems with Anesthesia: None Airway Evaluation: Airway Evaluation Mallampati: 2 Mouth Opening: Normal Jaw Thrust: Normal Thyro-Mental Distance: Normal Neck Eval: ROM Normal Teeth: (partial denture) Review of Systems: Smoker: No History of Respiratory Infections: No Asthma: No Heart Murmur: No High Blood Pressure: No Angina/Palpitations: No Blood Vessel Disease: No Neurological Disease: No Muscular Degeneration: No Backpain/Neckpain: No Reflux/Heartburn/Hiatial Hernia: Yes GI Additional Info: Controlled Liver Disease: No Thyroid Disease: No Kidney Disease: Yes Type of Kidney Disease: Kidney Stones Diabetes: Yes Onset of Diabetes: Type I (has insulin pump) Anemia: No Bleeding Disorders: No Previous Anesthesia for Childbirth: Yes Previous Types of Anesthesia: Spinal;Epidural Infectious Disease: No Past Surgical History Procedure Laterality Date ??? [place] tooth extraction Current Facility-Administered Medications Medication Route Frequency ??? acetaminophen (TYLENOL) tablet 650 mg oral PRN ??? carboprost (HEMABATE) intramuscular injection 250 mcg intramuscular PRN ??? ibuprofen (MOTRIN) tablet 400 mg oral PRN ??? lactated ringers (LR) infusion intravenous CONTINUOUS ??? methylergonovine (METHERGINE) injection 200 mcg intramuscular PRN ??? misoprostol (CYTOTEC) tablet 200 mcg buccal PRN ??? misoprostol (CYTOTEC) tablet 800 mcg rectal PRN ??? sodium chloride 0.9 % flush 3 mL intravenous Q8H No Facility-Administered Medications for the 09/07/13 encounter (Hospital Encounter) with Candace Salas MD. Outpatient Prescriptions Marked as Taking for the 09/07/13 encounter (Hospital Encounter) with Candace Salas MD Medication Sig Dispense Refill ??? insulin aspart (NOVOLOG) 100 unit/mL injection Up to 80 units daily via insulin pump. 3 Vial 11 ??? lancets (ONE TOUCH DELICA) 33 gauge Misc Use 15 lancet as directed daily. 1300 Each 3 ??? VIT/IRON FUMARATE/FA ( ORAL) Take by mouth. Vital Signs: BP 102/62 Pulse 98 Temp(Src) 36.3 ??C (97.3 ??F) (Tympanic) Resp 16 Ht 157.5 cm (62.01) Wt 63 kg (138 lb 14.2 oz) BMI 25.4 kg/m2 LMP 12/22/2012 Labs: Lab Results Component Value Date WBC 12.10 09/07/2013 HGB 13.6 09/07/2013 HCT 39.6 09/07/2013 MCV 86 09/07/2013 PLT 198 09/07/2013 NA 134* 06/20/2013 NA 135* 07/17/2009 K 3.6 06/20/2013 K 4.1 07/17/2009 CL 104 06/20/2013 CL 101 07/17/2009 CO2 20* 06/20/2013 CO2 27 07/17/2009 BUN 4* 06/20/2013 BUN 12 07/17/2009 CREATININE 0.38* 06/20/2013 CREATININE 0.51* 07/17/2009 Blood/Cultures: ASA Classification: Grade III Plan: epidural, general, spinal mode(s) of anesthesia were discussed. Risks discussed included: Bleeding, Infection, Nerve Injury, Spinal headaches, low blood pressures with underperfusion, high spinals, hematomas, failure and replacement. All of Carolyn Sosa's questions were answered to her satisfaction. Unless otherwise noted, follow standard anesthesia pre-operative protocol. STELLA WONG MD 09/07/2013 Cosigned by Luis Antonio Gonzáles MD at 09/12/2013 13:47 EDT * Plan of Care - Arabella Kramer, RN - 09/07/2013 1012 EDT 1012: Pt sent over from [facility] office after ultrasound finding of possible posterior AV malformation (?). Pt a type 1 DM since 2007 has been followed by [facility] and endocrine. Pt states she is not feeling the baby moving that often today, CAT 2 tracing, min variability with no accels or decels at this time. Pt denies any bleeding or leaking. Reports occasional UC's that she is aware of. Here with FOB, mother and FOB's father. Dr. Caldwell in now assessing pt. Plan is to induce, pt plans for an epidural and to breastfeed. 1047: IV started with 18 g in right wrist. LR up and running, labs drawn and sent. Pt waiting to speak with attending. 1140: Tracing improved enough to proceed with scheduled c/s. Dr. Salas wanting to proceed with IOL, thinking of hampton balloon cath. Wanting to wait for now to watch tracing but at this time plan is for IOL vs c/s. Pt aware of and agrees with plan at this time. Spoke with endocrine, Dr. Caldwell asked to speak with pt regarding pump settings and insulin requirements during labor. 1238: Pt put onto left side, Dr. Caldwell aware of tracing. O2 per FM applied. 1307: Repositioned onto right side, O2 on. 1318: Dr. Caldwell in now to perform scalp stim, neg scalp stim. Dr. Salas over to NICU to speak with Gaston Cabrera about where and when to deliver. 1337: Dr. Salas in now speaking with pt, wants to deliver pt now by c/s, does not feel pt can be transported to [place] for delivery with current tracing. 1355: Report to Dusty Norris RN who will be assuming care of pt in the OR. documented in this encounter Plan of Treatment Not on file documented as of this encounter Procedures Procedure Name Priority Date/Time Associated Diagnosis Comments GLUCOSE, GLUCOMETER Routine 09/07/2013 1 8:16 EDT BLOOD GASES, CORD VENOUS STAT 09/07/2013 14:32 EDT BLOOD GASES, CORD ARTERIAL STAT 09/07/2013 14:32 EDT GLUCOSE, GLUCOMETER Routine 09/07/2013 1 0:50 EDT COMPLETE BLOOD COUNT STAT 09/07/2013 10:42 EDT TYPE AND SCREEN STAT 09/07/2013 10:42 EDT SURGICAL PATHOLOGY Routine 09/07/2013 7: 40 EDT documented in this encounter Results * (ABNORMAL) GLUCOSE, GLUCOMETER (09/07/2013 18:16 EDT) Glucose, Fingerstick 66(L) 70 - 100 mg/dl [facility] Hydraulic Tester ID [id number] [facility] Comment:Test Performed by [facility] 09/07/2013 18:1 6 EDT 09/07/2013 18:18 EDT Candace Salas MD CHEMISTRY & BLOOD GAS ORDERA BLES Final Result Performing Organization Address [facility] de Phone Number [facility] [address] [place] [address] * (ABNORMAL) BLOOD GASES, CORD VENOUS (09/07/2013 14:32 EDT) pH, Cord blood kurt 7.25 7.25 - 7.45 [facility] PCO2, Cord blood 53 mmHg [facility] PO2, Cord bld kurt 28 17 - 41 mmHg [facility] tCO2, Cord blood 24(H) 14 - 22 mEq/L [facility] Base Deficit 5.6 [facility] 09/07/2013 14:3 2 EDT 09/07/2013 14:51 EDT Candace Salas MD GEN LAB UNIT COLLECT ORDERAB LES Final Result Performing Organization Address [facility] Co de Phone Number [facility] [address] [place] [address] * (ABNORMAL) BLOOD GASES, CORD ARTERIAL (09/07/2013 14:32 EDT) pH, Cord blood art 7.11(L) 7.18 - 7.38 [facility] PCO2, Cord blood 90 mmHg [facility] PO2, Cord bld art <10 6 - 30 mmHg [facility] tCO2, Cord blood 31(H) 14 - 22 mEq/L [facility] Base Deficit 4.4 [facility] Blood specimen (specimen) 09/07/2013 14:32 EDT 09/07/2013 14:50 EDT Candace Salas MD GEN LAB UNIT COLLECT ORDERAB LES Final Result Performing Organization Address [facility] de Phone Number [facility] [address] [place] [address] * (ABNORMAL) GLUCOSE, GLUCOMETER (09/07/2013 10:50 EDT) Glucose, Fingerstick 51(L) 70 - 100 mg/dl [facility] Hydraulic Tester ID [id number] [facility] Comment:Test Performed by [facility] 09/07/2013 10:5 0 EDT 09/07/2013 10:52 EDT Candace Salas MD CHEMISTRY & BLOOD GAS ORDERA BLES Final Result Performing Organization Address [facility] Co de Phone Number [facility] [address] [place] [address] * TYPE AND SCREEN (09/07/2013 10:42 EDT) ABO O [facility] Rh Factor Positive [facility] Antibody Screen Negative [facility] Comment:SPECIMEN EXPIRES 09/10 AT 23:59 Blood specimen (specimen) 09/07/2013 10:42 EDT Celeste Caldwell MD BLOOD BANK TESTS Final Result Performing Organization Address [facility] Co de Phone Number [facility] [address] [place] [address] * HEMAGRAM (09/07/2013 10:42 EDT) WBC 12.10 4.0 - 12.4 K/cmm [facility] RBC 4.58 3.86 - 5.04 M/cmm [facility] Hemoglobin 13.6 11.6 - 15.2 gm/dl [facility] HCT 39.6 34.9 - 44.4 % [facility] MCV 86 81 - 98 fl [facility] MCH 29.6 26.7 - 33.3 pg [facility] MCHC 34.3 32.1 - 35.9 gm/dl [facility] PLT 198 141 - 320 K/cmm [facility] RDW-CV 14.1 11.7 - 14.6 % [facility] Blood specimen (specimen) 09/07/2013 10:42 EDT 09/07/2013 10:58 EDT us Celeste Caldwell MD HEMATOLOGY & PF4 ORDERABLES Thu moffett Result [facility] [address] [place] [address] * SURGICAL PATHOLOGY (09/07/2013 7:40 EDT) Pathology Report: SURGICAL PATHOLOGY REPORT Reports generated via electronic interface contain original data; however they are lacking the format of the original report. Caution should be taken when reading/interpreti ng unformatted reports. Name: ? CAROLYN SOSA ? Accession #: ? [id number] ? : ? 1980 (Age: 32) ??F ? Collect Date: ? 09/07/2013 ? Location: ? [facility]05 ? Receive Date: ? 09/08/2013 ? Provider: CANDACE SALAS MD Copy to: PETER SUAREZ MA [facility] DANNY ARZATE MD ? Final Pathologic Diagnosis: ? TERM CASTANO PLACENTA: - membranes and umbilical cord with no abnormalities. - Placental disc, small for gestation, with no histologic abnormalities. Document reviewed and electronically signed by: KAYLAN RICO MD Report ??Date: 09/11/2013 13:30 By the signature above, the attending physician certifies that he/she has personally conducted a gross and/or microscopic examination of the described specimens and rendered or confirmed the above diagnosis. 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 Received fresh labelled with proper patient identification (initials H, S) and not otherwise specified is a castano placenta (19.8 x 14.5 x 2.4 cm) with attached umbilical cord (7.8 cm in length x 0.6 in diameter) and membranes, as well as one detached segment of umbilical cord (28 cm in length x 0.6 cm in diameter. After the cord and membranes are removed, the ovoid placental disc weighs 400 g. ? The membranes are pink-alonzo and translucent and insert at the disc margin. The umbilical cord is white, shiny and coiled, with three vessels, and inserts centrally, 6.5 cm from the nearest disc margin. The surface is blue-alonzo with the usual arborizing vasculature with a minimal amount of subchorionic fibrin deposits. The maternal surface is red-brown with intact and complete cotyledons and a small amount of loosely attached blood clot. Approximately 80% of the cotyledons on the maternal surface has a thin white layer. ??Sectioning reveals a dark red, spongy cut surface with no nodules or discrete lesions identified. ? [employer] sections are submitted as follows: BLOCK CARVAJAL 1- ??membrane rolls 2- ??umbilical cord 3- ??full thickness section with subchorionic fibrin 4- ??full thickness section with white fibrous layer on maternal side Rosaura TITUS 09/10/2013 10:23 AM End of Report [facility] 09/07/2013 7:40 EDT 09/08/2013 7:40 EDT us Candace Salas MD PATHOLOGY ORDERABLES Final R esult [facility] [address] [place] [address] documented in this encounter Visit Diagnoses Diagnosis Diabetes mellitus in - Primary Diabetes mellitus of mother, complicating , childbirth, or the puerperium, unspecified as to episode of care Supervision of other high-risk (V23.89) Supervision of other high-risk documented in this encounter Administered Medications Inactive Administered Medications - up to 3 most recent administrations Medication Order MAR Action Action Date Dose Rate Site acetaminophen (TYLENOL) tablet 325-650 mg 325-650 mg, oral, EVERY 4 HOURS, 12 doses, First dose on Tue09/07/13 at 2000, Last dose on Tue09/09/13 at 1600, Routine, On Unit Given 09/07/2013 20:02 EDT 650 mg ceFAZolin (ANCEF) syringe 2 g 2 g, intravenous, Administer over 10 Minutes, PRE-OP ONCE, 1 dose, On Tue09/07/13 at 1345, Routine Given by Other 09/07/2013 14:30 EDT 2 g dextrose 5 % and 0.45 % NaCl with KCl 20 mEq/L infusion at 100 mL/hr, intravenous, CONTINUOUS, Starting on Tue09/07/13 at 1930, Until Tue09/08/13 at 0118, Routine, On Unit Rate Change 09/07/2013 19:30 EDT 100 mL/hr dextrose 5 % in lactated ringers infusion at 200 mL/hr, intravenous, CONTINUOUS, Starting on Tue09/07/13 at 1200, Until Tue09/07/13 at 1914, Routine New Bag 09/07/2013 11:08 EDT 200 mL/hr ibuprofen (MOTRIN) tablet 400 mg 400 mg, oral, EVERY 4 HOURS, 12 doses, First dose on Tue09/07/13 at 2000, Last dose on Tue09/09/13 at 1600, Routine, On Unit Given 09/07/2013 21:22 EDT 400 mg lactated ringers (LR) infusion 150-200 mL/hr, intravenous, CONTINUOUS, Starting on Tue09/07/13 at 1045, Until Tue09/07/13 at 1132, Routine New Bag 09/07/2013 11:08 EDT 200 mL/hr 200 mL/hr New Bag 09/07/2013 10:46 EDT 200 mL/hr 200 mL/hr ondansetron (PF) (ZOFRAN) injection 2-4 mg 2-4 mg, intravenous, EVERY 6 HOURS PRN, Starting on Tue09/07/13 at 1914, Until 09/08/13 at 0118, Nausea, Routine, On Unit Given 09/07/2013 23:14 EDT 4 mg oxyCODONE (ROXICODONE) immediate release tablet 5 mg 5 mg, oral, NOW X1, 1 dose, On Tue09/07/13 at 2215, Routine Given 09/07/2013 23:03 EDT 5 mg oxyCODONE (ROXICODONE) immediate release tablet 5-10 mg 5-10 mg, oral, EVERY 4 HOURS PRN, Starting on Tue09/07/13 at 1914, Until 09/08/13 at 0118, Pain, Routine, On Unit Given 09/07/2013 20:03 EDT 10 mg oxyCODONE-acetaminophen (PERCOCET) 5-325 mg per tablet 1-2 Tab 1-2 Tablet, oral, PRN, 2 doses, Starting on Tue09/07/13 at 1549, Until Tue09/07/13 at 1833, Pain, Routine, Recovery (only) Given 09/07/2013 16:18 EDT 2 Tablets oxytocin in lactated ringers 30 units/500 ml 200 mL/hr, intravenous, CONTINUOUS, Starting on Tue09/07/13 at 1615, Until Tue09/07/13 at 1714, Routine Rate Change 09/07/2013 15:00 EDT 200 mL/hr 200 mL/hr oxytocin in lactated ringers 30 units/500 ml 135 mL/hr, intravenous, CONTINUOUS, Starting on Tue09/07/13 at 1715, Until Tue09/07/13 at 1814, Routine Rate Change 09/07/2013 16:00 EDT 135 mL/hr 135 mL/hr sodium citrate-citric acid (BICITRA) 500-334 mg/5 mL solution 30 mL 30 mL, oral, Once (Without Time Specified), 1 dose, Starting on Tue09/07/13 at 1329, Until Tue09/07/13 at 1402, Routine Given 09/07/2013 14:02 EDT 30 mL documented in this encounter Discontinued Medications Medication Sig Discontinue Reason Start Date End Da te blood glucose (CONTOUR NEXT STRIPS) test strips Use 10 Strips as directed daily. Error 08/10/2013 09/07/2013 lactulose (CHRONULAC) 10 gram/15 mL solution Take 15 mL by mouth daily as needed for Other (constipation). 05/25/2013 09/07/2013 docusate sodium (COLACE) 100 mg capsule Take 1 Cap by mouth 3 times daily as needed for Constipation. 05/25/2013 09/07/2013 insulin glargine (LANTUS SOLOSTAR) 100 unit/mL (3 mL) injection pen Inject into 30 units daily. Titrate up during . Up to 50 units daily. 02/27/2013 09/07/2013 insulin pen needles 31G x 5/16 (BD INSULIN PEN NEEDLE UF SHORT) Use 5 pen needles as directed daily. 02/27/2013 09/07/2013 insulin aspart (NOVOLOG FLEXPEN) 100 unit/mL injectable pen Inject into skin with meals up to 50 units daily. Titrating up during . 02/27/2013 09/07/2013 ketone urine reagent strip (KETOSTIX)Indications:T ype I (juvenile type) diabetes mellitus without mention of complication, not stated as uncontrolled Use 1 Strip as directed as needed. if blood glucose is greater than 250 (for 2 consecutive readings), if ill, and/or if vomiting. 05/09/2012 09/07/2013 documented as of this encounter Active and Recently Administered Medications Times are shown in EDT. Scheduled Medication Order 09/05/2013 09/06/2013 09/07/2013 acetaminophen (TYLENOL) tablet 325-650 mg 325-650 mg, oral, EVERY 4 HOURS, 12 doses, First dose on Tue09/07/13 at 2000, Last dose on Tue09/09/13 at 1600, Routine, On Unit 2001 (Given - Provid er: Emilia Gonzales RN) ceFAZolin (ANCEF) syringe 2 g (COMPLETED) 2 g, intravenous, Administer over 10 Minutes, PRE-OP ONCE, 1 dose, On Tue09/07/13 at 1345, Routine 1430 (Given by Other - Provider: Jackelyn Norris RN) ibuprofen (MOTRIN) tablet 400 mg (CANCELED) 400 mg, oral, EVERY 4 HOURS, 12 doses, First dose on Tue09/07/13 at 2000, Last dose on Tue09/09/13 at 1600, Routine, On Unit 2122 (Given - Provid er: Emilia Gonzales RN) oxyCODONE (ROXICODONE) immediate release tablet 5 mg (COMPLETED) 5 mg, oral, NOW X1, 1 dose, On Tue09/07/13 at 2215, Routine 2303 (Given - Provid er: Emilia Gonzales RN) sodium citrate-citric acid (BICITRA) 500-334 mg/5 mL solution 30 mL (COMPLETED) 30 mL, oral, Once (Without Time Specified), 1 dose, Starting on Tue09/07/13 at 1329, Until Tue09/07/13 at 1402, Routine 1402 (Given - Provid er: Arabella Kramer RN) Continuous Medication Order 09/05/2013 09/06/2013 09/07/2013 dextrose 5 % and 0.45 % NaCl with KCl 20 mEq/L infusion (CANCELED) at 100 mL/hr, intravenous, CONTINUOUS, Starting on Tue09/07/13 at 1930, Until Tue09/08/13 at 0118, Routine, On Unit 1930 (Rate Change - Provider: Emilia Gonzales RN) dextrose 5 % in lactated ringers infusion (CANCELED) at 200 mL/hr, intravenous, CONTINUOUS, Starting on Tue09/07/13 at 1200, Until Tue09/07/13 at 1914, Routine 1108 (New Bag - Prov ider: Arabella Kramer RN) lactated ringers (LR) infusion (CANCELED) 150-200 mL/hr, intravenous, CONTINUOUS, Starting on Tue09/07/13 at 1045, Until Tue09/07/13 at 1132, Routine 1046 (New Bag - Prov ider: Arabella Kramer, EDITH)1108 (New Bag - Provider: Caren Jarquin RN)1129 (Canceled Entry - Provider: Arabella Kramer RN) oxytocin in lactated ringers 30 units/500 ml(Linked Group 1) 200 mL/hr, intravenous, CONTINUOUS, Starting on Tue09/07/13 at 1615, Until Tue09/07/13 at 1714, Routine 1500 (Rate Change - Provider: Ana Pereyra RN) oxytocin in lactated ringers 30 units/500 ml(Linked Group 1) 135 mL/hr, intravenous, CONTINUOUS, Starting on Tue09/07/13 at 1715, Until Tue09/07/13 at 1814, Routine 1600 (Rate Change - Provider: Ana Pereyra RN) PRN Medication Order 09/05/2013 09/06/2013 09/07/2013 calcium carbonate (TUMS) 200 mg calcium (500 mg) per chewable tablet tablet, chewable 1-2 Tab 1-2 Tablet, oral, EVERY 2 HOURS PRN, Starting on Tue09/07/13 at 1914, Until 09/08/13 at 0118, Heartburn, Indigestion, Routine, On Unit docusate sodium (COLACE) capsule 100 mg 100 mg, oral, 2 TIMES DAILY PRN, Starting on Tue09/07/13 at 1914, Until 09/08/13 at 0118, Constipation, Routine, On Unit ibuprofen (MOTRIN) tablet 400 mg 400 mg, oral, EVERY 4 HOURS PRN, Starting on Tue09/09/13 at 2000, Until 09/08/13 at 0118, Pain, Routine, On Unit ondansetron (PF) (ZOFRAN) injection 2-4 mg (CANCELED) 2-4 mg, intravenous, EVERY 6 HOURS PRN, Starting on Tue09/07/13 at 1914, Until 09/08/13 at 0118, Nausea, Routine, On Unit 2314 (Given - Provid er: Emilia Gonzales RN) oxyCODONE (ROXICODONE) immediate release tablet 5-10 mg (CANCELED) 5-10 mg, oral, EVERY 4 HOURS PRN, Starting on Tue09/07/13 at 1914, Until 09/08/13 at 0118, Pain, Routine, On Unit 2003 (Given - Provid er: Emilia Gonzales RN) oxyCODONE-acetaminophen (PERCOCET) 5-325 mg per tablet 1-2 Tab (CANCELED) 1-2 Tablet, oral, PRN, 2 doses, Starting on Tue09/07/13 at 1549, Until 09/07/13 at 1833, Pain, Routine, Recovery (only) 1618 (Given - Provid er: Ana Pereyra RN) Linked Groups Order Group 1: oxytocin in lactated ringers 30 units/500 mlJump to med 200 mL/hr, intravenous, CONTINUOUS, Starting on Tue09/07/13 at 1615, Until Tue09/07/13 at 1714, Routine Followed by oxytocin in lactated ringers 30 units/500 mlJump to med 135 mL/hr, intravenous, CONTINUOUS, Starting on Tue09/07/13 at 1715, Until Tue09/07/13 at 1814, Routine documented in this encounter Orders Medications Ordered That Kelvin ht Not Have Been Administered Count Last Ordered Date First Ordered Date acetaminophen (TYLENOL) tablet 325-650 mg 1 09/07/2013 acetaminophen (TYLENOL) tablet 650 mg 1 09/2013 atropine 0.1 mg/mL syringe 0.4 mg 1 014 calcium carbonate (TUMS) 200 mg calcium (500 mg) per chewable tablet tablet, chewable 1-2 Tab 1 09/07/2013 carboprost (HEMABATE) intram uscular injection 250 mcg 1 09/07/2013 docusate sodium (COLACE) capsule 100 mg 1 0 09/07/2013 HYDROmorphone (PF) (DILAUDID ) 1 mg/mL injection 0.2 mg 1 09/07/2013 ibuprofen (MOTRIN) tablet 400 mg 2 09/08/19 14 lactated ringers (LR) infusion 1 09/07/2013 lansinoh HPA lanolin 1 09/07/2013 methylergonovine (METHERGINE ) injection 200 mcg 1 09/07/2013 misoprostol (CYTOTEC) tablet 200 mcg 1 09/2013 misoprostol (CYTOTEC) tablet 800 mcg 1 09/2013 morphine injection 5 mg 1 09/07/2013 multivitamin vit-ir on fumarate-FA (STUARTNATAL) 27-1 mg tablet 1 Tab 1 09/07/2013 nalOXone (NARCAN) injection 0.2 mg 1 2013 oxyCODONE (ROXICODONE) immed iate release tablet 5-10 mg 1 09/07/2013 oxytocin in lactated ringers 30 units/500 ml 1 09/07/2013 sodium chloride 0.9 % flush 3 mL 1 09/08/19 14 Admission Count Last Ordered Date First Orde red Date STATUS: NON-MEDICARE OB INPA TIENT ADMISSION 1 09/07/2013 Transfer Count Last Ordered Date First Orde red Date NOTIFY PPS OF DISCHARGE COMPLETE 1 09/08/19 14 PPS NOTIFICATION OF PATIENT ARRIVAL ON UNIT 1 09/07/2013 PPS NOTIFICATION OF SENDING PATIENT OFF THE UNIT 1 09/07/2013 Discharge Count Last Ordered Date First Orde red Date DISCHARGE PATIENT 1 09/07/2013 documented in this encounter Care Teams Home Health Care Respiratory Therapist Relationship Specialty Start Date End Date Peter Zazueta MD [address] [place] [address] PCP - General 07/16/09 documented as of this encounter
--- OUTSIDE RECORDS SUMMARY | 2024-05-02 15:20 | XMS_ITS | Encounter Summary ---
Author Organization [facility] Address [address] [place] [address] Care Team Providers Care Rigging Helper Name Role Phone Huseyin Zazueta MD Primary Care Provider [phone] Encounter Details Date Type Department Care Team (Late st Contact Info) Description 09/04/2013 Phlebotomy Only [facility] [address] [place] [address] Metal Patternmaker Apprentice, Outpatient Type I (juvenile type) diabetes mellitus without [...] Priority Date/Time Associated Diagnosis Comments FRUCTOSAMINE Routine 09/04/2013 9:16 EDT Type I (juvenile type) diabetes mellitus without mention of complication, uncontrolled documented in this encounter Results * FRUCTOSAMINE (09/04/2013 9:16 EDT) Fructosamine, S 228 200 - 285 mcmol/L [facility] Comment: Performed by: [facility], [address], [place] [address], Special Officer: Sonali Navarro, Ph.D. Blood specimen (specimen) 09/04/2013 9:16 EDT 09/04/2013 9:31 EDT us Carlin Manriquez MD CHEMISTRY & BLOOD GAS ORDERABL ES Final Result Performing Organization Address City/State/[facility] Co de Phone Number [facility] [address] [place] [address] documented in this encounter Visit Diagnoses Diagnosis Type I (juvenile type) diabetes mellitus without mention of complication, uncontrolled documented in this encounter Care Teams Rigging Helper Relationship Specialty Start Date End Date Huseyin Zazueta MD [address] [place] [address] PCP - General 07/16/09 documented as of this encounter
--- OUTSIDE RECORDS SUMMARY | 2024-05-02 15:20 | XMS_ITS | Encounter Summary ---
Author Organization [facility] Address [address] [place] [address] Care Team Providers Care Grinding Wheel Facer Name Role Phone Huseyin Zazueta MD Primary Care Provider [phone] Reason for Visit * Reason Onset Date Comments Follow-up 08/31/2013 Encounter Details Date Type Department Care Team (Late st Contact Info) Description 08/31/2013 Telephone [facility] Endocrinology - [address] [phone] Lacie Nichole RN CDE Follow-up Social History Tobacco Use Types Packs/Day [...] encounter Miscellaneous Notes * Telephone Encounter - oRsmery Mclain - 08/31/2013 1546 EDT Pt asking to speak to Lacie to let her know things with the new pump are going well. documented in this encounter Plan of Treatment Not on file documented as of this encounter Visit Diagnoses Not on filedocumented in this encounter Care Teams Grinding Wheel Facer Relationship Specialty Start Date End Date Huseyin Zazueta MD [address] [facility] [place] [address] PCP - General 07/16/09 documented as of this encounter
--- OUTSIDE RECORDS SUMMARY | 2024-05-02 15:20 | XMS_ITS | Encounter Summary ---
Author Organization [facility] Address [address] [place] [address] Care Team Providers Care Sample Grader Name Role Phone Huseyin Zazueta MD Primary Care Provider [phone] Reason for Visit * Reason Onset Date Comments Diabetes 08/22/2013 Encounter Details Date Type Department Care Team (Late st Contact Info) Description 08/22/2013 Telephone [facility] Endocrinology - [address] [phone] Raffaele Nichole, RN CDE Diabetes Social History [...] Telephone Encounter - Raffaele Nichole RN - 08/22/2013 1615 EDT email from pt: Khurram Medellin, So last night went a bit better. I had a low around 10:30pm of 32 which I corrected by eating 64 carbs and only taking 8 units of Debo. I woke up this morning at 98???.I???m not sure if I calculated my carbs wrong or what happened there??? Carolyn Portillo This is my reply: Hi, Let???s see what happens tonight. Be careful about late night blousing!!! raffaele documented in this encounter Plan of Treatment Not on file documented as of this encounter Visit Diagnoses Not on filedocumented in this encounter Care Teams Sample Grader Relationship Specialty Start Date End Date Huseyin Zazueta MD [address] [place] [address] PCP - General 07/16/09 documented as of this encounter
--- OUTSIDE RECORDS SUMMARY | 2024-05-02 15:20 | XMS_ITS | Encounter Summary ---
Author Organization [facility] Address [address] [place] [address] Care Team Providers Care Brake Repair Supervisor Name Role Phone Huseyin Zazueta MD Primary Care Provider [phone] Encounter Details Date Type Department Care Team (Late st Contact Info) Description 07/30/[address] [facility] [address] [place] [address] [place], Outpatient Type I (juvenile type) diabetes mellitus [...] Priority Date/Time Associated Diagnosis Comments FRUCTOSAMINE Routine 07/30/2013 13:34 EST Type I (juvenile type) diabetes mellitus without mention of complication, uncontrolled documented in this encounter Results * FRUCTOSAMINE (07/30/2013 13:34 EST) Fructosamine, S 226 200 - 285 mcmol/L [facility] Comment: Performed by: [facility], [address], [place] [address], Snowblower Mechanic: Sonali A. Cheryk, Ph.D. Blood specimen (specimen) 07/30/2013 13:34 EST 07/30/2013 14:01 EST us Carlin Manriquez MD CHEMISTRY & BLOOD GAS ORDERABL ES Final Result Performing Organization Address City/State/[facility] Co de Phone Number [facility] [address] [place] [address] documented in this encounter Visit Diagnoses Diagnosis Type I (juvenile type) diabetes mellitus without mention of complication, uncontrolled documented in this encounter Care Teams Brake Repair Supervisor Relationship Specialty Start Date End Date Huseyin Zazueta MD [address] [place] [address] PCP - General 07/16/09 documented as of this encounter
--- OUTSIDE RECORDS SUMMARY | 2024-05-02 15:21 | XMS_ITS | Encounter Summary ---
Author Organization [facility] Address [address] [place] [address] Care Team Providers Care Tile Sprayer Name Role Phone Huseyin Zazueta MD Primary Care Provider [phone] Reason for Visit * Reason Onset Date Comments Appointment Related 05/17/2013 Encounter Details Date Type Department Care Team (Late st Contact Info) Description 05/17/2013 Telephone [facility] Endocrinology - [address] [address] Lacie Nichole RN CDE Appointment Related Social History Tobacco [...] Telephone Encounter - Lacie Nichole RN - 05/17/2013 1835 EST Left nondetailed voice message for pt to call clinic. She did not arrive for her appt with Dr Manriquez today. documented in this encounter Plan of Treatment Not on file documented as of this encounter Visit Diagnoses Not on filedocumented in this encounter Care Teams Tile Sprayer Relationship Specialty Start Date End Date Huseyin Zazueta MD [address] [place] [address] PCP - General 07/16/09 documented as of this encounter
--- OUTSIDE RECORDS SUMMARY | 2024-05-02 15:21 | XMS_ITS | Encounter Summary ---
Author Organization [facility] Address [address] [place] [address] Care Team Providers Care Flight Coordinator Name Role Phone Huseyin Zazueta MD Primary Care Provider [phone] Reason for Visit * Reason Onset Date Comments Other 06/18/2013 Encounter Details Date Type Department Care Team (Late st Contact Info) Description 06/18/2013 Telephone [facility] Obstetrics & Midwifery - [address] [phone] Lyubov Mccallum, RN Other Social History Tobacco Use Types Packs/Day [...] Miscellaneous Notes * Telephone Encounter - Lyubov Mccallum, RN - 06/18/2013 1143 EST Phone call from Carolyn, had intercourse last night. Lost her mucous plug this morning, has had ?contractions vs constipation. Desires appt this afternoon, will call if symptoms worsen and will send [facility]. documented in this encounter Plan of Treatment Not on file documented as of this encounter Visit Diagnoses Not on filedocumented in this encounter Care Teams Flight Coordinator Relationship Specialty Start Date End Date Huseyin Zazueta MD [address] [place] [address] PCP - General 07/16/09 documented as of this encounter
--- OUTSIDE RECORDS SUMMARY | 2024-05-02 15:21 | XMS_ITS | Encounter Summary ---
Author Organization [facility] Address [address] [place] [address] Care Team Providers Care Speech Language Pathologist Travel Name Role Phone Huseyin Zazueta MD Primary Care Provider Reason for Referral * (Routine/Next Available) - Closed Specialty Diagnoses / Procedures Referred By Neva t Referred To Contact Diagnoses Dysuria Procedures URINALYSIS Lyubov Mccallum hr business partner consultant ID Status Reason Start Date Expiration Date Visits Re quested Visits Authorized [id number] Closed 04/02/2013 1 1 * (Routine/Next Available) - Closed Specialty Diagnoses / Procedures Referred By Neva t Referred To Contact Diagnoses Dysuria Procedures BACTERIAL CULTURE, URINE Lyubov Mccallum hr business partner consultant ID Status Reason Start Date Expiration Date Visits Re quested Visits Authorized [id number] Closed 04/02/2013 1 1 Reason for Visit * Reason Onset Date Comments Urinary Tract Infection 04/02/2013 Symptoms of UTI Encounter Details Date Type Department Care Team (Late st Contact Info) Description 04/02/2013 Telephone [facility] Obstetrics & Midwifery - [facility] [address] [place] [address] Lyubov Mccallum RN Urinary Tract Infection (Symptoms of UTI) Social History Tobacco Use Types Packs/Day Years [...] Telephone Encounter - Lyubov Mccallum, RN - 04/02/2013 7978 EDT Phone call from Carolyn, reports urinary frequency, and dysuria. Thinks she may have UTI. Orders placed for external Lab, and faxed to [facility] in [place]. documented in this encounter Plan of Treatment Scheduled Orders Name Type Priority Associated Diagnoses Orde r Schedule BACTERIAL CULTURE, URINE Microbiology Routine Dysuria Ordered: 04/02/2013 URINALYSIS Lab Routine Dysuria Ordered: 04/02/2013 documented as of this encounter Visit Diagnoses Diagnosis Dysuria- Primary documented in this encounter Care Teams Speech Language Pathologist Travel Relationship Specialty Start Date End Date Huseyin Zazueta MD [address] [place] [address] PCP - General 07/16/09 documented as of this encounter
--- OUTSIDE RECORDS SUMMARY | 2024-05-02 15:21 | XMS_ITS | Encounter Summary ---
Author Organization [facility] Address [address] [place] [address] Care Team Providers Care Bagger Meat Name Role Phone Huseyin Zazueta MD Primary Care Provider [phone] Reason for Visit * Reason Onset Date Comments Decreased Movement 06/20/2013 Encounter Details Date Type Department Care Team (Late st Contact Info) Description 06/20/2013 Telephone [facility] Obstetrics & Midwifery - [address] [phone] Beatriz Hebert RN Decreased Movement Social History Tobacco Use Types Packs/Day Years [...] * Telephone Encounter - Beatriz Hebert - 06/20/2013 1103 EST Pt called to report decreased movement. States the baby has not moved since 1am this morning.Pt is en route to ED related to her high glucose readings per instruction of endocrine. -Notified Dr. Rollins via L&D staff, L&D expecting patient to come to birthing center. -Called Carolyn back and instructed her to go directly to L&D for evaluation. documented in this encounter Plan of Treatment Not on file documented as of this encounter Visit Diagnoses Not on filedocumented in this encounter Care Teams Bagger Meat Relationship Specialty Start Date End Date Huseyin Zazueta MD [address] [place] [address] PCP - General 07/16/09 documented as of this encounter
--- OUTSIDE RECORDS SUMMARY | 2024-05-02 15:21 | XMS_ITS | Encounter Summary ---
Author Organization [facility] Address [address] [place] [address] Care Team Providers Care Wage Adjuster Name Role Phone Huseyin Zazueta MD Primary Care Provider [phone] Reason for Visit * Reason Comments Diabetes Encounter Details Date Type Department Care Team (Latest Contact Info) Description 07/02/2013 15:15 EST Office Visit [facility] Endocrinology - [address] [address] Unknown, Provider, , High Risk Abnormal maternal glucose tolerance, antepartum (Primary Dx); Diabetes mellitus, antepartum; Type I (juvenile type) diabetes mellitus without mention of complication, not stated as uncontrolled Social History Tobacco Use Types Packs/Day [...] this encounter Patient Instructions * Patient Instructions* Carlin Manriquez - 07/02/2013 15:38 EST 1. Continue Lantus 25 un daily (morning injections) 2. Continue carb ratio of 1:7 but give ahead of time by 15-30 minutes and correction factor of 1:30(or 1:25) 3. Check FSBG 10 times daily: fasting, 1-hour or 2-hours postprandial, and anytime there is persistent hyperglycemia or hypoglycemia 4. Glucose targets: (a) Fastin or less (b) 1-hour postprandial: 140 or less (c) 2-hours postprandial: 120 or less 5. Call/fax glucose readings on a weekly basis. documented in this encounter Progress Notes * Carlin Manriquez - 07/02/2013 1533 EST Endocrinology Follow-up Note Date of Consultation: 07/02/2013 Reason for Consultation: Management of antepartum type 1 diabetes mellitus Problem List: 1. Antepartum type 1 diabetes mellitus 2. Intrauterine (current gestational age: 27 weeks 3 days by US) 3. LMP 12/22/2012 HPI: Carolyn Portillo is a 32 y.o. female seen in follow-up in the [facility]/Endo joint clinic for management of Type 1 DM during . Hayley has had diabetes since 07/2009, so just around 4 years. She has 3children at home and she is . Hayley has been doing better control and her blood sugars during this than she ever did before she became . She had been working on this prior to conception, despite the fact that this was not a planned . Since I last saw her in clinicshe was admitted very briefly for DKA with nausea and vomiting, and received steroids for lung maturity. She had significant spikes in her glucoses around that time, but they have since come back to normal. Her current diabetes regimen includes - Lantus insulin 25 units each morning - NovoLog insulin with an insulin to carb ratio of 1:7 - correction - uncertain as this has changed since steroids are no longer on board She continues to work for [employer] and commutes a long distance back and forth between home and work, which is difficult. She continues to work with her ex- on legal ramifications of having her move her children further away from him. She is checking glucoses 10-12 times daily and has reasonable numbers recently. Some mild hypoglycemia but 100% awareness and none severe: Date/time: Glucose: 07/02 12:30 p 188 11:26 p 54 09:15 a 126 06:20 a 67 1/26 9:30 p 179 8:14 p 53 7:30 p 65 6:00 p 184 3:30 p 97 1:00 p 75 08:00 97 06/30 9:25 p 280 8:00 p 258 3:00 p 72 2:58 p 55 2:00 p 121 12:30 p 239 10:00 a 234 07:00 a 115 06/29 8:30 p 89 3:40 p 244 1:00 p 58 11:20 52 8:30 a 148 06:30 a 69 06/28 11:00 p 50 10:48 p 36 Component Latest Ref Rng 03/16/2013 03/30/2013 04/27/2013 [...] 6 current LMP: 12/22/2012 Current gestational age: 27 weeks 3 days by US Estimated delivery date: 09/28/2013 Pre- weight: 123 lb Current weight: 133 lb 2. Diabetes History: When diagnosed: 07/2009 Previous treatment: always on insulin Current treatment: Lantus 25 un qam, Novolog 1:7 with meals Treatment adherence: Excellent, especially recently Home glucose monitoring: Fastin - 115, many in the high 90s 2-hours postbreakfast:126-248, most under 150 2-hours postlunch: 55-244, most under 180 2-hours postdinner: 53-188, most under 170 Hypoglycemia/availability of glucagon emergency kit at home: has glucagon and boyfriend and oldest daughter know how to use it, has never had to use it HbA1c trend: HbA1c //: //: //: Lab Results Component Value Date HGBA1C 7.0 04/27/2013 HGBA1C 7.5 03/16/2013 HGBA1C 8.4 01/26/2013 HGBA1C 8.6 11/22/2012 HGBA1C 9.3* 08/18/2012 Fructosamine trend: See above Weight: 133 lb now Eating habits: Mostly 3 meals daily, some snacks, nausea has resolved Physical activity: Fairly active, walks, bikes, does recreational exercise with children and boyfriend Previous referral to dietitian/consumer educator: Sees Lacie Nichole and Pam Miranda [...] Diabetes mellitus in ??? Threatened labor, antepartum Past Medical History Diagnosis Date ??? [...] Control/ Protection: Injection Other Topics Concern ??? Not on file Social History Narrative ??? No narrative on file Family History Problem Relation Age of Onset [...] systems reviewed and are negative. Physical Examination: [facility] 12/22/2012 Constitutional: Oriented to person, place, and [...] Data: Lab Results Component Value Date HGBA1C 7.0 04/27/2013 HGBA1C 7.5 03/16/2013 HGBA1C 8.4 01/26/2013 HGBA1C 8.6 11/22/2012 HGBA1C 9.3* 08/18/2012 Lab Results Component Value Date NA 134* [...] Antepartum type 1 diabetes mellitus. Current intrauterine (27 weeks 3 days): Hayley is an incredibly nice 32-year-old female with Type 1 DM who is . Her glucoses are as good as I have ever seen them, and the trend towards better control of her glucoses started prior topregnancy, which is outstanding. Hayley is not having as much hypoglycemia as she had been a few weeks ago. She denies hypoglycemia unawareness. She occasionally spikes after meals and is convinced that giving the meal time injections 10703 minutes before the meals help. She has Lacie [employer]'s e-mail address as well as [employer], and we will send us glucoses weekly. We will [...] delivery and hypoglycemia/respiratorydistress syndrome. Pharmacotherapy: - Lantus: no change - 25 un daily to avoid hypoglycemia - Novolog: continue carb ratio of 1:7 and use less with lower carb meals and more with higher carb meals - SSI Novolog: try 1:30 and go to 1:25 as needed - moving target due to recent spikes with steroidsfor lung maturity, but better now Labs: - Fructosamine and A1c next 1 week Home glucose monitoring: - Check FSBG 10 [...] done in 11/2012 Plan: 1. Increase Lantus from 27 to 30 un as above (morning injections) 2. Continue carb ratio of 1:7 (but give 15-20 minutes before meals to stop post prandial hyperglycemia) and correction of 1:30 (consider 1:25 if this is not enough) 3. Check FSBG 10 times daily: fasting, 1-hour or 2-hours postprandial, and anytime there is persistent hyperglycemia or hypoglycemia 4. Glucose targets: (a) Fastin or less (b) 1-hour postprandial: 140 or less (c) 2-hours postprandial: 120 or less 5. Call/fax glucose readings on a weekly basis. 6 Follow-up: RTC in 2-4 weeks (my next MFM/Endo date) Carlin Manriquez MD HPI documented in this encounter Plan of Treatment Not on file documented as of this encounter Results * HEMOGLOBIN A1C (07/09/2013 13:44 EST) Hemoglobin [...] (specimen) 07/09/2013 13:44 EST 07/09/2013 14:13 EST us Carlin Manriquez MD CHEMISTRY & BLOOD GAS ORDERABL ES Final Result [facility] [address] [place] [address] documented in this encounter Visit Diagnoses Diagnosis Abnormal maternal glucose tolerance, antepartum- Primary Diabetes mellitus, antepartum(648.03) Diabetes mellitus, antepartum Type I (juvenile type) diabetes mellitus without mention of complication, not stated as uncontrolled documented in this encounter Care Teams Wage Adjuster Relationship Specialty Start Date End Date Huseyin Zazueta MD [address] [place] [address] PCP - General 07/16/09 documented as of this encounter
--- OUTSIDE RECORDS SUMMARY | 2024-05-02 15:21 | XMS_ITS | Encounter Summary ---
Author Organization [facility] Address [address] [place] [address] Care Team Providers Care Cae Engineer Name Role Phone Huseyin Zazueta MD Primary Care Provider [phone] Encounter Details Date Type Department Care Team (Latest Contact Info) Description 05/25/2013 10:11 EST - 05/25/2013 23:59 EST Hospital Encounter [facility] [place] [address] [place] [address] Unknown, Provider, Carlin Woody MD [address] [place] [address], [address] [address] Discharge Disposition: Auto Discharge Social [...] ( ORAL) Take by mouth. 12/01 6 simvastatin (ZOCOR) 20 mg tablet Take 20 mg by mouth daily. 4 documented as of this encounter Discharge Disposition Disposition Code Departure Means Destination Auto Discharge Home documented in this encounter Plan of Treatment Not on file documented as of this encounter Visit Diagnoses Not on filedocumented in this encounter Care Teams Cae Engineer Relationship Specialty Start Date End Date Huseyin Zazueta MD [address] [place] [address] PCP - General 07/16/09 documented as of this encounter
--- OUTSIDE RECORDS SUMMARY | 2024-05-02 15:21 | XMS_ITS | Encounter Summary ---
Author Organization [facility] Address [address] [place] [address] Care Team Providers Care Animal Health Technician Name Role Phone Huseyin Zazueta MD Primary Care Provider [phone] Reason for Visit * Reason Comments Labs Only Encounter Details Date Type Department Care Team (Latest Contact Info) Description 04/27/2013 10:00 EST Procedure visit [facility] Endocrinology - [facility] [address] [place] [address] Talha Desir, [address] [facility] [address] [place] [address] Phlebotomy, [facility] Type I (juvenile type) diabetes mellitus without [...] as of this encounter Progress Notes * Nohemi Watkins - 04/27/2013 1009 EST Blood sample drawn from vein for testing at the order of Dr. Mitra Watts was directly supervised by and he/she was in the suite and immediately available for the entire time the service was provided. documented in this encounter Plan of Treatment Not on file documented as of this encounter Procedures Procedure Name Priority Date/Time Associated Diagnosis Comments FRUCTOSAMINE Routine 04/27/2013 10:00 EST Type I (juvenile type) diabetes mellitus without mention of complication, uncontrolled HEMOGLOBIN A1C Routine 04/27/2013 10:00 EST Type I (juvenile type) diabetes mellitus without mention of complication, uncontrolled documented in this encounter Results * FRUCTOSAMINE (04/27/2013 10:00 EST) Fructosamine, S 241 200 - 285 mcmol/L [facility] Comment: Performed by: [facility], [address], [place] [address], [employer]: Sonali Navarro, Ph.D. Blood specimen (specimen) 04/27/2013 10:00 EST 04/27/2013 15:28 EST us Carlin Manriquez MD CHEMISTRY & BLOOD GAS ORDERABL ES Final Result [facility] [address] [place] [address] * HEMOGLOBIN A1C (04/27/2013 10:00 EST) Hemoglobin A1C 7.0 % [facility] Comment: Reference Range: <5.7% Normal 5.7-6.4% Increased risk for diabetes =>6.5% Diagnostic for diabetes (if confirmed) The A1c goal for non adults in general is <7%. The A1c goal for selected patients may be significantly lower than 7% if this can be achieved without significant hypoglycemia or other adverse effects of treatment. Est Avg Glucose 154 mg/dl [facility] Comment: eAG represents the A1c result expressed as average glucose in mg/dl. Blood specimen (specimen) 04/27/2013 10:00 EST 04/27/2013 15:28 EST Carlin Manriquez MD CHEMISTRY & BLOOD GAS ORDERABL ES Final Result [facility] [address] [place] [address] documented in this encounter Visit Diagnoses Diagnosis Type I (juvenile type) diabetes mellitus without mention of complication, uncontrolled documented in this encounter Care Teams Animal Health Technician Relationship Specialty Start Date End Date Huseyin Zazueta MD [address] [place] [address] PCP - General 07/16/09 documented as of this encounter
--- OUTSIDE RECORDS SUMMARY | 2024-05-02 15:21 | XMS_ITS | Encounter Summary ---
Author Organization [facility] Address [address] [place] [address] Care Team Providers Care Telephone Sales Representative Name Role Phone Huseyin Zazueta MD Primary Care Provider [phone] Reason for Referral * (Routine/Next Available) - Closed Specialty Diagnoses / Procedures Referred By [facility] Referred To Contact Frank Hall MD Referral ID Status Reason Start Date Expiration Date V isits Requested Visits Authorized [id number] Closed Specialty Services Required 06/19/2013 1 1 Comments See your HIGH RISK manager code in 1 weeks. Call for an appointment. * (Routine/Next Available) - Closed Specialty Diagnoses / Procedures [facility] By [facility] Referred To Contact Frank Hall MD Referral ID Status Reason Start Date Expiration Date V isits Requested Visits Authorized [id number] Closed Specialty Services Required 06/19/2013 1 1 Comments You should see Endocrinology in follow up. Please call for an appointment Reason for Visit * Reason Comments Non-stress Test R/O PTL Encounter Details Date Type Department Care Team (Late st Contact Info) Description 06/18/2013 13:37 EST - 06/19/2013 18:00 EST Hospital Encounter [facility] Mother/Baby [address], [place] [id number] Neil Linares MD [address] [facility], [address] [place] [id number] Supervision of other high-risk (V23.89) (Primary Dx); Diabetes mellitus (CMS-HCC) (HCC-CMS); uterine contractions Discharge Disposition: Home or Self Care Social [...] Sign Reading Time Taken Comments Blood Pressure 103/57 06/19/2013 1650 EST Pulse 77 06/19/2013 1650 EST Temperature 37.8 ??C (100 ??F) 06/19/2013 1650 EST Respiratory Rate 18 06/19/2013 1650 EST Oxygen Saturation 98% 06/19/2013 1650 EST Inhaled Oxygen Concentration - - Weight 59.9 kg (132 lb) 06/18/2013 1349 EST Height 154.9 cm (5' 1) 06/18/2013 1349 EST Body Mass Index 24.94 06/18/2013 1349 EST documented in this encounter Discharge Summaries * Sonya Joyce MD - 06/29/2013 1235 EST Discharge Summary Chief Complaint/Reason for Admission: Vaginal pressure and abdominal discomfort. Principal/Final Diagnosis: PTL vs PTUA Principal Procedure: BMZ (06/18-06/19) Secondary Procedures: None. Condition at Discharge: Good Hospital Course: Carolyn Portillo is a 32 y.o. @ 25+3 w/ T1DM on SQ insulin, who presented to L&D after being seen in clinic. In clinic patient was examined due to complaints of vaginal pressure. Her cervix was noted to be short and her lower uterine segment was noted to be well developed.Patient was referred to L&D for steroid course. Endocrine was also consulted with regards to her blood sugar control as we anticipated that they would become poorly controlled due to the steroid effect. On HD#2 patient remained stable. Patient received her second BMZ shot and was discharged home in stable condition. Relevant Studies at Discharge: none Discharge Summary Completed: 07/04/2013 Cosigned by Danny Arzate MD at 07/09/2013 14:30 EST documented in this encounter Medications at Time [...] documented in this encounter Progress Notes * Ketty Recinos RD - 06/19/2013 1401 EST 06/19/2013 Nutrition Note S. microbiological lab technician to see pt. Carolyn did have some questions regarding snack secondary to her higher blood sugars 0. Diet Consistent CHO 25 weeks gestation Diab Type 1 Endo following Lantus and Novolog Betamethasone FS 187, 240 A. Information regarding CHO content of menu items offered Pt trying to be careful secondary to elevated BS Betamethasone to be completed 06/20 P. Consistent CHO dietary services manager to help with menu/snack selections as needed Thank you Ketty Recinos RD CD CSP Beeper 330 * Danny Arzate MD - 06/19/2013 0551 EST R2 Antepartum Progress Note CC: PTL vs PTUA S: Patient reports feeling well. Denies LOF/VB/Cx. Reports that she had some vaginal pressure overnight but has since improved. +FM. O: Blood pressure 99/54, pulse 87, temperature 37 ??C (98.6 ??F), temperature source Tympanic, resp. rate 16, height 154.9 cm (61), weight 59.875 kg (132 lb), last menstrual period 12/22/2012. GEN: NAD CV: RRR PULM: CTAB ABD: +BS, soft, NT EXT: WWP A/P: Carolyn Portillo is a 32 y.o. @ 25+4 by 7+6 US who is admitted for BMZ administration in the context of suspected PTL vs PTUA. AVSS. *PTL/PTUA: s/p indocin/carafate for tocolysis, SVE has been stable since admission. No si/sx of infection. Will continue to monitor. *T1DM: Elevated sugars as expected s/p first dose of BMZ, up to 249 and 187 overnight. - Endocrine to see this AM. *FWB: EFW 773gm, MELIA 16 breech on US yesterday. - Would start Mg if patient appears to be laboring. - Peds aware. - s/p first dose of BMZ yesterday. Second dose today. *Global: - ADA - Rh pos - GBS pending. - Anesthesia aware. Sonya Joyce MD OB Attending Attestation: I have examined Carolyn Portillo myself and agree with the above assessment and plan as noted. Pt has been stable through the course of the day, in terms of s/sxs of PTL. No further contractions all day. Received 2nd dose of BMZ this evening, and is doing well. Blood sugars have been high since start of BMZ, [facility] Endo involved. Pt strongly desires d/c to home- given no evidence for PTL, and blood sugars that are predictably elevated, but not >300, in a patient with close Endo outpt follow-up,and who is highly reliable, will allow her to go home. She has an appt this Tuesday in clinic. Discussed s/sxs of PTL at length, though patient is at very low risk given her 3 prior term deliveries. DANNY AZRATE MD * Carolyn Amato RN - 06/18/20131919 EST Care assumed. Pt found sitting up in bed, just finished eating dinner. IV in left FA S/L. Pt voiding PRN. Awaiting orders to transfer to [facility]. Pt agrees with plan. Family supportive at bedside. 1944 VSS. Transfer to [facility]. * Nirali Asif MD - 06/18/2013 1721 EST OB Attending Note Patient seen and examined by me. Records and ultrasound results reviewed by me. Patient is a 32 y.o. 25w3d. Type I diabetic. Patient reports intercourse yesterday AM - 5 am and then later that day passing her mucuos plug. Since that time , she c/o pelvic pressure. No bleeding,leaking , fetus less active than usual. Contractions None felt, Movement decreased. Saw Dr. Rollins in the office and noted a concerning cervical exam and sent her to L+D for monitoring and steroids. Feels well otherwise. has a past medical history of Kidney stones and Diabetes mellitus (07/2009). No past surgical history on file. PGYNHx: unremarkable, no hx cervical procedures OB History Grav Para Term Abortions TAB SAB Ect Mult Living 6 3 3 2 1 1 3 Meds: Lantus 22 units in am Novalog 9:1 carb ratio with meals Allergies Allergen Reactions ??? Levemir (Insulin Detemir) Swelling and Other (See Comments) Swelling and bruising and itching at site of injection Blood pressure 88/48, pulse 69, temperature 35 ??C (95 ??F), temperature source Tympanic, resp. rate 16, height 154.9 cm (61), weight 59.875 kg (132 lb) Abd: gravid, soft nontender Exts:no edema FHT: BL is 145, moderate variability, accels to 155, no decels, Cat I. TOCO: ctxs every irregular now, on admission ctxs every few minutes SVE:Cx- closed/short-1/2 -1 cm long, closed, well developed MARLO with parts easily palpable per U/S: breech, EFW 773 gms, MELIA 16, see report. A/P:Patient is a 32 y.o. 25w3d 1) PTUA and well developed lower uterine segment. Dr. Rollins saw patient in clinic and felt she needed monitoring and Betamethasone. Given frequent ctxs on admission she was given one dose indocin,now less contractions and FFN came back negative. Will monitor over night, complete steroids, have NICU see and monitor FS as will likely need some increased insulin due to steroids. Given ctxs now de creased and closed cervix and neg FFN will not give magnesium for neuro protection as delivery not imminent. GBS swab done, again will not treat unless cervix changes. 2) Type I DM - managed by endocrine, follow glucose levels and continue current regimen with endocrine consult for increased glucoses as expected by steroid effects. * Jess Martinez RN - 06/18/2013 1605 EST 1515 Grace Martinez RNC taking report. Pt reports a FS of 61 on her own meter is nonsymptomatic, Dr Joyce aware. Requests Pt be NPO and wants IV changed to D51/2NS. 1545 Repeat Blood Sugar 70. Pt now allowed Clear Fluids, and IV changed back to RL per Dr. Joyce 1630 Off monitor for US with Dr. Joyce. Pt reports feeling fine with no s/s of hypoglycemia. 1845 Dinner - 67 carbs with 8 u Novolog 1900 Pt off monitor per Dr. Ha to be transferred to [facility] for glucose management and second dose of Betamethasone. 1920 Grace Martinez RNC reporting off to Mikie Robertson RN * Cecily Bowers, EDITH - 06/18/2013 1347 EST Lost mucous plug this am 0800, started feeling low abd pressure (crampy) arouind 0900- comes and goes not timable Had shortened cervix and WDLUS in office 1402 dr joyce in rm 1501 pt checked own BS- 61. Dr sena,aid to be notified 1510 US breech documented in this encounter H&P Notes * Nirali Asif MD - 06/18/2013 1433 EST Department of Obstetrics History & Physical Admit Date: 06/18/2013 Chief Complaint: Vaginal pressure and abdominal discomfort. HPI: Carolyn Portillo is a 32 y.o. @ 25w3d by 7+6 wk US w/ complicated by T1DM whowas seen in the office today w/ complaints of vaginal pressure and abdominal discomfort. Patient reports that she had intercourse yesterday at 0500, patient then passed some mucus today at 0800 and went on to report intermittent lower abdominal vague discomfort that started around 0900. Patient cannot quantify intensity or frequency. Reports a few episodes of loose stool over yesterday and the day before. Endorses sick contacts, her son has had a GI illness for the past couple of days, but was staying with his father. Now back home with her but asymptomatic. Khris fever/chills/rigors/dysuria/increased frequency/Cx/LOF. On L&D patient reports ongoing vaginal pressure and lower abdominal discomfort. Otherwise feeling well. Review of Systems: See HPI Current Ob History has been complicated by T1DM. Patient on 22 units of Lantus in the AM and carb correctionof 1:9 w/ meals w/ aspart. Patient follows w/ Dr. Manriquez JELANI 09/28/2013 by 7+6wk U/S c/w LMP Blood Type O pos Antibody Neg GBS Unk Varicella Protected Rubella Immune Gonorrhea Not done Chlamydia Not done Pap 2011 ASCUS w/ neg HPV RPR NR Hep B Neg Hep C Not done HIV Neg 1 hour GTT Aneuploidy Testing Declined CF Testing Ultrasound Date GA EFW MELIA An[employer]pplers 05/11 20+0 351gm wnl Past Ob History : 1999. 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 Distant hx of chlamydia that was treated. History Substance Use Topics ??? Smoking status: Current Every Day Smoker -- 1.00 packs/day ??? Smokeless tobacco: Never Used ??? Alcohol Use: Yes Comment: occasional Medications Allergies No current facility-administered medications on file prior to encounter. Current Outpatient Prescriptions on File Prior to Encounter Medication Sig Dispense Refill ??? blood glucose [...] VIT/IRON FUMARATE/FA ( ORAL) Take by mouth. ??? simvastatin (ZOCOR) 20 mg tablet Take 20 mg by mouth daily. Allergies Allergen Reactions ??? Levemir (Insulin Detemir) Swelling and Other (See Comments) Swelling and bruising and itching at site of injection Objective: Patient Vitals for the past 8 hrs: BP Pulse Resp Temp 06/18/13 1349 97/62 mmHg 77 18 35 ??C (95 ??F) GEN: NAD CV: RRR RESP: CTAB ABD: Non-tender, appropriately gravid. EXT: WWP FHT: 140 baseline, mod variability, pos accels, neg decels; Cat I tracing. TOCO: Cx q 2-3 min initially, spaced out, baseline uterine irritability. SSE: Neg pooling, ferning or nitrazine. SVE: SVE 2 hrs from previous exam: 0-0.5/50%/ parts nonpalpable. Assessment/Problems/Plan: Carolyn Portillo is a 32 y.o. @ 25w3d by 7+6 presenting from clinic for vaginal pressure and lower abdominal discomfort, was found to have a shortened cervix on SVE and a well developed MARLO. AVSS. Cat I FHT. *PTL vs PTUA: Contractions have spaced out, repeat SVE 2hrs after office SVE more or less unchanged. FFN collected in the office was negative. Given contractions will admit patient for BMZ and will start on indocin/carafate. - BMZ course - Tocolysis *T1DM: On Lantus 22 U in AM, aspart w/ meals carb correction 1:9. Suspect elevation in blood sugarss/p BMZ. Continue home regimen for now. - Endocrine consult, will see in AM. - POCT Glucose 2hrs PP and fasting. *FWB: cEFM. Cat I FHT. EFW 773gm, MELIA 16, breech on follow up today. - cEFM - Would not start Mg for neuroprotection for now. Would start Mg should patient appear to be laboring. - Peds aware. *Global: - ADA - Rh pos - GBS unk - Anesthesia aware. Discussed with Dr. Asif. Sonya Joyce MD 06/18/2013 14:33 Attestation statement: I have reviewed the patient's records and ultrasound findings and I have seen and examined the patient on the day of admission 06/18/13. I agree with the findings and plan of care documented in the resident's note. See my note from admission date. Nirali Asif MD 06/19/2013 9:38 documented in this encounter Consult Notes * Dom Campos MD - 06/19/2013 0814 EST Endocrine Inpatient Consult Note Admit Date: 06/18/2013 Date of Service: 06/19/2013 Requesting Physician: Vijay Miguel Completing Consult: Endocrine Reason for Consult: Diabetes management for type 1 DM at 25 weeks gestation HPI: 32 y.o. female with type 1 diabetes mellitus since 07/2009 who is 25 weeks (LMP 12/22/2012).Is managed closely by Carlin Manriquez MD and Lacie Nichole RN CDE. Admitted from clinic yesterday with vaginal pressure and abdominal discomfort, and cervix shortened. Started on Betamethasone 12 mg last evening - planned second dose tonight. Asked to see for BG management. Current diabetes regimen is 22 units Lantus in the AM and Novolog 1:9 carb ratio[address] Last saw Dr. Manriquez in clinic 02/15/2013 Last saw Lacie Nichole 04/27/2013 to discuss insulin pump therapy. Fructosamine 06/07/2013 = 252 Describes BG values on current regimen really good with virtually no hypoglycemia. Since last night's betamethasone, given Aspart bolus 4 units 21:45 last night and 2 units at 3:30 today. Diabetes HX: Duration: Type 1 DM - diagnosed 07/2009 Control: Good - last fructosamine 252 Complications: none Home Regimen: Lantus 22 units and Aspart 1:9 carb ratio Self Care, SBGM: usually within target Regular Diabetes Provider: [facility] Past Medical History Diagnosis Date ??? Kidney stones ??? hematuria & adbominal pain ??? Diabetes mellitus 07/2009 eye exam annually No past surgical history on file. Social History Family History History Substance Use Topics ??? Smoking status: Current Every Day Smoker -- 1.00 packs/day ??? Smokeless tobacco: Never Used ??? Alcohol Use: Yes Comment: occasional Family History Problem Relation Age of Onset ??? High Blood Pressure Mother ??? Diabetes Sister Medications Current Facility-Administered Medications Medication Route Frequency ??? betamethasone (CELESTONE SOLUSPAN) 6 mg/mL injection 12 mg intramuscular Q24H ??? dextrose 50 % solution 12.5 g intravenous PRN ??? glucagon (human recombinant) injection 1 mg intramuscular PRN ??? insulin aspart (NOVOLOG FLEXPEN) injection subcutaneous TID WC ??? insulin glargine (LANTUS SOLOSTAR) injection pen 22 Units subcutaneous DAILY L.A. INSULIN ??? insulin glargine (LANTUS SOLOSTAR) injection pen 3 Units subcutaneous ONCE ??? sodium chloride 0.9 % flush 3 mL intravenous Q8H Allergies Allergies Allergen Reactions ??? Levemir (Insulin Detemir) Swelling and Other (See Comments) Swelling and bruising and itching at site of injection Review of Systems: Pertinent items are noted in Subjective/HPI Objective/Physical Exam: VS: BP: 99/54 mmHg Pulse: 87 Resp: 16 Temp: 37 ??C (98.6 ??F) Exam: Lying in bed, comfortable on room air. Data Review: N/A Labs: Recent Labs 06/18/13 1538 06/18/13 1717 06/18/13 1821 06/18/13 2105 06/19/13 0215 GLUCOSEFINGE 70 126* 88 249* 187* Lab Results Component Value Date WBC 13.61* 06/18/2013 RBC 4.12 06/18/2013 HGB 12.5 06/18/2013 HCT 35.8 06/18/2013 MCV 87 06/18/2013 MCH 30.4 06/18/2013 MCHC 35.0 06/18/2013 PLT 252 06/18/2013 NEUTROABS 9.25* 06/18/2013 Lab Results Component Value Date SERGLU 215* 11/22/2012 NA 138 11/22/2012 K 4.1 11/22/2012 CL 104 11/22/2012 CO2 25 11/22/2012 BUN 8* 11/22/2012 CREATININE 0.38* 03/02/2013 CALCIUM 9.6 11/22/2012 CALCGFR >60 03/02/2013 ALKPHOS 56 11/22/2012 TBIL <0.5 11/22/2012 AST 15 03/02/2013 ALT 22 03/02/2013 LABALBU 4.1 11/22/2012 TP 7.1 11/22/2012 Other Studies: N/A Assessment: 32 year old with type 1 DM and 25 weeks who received betamethasone last evening and again tonight. BG ina as expected with Novolog bolus x 2. FBG 187 this AM, and already received her usual22 units Lantus. Will add 3 more units now, and lower carb ratio to 7 for rest of day and tomorrow.She expects may go home tonight. These recommendations are modest increases in insulin use - issue now is not to induce hypoglycemia. Will review today's effect of these higher doses. Recommendations: 1) Give additional 3 units Glargine now - order written. 2) Reduce carb ratio at meals to 7 - order written. 3) Will monitor today's BG values and decide on additional insulin. DOM CAMPOS MD 06/19/2013 8:14 documented in this encounter Miscellaneous Notes * Plan of Care - Leonela Nugent, RN - 06/19/2013 1431 EST Ante- Shift Note Reason for Admission: JELANI: 09/28/2013 Gestational Age (weeks): 25W4D Cervix: Vital signs: Stable Patient Vitals for the past 8 hrs: BP Pulse Resp Temp SpO2 06/19/13 1223 87/55 mmHg 85 18 37.5 ??C (99.5 ??F) - 06/19/13 0815 97/56 mmHg 80 16 37.5 ??C (99.5 ??F) 98 % Movement: Present Membranes intact: Yes Bleeding: No Contractions: Irritability NST: Reactive Betamethasone: second dose due today at 15:05 GDM: Comment: Type 1 diabetic IV / SL: Saline lock patent and flushed this shift Special Social Circumstances: Pt and FOB both have three older children from previous relationships, this is their first child together. Pt here for PTL vs PTUA. Sonia and lost muc No B,L,Cx today, +fm. Second dose betamethasone given today at 15:05. Pt IDDM, blood sugars usually well controlled per pt but elevated due to betamethasone. Saw endocrine this am but has not yet seen attending OB physician today. Pt would like to go home after her second dose beta. * Plan of Care - Leonela Nugent RN - 06/19/2013 1409 EST Problem: MAINTENANCE/ SUPPORT Goal: Maintain Outcome: Ongoing D will be maintanied A Pt aware of s/sx of PTL to report. R No c/o B,L, Cx today. Continue to monitor per protocol. * Plan of Care - Hawa Shukla - 06/19/2013 0552 EST Problem: NUTRITION/DIET Goal: Adequate Fluid & Diet To Meet Nutritional Needs Outcome: Ongoing Ante- Shift Note Reason for Admission: JELANI: 09/28/2013 Gestational Age (weeks): 25W4D Cervix: Vital signs: Stable Patient Vitals for the past 8 hrs: BP Pulse Resp Temp 06/19/13 0400 99/54 mmHg 87 16 37 ??C (98.6 ??F) 06/19/13 0003 91/46 mmHg 73 16 37.2 ??C (99 ??F) Movement: Present Membranes intact: Yes Bleeding: No Contractions: Irritability and Irregular NST: Not yet completed Betamethasone: GDM: Comment: Type 1 diabetic IV / SL: IV to saline lock Special Social Circumstances: Data: Type 1 diabetic, 2 hour PP elivated, Action: made aware new orders Response: 2 AM FS still elivated new orders for x1 insulin given. Will continue to monitor. documented in this encounter Plan of Treatment Scheduled Referrals Name Type Priority Associated Diagnoses Order Schedule PROVIDER FOLLOW-UP INSTRUCTIONS Outpatient Referral Routine Ordered: 06/19/2013 PROVIDER FOLLOW-UP INSTRUCTIONS Outpatient Referral Routine Ordered: 06/19/2013 documented as of this encounter Procedures Procedure Name Priority Date/Time Associated Diagnosis Comments GLUCOSE, GLUCOMETER Routine 06/19/2013 1 6:29 EST GLUCOSE, GLUCOMETER Routine 06/19/2013 1 5:11 EST GLUCOSE, GLUCOMETER Routine 06/19/2013 1 3:16 EST GLUCOSE, GLUCOMETER Routine 06/19/2013 1 2:01 EST GLUCOSE, GLUCOMETER Routine 06/19/2013 9 :28 EST GLUCOSE, GLUCOMETER Routine 06/19/2013 7 :21 EST GLUCOSE, GLUCOMETER Routine 06/19/2013 2 :15 EST GLUCOSE, GLUCOMETER Routine 06/18/2013 2 1:05 EST LD US FOLLOW-UP OB Routine 06/18/2013 18 :37 EST GLUCOSE, GLUCOMETER Routine 06/18/2013 1 8:21 EST GLUCOSE, GLUCOMETER Routine 06/18/2013 1 7:17 EST BLOOD BANK HOLD Routine 06/18/2013 16:20 EST GLUCOSE, GLUCOMETER Routine 06/18/2013 1 5:38 EST GROUP B STREP PCR STAT 06/18/2013 14: 33 EST URINALYSIS WITH MICROSCOPIC IF POSITIVE STAT 06/18/2013 14:00 EST UA REFLEX Routine 06/18/2013 14:00 EST URINE CULTURE IF POSITIVE STAT 06/18/2013 14:00 EST DIFFERENTIAL STAT 06/18/2013 14:00 EST COMPLETE BLOOD COUNT STAT 06/18/2013 14:00 EST COMPLETE BLOOD COUNT AND DIFFERENTIAL STAT 06/18/2013 14:00 EST C REACTIVE PROTEIN STAT 06/18/2013 14 :00 EST documented in this encounter Results * (ABNORMAL) GLUCOSE, GLUCOMETER (06/19/2013 16:29 EST) Glucose, Fingerstick 176(H) 70 - 100 mg/dl [facility] Reel Repairer ID [id number] [facility] Comment:Test Performed by [employer] 06/19/2013 16:2 9 EST 06/19/2013 16:32 EST Neil Linares MD CHEMISTRY & BLOOD GAS OR DERABLES Final Result Performing Organization Address [facility] Co de Phone Number [facility] [address] [place] [address] * (ABNORMAL) GLUCOSE, GLUCOMETER (06/19/2013 15:11 EST) Glucose, Fingerstick 225(H) 70 - 100 mg/dl [facility] Reel Repairer ID [id number] [facility] Comment:Test Performed by [employer] 06/19/2013 15:1 1 EST 06/19/2013 15:14 EST Neil Linares MD CHEMISTRY & BLOOD GAS OR DERABLES Final Result Performing Organization Address City/[facility]/ZIP Co de Phone Number [facility] [address] [place] [address] * (ABNORMAL) GLUCOSE, GLUCOMETER (06/19/2013 13:16 EST) Glucose, Fingerstick 240(H) 70 - 100 mg/dl [facility] Reel Repairer ID [id number] [facility] Comment:Test Performed by [employer] 06/19/2013 13:1 6 EST 06/19/2013 13:17 EST Neil Linares MD CHEMISTRY & BLOOD GAS OR DERABLES Final Result Performing Organization Address [facility] Co de Phone Number [facility] [address] [place] [address] * (ABNORMAL) GLUCOSE, GLUCOMETER (06/19/2013 12:01 EST) Glucose, Fingerstick 260(H) 70 - 100 mg/dl [facility] Reel Repairer ID [id number] [facility] Comment:Test Performed by [employer] 06/19/2013 12:0 1 EST 06/19/2013 12:02 EST us Neil Linares MD CHEMISTRY & BLOOD GAS OR DERABLES Final Result Performing Organization Address [facility] Phone Number [facility] [address] [place] [address] * (ABNORMAL) GLUCOSE, GLUCOMETER (06/19/2013 9:28 EST) Glucose, Fingerstick 276(H) 70 - 100 mg/dl [facility] Reel Repairer ID [id number] [facility] Comment:Test Performed by [employer] 06/19/2013 9:28 EST 06/19/2013 9:32 EST us Neil Linares MD CHEMISTRY & BLOOD GAS OR DERABLES Final Result Performing Organization Address [facility] de Phone Number [facility] [address] [place] [address] * (ABNORMAL) GLUCOSE, GLUCOMETER (06/19/2013 7:21 EST) Glucose, Fingerstick 210(H) 70 - 100 mg/dl [facility] Reel Repairer ID [id number] [facility] Comment:Test Performed by [employer] 06/19/2013 7:21 EST 06/19/2013 9:32 EST us Neil Linares MD CHEMISTRY & BLOOD GAS OR DERABLES Final Result Performing Organization Address [facility] de Phone Number [facility] [address] [place] [address] * (ABNORMAL) GLUCOSE, GLUCOMETER (06/19/2013 2:15 EST) Glucose, Fingerstick 187(H) 70 - 100 mg/dl [facility] Reel Repairer ID [id number] [facility] Comment:Test Performed by [employer] 06/19/2013 2:15 EST 06/19/2013 2:16 EST Neil Linares MD CHEMISTRY & BLOOD GAS OR DERABLES Final Result Performing Organization Address [facility] de Phone Number [facility] [address] [place] [address] * (ABNORMAL) GLUCOSE, GLUCOMETER (06/18/2013 21:05 EST) Glucose, Fingerstick 249(H) 70 - 100 mg/dl [facility] Reel Repairer [place] [id number] [facility] Comment:[facility] [employer] 06/18/2013 21:0 5 EST 06/18/2013 21:07 EST Neil Linares MD CHEMISTRY & BLOOD GAS OR DERABLES Final Result Performing Organization Address [facility] Phone Number [facility] [address] [place] [address] * US FOLLOW-UP OB (06/18/2013 18:37 EST) Anatomical Region Laterality Modality Other 06/18/2013 18:3 7 EST 07/16/2013 11:58 EST Narrative 07/16/2013 11:58 EST Indication: Maternal disease: Diabetes, pregestational type 1. PTUA. History: Age: 32 years. : 6 Para: 3. Previous pregnancies: Children born at term: 3. Abortions: 2. LMP known. Current : Pre- data: Weight 118 lbs. Height 5 ft 1 ins. BMI 22.1. Dating: LMP: 12/22/2012 EDC: 09/28/2013 GA by LMP: 25w3d Current Scan on: 06/18/2013 EDC: 09/28/2013 GA by current scan: 25w3d Best Overall Assessment: 02/15/2013 EDC: 09/28/2013 Assessed GA: 25w3d The calculation of the gestational age by current scan was based on BPD, HC, AC, FL and HUM. The Best Overall Assessment is based on the LMP. General Evaluation: heart activity: Present. heart rate: 141 bpm. Presentation: breech. movement: visible. Amniotic Fluid: Normal. MELIA ??16.2 cm. Placenta: Posterior. Anatomy Scan: Pitts gestation. Biometry: BPD 66.8 mm 87th% 26w6d (26w1d to 27w5d) HC 240.9 mm 54th% 26w1d (24w1d to 28w2d) AC 207.8 mm 38th% 25w2d (24w4d to 26w0d) FL 43.6 mm 10th% 24w2d (22w2d to 26w3d) OFD 84.2 mm 60th% 25w5d HUM 40.5 mm 22nd% 24w2d LLV 7.0 mm HC/AC Ratio 1.159 ??71st% FL/AC Ratio 0.210 ??n/a BPD/FL Ratio 1.532 ??92nd% EFW (lbs/oz) 1 lbs 11 ozs EFW (g) 773 g ??13th% Anatomy: Head: head shape appears normal. Gastrointestinal Tract: Stomach appears normal. Kidneys / Adrenal Glands: Bilateral kidneys appear normal. Bladder: bladder appears normal in size and shape. Report Summary: Impression: [id number] Follow-up obstetrical ultrasound This is a pitts gestation. biometry is consistent with prior dating. Except where noted above, the anatomy was not reviewed in detail as this is a follow-up study and the anatomy was previously assessed. Normal fluid and movement are noted. Recommendations: Admission to L+D Procedure Note 07/16/2013 Indication: Maternal disease: Diabetes, pregestational type 1. PTUA. History: Age: 32 years. : 6 Para: 3. Previous pregnancies: Children born at term: 3. Abortions: 2. LMP known. Current : Pre- data: Weight 118 lbs. Height 5 ft 1 ins. BMI 22.1. Dating: LMP: 12/22/2012 EDC: 09/28/2013 GA by LMP: 25w3d Current Scan on: 06/18/2013 EDC: 09/28/2013 GA by current scan: 25w3d Best Overall Assessment: 02/15/2013 EDC: 09/28/2013 Assessed GA: 25w3d The calculation of the gestational age by current scan was based on BPD, HC, AC, FL and HUM. The Best Overall Assessment is based on the LMP. General Evaluation: heart activity: Present. heart rate: 141 bpm. Presentation: breech. movement: visible. Amniotic Fluid: Normal. MELIA 16.2 cm. Placenta: Posterior. Anatomy Scan: Pitts gestation. Biometry: BPD 66.8 mm 87th% 26w6d (26w1d to 27w5d) HC 240.9 mm 54th% 26w1d (24w1d to 28w2d) AC 207.8 mm 38th% 25w2d (24w4d to 26w0d) FL 43.6 mm 10th% 24w2d (22w2d to 26w3d) OFD 84.2 mm 60th% 25w5d HUM 40.5 mm 22nd% 24w2d LLV 7.0 mm HC/AC Ratio 1.159 71st% FL/AC Ratio 0.210 n/a BPD/FL Ratio 1.532 92nd% EFW (lbs/oz) 1 lbs 11 ozs EFW (g) 773 g 13th% Anatomy: Head: head shape appears normal. Gastrointestinal Tract: Stomach appears normal. Kidneys / Adrenal Glands: Bilateral kidneys appear normal. Bladder: bladder appears normal in size and shape. Report Summary: Impression: [id number] Follow-up obstetrical ultrasound This is a pitts gestation. biometry is consistent with prior dating. Except where noted above, the anatomy was not reviewed in detail as this is a follow-up study and the anatomy was previously assessed. Normal fluid and movement are noted. Recommendations: Admission to L+D Sonya Joyce MD IMG LD ORDERABLES Final Resul t * GLUCOSE, GLUCOMETER (06/18/2013 18:21 EST) Glucose, Fingerstick 88 70 - 100 mg/dl [facility] Reel Repairer ID [id number] [facility] Comment:Test Performed by [facility] 06/18/2013 18:2 1 EST 06/18/2013 18:23 EST Neil Linares MD CHEMISTRY & BLOOD GAS OR DERABLES Final Result [facility] [address] [place] [address] * (ABNORMAL) GLUCOSE, GLUCOMETER (06/18/2013 17:17 EST) Glucose, Fingerstick 126(H) 70 - 100 mg/dl [facility] Reel Repairer ID [id number] [facility] Comment:Test Performed by [employer] 06/18/2013 17:1 7 EST 06/18/2013 17:39 EST Neil Linares MD CHEMISTRY & BLOOD GAS OR DERABLES Final Result Performing Organization Address City/[facility]/ZIP Co de Phone Number [facility] [address] [place] [address] * BLOOD BANK SPECIMEN HOLD (06/18/2013 16:20 EST) Hold BB Spec will exp at 23:59, 3 days from collect date [facility] Comment:SAMPLE DRAWN 06/18/13 06/21/13 EXP 23:59 Blood specimen (specimen) 06/18/2013 16:20 EST Sonya Joyce MD BLOOD BANK TESTS Final Result Performing Organization Address [facility] Co de Phone Number [facility] [address] [place] [address] * GLUCOSE, GLUCOMETER (06/18/2013 15:38 EST) Pathologist [facility] Glucose, Fingerstick 70 70 - 100 mg/dl [facility] Reel Repairer ID [id number] [facility] Comment:Test Performed by [facility] 06/18/2013 15:3 8 EST 06/18/2013 15:49 EST Neil Linares MD CHEMISTRY & BLOOD GAS OR DERABLES Final Result Performing Organization Address [facility] Co de Phone Number [facility] [address] [place] [address] * (ABNORMAL) GROUP B STREPTOCOCCUS MOLECULAR DETECTION (06/18/2013 14:33 EST) [facility] Group B Streptococcus Molecular Detection GROUP B BETA STREPTOCOCCAL DNA detected by PCR.(A) [facility] Specimen of unknown material (specimen) TOPOGRAPHY UNKNOWN / Unknown 06/18/2013 14:33 EST 06/18/2013 17:22 EST Sonya Joyce MD MICROBIOLOGY - GENERAL ORDERABLE S Final Result Performing Organization Address City/[facility] Co de Phone Number [facility] [address] [place] [address] * UA REFLEX (06/18/2013 14:00 EST) UA Billing Microscopic not indicated. [facility] 06/18/2013 14:0 0 EST 06/18/2013 14:14 EST Sonya Joyce MD URINALYSIS ORDERABLES Final Resu lt Performing Organization Address [facility] Co de Phone Number [facility] [address] [place] [address] * (ABNORMAL) DIFFERENTIAL (06/18/2013 14:00 EST) % Neutrophils 67.8 45.5 - 79.7 % [facility] % Lymphocytes 25.4 15.0 - 46.8 % [facility] % Monocytes 5.0 1.8 - 12.0 % [facility] % Eosinophils 0.8 0.6 - 6.9 % [facility] % Basophils 1.0 0.2 - 1.4 % [facility] ABS Neutrophils 9.25(H) 2.20 - 8.85 K/cmm [facility] ABS Lymphs 3.45(H) 1.09 - 3.30 K/cmm [facility] ABS Monocytes 0.68 0.1 - 0.8 K/cmm [facility] ABS Eosinophils 0.10 0.03 - 0.61 K/cmm [facility] ABS Basophils 0.13(H) 0.01 - 0.11 K/cmm [facility] Type of Diff: Automated [facility] 06/18/2013 14:0 0 EST 06/18/2013 14:15 EST Sonya Joyce MD HEMATOLOGY & PF4 ORDERABLES Thu l Result Performing Organization Address [facility] Co de Phone Number [facility] [address] [place] [address] * (ABNORMAL) HEMAGRAM (06/18/2013 14:00 EST) WBC 13.61(H) 4.0 - 12.4 K/cmm [facility] RBC 4.12 3.86 - 5.04 M/cmm [facility] Hemoglobin 12.5 11.6 - 15.2 gm/dl [facility] HCT 35.8 34.9 - 44.4 % [facility] MCV 87 81 - 98 fl [facility] MCH 30.4 26.7 - 33.3 pg [facility] MCHC 35.0 32.1 - 35.9 gm/dl [facility] PLT 252 141 - 320 K/cmm [facility] RDW-CV 13.2 11.7 - 14.6 % [facility] 06/18/2013 14:0 0 EST 06/18/2013 14:15 EST Sonya Joyce MD HEMATOLOGY & PF4 ORDERABLES Thu l Result Performing Organization Address [facility] Co de Phone Number [facility] [address] [place] [address] * URINE CULTURE IF UA POSITIVE - NON POCT URINALYSIS ONLY (06/18/2013 14:00 EST) Culture if Indicated Culture not indicated by urinalysis results. [facility] Urine specimen (specimen) URINE / Unknown 06/18/2013 14:00 EST 06/18/2013 14:14 EST Sonya Joyce MD MICROBIOLOGY - GENERAL ORDERABLE S Final Result Performing Organization Address [facility] de Phone Number [facility] [address] [place] [address] * (ABNORMAL) URINALYSIS (06/18/2013 14:00 EST) Color, UA Yellow [facility] Clarity, UA Clear [facility] Glucose, UA Neg Neg [facility] Bilirubin, UA Neg Neg [facility] Ketones, UA 1+(A) Neg [facility] Specific [place], Urine 1.010 1.001 - 1.035 [facility] Blood, UA Neg Neg [facility] pH, UA 7.0 4.6 - 8.0 [facility] Protein, UA Neg Neg [facility] Urobilinogen, UA 0.2 0.2 - 1.0 E.U./dl [facility] Nitrite, UA Neg Neg [facility] Leuk Esterase Neg Neg [facility] Urine specimen (specimen) URINE / Unknown 06/18/2013 14:00 EST 06/18/2013 14:14 EST Sonya Joyce MD URINALYSIS ORDERABLES Final Resu lt Performing Organization Address City/[facility]/ZIP Co de Phone Number [facility] [address] [place] [address] * (ABNORMAL) C-REACTIVE PROTEIN (06/18/2013 14:00 EST) C-Reactive Protein 1.3(H) <1.0 mg/dl [facility] Blood specimen (specimen) 06/18/2013 14:00 EST 06/18/2013 14:15 EST Sonya Joyce MD CHEMISTRY & BLOOD GAS ORDERABLES Final Result Performing Organization Address City/[facility] Co de Phone Number [facility] [address] [place] [address] documented in this encounter Visit Diagnoses Diagnosis Supervision of other high-risk (V23.89)- Primary Supervision of other high-risk Diabetes mellitus ([facility]) Type II or unspecified type diabetes mellitus without mention of complication, not stated as uncontrolled uterine contractions Threatened premature labor, unspecified as to episode of care documented in this encounter Administered Medications Inactive Administered Medications - up to 3 most recent administrations Medication Order MAR Action Action Date Dose Rate Site betamethasone (CELESTONE SOLUSPAN) 6 mg/mL injection 12 mg 12 mg, intramuscular, EVERY 24 HOURS, 2 doses, First dose on Tue06/18/13 at 1515, Last dose on Tue06/19/13 at 1515, Routine Given 06/19/2013 15:06 EST 12 mg Given 06/18/2013 15:05 EST 12 mg Left Upper Outer Quadrant indomethacin (INDOCIN) capsule 50 mg 50 mg, oral, NOW X1, 1 dose, On Tue06/18/13 at 1515, Routine Given 06/18/2013 15:30 EST 50 mg insulin aspart (NOVOLOG FLEXPEN) injection 2 Units 2 Units, subcutaneous, NOW X1, 1 dose, On Tue06/19/13 at 0330, Routine Given 06/19/2013 3:21 EST 2 Units insulin aspart (NOVOLOG FLEXPEN) injection 3 Units 3 Units, subcutaneous, NOW X1, 1 dose, On Tue06/19/13 at 1030, Routine Given 06/19/2013 10:13 EST 3 Units insulin aspart (NOVOLOG FLEXPEN) injection 4 Units 4 Units, subcutaneous, NOW X1, 1 dose, On Tue06/18/13 at 2145, Routine Given 06/18/2013 21:44 EST 4 Units insulin aspart (NOVOLOG FLEXPEN) injection 6 Units 6 Units, subcutaneous, NOW X1, 1 dose, On Tue06/19/13 at 1315, Routine Given 06/19/2013 13:22 EST 6 Units insulin aspart (NOVOLOG FLEXPEN) injection subcutaneous, 3 TIMES DAILY WITH MEALS, First dose on Tue06/18/13 at 1800, Until Discontinued, STAT Given 06/19/2013 13:20 EST 5 Units Given 06/19/2013 7:20 EST 7 Units Given 06/18/2013 18:51 EST 8 Units insulin glargine (LANTUS SOLOSTAR) injection pen 22 Units 22 Units, subcutaneous, ONCE DAILY L.A. INSULIN, First dose on Tue06/19/13 at 1000, Until Discontinued, Routine Given 06/19/2013 7:20 EST 22 Units insulin glargine (LANTUS SOLOSTAR) injection pen 3 Units 3 Units, subcutaneous, Once (Without Time Specified), 1 dose, Starting on Tue06/19/13 at 0830, Until Tue06/19/13 at 0833, Routine Given 06/19/2013 8:33 EST 3 Units lactated ringers (LR) infusion 150-200 mL/hr, intravenous, CONTINUOUS, Starting on Tue06/18/13 at 1400, Until Tue06/18/13 at 1516, Routine New Bag 06/18/2013 16:04 EST 150 mL/hr 150 mL/hr New Bag 06/18/2013 14:20 EST 200 mL/hr 200 mL/hr sodium chloride 0.9 % flush 3 mL 3 mL, intravenous, EVERY 8 HOURS, First dose on Tue06/18/13 at 1800, Until Discontinued, Routine Given 06/19/2013 12:15 EST 3 mL Given 06/18/2013 21:02 EST 3 mL sucralfate (CARAFATE) suspension 1 g 1 g, oral, EVERY 6 HOURS, First dose on Tue06/18/13 at 1500, Until Discontinued, Routine Given 06/18/2013 15:23 EST 1 g documented in this encounter Active and Recently Administered Medications Times are shown in EST. Scheduled Medication Order 06/17/2013 06/18/2013 06/19/2013 betamethasone (CELESTONE SOLUSPAN) 6 mg/mL injection 12 mg (COMPLETED) 12 mg, intramuscular, EVERY 24 HOURS, 2 doses, First dose on Tue06/18/13 at 1515, Last dose on Tue06/19/13 at 1515, Routine 1505 (Given - Provider: Cecily Bowers RN) 1506 (Given - Provider: Leonela Nugent RN) indomethacin (INDOCIN) capsule 50 mg (COMPLETED)(Linked Group 1) 50 mg, oral, NOW X1, 1 dose, On Tue06/18/13 at 1515, Routine 1530 (Given - Provider: Jess Martinez RN) insulin aspart (NOVOLOG FLEXPEN) injection 2 Units (COMPLETED) 2 Units, subcutaneous, NOW X1, 1 dose, On Tue06/19/13 at 0330, Routine 0321 (Given - Provid er: Hawa Shukla) insulin aspart (NOVOLOG FLEXPEN) injection 3 Units (COMPLETED) 3 Units, subcutaneous, NOW X1, 1 dose, On Tue06/19/13 at 1030, Routine 1013 (Given - Provid er: Leonela Nugent RN) insulin aspart (NOVOLOG FLEXPEN) injection 4 Units (COMPLETED) 4 Units, subcutaneous, NOW X1, 1 dose, On Tue06/18/13 at 2145, Routine 2144 (Given - Provider: Hawa Shukla) insulin aspart (NOVOLOG FLEXPEN) injection 6 Units (COMPLETED) 6 Units, subcutaneous, NOW X1, 1 dose, On Tue06/19/13 at 1315, Routine 1322 (Given - Provid er: Leonela Nugent RN) insulin aspart (NOVOLOG FLEXPEN) injection (CANCELED) subcutaneous, 3 TIMES DAILY WITH MEALS, First dose on Tue06/18/13 at 1800, Until Discontinued, STAT 1851 (Given - Provider: Jess Martinez, RN) 0720 (Given - Provider: Hawa Shukla)1320 (Given - Provider: Leonela Nugent RN)1700 (Due) insulin glargine (LANTUS SOLOSTAR) injection pen 22 Units (CANCELED) 22 Units, subcutaneous, ONCE DAILY L.A. INSULIN, First dose on Tue06/19/13 at 1000, Until Discontinued, Routine 0720 (Given - Provid er: Hawa Shukla)1022 (Not Given - Provider: Leonela Nugent RN - Reason: Other - Comment: This medication given at 0722 per pt request) insulin glargine (LANTUS SOLOSTAR) injection pen 3 Units (COMPLETED) 3 Units, subcutaneous, Once (Without Time Specified), 1 dose, Starting on Tue06/19/13 at 0830, Until Tue06/19/13 at 0833, Routine 0833 (Given - Provid er: Leonela Nugent RN) sodium chloride 0.9 % flush 3 mL (CANCELED) 3 mL, intravenous, EVERY 8 HOURS, First dose on Tue06/18/13 at 1800, Until Discontinued, Routine 2102 (Given - Provider: Hawa Shukla) 0143 (Canceled Entry - Provider: Hawa Shukla)1215 (Given - Provider: Leonela Nugent RN)1600 (Due) sucralfate (CARAFATE) suspension 1 g (CANCELED) 1 g, oral, EVERY 6 HOURS, First dose on Tue06/18/13 at 1500, Until Discontinued, Routine 1523 (Given - Provider: Jess Martinez, EDITH) Continuous Medication Order 06/17/2013 06/18/2013 06/19/2013 lactated ringers (LR) infusion (CANCELED) 150-200 mL/hr, intravenous, CONTINUOUS, Starting on Tue06/18/13 at 1400, Until Tue06/18/13 at 1516, Routine 1420 (New Bag - Provider: Cecily Bowers, EDITH)1604 (New Bag - Provider: Mary Dennis RN) Linked Groups Order Group 1: indomethacin (INDOCIN) capsule 50 mg (COMPLETED)Jump to med 50 mg, oral, NOW X1, 1 dose, On 06/18/13 at 1515, Routine Followed by indomethacin (INDOCIN) capsule 25 mg (CANCELED) 25 mg, oral, EVERY 6 HOURS, First dose on Tue06/19/13 at 0000, Until Discontinued, Routine documented in this encounter Orders Medications Ordered That Kelvin ht Not Have Been Administered Count Last Ordered Date First Ordered Date acetaminophen (TYLENOL) tablet 650 mg 1 carboprost (HEMABATE) intram uscular injection 250 mcg 1 06/18/2013 dextrose 5 %-0.45 % sodium c hloride infusion 1 06/18/2013 dextrose 50 % solution 12.5 g 1 06/18/2013 glucagon (human recombinant) injection 1 mg 1 06/18/2013 ibuprofen (MOTRIN) tablet 400 mg 06/18/19 indomethacin (INDOCIN) capsule 25 mg 06/06 insulin aspart (NOVOLOG FLEXPEN) injection 1 06/18/2013 methylergonovine (METHERGINE ) injection 200 mcg 06/18/2013 misoprostol (CYTOTEC) tablet 200 mcg 06/06 misoprostol (CYTOTEC) tablet 800 mcg 06/06 oxytocin in lactated ringers 30 units/500 ml 2 06/18/2013 Diet Count Last Ordered Date First Orde red Date DISCHARGE DIET 06/19/2013 Nursing Count Last Ordered Date First Orde red Date ACTIVITY INSTRUCTIONS 06/19/2013 BATHING INSTRUCTIONS 06/19/2013 Admission Count Last Ordered Date First Orde red Date STATUS: INPATIENT ACUTE ADMISSION 1 014 Transfer Count Last Ordered Date First Orde red Date NOTIFY PPS OF DISCHARGE COMPLETE 06/19/19 14 PPS NOTIFICATION OF PATIENT ARRIVAL ON UNIT 1 06/18/2013 PPS NOTIFICATION OF SENDING PATIENT OFF THE UNIT 06/18/2013 TEACHING SERVICE 06/18/2013 TRANSFER PATIENT 06/18/2013 Discharge Count Last Ordered Date First Orde red Date DISCHARGE PATIENT 1 06/19/2013 Legal Count Last Ordered Date First Orde red Date MISCELLANEOUS DISCHARGE INSTRUCTIONS 06/06 documented in this encounter Care Teams Telephone Sales Representative Relationship Specialty Start Date End Date Huseyin Zazueta MD [address] [place] [address] PCP - General 07/16/09 documented as of this encounter
--- OUTSIDE RECORDS SUMMARY | 2024-05-02 15:21 | XMS_ITS | Encounter Summary ---
Author Organization [facility] Address [address] [place] [address] Care Team Providers Care Medical Doctor Md Name Role Phone Huseyin Zazueta MD Primary Care Provider [phone] Reason for Visit * Reason Onset Date Comments Diabetes 03/05/2013 Encounter Details Date Type Department Care Team (Late st Contact Info) Description 03/05/[address] [facility] Endocrinology - [address] [phone] Lacie Nichole RN CDE Diabetes Social History [...] Telephone Encounter - Lacie Nichole RN - 03/05/2013 1325 EDT email from pt that i forwarded directly over to dr manriquez: Khurram Medellin, Not doing too well these days. I think I need to reduce my lantus. The lows are getting unbearable and they exhaust me???. I had a cold at the beginning of last week but once it cleared, I started to have a hard time. Current dose is 27 Lantus in the Morning and a 1:8 Novolog Please advise This is dr manriquez's email to pt: Autumn Hardy, Any chance you could split the Lantus dose or is it too hard to remember? If you can split it, maybe try 13 in the morning and 12 at night (roughly 12 hours apart, such as at 7 am and 7 pm or something like that) and see if we can get rid of the lows. If not, go down to 25 for a few days, then report back. Sorry you???re having such a hard time. Take care, Carlin Manriquez This is pt's reply: Not a problem. I???ll start by splitting it (I used to do that anyway) and let you know how it works out before I go to the one dose of 25 Carolyn Portillo documented in this encounter Plan of Treatment Not on file documented as of this encounter Visit Diagnoses Not on filedocumented in this encounter Care Teams Medical Doctor Md Relationship Specialty Start Date End Date Huseyin Zazueta MD [address] [place] [address] PCP - General 07/16/09 documented as of this encounter
--- OUTSIDE RECORDS SUMMARY | 2024-05-02 15:21 | XMS_ITS | Encounter Summary ---
Author Organization [facility] Address [address] [place] [address] Care Team Providers Care Mechatronics Technologist Name Role Phone Huseyin Zazueta MD Primary Care Provider Encounter Details Date Type Department Care Team (Late st Contact Info) Description 03/30/2013 Phlebotomy Only [facility] [address] [place] [address] Tank Car Repairer, Outpatient Type I (juvenile type) diabetes mellitus [...] Priority Date/Time Associated Diagnosis Comments FRUCTOSAMINE Routine 03/30/2013 8:36 EDT Type I (juvenile type) diabetes mellitus without mention of complication, uncontrolled documented in this encounter Results * FRUCTOSAMINE (03/30/2013 8:36 EDT) Fructosamine, S 249 200 - 285 mcmol/L [facility] Comment: Performed by: [facility] Amitree O'Brien, [address], [place] [address], Social Economist: Sonali Navarro, Ph.D. Blood specimen (specimen) 03/30/2013 8:36 EDT 03/30/2013 8:51 EDT us Carlin Manriquez MD CHEMISTRY & BLOOD GAS ORDERABL ES Final Result Performing Organization Address City/State/[facility] Co de Phone Number [facility] [address] [place] [address] documented in this encounter Visit Diagnoses Diagnosis Type I (juvenile type) diabetes mellitus without mention of complication, uncontrolled documented in this encounter Care Teams Mechatronics Technologist Relationship Specialty Start Date End Date Huseyin Zazueta MD [address] [place] [address] PCP - General 07/16/09 documented as of this encounter
--- OUTSIDE RECORDS SUMMARY | 2024-05-02 15:21 | XMS_ITS | Encounter Summary ---
Author Organization [facility] Address [address] [place] [address] Care Team Providers Care Sewing Machine Operator Zipper Name Role Phone Huseyin Zazueta MD Primary Care Provider [phone] Encounter Details Date Type Department Care Team (Latest Contact Info) Description 03/30/2013 8:29 EDT - 03/30/2013 23:59 EDT Hospital Encounter [facility] [address] [place] [address] Unknown, Provider, MD Discharge Disposition: Home or [...] route) route daily. ICD-9: 648.03 400 Each 01/26/2013 4 glucagon (GLUCAGON EMERGENCY) 1 mg injection Inject 1 mg into the skin once for 1 dose. 2 Each 6 07/07/2012 3 glucagon (GLUCAGON EMERGENCY) 1 mg injection Use as directed. 2 Each 07/07/2012 3 insulin aspart (NOVOLOG FLEXPEN) 100 unit/mL injectable pen Inject into skin with meals up to 50 units daily. Titrating up during . 45 mL 3 02/27/2013 4 insulin aspart (NOVOLOG) 100 unit/mL CartridgeIndicatio ns:Type 1 diabetes mellitus ([facility]) Uses 8:1 CHO ratio Usually 5-7 units/meals 2 Box 8 12/05/2012 3 insulin glargine (LANTUS SOLOSTAR) 100 unit/mL (3 [...] if vomiting. 50 Each 5 05/09/2012 4 lancets (ONE TOUCH DELICA) 33 gauge Misc Use 15 lancet as directed daily. 1300 Each 3 02/27/2013 4 norelgestromin-eth inyl estradiol (ORTHO EVRA) 150-20 mcg/[address] 1 Patch onto the skin every 7 days. Apply new patch on same day of week for 3 weeks. No patch week 4. 3 VIT/IRON FUMARATE/FA ( ORAL) Take by mouth. 12/01 6 simvastatin (ZOCOR) 20 mg tablet Take 20 mg by mouth daily. 4 documented as of this encounter Discharge Disposition Disposition Code Departure Means Destination Home or Self Usp documented in this encounter Plan of Treatment Not on file documented as of this encounter Visit Diagnoses Not on filedocumented in this encounter Care Teams Sewing Machine Operator Zipper Relationship Specialty Start Date End Date Huseyin Zazueta MD [address] [place] [address] PCP - General 07/16/09 documented as of this encounter
--- OUTSIDE RECORDS SUMMARY | 2024-05-02 15:21 | XMS_ITS | Encounter Summary ---
Author Organization [facility] Address [address] [place] [address] Care Team Providers Care Upholstery Restorer Name Role Phone Huseyin Zazueta MD Primary Care Provider [phone] Encounter Details Date Type Department Care Team (Late st Contact Info) Description 06/07/2013 Phlebotomy Only [facility] [address] [place] [address] Load Out Supervisor, Outpatient Type I (juvenile type) diabetes mellitus [...] Priority Date/Time Associated Diagnosis Comments FRUCTOSAMINE Routine 06/07/2013 12:27 EST Type I (juvenile type) diabetes mellitus without mention of complication, uncontrolled documented in this encounter Results * FRUCTOSAMINE (06/07/2013 12:27 EST) Fructosamine, S 252 200 - 285 mcmol/L [facility] Comment: Performed by: [facility], [address], [place] [address], Material Flow Analyst: Sonali A. Cheryk, Ph.D. Blood specimen (specimen) 06/07/2013 12:27 EST 06/07/2013 12:45 EST us Carlin Manriquez MD CHEMISTRY & BLOOD GAS ORDERABL ES Final Result Performing Organization Address City/State/[facility] Co de Phone Number [facility] [address] [place] [address] documented in this encounter Visit Diagnoses Diagnosis Type I (juvenile type) diabetes mellitus without mention of complication, uncontrolled documented in this encounter Care Teams Upholstery Restorer Relationship Specialty Start Date End Date Huseyin Zazueta MD [address] [place] [address] PCP - General 07/16/09 documented as of this encounter
--- OUTSIDE RECORDS SUMMARY | 2024-05-02 15:21 | XMS_ITS | Encounter Summary ---
Author Organization [facility] Address [address] [place] [address] Care Team Providers Care Environmental Assistant Name Role Phone Huseyin Zazueta MD Primary Care Provider [phone] Reason for Visit * Reason Comments Routine Visit Encounter Details Date Type Department Care Team (Late st Contact Info) Description 07/02/2013 14:30 EST Routine [facility] Obstetrics & Midwifery - [address] [phone] Yodit Henderson MD [address] [place] [address], [address] [place] [address] GA: 27w3d Discharge Disposition: Auto Discharge Social History Tobacco [...] Sign Reading Time Taken Comments Blood Pressure 108/70 07/02/2013 1429 EST Pulse - - Temperature - - Respiratory Rate - - Oxygen Saturation - - Inhaled Oxygen Concentration - - Weight 60.3 kg (133 lb) 07/02/2013 1429 EST Height - - Body Mass Index 25.13 06/18/2013 1349 EST documented in this encounter Discharge Disposition Disposition Code Departure Means Destination Auto Discharge documented in this encounter Progress Notes * Yodit Henderson MD - 07/02/2013 1642 EST Subjective Carolyn Portillo is a 32 y.o. at 27w3d here for a routine visit. Was seen in L&D 2 wks ago for cramping; rec'd steriods. Movement:Present Contractions / Labor:None Vaginal Bleeding: None Leakage of Fluid: None: c/o wet underwear Objective Vitals: BP: 108/70 mmHg Weight : 60.328 kg (133 lb) Movement: Present Assessment 32 y.o. at 27w3d for a routine visit. Plan Supervision of other high-risk (V23.89) No contrax, increased pressure; underwear damp; GFm, no bleeding Planning on staying on lantus for now Diabetes mellitus in FBS running 100; 2 hr PP 140-60; will see endo today Smoker Contacted from study; has cut down to 2-3 cigs down Threatened labor, antepartum Pressure, no contrax srom check: no pool, equiv nitro, neg fern; cx 2 cm long/closed/high no MARLO development and no presenting part palp Discussed the signs and symptoms of pre-/term labor and when to call the office. Follow-up in 2 week(s). Yodit Henderson MD documented in this encounter Miscellaneous Notes * Assessment & Plan Note - Yodit Henderson MD - 07/02/2013 1518 ESTAssociated Problem(s): Threatened labor, antepartum (Resolved 11/04/2013) Pressure, no contrax srom check: no pool, equiv nitro, neg fern; cx 2 cm long/closed/high no MARLO development and no presenting part palp * Assessment & Plan Note - Yodit Henderson MD - 07/02/2013 1512 ESTAssociated Problem(s): Smoker Contacted from study; has cut down to 2-3 cigs down * Assessment & Plan Note - Yodit Henderson MD - 07/02/2013 1511 ESTAssociated Problem(s): Diabetes mellitus in (Resolved 11/04/2013) FBS running 100; 2 hr PP 140-60; will see endo today * Assessment & Plan Note - Yodit Henderson MD - 07/02/2013 1510 ESTAssociated Problem(s): Supervision of other high-risk (Resolved 11/04/2013) No contrax, increased pressure; underwear damp; GFm, no bleeding Planning on staying on lantus for now documented in this encounter Plan of Treatment Not on file documented as of this encounter Visit Diagnoses Diagnosis Supervision of other high-risk (V23.89)- Primary Supervision of other high-risk Diabetes mellitus in Diabetes mellitus of mother, complicating , childbirth, or the puerperium, unspecified as to episode of care Threatened labor, antepartum Threatened premature labor, antepartum documented in this encounter Care Teams Environmental Assistant Relationship Specialty Start Date End Date Huseyin Zazueta MD [address] [place] [address] PCP - General 07/16/09 documented as of this encounter
--- OUTSIDE RECORDS SUMMARY | 2024-05-02 15:21 | XMS_ITS | Encounter Summary ---
Author Organization [facility] Address [address] [place] [address] Care Team Providers Care Containers Sales Representative Name Role Phone Huseyin Zazueta MD Primary Care Provider Encounter Details Date Type Department Care Team (Late st Contact Info) Description 03/23/2013 Orders Only [facility] Obstetrics & Midwifery - [facility] [address] [place] [address] Beatriz Hebert RN Need for prophylactic vaccination and inoculation against influenza (Primary Dx) Social History Tobacco Use Types [...] this encounter Visit Diagnoses Diagnosis Need for prophylactic vaccination and inoculation against influenza- Primary documented in this encounter Care Teams Containers Sales Representative Relationship Specialty Start Date End Date Huseyin Zazueta MD [address] [place] [id number] PCP - General 07/16/09 documented as of this encounter
--- OUTSIDE RECORDS SUMMARY | 2024-05-02 15:21 | XMS_ITS | Encounter Summary ---
Author Organization [facility] Address [address] [place] [address] Care Team Providers Care Emt Basic Name Role Phone Huseyin Zazueta MD Primary Care Provider [phone] Reason for Visit * Reason Comments Routine Visit Encounter Details Date Type Department Care Team (Late st Contact Info) Description 03/30/2013 9:00 EDT Routine [facility] Obstetrics & Midwifery - [address] [phone] Johnna Gregory MD [address] [place] [id number] GA: 14w0d Social History Tobacco Use Types Packs/Day Years [...] Sign Reading Time Taken Comments Blood Pressure 102/70 03/30/2013 0851 EDT Pulse - - Temperature - - Respiratory Rate - - Oxygen Saturation - - Inhaled Oxygen Concentration - - Weight 57.9 kg (127 lb 9.6 oz) 03/30/2013 0851 E DT Height - - Body Mass Index 23.72 02/15/2013 1456 EDT documented in this encounter Progress Notes * Yodit Henderson MD - 03/30/2013 1144 EDT MFMS Attending I discussed the pt with at the time of the visit. I agree with impression and plan as above. Yodit Henderson MD * Johnna Gregory MD - 03/30/2013 0924 EDT Subjective Carolyn Portillo is a 32 y.o. at 14w0d here for a routine visit. Additional Notes: Feeling well, no complaints. Movement:None Contractions / Labor:None Vaginal Bleeding: None Leakage of Fluid: None Objective Vitals: BP: 102/70 mmHg Weight : 57.879 kg (127 lb 9.6 oz) Movement: N/A Assessment 32 y.o. at 14w0d with Type 1 DM here for a routine visit. Plan Diabetes in Type 1 DM, following with endocrine. No longer having dramatic lows, feels much more stable than she was previously. Follows with Dr Manriquez. Doesn't have log for me today but states reasonable control. Supervision of other high-risk Doing well, no current complaints. Detailed and echo scheduled. Has declined all aneuploidy screening. Discussed the signs and symptoms of pre-/term labor and when to call the office. Follow-up in 4 weeks Johnna Gregory MD * Abbie Lowery LPN - 03/30/2013 0921 EDT Patient Education Topic: Flu Vaccine Injection Method: Handout Taught to: Patient Barriers: None Outcomes: independent and verbalized understanding Pt tolerated injection well with no complaints. I was supervised by Dr. Gregory who was present and immediately available in the office suite. Signature:Abbie Lowery LPN documented in this encounter Miscellaneous Notes * Assessment & Plan Note - Johnna Gregory MD - 03/30/2013 0923 EDTAssociated Problem(s): Supervision of other high-risk (Resolved 11/04/2013) Doing well, no current complaints. Detailed and echo scheduled. Has declined all aneuploidy screening. * Assessment & Plan Note - Johnna Gregory MD - 03/30/2013 0915 EDTAssociated Problem(s): Diabetes mellitus in (Resolved 11/04/2013) Type 1 DM, following with endocrine. No longer having dramatic lows, feels much more stable than she was previously. Follows with Dr Manriquez. Doesn't have log for me today but states reasonable control. documented in this encounter Plan of Treatment Not on file documented as of this encounter Visit Diagnoses Diagnosis Supervision of other high-risk (V23.89)- Primary Supervision of other high-risk documented in this encounter Historical Medications * This list may reflect changes made after this encounter. VIT/IRON FUMARATE/FA ( ORAL) Take by mouth. 12/02/2015 added in this encounter Orders Immunization/Injection Count Last Ordered Date First Ordered Date INFLUENZA VACCINE =>3YO SPLI T PRESERVATIVE FREE IM 1 03/30/2013 documented in this encounter Care Teams Emt Basic Relationship Specialty Start Date End Date Huseyin Zazueta MD [address] [place] [address] PCP - General 07/16/09 documented as of this encounter
--- OUTSIDE RECORDS SUMMARY | 2024-05-02 15:21 | XMS_ITS | Encounter Summary ---
Author Organization [facility] Address [address] [place] [address] Care Team Providers Care Photographer Finish Name Role Phone Huseyin Zazueta MD Primary Care Provider [phone] Reason for Visit * Reason Onset Date Comments Diabetes 03/16/2013 Encounter Details Date Type Department Care Team (Late Contact Info) Description 03/16/2013 Telephone [facility] Endocrinology - [address] [phone] Lacie Nichole, RN CDE Diabetes Social History Tobacco [...] * Telephone Encounter - Carlin Manriquez - 03/19/2013 1117 EDT I sent Hayley an email after leaving a message on her work voice mail: Autumn Hardy, I saw the glucoses that Lacie downloaded for you Tuesday. I completely agree we need to get rid of these bark peeler/late night lows. From my last note it looked like you were splitting your Lantusto twice daily dosing but per Lacie's note from Tuesday looks like you just moved it to morning dosing. If you are doing 25 units each morning and you and Lacie agreed to reduce it to 21, I think that is fine. The alternative would be to continue twice daily dosing and keep the morning dose the same but reduce the night dose. Per my notes he were using 13 in the morning and 12 at night, and if that is what you are doing I would go down to 9 at night. In any case it will still give you around 21 or 22 units per day. Please send us some more numbers in the next couple of days via e-mail to let us know that was gotten rid of these lows. I hope you???re feel ok in general. Take Carlin cortez * Telephone Encounter - Lacie Nichole RN - 03/16/2013 9400 EDT Pt came in for labs and brought meter for download. Meter download shows frequent significant noctural lows plus a few scattered daytime lows plus highpostprandial readings Per pt current lantus is 25 units in am and novolog 1:12 mostly for snacks. Not eating scheduled meals. Pt has ketosticks at home Pt at 12 weeks gestation Plan: 1. Decrease lantus to 21 units 2. Use 1:10 carb ratio for snacks 3. Call Tuesday with update but call clinic over weekend if needed 4.Pt has glucagon at home and with her Pt verbalized understanding documented in this encounter Plan of Treatment Not on file documented as of this encounter Visit Diagnoses Not on filedocumented in this encounter Care Teams Photographer Finish Relationship Specialty Start Date End Date Huseyin Zazueta MD [address] [place] [address] PCP - General 07/16/09 documented as of this encounter
--- OUTSIDE RECORDS SUMMARY | 2024-05-02 15:21 | XMS_ITS | Encounter Summary ---
Author Organization [facility] Address [address] [place] [address] Care Team Providers Care Eggs Inspector Name Role Phone Huseyin Zazueta MD Primary Care Provider Encounter Details Date Type Department Care Team (Latest Contact Info) Description 06/07/2013 12:23 EST - 06/07/2013 23:59 EST Hospital Encounter [facility] [address] [place] [address] Unknown, Provider, Carlin Woody MD [address] [place] [address], [address] [address] Discharge Disposition: Auto Discharge Social [...] Procedure Name Priority Date/Time Associated Diagnosis Comments SHELTER FOLLOW-UP 08/17/2013 8:52 EDT documented in this encounter Results * SHELTER FOLLOW-UP (08/17/2013 8:52 EDT) Anatomical Region Laterality Modality Other 08/17/2013 8:52 EDT 08/17/2013 9:48 EDT Narrative 08/17/2013 9:48 EDT Indication: Maternal disease: Diabetes, pregestational type [...] LMP: 12/22/2012 EDC: 09/28/2013 GA by LMP: 34w0d Current Scan on: 08/17/2013 EDC: 10/03/2013 GA by current scan: 33w2d Best Overall Assessment: 02/15/2013 EDC: 09/28/2013 Assessed GA: 34w0d The calculation of the gestational age by current scan was based on BPD, HC, AC, FL and HUM. The Best Overall Assessment is based on the LMP. General Evaluation: heart activity: Present. heart rate: 163 bpm. Presentation: cephalic, Spine right. movement: visible. Amniotic Fluid: Normal. MELIA ??14.6 cm. Maximal vertical pocket 4.8 cm. Cord: 3 Vessels. Placenta: Posterior. Placenta Grade: Grade 2. Structure: normal. Anatomy Scan: Pitts gestation. Biometry: BPD 87.6 mm 84th% 35w3d (34w2d to 36w3d) HC 314.3 mm 45th% 35w2d (32w2d to 38w2d) AC 303.2 mm 62nd% 34w2d (33w2d to 35w2d) FL 59.0 mm <5th% 30w5d (27w6d to 33w5d) OFD 108.4 mm 33rd% 33w0d HUM 53.2 mm 6th% 31w1d VENTRp 5.6 mm n/a HC/AC Ratio 1.037 ??47th% FL/AC Ratio 0.195 ??n/a BPD/FL Ratio 1.485 ??90th% BPD/OFD Ratio 0.808 ??54th% EFW (lbs/oz) 4 lbs 14 ozs EFW (g) 2210 g ??27th% Anatomy: Head: suboptimal. Heart: 4-chamber seen. Gastrointestinal Tract: Stomach appears normal. Kidneys / Adrenal Glands: Bilateral kidneys appear normal. Bladder: bladder appears normal in size and shape. Summary of Ultrasound Findings: Transabdominal US. U/S machine: Proenza Schouer e8. U/S view: limited by late gestational age. Wellbeing Assessment: Amniotic fluid: Normal. MELIA: 14.6 cm. MVP: 4.8 cm. Q1: 4.8 cm. Q2: 3.5 cm. Q3: 2.8 cm. Q4: 3.5 cm. Report Summary: Impression: [id number] Follow-up obstetrical ultrasound This is a pitts gestation. biometry is consistent with prior dating. Except where noted above, the anatomy was not reviewed in detail as this is a follow-up study and the anatomy was previously assessed. Normal fluid and movement are noted. Recommendations: Follow-up with growth every 4 weeks. This follow-up has [...] 2210g , 4 lbs 14 ozs 27th%% Procedure Note 08/17/2013 Indication: Maternal disease: Diabetes, pregestational type 1. History: Age: 32 years. : 6 Para: 3. Previous pregnancies: Children born at term: 3. Abortions: 2. Living children: 3. LMP known. Current : Pre- data: Weight 118 lbs. Height 5 ft 1 ins. BMI 22.1. Medical History: Diabetes Mellitus: Start 2007, Classification: Diabetic Type 1, Class B. Dating: LMP: 12/22/2012 EDC: 09/28/2013 GA by LMP: 34w0d Current Scan on: 08/17/2013 EDC: 10/03/2013 GA by current scan: 33w2d Best Overall Assessment: 02/15/2013 EDC: 09/28/2013 Assessed GA: 34w0d The calculation of the gestational age by current scan was based on BPD, HC, AC, FL and HUM. The Best Overall Assessment is based on the LMP. General Evaluation: heart activity: Present. heart rate: 163 bpm. Presentation: cephalic, Spine right. movement: visible. Amniotic Fluid: Normal. MELIA 14.6 cm. Maximal vertical pocket 4.8 cm. Cord: 3 Vessels. Placenta: Posterior. Placenta Grade: Grade 2. Structure: normal. Anatomy Scan: Pitts gestation. Biometry: BPD 87.6 mm 84th% 35w3d (34w2d to 36w3d) HC 314.3 mm 45th% 35w2d (32w2d to 38w2d) AC 303.2 mm 62nd% 34w2d (33w2d to 35w2d) FL 59.0 mm <5th% 30w5d (27w6d to 33w5d) OFD 108.4 mm 33rd% 33w0d HUM 53.2 mm 6th% 31w1d VENTRp 5.6 mm n/a HC/AC Ratio 1.037 47th% FL/AC Ratio 0.195 n/a BPD/FL Ratio 1.485 90th% BPD/OFD Ratio 0.808 54th% EFW (lbs/oz) 4 lbs 14 ozs EFW (g) 2210 g 27th% Anatomy: Head: suboptimal. Heart: 4-chamber seen. Gastrointestinal Tract: Stomach appears normal. Kidneys / Adrenal Glands: Bilateral kidneys appear normal. Bladder: bladder appears normal in size and shape. Summary of Ultrasound Findings: Transabdominal US. U/S machine: Proenza Schouer e8. U/S view: limited by late gestational age. Wellbeing Assessment: Amniotic fluid: Normal. MELIA: 14.6 cm. MVP: 4.8 cm. Q1: 4.8 cm. Q2: 3.5 cm. Q3: 2.8 cm. Q4: 3.5 cm. Report Summary: Impression: [id number] Follow-up obstetrical ultrasound This is a pitts gestation. biometry is consistent with prior dating. Except where noted above, the anatomy was not reviewed in detail as this is a follow-up study and the anatomy was previously assessed. Normal fluid and movement are noted. Recommendations: Follow-up with growth every 4 weeks. This follow-up has [...] 2210g , 4 lbs 14 ozs 27th%% Johnna Gregory MD [facility] SHELTER ORDERABLES Final Re sult documented in this encounter Visit Diagnoses Not on filedocumented in this encounter Care Teams Eggs Inspector Relationship Specialty Start Date End Date Huseyin Zazueta MD [address] [place] [address] PCP - General 07/16/09 documented as of this encounter
--- OUTSIDE RECORDS SUMMARY | 2024-05-02 15:21 | XMS_ITS | Encounter Summary ---
Author Organization [facility] Address [address] [place] [address] Care Team Providers Care Program Control Analyst Name Role Phone Huseyin Zazueta MD Primary Care Provider [phone] Reason for Visit * Reason Comments Routine Visit Encounter Details Date Type Department Care Team (Late st Contact Info) Description 06/27/2013 16:00 EST Routine [facility] Obstetrics & Midwifery - [address] [phone] Candace Salas MD [address] [place] [address] GA: 26w5d Social History Tobacco Use Types Packs/Day Years [...] Sign Reading Time Taken Comments Blood Pressure 110/74 06/27/2013 1500 EST Pulse - - Temperature - - Respiratory Rate - - Oxygen Saturation - - Inhaled Oxygen Concentration - - Weight 60.3 kg (133 lb) 06/27/2013 1500 EST Height - - Body Mass Index 25.13 06/18/2013 1349 EST documented in this encounter Progress Notes * Candace Salas MD - 06/27/2013 1617 EST M ATTG S: Patient is a 32 y.o. 26w5d. Pt w/o LOF or VB. O: Vitals: BP: 110/74 mmHg Weight : 60.328 kg (133 lb) Movement: Present A/P:32 y.o. 26w5d : Threatened labor, antepartum Pt notes intermittent contractions -- increased frequency depending on activity. SVE --> closes/50/soft/post/-3 A/P Cervix is unchanged -- no evidence of PTL. Plan: OK to return to work. Candace Salas MD * Lyubov Mccallum, RN - 06/27/2013 1553 EST Lots of cramping Tuesday, yesterday and today much better. Denies leaking or bleeding. Headache today, comes and goes, did not respond to tylenol today. Endocrine managing blood sugars, getting better. Denies edema. documented in this encounter Miscellaneous Notes * Assessment & Plan Note - Candace Salas MD - 06/27/2013 1612 ESTAssociated Problem(s): Threatened labor, antepartum (Resolved 11/04/2013) Pt notes intermittent contractions -- increased frequency depending on activity. SVE --> closes/50/soft/post/-3 A/P Cervix is unchanged -- no evidence of PTL. Plan: OK to return to work. documented in this encounter Plan of Treatment Not on file documented as of this encounter Visit Diagnoses Diagnosis Threatened labor, antepartum- Primary Threatened premature labor, antepartum Supervision of other high-risk (V23.89) Supervision of other high-risk documented in this encounter Discontinued Medications Medication Sig Discontinue Reason Start Date End Da te simvastatin (ZOCOR) 20 mg tablet Take 20 mg by mouth daily. 06/27/2013 documented as of this encounter Care Teams Program Control Analyst Relationship Specialty Start Date End Date Huseyin Zazueta MD [address] [place] [address] PCP - General 07/16/09 documented as of this encounter
--- OUTSIDE RECORDS SUMMARY | 2024-05-02 15:21 | XMS_ITS | Encounter Summary ---
Author Organization [facility] Address [address] [place] [address] Care Team Providers Care Public Health Staff Nurse Name Role Phone Huseyin Zazueta MD Primary Care Provider [phone] Reason for Visit * Reason Onset Date Comments Diabetes 04/24/2013 Encounter Details Date Type Department Care Team (Late st Contact Info) Description 04/24/2013 Telephone [facility] Endocrinology - [address] [phone] Lacie Nichole RN CDE Diabetes Social History [...] Filled Start Date End Date glucagon (GLUCAGON EMERGENCY) 1 mg emergency injection kit Use as directed. 4 Kit 6 04/27/2013 12/31/2014 documented in this encounter Miscellaneous Notes * Telephone Encounter - Lacie Nichole RN - 04/24/2013 5104 EST email from pt: So it looks like the honey angel is over. My blood sugars aren't that great for the past few days. Lacie, could you please give me a call, I might be interested in talking about a pump... This is my reply: So it looks like the honey angel is over. My blood sugars aren't that great for the past few days. Lacie, could you please give me a call, I might be interested in talking about a pump... documented in this encounter Plan of Treatment Not on file documented as of this encounter Visit Diagnoses Not on filedocumented in this encounter Discontinued Medications Medication Sig Discontinue Reason Start Date End Da te glucagon (GLUCAGON EMERGENCY) 1 mg injection Inject 1 mg into the skin once for 1 dose. 07/07/2012 04/27/2013 glucagon (GLUCAGON EMERGENCY) 1 mg injection Use as directed. Reorder 07/07/2012 04/27/2013 documented as of this encounter Care Teams Public Health Staff Nurse Relationship Specialty Start Date End Date Hsueyin Zazueta MD [address] [place] [address] PCP - General 07/16/09 documented as of this encounter
--- OUTSIDE RECORDS SUMMARY | 2024-05-02 15:21 | XMS_ITS | Encounter Summary ---
Author Organization [facility] Address [address] [place] [address] Care Team Providers Care Certified Alcohol And Drug Counselor Name Role Phone Huseyin Zazueta MD Primary Care Provider [phone] Reason for Referral * FISCAL TECHNICIAN (Other (Specify in Question)) - Closed Specialty Diagnoses / Procedures Referred By Neva zacarias Referred To Contact Diagnoses Pre-existing type 1 diabetes mellitus in in third trimester Procedures SKILLED NURSING FOLLOW-UP Johnna Gregory MD Phone: tel: fax: Referral ID Status Reason Start Date Expiration Date Visits Re quested Visits Authorized [id number] Closed 06/22/2013 1 1 Reason for Visit * Reason Comments Routine Visit Encounter Details Date Type Department Care Team (Late st Contact Info) Description 06/22/2013 9:00 EST Routine [facility] Obstetrics & Midwifery - [facility] [address] [place], [place] [address] Johnna Gregory MD [address] [place] [id number] GA: 26w0d Social History Tobacco Use Types Packs/Day Years [...] Reading Time Taken Comments Blood Pressure 110/68 06/22/2013 0853 EST Pulse - - Temperature - - Respiratory Rate - - Oxygen Saturation - - Inhaled Oxygen Concentration - - Weight 60.8 kg (134 lb) 06/22/2013 0853 EST Height - - Body Mass Index 25.32 06/18/2013 1349 EST documented in this encounter Progress Notes * Seth Singh MD - 06/22/2013 1617 EST MFMS ATTENDING I discussed the patient with the fellow at the time of the visit. I agree with the findings and theplan of care documented in the fellow's note. SETH SINGH MD * Johnna Gregory MD - 06/22/2013 1421 EST Subjective Carolyn Portillo is a 32 y.o. at 26w0d here for a routine visit. Additional Notes: Has been very nervous since brought into the hospital for BMZ due to concerning SVE. Sugars have been crazy ever since. Was seen yesterday on L&D for decreased FM, + urine ketones and glucose 300s. After eval on L&D, glucose values have improved. Movement:Present Contractions / Labor:None Vaginal Bleeding: None Leakage of Fluid: None Objective Vitals: BP: 110/68 mmHg Weight : 60.782 kg (134 lb) Heart Rate: 150 Movement: Present Dilation: 0 Effacement (%): 50 Station: -2 Assessment 32 y.o. at 26w0d with Type 1 DM, threatened PTL here for a routine visit. Plan Threatened labor, antepartum Passed mucus plug, felt pressure @ 25 weeks. SVE: closed /50%, developed MARLO FFN neg. S/p BMZ x 2 started on 06/18/13. Diabetes mellitus in Sugars have been poorly controlled since BMZ shots earlier this week. Seen on L&D yesterday for decreased FM and elevated glucoses and + ketones on urine dip. Fasting today 200 but mid 100s all day yesterday. Planning on talking to Endo today about another dose in PM for the next few days. Supervision of other high-risk (V23.89) Growth scan done on L&D this week, report not back. Ordered growth scans q 4 weeks for the remainder of SVE today unchanged from priorexam. Discussed the signs and symptoms of pre-/term labor and when to call the office. Follow-up in 1 week(s). D/W Dr Singh. Johnna Gregory MD documented in this encounter Miscellaneous Notes * Assessment & Plan Note - Johnna Gregory MD - 06/22/2013 0950 ESTAssociated Problem(s): Supervision of other high-risk (Resolved 11/04/2013) Growth scan done on L&D this week, report not back. Ordered growth scans q 4 weeks for the remainder of SVE today unchanged from priorexam. * Assessment & Plan Note - Johnna Gregory MD - 06/22/2013 0922 ESTAssociated Problem(s): Diabetes mellitus in (Resolved 11/04/2013) Sugars have been poorly controlled since BMZ shots earlier this week. Seen on L&D yesterday for decreased FM and elevated glucoses and + ketones on urine dip. Fasting today 200 but mid 100s all day yesterday. Planning on talking to Endo today about another dose in PM for the next few days. * Assessment & Plan Note - Johnna Gregory MD - 06/22/2013 0919 ESTAssociated Problem(s): Threatened labor, antepartum (Resolved 11/04/2013) Passed mucus plug, felt pressure @ 25 weeks. SVE: closed /50%, developed MARLO FFN neg. S/p BMZ x 2 started on 06/18/13. documented in this encounter Plan of Treatment Not on file documented as of this encounter Procedures Procedure Name Priority Date/Time Associated Diagnosis Comments SKILLED NURSING FOLLOW-UP Routine 07/20/2013 8:36 EST Pre-existing type 1 diabetes mellitus in in third trimester documented in this encounter Results * SKILLED NURSING FOLLOW-UP (07/20/2013 8:36 EST) Anatomical Region Laterality Modality Other 07/20/2013 8:36 EST 07/20/2013 9:00 EST Narrative 07/20/2013 9:00 EST Indication: Maternal disease: Diabetes, pregestational type 1. History: Age: 32 years. : 6 Para: 3. Previous pregnancies: Children born at term: 3. Abortions: 2. LMP known. Current : Pre- data: Weight 118 lbs. Height 5 ft 1 ins. BMI 22.1. Medical History: Diabetes Mellitus: Start 2007, Classification: Diabetic Type 1, Class B. Dating: LMP: 12/22/2012 EDC: 09/28/2013 GA by LMP: 30w0d Current Scan on: 07/20/2013 EDC: 10/02/2013 GA by current scan: 29w3d Best Overall Assessment: 02/15/2013 EDC: 09/28/2013 Assessed GA: 30w0d The calculation of the gestational age by current scan was based on BPD, HC, AC, FL and HUM. The Best Overall Assessment is based on the LMP. General Evaluation: heart activity: Present. heart rate: 138 bpm. Presentation: Isai breech, Spine right. movement: visible. Amniotic Fluid: Normal. MELIA ??12.7 cm. Maximal vertical pocket 5.3 cm. Placenta: Posterior left. Placenta Grade: Grade 1. Structure: normal. Anatomy Scan: Pitts gestation. Biometry: BPD 77.1 mm 68th% 30w6d (30w1d to 31w5d) HC 279.4 mm 31st% 30w4d (27w4d to 33w4d) AC 257.6 mm 42nd% 29w6d (29w1d to 30w5d) FL 52.7 mm <5th% 28w0d (26w0d to 30w1d) OFD 99.4 mm 45th% 29w6d HUM 47.9 mm 10th% 28w0d VENTRp 6.0 mm n/a HC/AC Ratio 1.085 ??53rd% FL/AC Ratio 0.205 ??n/a BPD/FL Ratio 1.463 ??79th% HC/FL Ratio 5.302 ??91st% BPD/OFD Ratio 0.776 ??32nd% EFW (lbs/oz) 3 lbs 1 ozs EFW (g) 1396 g ??15th% Anatomy: Head: head shape appears normal. Brain: Visualized and normal appearance: brain parenchyma, cerebral ventricles, midline falx, cavum septi pellucidi. Gastrointestinal Tract: Stomach appears normal. Kidneys / Adrenal Glands: Bilateral kidneys appear normal. Bladder: bladder appears normal in size and shape. Summary of Ultrasound Findings: Transabdominal US. U/S machine: Cloudant e8. U/S view: good. Wellbeing Assessment: Amniotic fluid: Normal. MELIA: 12.7 cm. MVP: 5.3 cm. Q1: 5.3 cm. Q2: 3.9 cm. Q3: 2.1 cm. Q4: 1.4 cm. Report Summary: Impression: [id number] Follow-up obstetrical ultrasound This is a pitts gestation. Composite biometry is consistent with prior dating. The femur length is above 5th% in Saran's textbook. Except where noted above, the anatomy was [...] 1396g , 3 lbs 1 ozs 15th%% Procedure Note 07/20/2013 Indication: Maternal disease: Diabetes, pregestational type 1. History: Age: 32 years. : 6 Para: 3. Previous pregnancies: Children born at term: 3. Abortions: 2. LMP known. Current : Pre- data: Weight 118 lbs. Height 5 ft 1 ins. BMI 22.1. Medical History: Diabetes Mellitus: Start 2007, Classification: Diabetic Type 1, Class B. Dating: LMP: 12/22/2012 EDC: 09/28/2013 GA by LMP: 30w0d Current Scan on: 07/20/2013 EDC: 10/02/2013 GA by current scan: 29w3d Best Overall Assessment: 02/15/2013 EDC: 09/28/2013 Assessed GA: 30w0d The calculation of the gestational age by current scan was based on BPD, HC, AC, FL and HUM. The Best Overall Assessment is based on the LMP. General Evaluation: heart activity: Present. heart rate: 138 bpm. Presentation: Isai breech, Spine right. movement: visible. Amniotic Fluid: Normal. MELIA 12.7 cm. Maximal vertical pocket 5.3 cm. Placenta: Posterior left. Placenta Grade: Grade 1. Structure: normal. Anatomy Scan: Pitts gestation. Biometry: BPD 77.1 mm 68th% 30w6d (30w1d to 31w5d) HC 279.4 mm 31st% 30w4d (27w4d to 33w4d) AC 257.6 mm 42nd% 29w6d (29w1d to 30w5d) FL 52.7 mm <5th% 28w0d (26w0d to 30w1d) OFD 99.4 mm 45th% 29w6d HUM 47.9 mm 10th% 28w0d VENTRp 6.0 mm n/a HC/AC Ratio 1.085 53rd% FL/AC Ratio 0.205 n/a BPD/FL Ratio 1.463 79th% HC/FL Ratio 5.302 91st% BPD/OFD Ratio 0.776 32nd% EFW (lbs/oz) 3 lbs 1 ozs EFW (g) 1396 g 15th% Anatomy: Head: head shape appears normal. Brain: Visualized and normal appearance: brain parenchyma, cerebral ventricles, midline falx, cavum septi pellucidi. Gastrointestinal Tract: Stomach appears normal. Kidneys / Adrenal Glands: Bilateral kidneys appear normal. Bladder: bladder appears normal in size and shape. Summary of Ultrasound Findings: Transabdominal US. U/S machine: Cloudant e8. U/S view: good. Wellbeing Assessment: Amniotic fluid: Normal. MELIA: 12.7 cm. MVP: 5.3 cm. Q1: 5.3 cm. Q2: 3.9 cm. Q3: 2.1 cm. Q4: 1.4 cm. Report Summary: Impression: [id number] Follow-up obstetrical ultrasound This is a pitts gestation. Composite biometry is consistent with prior dating. The femur length is above 5th% in Saran's textbook. Except where noted above, the anatomy was [...] 1396g , 3 lbs 1 ozs 15th%% us Johnna Gregory MD IMG US SKILLED NURSING ORDERABLES Final Re sult documented in this encounter Visit Diagnoses Diagnosis Pre-existing type 1 diabetes mellitus in in third trimester- Primary Diabetes mellitus, antepartum documented in this encounter Care Teams Certified Alcohol And Drug Counselor Relationship Specialty Start Date End Date Huseyin Zazueta MD [address] [place] [address] PCP - General 07/16/09 documented as of this encounter
--- OUTSIDE RECORDS SUMMARY | 2024-05-02 15:21 | XMS_ITS | Encounter Summary ---
Author Organization [facility] Address [address] [place] [address] Care Team Providers Care Homicide Squad Sergeant Name Role Phone Huseyin Zazueta MD Primary Care Provider [phone] Reason for Visit * Reason Comments Diabetes Encounter Details Date Type Department Care Team (Latest Contact Info) Description 07/02/2013 15:00 EST Office Visit [facility] Endocrinology - [address] [address] Unknown, Provider, Jessie Valencia Type I (juvenile type) diabetes mellitus without [...] as of this encounter Progress Notes * Mavis Miranda - 07/09/2013 1341 EST Pt left before CDE appt. documented in this encounter Plan of Treatment Not on file documented as of this encounter Visit Diagnoses Diagnosis Type I (juvenile type) diabetes mellitus without mention of complication, not stated as uncontrolled- Primary documented in this encounter Care Teams Homicide Squad Sergeant Relationship Specialty Start Date End Date Huseyin Zazueta MD [address] [place] [address] PCP - General 07/16/09 documented as of this encounter
--- OUTSIDE RECORDS SUMMARY | 2024-05-02 15:21 | XMS_ITS | Encounter Summary ---
Author Organization [facility] Address [address] [place] [address] Care Team Providers Care Senior Front End Web Developer Name Role Phone Huseyin Zazueta MD Primary Care Provider [phone] Encounter Details Date Type Department Care Team (Late st Contact Info) Description 05/25/2013 Phlebotomy Only [facility] [address] [place] [address] Feed Crusher Operator, Outpatient Type I (juvenile type) diabetes mellitus [...] Priority Date/Time Associated Diagnosis Comments FRUCTOSAMINE Routine 05/25/2013 10:16 EST Type I (juvenile type) diabetes mellitus without mention of complication, uncontrolled documented in this encounter Results * FRUCTOSAMINE (05/25/2013 10:16 EST) Fructosamine, S 241 200 - 285 mcmol/L [facility] Comment: Performed by: [facility] [employer] [place], [address], [place] [address], Skein Yarn Dyer: Sonali A. Cheryk, Ph.D. Blood specimen (specimen) 05/25/2013 10:16 EST 05/25/2013 10:26 EST us Carlin Manriquez MD CHEMISTRY & BLOOD GAS ORDERABL ES Final Result Performing Organization Address City/State/[facility] Co de Phone Number [facility] [address] [place] [address] documented in this encounter Visit Diagnoses Diagnosis Type I (juvenile type) diabetes mellitus without mention of complication, uncontrolled documented in this encounter Care Teams Senior Front End Web Developer Relationship Specialty Start Date End Date Huseyin Zazueta MD [address] [place] [address] PCP - General 07/16/09 documented as of this encounter
--- OUTSIDE RECORDS SUMMARY | 2024-05-02 15:21 | XMS_ITS | Encounter Summary ---
Author Organization [facility] Address [address] [place] [address] Care Team Providers Care Direct Sales Representative Name Role Phone Huseyin Zazueta MD Primary Care Provider [phone] Reason for Visit * Reason Comments Routine Visit Encounter Details Date Type Department Care Team (Late st Contact Info) Description 04/27/2013 11:00 EST Routine [facility] Obstetrics & Midwifery - [address] [id number] Johnna Gregory MD [address] [place] [id number] GA: 18w0d Social History Tobacco Use Types Packs/Day Years [...] Sign Reading Time Taken Comments Blood Pressure 106/60 04/27/2013 1055 EST Pulse - - Temperature - - Respiratory Rate - - Oxygen Saturation - - Inhaled Oxygen Concentration - - Weight 59.9 kg (132 lb) 04/27/2013 1055 EST Height - - Body Mass Index 24.94 04/27/2013 0922 EST documented in this encounter Progress Notes * Candace Salas MD - 05/04/2013 2337 EST MFM ATTG Pt discussed and I agree with plan as described above. Candace Salas MD * Johnna Gregory MD - 04/27/2013 1644 EST Subjective Carolyn Portillo is a 32 y.o. at 18w0d here for a routine visit. Additional Notes: Doing well, no current concerns. Movement:Present Contractions / Labor:None Vaginal Bleeding: None Leakage of Fluid: None Objective Vitals: BP: 106/60 mmHg Weight : 59.875 kg (132 lb) Heart Rate: 155 Movement: Present Assessment 32 y.o. at 18w0d with Type 1 DM (follows with endocrine) here for a routine visit. Plan Supervision of other high-risk Has detailed scheduled for 20 weeks. echo scheduled. Diabetes in Will be trying a pump. Hasn't had one in a long time. Saw Endocrine. Fingersticks somewhat brittle sounding. Hopes that pump helps. Discussed the signs and symptoms of pre-/term labor and when to call the office. Follow-up in 4 weeks D/W Dr Salas. Johnna Gregory MD documented in this encounter Miscellaneous Notes * Assessment & Plan Note - Johnna Gregory MD - 04/27/2013 1643 ESTAssociated Problem(s): Diabetes mellitus in (Resolved 11/04/2013) Will be trying a pump. Hasn't had one in a long time. Saw Endocrine. Fingersticks somewhat brittle sounding. Hopes that pump helps. * Assessment & Plan Note - Johnna Gregory MD - 04/27/2013 1642 ESTAssociated Problem(s): Supervision of other high-risk (Resolved 11/04/2013) Has detailed scheduled for 20 weeks. echo scheduled. documented in this encounter Plan of Treatment Not on file documented as of this encounter Visit Diagnoses Diagnosis Diabetes in - Primary Diabetes mellitus of mother, complicating , childbirth, or the puerperium, unspecified as to episode of care Supervision of other high-risk (V23.89) Supervision of other high-risk Type 1 diabetes mellitus ([facility]) Type I (juvenile type) diabetes mellitus without mention of complication, not stated as uncontrolled documented in this encounter Care Teams Direct Sales Representative Relationship Specialty Start Date End Date Huseyin Zazueta MD [address] [place] [address] PCP - General 07/16/09 documented as of this encounter
--- OUTSIDE RECORDS SUMMARY | 2024-05-02 15:21 | XMS_ITS | Encounter Summary ---
Author Organization [facility] Address [address] [place] [address] Care Team Providers Care Hide Buffer Name Role Phone Huseyin Zazueta MD Primary Care Provider [phone] Reason for Visit * Reason Comments Labs Only Encounter Details Date Type Department Care Team (Latest Contact Info) Description 03/16/2013 14:15 EDT Procedure visit [facility] Endocrinology - [address] [address] Carlin Manriquez MD [address] [place] [address], [address] [phone] Phlebotomy, [facility] Type I (juvenile type) diabetes mellitus without [...] encounter Progress Notes * Nohemi Watkins - 03/16/2013 1438 EDT Blood sample drawn from vein for testing at the order of Dr. Manriquez I was directly supervised by and he/she was in the suite and immediately available for the entire time the service was provided. documented in this encounter Plan of Treatment Not on file documented as of this encounter Procedures Procedure Name Priority Date/Time Associated Diagnosis Comments FRUCTOSAMINE Routine 03/16/2013 14:28 EDT Type I (juvenile type) diabetes mellitus without mention of complication, uncontrolled HEMOGLOBIN A1C Routine 03/16/2013 14:28 EDT Type I (juvenile type) diabetes mellitus without mention of complication, uncontrolled documented in this encounter Results * FRUCTOSAMINE (03/16/2013 14:28 EDT) Fructosamine, S 258 200 - 285 mcmol/L [facility] Comment: Performed by: [employer] [facility], [address], [place] [address], Water Treatment Plant Mechanic: Sonali Navarro, Ph.D. Blood specimen (specimen) 03/16/2013 14:28 EDT 03/16/2013 18:54 EDT Carlin Manriquez MD CHEMISTRY & BLOOD GAS ORDERABL ES Final Result Performing Organization Address City/State/[facility] Co de Phone Number [facility] [address] [place] [address] * HEMOGLOBIN A1C (03/16/2013 14:28 EDT) Hemoglobin A1C 7.5 % [facility] Comment: Reference Range: <5.7% Normal 5.7-6.4% Increased risk for diabetes =>6.5% Diagnostic for diabetes (if confirmed) The A1c goal for non adults in general is <7%. The A1c goal for selected patients may be significantly lower than 7% if this can be achieved without significant hypoglycemia or other adverse effects of treatment. Est Avg Glucose 169 mg/dl [facility] Comment: eAG represents the A1c result expressed as average glucose in mg/dl. Blood specimen (specimen) 03/16/2013 14:28 EDT 03/16/2013 18:54 EDT us Carlin Manriquez MD CHEMISTRY & BLOOD GAS ORDERABL ES Final Result [facility] [address] [place] [address] documented in this encounter Visit Diagnoses Diagnosis Type I (juvenile type) diabetes mellitus without mention of complication, uncontrolled- Primary documented in this encounter Care Teams Hide Buffer Relationship Specialty Start Date End Date Huseyin Zazueta MD [address] [place] [address] PCP - General 07/16/09 documented as of this encounter
--- OUTSIDE RECORDS SUMMARY | 2024-05-02 15:21 | XMS_ITS | Encounter Summary ---
Author Organization [facility] Address [address] [place] [address] Care Team Providers Care Lpn Rn Hospice Name Role Phone Huseyin Zazueta MD Primary Care Provider [phone] Reason for Visit * Reason Comments Routine Visit tender lower abdo men. 3hrs this morning it was constant pain @6-7 Encounter Details Date Type Department Care Team (Late st Contact Info) Description 04/03/2013 13:30 EDT Routine [facility] Obstetrics & Midwifery - [facility] [address] [place], [place] [phone] Yodit Henderson MD [address] [place] [address], [address] [place] [address] GA: 14w4d Social History Tobacco Use Types Packs/Day Years [...] Sign Reading Time Taken Comments Blood Pressure 102/64 04/03/2013 1341 EDT Pulse - - Temperature - - Respiratory Rate - - Oxygen Saturation - - Inhaled Oxygen Concentration - - Weight 57.5 kg (126 lb 12.8 oz) 04/03/2013 1341 EDT Height - - Body Mass Index 23.57 02/15/2013 1456 EDT documented in this encounter Progress Notes * Yodit Henderson MD - 04/03/2013 1500 EDT MFMS Attending I discussed the pt with Dr. Gregory at the time of the visit. I agree with impression and plan as above. Yodit Henderson MD * Johnna Gregory MD - 04/03/2013 1357 EDT Subjective Carolyn Portillo is a 32 y.o. at 14w4d here for a problem visit. Additional Notes: Complains of achy pelvis, no discrete dysuria. Movement:None Contractions / Labor:None Vaginal Bleeding: None Leakage of Fluid: None Objective Vitals: BP: 102/64 mmHg Weight : 57.516 kg (126 lb 12.8 oz) Movement: N/A Dilation: 0 Effacement (%): 0 Station: -3 Assessment 32 y.o. at 14w4d with Type 1 DM and complaints of pelvic pressure here for a problem visit. Plan Supervision of other high-risk Presents today with pelvic pressure and discomfort. Achy and sore. UA from [facility] yesterday negative, culture pending. Bimanual: closed, long, multiparous. Uterus tender with manipulation, likely ligament. Freely mobile and anteverted. Discussed chorioamnionitis precautions. Discussed the signs and symptoms of pre-/term labor and when to call the office. Follow-up in 3 weeks (regularly scheduled appt). Johnna Gregory MD documented in this encounter Miscellaneous Notes * Assessment & Plan Note - Johnna Gregory MD - 04/03/2013 1357 EDTAssociated Problem(s): Supervision of other high-risk (Resolved 11/04/2013) Presents today with pelvic pressure and discomfort. Achy and sore. UA from [facility] yesterday negative, culture pending. Bimanual: closed, long, multiparous. Uterus tender with manipulation, likely ligament. Freely mobile and anteverted. Discussed chorioamnionitis precautions. documented in this encounter Plan of Treatment Not on file documented as of this encounter Visit Diagnoses Diagnosis Abdominal pain, unspecified site- Primary Supervision of other high-risk (V23.89) Supervision of other high-risk documented in this encounter Discontinued Medications Medication Sig Discontinue Reason Start Date End Da te norelgestromin-ethinyl estradiol (ORTHO EVRA) 150-20 mcg/[address] 1 Patch onto the skin every 7 days. Apply new patch on same day of week for 3 weeks. No patch week 4. 04/03/2013 documented as of this encounter Care Teams Lpn Rn Hospice Relationship Specialty Start Date End Date Huseyin Zazueta MD [address] [place] [address] PCP - General 07/16/09 documented as of this encounter
--- OUTSIDE RECORDS SUMMARY | 2024-05-02 15:21 | XMS_ITS | Encounter Summary ---
Author Organization [facility] Address [address] [place] [address] Care Team Providers Care Cable Engineer Name Role Phone Huseyin Zazueta MD Primary Care Provider [phone] Reason for Visit * Reason Onset Date Comments Diabetes 06/20/2013 Encounter Details Date Type Department Care Team (Late st Contact Info) Description 06/20/2013 Telephone [facility] Endocrinology - [address] [phone] Lacie Nichole RN CDE Diabetes Social History [...] Telephone Encounter - Lacie Nichole RN - 06/20/2013 1047 EST Pt called at 10:47, bg- [id number], ketones neg. Feels ok except tired. [place] 1/2 hour away from hospital. itold pt that ED is notified to expect her. Pt verbalized understanding. * Telephone Encounter - Lacie Nichole RN - 06/20/2013 1012 EST Pt called 10:11, bg= 316, neg ketones, just took 5 units log, still enroute to ED, expects to arrive roque 1.5 hrs * Telephone Encounter - Lacie Nichole RN - 06/20/[address] Campos called me at 09:30 to contact pt to see if blood sugars and ketones improving. i called ptand she in en route to hospital -states no improvement despite following Dr Campos's directions. Dr Campos notified. Dr Manriquez notified and is alerting ED to pt's arrival. Pt was just outside of [facility] now, states feeling ok to drive. When stops to use bathroom next will call with update. documented in this encounter Plan of Treatment Not on file documented as of this encounter Visit Diagnoses Not on filedocumented in this encounter Care Teams Cable Engineer Relationship Specialty Start Date End Date Huseyin Zazueta MD [address] [place] [id number] PCP - General 07/16/09 documented as of this encounter
--- OUTSIDE RECORDS SUMMARY | 2024-05-02 15:21 | XMS_ITS | Encounter Summary ---
Author Organization [facility] Address [address] [place] [address] Care Team Providers Care Pig Machine Operator Name Role Phone Huseyin Zazueta MD Primary Care Provider [phone] Reason for Visit * Reason Comments Diabetes Encounter Details Date Type Department Care Team (Latest Contact Info) Description 04/27/2013 9:30 EST Nurse Only [facility] Endocrinology - [address] [phone] Unknown, Provider, Lacie Otto, RN CDE Type [...] Reading Time Taken Comments Blood Pressure 110/68 04/27/2013 0922 EST Pulse 80 04/27/2013 0922 EST Temperature - - Respiratory Rate - - Oxygen Saturation - - Inhaled Oxygen Concentration - - Weight 60 kg (132 lb 4.8 oz) 04/27/2013 0922 EST Height 154.9 cm (5' 1) 04/27/2013 0922 EST Body Mass Index 25 04/27/2013 0922 EST documented in this encounter Discharge Diagnoses Diagnosis 250.03 DIABETES UNCOMPL FOREST-UNCONTRLLED[ICD-9-CM] documented in this encounter Patient Instructions * Patient Instructions* Lacie Nichole RN - 04/27/2013 9:42 EST Increase carb ratio to 1:9. In 2 days if not seeing a significant improvement will go to 1:8 Continue current dose of lantus 21 units every am We will submit MM pump order and ask pump company to expedite for Call clinic on Tuesday with bg update documented in this encounter Progress Notes * Lacie Nichole RN - 04/27/2013 1003 EST BP 110/68 Pulse 80 Ht 154.9 cm (61) Wt 60.011 kg (132 lb 4.8 oz) BMI 25.01 kg/m2 LMP 12/22/2012 Current Outpatient Prescriptions Medication Status Sig Dispense Refill ??? blood glucose (ONE TOUCH ULTRA TEST) test strips Active 12 Strips by [facility] (non-drug; combo route) route daily. ICD-9: 648.03 400 Each 11 ??? glucagon (GLUCAGON EMERGENCY) 1 mg emergency injection kit Active Use as directed. 4 Kit 6 ??? insulin aspart (NOVOLOG FLEXPEN) 100 unit/mL injectable pen Active Inject into skin with meals up to 50 units daily. Titrating up during . 45 mL 3 ??? insulin glargine (LANTUS SOLOSTAR) 100 unit/mL (3 mL) injection pen Active Inject into 30 unitsdaily. Titrate up during . Up to 50 units daily. 45 mL 3 ??? insulin pen needles 31G x 5/16 (BD INSULIN PEN NEEDLE UF SHORT) Active Use 5 pen needles as directed daily. 500 Each 3 ??? ketone urine reagent strip (KETOSTIX) Active Use 1 Strip as directed as needed. if blood glucose is greater than 250 (for 2 consecutive readings), if ill, and/or if vomiting. 50 Each 5 ??? lancets (ONE TOUCH DELICA) 33 gauge Misc Active Use 15 lancet as directed daily. 1300 Each 3 ??? VIT/IRON FUMARATE/FA ( ORAL) Active Take by mouth. ??? simvastatin (ZOCOR) 20 mg tablet Active Take 20 mg by mouth daily. No current facility-administered medications for this visit. Pt is here to discuss insulin pump therapy. Currently at 18 weeks gestation. Pt having some lows but also post prandial highs. Pt did wear older dexcom but reported skin irritation. Today pt inquires about MM new pump. She is interested in pump plus sensor. Currently this pump is off label use for but Dr Manriquez is prescribing it to be used with the threshold suspend feature turned off during . Pt is competent in sbgm, ketone testing, documentation, sick day rules. Assessment: No apparent impediments to insulin pump therapy noted. Pt would benefit from more flexible and sensitive insulin dosing for and afterwards. At this point pt appears to need increased prandial dosing. Plan: Increase carb ratio to 1:9. In 2 days if not seeing a significant improvement will go to 1:8 Continue current dose of lantus 21 units every am We will submit MM pump order and ask pump company to expedite for . I have submitted aob plus written script from Dr Manriquez and contacted pump company. Call clinic on Tuesday with bg update No barriers to education noted. Pt verbalized understanding. Time spent with patient: [address] Manriquez is supervising physician. Viz=[id number] documented in this encounter Plan of Treatment Not on file documented as of this encounter Visit Diagnoses Diagnosis Type I (juvenile type) diabetes mellitus without mention of complication, uncontrolled- Primary documented in this encounter Discontinued Medications Medication Sig Discontinue Reason Start Date End Da te insulin aspart (NOVOLOG) 100 unit/mL CartridgeIndications:Typ e 1 diabetes mellitus ([facility]) Uses 8:1 CHO ratio Usually 5-7 units/meals 12/05/2012 04/27/2013 documented as of this encounter Care Teams Pig Machine Operator Relationship Specialty Start Date End Date Huseyin Zazueta MD [address] [place] [address] PCP - General 07/16/09 documented as of this encounter
--- OUTSIDE RECORDS SUMMARY | 2024-05-02 15:21 | XMS_ITS | Encounter Summary ---
Author Organization [facility] Address [address] [place] [address] Care Team Providers Care Assembler Steam And [employer] Turbine Name Role Phone Huseyin Zazueta MD Primary Care Provider [phone] Reason for Visit * Reason Comments Decreased Movement Encounter Details Date Type Department Care Team (Late st Contact Info) Description 06/20/2013 11:25 EST - 06/20/2013 15:55 EST Hospital Encounter [facility] [address] [place], [place] [id number] Neil Linares MD [address] [facility] [address] [place] [address] Cielo Rollins MD Supervision of other high-risk (V23.89) (Primary Dx) Discharge Disposition: Home or Self Care Social [...] Sign Reading Time Taken Comments Blood Pressure 103/60 06/20/2013 1458 EST Pulse 93 06/20/2013 1458 EST Temperature 36.5 ??C (97.7 ??F) 06/20/2013 1458 EST Respiratory Rate 18 06/20/2013 1458 EST Oxygen Saturation - - Inhaled Oxygen Concentration - - Weight - - Height - - Body Mass Index - - documented in this encounter Discharge Instructions * Discharge Instr - Other Orders* Sonya Danielle MD - 06/20/2013 15:43 EST Discharge Instructions L&D Call your provider [...] documented in this encounter Progress Notes * Cielo Rollins MD - 06/20/2013 1402 EST L&D Triage Note C/C: Elevated blood sugars in the context of T1DM and recent BMZ administration Carolyn Portillo is a 32 y.o. @ 25w5d by a 7+6wk U/S HPI: Patient reports elevated blood sugars overnight. Blood sugars have been in the 300's all day despite attempted correction with aspart. Patient called endocrine this AM and was advised to give herself an additional 6u of aspart. An hour later patient was still high in the 270's and was advised an additional 6u of aspart. Patient then gave herself an additional 5u two hours prior to admission.Patient also took her AM lantus (25u). Patient denies LOF/VB/Cx. +FM. Reports that she had ketones in her urine this AM but drank 'gallons' of water which seemed to resolve it. This has been complicated by T1DM, patient sees endo here in [place]. Patient was recently discharged after getting admitted for BMZ administration due to concerns for PTL. O: BP 97/51 Pulse 88 Temp(Src) 36.6 ??C (97.9 ??F) (Tympanic) Resp 18 LMP 12/22/2012 FHT: 140 baseline, mod variability, pos accels, neg decels; Category I tracing [place]: flat. SSE: Deferred. SVE: Deferred. Bedside U/S: Deferred. POCT glucose 221 A/P: Carolyn Portillo is a 32 y.o. @ 25w5d presenting with elevated blood sugars in the context of T1DM and recent administration of BMZ. Category I tracing. *T1DM: Plan to recheck blood sugar in 1hr per endo, should it keep decreasing plan to recheck bloodsugars q2 hours and treat accordingly. *FWB: Cat I FHT. Discussed with Sonya Dobbs MD 06/20/2013 14:02 Addendum: Blood sugar one hour later 170. Will recheck in 2 hours. Addendum: Blood sugar 2 hours later 111. Ok for discharge per endo and Dr. Rollins. Plan for endo visit in one week and to keep her routine visits. Sonya Danielle MD MFMS / OB Attending : I saw and evaluated the patient and discussed findings with the residents . I agree with the above assessment and plan of care. Reviewed labs and discussed with endo prior to discharge. MD CIELO ELY MD , 06/22/2013, 16:12 * Mare Ocampo RN - 06/20/2013 [address]Dr[address] Danielle aware.Repeat FS at 1500. 1320-Dr. Rollins in room.Pt said she was going to take a nap. * Mary Dennis RN - 06/20/2013 1148 EST Pt arrived w/ c/o elevated FS since left hospital yesterday. Had BetaMethasone 2nd dose @ 1500 yesterday. States had been spilling ketones this am And was in consultation w/ Endocrine. 352 FS on awakening this am and mid to upper 200's this am and took Insulin per Endocrine, Drank alot po fluids . States last movement felt by pt was @ 0100. Eufemia Danielle Aware of pts arrival And in to see pt @ 1145 . FS 221 on admission, results told to Eufemia Danielle. Drinking water. 1200 UA obtained and sent to lab. Pt states has felt movement since on monitors 1220 IV started, Labs drawn. Sipping on H2 O. Offers no complaints 1235 Report off 1400 Care re assumed. Pt Resting comfortably. Offers no complaints, Denies any uterine cramping, ctxs, back ache or discomfort. Feeling + FM 1500 Sonya Danielle in to see pt. FS 111. Pt would like to go home. Feeling more movement like his( the baby) normal amt of movement. + accels w/ FM 1545 Sonya Danielle in to talk w/ pt re: discharge and follow up instructions. 1555 IV dc'd , Writteninstructions given to pt. All questions answered. Home undelivered. documented in this encounter Procedure Notes * Cielo Rollins MD - 06/20/2013 1239 ESTProcedure(s): NONSTRESS TEST NST Report 06/19/ Baseline Heart Rate: 130 Accelerations: present Movement: present Decelerations: absent Contractions: absent Interpretation: reactive Cielo Rollins MD 06/20/2013 12:40 documented in this encounter Plan of Treatment Not on file documented as of this encounter Procedures Procedure Name Priority Date/Time Associated Diagnosis Comments INPATIENT ADD-ON STAT 06/20/2013 15:0 5 EST GLUCOSE, GLUCOMETER Routine 06/20/2013 1 4:58 EST GLUCOSE, GLUCOMETER Routine 06/20/2013 1 2:58 EST BETA HYDROXYBUTYRATE Routine 06/20/2013 12:10 EST BUN STAT 06/20/2013 12:10 EST PHOSPHORUS Routine 06/20/2013 12:10 EST MAGNESIUM Routine 06/20/2013 12:10 EST CREATININE STAT 06/20/2013 12:10 EST CALCIUM Routine 06/20/2013 12:10 EST ELECTROLYTES Routine 06/20/2013 12:10 EST URINALYSIS WITH MICROSCOPIC IF POSITIVE STAT 06/20/2013 11:57 EST UA REFLEX Routine 06/20/2013 11:57 EST URINE CULTURE IF POSITIVE STAT 06/20/2013 11:57 EST GLUCOSE, GLUCOMETER Routine 06/20/2013 1 1:48 EST documented in this encounter Results * INPATIENT ADD-ON (06/20/2013 15:05 EST) Tests to be added SERUM KETONES [facility] Number for problems [id number] [facility] Accession number [id number] ORDER BHOB [facility] 06/20/2013 15:0 5 EST 06/20/2013 15:08 EST Sonya Danielle MD HEMATOLOGY & PF4 ORDERABLES Thu l Result Performing Organization Address [facility] de Phone Number [facility] [address] [place] [address] * (ABNORMAL) GLUCOSE, GLUCOMETER (06/20/2013 14:58 EST) Glucose, Fingerstick 111(H) 70 - 100 mg/dl [facility] [place] ID [id number] [facility] Comment:Test Performed by [facility] [employer] 06/20/2013 14:5 8 EST 06/20/2013 15:03 EST Cielo Rollins MD CHEMISTRY & BLOOD GAS ORDERA BLES Final Result Performing Organization Address [facility] Co de Phone Number [facility] [address] [place] [address] * (ABNORMAL) GLUCOSE, GLUCOMETER (06/20/2013 12:58 EST) Glucose, Fingerstick 170(H) 70 - 100 mg/dl [facility] [place] [id number] [facility] Comment:Test Performed by [employer] 06/20/2013 12:5 8 EST 06/20/2013 13:01 EST Cielo Rollins MD CHEMISTRY & BLOOD GAS ORDERA BLES Final Result Performing Organization Address [facility] Co de Phone Number [facility] [address] [place] [address] * (ABNORMAL) BETA HYDROXYBUTYRATE (06/20/2013 12:10 EST) Beta Hydroxybutyrate 0.4(H) <0.4 mmol/L [facility] Comment: The upper reference limit for BHOB is 0.4 mmol/L, which would not be expected to be exceeded in response to an overnight fast (up to 12 hours). Patients with well documented DKA typically have BHOB concentrations of > 2 mmol/L. BHOB = B-Hydroxybutyrate 06/20/2013 12:1 0 EST 06/20/2013 12:31 EST Sonya Danielle MD CHEMISTRY & BLOOD GAS ORDERABLES Final Result Performing Organization Address [facility] de Phone Number [facility] [address] [place] [address] * CALCIUM (06/20/2013 12:10 EST) Calcium 9.0 8.5 - 10.5 mg/dl [facility] Calculated Calcium 10.0 8.5 - 10.5 mg/dl [facility] Blood specimen (specimen) 06/20/2013 12:10 EST 06/20/2013 12:31 EST Sonya Danielle MD CHEMISTRY & BLOOD GAS ORDERABLES Final Result Performing Organization Address [facility] de Phone Number [facility] [address] [place] [address] * PHOSPHORUS (06/20/2013 12:10 EST) Phosphorus 2.7 2.5 - 4.5 mg/dl [facility] Blood specimen (specimen) 06/20/2013 12:10 EST 06/20/2013 12:31 EST Sonya Danielle MD CHEMISTRY & BLOOD GAS ORDERABLES Final Result Performing Organization Address [facility] de Phone Number [facility] [address] [place] [address] * (ABNORMAL) MAGNESIUM (06/20/2013 12:10 EST) Magnesium 1.6(L) 1.7 - 2.8 mg/dl [facility] Blood specimen (specimen) 06/20/2013 12:10 EST 06/20/2013 12:31 EST Sonya Danielle MD CHEMISTRY & BLOOD GAS ORDERABLES Final Result Performing Organization Address [facility] de Phone Number [facility] [address] [place] [address] * (ABNORMAL) ELECTROLYTES (06/20/2013 12:10 EST) Sodium 134(L) 136 - 145 mEq/L [facility] Potassium 3.6 3.5 - 5.0 mEq/L [facility] Chloride 104 96 - 110 mEq/L [facility] CO2 20(L) 24 - 32 mEq/L [facility] Blood specimen (specimen) 06/20/2013 12:10 EST 06/20/2013 12:31 EST Sonya Danielle MD CHEMISTRY & BLOOD GAS ORDERABLES Final Result Performing Organization Address [facility] de Phone Number [facility] [address] [place] [address] * (ABNORMAL) CREATININE (06/20/2013 12:10 EST) Creatinine 0.38(L) 0.52 - 1.04 mg/dl [facility] GFR, Calculated >60 >60 ml/min/1.7 3m2 [facility] Blood specimen (specimen) 06/20/2013 12:10 EST 06/20/2013 12:31 EST Sonya Danielle MD CHEMISTRY & BLOOD GAS ORDERABLES Final Result Performing Organization Address [facility] de Phone Number [facility] [address] [place] [address] * (ABNORMAL) BUN (06/20/2013 12:10 EST) BUN 4(L) 10 - 26 mg/dl [facility] Blood specimen (specimen) 06/20/2013 12:10 EST 06/20/2013 12:31 EST Sonya Danielle MD CHEMISTRY & BLOOD GAS ORDERABLES Final Result Performing Organization Address [facility]/ZIP Co de Phone Number [facility] [address] [place] [address] * UA REFLEX (06/20/2013 11:57 EST) UA Billing Microscopic not indicated. [facility] 06/20/2013 11:5 7 EST 06/20/2013 12:10 EST Sonya Danielle MD URINALYSIS ORDERABLES Final Resu lt Performing Organization Address [facility] Co de Phone Number [facility] [address] [place] [address] * URINE CULTURE IF UA POSITIVE - NON POCT URINALYSIS ONLY (06/20/2013 11:57 EST) Culture if Indicated Culture not indicated by urinalysis results. [facility] Urine specimen (specimen) URINE / Unknown 06/20/2013 11:57 EST 06/20/2013 12:10 EST Sonya Danielle MD MICROBIOLOGY - GENERAL ORDERABLE S Final Result Performing Organization Address [facility] de Phone Number [facility] [address] [place] [address] * (ABNORMAL) URINALYSIS (06/20/2013 11:57 EST) Color, UA Yellow [facility] Clarity, UA Clear [facility] Glucose, UA Trace(A) Neg [facility] Bilirubin, UA Neg Neg [facility] Ketones, UA 1+(A) Neg [facility] Specific [place], Urine 1.010 1.001 - 1.035 [facility] Blood, UA Neg Neg [facility] pH, UA 6.0 4.6 - 8.0 [facility] Protein, UA Neg Neg [facility] Urobilinogen, UA 0.2 0.2 - 1.0 E.U./dl [facility] Nitrite, UA Neg Neg [facility] Leuk Esterase Neg Neg [facility] Urine specimen (specimen) URINE / Unknown 06/20/2013 11:57 EST 06/20/2013 12:10 EST us Sonya Danielle MD URINALYSIS ORDERABLES Final Resu lt Performing Organization Address City/[facility]/ZIP Co de Phone Number [facility] [address] [place] [address] * (ABNORMAL) GLUCOSE, GLUCOMETER (06/20/2013 11:48 EST) Glucose, Fingerstick 221(H) 70 - 100 mg/dl [facility] [place] ID [id number] [facility] Comment:Test Performed by [facility] 06/20/2013 11:4 8 EST 06/20/2013 12:05 EST us Cielo Rollins MD CHEMISTRY & BLOOD GAS ORDERA BLES Final Result Performing Organization Address [facility] de Phone Number [facility] [address] [place] [address] documented in this encounter Visit Diagnoses Diagnosis Supervision of other high-risk (V23.89)- Primary Supervision of other high-risk documented in this encounter Administered Medications Inactive Administered Medications - up to 3 most recent administrations Medication Order MAR Action Action Date Dose Rate Site sodium chloride 0.9 % (NS) infusion at 100 mL/hr, intravenous, CONTINUOUS, Starting on Tue06/20/13 at 1230, Until Tue06/20/13 at 1804, Routine New Bag 06/20/2013 12:20 EST 100 mL/h r documented in this encounter Active and Recently Administered Medications Times are shown in EST. Continuous Medication Order 06/18/2013 06/19/2013 06/20/2013 sodium chloride 0.9 % (NS) infusion (CANCELED) at 100 mL/hr, intravenous, CONTINUOUS, Starting on Tue06/20/13 at 1230, Until Tue06/20/13 at 1804, Routine 1220 (New Bag - Prov ider: Mary Dennis RN) documented in this encounter Orders Medications Ordered That Kelvin ht Not Have Been Administered Count Last Ordered Date First Ordered Date lactated ringers (LR) infusion 1 06/20/2013 multivitamin vit-ir on fumarate-FA (STUARTNATAL) 27-1 mg tablet 1 Tab 1 06/20/2013 simvastatin (ZOCOR) tablet 20 mg 1 06/20/19 14 Admission Count Last Ordered Date First Orde red Date STATUS: NON-MEDICARE OB INPA TIENT ADMISSION 1 06/20/2013 Transfer Count Last Ordered Date First Orde red Date NOTIFY PPS OF DISCHARGE COMPLETE 1 06/20/19 14 Discharge Count Last Ordered Date First Orde red Date DISCHARGE PATIENT 1 06/20/2013 documented in this encounter Care Teams Assembler [employer] Relationship Specialty Start Date End Date Huseyin Zazueta MD [address] [place] [address] PCP - General 07/16/09 documented as of this encounter
--- OUTSIDE RECORDS SUMMARY | 2024-05-02 15:21 | XMS_ITS | Encounter Summary ---
Author Organization [facility] Address [address] [place] [address] Care Team Providers Care Chute Puller Name Role Phone Huseyin Zazueta MD Primary Care Provider [phone] Reason for Referral * RETAIL ACCOUNT EXECUTIVE (Routine/Next Available) - Closed Specialty Diagnoses / Procedures Referred By Neva zacarias Referred To Contact Diagnoses Spotting complicating in second trimester Procedures LONGTERM LIMITED EXAM Neil Linares MD Phone: tel: fax: Referral ID Status Reason Start Date Expiration Date Visits Re quested Visits Authorized [id number] Closed 04/06/2013 1 1 Reason for Visit * Reason Comments Routine Visit spotting and slig ht cramping Encounter Details Date Type Department Care Team (Late st Contact Info) Description 04/06/2013 13:45 EDT Routine [facility] Obstetrics & Midwifery - [address] [address] Neil Linares MD [address] [place] [address], [address] [place] [address] GA: 15w0d Social History Tobacco Use Types Packs/Day Years [...] Sign Reading Time Taken Comments Blood Pressure 90/60 04/06/2013 1404 EDT Pulse - - Temperature - - Respiratory Rate - - Oxygen Saturation - - Inhaled Oxygen Concentration - - Weight 57.6 kg (127 lb) 04/06/2013 1404 EDT Height - - Body Mass Index 23.61 02/15/2013 1456 EDT documented in this encounter Progress Notes * Neil Linares MD - 04/06/2013 1442 EDT Diabetes in She stated her sugars are the best they have been since diagnosis and that Endocrinology is managing them. Supervision of other high-risk MFM attending S: She is complaining of spotting dark brown blood. She says her uterus is generally uncomfortable,but denies urinary pain or frequency. She notes taking a fall a week or so ago. O: See vitals On speculum exam, her cervix did not appear friable, and there was dark brown stained mucous at theos. A: IUP at 15w0d with diabetes Spotting brown discharge. P: I discussed that dark brown spotting represents old blood, generally from placental bleeding. Itcould be evidence of previa or an abruption but was not a recent bleed. Bleeding increases her riskof IUGR, but she will already get frequent growth scans, so there is no change in management. I will get a limited scan today to assess placenta for previa. Neil Linares MD 04/06/2013 14:42 documented in this encounter Miscellaneous Notes * Assessment & Plan Note - Neil Linares MD - 04/06/2013 2653 EDTAssociated Problem(s): Supervision of other high-risk (Resolved 11/04/2013) MFM attending S: She is complaining of spotting dark brown blood. She says her uterus is generally uncomfortable,but denies urinary pain or frequency. She notes taking a fall a week or so ago. O: See vitals On speculum exam, her cervix did not appear friable, and there was dark brown stained mucous at theos. A: IUP at 15w0d with diabetes Spotting brown discharge. P: I discussed that dark brown spotting represents old blood, generally from placental bleeding. Itcould be evidence of previa or an abruption but was not a recent bleed. Bleeding increases her riskof IUGR, but she will already get frequent growth scans, so there is no change in management. I will get a limited scan today to assess placenta for previa. * Assessment & Plan Note - Neil Linares MD - 04/06/2013 1436 EDTAssociated Problem(s): Diabetes mellitus in (Resolved 11/04/2013) She stated her sugars are the best they have been since diagnosis and that Endocrinology is managing them. documented in this encounter Plan of Treatment Not on file documented as of this encounter Procedures Procedure Name Priority Date/Time Associated Diagnosis Comments LONGTERM LIMITED EXAM Routine 04/06/2013 15:0 9 EDT Spotting complicating in second trimester documented in this encounter Results * LONGTERM LIMITED EXAM (04/06/2013 15:09 EDT) Anatomical Region Laterality Modality Other 04/06/2013 15:0 9 EDT 04/06/2013 16:24 EDT Narrative 04/06/2013 16:24 EDT Indication: Vaginal bleeding. History: Age: 32 years. LMP known. Dating: LMP: 12/22/2012 EDC: 09/28/2013 GA by LMP: 15w0d Best Overall Assessment: 02/15/2013 EDC: 09/28/2013 Assessed GA: 15w0d The Best Overall Assessment is based on the LMP. General Evaluation: heart activity: Present. heart rate: 142 bpm. Presentation: cephalic. movement: visible. Amniotic Fluid: Normal. Placenta: Posterior. Placenta Grade: Grade 0. Anatomy Scan: Pitts gestation. Summary of Ultrasound Findings: Transabdominal US. U/S machine: Max Rumpus e8. U/S view: good. Report Summary: Impression: [id number] Limited obstetrical ultrasound This is a pitts gestation. The anatomy was not reviewed in detail. Cephalic presentation. movement was noted. The amniotic fluid volume appears normal. No subchorionic hematoma noted. Recommendations: Follow-up as clinically indicated. Procedure Note 04/06/2013 Indication: Vaginal bleeding. History: Age: 32 years. LMP known. Dating: LMP: 12/22/2012 EDC: 09/28/2013 GA by LMP: 15w0d Best Overall Assessment: 02/15/2013 EDC: 09/28/2013 Assessed GA: 15w0d The Best Overall Assessment is based on the LMP. General Evaluation: heart activity: Present. heart rate: 142 bpm. Presentation: cephalic. movement: visible. Amniotic Fluid: Normal. Placenta: Posterior. Placenta Grade: Grade 0. Anatomy Scan: Pitts gestation. Summary of Ultrasound Findings: Transabdominal US. U/S machine: SHANNA Rodriguez e8. U/S view: good. Report Summary: Impression: [id number] Limited obstetrical ultrasound This is a pitts gestation. The anatomy was not reviewed in detail. Cephalic presentation. movement was noted. The amniotic fluid volume appears normal. No subchorionic hematoma noted. Recommendations: Follow-up as clinically indicated. Neil Linares MD IMG LONGTERM ORDERABLES nal Result documented in this encounter Visit Diagnoses Diagnosis Spotting complicating in second trimester- Primary Spotting complicating , antepartum condition or complication Diabetes in Diabetes mellitus of mother, complicating , childbirth, or the puerperium, unspecified as to episode of care documented in this encounter Care Teams Chute Puller Relationship Specialty Start Date End Date Huseyin Zazueta MD [address] [place] [id number] PCP - General 07/16/09 documented as of this encounter
--- OUTSIDE RECORDS SUMMARY | 2024-05-02 15:21 | XMS_ITS | Encounter Summary ---
Author Organization [facility] Address [address] [place] [address] Care Team Providers Care Welding Pantograph Machine Operator Name Role Phone Huseiyn Zazueta MD Primary Care Provider [phone] Reason for Visit * Reason Comments Routine Visit Encounter Details Date Type Department Care Team (Late st Contact Info) Description 05/25/2013 9:40 EST Routine [facility] Obstetrics & Midwifery - [address] [phone] Johnna Gregory MD [address] [place] [id number] GA: 22w0d Social History Tobacco Use Types Packs/Day Years [...] Sign Reading Time Taken Comments Blood Pressure 112/62 05/25/2013 0941 EST Pulse - - Temperature - - Respiratory Rate - - Oxygen Saturation - - Inhaled Oxygen Concentration - - Weight 60.3 kg (133 lb) 05/25/2013 0941 EST Height - - Body Mass Index 25.13 04/27/2013 0922 EST documented in this encounter Ordered Prescriptions Prescription Sig Dispense Quantity Refills Last Filled Start Date End Date lactulose (CHRONULAC) 10 gram/15 mL solution Take 15 mL by mouth daily as needed for Other (constipatio n). 500 mL 3 05/25/2013 09/07/2013 docusate sodium (COLACE) 100 mg capsule Take 1 Cap by mouth 3 times daily as needed for Constipation . 90 Each 3 05/25/2013 09/07/2013 documented in this encounter Progress Notes * Candace Salas MD - 06/03/2013 1604 EST MFM ATTG Pt discussed and I agree with plan as described above. Candace Salas MD * Johnna Gregory MD - 05/26/2013 1207 EST Subjective Carolyn Portillo is a 32 y.o. at 22w1d here for a routine visit. Additional Notes: Doing well, no issues. Movement:Present Contractions / Labor:None Vaginal Bleeding: None Leakage of Fluid: None Objective Vitals: BP: 112/62 mmHg Weight : 60.328 kg (133 lb) Heart Rate: 148 Movement: Present Assessment 32 y.o. at 22w1d with Type 1 DM here for a routine visit. Plan Supervision of other high-risk (V23.89) Anatomy: detailed WNL echo: ordered for 23 weeks (scheduled for 06/07/13). Had declined aneuploidy screening. CBC @ 26 weeks. Will need growth q 4 weeks s/p 28 weeks. Diabetes in Type 1 DM follows with Endocrine. States control is good. Planning on starting a pump but having insurance issues. Discussed the signs and symptoms of pre-/term labor and when to call the office. Follow-up in 4 week(s). D/W Dr Salas. Johnna Gregory MD documented in this encounter Miscellaneous Notes * Assessment & Plan Note - Johnna Gregory MD - 05/26/2013 1206 ESTAssociated Problem(s): Diabetes mellitus in (Resolved 11/04/2013) Type 1 DM follows with Endocrine. States control is good. Planning on starting a pump but having insurance issues. * Assessment & Plan Note - Johnna Gregory MD - 05/26/2013 1205 ESTAssociated Problem(s): Supervision of other high-risk (Resolved 11/04/2013) Anatomy: detailed WNL echo: ordered for 23 weeks (scheduled for 06/07/13). Had declined aneuploidy screening. CBC @ 26 weeks. Will need growth q 4 weeks s/p 28 weeks. documented in this encounter Plan of Treatment Not on file documented as of this encounter Visit Diagnoses Diagnosis Type 1 diabetes mellitus ([facility])- Primary Type I (juvenile type) diabetes mellitus without mention of complication, not stated as uncontrolled Supervision of other high-risk documented in this encounter Care Teams Welding Pantograph Machine Operator Relationship Specialty Start Date End Date Huseyin Zazueta MD [address] [place] [address] PCP - General 07/16/09 documented as of this encounter
--- OUTSIDE RECORDS SUMMARY | 2024-05-02 15:21 | XMS_ITS | Encounter Summary ---
Author Organization [facility] Address [address] [place] [address] Care Team Providers Care Vamp Throater Name Role Phone Huseyin Zazueta MD Primary Care Provider [phone] Encounter Details Date Type Department Care Team (Late st Contact Info) Description 03/02/2013 Orders Only [facility] [phone] Magdalena Arzate MD [address] [facility], [address] [place] [phone] Unspecified high-risk (Primary Dx) Social History Tobacco Use [...] as of this encounter Visit Diagnoses Diagnosis Unspecified high-risk - Primary documented in this encounter Care Teams Vamp Throater Relationship Specialty Start Date End Date Huseyin Zazueta MD [address] [place] [address] PCP - General 07/16/09 documented as of this encounter
--- OUTSIDE RECORDS SUMMARY | 2024-05-02 15:21 | XMS_ITS | Encounter Summary ---
Author Organization [facility] Address [address] [place] [address] Care Team Providers Care Tile And Mottle Supervisor Name Role Phone Huseyin Zazueta MD Primary Care Provider [phone] Reason for Visit * Reason Comments Routine Visit Encounter Details Date Type Department Care Team (Late st Contact Info) Description 06/18/2013 13:00 EST Routine [facility] Obstetrics & Midwifery - [address] [phone] Cielo Rollins MD GA: 25w3d Social History Tobacco Use Types Packs/Day Years [...] Sign Reading Time Taken Comments Blood Pressure 112/64 06/18/2013 1300 EST Pulse - - Temperature - - Respiratory Rate - - Oxygen Saturation - - Inhaled Oxygen Concentration - - Weight 59.9 kg (132 lb) 06/18/2013 1300 EST Height - - Body Mass Index 24.94 04/27/2013 0922 EST documented in this encounter Progress Notes * Cielo Rollins MD - 06/18/2013 1333 EST Subjective: Carolyn Portillo is a 32 y.o. female at 25w3d here for a problem visit 2nd pressure . #1 IUP Patient reports intercourse yesterday AM - 5 am and then later that day passing her mucuos plug. Since that time , she c/o pelvic pressure. No bleeding,leaking , fetus less active than usual Contractions None, Movement decreased #2. Additional problems : see below Objective: Vitals: BP: 112/64 mmHg Weight : 59.875 kg (132 lb) Movement: Decreased Additional exam: Vaginal- no discharge, FFN done Cx- closed/short-1/2 -1 cm long, closed, well developed MARLO with parts easily palpable Assessment: 1. IUP at 25w3d: size equals dates Early cervical change - worrisome for PTL Pt should be at low risk for PTL with 3 previous term births but cervical exam is not normal for this GA. Plan Plan: Plan: 1. Discussed PTB and difficulty in making diagnosis. Discussed steroids for lung maturity butadvised that this would complicate her glucose control Pt to be sent to L+D for further monitoring, steroid course. Dr Asif and L[facility]D notified. . documented in this encounter Plan of Treatment Not on file documented as of this encounter Procedures Procedure Name Priority Date/Time Associated Diagnosis Comments FIBRONECTIN STAT 06/18/2013 13: 19 EST Premature uterine contractions documented in this encounter Results * FIBRONECTIN (06/18/2013 13:19 EST) Fibronectin Neg [facility] Appearance, swab Cloudy [facility] Specimen of unknown material (specimen) TOPOGRAPHY UNKNOWN / Unknown 06/18/2013 13:19 EST 06/18/2013 13:23 EST Cielo Rollins MD CHEMISTRY & BLOOD GAS ORDERA BLES Final Result [facility] [address] [place] [address] documented in this encounter Visit Diagnoses Diagnosis Premature uterine contractions- Primary Unspecified abnormality of labor, unspecified as to episode of care documented in this encounter Care Teams Tile And Mottle Supervisor Relationship Specialty Start Date End Date Huseyin Zazueta MD [address] [place] [address] PCP - General 07/16/09 documented as of this encounter
--- OUTSIDE RECORDS SUMMARY | 2024-05-02 15:21 | XMS_ITS | Encounter Summary ---
Author Organization [facility] Address [address] [place] [address] Care Team Providers Care Candy Wrapping Machine Operator Name Role Phone Huseyin Zazueta MD Primary Care Provider Reason for Visit * Reason Onset Date Comments Medications Refill 04/27/2013 Encounter Details Date Type Department Care Team (Late st Contact Info) Description 04/27/2013 Telephone [facility] Endocrinology - [address] [phone] Lacie Nichole RN CDE Medications Refill Social History Tobacco Use Types [...] Telephone Encounter - Lacie Nichole RN - 04/30/2013 1313 EST Error documented in this encounter Plan of Treatment Not on file documented as of this encounter Visit Diagnoses Diagnosis Type I (juvenile type) diabetes mellitus without mention of complication, uncontrolled- Primary documented in this encounter Orders Equipment Count Last Ordered Date First Orde red Date GENERIC DME ORDER 1 04/27/2013 documented in this encounter Care Teams Candy Wrapping Machine Operator Relationship Specialty Start Date End Date Huseyin Zazueta MD [address] [place] [address] PCP - General 07/16/09 documented as of this encounter
--- OUTSIDE RECORDS SUMMARY | 2024-05-02 15:22 | XMS_ITS | Encounter Summary ---
Author Organization [facility] Address [address] [place] [address] Care Team Providers Care Draw In Hand Name Role Phone Huseyin Zazueta MD Primary Care Provider [phone] Encounter Details Date Type Department Care Team (Late st Contact Info) Description 02/19/2013 Phlebotomy Only [facility] [address] [place] [address] Ore Buyer, Outpatient Type I (juvenile type) diabetes mellitus without mention of complication, uncontrolled; Type 1 diabetes mellitus (CMS-HCC) ([facility]); Diabetes mellitus, antepartum; Abnormal maternal glucose tolerance, antepartum Social History [...] Procedure Name Priority Date/Time Associated Diagnosis Comments PROTEIN, TOTAL, 24 HR, URINE Routine 02/19/2013 10:31 EDT Type I (juvenile type) diabetes mellitus without mention of complication, uncontrolled documented in this encounter Results * (ABNORMAL) TOTAL PROTEIN, URINE 24HR (02/19/2013 10:31 EDT) Tot Prot,Ur Random 9 mg/dl [facility] Tot Prot,24h Calc. 185(H) <150 mg/24hr [facility] Urine specimen (specimen) URINE / Unknown 02/19/2013 10:31 EDT 02/19/2013 11:20 EDT us Carlin Manriquez MD URINALYSIS ORDERABLES Final Re sult [facility] [address] [place] [address] documented in this encounter Visit Diagnoses Diagnosis Type I (juvenile type) diabetes mellitus without mention of complication, uncontrolled Diabetes mellitus, antepartum(648.03) Diabetes mellitus, antepartum Abnormal maternal glucose tolerance, antepartum documented in this encounter Care Teams Draw In Hand Relationship Specialty Start Date End Date Huseyin Zazueta MD [address] [place] [address] PCP - General 07/16/09 documented as of this encounter
--- OUTSIDE RECORDS SUMMARY | 2024-05-02 15:22 | XMS_ITS | Encounter Summary ---
Author Organization [facility] Address [address] [place] [address] Care Team Providers Care Nail Making Machine Tender Name Role Phone Huseyin Zazueta MD Primary Care Provider [phone] Reason for Visit * Reason Comments Diabetes Encounter Details Date Type Department Care Team (Latest Contact Info) Description 12/05/2012 8:40 EDT Office Visit [facility] Endocrinology - [facility] [address] [place] [address] Lorraine Figueroa NP [address] [facility] [address] [place] [address] Type 1 diabetes mellitus (CMS-HCC) [...] Sign Reading Time Taken Comments Blood Pressure 118/58 12/05/2012 0846 EDT Pulse 66 12/05/2012 0846 EDT Temperature - - Respiratory Rate - - Oxygen Saturation - - Inhaled Oxygen Concentration - - Weight 55.8 kg (123 lb 1.6 oz) 12/05/2012 0846 E DT Height 154.9 cm (5' 1) 12/05/2012 0846 EDT Body Mass Index 23.26 12/05/2012 0846 EDT documented in this encounter Patient Instructions * Patient Instructions* Lorraine Figueroa ANP - 12/05/2012 9:07 EDT Avoid trans and hydrogenated fats Replace flex pen with BD Jermaine cartridge pen. Be more aggressive with noon bolus Try to standardize treatment of lows. documented in this encounter Ordered Prescriptions Prescription Sig Dispense Quantity Refills Last Filled Start Date End Date insulin aspart (NOVOLOG) 100 unit/mL CartridgeIndicatio ns:Type 1 diabetes mellitus ([facility]) Uses 8:1 CHO ratio Usually 5-7 units/meals 2 Box 8 12/05/2012 3 documented in this encounter Progress Notes * Lorraine Figueroa ANP - 12/05/2012 1333 EDT [facility] Diabetes Follow-Up Note CHIEF COMPLAINT: Carolyn Portillo presents in clinic today with: No diagnosis found. HPI This is my first visit with Carolyn who has had type 1 diabetes for 3 years. She initially was started on oral agents, presumed to be type 2 and then insulin. She initially saw Dr Daigle in our practice and more recently has been followed by Dr Manriquez. There is no family history of diabetes, although her grandfather had hyperlipidemia and coronary artery disease. Hemoglobin A1c recently was 8.6. She currently uses Lantus 27 units a day. She had been on Levemir, but was developing welts. NovoLog is an 8:1 carb to insulin ratio, typically 5 units breakfast and at meals. She also has a CGM now, which she says has helped a great deal detect lows. However, being a single mother of 3, financeshave been a real struggle and she cannot use it is as regularly as she would like. She feels she ispretty good at counting her carbs. She is not interested in a pump at this time. She knows a more advanced model is coming out that would combine the probe for the pump and the sensor, which she is waiting for. She detects hypoglycemia sometimes in the 30s and she would eat whatever is available, usually Skittles, and then goes high overnight. I reviewed standardizing her treatment. It's usually.in the afternoon. Going back to taking her Lantus first thing in the morning has helped some. She boluses just as she eats, because it's usually salads. I did urge her to take it earlier, but I think she has decided this is the best arrangement for her. She does use a couple of programs to track her data on her phone. Blood sugars from her meter: Mornings range from 90 to 187, most scattered above 120. Noon are pretty steady, around 120 to 130; however, dinnertime they are mostly in the 200s or into the evening 300s and 3 readings late at night 137 to 214. She has not brought her CGM data today. No complaints of chest pain, shortness of breath, numbness, tingling, leg pain, no polyuria, polydipsia, or polyphagia. I suggested that a Debo jermaine insulin cartridge pen would be useful for her since she can adjust in half unit increments, which did interest her. Carolyn Portillo has had diabetes since 3 years Carolyn Portillo recently has a history of being in poor glycemic control. Patient's home regimen consists of has a current medication list which includes the following prescription(s): insulin aspart, glucagon, glucagon, simvastatin, ketone urine reagent strip, insulin glargine, insulin pen needles 31g x 5/16, blood glucose, and norelgestromin-ethinyl estradiol. The patient has experienced the following acute complications: hypoglycemia - moderate to severe and hyperglycemia - moderate to severe. History Substance Use Topics ??? Smoking status: Current Everyday Smoker -- 1.0 packs/day ??? Smokeless tobacco: Never Used ??? Alcohol Use: Yes occasional PHYSICAL EXAMINATION: Vitals: BP 118/58 Pulse 66 Ht 154.9 cm (61) Wt 55.838 kg (123 lb 1.6 oz) BMI 23.26 kg/m2 BMI: Body mass index is 23.26 kg/(m^2). On physical exam well developed woman in no acute distress. Heart and lung sound unremarkable with no carotid bruit. Neck supple without thyromegaly. No leg edema. LABS: Lab Results Component Value Date HGBA1C 8.6 11/22/2012 Lab Results Component Value Date CHOL 198 11/22/2012 HDL 59 11/22/2012 LDLBASE 126 11/22/2012 TRIG 66 11/22/2012 CHOLHDL 3.4 11/22/2012 Lab Results Component Value Date BUN 8* 11/22/2012 CREATININE 0.55 11/22/2012 NA 138 11/22/2012 K 4.1 11/22/2012 Lab Results Component Value Date ALT 20 11/22/2012 Lab Results Component Value Date LABALBU 4.1 11/22/2012 UCREA 8.3 11/22/2012 MICRALBCRRAT Unable to calculate ug/mg Crea result. 11/22/2012 ASSESSMENT/PLAN: : Blood sugars better, but still suboptimal. Her CGM has avoided some of the lows. I think the Novojunior pen would give her little more accuracy in her dosing, preventing some of the wide swings. It looks like she needs to be more aggressive as well with her lunch dose and perhaps breakfast bolusas well. She is knowledgeable in her diabetes management. Medically stable. Lipid panel was unremarkable except for LDL of 126, but I believe has started her simvastatin sincethen No proteinuria.Blood pressure stable. She is not on an KENDRICK or ARB. PLAN: No diagnosis found. Avoid trans and hydrogenated fats Replace flex pen with BD Jermaine cartridge pen. Be more aggressive with noon bolus Try to standardize treatment of lows. Lipids not checked since started statin. Our office will provide ongoing management of this patients' diabetes with a hemoglobin A1C goal ofless than 7. We have instructed the patient to call us with blood sugar values. I would like you tocontinue to manage their blood pressure, lipids and other preventive care. PLAN: Avoid trans and hydrogenated fats Replace flex pen with BD Jermaine cartridge pen. Be more aggressive with noon bolus Try to standardize treatment of lows. Glucose monitoring QID. Referred to diabetic education program. Referred to police guard no. Patient referred to eye hospice patient care secretary for annual dilated eye exam. Lifestyle modifications: recommend compliance with a diabetic diet Patient does demonstrate knowledge of diabetes and expectations. Patient does understand medication regimen. Barriers to adherence: Financial and Emotional. Goals and plan to achieve these discussed Systolic blood pressure less than 130. And diastolic blood pressure less than 80. Hemoglobin A1C less than 7%. LDL cholesterol: 70 to 99. HDL - males >40 and females > 50 mgm/dl Trig less than 150 - fasting BALDO Lal 12/05/2012 13:33 I spent a total of 25 minutes in face to face time with this patient, and 15 minutes of that time was spent in counseling and coordination of care as described in This progress note documented in this encounter Plan of Treatment Not on file documented as of this encounter Visit Diagnoses Diagnosis Type 1 diabetes mellitus ([facility])- Primary Type I (juvenile type) diabetes mellitus without mention of complication, not stated as uncontrolled documented in this encounter Discontinued Medications Medication Sig Discontinue Reason Start Date End Da te insulin aspart (NOVOLOG FLEXPEN) 100 unit/mL injection pen Inject into skin with meals up to 35 units daily. (called in to zoraida leon) Alternate therapy 02/14/2012 12/05/2012 documented as of this encounter Care Teams Nail Making Machine Tender Relationship Specialty Start Date End Date Huseyin Zazueta MD [address] [place] [id number] PCP - General 07/16/09 documented as of this encounter
--- OUTSIDE RECORDS SUMMARY | 2024-05-02 15:22 | XMS_ITS | Encounter Summary ---
Author Organization [facility] Address [address] [place] [address] Care Team Providers Care Organizational Consultant Name Role Phone Huseyin Zazueta MD Primary Care Provider [phone] Reason for Visit * Reason Onset Date Comments Diabetes 01/22/2013 Encounter Details Date Type Department Care Team (Late st Contact Info) Description 01/22/2013 Telephone [facility] Endocrinology - [address] [phone] Lacie Nichole RN CDE Diabetes Social History [...] Telephone Encounter - Lacie Nichole RN - 01/22/2013 1511 EDT Left detailed voice message that Dr Manriquez can see her Tuesday at 3 pm and asked her to call to accept appt. documented in this encounter Plan of Treatment Not on file documented as of this encounter Visit Diagnoses Not on filedocumented in this encounter Care Teams Organizational Consultant Relationship Specialty Start Date End Date Huseyin Zazueta MD [address] [place] [address] PCP - General 07/16/09 documented as of this encounter
--- OUTSIDE RECORDS SUMMARY | 2024-05-02 15:22 | XMS_ITS | Encounter Summary ---
Author Organization [facility] Address [address] [place] [address] Care Team Providers Care Glass Embosser Name Role Phone Huseyin Zazueta MD Primary Care Provider [phone] Encounter Details Date Type Department Care Team (Late st Contact Info) Description 02/13/2013 Orders Only [facility] - [facility] [address] [place], [place] [phone] Magdalena Arzate MD [address] [facility], [address] [place] [address] Supervision of high-risk (Primary Dx) Social History [...] documented as of this encounter Results * BACTERIAL CULTURE, URINE (02/15/2013 16:50 EDT) Specimen Description Urine [facility] Result Less than 10,000 CFU/ml Mixed gram positive growth [facility] Report Status 02/17/2013 Final [facility] Urine specimen (specimen) URINE / Unknown 02/15/2013 16:50 EDT 02/15/2013 17:31 EDT Magdalena Arzate MD MICROBIOLOGY - GENERA L ORDERABLES Final Result Performing Organization Address [facility] Co de Phone Number [facility] [address] [place] [address] * HIV 1/2 ANTIBODY (02/15/2013 16:04 EDT) HIV 1/2 Antibody Negative [facility] Comment: Reference Range: ??Negative Assayed utilizing Simplee chemiluminescent technology. Blood specimen (specimen) 02/15/2013 16:04 EDT 02/15/2013 16:23 EDT Magdalena Arzate MD IMMUNOLOGY AND SEROLO GY ORDERABLES Final Result Performing Organization Address [facility] de Phone Number [facility] [address] [place] [address] documented in this encounter Visit Diagnoses Diagnosis Supervision of high-risk - Primary Unspecified high-risk documented in this encounter Orders Lab Orders Without Results Count Last Ordered D ate First Ordered Date CHLAMYDIA/GC AMPLIFIED 1 02/13/2013 documented in this encounter Care Teams Glass Embosser Relationship Specialty Start Date End Date Huseyin Zazueta MD [address] [place] [address] PCP - General 07/16/09 documented as of this encounter
--- OUTSIDE RECORDS SUMMARY | 2024-05-02 15:22 | XMS_ITS | Encounter Summary ---
Author Organization [facility] Address [address] [place] [address] Care Team Providers Care Ornamental Metalwork Designer Name Role Phone Huseyin Zazueta MD Primary Care Provider [phone] Reason for Visit * Reason Comments Labs Only [email or web address] Encounter Details Date Type Department Care Team (Late st Contact Info) Description 08/18/2012 15:15 EDT Procedure visit [facility] Endocrinology - [address] [phone] Unknown, Provider, Phlebotomy, [facility] Social History Tobacco Use Types Packs/Day Years [...] as of this encounter Progress Notes * Rochelle Giles - 08/18/2012 1518 EDT Fingerstick blood sample obtained for POCT Hemoglobin A1C performed for this DOS at the order of Dr. Manriquez documented in this encounter Plan of Treatment Not on file documented as of this encounter Visit Diagnoses Not on filedocumented in this encounter Care Teams Ornamental Metalwork Designer Relationship Specialty Start Date End Date Huseyin Zazueta MD [address] [facility] [address] PCP - General 07/16/09 documented as of this encounter
--- OUTSIDE RECORDS SUMMARY | 2024-05-02 15:22 | XMS_ITS | Encounter Summary ---
Author Organization [facility] Address [address] [place] [address] Care Team Providers Care Cow Washer Name Role Phone Huseyin Zazueta MD Primary Care Provider [phone] Reason for Visit * Reason Comments Labs Only Encounter Details Date Type Department Care Team (Latest Contact Info) Description 01/26/2013 15:45 EDT Procedure visit [facility] Endocrinology - [address] [phone] Unknown, Provider, Phlebotomy, [facility] Type I (juvenile type) diabetes mellitus [...] encounter Progress Notes * Nohemi Watkins - 01/26/2013 1605 EDT Blood sample drawn from vein for testing at the order of Dr. Mitra Watts was directly supervised by and he/she was in the suite and immediately available for the entire time the service was provided. documented in this encounter Plan of Treatment Not on file documented as of this encounter Procedures Procedure Name Priority Date/Time Associated Diagnosis Comments FRUCTOSAMINE Routine 01/26/2013 15:59 EDT Type I (juvenile type) diabetes mellitus without mention of complication, uncontrolled QUANT BETA HCG, Routine 01/26/2013 15:59 EDT HEMOGLOBIN A1C Routine 01/26/2013 15:59 EDT Type I (juvenile type) diabetes mellitus without mention of complication, uncontrolled documented in this encounter Results * (ABNORMAL) HCG FOR (01/26/2013 15:59 EDT) Quant Beta HCG, Preg 4792(H) <5 mIU/ml [facility] Comment: Reference Range: Negative = <5 Indeterminate = 5-25 recommend repeat in 48 hours. Positive = >25 01/26/2013 15:5 9 EDT 01/26/2013 18:43 EDT us Carlin Manriquez MD CHEMISTRY & BLOOD GAS ORDERABL ES Final Result Performing Organization Address [facility] de Phone Number [facility] [address] [place] [address] * (ABNORMAL) FRUCTOSAMINE (01/26/2013 15:59 EDT) Fructosamine, S 297(H) 200 - 285 mcmol/L [facility] Comment: Performed by: [facility], [address] [facility], [place] [address], Dental Technician Instructor: Sonali Navarro, Ph.D. Blood specimen (specimen) 01/26/2013 15:59 EDT 01/26/2013 18:43 EDT Carlin Manriquez MD CHEMISTRY & BLOOD GAS ORDERABL ES Final Result Performing Organization Address City/[facility] Co de Phone Number [facility] [address] [place] [address] * HEMOGLOBIN A1C (01/26/2013 15:59 EDT) Hemoglobin A1C 8.4 % [facility] Comment: Reference Range: <5.7% Normal 5.7-6.4% Increased risk for diabetes =>6.5% Diagnostic for diabetes (if confirmed) The A1c goal for non adults in general is <7%. The A1c goal for selected patients may be significantly lower than 7% if this can be achieved without significant hypoglycemia or other adverse effects of treatment. Est Avg Glucose 194 mg/dl [facility] Comment: eAG represents the A1c result expressed as average glucose in mg/dl. Blood specimen (specimen) 01/26/2013 15:59 EDT 01/26/2013 18:43 EDT us Carlin Manriquez MD CHEMISTRY & BLOOD GAS ORDERABL ES Final Result [facility] [address] [place] [address] documented in this encounter Visit Diagnoses Diagnosis Type I (juvenile type) diabetes mellitus without mention of complication, uncontrolled- Primary documented in this encounter Care Teams Cow Washer Relationship Specialty Start Date End Date Huseyin Zazueta MD [address] [place] [address] PCP - General 07/16/09 documented as of this encounter
--- OUTSIDE RECORDS SUMMARY | 2024-05-02 15:22 | XMS_ITS | Encounter Summary ---
Author Organization [facility] Address [address] [place] [address] Care Team Providers Care Intermodal Customer Service Name Role Phone Huseyin Zazueta MD Primary Care Provider [phone] Reason for Visit * Reason Comments Diabetes Encounter Details Date Type Department Care Team (Latest Contact Info) Description 02/15/2013 9:40 EDT Office Visit [facility] Endocrinology - [address] [address] Carlin Manriquez MD [address] [place] [address], [address] [phone] Type 1 diabetes mellitus (CMS-HCC) (HCC-CMS) (Primary Dx); Diabetes mellitus, antepartum; Abnormal maternal glucose tolerance, [...] Sign Reading Time Taken Comments Blood Pressure 102/60 02/15/2013 0939 EDT Pulse 84 02/15/2013 0939 EDT Temperature - - Respiratory Rate - - Oxygen Saturation - - Inhaled Oxygen Concentration - - Weight 54.5 kg (120 lb 3.2 oz) 02/15/2013938 E DT Height 154.9 cm (5' 1) 02/15/2013938 EDT Body Mass Index 22.71 02/15/2013938 EDT documented in this encounter Patient Instructions * Patient Instructions* Carlin Manriquez - 02/15/2013 9:56 EDT Super job overall! ?? Stay at Lantus 30 units each night. ?? Change your carb ratio Novolog from 1:8 to 1:7 and be very careful about bolusing after meals. Check fructosamine today and do the 24 hr urine collection over the weekend if you can. Send us some numbers in 1-2 weeks and get set up to see us in the [facility] joint clinic in 4 weeks or so. Come see me at the [facility] (should be 04/02 - or maybe 03/26). documented in this encounter Progress Notes * Carlin Manriquez - 02/15/2013 0946 EDT Endocrinology Follow-up Note Date of Consultation: 02/15/2013 Reason for Consultation: Management of antepartum type 1 diabetes mellitus Problem List: 1. Antepartum type 1 diabetes mellitus 2. Intrauterine (current gestational age: 7 weeks 6 days by date of LMP) 3. LMP 12/22/2012 HPI: Carolyn Sosa is a 32 y.o. female seen in follow-up in the diabetes clinic for management of antepartum type 1 diabetes mellitus with a newly discovered . Hayley has had diabetes since 07/2009, so just over 3 years. She has 3 children at home and is just she is .. Hayley has been doing better control and her blood sugars over the past several weeks than she ever did before that. She had been working on this prior to conception, despite the fact that this was not a planned . Today Hayley is very happy. She has 3 children, and her boyfriend currently has 4 children, so this will make for a large family, but she is excited. She continues to work for [employer] and commutes a long distance back and forth between home and work, which is difficult. She continues to work with her ex- on legal ramifications of having her move her children further away from him. Her current diabetes regimen includes Lantus insulin 30 units each morning (increased from 27 just this Morning), and NovoLog insulin with an insulin to carb ratio of 1:8. Recently that has been too little insulin and she has had some hyperglycemia after meals into the 200 range. She then often gives a bolus after this and then ends up with a low blood sugar. In addition, for instance last night,she had a bowl of cereal for dinner which was 24 g of carbs. She gave 4 units rather than the 3 that would have been appropriate for a 1:8 ratio, and was still high afterwards. However, later she went down to 24. She is having significant hypoglycemia unawareness. She believes that her carb ratio is insufficient and she is doing too much chasing of her glucoses. I agree with her assessment. She has glucagon at home and both her oldest child, and her boyfriend both know how to use it. She is checking her glucose upwards of 12 times daily in an effort to keep her glucoses tightly regulated and to avoid hypoglycemia, especially now that hypoglycemia awareness has declined. Results for CAROLYN SOSA ( ) as of 01/26/2013 15:59 Ref. Range 12/28/2011 15:27 05/09/2012 08:57 08/18/2012 15:12 11/22/2012 11:49 11/22/2012 11:55 Hemoglobin A1C No range found 8.6 Hemoglobin A1c, POC Latest Range: 5.7 9.0 (A) 9.4 (A) 9.3 (A) Est Avg Glucose No range found 200 Ur Alb ug/mg Crea No range found Unable to calculate ug/mg Crea result. Ur Albumin mg/dl No range found <0.2 1. Obstetrics History: : 6 Para: 3 [...] 6 current LMP: 12/22/2012 Current gestational age: 7weeks 6 days by dates, uncertain of US, has US today Estimated delivery date: 09/28/2013 Pre- weight: 123 lb Current weight: 120 lb 2. Diabetes History: When diagnosed: 07/2009 Previous treatment: always on insulin Current treatment: Lantus 27 un qam, Novolog 1:8 with meals, but frequent hypoglycemia on this regimen and has alreadybegun to decrease doses on her own Treatment adherence: Excellent, especially recently Home glucose monitoring: Fastin - 232, many in the high 90s 2-hours postbreakfast:50-223, most under 110 2-hours postlunch: 36-266, most under 145 2-hours postdinner: 24-348, most under 170 Hypoglycemia/availability of glucagon emergency kit at home: has glucagon and boyfriend and oldest daughter know how to use it, has never had to use it HbA1c trend: HbA1c //: //: //: Lab Results Component Value Date HGBA1C 8.4 01/26/2013 HGBA1C 8.6 11/22/2012 HGBA1C 9.3* 08/18/2012 HGBA1C 9.4* 05/09/2012 HGBA1C 9.0* 12/28/2011 Fructosamine trend: Component Latest Ref Rng 01/26/2013 Hemoglobin A1C 8.4 Est Avg Glucose 194 Fructosamine, S 200 - 285 mcmol/L 297 (H) Weight: 120 lb now, down 3 pounds compared to before Eating habits: Mostly 3 meals daily, some snacks, nausea has resolved Physical activity: Fairly active, walks, bikes, does recreational exercise with children and boyfriend Previous referral to dietitian/adaptive physical educator: Sees Lacie Nichole and Pam Miranda Psychosocial, cultural, or economic factors that might influence management of diabetes: Doing much better recently, has hectic life and long commute, but does a great job right now Previous hospitalization for hyperglycemic crisis: None Associated macro- and microvascular complications: None Risk factors for atherosclerotic disease: None other than T1DM Family history of diabetes: None Patient Active Problem List Diagnoses ??? Type 1 diabetes mellitus ??? Smoker ??? Pure hypercholesterolemia Past Medical History Diagnosis Date ??? Kidney stones ??? hematuria & adbominal pain ??? Diabetes mellitus 07/2009 eye exam annually No past surgical history on file. Current Outpatient Prescriptions Medication Sig Dispense Refill ??? blood glucose (ONE TOUCH ULTRA TEST) test strips 12 Strips by [facility] (non- drug; combo route) route daily. ICD-9: 648.03 400 Each 11 ??? lancets (ONE TOUCH SURESOFT LANCING DEV) Test glucose 12 times daily: ICD-9 648.03 400 Each 11 ??? insulin aspart (NOVOLOG) 100 unit/mL Cartridge Uses 8:1 CHO ratio Usually 5- 7 units/meals 2 Box8 ??? glucagon (GLUCAGON EMERGENCY) 1 mg injection Inject 1 mg into the skin once for 1 dose. 2 Each 6 ??? glucagon (GLUCAGON EMERGENCY) 1 mg injection Use as directed. 2 Each 6 ??? simvastatin (ZOCOR) 20 mg tablet Take 20 mg by mouth daily. ??? ketone urine reagent strip (KETOSTIX) Use 1 Strip as directed as needed. if blood glucose is greater than 250 (for 2 consecutive readings), if ill, and/or if vomiting. 50 Each 5 ??? insulin glargine (LANTUS SOLOSTAR PEN) 100 unit/mL (3 mL) injection pen Inject into the skin 2 times daily. 18 units in am and 12 units in pm 5 Syringe 11 ??? insulin pen needles 31G x 5/16 Use 5 daily. 500 Each 3 ??? norelgestromin-ethinyl estradiol (ORTHO EVRA) 150-20 mcg/[address] 1 Patch onto the skin every 7 days. Apply new patch on same day of week for 3 weeks. No patch week 4. Allergies: Levemir History Social History ??? Marital Status: Spouse Name: N/A Number of Children: N/A ??? Years of Education: N/A Social History Main Topics ??? Smoking status: Current Everyday Smoker -- 1.0 packs/day ??? Smokeless tobacco: Never Used ??? Alcohol Use: Yes occasional ??? Drug Use: ??? Sexually Active: [...] reviewed and are negative. Physical Examination: BP 102/60 Pulse 84 Ht 154.9 cm (61) Wt 54.522 kg (120 lb 3.2 oz) BMI 22.71 kg/m2 LMP 12/22/2012 Constitutional: Oriented to person, [...] Data: Lab Results Component Value Date HGBA1C 8.4 01/26/2013 HGBA1C 8.6 11/22/2012 HGBA1C 9.3* 08/18/2012 HGBA1C 9.4* 05/09/2012 HGBA1C 9.0* 12/28/2011 Lab Results Component Value Date NA 138 11/22/2012 K 4.1 11/22/2012 CL 104 11/22/2012 CO2 25 11/22/2012 BUN 8* 11/22/2012 CREATININE 0.55 11/22/2012 SERGLU 215* 11/22/2012 CALCIUM 9.6 11/22/2012 CALCCA 9.9 11/22/2012 Lab Results Component Value Date CHOL 198 11/22/2012 TRIG 66 11/22/2012 HDL 59 11/22/2012 LDLBASE 126 11/22/2012 CHOLHDL 3.4 11/22/2012 No results found for this basename: WBC, HGB, HCT, PLT Lab Results Component Value Date TP 7.1 11/22/2012 LABALBU 4.1 11/22/2012 TBIL <0.5 11/22/2012 ALT 20 11/22/2012 AST 16 11/22/2012 ALKPHOS 56 11/22/2012 Lab Results Component Value Date TSH 0.96 02/20/2010 TSH 0.57 07/17/2009 Assessment: Carolyn Sosa is a 32 y.o. female 1. Antepartum type 1 diabetes mellitus. Current intrauterine (5 weeks 0 days): Hayley is an incredibly nice 32-year-old female with Type 1 DM who is . Although this was unintentional, she is excited about it. Her glucoses are as good as I have ever seen him, and the trend towards better control of her glucoses started prior to , which is outstanding. Carolyn is having significant hypoglycemia and has a certain amount of hypoglycemia unawareness. She often doesnot feel it until it in the 30s or 40s. Part of the issue is that she thinks her carb ratio is not covering her meals, so she is adding a next her unit and still has post prandial hyperglycemia. She then gets a correction and often overdoes it when she give the correction after meals, which is fairly typical. I think we need to tighten up her carb ratio. She independently increased her Lantus dose as of yesterday which I think is appropriate. She has fasting glucoses in the 80s and 90s some days but had been in the 150s to 170s one week ago. She has Lacie Nichole's e-mail address as well as Mytonomy, and we will send us glucoses weekly. Hayley has an appointment in [facility] today for an ultrasound and to see her provider. After that, I would like for her to come back to the joint MFM/endocrine clinic. I generally attended the second time each month which is generally the third Tuesday of the month. This should be March 26 but I do not see it on her schedule yet. Patient education: - We discussed importance of optimal glycemic control to prevent both maternal and complications. Maternal complications include excessive weight gain, pre-eclampsia and increased need for C-sections. Long-term maternal complications include retinopathy, nephropathy, neuropathy and CAD. complications include macrosomia, traumatic vaginal delivery and hypoglycemia/respiratorydistress syndrome. Pharmacotherapy: - Lantus: increase from 27 to 30 un daily to avoid hypoglycemia - Novolog: change carb ratio from 1:8 to 1:7 and use less with lower carb meals and more with higher carb meals Labs: - Fructosamine today - 24 hr urine protein in the next 1-2 weeks as baseline Home glucose monitoring: - Check FSBG 10 [...] in insulin doses. Lifestyle modification: - Patient will meet with a dietitian in the near future to discuss medical nutrition therapy. We briefly discussed observing a 3 meal [...] 30 un as above (morning injections) 2. Increase carb ratio from 1:8 to 1:7 avoid post prandial hyperglycemia which is leading to postprandial corrections that are causing hypoglycemia later 3. Check FSBG 10 times daily: fasting, 1-hour or 2-hours postprandial, and anytime there is persistent hyperglycemia or hypoglycemia 4. Glucose targets: (a) Fastin or less (b) 1-hour postprandial: 140 or less (c) 2-hours postprandial: 120 or less 5. Call/fax glucose readings on a weekly basis. 6 Follow-up: RTC on 03/26/2013 or 04/02/2013 (my next MFM/Endo date) Carlin Manriquez MD documented in this encounter Plan of Treatment Not on file documented as of this encounter Visit Diagnoses Diagnosis Type 1 diabetes mellitus ([facility])- Primary Type I (juvenile type) diabetes mellitus without mention of complication, not stated as uncontrolled Diabetes mellitus, antepartum(648.03) Diabetes mellitus, antepartum Abnormal maternal glucose tolerance, antepartum documented in this encounter Orders Lab Orders Without Results Count Last Ordered D ate First Ordered Date TOTAL PROTEIN, URINE 24HR 1 02/15/2013 documented in this encounter Care Teams Intermodal Customer Service Relationship Specialty Start Date End Date Huseyin Zazueta MD [address] [place] [address] PCP - General 07/16/09 documented as of this encounter
--- OUTSIDE RECORDS SUMMARY | 2024-05-02 15:22 | XMS_ITS | Encounter Summary ---
Author Organization [facility] Address [address] [place] [address] Care Team Providers Care Motor Home Electrical Foreman Name Role Phone Huseyin Zazueta MD Primary Care Provider [phone] Reason for Visit * Reason Onset Date Comments Other 02/08/2013 Encounter Details Date Type Department Care Team (Late st Contact Info) Description 02/08/2013 Telephone [facility] - [facility] [address], [place] [id number] Lakisha Mariano, RN Other Social History Tobacco Use Types [...] encounter Miscellaneous Notes * Telephone Encounter - Lakisha Mariano, RN - 02/09/2013 1148 EDT Spoke to pt. Pt c/o small brownish vaginal spotting when wiping after going to the bathroom Started on 02/07/13. Mild cramping but denies pain. I called [facility] blood bank department to confirm ABO/Rh. Paula in the lab reports a blood type on file from 2004 - results O positive. Paula states that back in 2004 documented blood types not in computer system, but written manually in book. Unable to have a copy of reported blood type. Spoke to pt. She recounts not receiving Rhogam during previous pregnancies. Pt has an ultrasound scheduled for 02/15/13. She states she feels fine to wait until her appt. She will continue to monitor spotting and was informed to call office back if bleeding increases from anything more than occasional spotting and if discomfort any worse than mild cramping. She was instructed on how to reach energy economist physician if any of these symptoms on the weekend or after business hours. * Telephone Encounter - Lakisha Mariano RN - 02/08/2013 1441 EDT Call from pt. Left message that she had spotting. Pt is with documented IUP. Returned pt call. Left message for her to call office back. documented in this encounter Plan of Treatment Not on file documented as of this encounter Visit Diagnoses Not on filedocumented in this encounter Care Teams Motor Home Electrical Foreman Relationship Specialty Start Date End Date Huseyin Zazueta MD [address] [place] [address] PCP - General 07/16/09 documented as of this encounter
--- OUTSIDE RECORDS SUMMARY | 2024-05-02 15:22 | XMS_ITS | Encounter Summary ---
Author Organization [facility] Address [address] [place] [address] Care Team Providers Care Fruit Farmworker Name Role Phone Huseyin Zazueta MD Primary Care Provider [phone] Encounter Details Date Type Department Care Team (Latest Contact Info) Description 03/02/2013 9:41 EDT - 03/02/2013 23:59 EDT Hospital Encounter [facility] [address] [place] [address] Unknown, Provider, MD Discharge Disposition: Home or [...] 100 unit/mL CartridgeIndicatio ns:Type 1 diabetes mellitus ([facility]) Uses 8:1 CHO ratio Usually 5-7 [...] 3 weeks. No patch week 4. 3 simvastatin (ZOCOR) 20 mg tablet Take 20 mg by mouth daily. 4 documented as of this encounter Discharge Disposition Disposition Code Departure Means Destination Home or Self Penitentiary documented in this encounter Plan of Treatment Not on file documented as of this encounter Visit Diagnoses Not on filedocumented in this encounter Care Teams Fruit Farmworker Relationship Specialty Start Date End Date Huseyin Zazueta MD [address] [place] [address] PCP - General 07/16/09 documented as of this encounter
--- OUTSIDE RECORDS SUMMARY | 2024-05-02 15:22 | XMS_ITS | Encounter Summary ---
Author Organization [facility] Address [address] [place] [address] Care Team Providers Care Aluminum Polisher Name Role Phone Huseyin Zazueta MD Primary Care Provider [phone] Reason for Visit * Reason Comments Routine Visit Encounter Details Date Type Department Care Team (Late st Contact Info) Description 03/02/2013 9:20 EDT Routine [facility] Obstetrics & Midwifery - [address] [id number] Johnna Gregory MD [address] [place] [phone] GA: 10w0d Social History Tobacco Use Types Packs/Day Years [...] Sign Reading Time Taken Comments Blood Pressure 108/60 03/02/2013 0917 EDT Pulse - - Temperature - - Respiratory Rate - - Oxygen Saturation - - Inhaled Oxygen Concentration - - Weight 57.2 kg (126 lb) 03/02/2013 0917 EDT Height - - Body Mass Index 23.42 02/15/2013 1456 EDT documented in this encounter Progress Notes * Seth Singh MD - 03/02/2013 1429 EDT MFMS ATTENDING I discussed the patient with the fellow at the time of the visit. I agree with the findings and theplan of care documented in the fellow's note. SETH SINGH MD * Johnna Gregory MD - 03/02/2013 0944 EDT Subjective Carolyn Portillo is a 32 y.o. at 10w0d here for a routine visit. Additional Notes: Feeling tired. Breasts are tender, but no nausea/vomiting. Overall doing well. States she had lows last week with blood sugars and was worried because she didn't feel herself getting low until she was in the 20-40s. Has since modified carb ratio to run slightly higher. Has been following with Endocrine office. Movement:None Contractions / Labor:None Vaginal Bleeding: None Leakage of Fluid: None Objective Vitals: BP: 108/60 mmHg Weight : 57.153 kg (126 lb) Movement: N/A Assessment 32 y.o. at 10w0d with Type 1 DM here for a routine visit. Plan Supervision of other high-risk Reviewed labs with her, all normal. Discussed upcoming ultrasounds. Revisited aneuploidy screening, declines all testing. Diabetes in Following with endocrine at [place]. Has adjusted carb/insulin ration over the past week as had several profound lows last week (20s). Plans to continue to work with them re- optimizing control. Discussed the signs and symptoms of pre-/term labor and when to call the office. Follow-up in 4 weeks Johnna Gregory MD documented in this encounter Miscellaneous Notes * Assessment & Plan Note - Johnna Gregory MD - 03/02/2013 0908 EDTAssociated Problem(s): Diabetes mellitus in (Resolved 11/04/2013) Following with endocrine at [address]. Has adjusted carb/insulin ration over the past week as had several profound lows last week (20s). Plans to continue to work with them re- optimizing control. * Assessment & Plan Note - Johnna Gregory MD - 03/02/2013 0942 EDTAssociated Problem(s): Supervision of other high-risk (Resolved 11/04/2013) Reviewed labs with her, all normal. Discussed upcoming ultrasounds. Revisited aneuploidy screening, declines all testing. documented in this encounter Plan of Treatment Not on file documented as of this encounter Visit Diagnoses Diagnosis Diabetes in - Primary Diabetes mellitus of mother, complicating , childbirth, or the puerperium, unspecified as to episode of care documented in this encounter Care Teams Aluminum Polisher Relationship Specialty Start Date End Date Huseyin Zazueta MD [address] [place] [address] PCP - General 07/16/09 documented as of this encounter
--- OUTSIDE RECORDS SUMMARY | 2024-05-02 15:22 | XMS_ITS | Encounter Summary ---
Author Organization [facility] Address [address] [place] [address] Care Team Providers Care Water And Gas Helper Name Role Phone Huseyin Zazueta MD Primary Care Provider Reason for Visit * Reason Onset Date Comments Diabetes 02/19/2013 Encounter Details Date Type Department Care Team (Late st Contact Info) Description 02/19/2013 Telephone [facility] Endocrinology - [address] [phone] Lacie Nichole, RN CDE Diabetes Social History [...] * Telephone Encounter - Carlin Manriquez - 02/20/2013 0805 EDT error * Telephone Encounter - Lacie Nichole RN - 02/19/2013 1337 EDT Images from the original note were not included. email from pt: Khurram Medellin, Please see attached numbers for the past few days (since my apt on ). I am going back to a 1-8 ratio if my carb intake is over 40, and I???m going to try a 1-10 if my intake is under that. I have had lows every day since . Every night I have had at least one and I???m having at least one during the day. Hayley Portillo documented in this encounter Plan of Treatment Not on file documented as of this encounter Visit Diagnoses Not on filedocumented in this encounter Care Teams Water And Gas Helper Relationship Specialty Start Date End Date Huseyin Zazueta MD [address] [place] [address] PCP - General 07/16/09 documented as of this encounter
--- OUTSIDE RECORDS SUMMARY | 2024-05-02 15:22 | XMS_ITS | Encounter Summary ---
Author Organization [facility] Address [address] [place] [address] Care Team Providers Care Manager Home Improvement Name Role Phone Huseyin Zazueta MD Primary Care Provider [phone] Reason for Visit * Reason Comments Diabetes Encounter Details Date Type Department Care Team (Latest Contact Info) Description 07/07/2012 10:30 EST Nurse Only [facility] Endocrinology - [address] [address] Unknown, Provider, Lacie Otto, RN CDE Type [...] Sign Reading Time Taken Comments Blood Pressure 92/62 07/07/2012 1034 EST Pulse 76 07/07/2012 1034 EST Temperature - - Respiratory Rate - - Oxygen Saturation - - Inhaled Oxygen Concentration - - Weight 56.3 kg (124 lb 3.2 oz) 07/07/[address] Height 154.9 cm (5' 1) 07/07/2012 1034 EST Body Mass Index 23.47 07/07/2012 1034 EST documented in this encounter Patient Instructions * Patient Instructions* Lapidow, Lacie A, RN - 07/07/2012 10:54 EST Continue same lantus for now 20 units am and 12 units pm but if mornings get any lower start backing off on night dose. If daytime sugars start getting low you will need to back off on Morning dose When you are ill or under a lot of stress you need extra insulin. You may need up to 20% more both lantus and novolog Return to see nurse practitioner in 45 days. i will contact dexcom about sensor You will call clinic with any issues Sick Day Plan Why worry about sick days? High blood sugars can occur when your body is sick or stressed. This is true even if you are not eating. Examples of sick day: 1. Illness: such as a cold, flu, nausea, vomiting or diarrhea 2. Infection: such as in the skin, foot, UTI, lung 3. Injury: such as a sprain, broken bone 4. Surgery 5. Major emotional stress Sick Day Plan Follow the steps below when you are sick to help you stay out of the hospital. 1. Take your diabetes medication Even if you cannot eat your usual meals. If unsure call your health provider. 2. Check blood sugar before breakfast, lunch, supper and bedtime If you have type 1 diabetes, check urine ketones when blood sugar is 250 or higher. 3. If you can eat your meals: Every 1-2 hours drink 6-8 ounces of fluid that are sugar-free and caffeine free such as: Water Broth Decaffeinated Tea Diet frederick erick 4. If you are unable to eat your usual meal plan: Replace the carbohydrates (sugar and starches) inyour meal plan. Eat or drink one to two of the items below every 1-2 hours (each item is equal to 15 grams of carbohydrate): Applesauce Juice Regular Jell-O Fruited yogurt Regular pudding Gatorade Chicken soup Sarepta ?? cup ?? cup ?? cup ?? cup ?? cup ?? cup 1 cup 1 toast Hot or cold cereal Broth / consumme Eggnog Ice cream Milkshake Sherbet Popsicle Honey ?? cup ?? cup ?? cup ?? cup ?? cup ?? cup 1 pop 1 Tbsp. 5. Rest 6. Call your health provider if: Vomiting or diarrhea that persists for more than 4 hours Blood sugar values are 250 or higher on 2 occasions in one day If you have a temperature over 101 degrees If you have moderate or large ketones documented in this encounter Ordered Prescriptions Prescription Sig Dispense Quantity Refills Last Filled Start Date End Date glucagon (GLUCAGON EMERGENCY) 1 mg injection Use as directed. 2 Each 6 07/07/2012 04/27/2013 glucagon (GLUCAGON EMERGENCY) 1 mg injection Inject 1 mg into the skin once for 1 dose. 2 Each 6 07/07/2012 04/27/2013 documented in this encounter Progress Notes * Lacie Nichole RN - 07/07/2012 1118 EST BP 92/62 Pulse 76 Ht 154.9 cm (61) Wt 56.337 kg (124 lb 3.2 oz) BMI 23.47 kg/m2 Current Outpatient Prescriptions Medication Sig Dispense Refill ??? simvastatin (ZOCOR) 20 mg tablet Take 20 mg by mouth daily. ??? ketone urine reagent strip (KETOSTIX) Use 1 Strip as directed as needed. if blood glucose is greater than 250 (for 2 consecutive readings), if ill, and/or if vomiting. 50 Each 5 ??? insulin aspart (NOVOLOG FLEXPEN) 100 unit/mL injection pen Inject into skin with meals up to 35units daily. (called in to [facility]) 30 mL 3 ??? insulin glargine (LANTUS SOLOSTAR PEN) 100 unit/mL (3 mL) injection pen Inject into the skin 2 times daily. 18 units in am and 12 units in pm 5 Syringe 11 ??? insulin pen needles 31G x 5/16 Use 5 daily. 500 Each 3 ??? blood glucose test strips Brand: Freestyle Lite. Test 6 times daily 600 Each 3 ??? norelgestromin-ethinyl estradiol (ORTHO EVRA) 150-20 mcg/[address] 1 Patch onto the skin every 7 days. Apply new patch on same day of week for 3 weeks. No patch week 4. ??? glucagon (GLUCAGON EMERGENCY) 1 mg injection Use as directed. 2 Each 6 Patient Active Problem List Diagnoses ??? Type 1 diabetes mellitus ??? Smoker ??? Pure hypercholesterolemia Pt is here for assessment of glycemic control. Per pt her current insulin doses: lantus 20 units amand 12 units pm and novolog 1:6 carbs and 1:50 isf > 200. She was ill recently and called clinic with positive ketones. She was able to manage this at home. Blood glucoses have normalized now that she is recovered. Fasting blood sugars are 78-83 for the last 3 days. Daytime readings in mid-high 100 range for the last 3 days. She is still hoping to get sensor but may have issues with insurance coverage. She states that she is not interested in pump therapy at this point. I have discussed that illness or stress will cause increased insulin resistance. She is scheduled to see Dr Manriquez in October. Assessment: Improving glycemic control. I think that she might benefit from an interim visit with one of our nurse practitioners and she agrees with this. Plan: Continue same lantus for now 20 units am and 12 units pm but if mornings get any lower start backing off on night dose. If daytime sugars start getting low you will need to back off on morning dose When you are ill or under a lot of stress you need extra insulin. You may need up to 20% more both lantus and novolog Return to see nurse practitioner in 45 days. i will contact dexcom about sensor You will call clinic with any issues Sick Day Plan Why worry about sick days? High blood sugars can occur when your body is sick or stressed. This is true even if you are not eating. Examples of sick day: 1. Illness: such as a cold, flu, nausea, vomiting or diarrhea 2. Infection: such as in the skin, foot, UTI, lung 3. Injury: such as a sprain, broken bone 4. Surgery 5. Major emotional stress Sick Day Plan Follow the steps below when you are sick to help you stay out of the hospital. 1. Take your diabetes medication Even if you cannot eat your usual meals. If unsure call your health provider. 2. Check blood sugar before breakfast, lunch, supper and bedtime If you have type 1 diabetes, check urine ketones when blood sugar is 250 or higher. 3. If you can eat your meals: Every 1-2 hours drink 6-8 ounces of fluid that are sugar-free and caffeine free such as: Water Broth Decaffeinated Tea Diet frederick erick 4. If you are unable to eat your usual meal plan: Replace the carbohydrates (sugar and starches) inyour meal plan. Eat or drink one to two of the items below every 1-2 hours (each item is equal to 15 grams of carbohydrate): Applesauce Juice Regular Jell-O Fruited yogurt Regular pudding Gatorade Chicken soup Sarepta ?? cup ?? cup ?? cup ?? cup ?? cup ?? cup 1 cup 1 toast Hot or cold cereal Broth / consumme Eggnog Ice cream Milkshake Sherbet Popsicle Honey ?? cup ?? cup ?? cup ?? cup ?? cup ?? cup 1 pop 1 Tbsp. 5. Rest 6. Call your health provider if: Vomiting or diarrhea that persists for more than 4 hours Blood sugar values are 250 or higher on 2 occasions in one day If you have a temperature over 101 degrees If you have moderate or large ketones No barriers to education noted. Pt verbalized understanding. Time spent with patient: 30 Minutes. Icd= 250.03 I was supervised by Dr Manriquez documented in this encounter Plan of Treatment Not on file documented as of this encounter Visit Diagnoses Diagnosis Type I (juvenile type) diabetes mellitus without mention of complication, uncontrolled- Primary documented in this encounter Discontinued Medications Medication Sig Discontinue Reason Start Date End Da te glucagon (GLUCAGON EMERGENCY) 1 mg injection Use as directed. Reorder 07/07/201107/07 documented as of this encounter Care Teams Manager Home Improvement Relationship Specialty Start Date End Date Huseyin Zazueta MD [address] [place] [address] PCP - General 07/16/09 documented as of this encounter
--- OUTSIDE RECORDS SUMMARY | 2024-05-02 15:22 | XMS_ITS | Encounter Summary ---
Author Organization [facility] Address [address] [place] [address] Care Team Providers Care Soil Sort Worker Name Role Phone Huseyin Zazueta MD Primary Care Provider [phone] Reason for Visit * Reason Onset Date Comments Other Medications Refill 02/27/2013 out of novolo g Encounter Details Date Type Department Care Team (Late st Contact Info) Description 02/27/2013 Refill [facility] Endocrinology - [address] [phone] Carlin Manriquez MD [address] [place] [phone] Other; Medications Refill (out of novolog) Social History Tobacco Use Types Packs/Day Years [...] Refills Last Filled Start Date End Date lancets (ONE TOUCH DELICA) 33 gauge Misc Use 15 lancet as directed daily. 1300 Each 3 02/27/2013 4 insulin glargine (LANTUS SOLOSTAR) 100 unit/mL (3 mL) injection pen Inject into 30 units daily. Titrate up during . Up to 50 units daily. 45 mL 3 02/27/2013 4 insulin pen needles 31G x 5/16 (BD INSULIN PEN NEEDLE UF SHORT) Use 5 pen needles as directed daily. 500 Each 3 02/27/2013 4 insulin aspart (NOVOLOG FLEXPEN) 100 unit/mL injectable pen Inject into skin with meals up to 50 units daily. Titrating up during . 45 mL 3 02/27/2013 4 documented in this encounter Miscellaneous Notes * Telephone Encounter - Teena Santos - 02/27/2013 1024 EDT Pt will be out of her novolog tomorrow, for her BD needles-uses 5 to 6 daily, and for her delica lancets tests 15 x daily, pls send all scripts to [facility] documented in this encounter Plan of Treatment Not on file documented as of this encounter Visit Diagnoses Not on filedocumented in this encounter Discontinued Medications Medication Sig Discontinue Reason Start Date End Da te lancets (ONE TOUCH SURESOFT LANCING DEV) Test glucose 12 times daily: ICD-9 648.03 01/26/2013 02/27/2013 insulin pen needles 31G x 5/16 Use 5 daily. Reorder 12/29/2011 02/27/2013 insulin glargine (LANTUS SOLOSTAR PEN) 100 unit/mL (3 mL) injection pen Inject into the skin 2 times daily. 18 units in am and 12 units in pm Reorder 01/14/2012 02/27/2013 documented as of this encounter Care Teams Soil Sort Worker Relationship Specialty Start Date End Date Huseyin Zazueta MD [address] [place] [address] PCP - General 07/16/09 documented as of this encounter
--- OUTSIDE RECORDS SUMMARY | 2024-05-02 15:22 | XMS_ITS | Encounter Summary ---
Author Organization [facility] Address [address] [place] [address] Care Team Providers Care Reservoir Engineering Manager Name Role Phone Huseyin Zazueta MD Primary Care Provider [phone] Reason for Visit * Reason Onset Date Comments Appointment Related 01/22/2013 Encounter Details Date Type Department Care Team (Late st Contact Info) Description 01/22/2013 Telephone [facility] Endocrinology - [address] [address] Carlin Manriquez MD [address] [place] [address], [address] [phone] Appointment Related Social History Tobacco Use Types [...] encounter Miscellaneous Notes * Telephone Encounter - Lisa Kebede - 01/22/2013 1551 EDT Pt returning Rhondas call regarding appt on Tuesday at [address] Manriquez. Pt states that is fine. documented in this encounter Plan of Treatment Not on file documented as of this encounter Visit Diagnoses Not on filedocumented in this encounter Care Teams Reservoir Engineering Manager Relationship Specialty Start Date End Date Huseyin Zazueta MD [address] [place] [id number] PCP - General 07/16/09 documented as of this encounter
--- OUTSIDE RECORDS SUMMARY | 2024-05-02 15:22 | XMS_ITS | Encounter Summary ---
Author Organization [facility] Address [address] [place] [address] Care Team Providers Care Salesperson Women'S Hats Name Role Phone Huseyin Zazueta MD Primary Care Provider [phone] Encounter Details Date Type Department Care Team (Late st Contact Info) Description 02/13/2013 Documentation Visit [facility] Obstetrics & Midwifery - [facility] [address] [place], [place] [phone] Magdalena Arzate MD [address] [facility], [address] [place] [address] Social History Tobacco Use Types [...] as of this encounter Progress Notes * Jeannette Gaming - 02/13/2013 1147 EDT Added episode and ob hx for jorge 02/15/13. Jag documented in this encounter Plan of Treatment Not on file documented as of this encounter Visit Diagnoses Not on filedocumented in this encounter Care Teams Salesperson Women'S Hats Relationship Specialty Start Date End Date Huseyin Zazueta MD [address] [place] [address] PCP - General 07/16/09 documented as of this encounter
--- OUTSIDE RECORDS SUMMARY | 2024-05-02 15:22 | XMS_ITS | Encounter Summary ---
Author Organization [facility] Address [address] [place] [address] Care Team Providers Care Hot Metal Crane Operator Name Role Phone Huseyin Zazueta MD Primary Care Provider [phone] Encounter Details Date Type Department Care Team (Late st Contact Info) Description 02/15/2013 15:53 EDT - 02/15/2013 23:59 EDT Hospital Encounter [address] [address] Unknown, Provider, Magdalena Oconnell MD [address] [place] [address], [address] [place] [phone] Discharge Disposition: Auto Discharge Social History Tobacco [...] ICD-9: 648.03 400 Each 11 01/26/2013 4 glucagon (GLUCAGON EMERGENCY) 1 mg injection Inject 1 mg into the skin once for 1 dose. 2 Each 6 07/07/2012 3 glucagon (GLUCAGON EMERGENCY) 1 mg injection Use as directed. 2 Each 6 07/07/2012 3 insulin aspart (NOVOLOG) 100 unit/mL CartridgeIndicatio ns:Type 1 diabetes mellitus ([facility]) Uses 8:1 CHO ratio Usually 5-7 units/meals 2 Box 8 12/05/2012 3 insulin glargine (LANTUS SOLOSTAR PEN) 100 unit/mL (3 mL) injection pen Inject into the skin 2 times daily. 18 units in am and 12 units in pm 5 Syringe 11 01/14/2012 3 insulin pen needles 31G x 5/16 Use 5 daily. 500 Each 3 12/29/2011 3 ketone urine reagent strip (KETOSTIX)Indicati ons:Type I (juvenile type) diabetes mellitus without mention of complication, not stated as uncontrolled Use 1 Strip as directed as needed. if blood glucose is greater than 250 (for 2 consecutive readings), if ill, and/or if vomiting. 50 Each 5 05/09/2012 4 lancets (ONE TOUCH SURESOFT LANCING DEV) Test glucose 12 times daily: ICD-9 648.03 400 Each 11 01/26/2013 3 norelgestromin-eth inyl estradiol (ORTHO EVRA) 150-20 mcg/24 [...] on filedocumented in this encounter Care Teams Hot Metal Crane Operator Relationship Specialty Start Date End Date Huseyin Zazueta MD [address] [place] [address] PCP - General 07/16/09 documented as of this encounter
--- OUTSIDE RECORDS SUMMARY | 2024-05-02 15:22 | XMS_ITS | Encounter Summary ---
Author Organization [facility] Address [address] [place] [address] Care Team Providers Care Pipe Inspector Name Role Phone Huseyin Zazueta MD Primary Care Provider [phone] Reason for Visit * Reason Onset Date Comments DME 07/17/2012 Encounter Details Date Type Department Care Team (Late st Contact Info) Description 07/17/2012 Telephone [facility] Endocrinology - [address] [address] Raffaele Nichole RN CDE DME Social History Tobacco Use Types Packs/Day [...] Telephone Encounter - Raffaele Nichole RN - 07/17/2012 0929 EST email from pt: Khurram Medellin, I wanted to follow up with you to see if you were able to find out anything about the Dexcom CGM for me. I haven???t heard from anyone since our appointment on July 07. Thank you, Carolyn Portillo This is my reply: Good morning, I did send an email to [employer] after we met. I will email them again today and ask them to contact you. Thanks,raffaele documented in this encounter Plan of Treatment Not on file documented as of this encounter Visit Diagnoses Not on filedocumented in this encounter Care Teams Pipe Inspector Relationship Specialty Start Date End Date Huseyin Zazueta MD [address] [place] [address] PCP - General 07/16/09 documented as of this encounter
--- OUTSIDE RECORDS SUMMARY | 2024-05-02 15:22 | XMS_ITS | Encounter Summary ---
Author Organization [facility] Address [address] [place] [address] Care Team Providers Care Slag Wheeler Name Role Phone Huseyin Zazueta MD Primary Care Provider [phone] Reason for Visit * Reason Onset Date Comments Diabetes 08/11/2012 Encounter Details Date Type Department Care Team (Late st Contact Info) Description 08/11/2012 Telephone [facility] Endocrinology - [address] [phone] Carlin Manriquez MD [address] [place] [phone] Diabetes Social History Tobacco Use Types Packs/Day [...] Telephone Encounter - Lacie Nichole RN - 08/29/2012 0911 EDT email from pt from 08/28 that i retrieved today: Khurram Medellin, Last week, I began a home workout routine and have done it every day. Today, I am spilling moderate-high levels of ketones but my b/s has been under 200 for the most part. Are there any concerns withthis? It is my understanding that as long as blood sugars aren???t too high, there isn???t a real danger for acidosis? I called her as soon as i saw the message. She states that she is feeling fine and that as soon as she received my out of office message she contacted Dr Manriquez who reassured her. * Telephone Encounter - Sonali Hooks RN - 08/11/2012 1122 EST We did receive the paper work. Will have Dr. Manriquez sign this on Tuesday when she is back in the office. * Telephone Encounter - Seema Cooley - 08/11/2012 1050 EST Faxed over detailed written order for DGM, needs to be filled out & signed & dated. Checking to see if received. documented in this encounter Plan of Treatment Not on file documented as of this encounter Visit Diagnoses Not on filedocumented in this encounter Care Teams Slag Wheeler Relationship Specialty Start Date End Date Huseyin Zazueta MD [address] [place] [address] PCP - General 07/16/09 documented as of this encounter
--- OUTSIDE RECORDS SUMMARY | 2024-05-02 15:22 | XMS_ITS | Encounter Summary ---
Author Organization [facility] Address [address] [place] [address] Care Team Providers Care Ladle Car Operator Name Role Phone Huseyin Zazueta MD Primary Care Provider [phone] Encounter Details Date Type Department Care Team (Late st Contact Info) Description 08/18/2012 Orders Only [facility] Endocrinology - [address] [address] Carlin Manriquez MD [address] [address] [place] [address] Type I (juvenile type) diabetes mellitus without [...] Associated Diagnosis Comments POCT HEMOGLOBIN A1C Routine 08/18/2012 1 5:12 EDT Type I (juvenile type) diabetes mellitus without mention of complication, uncontrolled documented in this encounter Results * (ABNORMAL) POCT HEMOGLOBIN A1C (08/18/2012 15:12 EDT) Hemoglobin A1c, POC 9.3(A) <=5.7 POINT OF CARE 08/18/2012 15:1 2 EDT us Carlin Manriquez MD POINT OF CARE TEST ORDERABLES Final Result POINT OF CARE documented in this encounter Visit Diagnoses Diagnosis Type I (juvenile type) diabetes mellitus without mention of complication, uncontrolled- Primary documented in this encounter Care Teams Ladle Car Operator Relationship Specialty Start Date End Date Huseyin Zazueta MD [address] [place] [address] PCP - General 07/16/09 documented as of this encounter
--- OUTSIDE RECORDS SUMMARY | 2024-05-02 15:22 | XMS_ITS | Encounter Summary ---
Author Organization [facility] Address [address] [place] [address] Care Team Providers Care Communications Tower Climber Name Role Phone Huseyin Zazueta MD Primary Care Provider [phone] Reason for Visit * Reason Comments Labs Only Encounter Details Date Type Department Care Team (Latest Contact Info) Description 11/22/2012 11:45 EDT Procedure visit [facility] Endocrinology - [address] [phone] Unknown, Provider, Phlebotomy, [facility] Type I (juvenile type) diabetes mellitus without mention of complication, uncontrolled; Pure hypercholesterolemia Social History Tobacco Use Types [...] encounter Progress Notes * Rochelle Giles - 11/22/2012 1157 EDT Blood sample drawn from vein for testing at the order of Dr. Manriquez ???I was supervised by Dr. Desir who was in the suite and readily available.?? documented in this encounter Plan of Treatment Not on file documented as of this encounter Procedures Procedure Name Priority Date/Time Associated Diagnosis Comments HEMOGLOBIN A1C Routine 11/22/2012 11:55 EDT Type I (juvenile type) diabetes mellitus without mention of complication, uncontrolled Pure hypercholesterolemia LIPID PROFILE (INCLUDES CHOLESTEROL, TRIGLYCERIDES, HDL, LDL) Routine 11/22/2012 11:55 EDT Type I (juvenile type) diabetes mellitus without mention of complication, uncontrolled Pure hypercholesterolemia COMPREHENSIVE METABOLIC PANEL (CMP) Routine 11/22/2012 11:55 EDT Type I (juvenile type) diabetes mellitus without mention of complication, uncontrolled Pure hypercholesterolemia URINE PSITCTP-AL-BGAJPSTC NE RATIO (ACR) Routine 11/22/2012 11:49 EDT Type I (juvenile type) diabetes mellitus without mention of complication, uncontrolled Pure hypercholesterolemia documented in this encounter Results * HEMOGLOBIN A1C (11/22/2012 11:55 EDT) Hemoglobin A1C 8.6 % RASHIDA LEBRON Comment: Reference Range: <5.7% Normal 5.7-6.4% Increased risk for diabetes =>6.5% Diagnostic for diabetes (if confirmed) The A1c goal for non adults in general is <7%. The A1c goal for selected patients may be significantly lower than 7% if this can be achieved without significant hypoglycemia or other adverse effects of treatment. Est Avg Glucose 200 mg/dl KT LEBRON Comment: eAG represents the A1c result expressed as average glucose in mg/dl. Blood specimen (specimen) 11/22/2012 11:55 EDT 11/22/2012 15:34 EDT us Carlin Manriquez MD CHEMISTRY & BLOOD GAS ORDERABL ES Final Result [facility] [address] [place] [address] * (ABNORMAL) COMPREHENSIVE METABOLIC PANEL (CMP) (11/22/2012 11:55 EDT) Potassium 4.1 3.5 - 5.0 mEq/L [facility] Sodium 138 136 - 145 mEq/L [facility] Chloride 104 96 - 110 mEq/L [facility] CO2 25 24 - 32 mEq/L [facility] Total Alkaline Phosphatase 56 38 - 126 U/L [facility] Bilirubin, Total <0.5 0.2 - 1.3 mg/dl [facility] AST 16 15 - 46 U/L [facility] ALT 20 9 - 52 U/L [facility] Albumin 4.1 3.4 - 4.9 g/dl [facility] Total Protein 7.1 6.5 - 8.3 g/dl [facility] Creatinine 0.55 0.52 - 1.04 mg/dl [facility] GFR, Calculated >60 >60 ml/min/1.7 3m2 [facility] BUN 8(L) 10 - 26 mg/dl [facility] Calcium 9.6 8.5 - 10.5 mg/dl [facility] Calculated Calcium 9.9 8.5 - 10.5 mg/dl [facility] Glucose, Serum 215(H) 70 - 100 mg/dl [facility] Fasting? Unknown [facility] Blood specimen (specimen) 11/22/2012 11:55 EDT 11/22/2012 15:34 EDT us Carlin Manriquez MD CHEMISTRY & BLOOD GAS ORDERABL ES Final Result [facility] [address] [place] [address] * LIPID PROFILE (INCLUDES CHOLESTEROL, TRIGLYCERIDES, HDL, LDL) (11/22/2012 11:55 EDT) Cholesterol 198 mg/dl [facility] Comment: Desirable:<200 Borderline High:200-239 High:>um=640 Triglycerides 66 mg/dl [facility] Comment: Normal:<150 Borderline High:150-199 High:200-499 Very High:>gu=945 HDL 59 mg/dl [facility] Comment: Low:<40 Normal:40-60 Desirable: >60 LDL, Calculated 126 mg/dl [facility] Comment: Optimal:<100 Near Optimal:100-129 Borderline High:130-159 High:160-189 Very High:>nr=047 Chol/HDL Ratio 3.4 [facility] Fasting? Unknown [facility] Blood specimen (specimen) 11/22/2012 11:55 EDT 11/22/2012 15:34 EDT Carlin Manriquez MD CHEMISTRY & BLOOD GAS ORDERABL ES Final Result Performing Organization Address [facility] de Phone Number [facility] [address] [place] [address] * ALBUMIN, URINE (11/22/2012 11:49 EDT) Creatinine, Urn [place] 8.3 mg/dl [facility] Ur Albumin mg/dl <0.2 mg/dl [facility] Ur Alb ug/mg Crea Unable to calculate ug/mg Crea result. ug/mg Crea [facility] Comment: Normal: <30 ug/mg creat High: 30-300 ug/mg creat Very high and nephrotic: >300 ug/mg creat Urine specimen (specimen) URINE / Unknown 11/22/2012 11:49 EDT 11/22/2012 15:35 EDT Carlin Manriquez MD CHEMISTRY & BLOOD GAS ORDERABL ES Final Result Performing Organization Address [facility] de Phone Number [facility] [address] [place] [address] documented in this encounter Visit Diagnoses Diagnosis Type I (juvenile type) diabetes mellitus without mention of complication, uncontrolled Pure hypercholesterolemia documented in this encounter Care Teams Communications Tower Climber Relationship Specialty Start Date End Date Huseyin Zazueta MD [address] [place] [address] PCP - General 07/16/09 documented as of this encounter
--- OUTSIDE RECORDS SUMMARY | 2024-05-02 15:22 | XMS_ITS | Encounter Summary ---
Author Organization [facility] Address [address] [place] [address] Care Team Providers Care Spot Checker Name Role Phone Huseyin Zazueta MD Primary Care Provider [phone] Reason for Visit * Reason Onset Date Comments DME 08/11/2012 Encounter Details Date Type Department Care Team (Late st Contact Info) Description 08/11/2012 Telephone [facility] Endocrinology - [address] [address] Raffaele Nichole RN CDE DME Social History [...] Telephone Encounter - Raffaele Nichole RN - 08/11/2012 3765 EST email from pt: I think I'll be ok doing it. I have watched all of the videos and feel pretty confident that all will go well. Once I get it though, I will let you know if I change my mind. This is my reply: Ok, let us know if you need any assistance. Just remember that you should never take insulin based on a sensor reading and must always confirm with fingerstick. The sensor may not always be accurate. raffaele Hauser * Telephone Encounter - Raffaele Nichole RN - 08/11/2012 1011 EST email from pt: Khurram Medellin, I just wanted to let you know that my new Dexcom will be in my possession on Tuesday. Thank you!! This is my reply: Absolutely wonderful. Would you like to come in next week for training? raffaele documented in this encounter Plan of Treatment Not on file documented as of this encounter Visit Diagnoses Not on filedocumented in this encounter Care Teams Spot Checker Relationship Specialty Start Date End Date Huseyin Zazueta MD [address] [place] [address] PCP - General 07/16/09 documented as of this encounter
--- OUTSIDE RECORDS SUMMARY | 2024-05-02 15:22 | XMS_ITS | Encounter Summary ---
Author Organization [facility] Address [address] [place] [address] Care Team Providers Care Wireless Development Manager Name Role Phone Huseyin Zazueta MD Primary Care Provider [phone] Reason for Visit * Reason Onset Date Comments Diabetes 02/12/2013 Encounter Details Date Type Department Care Team (Late st Contact Info) Description 02/12/2013 Telephone [facility] Endocrinology - [address] [phone] Raffaele Nichole RN CDE Diabetes Social History Tobacco [...] Telephone Encounter - Raffaele Nichole RN - 02/12/2013 1704 EDT email from pt: Date Time Reading 01/29/2013 6:22 AM 232 01/29/2013 6:51 AM 244 01/29/2013 7:10 AM 218 01/29/2013 8:09 123 01/29/2013 8:41 AM 91 01/29/2013 9:26 AM 61 01/29/2013 10:43 AM 98 01/29/2013 11:37 AM 78 01/29/2013 1:07 PM 63 01/29/2013 2:01 PM 190 01/29/2013 3:13 PM 122 01/29/2013 3:52 PM 100 01/29/2013 5:18 PM 80 01/29/2013 5:59 PM 97 01/29/2013 7:25 PM 213 01/29/2013 8:16 PM 246 01/29/2013 9:04 PM 215 01/30/2013 5:51 AM 82 01/30/2013 6:46 AM 120 01/30/2013 7:02 AM 113 01/30/2013 7:20 AM 100 01/30/2013 8:14 AM 133 01/30/2013 9:23 AM 61 01/30/2013 9:58 AM 39 01/30/2013 10:28 AM 176 01/30/2013 11:01 AM 159 01/30/2013 12:09 PM 156 01/30/2013 1:24 PM 120 01/30/2013 1:50 PM 119 01/30/2013 2:58 PM 109 01/30/2013 3:56 PM 60 01/30/2013 4:08 PM 85 01/30/2013 5:20 PM 62 01/30/2013 5:38 PM 84 01/30/2013 6:32 PM 79 01/30/2013 7:18 PM 47 01/30/2013 9:08 PM 281 had a low overnight that I didn't test for, just ate and went back to bed :( 01/31/2013 6:04 AM 213 01/31/2013 7:23 PM 120 01/31/2013 9:21 AM 83 01/31/2013 10:51 AM 73 01/31/2013 11:28 AM 59 01/31/2013 12:42 PM 59 01/31/2013 1:19 PM 86 01/31/2013 1:47 PM 95 01/31/2013 2:59 PM 85 01/31/2013 3:52 PM 71 02/01/2013 6:17 AM 69 02/01/2013 8:12 AM 172 02/01/2013 9:06 AM 137 02/01/2013 10:14 AM 136 02/01/2013 11:42 AM 83 02/01/2013 2:47 PM 125 02/01/2013 3:17 PM 121 02/01/2013 4:53 PM 121 02/01/2013 6:07 PM 143 02/01/2013 7:31 PM 194 02/01/2013 9:20 PM 164 02/02/2013 5:57 AM 243 02/02/2013 7:19 AM 229 02/02/2013 9:27 AM 223 02/02/2013 11:02 AM 114 02/02/2013 12:09 PM 60 02/02/2013 12:33 PM 80 02/02/2013 1:39 PM 162 02/02/2013 2:53 PM 103 02/02/2013 4:21 PM 122 02/02/2013 6:08 PM 164 02/02/2013 7:23 PM 104 02/02/2013 8:26 PM 120 02/02/2013 9:08 PM 110 02/03/2013 5:53 AM 70 02/03/2013 9:36 AM 50 02/03/2013 10:59 AM 194 02/03/2013 11:38 AM 227 02/03/2013 12:59 AM 44 02/03/2013 1:15 PM 159 02/03/2013 2:00 PM 84 02/03/2013 3:01 PM 55 02/03/2013 3:42 PM 116 02/03/2013 6:43 PM 223 02/03/2013 9:04 PM 78 02/03/2013 10:03 PM 94 02/04/2013 5:30 AM 82 02/04/2013 8:50 AM 139 02/04/2013 10:48 AM 95 02/04/2013 11:33 AM 70 02/04/2013 12:02 PM 192 02/04/2013 12:22 PM 226 02/04/2013 1:42 PM 115 02/04/2013 1:54 PM 111 02/04/2013 2:20 PM 99 02/04/2013 3:56 PM 104 02/04/2013 6:10 PM 161 02/04/2013 7:48 PM 84 02/04/2013 8:50 PM 112 02/05/2013 6:20 AM 107 02/05/2013 7:33 AM 191 02/05/2013 9:18 AM 99 02/05/2013 9:30 AM 107 02/05/2013 10:38 AM 73 02/05/2013 12:06 PM 117 02/05/2013 2:23 PM 152 02/05/2013 2:44 PM 205 02/05/2013 3:58 PM 104 02/05/2013 5:06 PM 88 02/05/2013 6:28 PM 61 02/05/2013 8:17 PM 113 02/06/2013 4:50 AM 95 02/06/2013 7:23 AM 104 02/06/2013 9:17 AM 98 02/06/2013 10:44 AM 85 02/06/2013 2:26 PM 170 02/06/2013 7:06 PM 82 02/06/2013 8:21 PM 205 02/06/2013 10:11 PM 108 123.87 average Carolyn Portillo This is my reply: Khurram Vides, just returning from vacation. Hope you are feeling well. I am going to attach a blood sugar grid to this email. It is much easier to assess your blood sugars in this format. Can you just write down the last 3 days in this form and I will forward it right over to Dr Manriquez for review. Thanks,raffaele This is pt's reply: I am coming in on so I will skip my numbers this week and will use the attachment that yousent me for any future numbers that I send you i did call pt and asked how the last few days are going. She ran in 200s yesterday, corrected and had a low of 36 This morning fbg was 143, up tp 168 , 143,.125, 178 during day. Pt pt current lantus is 25 units and carb ratio is 1:8. States that she does not have a formal correction ratio. Plan: Increase lantus to 27 units, increase carb ratio to 1:7 and email some readings tomorrow mid morning. Pt verbalized understanding. documented in this encounter Plan of Treatment Not on file documented as of this encounter Visit Diagnoses Not on filedocumented in this encounter Care Teams Wireless Development Manager Relationship Specialty Start Date End Date Huseyin Zazueta MD [address] [place] [address] PCP - General 07/16/09 documented as of this encounter
--- OUTSIDE RECORDS SUMMARY | 2024-05-02 15:22 | XMS_ITS | Encounter Summary ---
Author Organization [facility] Address [address] [place] [address] Care Team Providers Care Clinical Marketing Manager Name Role Phone Huseyin Zazueta MD Primary Care Provider [phone] Reason for Visit * Reason Onset Date Comments Pharmacy 12/05/2012 Encounter Details Date Type Department Care Team (Late st Contact Info) Description 12/05/2012 Telephone [facility] Endocrinology - [facility] [address] [place] [address] Lorraine Figueroa NP [address] [facility] [address] [place] [address] Pharmacy Social History Tobacco Use Types Packs/Day [...] encounter Miscellaneous Notes * Telephone Encounter - Solange Perez - 12/05/2012 1611 EDT Clarified please send cartridge of novolog NOT flexpen. * Telephone Encounter - Seema Cooley - 12/05/2012 1310 EDT Pharmacy needs clarification on Novolog script. documented in this encounter Plan of Treatment Not on file documented as of this encounter Visit Diagnoses Not on filedocumented in this encounter Care Teams Clinical Marketing Manager Relationship Specialty Start Date End Date Huseyin Zazueta MD [address] [place] [address] PCP - General 07/16/09 documented as of this encounter
--- OUTSIDE RECORDS SUMMARY | 2024-05-02 15:22 | XMS_ITS | Encounter Summary ---
Author Organization [facility] Address [address] [place] [address] Care Team Providers Care Garment Alteration Examiner Name Role Phone Huseyin Zazueta MD Primary Care Provider [phone] Reason for Visit * Reason Onset Date Comments Results 10/04/2012 Encounter Details Date Type Department Care Team (Late st Contact Info) Description 10/04/2012 Orders Only [facility] Endocrinology - [address] [address] Carlin Manriquez MD [address] [place] [address], [address] [phone] Social History Tobacco Use Types Packs/Day Years [...] Procedure Name Priority Date/Time Associated Diagnosis Comments DM FOOT EXAM Routine 05/09/2012 DM EYE EXAM Routine 11/24/2011 documented in this encounter Results * DM FOOT EXAM (05/09/2012) DM Foot Exam JUAN Morton [facility] DM Foot Exam, External [facility] us Historical Provider PROCEDURE/MINOR SURGICAL ORDERABLES Final Result [facility] * DM EYE EXAM (11/24/2011) DM Eye Exam EXTERNAL FACILITY DM Eye Exam, External EXTERNAL FACILITY Historical Provider PROCEDURE/MINOR SURGICAL ORDERABLES Final Result [facility]ILITY documented in this encounter Visit Diagnoses Not on filedocumented in this encounter Care Teams Garment Alteration Examiner Relationship Specialty Start Date End Date Huseyin Zazueta MD [address] [place] [address] PCP - General 07/16/09 documented as of this encounter
--- OUTSIDE RECORDS SUMMARY | 2024-05-02 15:22 | XMS_ITS | Encounter Summary ---
Author Organization [facility] Address [address] [place] [address] Care Team Providers Care Manager Strategic Partnerships Name Role Phone Huseyin Zazueta MD Primary Care Provider [phone] Encounter Details Date Type Department Care Team (Late st Contact Info) Description 02/16/2013 Orders Only [facility] [phone] Magdalena Arzate MD [address] [facility], [address] [place] [address] Unspecified high-risk (Primary Dx) Social History Tobacco [...] high-risk - Primary documented in this encounter Orders Lab Orders Without Results Count Last Ordered D ate First Ordered Date CHLAMYDIA/GC AMPLIFIED 1 02/16/2013 documented in this encounter Care Teams Manager Strategic Partnerships Relationship Specialty Start Date End Date Huseyin Zazueta MD [address] [place] [address] PCP - General 07/16/09 documented as of this encounter
--- OUTSIDE RECORDS SUMMARY | 2024-05-02 15:22 | XMS_ITS | Encounter Summary ---
Author Organization [facility] Address [address] [place] [address] Care Team Providers Care Geothermal Sheet Metal Worker Name Role Phone Huseyin Zazueta MD Primary Care Provider [phone] Encounter Details Date Type Department Care Team (Late st Contact Info) Description 03/02/2013 Phlebotomy Only [facility] [address] [place] [address] World Designer, Outpatient Diabetes in ; Unspecified high-risk ; Type I (juvenile type) diabetes mellitus without [...] Priority Date/Time Associated Diagnosis Comments FRUCTOSAMINE Routine 03/02/2013 9:47 EDT Type I (juvenile type) diabetes mellitus without mention of complication, uncontrolled ALT Routine 03/02/2013 9:46 EDT Diabetes in AST Routine 03/02/2013 9:46 EDT Diabetes in CREATININE Routine 03/02/2013 9:46 EDT Diabetes in documented in this encounter Results * FRUCTOSAMINE (03/02/2013 9:47 EDT) Fructosamine, S 276 200 - 285 mcmol/L [facility] Comment: Performed by: [facility], [address], [place] [address], Paper Cone Grader: Sonali Navarro, Ph.D. Blood specimen (specimen) 03/02/2013 9:47 EDT 03/02/2013 10:32 EDT us Carlin Manriquez MD CHEMISTRY & BLOOD GAS ORDERABL ES Final Result Performing Organization Address [facility] Co de Phone Number [facility] [address] [place] [address] * (ABNORMAL) CREATININE (03/02/2013 9:46 EDT) Creatinine 0.38(L) 0.52 - 1.04 mg/dl [facility] GFR, Calculated >60 >60 ml/min/1.7 3m2 [facility] Blood specimen (specimen) 03/02/2013 9:46 EDT 03/02/2013 10:30 EDT us Magdalena Arzate MD CHEMISTRY & BLOOD GAS ORDERABLES Final Result Performing Organization Address [facility]/ZIP Co de Phone Number [facility] [address] [place] [address] * AST (03/02/2013 9:46 EDT) AST 15 15 - 46 U/L [facility] Blood specimen (specimen) 03/02/2013 9:46 EDT 03/02/2013 10:30 EDT us Magdalena Arzate MD CHEMISTRY & BLOOD GAS ORDERABLES Final Result Performing Organization Address [facility] Co de Phone Number [facility] [address] [place] [address] * ALT (03/02/2013 9:46 EDT) ALT 22 9 - 52 U/L [facility] Blood specimen (specimen) 03/02/2013 9:46 EDT 03/02/2013 10:30 EDT us Magdalena Arzate MD CHEMISTRY & BLOOD GAS ORDERABLES Final Result [facility] [address] [place] [address] documented in this encounter Visit Diagnoses Diagnosis Diabetes in 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
--- OUTSIDE RECORDS SUMMARY | 2024-05-02 15:22 | XMS_ITS | Encounter Summary ---
Author Organization [facility] Address [address] [place] [address] Care Team Providers Care Electrical Machine Builder Name Role Phone Huseyin Zazueta MD Primary Care Provider [phone] Reason for Referral * Consult (Routine/Next Available) - Closed Specialty Diagnoses / Procedures Referred By Neva zacarias Referred To Contact Pain Medicine Diagnoses Musculoskeletal pain Hamlet Bonner MD [facility] Interventional Pain [address] [place] [address] Phone: tel: fax: Referral ID Status Reason Start Date Expiration Date V isits Requested Visits Authorized [id number] Closed Specialty Services Required 05/19/2012 1 1 Question Answer Reason for Request: Musculoskeletal pain, right subcostal Comments 100% improvement with trigger point injection. Please re-inject with steroid Reason for Visit * Reason Comments New Patient Visit RUQ Encounter Details Date Type Department Care Team (Latest Contact Info) Description 05/19/2012 8:00 EST Office Visit [facility] Gastroenterology - Main [address] [address] Hamlet Bonner MD Musculoskeletal pain (Primary Dx) Social History Tobacco Use Types [...] Sign Reading Time Taken Comments Blood Pressure 134/95 05/19/2012 0812 EST Pulse 75 05/19/2012 0812 EST Temperature - - Respiratory Rate - - Oxygen Saturation - - Inhaled Oxygen Concentration - - Weight 53.5 kg (118 lb) 05/19/2012 0812 EST Height - - Body Mass Index 22.3 05/09/2012 0845 EST documented in this encounter Progress Notes * Hamlet Bonner MD - 05/19/2012 1315 EST Carolyn Portillo is a 31 y.o. year-old female being seen in consultation at Dr. Zazueta's request forRUQ abdominal pain. The description and physical examination are consistent with musculoskeletal pain. A trigger point injection was performed after informed consent was obtained. Symptoms were entirely resolved after injection, again, consistent with a musculoskeletal etiology. Current Outpatient Prescriptions Medication Sig Dispense Refill [...] injection Use as directed. 2 Each 6 Allergies Allergen Reactions ??? Levemir (Insulin Detemir) Swelling and Other (See Comments) Swelling and bruising and itching at site of injection BP 134/95 Pulse 75 Wt 53.524 kg (118 lb) Physical exam: HEENT: Anicteric, no jaundice, no lymphadenopathy. Lungs: Clear. Cardiovascular: Normal rate and rhythm, no murmurs, gallops, or rubs. Abdomen: normal: soft, non-tender, non-distended, no fluid wave, + bowel sounds, no organosplenomegaly and moderate tenderness in the RUQ with deep palpation at the costal margin c/w intercostal neualgia. A Sterile alcohol prep was used prior to injection of 5 cc of a 1:1 mixture of Bupivacaine 0.5% and Lidocaine 1%. Repeat exam was unremarkable without tenderness. Extremities: Without cyanosis, clubbing, or edema. Labs: No results found for this basename: HGB, HCT, MCV, PLT, WBC, PROT Bilirubin, Total Date Value Range Status 07/15/2011 0.6 0.2-1.3 (mg/dl) Final 09/28/2010 <0.5 0.2-1.3 (mg/dl) Final Alkaline Phosphatase Date Value Range Status 07/17/2009 103 38-126 (U/L) Final Slightly lipemic Total Alkaline Phosphatase Date Value Range Status 07/15/2011 69 38-126 (U/L) Final 09/28/2010 67 38-126 (U/L) Final AST Date Value Range Status 07/15/2011 14* 15-46 (U/L) Final 09/28/2010 17 15-46 (U/L) Final 07/17/2009 25 15-46 (U/L) Final Slightly lipemic ALT Date Value Range Status 07/15/2011 22 9-52 (U/L) Final 09/28/2010 15 9-52 (U/L) Final 07/17/2009 39 9-52 (U/L) Final Slightly lipemic No results found for this basename: PROTIME, INR, PTT Assessment: Intercostal neuralgia Plan: 1. Referral to pain management for definitive injection therapy. documented in this encounter Plan of Treatment Scheduled Referrals Name Type Priority Associated Diagnoses Orde r Schedule AMB CONSULT PAIN CLINIC Outpatient Referral Routine Musculoskeletal pain Ordered: 05/19/2012 documented as of this encounter Visit Diagnoses Diagnosis Musculoskeletal pain- Primary Mylagia and myositis, unspecified documented in this encounter Care Teams Electrical Machine Builder Relationship Specialty Start Date End Date Hsueyin Zazueta MD [address] [place] [address] PCP - General 07/16/09 documented as of this encounter
--- OUTSIDE RECORDS SUMMARY | 2024-05-02 15:22 | XMS_ITS | Encounter Summary ---
Author Organization [facility] Address [address] [place] [address] Care Team Providers Care Registered Art Therapist Name Role Phone Huseyin Zazueta MD Primary Care Provider Reason for Visit * Reason Onset Date Comments Results 11/23/2012 Encounter Details Date Type Department Care Team (Late st Contact Info) Description 11/23/2012 Telephone [facility] Endocrinology - [address] [id number] Carlin Manriquez MD [address] [place] [phone] Results Social History Tobacco Use Types Packs/Day Years [...] Miscellaneous Notes * Telephone Encounter - Sonali Hooks RN - 11/24/2012 4397 EDT Phone call Carolyn Patient informed of Dr. Manriquez's review of her lab results (see below) Verbalizes understanding with no barriers. * Telephone Encounter - Carlin Manriquez 11/24/2012 1544 EDT A1c 8.6%, so better. LDL above goal at 126 - we have discussed this before, may want a statin eventually (doesn't want more pregnancies but needs VERY reliable control). Urine negative for protein. I will send values in a letter, but she is anxious to have them now... * Telephone Encounter - Paty Phillips - 11/23/2012 1541 EDT Patient is calling for results from b/w done here yesterday. documented in this encounter Plan of Treatment Not on file documented as of this encounter Visit Diagnoses Not on filedocumented in this encounter Care Teams Registered Art Therapist Relationship Specialty Start Date End Date Huseyin Zazueta MD [address] [place] [id number] PCP - General 07/16/09 documented as of this encounter
--- OUTSIDE RECORDS SUMMARY | 2024-05-02 15:22 | XMS_ITS | Encounter Summary ---
Author Organization [facility] Address [address] [place] [address] Care Team Providers Care Entry Table Operator Name Role Phone Huseyin Zazueta MD Primary Care Provider [phone] Encounter Details Date Type Department Care Team (Late st Contact Info) Description 02/13/2013 Documentation Visit [facility] Obstetrics & Midwifery - [facility] [address] [place], [place] [id number] Magdalena Arzate MD [address] [facility], [address] [place] [address] Social History Tobacco Use Types [...] on filedocumented in this encounter Care Teams Entry Table Operator Relationship Specialty Start Date End Date Huseyin Zazueta MD [address] [place] [address] PCP - General 07/16/09 documented as of this encounter
--- OUTSIDE RECORDS SUMMARY | 2024-05-02 15:22 | XMS_ITS | Encounter Summary ---
Author Organization [facility] Address [address] [place] [address] Care Team Providers Care Candy Waffle Assembler Name Role Phone Huseyin Zazueta MD Primary Care Provider [phone] Reason for Visit * Reason Comments Diabetes Encounter Details Date Type Department Care Team (Latest Contact Info) Description 10/05/2012 8:40 EDT Office Visit [facility] Endocrinology - [address] [address] Carlin Manriquez MD [address] [place] [address], [address] [phone] Type I (juvenile type) diabetes mellitus without mention of complication, uncontrolled (Primary Dx); Pure hypercholesterolemia; Smoker Social History Tobacco Use Types Packs/Day [...] Sign Reading Time Taken Comments Blood Pressure 100/62 10/05/2012 0839 EDT Pulse 66 10/05/2012 0839 EDT Temperature - - Respiratory Rate - - Oxygen Saturation - - Inhaled Oxygen Concentration - - Weight 56.1 kg (123 lb 11.2 oz) 10/05/2012 0839 EDT Height 154.9 cm (5' 1) 10/05/2012 0839 EDT Body Mass Index 23.37 10/05/2012 0839 EDT documented in this encounter Patient Instructions * Patient Instructions* Carlin Manriquez - 10/05/2012 9:02 EDT Super job! Your numbers look as good as I have seen in a long time!! Keep using Lantus 25 un in the morning. [place] as you need to with your carb ratio. 1:8 seems to be working well, but you may need to use more insulin in the morning and less later in the day, especially just before or after vigorous exercise. Also watch for trends overnight: does your glucose fall or rise or sort of stay the same? It's tough to tell from the numbers at this point. Drop in to any [facility] lab in 6 weeks (around mid-November) and get an A1c. documented in this encounter Progress Notes * Carlin Manriquez - 10/05/2012 0851 EDT [facility] Diabetes Follow-Up Note SUBJECTIVE: Patient ID: Carolyn Sosa is an 31 y.o. female. CHIEF COMPLAINT: Carolyn Sosa presents with Diabetes. Diabetes She presents for her follow-up diabetic visit. She has type 1 diabetes mellitus. MedicAlert identification noted. The initial diagnosis of diabetes was made 3 years (diagnosed 07/2009 and JOHNNY+) ago. Her disease course has been improving. Hypoglycemia symptoms include confusion, hunger, mood changes, nervousness/anxiousness, sweats and tremors. Associated symptoms include fatigue. There are no hypoglycemic complications. Symptoms are improving. There are no diabetic complications. Risk factors for coronary artery disease include tobacco exposure and stress. Current diabetic treatment includes insulin injections. She is compliant with treatment most of the time. She is currently taking insulinpre-breakfast, pre-lunch, pre-dinner and at bedtime. Insulin injections are given by patient. Rotation sites for injection include the abdominal wall and thighs. Her weight is stable. She is following a diabetic diet. Meal planning includes avoidance of concentrated sweets and carbohydrate counting. She has had a previous visit with a dry cleaner helper. She rarely participates in exercise. She monitors blood glucose at home 5+ x per day. Her home blood glucose trend is decreasing steadily. An KENDRICK inhibitor/angiotensin II receptor tori is not being taken. She does not see a shearer helper.Eye exam is current. Carolyn is here for followup of type 1 diabetes that she has had for about 3 years. I last saw her inDecember 2011 when her hemoglobin A1c was 9.4%, then in August 2012 he was down to 9.3%. She is not due for an A1c today yet. In the interim, around July or August, she began using a Dexcom continuous glucose monitor (CGM), and she has been thrilled with the results. She enjoys seeing numbers on a regular basis, enjoys following trends, and has been much more diligent about checking glucoses more frequently. Her fingerstick glucoses from the glucometer readout that I have in front of me are as good as I have ever seen him. The lowest number I see is 44, which unfortunately she did not feel, but other than that, there are scattered numbers in the 50s and 60s with most lying between 70 and 150. She has very few numbers over 200, and they generally are actually spikes to 300 or 400 which she then corrected appropriately. One thing Carolyn tells me is that by using her Dexcom sensor, she discovered she was having frequent, repeated, significant nocturnal hypoglycemia. As a result, she changed her Lantus insulin so that instead of using twice daily dosing, she uses 1 dose of Lantus in the morning, 25 units. She says this has made a tremendous difference for her. In addition, she uses NovoLog insulinwith an insulin to carb ratio of 1:8. Finally, Carolyn has begun exercising regularly, doing video dose and taking walks. She has found a group of 3 other people at work who have type 1 diabetes, as well as 1 colleague who has 3 children with type 1 diabetes. This is actually served as a bit of a social support group for her, and she seems very pleased with that. My only complaint is that she continues to smoke, but she is smoking less. Of note, she reminds me today herself, that she is due for labs. she continues to be incredibly busy with her 3 children and with work, but she seems to have a more positive attitude today than I have seen in a long time. She is sexually active and is on a control patch (Ortho Evra). In addition she has hypercholesterolemia and is on statin. She does not have hypertension or microalbuminuria, so she is not on anACE inhibitor or an ARB. Results for CAROLYN SOSA ( ) as of 10/05/2012 09:16 Ref. Range 07/15/2011 08:19 08/27/2011 15:45 12/28/2011 15:27 05/09/2012 08:57 08/18/2012 15:12 Hemoglobin A1c, POC Latest Range: 5.7 9.8 (A) 9.0 (A) 9.4 (A) 9.3 (A) Ur Alb ug/mg Crea No range found 6.3 Ur Albumin mg/dl Latest Range: <1.9 mg/dl 0.7 In addition, patient reports no additional symptoms and denies no additional symptoms. Psychosocial, cultural, or economic factors that might influence management of diabetes include: incredibly busy as a single mother of 3 children and stressful work life. Carolyn does not have any pertinent problems on file. The patient reports that she has been smoking. She has never used smokeless tobacco. She reports that she drinks alcohol. Carolyn has a current medication list which includes the following prescription(s): glucagon, glucagon, simvastatin, ketone urine reagent strip, insulin aspart, insulin glargine, insulin pen needles 31g x /16, blood glucose, and norelgestromin-ethinyl estradiol. Allergies include: Levemir Review of Systems Constitutional: Positive for fatigue. Neurological: Positive for tremors. Psychiatric/Behavioral: Positive for confusion. The patient is nervous/anxious. All other systems reviewed and are negative. - See HPI OBJECTIVE: Vitals: BP 92/62 Pulse 76 Ht 154.9 cm (61) Wt 56.246 kg (124 lb) BMI 23.43 kg/m2 BMI: Body mass index is 23.43 kg/(m^2). Physical Exam Constitutional: She is oriented to person, place, and time. She appears well- developed and well-nourished. HENT: Head: Atraumatic. Eyes: EOM are normal. Neck: Neck supple. No thyromegaly present. Cardiovascular: Normal rate and regular rhythm. No murmur heard. Pulmonary/Chest: Effort normal and breath sounds normal. No respiratory distress. Musculoskeletal: She exhibits no edema and no tenderness. Neurological: She is alert and oriented to person, place, and time. She has normal reflexes. Skin: Skin is warm and dry. tanned Psychiatric: She has a normal mood and affect. Her behavior is normal. Judgment and thought contentnormal. Funduscopic: deferred Feet: Good hygiene of the nails with no hypertrophy or onychomycosis. There are no osseous deformities or open lesions. Vibratory sense is intact. No pedal edema. Dorsalis pedis pulses and tibial pulses are felt. LABS: Lab Results Component Value Date HGBA1C 9.3* 08/18/2012 Lab Results Component Value Date CHOL 228 07/15/2011 HDL 43 07/15/2011 LDLBASE 171 07/15/2011 TRIG 68 07/15/2011 CHOLHDL 5.3 07/15/2011 Lab Results Component Value Date BUN 11 07/15/2011 CREATININE 0.62 07/15/2011 NA 140 07/15/2011 K 4.5 07/15/2011 Lab Results Component Value Date ALT 22 07/15/2011 Lab Results Component Value Date LABALBU 4.1 07/15/2011 UCREA 111.9 07/15/2011 MICRALBCRRAT 6.3 07/15/2011 ASSESSMENT: 1. Type I (juvenile type) diabetes mellitus without mention of complication, uncontrolled 2. Pure hypercholesterolemia 3. Smoker Carolyn is a very nice and fairly sophisticated but busy 31-year-old with type 1 diabetes, without microvascular or macrovascular complications, but poorly controlled. 1. T1DM the Dexcom CGM device has been tremendously helpful for Carolyn. Her glucoses are as good as I have ever seen them, and she was able to recognize previously unknown nocturnal hypoglycemia and to adjust her Lantus insulin dose accordingly. Currently she uses Lantus 25 units each morning and NovoLog 1:8 carb ratio. She has begun exercising more, is checking glucoses more, has a better attitude, and is generally taking control for diabetes like I have never seen before. I congratulated her on her success, and we discussed strategies for keeping good numbers going forward. 2. Hypercholesterolemia: Carolyn is due for annual labs including a fasting lipid panel, comprehensive metabolic panel, and urine microalbumin to creatinine ratio. In addition, she will be due for an A1c in about 6 weeks. 3. Followup: Carolyn and I agree that she should be seen more frequently for the next 6 months in order to maintain this moment him and get her A1c down into the 7% range. She will either see Lacie Nichole or Camelia Figueroa in 8 weeks, and then see me again in 4 months. My exit recs: Super job! Your numbers look as good as I have seen in a long time!! Keep using Lantus 25 un in the morning. [place] as you need to with your carb ratio. 1:8 seems to be working well, but you may need to use more insulin in the morning and less later in the day, especially just before or after vigorous exercise. Also watch for trends overnight: does your glucose fall or rise or sort of stay the same? It's tough to tell from the numbers at this point. Drop in to any [facility] lab in 6 weeks (around mid-November) and get an A1c. Patient understands medication regimen. Barriers to adherence: Family Support and stress with busy life. Goals and plan to achieve these discussed Systolic blood pressure less than 130. And diastolic blood pressure less than 80. Hemoglobin A1C less than 7%. LDL cholesterol: 70 to 99. HDL males >40 and females > 50 mgm/dl Triglycerides fasting < 150 mgm/dl PLAN: Medications: Insulin: Insulin stabilization is required: see above Non-insulin: diet. Recommended: Statin therapy already taking - no change and ACEI therapy not indicated as neither hypertensive nor with microalbuminuria. Glucose monitoring 6 times daily. Referred to diabetic education program. Referred to dry cleaner helper no but she will see either Lacie Nichole or Camelia Figueroa alternating with me. Patient referred to eye lawn care technician for annual dilated eye exam. Lifestyle modifications: recommend exercise and recommend compliance with a diabetic diet Return in 4 months and either Lacie or Camelia in 8 weeks. Carlin Manriquez MD 10/05/2012 8:51 HPI documented in this encounter Plan of Treatment Not on file documented as of this encounter Results * HEMOGLOBIN A1C (11/22/2012 11:55 EDT) Hemoglobin A1C 8.6 % [facility] Comment: Reference Range: <5.7% Normal 5.7-6.4% Increased risk for diabetes =>6.5% Diagnostic for diabetes (if confirmed) The A1c goal for non adults in general is <7%. The A1c goal for selected patients may be significantly lower than 7% if this can be achieved without significant hypoglycemia or other adverse effects of treatment. Est Avg Glucose 200 mg/dl [facility] Comment: eAG represents the A1c result expressed as average glucose in mg/dl. Blood specimen (specimen) 11/22/2012 11:55 EDT 11/22/2012 15:34 EDT us Carlin Manriquez MD CHEMISTRY & BLOOD GAS ORDERABL ES Final Result [facility] [address] [place] [address] * (ABNORMAL) COMPREHENSIVE METABOLIC PANEL (CMP) (11/22/2012 11:55 EDT) Potassium 4.1 3.5 - 5.0 mEq/L [facility] Sodium 138 136 - 145 mEq/L [facility] Chloride 104 96 - 110 mEq/L [facility] CO2 25 24 - 32 mEq/L [facility] Total Alkaline Phosphatase 56 38 - 126 U/L [facility] Bilirubin, Total <0.5 0.2 - 1.3 mg/dl [facility] AST 16 15 - 46 U/L [facility] ALT 20 9 - 52 U/L [facility] Albumin 4.1 3.4 - 4.9 g/dl [facility] Total Protein 7.1 6.5 - 8.3 g/dl [facility] Creatinine 0.55 0.52 - 1.04 mg/dl [facility] GFR, Calculated >60 >60 ml/min/1.7 3m2 [facility] BUN 8(L) 10 - 26 mg/dl [facility] Calcium 9.6 8.5 - 10.5 mg/dl [facility] Calculated Calcium 9.9 8.5 - 10.5 mg/dl [facility] Glucose, Serum 215(H) 70 - 100 mg/dl [facility] Fasting? Unknown [facility] Blood specimen (specimen) 11/22/2012 11:55 EDT 11/22/2012 15:34 EDT Carlin Manriquez MD CHEMISTRY & BLOOD GAS ORDERABL ES Final Result Performing Organization Address [facility] de Phone Number [facility] [address] [place] [address] * LIPID PROFILE (INCLUDES CHOLESTEROL, TRIGLYCERIDES, HDL, LDL) (11/22/2012 11:55 EDT) Cholesterol 198 mg/dl [facility] Comment: Desirable:<200 Borderline High:200-239 High:>jo=307 Triglycerides 66 mg/dl [facility] Comment: Normal:<150 Borderline High:150-199 High:200-499 Very High:>ul=040 HDL 59 mg/dl [facility] Comment: Low:<40 Normal:40-60 Desirable: >60 LDL, Calculated 126 mg/dl [facility] Comment: Optimal:<100 Near Optimal:100-129 Borderline High:130-159 High:160-189 Very High:>nw=626 Chol/HDL Ratio 3.4 [facility] Fasting? Unknown [facility] Blood specimen (specimen) 11/22/2012 11:55 EDT 11/22/2012 15:34 EDT Carlin Manriquez MD CHEMISTRY & BLOOD GAS ORDERABL ES Final Result Performing Organization Address [facility] de Phone Number [facility] [address] [place] [address] * ALBUMIN, URINE (11/22/2012 11:49 EDT) Creatinine, Urn Webster 8.3 mg/dl [facility] Ur Albumin mg/dl <0.2 mg/dl [facility] Ur Alb ug/mg Crea Unable to calculate ug/mg Crea result. ug/mg Crea [facility] Comment: Normal: <30 ug/mg creat High: 30-300 ug/mg creat Very high and nephrotic: >300 ug/mg creat Urine specimen (specimen) URINE / Unknown 11/22/2012 11:49 EDT 11/22/2012 15:35 EDT us Carlin Manriquez MD CHEMISTRY & BLOOD GAS ORDERABL ES Final Result [facility] [address] [place] [address] documented in this encounter Visit Diagnoses Diagnosis Type I (juvenile type) diabetes mellitus without mention of complication, uncontrolled- Primary Pure hypercholesterolemia Smoker Tobacco use disorder documented in this encounter Care Teams Candy Waffle Assembler Relationship Specialty Start Date End Date Huseyin Zazueta MD [address] [place] [address] PCP - General 07/16/09 documented as of this encounter
--- OUTSIDE RECORDS SUMMARY | 2024-05-02 15:22 | XMS_ITS | Encounter Summary ---
Author Organization [facility] Address [address] [place] [address] Care Team Providers Care Loss Prevention Supervisor Name Role Phone Huseyin Zazueta MD Primary Care Provider [phone] Reason for Visit * Reason Onset Date Comments Diabetes 02/13/2013 Encounter Details Date Type Department Care Team (Late st Contact Info) Description 02/13/2013 Telephone [facility] Endocrinology - [address] [address] Raffaele Nichole RN CDE Diabetes Social History [...] Telephone Encounter - Raffaele Nichole RN - 02/13/2013 1308 EDT email from pt: Khurram Medellin, Just wanted to touch base on my morning numbers Wake up [phone] I have thought since we spoke about anything that might have changed in the last few days that would affect my sugars and had a thought. I haven't really been drinking a lot of water recently and that was a clements for good numbers before. I am going to be pounding the liquid today and will let you know the results. I'm pretty sure this is the issue since the insulin seems to be taking longer to kickin (its not that it isn't working). Hayley This is my reply: Khurram Vides, Thanks for sending the readings. Things are looking good. I will forward this to Dr Manriquez. Thanks, raffaele documented in this encounter Plan of Treatment Not on file documented as of this encounter Visit Diagnoses Not on filedocumented in this encounter Care Teams Loss Prevention Supervisor Relationship Specialty Start Date End Date Huseyin Zazueta MD [address] [place] [address] PCP - General 07/16/09 documented as of this encounter
--- OUTSIDE RECORDS SUMMARY | 2024-05-02 15:22 | XMS_ITS | Encounter Summary ---
Author Organization [facility] Address [address] [place] [address] Care Team Providers Care Smoke Jumper Name Role Phone Huseyin Zazueta MD Primary Care Provider [phone] Encounter Details Date Type Department Care Team (Late st Contact Info) Description 02/15/2013 Phlebotomy Only [facility] [address] [place] [address] Cooling Pipe Inspector, Outpatient Supervision of high-risk Social History Tobacco Use Types Packs/Day Years [...] Procedure Name Priority Date/Time Associated Diagnosis Comments BACTERIAL CULTURE, URINE Routine 02/15/2013 16:50 EDT Supervision of high-risk BB STUDY Routine 02/15/2013 16: 04 EDT PROFILE AND VARICELLA Routine 02/15/2013 16:04 EDT Supervision of high-risk SYPHILIS SEROLOGY Routine 02/15/2013 16: 04 EDT DIFFERENTIAL Routine 02/15/2013 16:04 EDT RUBELLA IGG ANTIBODY Routine 02/15/2013 16:04 EDT HEPATITIS B SURFACE ANTIGEN Routine 02/15/2013 16:04 EDT COMPLETE BLOOD COUNT Routine 02/15/2013 16:04 EDT VARICELLA IGG ANTIBODY Routine 02/15/2013 16:04 EDT HIV 1/2 ANTIGEN AND ANTIBODY, 4TH GENERATION Routine 02/15/2013 16:04 EDT Supervision of high-risk documented in this encounter Results * BACTERIAL CULTURE, URINE (02/15/2013 16:50 EDT) Pathologist [facility] Specimen Description Urine [facility] Result Less than 10,000 CFU/ml Mixed gram positive growth [facility] Report Status 02/17/2013 Final [facility] Urine specimen (specimen) URINE / Unknown 02/15/2013 16:50 EDT 02/15/2013 17:31 EDT Magdalena Arzate MD MICROBIOLOGY - GENERA L ORDERABLES Final Result Performing Organization Address [facility] Co de Phone Number [facility] [address] [place] [address] * VARICELLA IGG ANTIBODY (02/15/2013 16:04 EDT) Pathologist [facility] Varicella IgG Ab Interpretati on: Positive [facility] Comment: Presence of detectable Varicella Zoster virus IgG antibodies. 02/15/2013 16:0 4 EDT 02/15/2013 16:23 EDT Magdalena Arzate MD IMMUNOLOGY AND SEROLO GY ORDERABLES Final Result Performing Organization Address [facility] Co de Phone Number [facility] [address] [place] [address] * SYPHILIS SEROLOGY (02/15/2013 16:04 EDT) Pathologist [facility] Syphilis Serology Interpretation: Nonreactive [facility] Comment:Reference Range: Non reactive 02/15/2013 16:0 4 EDT 02/15/2013 16:23 EDT us Magdalena Arzate MD IMMUNOLOGY AND SEROLO GY ORDERABLES Final Result Performing Organization Address [facility] de Phone Number [facility] [address] [place] [address] * RUBELLA IGG ANTIBODY (02/15/2013 16:04 EDT) Rubella IgG Ab Positive [facility] Comment: Positive results suggest immunity to Rubella infection. 02/15/2013 16:0 4 EDT 02/15/2013 16:23 EDT us Magdalena Arzate MD CHEMISTRY & BLOOD GAS ORDERABLES Final Result Performing Organization Address [facility] [place] [address] * HEPATITIS B SURFACE ANTIGEN (02/15/2013 16:04 EDT) Hepatitis B Surface Ag Negative [facility] Comment:Reference Range: Neg ative 02/15/2013 16:0 4 EDT 02/15/2013 16:23 EDT us Magdalena Arzate MD CHEMISTRY & BLOOD GAS ORDERABLES Final Result Performing Organization Address [facility] de Phone Number [facility] [address] [place] [address] * BB STUDY (02/15/2013 16:04 EDT) ABO and Rh Type O POS [facility] Antibody Screen Neg [facility] 02/15/2013 16:0 4 EDT 02/15/2013 16:23 EDT us Magdalena Arzate MD BLOOD BANK TESTS Thu l Result [facility] [address] [place] [address] * (ABNORMAL) DIFFERENTIAL (02/15/2013 16:04 EDT) % Neutrophils 61.2 45.5 - 79.7 % [facility] % Lymphocytes 28.8 15.0 - 46.8 % [facility] % Monocytes 7.6 1.8 - 12.0 % [facility] % Eosinophils 1.4 0.6 - 6.9 % [facility] % Basophils 1.0 0.2 - 1.4 % [facility] ABS Neutrophils 9.38(H) 2.20 - 8.85 K/cmm [facility] ABS Lymphs 4.42(H) 1.09 - 3.30 K/cmm [facility] ABS Monocytes 1.17(H) 0.1 - 0.8 K/cmm [facility] ABS Eosinophils 0.22 0.03 - 0.61 K/cmm [facility] ABS Basophils 0.15(H) 0.01 - 0.11 K/cmm [facility] Type of Diff: Automated [facility] 02/15/2013 16:0 4 EDT 02/15/2013 16:23 EDT us Magdalena Arzate MD HEMATOLOGY & PF4 TOO PATEL Final Result [facility] [address] [place] [address] * (ABNORMAL) HEMAGRAM (02/15/2013 16:04 EDT) WBC 15.33(H) 4.0 - 12.4 K/cmm [facility] RBC 4.42 3.86 - 5.04 M/cmm [facility] Hemoglobin 13.3 11.6 - 15.2 gm/dl [facility] HCT 39.1 34.9 - 44.4 % [facility] MCV 88 81 - 98 fl [facility] MCH 30.0 26.7 - 33.3 pg [facility] MCHC 33.9 32.1 - 35.9 gm/dl [facility] PLT 269 141 - 320 K/cmm [facility] RDW-CV 14.4 11.7 - 14.6 % [facility] 02/15/2013 16:0 4 EDT 02/15/2013 16:23 EDT us Magdalena Arzate MD HEMATOLOGY & PF4 ORDE RABLES Final Result Performing Organization Address City/[facility] Co de Phone Number [facility] [address] [place] [address] * HIV 1/2 ANTIBODY (02/15/2013 16:04 EDT) HIV 1/2 Antibody Negative [facility] Comment: Reference Range: ??Negative Assayed utilizing POPRAGEOUS chemiluminescent technology. Blood specimen (specimen) 02/15/2013 16:04 EDT 02/15/2013 16:23 EDT us Magdalena Arzate MD IMMUNOLOGY AND SEROLO GY ORDERABLES Final Result Performing Organization Address [facility] de Phone Number [facility] [address] [place] [address] documented in this encounter Visit Diagnoses Diagnosis Supervision of high-risk Unspecified high-risk documented in this encounter Care Teams Smoke Jumper Relationship Specialty Start Date End Date Huseyin Zazueta MD [address] [place] [address] PCP - General 07/16/09 documented as of this encounter
--- OUTSIDE RECORDS SUMMARY | 2024-05-02 15:22 | XMS_ITS | Encounter Summary ---
Author Organization [facility] Address [address] [place] [address] Care Team Providers Care Supervisor Veneer Name Role Phone Huseyin Zazueta MD Primary Care Provider Reason for Visit * Reason Comments Labs Only Encounter Details Date Type Department Care Team (Latest Contact Info) Description 02/15/2013 10:00 EDT Procedure visit [facility] Endocrinology - [address] [address] Unknown, Provider, Phlebotomy, [facility] Type I (juvenile type) diabetes mellitus without [...] encounter Progress Notes * Rochelle Giles - 02/15/2013 1017 EDT Blood sample drawn from vein for testing at the order of Dr. Manriquez ???I was supervised by Dr. Manriquez who was in the suite and readily available.?? documented in this encounter Plan of Treatment Not on file documented as of this encounter Procedures Procedure Name Priority Date/Time Associated Diagnosis Comments FRUCTOSAMINE Routine 02/15/2013 10:13 EDT Type I (juvenile type) diabetes mellitus without mention of complication, uncontrolled documented in this encounter Results * FRUCTOSAMINE (02/15/2013 10:13 EDT) Fructosamine, S 265 200 - 285 mcmol/L [facility] Comment: Performed by: [facility] [place], [address], [place] [address], Patient Resource Coordinator: Sonali Navarro, Ph.D. Blood specimen (specimen) 02/15/2013 10:13 EDT 02/15/2013 15:14 EDT us Carlin Manriquez MD CHEMISTRY & BLOOD GAS ORDERABL ES Final Result [facility] [address] [place] [address] documented in this encounter Visit Diagnoses Diagnosis Type I (juvenile type) diabetes mellitus without mention of complication, uncontrolled- Primary documented in this encounter Care Teams Supervisor Veneer Relationship Specialty Start Date End Date Huseyin Zazueta MD [address] [place] [address] PCP - General 07/16/09 documented as of this encounter
--- OUTSIDE RECORDS SUMMARY | 2024-05-02 15:22 | XMS_ITS | Encounter Summary ---
Author Organization [facility] Address [address] [place] [address] Care Team Providers Care Fitter Welder Name Role Phone Huseyin Zazueta MD Primary Care Provider [phone] Reason for Referral * MANUSCRIPTS CURATOR (Routine/Next Available) - Closed Specialty Diagnoses / Procedures Referred By Neva zacarias Referred To Contact Diagnoses Amenorrhea Procedures SIGN FABRICATOR OB FIRST TRIMESTER TRANSVAGINAL Marilu Anderson RN Referral ID Status Reason Start Date Expiration Date Visits Re quested Visits Authorized [id number] Closed 01/29/2013 1 1 Reason for Visit * Reason Onset Date Comments Amenorrhea 01/26/2013 pt has positive UPT Encounter Details Date Type Department Care Team (Late st Contact Info) Description 01/26/2013 Telephone [facility] [address] [place], [place] [id number] Marilu Anderson, EDITH Amenorrhea (pt has positive UPT) Social History Tobacco Use Types Packs/Day Years [...] encounter Miscellaneous Notes * Telephone Encounter - Marilu Anderson RN - 01/29/2013 1153 EDT TC to pt to inform her of [facility] [place] [id number]. [facility] 02/01[facility]2013. Marilu Anderson RN * Telephone Encounter - Marilu Anderson RN - 01/26/2013 1641 EDT Date: 01/26/2013 Time: 1630 Phone #: [phone] Referring Provider: [facility] Provider: : 6 Para: 3 Abort: 1 Ectopic:0 Miscarriage: 1 How conceived? Spontaneous X CC/HCG/IUI Other LMP: 12/22/2012 GA: Blood Type: positve Current Medications: Type ! diabetes Allergies: levemir Ht: 5'1 Wt: 119lb Risk Factors: Abdominal pain or vaginal bleeding? NO Previous pelvic or tubal surgery or ruptured appendix? NO History of pelvic infections? YES Previous tubal ? NO Do you have an IUD? NO Do you have a history of infertility for > 1 year? NO Do you have a chronic medical illness? Type 1 diabetes Previous outcomes: Date: 1999 SND Girl 1999 TAB 2002 girl 2004 SAB 2004 boy Beta HCG Levels Date: 01/17/13 at MD office 82 Ultrasound Scheduled? Date: Time: Phone #: documented in this encounter Plan of Treatment Not on file documented as of this encounter Procedures Procedure Name Priority Date/Time Associated Diagnosis Comments SIGN FABRICATOR US OB FIRST TRIMESTER TRANSVAGINAL Routine 02/01/2013 11:18 EDT Amenorrhea OUTPATIENT ADD-ON Routine 01/26/2013 16: 52 EDT Amenorrhea documented in this encounter Results * SIGN FABRICATOR US OB FIRST TRIMESTER TRANSVAGINAL (02/01/2013 11:18 EDT) Anatomical Region Laterality Modality Other 02/01/2013 11:1 8 EDT 02/01/2013 11:30 EDT Narrative 02/01/2013 11:30 EDT Indication: viability. History: Age: 32 years. LMP known. Dating: LMP: 12/22/2012 EDC: 09/28/2013 GA by LMP: 5w6d Best Overall Assessment: 02/01/2013 EDC: 09/28/2013 Assessed GA: 5w6d The Best Overall Assessment is based on the LMP. Early Assessment: Biometry: CRL 1.8 mm n/a Gestational Sac present. Yolk Sac present. Embryo present. Heart activity: Present. Other Findings: very early ,too early for FHR. Maternal Structures: Uterus: normal,anteverted. Cervix: normal. Right Ovary: normal. Left Ovary: Normal ??w/ Corpus Luteum. Cul de Sac / Pouch of Robin: no free fluid visible. Report Summary: Impression: 1st Trimester OB scan ,transvaginal +[id number] Single viable intrauterine (IUP) , size equals menstrual dates. Recommendations: D/W patient.We recommend follow-up in 2 weeks. Procedure Note 02/01/2013 Indication: viability. History: Age: 32 years. LMP known. Dating: LMP: 12/22/2012 EDC: 09/28/2013 GA by LMP: 5w6d Best Overall Assessment: 02/01/2013 EDC: 09/28/2013 Assessed GA: 5w6d The Best Overall Assessment is based on the LMP. Early Assessment: Biometry: CRL 1.8 mm n/a Gestational Sac present. Yolk Sac present. Embryo present. Heart activity: Present. Other Findings: very early ,too early for FHR. Maternal Structures: Uterus: normal,anteverted. Cervix: normal. Right Ovary: normal. Left Ovary: Normal w/ Corpus Luteum. Cul de Sac / Pouch of Robin: no free fluid visible. Report Summary: Impression: 1st Trimester OB scan ,transvaginal +[id number] Single viable intrauterine (IUP) , size equals menstrual dates. Recommendations: D/W patient.We recommend follow-up in 2 weeks. us Hamlet Cherry MD IMG US SIGN FABRICATOR ORDERABLES Final Re sult * OUTPATIENT ADD-ON (01/26/2013 16:52 EDT) Tests to be added [facility] [place] [facility] Diagnosis Code SEE PRISM DOS 8.23.13 [facility] Number for problems 7 [facility] Comment:[id number] [place] [id number] Accession number [id number] [facility] Acknowledge ABP Done [facility] 01/26/2013 16:5 2 EDT 01/26/2013 19:37 EDT us Hamlet Cherry MD HEMATOLOGY & PF4 ORDERABLES Fi nal Result [facility] [address] [place] [address] documented in this encounter Visit Diagnoses Diagnosis Amenorrhea- Primary Absence of menstruation documented in this encounter Care Teams Fitter Welder Relationship Specialty Start Date End Date Huseyin Zazueta MD [address] [place] [address] PCP - General 07/16/09 documented as of this encounter
--- OUTSIDE RECORDS SUMMARY | 2024-05-02 15:22 | XMS_ITS | Encounter Summary ---
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 (Specify in Question)) - Closed Specialty Diagnoses / Procedures Referred By Neva zacarias Referred To Contact Diagnoses Diabetes in Procedures [facility] DETAILED Johnna Siu MD Phone: tel: fax: Referral ID Status Reason Start Date Expiration Date Visits Re quested Visits Authorized [id number] Closed 02/15/2013 1 1 Reason for Visit * Reason Comments Initial Visit -[facility] we[facility] Encounter Details Date Type Department Care Team (Late st Contact Info) Description 02/15/2013 15:00 EDT Initial [facility] - [address] [address] Magdalena Arzate MD [address] [facility], [address] [place] [id number] GA: 7w6d Social History Tobacco Use Types Packs/Day Years [...] Sign Reading Time Taken Comments Blood Pressure 92/58 02/15/2013 1456 EDT Pulse - - Temperature - - Respiratory Rate - - Oxygen Saturation - - Inhaled Oxygen Concentration - - Weight 54.4 kg (120 lb) 02/15/2013 1456 EDT Height 156.2 cm (5' 1.5) 02/15/2013 1456 EDT Body Mass Index 22.31 02/15/2013 1456 EDT documented in this encounter Progress Notes * Magdalena Arzate MD - 02/16/2013 1635 EDT I examined Ms Sosa with Dr Siu and agree with the above assessment and plan as noted. Briefly, Ms Sosa is a 32-year-old 6, para 3, 0,2,3 who is currently at 7 weeks and 6 days based on her last menstrual period, which is consistent with an ultrasound performed today. Ms Sosa presents for initiation of care in the setting of type 1 diabetes, which was diagnosed in 2007. Of note, her diagnosis came after all of her pregnancies and she did not have diabetes in her prior pregnancies. Her most recent hemoglobin A1c was in January and was 8.4. Ms Hathaway is followed by Dr Manriquez from endocrinology. We discussed with Ms Sosa our tight blood glucose control goals in . Specifically, we discussed the fasting blood sugar levels of less than 95 and 2-hour postprandial values less than 120. She will continue to be seen by the Endocrinology service here who arecurrently managing her insulin. She is currently on 30 units of Lantus daily with a 1 to 7 carb ratio and NovoLog based on that. As stated above, we discussed both maternal and morbidities associated with diabetes in including macrosomia, growth restriction, hyperbilirubinemia, hypoglycemia and complications such as preeclampsia. At the end of the visitMs Sosa had no further questions. We will see her in approximately 2 to 4 weeks. Magdalena Arzate MD * Johnna Siu MD - 02/15/2013 8171 EDT Initial visit at maternal- medicine service. HISTORY OF PRESENT ILLNESS: Carolyn Sosa is a 32-year-old G6, P3-0-2-3 at 7 weeks and 6 days gestational age based on last menstrual period, consistent with an ultrasound today with an JELANI of September 28, 2013. Carolyn presents today for initiation of care with maternal- medicine service for history of type 1 diabetes diagnosed in approximately 2007. She states that she has had some suboptimalcontrol leading into this and that this was a surprise and therefore she had not optimized her sugars prior to conception. Of note, her A1c in November was 8.6 with improvement to 8.4when last tested in January 2013. She currently follows with Dr Manriquez in the endocrinology clinic at [facility]. She states that she lives in [facility] and works in [employer] and therefore will be able to follow up with us as needed. She is considering endocrine MFM clinic on Tuesday afternoon butis unsure if this is something that she wishes to proceed with. From a standpoint, she states that she is doing well. She states that she is having breast tenderness, some nausea and occasional dry heaves; however, has not had any significant emesis to this point. Her appetite is still good. However, she states that she is very tired and is having typical first trimester symptoms. PAST OBSTETRICAL HISTORY: G1: 1999. Term spontaneous vaginal delivery, 6 pounds 10 ounces, female. G2: Elective . G3: 2002. Spontaneous vaginal delivery term infant, 6 pounds 8 ounces, female. G4: 2003. Spontaneous with no D+C. G5: 2004. Spontaneous vaginal delivery at term, 6 pounds 7 ounces, male. G6: Current. The patient denies any history of abnormal Pap smears or procedures performed on her cervix, including prior cerclage, LEEP or cone. She does state that she had chlamydia in high school, but did havea negative test after treatment. PAST MEDICAL HISTORY: Carolyn was diagnosed with type 1 diabetes in approximately 2007, when she started having recurrent vaginal yeast infections, which prompted evaluation of her standing glucose levels and she was found to be a poorly controlled diabetic. At this point, she is currently thought leonora a type 1 diabetic. She does not use a pump. She previously saw Dr Manriquez in clinic earlier todayand has been increased on her Lantus and NovoLog. She states that she is currently going to be starting 30 units of Lantus every day with 1:7 carb ratio with her NovoLog. She states that she dislikescarb counting but grudgingly will do it. However, she prefers not to eat carbohydrates as it's just easier. PAST SURGICAL HISTORY: Denies. MEDICATIONS: vitamins, Lantus 30 units q. day, NovoLog carb ratio of 1:7 newly started today. ALLERGIES: No known drug allergies. SOCIAL HISTORY: Tobacco usage currently slightly less than half a pack per day, which is significantly improved from her baseline, which is approximately 1 to 1-1/2 packs per day. She plans on continuing to try to wean this until she is no longer smoking. She denies any alcohol or drug use and no drug abuse history. FAMILY HISTORY: She denies any family history of mental retardation or other genetic disorders. Shestates that there's not a family history of any abnormal or adverse outcomes including preeclampsia, thrombophilias, recurrent miscarriages or bleeding disorders. She does state that her father's family has an individual with Parkinson's and her mother's side has several people with cancer; however, no first-degree relatives. ASSESSMENT AND PLAN: Carolyn Sosa is a 32-year-old -0-2-3 at 7 weeks and 6 days by last menstrual period consistent with a 7-week plus 6-day ultrasound, who is a type 1 diabetic, followed by endocrinology here for initial visit. 1. Genetic screening was discussed with Carolyn today and I reviewed the options of no testing, UltraScreen alone, sequential screening, integrated screening and cell free DNA testing. She statesthat this whole topic makes her uncomfortable as she knows that there are false positives associated with this. She states that she would not consider termination for any aneuploidy or other anomalies found; therefore is not feeling that she would like to proceed with any genetic testing at this point. However, she and her partner are planning to discuss this further and if they change their mindshe knows to call our office so that we can schedule and order the right testing for her as she sees fit. 2. We extensively discussed the differences of diabetes in as compared to her other pregnancies. We discussed that her glycemic control will be significantly important for optimization throughout this for prevention of congenital anomalies as well as macrosomia, hyperbilirubinemia, jaundice, unstable glucoses as well as macrosomia and lung development. Sheunderstands that there is an increasing amount of testing associated with complicated by diabetes. We discussed that she will have a detailed ultrasound at approximately 19 weeks gestational age, followed by a echo at approximately 23 weeks. We discussed the institution of surveillance testing later in the third trimester, and she's understanding of all of these differences in care. Carolyn plans on following up with endocrinology regarding her glucose control in approximately 2 weeks' time. She states that she will be contacting them more frequently by either e-mail or fax and isconsidering joining the maternal- medicine endocrinology clinic on Tuesday afternoons. She previously had a Pap smear done in 2011, which was ASCUS with negative HPV. Based on the new ASCCP guidelines, we will not need to do a Pap smear for another approximately 2 years due to her negative HPV status. Our plan is to follow up with Carolyn in 2 weeks and she will need to have an exam for evaluation of her pelvis at that time frame. All of the patient's concerns and questions were answered at this visit. Johnna Siu MD documented in this encounter Plan of Treatment Not on file documented as of this encounter Procedures Procedure Name Priority Date/Time Associated Diagnosis Comments [facility] ECHOCARDIOGRAM (PEDI CARD) Routine 06/07/2013 13:32 EST Diabetes in [facility] DETAILED Routine 05/11/2013 8:53 EST Diabetes in documented in this encounter Results * [facility] ECHOCARDIOGRAM (PEDI CARD) (06/07/2013 13:32 EST) Anatomical Region Laterality Modality Other 06/07/2013 13:3 2 EST Narrative 06/07/2013 14:07 EST Patient Name: CAROLYN SOSA Chart Number: [id number] Site Location: Date of Appt: June, 1:15 PM Echocardiogram Report Demographics and Visit Data: Due Date: 29-Sep-2013. ??Gestational age (weeks): 23.86. ?? : 1980. ??Age: 32y/6m/6d. ??Reason for test: 648.00-Diabetes mellitus of mother, complicating , childbirth, or the puerperium, unspecifi. ?? Person requesting test: JOHNNA SIU MD ??Procedure Description: [facility] ECHOCARDIOGRAM (PEDI CARD). ?? echocardiogram at 24 weeks gestation. Normal chamber size and function. Normal arterial and venous connections. Normal Doppler study. No arrhythmias noted during the exam. No evidence of hydrops. The results of the study, its limitations and the limitations of echocardiography in general were reviewed. The inability to diagnose patent ductus arteriosus, some atrial defects, ventricular septal defects and coarctation was discussed. Further echocardiography is not recommended unless new concerns arise. Complete 2-dimensional study performed, with pulse/continuous wave Doppler samplings, and color flow Doppler imaging reviewed. Findings: ?? Veins and Atria: ?? >> Patent foramen ovale Right to left flow. ?? >> Normal Left Atrium >> Normal Right Atrium >> Normal Pulmonary venous connections At least one pulmonary vein is seen entering from each side. ?? >> Normal Systemic Veins ?? A-V Canal: ?? >> Normal Tricuspid Valve >> Normal Mitral Valve ?? Ventricles: ?? >> Left ventricular dysfunction, ruled out >> Right ventricular dysfunction global, ruled out ?? Conotruncus: ?? >> Normal Pulmonary Valve >> Normal Aortic Valve ?? Great Arteries: ?? >> Patent ductus arteriosus Right to left flow. ?? >> Normal Pulmonary Artery >> Normal Aorta >> Normal Aortic Arch ?? Pericardium: ?? >> Pericardial effusion, ruled out ?? Other: ?? >> echo ?? Measures: ?? LV Geometry: ?? Name ?Value ?Units ?Z-Score ?Min ?Max ?? LV [place] Diastolic ? 0.94 ? cm ? 0.27 ? 0.66 ?? 1.15 ?? Dimension ?? RV Geometry: ?? Name ?Value ?Units ?Z-Score ?Min ?Max ?? RV [place] Diastolic ? 1.02 ? cm ? 1.17 ? 0.66 ?? 1.11 ?? Dimension Casa's Name: WENDY VILLEGAS MD Date/time of reading: Jun 07 2013 - 2:05:31 PM Report created at 2:07:05 PM on June Report Number: Note:Study interpreted at [facility] unless otherwise noted Procedure Note 06/07/2013 Patient Name: CAROLYN SOSA Chart Number: [id number] Site Location: Date of Appt: June, 1:15 PM Echocardiogram Report Demographics and Visit Data: Due Date: 29-Sep-2013. Gestational age (weeks): 23.86. : 1980. Age: 32y/6m/6d. Reason for test: 648.00-Diabetes mellitus of mother, complicating , childbirth, or the puerperium, unspecifi. Person requesting test: JOHNNA SIU MD Procedure Description: [facility] ECHOCARDIOGRAM (PEDI CARD). echocardiogram at 24 weeks gestation. Normal chamber size and function. Normal arterial and venous connections. Normal Doppler study. No arrhythmias noted during the exam. No evidence of hydrops. The results of the study, its limitations and the limitations of echocardiography in general were reviewed. The inability to diagnose patent ductus arteriosus, some atrial defects, ventricular septal defects and coarctation was discussed. Further echocardiography is not recommended unless new concerns arise. Complete 2-dimensional study performed, with pulse/continuous wave Doppler samplings, and color flow Doppler imaging reviewed. Findings: Veins and Atria: >> Patent foramen ovale Right to left flow. >> Normal Left Atrium >> Normal Right Atrium >> Normal Pulmonary venous connections At least one pulmonary vein is seen entering from each side. >> Normal Systemic Veins A-V Canal: >> Normal Tricuspid Valve >> Normal Mitral Valve Ventricles: >> Left ventricular dysfunction, ruled out >> Right ventricular dysfunction global, ruled out Conotruncus: >> Normal Pulmonary Valve >> Normal Aortic Valve Great Arteries: >> Patent ductus arteriosus Right to left flow. >> Normal Pulmonary Artery >> Normal Aorta >> Normal Aortic Arch Pericardium: >> Pericardial effusion, ruled out Other: >> echo Measures: LV Geometry: Name Value Units Z-Score Min Max LV [place] Diastolic 0.94 cm 0.27 0.66 1.15 Dimension RV Geometry: Name Value Units Z-Score Min Max RV [place] Diastolic 1.02 cm 1.17 0.66 1.11 Dimension Casa's Name: BAKARI ROCK,WENDY Gautam Date/time of reading: Jun 07 2013 - 2:05:31 PM Report created at 2:07:05 PM on June Report Number: Note:Study interpreted at [facility] unless otherwise noted us Johnna Siu MD CARDIAC ECHO ORDERABLES Final Result * [facility] DETAILED (05/11/2013 8:53 EST) Anatomical Region Laterality Modality Other 05/11/2013 8:53 EST 05/11/2013 11:31 EST Narrative 05/11/2013 11:31 EST Indication: Maternal disease: Diabetes, pregestational type 1. History: Age: 32 years. : 6 Para: 3. Previous pregnancies: Children born at term: 3. Abortions: 2. LMP known. Current : Pre- data: Weight 118 lbs. Height 5 ft 1 ins. BMI 22.1. Dating: LMP: 12/22/2012 EDC: 09/28/2013 GA by LMP: 20w0d Current Scan on: 05/11/2013 EDC: 09/25/2013 GA by current scan: 20w3d Best Overall Assessment: 02/15/2013 EDC: 09/28/2013 Assessed GA: 20w0d The calculation of the gestational age by current scan was based on BPD, HC, TCD, AC, FL and HUM. The Best Overall Assessment is based on the LMP. General Evaluation: heart activity: Present. heart rate: 152 bpm. Presentation: cephalic. movement: visible. Amniotic Fluid: Normal. Cord: 3 Vessels. Placental cord insertion site: Normal. cord insertion site: Normal. Placenta: Anterior. Placenta Grade: Grade 1. Structure: normal. Anatomy Scan: Pitts gestation. Biometry: BPD 50.7 mm 93rd% 21w3d (20w6d to 22w0d) HC 175.5 mm 45th% 20w0d (18w4d to 21w4d) AC 155.6 mm 69th% 20w5d (20w0d to 21w3d) FL 32.1 mm 42nd% 20w0d (18w1d to 21w6d) OFD 59.7 mm 42nd% 19w6d TCD 20.4 mm 52nd% 20w0d HUM 31.2 mm 65th% 20w3d RAD 25.7 mm 33rd% 19w4d ULN 28.8 mm 47th% 20w0d TIB 28.1 mm 62nd% 20w3d FIB 27.0 mm 41st% 19w4d Foot 32.8 mm n/a 20w0d VENTRp 6.0 mm n/a CM 4.6 mm 37th% NUCHAL FOLD 5.42 mm NASAL BONE 5.8 mm n/a HC/AC Ratio 1.128 ??23rd% FL/AC Ratio 0.206 ??19th% BPD/FL Ratio 1.579 ??74th% BPD/OFD Ratio 0.849 ??>95th% EFW (lbs/oz) 0 lbs 12 ozs EFW (g) 351 g ??n/a Anatomy: Head: head shape appears normal. Brain: Cerebellum, choroid plexus, cisterna magna, lateral cerebral ventricles, midline falx and cavum septi pellucidi appear normal. Face: eyes normal, profile normal, nose normal, lip normal, palate normal. Spine: Cervical, thoracic, lumbar and sacral spine appear normal Neck / Skin: No neck masses seen. Thorax: No thoracic abnormalities detected. Heart: Four chamber heart and outflow tracts appear normal. Abdominal Wall: Normal cord insertion into the abdominal wall is seen. Gastrointestinal Tract: Stomach appears normal. Kidneys / Adrenal Glands: Bilateral kidneys appear normal. Bladder: bladder appears normal in size and shape. Genitalia: Female fetus. Extremities: Both upper and lower extremities are seen and appear normal. Skeleton: No evidence of skeletal abnormality detected. Summary of Ultrasound Findings: Transabdominal US. U/S machine: [employer] e8. U/S view: good. Genetic Sonogram: measured FL: 32.1 mm exp. FL: 36.5 mm measured HUM: 31.2 mm exp. HUM: 35.1 mm ratio FL/exp.FL: 0.88 ratio HUM/exp.HUM: 0.89 Nuchal fold normal. Pyelectasis absent. No hyperechogenic bowel. Echogenic intracardiac focus absent. Additional Marker: Nasal bone length: normal. Maternal Structures: Uterus: normal. Cervix: normal. Right Ovary: normal. Right Ovary size: 29 mm x 23 mm x 16 mm. Volume: 5.6 ml. Left Ovary: normal. Left Ovary size: 34 mm x 26 mm x 16 mm. Volume: 7.4 ml. Report Summary: Impression: [id number] Obstetrical ultrasound with and maternal evaluation, including detailed anatomic examination This is a pitts gestation. Biometry is consistent with menstrual dating. Anatomy appears normal as noted above; however, ultrasound cannot detect all anomalies. As per the [facility] guidelines, the following were evaluated and were normal: the cerebellum (including lobes and vermis), facial profile, the chest (including examination for masses, effusion, integrity of both sides of the diaphragm and lung parenchyma), abdomen for ascites, 12-long bones with normal architecture/position of limbs, hands and feet, placental insertion site of the umbilical cord and placenta for masses. The amniotic fluid volume is normal. There is trunk and extremity movement noted. The femur and humerus O:E ratios were flagged as abnormal by Viewpoint (this reporting package uses a reference by Lisy jimenes al), but it was normal based on the reference we have always used for long bone O:E ratios (Alicja et al. Obstet Gynecol 1996;87:953-8.) Our group has decided that when the Andrewely reference calls an O:E ratio abnormal but the Retaileos reference says it is normal, we will simply not reduce the trisomy 21 risk. We will continue to increase the risk if the latter reference finds the ratio abnormal. Recommendations: Follow-up as clinically indicated. Growth Overview: Date GA BPD [mm] HC [...] 351g , 0 lbs 12 ozs n/a% Procedure Note 05/11/2013 Indication: Maternal disease: Diabetes, pregestational type 1. History: Age: 32 years. : 6 Para: 3. Previous pregnancies: Children born at term: 3. Abortions: 2. LMP known. Current : Pre- data: Weight 118 lbs. Height 5 ft 1 ins. BMI 22.1. Dating: LMP: 12/22/2012 EDC: 09/28/2013 GA by LMP: 20w0d Current Scan on: 05/11/2013 EDC: 09/25/2013 GA by current scan: 20w3d Best Overall Assessment: 02/15/2013 EDC: 09/28/2013 Assessed GA: 20w0d The calculation of the gestational age by current scan was based on BPD, HC, TCD, AC, FL and HUM. The Best Overall Assessment is based on the LMP. General Evaluation: heart activity: Present. heart rate: 152 bpm. Presentation: cephalic. movement: visible. Amniotic Fluid: Normal. Cord: 3 Vessels. Placental cord insertion site: Normal. cord insertion site: Normal. Placenta: Anterior. Placenta Grade: Grade 1. Structure: normal. Anatomy Scan: Pitts gestation. Biometry: BPD 50.7 mm 93rd% 21w3d (20w6d to 22w0d) HC 175.5 mm 45th% 20w0d (18w4d to 21w4d) AC 155.6 mm 69th% 20w5d (20w0d to 21w3d) FL 32.1 mm 42nd% 20w0d (18w1d to 21w6d) OFD 59.7 mm 42nd% 19w6d TCD 20.4 mm 52nd% 20w0d HUM 31.2 mm 65th% 20w3d RAD 25.7 mm 33rd% 19w4d ULN 28.8 mm 47th% 20w0d TIB 28.1 mm 62nd% 20w3d FIB 27.0 mm 41st% 19w4d Foot 32.8 mm n/a 20w0d VENTRp 6.0 mm n/a CM 4.6 mm 37th% NUCHAL FOLD 5.42 mm NASAL BONE 5.8 mm n/a HC/AC Ratio 1.128 23rd% FL/AC Ratio 0.206 19th% BPD/FL Ratio 1.579 74th% BPD/OFD Ratio 0.849 >95th% EFW (lbs/oz) 0 lbs 12 ozs EFW (g) 351 g n/a Anatomy: Head: head shape appears normal. Brain: Cerebellum, choroid plexus, cisterna magna, lateral cerebral ventricles, midline falx and cavum septi pellucidi appear normal. Face: eyes normal, profile normal, nose normal, lip normal, palate normal. Spine: Cervical, thoracic, lumbar and sacral spine appear normal Neck / Skin: No neck masses seen. Thorax: No thoracic abnormalities detected. Heart: Four chamber heart and outflow tracts appear normal. Abdominal Wall: Normal cord insertion into the abdominal wall is seen. Gastrointestinal Tract: Stomach appears normal. Kidneys / Adrenal Glands: Bilateral kidneys appear normal. Bladder: bladder appears normal in size and shape. Genitalia: Female fetus. Extremities: Both upper and lower extremities are seen and appear normal. Skeleton: No evidence of skeletal abnormality detected. Summary of Ultrasound Findings: Transabdominal US. U/S machine: [employer] e8. U/S view: good. Genetic Sonogram: measured FL: 32.1 mm exp. FL: 36.5 mm measured HUM: 31.2 mm exp. HUM: 35.1 mm ratio FL/exp.FL: 0.88 ratio HUM/exp.HUM: 0.89 Nuchal fold normal. Pyelectasis absent. No hyperechogenic bowel. Echogenic intracardiac focus absent. Additional Marker: Nasal bone length: normal. Maternal Structures: Uterus: normal. Cervix: normal. Right Ovary: normal. Right Ovary size: 29 mm x 23 mm x 16 mm. Volume: 5.6 ml. Left Ovary: normal. Left Ovary size: 34 mm x 26 mm x 16 mm. Volume: 7.4 ml. Report Summary: Impression: [id number] Obstetrical ultrasound with and maternal evaluation, including detailed anatomic examination This is a pitts gestation. Biometry is consistent with menstrual dating. Anatomy appears normal as noted above; however, ultrasound cannot detect all anomalies. As per the [facility] guidelines, the following were evaluated and were normal: the cerebellum (including lobes and vermis), facial profile, the chest (including examination for masses, effusion, integrity of both sides of the diaphragm and lung parenchyma), abdomen for ascites, 12-long bones with normal architecture/position of limbs, hands and feet, placental insertion site of the umbilical cord and placenta for masses. The amniotic fluid volume is normal. There is trunk and extremity movement noted. The femur and humerus O:E ratios were flagged as abnormal by Viewpoint (this reporting package uses a reference by Lisy et al), but it was normal based on the reference we have always used for long bone O:E ratios (Alicja et al. Obstet Gynecol 1996;87:953-8.) Our group has decided that when the Bromely reference calls an O:E ratio abnormal but the Vintzileos reference says it is normal, we will simply not reduce the trisomy 21 risk. We will continue to increase the risk if the latter reference finds the ratio abnormal. Recommendations: Follow-up as clinically indicated. Growth Overview: Date GA BPD [mm] HC [...] 351g , 0 lbs 12 ozs n/a% Johnna Siu MD [facility] ORDERABLES Final Re sult * ALT (03/02/2013 9:46 EDT) ALT 22 9 - 52 U/L [facility] Blood specimen (specimen) 03/02/2013 9:46 EDT 03/02/2013 10:30 EDT Magdalena Arzate MD CHEMISTRY & BLOOD GAS ORDERABLES Final Result [facility] [address] [place] [address] * AST (03/02/2013 9:46 EDT) AST 15 15 - 46 U/L [facility] Blood specimen (specimen) 03/02/2013 9:46 EDT 03/02/2013 10:30 EDT Magdalena Arzate MD CHEMISTRY & BLOOD GAS ORDERABLES Final Result Performing Organization Address City/[facility] Co de Phone Number [facility] [address] [place] [address] * (ABNORMAL) CREATININE (03/02/2013 9:46 EDT) Creatinine 0.38(L) 0.52 - 1.04 mg/dl [facility] GFR, Calculated >60 >60 ml/min/1.7 3m2 [facility] Blood specimen (specimen) 03/02/2013 9:46 EDT 03/02/2013 10:30 EDT Magdalena Arzate MD CHEMISTRY & BLOOD GAS ORDERABLES Final Result Performing Organization Address City/[facility] de Phone Number [facility] [address] [place] [address] documented in this encounter Visit Diagnoses Diagnosis Diabetes in - Primary Diabetes mellitus of mother, complicating , childbirth, or the puerperium, unspecified as to episode of care documented in this encounter Care Teams Length Control Tester Relationship Specialty Start Date End Date Huseyin Zazueta MD [address] [place] [address] PCP - General 07/16/09 documented as of this encounter
--- OUTSIDE RECORDS SUMMARY | 2024-05-02 15:22 | XMS_ITS | Encounter Summary ---
Author Organization [facility] Address [address] [place] [address] Care Team Providers Care Metal Furniture Glazier Name Role Phone Huseyin Zazueta MD Primary Care Provider [phone] Reason for Visit * Reason Onset Date Comments Blood Sugar Problem 06/26/2012 Encounter Details Date Type Department Care Team (Late st Contact Info) Description 06/26/2012 Telephone [facility] Endocrinology - [address] [phone] Hayley Armendariz MD Blood Sugar Problem Social History Tobacco Use Types Packs/Day [...] Telephone Encounter - Lacie Nichole RN - 06/27/2012 1150 EST i called pt yobani 11:45 to see how she is doing. She reports trace ketones and last bg was in 150 range. Tolerating fluids well. Still feeling ill. Pt states that insulins are fresh. Plan: Increase current dose of lantus which is 18 units am and 10 units pm : Tonight take 12 units lantus If > 200 fasting tomorrow and still feeling ill take 20 units in am May need to also increase correction doses Call clinic with any issues Pt verbalized understanding. * Telephone Encounter - Hayley Armendariz MD - 06/26/20122058 EST Endo Fellow Register Repairer Patient with Type I DM called to report that BG was 450 mg/dl and she has large urinary ketones. Denies nausea, vomiting, fever, recent illness. BG was normal throughout the day, 150 mg/dl this morning. Currently on: Lantus 18 units AM + 10 units PM Novolog with meals based on 1:17 carb ratio. She just took 6 units to correct for BG 450. Advised: - Advised to drink plenty of water to keep herself hydrated. - Recheck BG in 2 hours to make sure it is coming down. - At any point if she is feeling nauseous, starts vomiting, is unable to keep herself hydrated; sheshould go to the ER. - Patient voiced understanding, she'll call me in 2 hours with BG. She prefers to try fixing it at home first since she has 3 kids at home, but promises to go to the ER if needed. documented in this encounter Plan of Treatment Not on file documented as of this encounter Visit Diagnoses Not on filedocumented in this encounter Care Teams Metal Furniture Glazier Relationship Specialty Start Date End Date Huseyin Zazueta MD [address] [place] [address] PCP - General 07/16/09 documented as of this encounter
--- OUTSIDE RECORDS SUMMARY | 2024-05-02 15:22 | XMS_ITS | Encounter Summary ---
Author Organization [facility] Address [address] [place] [address] Care Team Providers Care Audience Coordinator Name Role Phone Huseyin Zazueta MD Primary Care Provider [phone] Reason for Referral * TRACK MAINTAINER (Routine/Next Available) - Closed Specialty Diagnoses / Procedures Referred By Neva zacarias Referred To Contact Diagnoses with inconclusive viability Procedures CANAL SUPERINTENDENT US OB FIRST TRIMESTER TRANSVAGINAL Hamlet Cherry MD Phone: tel: fax: Referral ID Status Reason Start Date Expiration Date Visits Re quested Visits Authorized [id number] Closed 02/01/2013 1 1 Encounter Details Date Type Department Care Team (Late st Contact Info) Description 02/01/2013 Orders Only [facility] - [facility] [address] [place], [place] [phone] Hamlet Cherry MD [address] [facility] [place] [address] with inconclusive viability (Primary Dx) Social History Tobacco Use Types [...] Procedure Name Priority Date/Time Associated Diagnosis Comments CANAL SUPERINTENDENT US OB FIRST TRIMESTER TRANSVAGINAL Routine 02/15/2013 13:55 EDT with inconclusive viability documented in this encounter Results * CANAL SUPERINTENDENT US OB FIRST TRIMESTER TRANSVAGINAL (02/15/2013 13:55 EDT) Anatomical Region Laterality Modality Other 02/15/2013 13:5 5 EDT 02/15/2013 14:00 EDT Narrative 02/15/2013 14:00 EDT Indication: viability. History: Age: 32 years. LMP known. Dating: LMP: 12/22/2012 EDC: 09/28/2013 GA by LMP: 7w6d Current Scan on: 02/15/2013 EDC: 09/28/2013 GA by current scan: 7w6d Best Overall Assessment: 02/15/2013 EDC: 09/28/2013 Assessed GA: 7w6d The calculation of the gestational age by current scan was based on CRL. The Best Overall Assessment is based on the LMP. Early Assessment: Biometry: CRL 15.1 mm 89th% 7w6d (7w2d to 8w3d) Gestational Sac present. Yolk Sac present. Embryo present. Heart activity: Present. Heart rate: 142 bpm. Maternal Structures: Uterus: normal,anteverted. Cervix: normal. Right Ovary: normal. Left Ovary: Normal ??w/ Corpus Luteum. Comments: limited look @ ovaries ,seen on previous ultrasound Report Summary: Impression: 1st Trimester ,Transvaginal-limited OB scan +[id number] Single viable intrauterine (IUP) , size equals menstrual dates. EDC-09/28/2013. pt will f/u w/ MFM for OB care Procedure Note 02/15/2013 Indication: viability. History: Age: 32 years. LMP known. Dating: LMP: 12/22/2012 EDC: 09/28/2013 GA by LMP: 7w6d Current Scan on: 02/15/2013 EDC: 09/28/2013 GA by current scan: 7w6d Best Overall Assessment: 02/15/2013 EDC: 09/28/2013 Assessed GA: 7w6d The calculation of the gestational age by current scan was based on CRL. The Best Overall Assessment is based on the LMP. Early Assessment: Biometry: CRL 15.1 mm 89th% 7w6d (7w2d to 8w3d) Gestational Sac present. Yolk Sac present. Embryo present. Heart activity: Present. Heart rate: 142 bpm. Maternal Structures: Uterus: normal,anteverted. Cervix: normal. Right Ovary: normal. Left Ovary: Normal w/ Corpus Luteum. Comments: limited look @ ovaries ,seen on previous ultrasound Report Summary: Impression: 1st Trimester ,Transvaginal-limited OB scan +[id number] Single viable intrauterine (IUP) , size equals menstrual dates. EDC-09/28/2013. pt will f/u w/ MFM for OB care us Hamlet Cherry MD IMG US CANAL SUPERINTENDENT ORDERABLES Final Re sult documented in this encounter Visit Diagnoses Diagnosis with inconclusive viability- Primary documented in this encounter Care Teams Audience Coordinator Relationship Specialty Start Date End Date Huseyin Zazueta MD [address] [place] [address] PCP - General 07/16/09 documented as of this encounter
--- OUTSIDE RECORDS SUMMARY | 2024-05-02 15:22 | XMS_ITS | Encounter Summary ---
Author Organization [facility] Address [address] [place] [address] Care Team Providers Care Senior Finance Manager Name Role Phone Huseyin Zazueta MD Primary Care Provider [phone] Encounter Details Date Type Department Care Team (Latest Contact Info) Description 02/19/2013 10:29 EDT - 02/19/2013 23:59 EDT Hospital Encounter [address] [address] Unknown, Provider, Carlin Woody MD [address] [place] [phone] Discharge Disposition: Auto Discharge Social History [...] ULTRA TEST) test strips 12 Strips by [facility] (non-drug; combo route) route daily. ICD-9: 648.03 400 Each 11 01/26/2013 4 glucagon (GLUCAGON EMERGENCY) 1 mg injection Inject 1 mg into the skin once for 1 dose. 2 Each 6 07/07/2012 3 glucagon (GLUCAGON EMERGENCY) 1 mg injection Use as directed. 2 Each 6 07/07/2012 3 insulin aspart (NOVOLOG) 100 unit/mL CartridgeIndicatio ns:Type 1 diabetes mellitus ([facility]) Uses 8:1 CHO ratio Usually 5-7 [...] Name Priority Date/Time Associated Diagnosis Comments URINE INFORMATION Routine 02/19/2013 10: 31 EDT documented in this encounter Results * URINE INFORMATION (02/19/2013 10:31 EDT) Period 23.5 hrs [facility] Specimen Volume 2050 mls [facility] 02/19/2013 10:3 1 EDT 02/19/2013 11:20 EDT us Carlin Manriquez MD URINALYSIS ORDERABLES Final Re sult Performing Organization Address City/State/[facility] Co de Phone Number [facility] [address] [place] [address] documented in this encounter Visit Diagnoses Not on filedocumented in this encounter Care Teams Senior Finance Manager Relationship Specialty Start Date End Date Huseyin Zazueta MD [address] [place] [address] PCP - General 07/16/09 documented as of this encounter
--- OUTSIDE RECORDS SUMMARY | 2024-05-02 15:22 | XMS_ITS | Encounter Summary ---
Author Organization [facility] Address [address] [place] [address] Care Team Providers Care Chemical Processing Supervisor Name Role Phone Huseyin Zazueta MD Primary Care Provider [phone] Reason for Visit * Reason Comments Diabetes Encounter Details Date Type Department Care Team (Latest Contact Info) Description 01/26/2013 15:[address] [facility] Endocrinology - [address] [address] Carlin Manriquez MD [address] [place] [address], [address] [phone] Type I (juvenile type) diabetes mellitus without mention of complication, uncontrolled (Primary Dx); Abnormal maternal glucose tolerance, antepartum; Diabetes mellitus, antepartum Social History Tobacco Use [...] Sign Reading Time Taken Comments Blood Pressure 92/52 01/26/2013 1453 EDT Pulse 88 01/26/2013 1453 EDT Temperature - - Respiratory Rate - - Oxygen Saturation - - Inhaled Oxygen Concentration - - Weight 54 kg (119 lb) 01/26/2013 1453 EDT Height 154.9 cm (5' 1) 01/26/2013 1453 EDT Body Mass Index 22.48 01/26/2013 1453 EDT documented in this encounter Patient Instructions * Patient Instructions* Carlin Manriquez - 01/26/2013 15:29 EDT Patient education: - We discussed importance of optimal glycemic control to prevent both maternal and complications. Maternal complications include excessive weight gain, pre-eclampsia and increased need for C-sections. Long-term maternal complications include retinopathy, nephropathy, neuropathy and CAD. complications include macrosomia, traumatic vaginal delivery and hypoglycemia/respiratorydistress syndrome. Pharmacotherapy: - Lantus insulin 25 units each morning (decreased from 27) - Novolog 1:10 or even 1:12 with meals (may need to back off even more, and the carb ratio may be different depending on the amount of carbs you eat at a meal - that is, 20-30 grams may need 1:12 while 60-70 grams may be a 1:8 meal) Home glucose monitoring: - Check FSBG 4 times daily: fasting, 1-hour or 2-hours postprandial - Glucose targets are as follows: (a) Fastin or less (b) 1-hour postprandial: 140 or less (c) 2-hours postprandial: 120 or less - Patient was advised to call/fax glucose readings on a weekly basis to allow adjustments in insulin doses. Lifestyle modification: - Patient will meet with a dietitian today to discuss medical nutrition therapy. We briefly discussed observing a 3 meal - 3 snack regimen during , which allows for reasonable carbohydrate restriction while minimizing risk of starvation ketosis. - Patient was also advised to start a simple exercise program such as walking to help improve glycemic control. documented in this encounter Ordered Prescriptions Prescription Sig Dispense Quantity Refills Last Filled Start Date End Date lancets (ONE TOUCH SURESOFT LANCING DEV) Test glucose 12 times daily: ICD-9 648.03 400 Each 01/26/2013 3 blood glucose (ONE TOUCH ULTRA TEST) test strips 12 Strips by misc (non-drug; combo route) route daily. ICD-9: 648.03 400 Each 01/26/2013 4 documented in this encounter Progress Notes * Carlin Manriquez - 01/26/2013 1513 EDT Endocrinology Follow-up Note Date of Consultation: 01/26/2013 Reason for Consultation: Management of antepartum type 1 diabetes mellitus Problem List: 1. Antepartum type 1 diabetes mellitus 2. Intrauterine (current gestational age: 5 weeks 0 days by date of LMP) 3. LMP 12/22/2012 HPI: Carolyn Sosa is a 32 y.o. female seen in follow-up in the diabetes clinic for management of antepartum type 1 diabetes mellitus with a newly discovered . Hayley has had diabetes since 07/2009, so just over 3 years. She has 3 children at home and is just she is . In fact, she is sonewly but she is not been seen in [employer] and does not have a gestational age or an estimated due date based on US, but based on LMP, she is 5 weeks 0 days with an JELANI of 09/28/2013. Hayley hasbeen doing better control and her blood sugars over the past several weeks than she ever did beforethat. She had been working on this prior to conception, despite the fact that this was not a planned . Today Hayley is very happy. She has 3 children, and her boyfriend currently has 4 children, so this will make for a large family, but she is excited. She continues to work for [employer] and commutes a long distance back and forth between home and work, which is difficult. She continues to work with her ex- on legal ramifications of having her move her children further away from him. Her current diabetes regimen includes Lantus insulin 27 units each morning, and NovoLog insulin with an insulin to carb ratio of 1:8. Recently that has been too much insulin and she has had some hypoglycemia into the 50s and 60s. She has 100% hypoglycemia awareness and has not had any severe evidence. She has glucagon at home and both her oldest child, and her boyfriend both know how to use it. She is checking her glucose upwards of 12 times daily in an effort to keep her glucoses tightly regulated and to avoid hypoglycemia. She is having mostly postprandial hypoglycemia with occasional nocturnal hypoglycemia. In addition, she has some nausea and decreased carbohydrate tolerance. Results for CAROLYN SOSA ( ) as [...] 6 current LMP: 12/22/2012 Current gestational age: 5 weeks 0 days by dates, uncertain of US Estimated delivery date: 09/28/2013 Pre- weight: 123 lb Current weight: 119 lb 2. Diabetes History: When diagnosed: 07/2009 Previous treatment: always on insulin Current treatment: Lantus 27 un qam, Novolog 1:8 with meals, but frequent hypoglycemia on this regimen and has alreadybegun to decrease doses on her own Treatment adherence: Excellent, especially recently Home glucose monitoring: Fastin - 240, many in the high 90s 2-hours postbreakfast:80-254, most under 120 2-hours postlunch: 50-228, most under 145 2-hours postdinner: 62-299, most under 170 Hypoglycemia/availability of glucagon emergency kit at home: has glucagon and boyfriend and oldest daughter know how to use it, has never had to use it HbA1c trend: HbA1c //: //: //: Lab Results Component Value Date HGBA1C 8.6 11/22/2012 HGBA1C 9.3* 08/18/2012 HGBA1C 9.4* 05/09/2012 HGBA1C 9.0* 12/28/2011 HGBA1C 9.8* 08/27/2011 Fructosamine trend: not checked yet Weight: 119 lb now, down 4 pounds compared to before Eating habits: Mostly 3 meals daily, some snacks, has nausea currently Physical activity: Fairly active, walks, bikes, does recreational exercise with children and boyfriend Previous referral to dietitian/visual educator: Sees Lacie Nichole and Pam Miranda [...] Outpatient Prescriptions Medication Sig Dispense Refill ??? insulin aspart (NOVOLOG) 100 unit/mL Cartridge [...] reviewed and are negative. Physical Examination: BP 92/52 Pulse 88 Ht 154.9 cm (61) Wt 53.978 kg (119 lb) BMI 22.48 kg/m2 Constitutional: Oriented to person, place, and [...] Data: Lab Results Component Value Date HGBA1C 8.6 11/22/2012 HGBA1C 9.3* 08/18/2012 HGBA1C 9.4* 05/09/2012 HGBA1C 9.0* 12/28/2011 HGBA1C 9.8* 08/27/2011 Lab Results Component Value Date NA 138 [...] started prior to , which is outstanding. We will check an A1c and a fructosamine today, I have given her glycemic goals today, and have explained thatgeorgina can expect some continued mild hypoglycemia during this first trimester, but should expect changes going forward. She has Lacie Nichole's e- mail address as well as mine, and we will send us glucoses weekly. Patient education: - We discussed importance of optimal glycemic control to prevent both maternal and complications. Maternal complications include excessive weight gain, pre-eclampsia and increased need for C-sections. Long-term maternal complications include retinopathy, nephropathy, neuropathy and CAD. complications include macrosomia, traumatic vaginal delivery and hypoglycemia/respiratorydistress syndrome. Pharmacotherapy: - Lantus: reduce from 27 to 25 un daily to avoid hypoglycemia - Novolog: change carb ratio from 1:8 to 1:10 or even 1:12 to avoid hypoglycemia, and use less withlower carb meals and more with higher carb meals Labs: - HbA1c (plasma) today - Fructosamine today - 24 hr urine protein in the next 1-2 weeks as baseline Home glucose monitoring: - Check FSBG 4 times daily: fasting, 1-hour or 2-hours postprandial - Glucose targets are as follows: (a) [...] eye examination: done in 11/2012 Plan: 1. Reduce Lantus from 27 to 25 un as above (morning injections) 2. Reduce carb ratio from 1:8 to 1:10 or even 1:12 to avoid hypoglycemia, may need to give 1/2 doseprior to meal and reserve other half dose for during or after meal to be sure she eats enough to warrant full dose 3. Check FSBG 4 times daily: fasting, 1-hour or 2-hours postprandial. 4. Glucose targets: (a) Fastin or less (b) 1-hour postprandial: 140 or less (c) 2-hours postprandial: 120 or less 5. Call/fax glucose readings on a weekly basis. 6 Follow-up: RTC on 02/15/2013 (already scheduled) and schedule in [facility] joint clinic as well Carlin Manriquez MD documented in this encounter Plan of Treatment Not on file documented as of this encounter Results * HEMOGLOBIN A1C (04/27/2013 10:00 EST) Hemoglobin A1C 7.0 % [facility] Comment: Reference Range: <5.7% Normal 5.7-6.4% Increased risk for diabetes =>6.5% Diagnostic for diabetes (if confirmed) The A1c goal for non adults in general is <7%. The A1c goal for selected patients may be significantly lower than 7% if this can be achieved without significant hypoglycemia or other adverse effects of treatment. Est Avg Glucose 154 mg/dl [facility] Comment: eAG represents the A1c result expressed as average glucose in mg/dl. Blood specimen (specimen) 04/27/2013 10:00 EST 04/27/2013 15:28 EST Carlin Manriquez MD CHEMISTRY & BLOOD GAS ORDERABL ES Final Result Performing Organization Address [facility] de Phone Number [facility] [address] [place] [address] * HEMOGLOBIN A1C (03/16/2013 14:28 EDT) Hemoglobin A1C 7.5 % [facility] Comment: Reference Range: <5.7% Normal 5.7-6.4% Increased risk for diabetes =>6.5% Diagnostic for diabetes (if confirmed) The A1c goal for non adults in general is <7%. The A1c goal for selected patients may be significantly lower than 7% if this can be achieved without significant hypoglycemia or other adverse effects of treatment. Est Avg Glucose 169 mg/dl [facility] Comment: eAG represents the A1c result expressed as average glucose in mg/dl. Blood specimen (specimen) 03/16/2013 14:28 EDT 03/16/2013 18:54 EDT Carlin Manriquez MD CHEMISTRY & BLOOD GAS ORDERABL ES Final Result Performing Organization Address [facility] de Phone Number [facility] [address] [place] [address] * (ABNORMAL) TOTAL PROTEIN, URINE 24HR (02/19/2013 10:31 EDT) Tot Prot,Ur Random 9 mg/dl [facility] Tot Prot,24h Calc. 185(H) <150 mg/24hr [facility] Urine specimen (specimen) URINE / Unknown 02/19/2013 10:31 EDT 02/19/2013 11:20 EDT Carlin Manriquez MD URINALYSIS ORDERABLES Final Re sult Performing Organization Address [facility] de Phone Number [facility] [address] [place] [address] * HEMOGLOBIN A1C (01/26/2013 15:59 EDT) Hemoglobin [...] of treatment. Est Avg Glucose 194 mg/dl [facility] Comment: eAG represents the A1c result expressed as average glucose in mg/dl. Blood specimen (specimen) 01/26/2013 15:59 EDT 01/26/2013 18:43 EDT Carlin Manriquez MD CHEMISTRY & BLOOD GAS ORDERABL ES Final Result Performing Organization Address [facility] Co de Phone Number [facility] [address] [place] [address] documented in this encounter Visit Diagnoses Diagnosis Type I (juvenile type) diabetes mellitus without mention of complication, uncontrolled- Primary Abnormal maternal glucose tolerance, antepartum Diabetes mellitus, antepartum(648.03) Diabetes mellitus, antepartum documented in this encounter Discontinued Medications Medication Sig Discontinue Reason Start Date End Da te blood glucose test strips Brand: Freestyle Lite. Test 6 times daily Reorder 12/29/2011 01/26/2013 documented as of this encounter Care Teams Chemical Processing Supervisor Relationship Specialty Start Date End Date Huseyin Zazueta MD [address] [place] [address] PCP - General 07/16/09 documented as of this encounter
--- OUTSIDE RECORDS SUMMARY | 2024-05-02 15:22 | XMS_ITS | Encounter Summary ---
Author Organization [facility] Address [address] [place] [address] Care Team Providers Care Sensitized Paper Tester Name Role Phone Huseyin Zazueta MD Primary Care Provider [phone] Reason for Visit * Reason Onset Date Comments Appointment Related 01/24/2013 Encounter Details Date Type Department Care Team (Late st Contact Info) Description 01/24/2013 Telephone [facility] Endocrinology - [address] [phone] Lacie Nichole RN CDE Appointment Related Social [...] * Telephone Encounter - Carlin Manriquez - 01/24/2013 1131 EDT Hey, This patient has T1DM and newly and needs to get in to the [facility] clinic. She is seeing me this coming Tuesday, 01/26, so 2 weeks after that (or thereabouts) is fine. Thanks * Telephone Encounter - Lacie Nichole RN - 01/24/2013 1116 EDT email from pt: Khurram Medellin, I wanted to check in with you regarding the status of my referral to the Maternal Medicine place at [facility]. I haven't heard anything yet about an appointment and I didn't know if I needed to callthem directly or not? Thank you, Hayley This is my reply: Good morning, Hope you are feeling well. I will check with Dr Manriquez about the referral but I am sure that she will discuss it with you at your visit on Tuesday. Lacie Navarro documented in this encounter Plan of Treatment Not on file documented as of this encounter Visit Diagnoses Not on filedocumented in this encounter Care Teams Sensitized Paper Tester Relationship Specialty Start Date End Date Huseyin Zazueta MD [address] [place] [address] PCP - General 07/16/09 documented as of this encounter
--- OUTSIDE RECORDS SUMMARY | 2024-05-02 15:22 | XMS_ITS | Encounter Summary ---
Author Organization [facility] Address [address] [place] [address] Care Team Providers Care Mycology Teacher Name Role Phone Huseyin Zazueta MD Primary Care Provider [phone] Reason for Visit * Reason Onset Date Comments 01/22/2013 Encounter Details Date Type Department Care Team (Late st Contact Info) Description 01/22/2013 Telephone [facility] Endocrinology - [address] [phone] Lacie Nichole, RN CDE Social History Tobacco Use Types Packs/Day Years [...] Encounter - Lacie Nichole RN - 01/22/2013 4408 EDT Pt called. i gave her general guidelines for bg control during pregancy and also advised her about hypoglycemia during first trimester. Her current insulin doses: lantus 25 units am and novolog 1:7 carb ratio, no formal correction ratio The blood sugars that she sent earlier are up to 8/15 so she will email me the current ones which iwill forward to Dr Manriquez. Pt is available anytime this week for appt except for Tuesday afternoon i advised pt that one of us will be calling her tomorrow with appt. Pt verbalized understanding. * Telephone Encounter - Seema Cooley - 01/22/2013 1401 EDT Patient calling to speak with Lacie * Telephone Encounter - Lacie Nichole RN - 01/22/2013 1044 EDT email fro documented in this encounter Plan of Treatment Not on file documented as of this encounter Visit Diagnoses Not on filedocumented in this encounter Care Teams Mycology Teacher Relationship Specialty Start Date End Date Huseyin Zazueta MD [address] [place] [id number] PCP - General 07/16/09 documented as of this encounter
--- OUTSIDE RECORDS SUMMARY | 2024-05-02 15:23 | XMS_ITS | Encounter Summary ---
Author Organization [facility] Address [address] [place] [address] Care Team Providers Care Glass Scullion Name Role Phone Huseyin Zazueta MD Primary Care Provider [phone] Reason for Visit * Reason Onset Date Comments Medications Refill 12/29/2011 Encounter Details Date Type Department Care Team (Late st Contact Info) Description 12/29/[address] [facility] Endocrinology - [address] [address] Carlin Manriquez MD [address] [place] [phone] Medications Refill Social History Tobacco Use [...] Date insulin pen needles 31G x 5/16 Use 5 daily. 500 Each 3 12/29/2011 02/27/2013 documented in this encounter Plan of Treatment Not on file documented as of this encounter Visit Diagnoses Not on filedocumented in this encounter Care Teams Glass Scullion Relationship Specialty Start Date End Date Huseyin Zazueta MD [address] [facility] [place] [address] PCP - General 07/16/09 documented as of this encounter
--- OUTSIDE RECORDS SUMMARY | 2024-05-02 15:23 | XMS_ITS | Encounter Summary ---
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, Outpatient DM w/o complication type I, uncontrolled Social History Tobacco Use Types Packs/Day Years Used Date Smoking Tobacco: Every Day Cigarettes Smokeless Tobacco: Never Alcohol Use Standard Drinks/Week Comments No 0 (1 standard drink = 0.6 oz pur e alcohol) Comments No Sex and Gender Information Value Date Recorded Sex Assigned at Not on file Legal Sex Female 18:29 EST Gender Identity Not on file Sexual Orientation Not on file documented as of this encounter Plan of Treatment Not on file documented as of this encounter Procedures Procedure Name Priority Date/Time Associated Diagnosis Comments URINE [id number] RATIO (ACR) Routine 09/28/2010 11:12 EDT DM w/o complication type I, uncontrolled LIPID PROFILE (INCLUDES CHOLESTEROL, TRIGLYCERIDES, HDL, LDL) Routine 09/28/2010 11:12 EDT DM w/o complication type I, uncontrolled COMPREHENSIVE METABOLIC PANEL (CMP) Routine 09/28/2010 11:12 EDT DM w/o complication type I, uncontrolled documented in this encounter Results * (ABNORMAL) COMPREHENSIVE METABOLIC PANEL (CMP) (09/28/2010 11:12 EDT) Potassium 4.0 3.5 - 5.0 mEq/L [facility] Sodium 138 136 - 145 mEq/L [facility] Chloride 99 96 - 110 mEq/L [facility] CO2 27 24 - 32 mEq/L [facility] Total Alkaline Phosphatase 67 38 - 126 U/L [facility] Bilirubin, Total <0.5 0.2 - 1.3 mg/dl [facility] AST 17 15 - 46 U/L [facility] ALT 15 9 - 52 U/L [facility] Albumin 4.1 3.4 - 4.9 g/dl [facility] Total Protein 6.8 6.5 - 8.3 g/dl [facility] Creatinine 0.51(L) 0.7 - 1.5 mg/dl [facility] GFR, Calculated >60 ml/min/1.7 3m2 [facility] BUN 8(L) 10 - 26 mg/dl [facility] Calcium 9.5 8.5 - 10.5 mg/dl [facility] Calculated Calcium 9.8 8.5 - 10.5 mg/dl [facility] Glucose, Serum 237(H) 70 - 100 mg/dl [facility] Fasting? No [facility] Blood specimen (specimen) 09/28/2010 11:12 EDT 09/28/2010 11:13 EDT us Jeb Daigle MD CHEMISTRY & BLOOD GAS TOO PATEL Final Result [facility] [address] [place] [address] * MICROALBUMIN (09/28/2010 11:12 EDT) Creatinine, Urn [place] 33.7 mg/dl [facility] Ur Albumin mg/dl 0.5 <1.9 mg/dl [facility] Ur Alb ug/mg Crea 14.8 ug/mg Crea [facility] Comment: Normal: ??<30 ug/mg Creat Microalbuminuria: ??30-300 ug/mg Creat Clinical albuminuria: ??>300 ug/mg Creat Urine specimen (specimen) 09/28/2010 11:12 EDT 09/28/2010 11:13 EDT Jeb Daigle MD CHEMISTRY & BLOOD GAS TOO PATEL Final Result Performing Organization Address [facility] de Phone Number [facility] [address] [place] [address] * LIPID PROFILE (INCLUDES CHOLESTEROL, TRIGLYCERIDES, HDL, LDL) (09/28/2010 11:12 EDT) Cholesterol 181 mg/dl [facility] Comment:Desirable:<200 Borde rline High:200-239 High:>sx=128 Triglycerides 96 35 - 160 mg/dl [facility] HDL 49 mg/dl [facility] Comment:Low:<40 High(Desirab le):>or=60 LDL, Calculated 113 mg/dl [facility] Comment: Optimal:<100 Above optimal:100-129 Borderline High:130-159 High:160-189 Very High:>qs=436 Chol/HDL Ratio 3.7 [facility] Fasting? No [facility] Blood specimen (specimen) 09/28/2010 11:12 EDT 09/28/2010 11:13 EDT Jeb Daigle MD CHEMISTRY & BLOOD GAS TOO PATEL Final Result Performing Organization Address [facility] de Phone Number [facility] [address] [place] [address] documented in this encounter Visit Diagnoses Diagnosis Type I (juvenile type) diabetes mellitus without mention of complication, uncontrolled documented in this encounter Care Teams Fishing Guide Relationship Specialty Start Date End Date Huseyin Zazueta MD [address] [place] [address] PCP - General 07/16/09 documented as of this encounter
--- OUTSIDE RECORDS SUMMARY | 2024-05-02 15:23 | XMS_ITS | Encounter Summary ---
Author Organization [facility] Address [address] [place] [address] Care Team Providers Care Repossession Agent Name Role Phone Huseiyn Zazueta MD Primary Care Provider [phone] Reason for Visit * Reason Comments Diabetes ipro Encounter Details Date Type Department Care Team (Late st Contact Info) Description 01/06/2011 16:30 EDT Nurse Only [facility] Endocrinology - [address] [address] Unknown, Provider, Matilde De La Garza MD PhD [address] [place] [address] [address] [place] [address] Raffaele Nichole RN CDE Social History Tobacco Use Types [...] as of this encounter Progress Notes * Raffaele Nichole RN - 01/06/2011 1711 EDT Pt is here for ipro placement for diagnostic purposes No problem noted with ipro insertion. Pt is instructed on the following: sbgm qid Removed sensor at once if site becomes painful, red, swollen, or any discharge Keep insulin injections/pump site at least 3 inches away from sensor Remove sensor in 3-4 days and keep transmitter attached and return sensor with attached transmitterand diary or meter Call raffaele with any questions documented in this encounter Plan of Treatment Not on file documented as of this encounter Visit Diagnoses Not on filedocumented in this encounter Care Teams Repossession Agent Relationship Specialty Start Date End Date Huseyin Zazueta MD [address] [place] [address] PCP - General 07/16/09 documented as of this encounter
--- OUTSIDE RECORDS SUMMARY | 2024-05-02 15:23 | XMS_ITS | Encounter Summary ---
Author Organization [facility] Address [address] [place] [address] Care Team Providers Care Taker Off Name Role Phone Huseyin Zazueta MD Primary Care Provider [phone] Reason for Visit * Reason Comments Diabetes Mellitus Type 1 Encounter Details Date Type Department Care Team (Latest Contact Info) Description 09/28/2010 10:45 EDT Office Visit [facility] Endocrinology - [facility] [address] [place] [address] Jeb Daigle MD [address] [place] [address] [address] [place] [address] DM w/o complication type I, uncontrolled (Primary Dx); Pure hypercholesterolemia; DM manif NEC type I, uncontrolled Social History Tobacco Use [...] Reading Time Taken Comments Blood Pressure 102/60 09/28/2010 1016 EDT Pulse 84 09/28/2010 1016 EDT Temperature - - Respiratory Rate - - Oxygen Saturation - - Inhaled Oxygen Concentration - - Weight 54 kg (119 lb) 09/28/2010 1016 EDT Height 154.9 cm (5' 1) 09/28/2010 1016 EDT Body Mass Index 22.48 09/28/2010 1016 EDT documented in this encounter Progress Notes * Jeb Daigle MD - 09/28/[address] [facility] Diabetes Follow-Up Note CHIEF COMPLAINT: Carolyn Sosa presents in clinic today with: 1. DM w/o complication type I, uncontrolled (250.03) 2. Pure hypercholesterolemia (272.0) 3. DM manif NEC type I, uncontrolled (250.83) Carolyn Sosa has had diabetes for late 2008 HPI: Carolyn Sosa recently has a history of being in poor glycemic control. Patient has a history of being compliant most of the time with medical therapy. Patient's home regimen consists of has a current medication list which includes simvastatin, insulin PLAN was Lantus 18 am and 10 qhs ( not missing) , and insulin aspart 1:7 carb ratio ( states she's doing this ) - problem is still snacking Supplemental Not doing this routinely Only before meals - add NOVOLOG 150 - 200 add 2 units 200-250 4units > 250 add 6 units BUT NOT IMPROVING !!! But did have flu X 1 week And not taking simvastatin Patient's home regimen consists of has a current medication list which includes insulin aspart, glucagon, simvastatin, and insulin glargine. Carolyn Sosa reports the following: SYMPTOM YES or NO Blurry vision No Increased fatigue No Polydipsia/increased drinking No Polyphagia No Polyuria No Poor wound healing No Weight loss No Vaginitis X2 States its better Nocturia No Hypoglycemia Yes - afternoon - related to exercise ??? Diarrhea No Constipation No Shortness of breath/chest pain No Early satiation No Numbness/tingling of extremities No The patient has experienced the following acute complications: hypoglycemia - mild, occur now that she is more active . Eating habits: adherent to diabetic diet. Patient's weight has been stable. Wt Readings from Last 3 Encounters: 07/07/10 51.256 kg (113 lb) 05/20/10 51.256 kg (113 lb) 05/04/10 51.256 kg (113 lb) Patient exercise level is: moderately active. History Substance Use Topics ??? Smoking status: Current Everyday Smoker -- 1.0 packs/day ??? Smokeless tobacco: Never Used ??? Alcohol Use: No Glucose monitoring: QID. Home Blood Glucoses Running: BGs are high in the morning (average hi 100s), BGs are high around lunch (average 200-250), BGs are high around dinner (average 200-250) and BGs are high at HS (average 200-250). PHYSICAL EXAMINATION: Vitals: BP 102/60 Pulse 84 Ht 154.9 cm (61) Wt 53.978 kg (119 lb) BMI 22.48 kg/m2 BMI: Body mass index is 22.48 kg/(m^2). Funduscopic: no microaneurysms, exudates, hemorrhages or mary anne-vascularizations Skin: normal Feet: good hygiene of the nails with no hypertrophy or onychomycosis. There are no osseous deformities or open lesions. Vibratory sense is intact. No pedal edema. Post Tibial and Dorsalis Pedis: normal LABS: today 10.9% Results for CAROLYN SOSA ( ) as of 09/28/2010 10:37 Ref. Range 09/19/2009 09:26 12/18/2009 09:40 02/20/2010 09:49 05/04/2010 11:08 07/07/2010 09:14 POCT Hgb A1C No range found 9.1 8.7 Hemoglobin A1c, POC Latest Range: High: 5.7 10.0 (A) 11.2 (A) 11.0 (A) : Lab Results Component Value Date HGBA1C 11.0* 07/07/2010 Lab Results Component Value Date CHOL 212 02/20/2010 HDL 40 02/20/2010 LDLBASE 151 02/20/2010 TRIG 107 02/20/2010 CHOLHDL 5.3 02/20/2010 Lab Results Component Value Date BUN 6* 02/20/2010 CREATININE 0.50* 02/20/2010 NA 139 02/20/2010 K 4.1 02/20/2010 Lab Results Component Value Date ALT 17 02/20/2010 Lab Results Component Value Date LABALBU 4.1 02/20/2010 UCREA 18.1 02/20/2010 MICRALBCRRAT Value: Unable to calculate ug/mg Crea result. Normal: <30 ug/mg Creat Microalbuminuria: 30-300 ug/mg Creat Clinical albuminuria: >300 ug/mg Creat 02/20/2010 ASSESSMENT: 1. DM w/o complication type I, uncontrolled (250.03) still doing miserably !!!!!!! This young womanremains a problem as to why she is not helping herself and this was discussed with her 2. Pure hypercholesterolemia (272.0) 3. DM manif NEC type I, uncontrolled (250.83) cannot explain this either - 1:7 ratio and now 1:5 ratio is a lot for 113# woman Patient does demonstrate knowledge of diabetes and expectations. Patient does understand medication regimen. Barriers to adherence: something is not right !! she insusts she is taking prandial doses - though she does take supplemental. Goals: Systolic blood pressure less than 130. And diastolic blood pressure less than 80. Hemoglobin A1C less than 7%. LDL cholesterol: 70 to 99. PLAN: Medications: Recommend aspirin daily. Insulin: Insulin stabilization is required: try 1:5 ration for all meals . Glucose monitoring QID. Referred to diabetic education program. Patient education already provided. Referred to watch crystal edge grinder no. Patient referred to eye patient care for annual dilated eye exam. Lifestyle modifications: recommend compliance with a diabetic diet and take shots Return in three months. Jeb Daigle MD 09/28/2010 10:43 documented in this encounter Plan of Treatment Not on file documented as of this encounter Procedures Procedure Name Priority Date/Time Associated Diagnosis Comments POCT HEMOGLOBIN A1C Routine 09/28/2010 1 0:32 EDT DM w/o complication type I, uncontrolled [...] LAB ALT 15 9 - 52 U/L [facility] Albumin 4.1 3.4 - 4.9 g/dl [facility] Total Protein 6.8 6.5 - 8.3 g/dl [facility] Creatinine 0.51(L) 0.7 - 1.5 mg/dl [facility] GFR, Calculated >60 ml/min/1.7 3m2 [facility] BUN 8(L) 10 - 26 mg/dl [facility] Calcium 9.5 8.5 - 10.5 mg/dl [facility] Calculated Calcium 9.8 8.5 - 10.5 mg/dl [facility] Glucose, Serum 237(H) 70 - 100 mg/dl [facility] Fasting? No [facility] Blood specimen (specimen) 09/28/2010 11:12 EDT 09/28/2010 11:13 EDT Jeb Daigle MD CHEMISTR[facility] Final Result Performing Organization Address [facility] Co de Phone Number [facility] [address] [place] [address] * MICROALBUMIN (09/28/2010 11:12 EDT) Creatinine, Urn [place] 33.7 mg/dl [facility] Ur Albumin mg/dl 0.5 <1.9 mg/dl [facility] Ur Alb ug/mg Crea 14.8 ug/mg Crea [facility] Comment: Normal: ??<30 ug/mg Creat Microalbuminuria: ??30-300 ug/mg Creat Clinical albuminuria: ??>300 ug/mg Creat Urine specimen (specimen) 09/28/2010 11:12 EDT 09/28/2010 11:13 EDT Jeb Daigle MD CHEMISTRY & BLOOD GAS ORDE RABLES Final Result Performing Organization Address [facility] Co de Phone Number [facility] [address] [place] [address] * LIPID PROFILE (INCLUDES CHOLESTEROL, TRIGLYCERIDES, HDL, LDL) (09/28/2010 11:12 EDT) Cholesterol 181 mg/dl [facility] Comment:Desirable:<200 Borde rline High:200-239 High:>xd=898 Triglycerides 96 35 - 160 mg/dl [facility] HDL 49 mg/dl [facility] Comment:Low:<40 High(Desirab le):>or=60 LDL, Calculated 113 mg/dl [facility] Comment: Optimal:<100 Above optimal:100-129 Borderline High:130-159 High:160-189 Very High:>ig=797 Chol/HDL Ratio 3.7 [facility] Fasting? No [facility] Blood specimen (specimen) 09/28/2010 11:12 EDT 09/28/2010 11:13 EDT Jeb Daigle MD CHEMISTRY & BLOOD GAS ORDE RABLES Final Result [facility] [address] [place] [address] * (ABNORMAL) POCT HEMOGLOBIN A1C (09/28/2010 10:32 EDT) Hemoglobin A1c, POC 10.9(A) <=5.7 POINT OF CARE 09/28/2010 10:3 2 EDT Jeb Daigle MD POINT OF CARE TEST ORDERAB LES Final Result Performing Organization Address City/[facility]/ZIP Co de Phone Number POINT OF CARE documented in this encounter Visit Diagnoses Diagnosis Type I (juvenile type) diabetes mellitus without mention of complication, uncontrolled- Primary Pure hypercholesterolemia Type I (juvenile type) diabetes mellitus with other specified manifestations, uncontrolled documented in this encounter Care Teams Taker Off Relationship Specialty Start Date End Date Huseyin Zazueta MD [address] [place] [address] PCP - General 07/16/09 documented as of this encounter
--- OUTSIDE RECORDS SUMMARY | 2024-05-02 15:23 | XMS_ITS | Encounter Summary ---
Author Organization [facility] Address [address] [place] [address] Care Team Providers Care Molder Machine Tender Name Role Phone Huseyin Zazueta MD Primary Care Provider Reason for Visit * Reason Onset Date Comments Diabetes 01/08/2011 Encounter Details Date Type Department Care Team (Late st Contact Info) Description 01/08/2011 Telephone [facility] Endocrinology - [address] [phone] Raffaele Nichole RN CDE Diabetes Social History [...] Telephone Encounter - Raffaele Nichole RN - 01/08/2011 5449 EDT New emial from pt: There was no alcohol consumption, the carbs were from orange juice. I have never had a low like that on days where I have exercised either. My shower wasn't very hot, there wasn't even steam on the mirrors. It wasn't the low that scared me so much as the fact that I was unable to bring myself back up without a ridiculous amount of carbs and even then, it really wasn't enough. I felt like I probably shouldn't have gone to bed without one more snack but I was completely exhausted by that time. The ice cream was only 15 carbs and I knew that it wasn't going to help me much (being chocolate) but I didn't realize that it would hinder the absorption of other sugars. That explains a little bit whyI didn't go soaring with the whoopie pies and orange juice, but even with the fat slowing my absorpt ion, I would think that at some point the carbs should have caught up with me. I know this is kind of off the wall, but is there anything else that I can keep with me that will absorb quickly? I found that skittles and I get along just fine and its easier to keep myself in check. They seem to work quickly and I haven't had any issues but I will go with your recommendations ifsomething else may work faster. Carolyn Portillo This is my reply: how about honey or maple syrup for quick absorption? the other thing is to decrease your insulin for meals in the evening if you see lows after supper. i think it took a long time to treat the low because you may have been continuing to drop. let;s take a look at the download next week. call the clinic with any urgent issues. raffaele * Telephone Encounter - Raffaele Nichole RN - 01/08/2011 1351 EDT email from pt: Angela Medellin, Just wanted to touch base with you on my night. At 7:40PM, I took 8 units of novolog to cover the 57 carbs that I consumed. I mowed the lawn for about 20 minutes at 7:00 and took a shower at 8:45. When I got out of the shower, I had mild symptoms of being Hypo (just a little shakey). When I tested I was at 38 (9:00). I went on to have more than 60 carbs to correct the low (2 whoopie pies, a glass of OJ, half a snickers ice cream bar, some skittles) and when I went to bed almost an hour later, I was only 62. I skipped my lantus for the night and woke up with a BG of 130. Concerns are: Shouldn't have had the low Didn't feel the low as much as I should have. I only tested because I was getting ready to take my lantus. At 38 I feel like I should have been in pretty bad shape. BG didn't go up very much after the amount of carbs I consumed I went to bed with a low and still woke up within a reasonable range The carbs that I had were in liquid form (at 7:40), would this affect my ratio? I thought it didn'tmatter and that carbs are carbs but it might just be my assumption. Any thoughts are appreciated. Carolyn Portillo This is my reply: angela keith, this is quite concerning and i am hoping that we will have a good tracing to see if there were any trends preceding this low. question: any alcohol consumption that evening? what were your liquid carbs at 7:40? i suspect that mowing the lawn may have contributed to the rapid decline. you may have to do some carb loading before such activity. also, was your shower very warm? sometimes vasodilation can cause lows.... also, let's have you keep some of the glucose gel with you...it can get absorbed quicker than otherstuff. try to avoid ice cream and chocolate as treatment for lows since the fat can delay the absoprtion of sugar. i will notify Dr Daigle as well. raffaele schofield documented in this encounter Plan of Treatment Not on file documented as of this encounter Visit Diagnoses Not on filedocumented in this encounter Care Teams Molder Machine Tender Relationship Specialty Start Date End Date Huseyin Zazueta MD [address] [place] [address] PCP - General 07/16/09 documented as of this encounter
--- OUTSIDE RECORDS SUMMARY | 2024-05-02 15:23 | XMS_ITS | Encounter Summary ---
Author Organization [facility] Address [address] [place] [address] Care Team Providers Care Workforce Development Vice President Name Role Phone Huseyin Zazueta MD Primary Care Provider Reason for Visit * Reason Onset Date Comments Appointment Related 01/20/2011 Encounter Details Date Type Department Care Team (Late st Contact Info) Description 01/20/2011 Telephone [facility] Endocrinology - [address] [address] Raffaele Nichole, RN CDE Appointment Related Social [...] Telephone Encounter - Raffaele Nichole RN - 01/20/2011 0939 EDT email to pt: good morning, i was able to download your sensor and would like to review the data with you. do you have any timenext week to come in? raffaele schofield documented in this encounter Plan of Treatment Not on file documented as of this encounter Visit Diagnoses Not on filedocumented in this encounter Care Teams Workforce Development Vice President Relationship Specialty Start Date End Date Huseyin Zazueta MD [address] [place] [address] PCP - General 07/16/09 documented as of this encounter
--- OUTSIDE RECORDS SUMMARY | 2024-05-02 15:23 | XMS_ITS | Encounter Summary ---
Author Organization [facility] Address [address] [place] [address] Care Team Providers Care Transportation Program Director Name Role Phone Huseyin Zazueta MD Primary Care Provider [phone] Reason for Visit * Reason Comments Diabetes Encounter Details Date Type Department Care Team (Latest Contact Info) Description 05/09/2012 8:40 EST Office Visit [facility] Endocrinology - [address] [address] Carlin Manriquez MD [address] [place] [address], [address] [phone] Type I (juvenile type) diabetes mellitus without mention of complication, not stated as uncontrolled (Primary Dx); Pure hypercholesterolemia Social History Tobacco [...] Sign Reading Time Taken Comments Blood Pressure 94/62 05/09/2012 0845 EST Pulse 88 05/09/2012 0845 EST Temperature - - Respiratory Rate - - Oxygen Saturation - - Inhaled Oxygen Concentration - - Weight 55.3 kg (122 lb) 05/09/2012 0845 EST Height 154.9 cm (5' 1) 05/09/2012 0845 EST Body Mass Index 23.05 05/09/2012 0845 EST documented in this encounter Patient Instructions * Patient Instructions* Carlin Manriquez - 05/09/2012 9:06 EST Images from the original note were not included. Please schedule to see Lacie for CGM (as a possible prelude to insulin pump down the road) Do your best to cut down on snacks. Continue Lantus 18 units in the morning and 10 un at night. Keep using a 1:6 carb ratio for now plus correction if your glucose is high. Watch your numbers on the weekends - they appear to be much higher. Feel free to call and run some numbers by me if you want to: [phone]. Your Hemoglobin A1C What is an A1C? The A1C is a blood test done in the lab that measures your average blood sugar level over the past 2-3 months. The A1C measures how much sugar sticks to the part of the red blood cell called the hemoglobin. The higher your blood sugar, the higher your A1C number. The A1C is checked every 3-6 months and reported as a percentage, for example 7%. This test helps you and your doctor to gauge your risk for developing complications and to determine if your treatment plan works for you. What does the number mean? My A1C level is 9.4% That means that my average blood sugar is around 240 My A1C goal for the next 3 months is less than 8.0% Goal for most people 6.5 - 7% My responsibility is: 1. Be sure it is measured every 3 - 4 months 2. Know my goal and current level 3. Know what to do to achieve A1C goal documented in this encounter Ordered Prescriptions Prescription Sig Dispense Quantity Refills Last Filled Start Date End Date ketone urine reagent strip (KETOSTIX)Indicati ons:Type I (juvenile type) diabetes mellitus without mention of complication, not stated as uncontrolled Use 1 Strip as directed as needed. if blood glucose is greater than 250 (for 2 consecutive readings), if ill, and/or if vomiting. 50 Each 5 05/09/2012 4 documented in this encounter Progress Notes * Carlin Manriquez - 05/09/2012 1047 EST [facility] Diabetes Follow-Up Note SUBJECTIVE: Patient ID: Carolyn Sosa is an 31 y.o. female. CHIEF COMPLAINT: Carolyn Sosa presents with Diabetes. Diabetes She presents for her follow-up diabetic visit. She has type 1 diabetes mellitus. MedicAlert identification noted. The initial diagnosis of diabetes was made 22 months (diagnosed 07/2011 and JOHNNY+) ago.Her disease course has been fluctuating. Hypoglycemia symptoms include confusion, hunger, mood changes, nervousness/anxiousness, sweats and tremors. Associated symptoms include fatigue. There are no hypoglycemic complications. Symptoms are improving. There are no diabetic complications. Risk factors for coronary artery disease include tobacco exposure and stress. Current diabetic treatment includes insulin injections. She is compliant with treatment most of the time. She is currently taking insulin pre-breakfast, pre-lunch, pre-dinner and at bedtime. Insulin injections are given by patient. Rotation sites for injection include the abdominal wall and thighs. Her weight is stable. She is following a diabetic diet. Meal planning includes avoidance of concentrated sweets and carbohydrate counting. She has had a previous visit with a mold inspector. She rarely participates in exercise. Her home blood glucose trend is fluctuating dramatically. An KENDRICK inhibitor/angiotensin II receptor tori is not being taken. She does not see a mold stamper and repairer.Eye exam is current. Carolyn is factually upbeat today that her hemoglobin A1c is 9.4% which is up from 9.8% at her last visit, but she thought it would be worse than that. She has fairly dramatic fluctuations in her bloodsugars in general, and she seems unable to identify a pattern in order to fix it. Currently she is using Lantus insulin 18 units in the morning and 10 units in the evening, and NovoLog insulin with a carb ratio of 1:6, as well as a correction factor that ranges from 0-5 units. Shealmost always uses insulin with each meal, unless she begins the meal with a glucose of less than 95, and then she might use none. She occasionally does forget one of her Lantus shots, typically in the morning 1, because she gets going first thing in the morning getting her children to school and then arrives at work and realizes she has forgotten it. She normally can tell what spikes her high, but sometimes she cannot anticipate a low number. She is stressed out as usual. 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 She had gone to see Lacie Nichole in this clinic to get a continuous glucose monitor or so that wecould see if we could identify patterns in her other erratic glucoses, but her insurance switched around that time and it sounds as though she was unable to afford the co-pay. She is interested in either a continuous glucose monitor or an insulin pump or both, but not until we have a better idea where the problem spots are for her. She is sexually active and is on a control patch (Ortho Evra). In addition she has hypercholesterolemia and is on statin. She does not have hypertension or microalbuminuria, so she is not on anACE inhibitor or an ARB. Results for CAROLYN SOSA ( ) as of 05/09/2012 10:51 Ref. Range 02/18/2011 14:22 05/20/2011 14:04 07/15/2011 08:19 08/27/2011 15:45 12/28/2011 15:27 Hemoglobin A1c, POC Latest Range: High: 5.7 8.4 (A) 10.3 (A) 9.8 (A) 9.0 (A) Ur Alb ug/mg Crea No range [...] medication list which includes the following prescription(s): simvastatin, ketone urine reagent strip, insulin aspart, insulin glargine, insulin pen needles 31g x 5/16, blood glucose, norelgestromin-ethinyl estradiol, and glucagon. Allergies include: Levemir Review of Systems Constitutional: [...] LABS: Lab Results Component Value Date HGBA1C 9.0* 12/28/2011 Lab Results Component Value Date CHOL 228 [...] mention of complication, not stated as uncontrolled 2. Pure hypercholesterolemia Carolyn is a very nice and fairly sophisticated but frustrated 31-year-old with type 1 diabetes. Since we split her Lantus dose she thought things were getting a little bit better, and she is very upbeat today, despite her A1c is 9.4%, which is well above goal. Currently she is using 18nits in the morning and 10 at night. She says she is fairly certain that her blood sugar drops in general a littlebit overnight but not a lot, so she is actually very comfortable with the 10 units at night. She certainly does not want to increase this but she think she can handle all of it. In regards to her daytime Lantus dose she does think that if she did not eat breakfast or lunch she would get a low bloodsugar around 2 PM, but not before that She thinks that her carb ratio of 1:6 Is actually working fairly well. She admits to inconsistent eating habits and says this is not likely to change. She staysincredibly busy as a single mother with 3 children working a full-time job, and is just doing the best she can. She continues to snack, admitting to grabbing a cookie on occasion, and does not alwaysbolus for these. She thinks these minor indiscretions on a fairly consistent basis are a primary otr truck driver of her hyperglycemia. In looking at her glucoses, I also noticed that for instance on the weekend, the lowest glucose I see is 156, the next being 190, and all the other ones are above 200 and 300s. Although she says she stays very active with her children, there is no question that her schedule is different on weekends. In terms of forgetting Lantus doses, I asked her she could set an alarm on her smart phone or put some sticky notes or other reminders up to help her remember. She will try these gimmicks and tricksto see if she can remember her morning Lantus more regularly. She and I have talked at length today about the possibility of her using continuous glucose monitoring or even a an insulin pump in order to get better control of her glucoses. At the very least she is eager to minimize long-term complications, and to get her numbers more consistent. I think she could even be a candidate down the road for someone, but right now added injections or not what she needs. I am going to refer her again to Lacie Nichole for consideration of a continuous glucose monitor to see if we can find some patterns and trends, and to consider an insulin pump. She is very thinand active, and I suspect the Lantus insulin absorption just isn't working for her. She is up-to-date on diabetes screening (had labs done at her PCPs office in March, but I do not have these in our records yet), takes a statin for hypercholesterolemia, and does not have an indication for an KENDRICK inhibitor. We reviewed again that is contraindicated while on a statin. She continues to smoke and I have counseled her again about stopping smoking. She says she is interested in trying and may try very soon. I plan to see her back in 3 months or sooner as needed, and hopefully she can get a sensor and possibly even a pump in the near future. My exit recs: Please schedule to see Lacie for CGM (as a possible prelude to insulin pump down the road) Do your best to cut down on snacks. Continue Lantus 18 units in the morning and 10 un at night. Keep using a 1:6 carb ratio for now plus correction if your glucose is high. Watch your numbers on the weekends - they appear to be much higher. Feel free to call and run some numbers by me if you want to: [phone]. Patient understands medication regimen. Barriers to adherence: Family Support and stress with busy life. Goals and plan to achieve these discussed Systolic blood pressure less than 130. And diastolic blood pressure less than 80. Hemoglobin A1C less than 7%. LDL cholesterol: 70 to 99. HDL males >40 and females > 50 mgm/dl Triglycerides fasting < 150 mgm/dl PLAN: Medications: Recommend aspirin daily. Insulin: Insulin stabilization is required: see above Non-insulin: diet. Recommended: Statin therapy already taking - no change and ACEI therapy not indicated as neither hypertensive nor with microalbuminuria. Glucose monitoring 6 times daily. Referred to diabetic education program. Referred to mold inspector yes has been in the past and doesn't see further benefit. Patient referred to eye care transition mgr for annual dilated eye exam. Lifestyle modifications: recommend exercise and recommend compliance with a diabetic diet Return in 4 months. Carlin Manriquez MD 05/09/2012 10:47 * Aury Mccallum - 05/09/2012 0846 EST Fingerstick blood sample obtained for POCT Hemoglobin A1C performed for this DOS at the order of Dr. Manriquez. documented in this encounter Plan of Treatment Not on file documented as of this encounter Procedures Procedure Name Priority Date/Time Associated Diagnosis Comments POCT HEMOGLOBIN A1C Routine 05/09/2012 8 :57 EST Type I (juvenile type) diabetes mellitus without mention of complication, not stated as uncontrolled documented in this encounter Results * (ABNORMAL) POCT HEMOGLOBIN A1C (05/09/2012 8:57 EST) Hemoglobin A1c, POC 9.4(A) <=5.7 POINT OF CARE 05/09/2012 8:57 EST us Carlin Manriquez MD POINT OF CARE TEST ORDERABLES Final Result POINT OF CARE documented in this encounter Visit Diagnoses Diagnosis Type I (juvenile type) diabetes mellitus without mention of complication, not stated as uncontrolled- Primary Pure hypercholesterolemia documented in this encounter Discontinued Medications Medication Sig Discontinue Reason Start Date End Da te simvastatin (ZOCOR) 40 mg tablet Take 1 tab by mouth once daily. Dose adjustment 07/07/2011 05/09/2012 varenicline (CHANTIX) 1 mg tablet Take 1 mg by mouth 2 times daily. Therapy completed 05/09/2012 documented as of this encounter Historical Medications * This list may reflect changes made after this encounter. simvastatin (ZOCOR) 20 mg tablet Take 20 mg by mouth daily. 06/27/2013 added in this encounter Care Teams Transportation Program Director Relationship Specialty Start Date End Date Huseyin Zazueta MD [address] [place] [address] PCP - General 07/16/09 documented as of this encounter
--- OUTSIDE RECORDS SUMMARY | 2024-05-02 15:23 | XMS_ITS | Encounter Summary ---
Author Organization [facility] Address [address] [place] [address] Care Team Providers Care Records Management Specialist Name Role Phone Huseyin Zazueta MD Primary Care Provider [phone] Reason for Visit * Reason Comments Other Encounter Details Date Type Department Care Team (Late st Contact Info) Description 12/29/2011 Refill [facility] Endocrinology - [address] [address] Carlin Manriquez MD [address] [place] [address], [address] [phone] Other Social History Tobacco Use Types Packs/Day [...] Filled Start Date End Date blood glucose test strips Brand: Freestyle Lite. Test 6 times daily 600 Each 3 12/29/2011 3 documented in this encounter Plan of Treatment Not on file documented as of this encounter Visit Diagnoses Not on filedocumented in this encounter Care Teams Records Management Specialist Relationship Specialty Start Date End Date Huseyin Zazueta MD [address] [place] [address] PCP - General 07/16/09 documented as of this encounter
--- OUTSIDE RECORDS SUMMARY | 2024-05-02 15:23 | XMS_ITS | Encounter Summary ---
Author Organization [facility] Address [address] [place] [address] Care Team Providers Care Blueberry Grower Name Role Phone Huseyin Zazueta MD Primary Care Provider [phone] Reason for Visit * Reason Onset Date Comments Other 12/23/2010 Encounter Details Date Type Department Care Team (Late st Contact Info) Description 12/23/2010 Telephone [facility] Endocrinology - [facility] [address] [place] [address] Jeb Daigle MD [address] [facility] [address] [place] [address] Other Social History Tobacco Use [...] encounter Miscellaneous Notes * Telephone Encounter - Velma Phillips - 01/06/2011 1519 EDT Called & spoke with patient and answered all questions. * Telephone Encounter - Navya Bermudez - 12/23/2010 1523 EDT Pt was looking over her progress notes and had a question on one of the diagnosis codes and the statement attached to it on the 09/28/10 note Chief complaint #3 States DM manif NEC type 1 uncontrolled- pt would like to know what NEC,could not find meaning Please call documented in this encounter Plan of Treatment Not on file documented as of this encounter Visit Diagnoses Not on filedocumented in this encounter Care Teams Blueberry Grower Relationship Specialty Start Date End Date Huseyin Zazueta MD [address] [place] [address] PCP - General 07/16/09 documented as of this encounter
--- OUTSIDE RECORDS SUMMARY | 2024-05-02 15:23 | XMS_ITS | Encounter Summary ---
Author Organization [facility] Address [address] [place] [address] Care Team Providers Care Environmental Planning Engineer Name Role Phone Huseyin Zazueta MD Primary Care Provider [phone] Reason for Visit * Reason Onset Date Comments Medications Refill 09/27/2011 Encounter Details Date Type Department Care Team (Late st Contact Info) Description 09/27/2011 Refill [facility] Endocrinology - [address] [address] Carlin Manriquez MD [address] [place] [phone] Medications Refill Social History Tobacco Use [...] Date insulin aspart (NOVOLOG FLEXPEN) 100 unit/mL injection pen Use 1-5 units 3 times daily with meals 30 mL 8 09/27/2011 12/28/2011 documented in this encounter Miscellaneous Notes * Telephone Encounter - Paty Phillips - 09/27/2011 1026 EDT Pt is out of Novolog and needs today. documented in this encounter Plan of Treatment Not on file documented as of this encounter Visit Diagnoses Not on filedocumented in this encounter Discontinued Medications Medication Sig Discontinue Reason Start Date End Da te insulin aspart (NOVOLOG FLEXPEN) 100 unit/mL injection pen Inject into the skin 3 times daily with meals. On a Sliding Scale 1:10 carb ratio appproximately 30 units a day Reorder 08/13/2010 09/27/2011 documented as of this encounter Care Teams Environmental Planning Engineer Relationship Specialty Start Date End Date Huseyin Zazueta MD [address] [place] [address] PCP - General 07/16/09 documented as of this encounter
--- OUTSIDE RECORDS SUMMARY | 2024-05-02 15:23 | XMS_ITS | Encounter Summary ---
Author Organization [facility] Address [address] [place] [address] Care Team Providers Care Regulatory Intern Name Role Phone Huseyin Zazueta MD Primary Care Provider [phone] Reason for Visit * Reason Onset Date Comments Diabetes 12/14/2010 Encounter Details Date Type Department Care Team (Late st Contact Info) Description 12/14/2010 Telephone [facility] Endocrinology - [address] [phone] Raffaele Nichole RN CDE Diabetes Social History [...] Telephone Encounter - Raffaele Nichole RN - 12/14/2010 1634 EDT email from pt: Angela Medellin, Trying to keep records for you to look at so I hope it helps. I slacked off with logging my food this weekend but I threw my blood sugars in there. Let me know if there is anything that you need or if you have any questions. Type Value Unit Name Event Date Time Notes A1C 11.3 % Lab Test 12/09/2010 11:30 Schnure BG 271 mg/dL Out Of Bed 12/10/2010 7:01 M 18 units Lantus Before Breakfast 12/10/2010 8:00 M 4 units novolog Out Of Bed 12/10/2010 8:00 BG 230 mg/dL After Breakfast 12/10/2010 10:06 BG 179 mg/dL Other 12/10/2010 11:20 BG 191 mg/dL Before Lunch 12/10/2010 12:04 F 42 grams powerbar Lunch 12/10/2010 12:10 coffee, unknown carbs M 7 units novolog Before Lunch 12/10/2010 12:11 1-7, 1 correction BG 279 mg/dL After Lunch 12/10/2010 14:03 BG 168 mg/dL Other 12/10/2010 15:28 BG 150 mg/dL Before Dinner 12/10/2010 17:31 M 11 units novolog Before Dinner 12/10/2010 18:00 1-7 with 1 unit correction F 42 grams baked potato Dinner 12/10/2010 18:11 F 17 grams pastry Dinner 12/10/2010 18:12 F 10 grams blueberries Dinner 12/10/2010 18:14 1/2 cup BG 274 mg/dL After Dinner 12/10/2010 19:33 F 46 grams ice cream Snack 12/10/2010 19:44 M 7 units novolog Before Snack 12/10/2010 19:44 46 carbs/ 1-7 ratio/ no correcyion BG 273 mg/dL Before Bed 12/10/2010 21:39 ?? twisted tea? M 10 units Lantus Before Bed 12/10/2010 21:39 BG 113 mg/dL Out Of Bed 12/11/2010 6:30 M 18 units Lantus Out Of Bed 12/11/2010 7:53 F 13 grams coffee Breakfast 12/11/2010 7:58 1/4 cup creamer=2.7 carbs //splenda=1 carb per packet M 3 units novolog Before Breakfast 12/11/2010 8:02 BG 95 mg/dL Before Lunch 12/11/2010 12:31 F 1 grams celery Lunch 12/11/2010 13:12 8 3 stalks F 10 grams carrots Lunch 12/11/2010 13:12 4 oz? 13 baby carrots F 21 grams smartfood popcorn Lunch 12/11/2010 13:21 M 5 units novolog Before Lunch 12/11/2010 13:22 4.5 units w/ 1-7 ratio- no correction BG 119 mg/dL After Lunch 12/11/2010 15:56 BG 165 mg/dL Before Dinner 12/11/2010 20:08 M 9 units novolog Before Dinner 12/11/2010 20:08 8 for 1-7 ratio, 1 correction F 50 grams subway 6in roast beef Dinner 12/11/2010 20:15 house of pizza, larger portion BG 202 mg/dL Out Of Bed 12/12/2010 6:16 BG 207 mg/dL Out Of Bed 12/12/2010 6:36 M 18 units Lantus Out Of Bed 12/12/2010 9:20 BG 285 mg/dL Before Breakfast 12/12/2010 10:24 F 5 grams omelet Breakfast 12/12/2010 10:27 F 42 grams home fries Breakfast 12/12/2010 10:29 M 9 units novolog Before Breakfast 12/12/2010 10:31 7 regular, 2 correction M 10 units Lantus Before Bed 12/12/2010 21:36 BG 195 mg/dL Out Of Bed 12/13/2010 8:30 M 18 units Lantus Out Of Bed 12/13/2010 8:30 BG 237 mg/dL Before Lunch 12/13/2010 12:27 M 10 units Lantus Before Bed 12/13/2010 20:19 BG 59 mg/dL During Night 12/14/2010 0:05 low BG 203 mg/dL Out Of Bed 12/14/2010 6:32 M 18 units Lantus Out Of Bed 12/14/2010 6:32 M 18 units Lantus Out Of Bed 12/14/2010 6:32 BG 188 mg/dL Other 12/14/2010 14:03 No lunch yet. Carolyn Portillo This is my reply: angela keith, thanks for sending in all of this info.... i am going to email you a form that i find easier for myself to read..... how much lantus are you taking ? i think that we probably need to increase that dose? thanks, raffaele This is her reply? I am on 18 units in the morning and 10 units before bed. I can try to use the form you have provided but I am really bad at remembering things like that. I only have the info that I do because I have an yobani on my phone that lets me record things and exportthem onto a computer. What information do you want me to provide? I was thinking that sending my carb counts to you would help in case thats where I'm going wrong but I don't want to overwhelm you either. Carolyn Portillo This is my reply: all of the info is very useful it is just hard to get a pattern but i will look at it tomorrw...however, i do think that you need more lantus in the evening...can we increase it to 12 units since youare waking up high in the mornings raffaele schofield documented in this encounter Plan of Treatment Not on file documented as of this encounter Visit Diagnoses Not on filedocumented in this encounter Care Teams Regulatory Intern Relationship Specialty Start Date End Date Huseyin Zazueta MD [address] [place] [address] PCP - General 07/16/09 documented as of this encounter
--- OUTSIDE RECORDS SUMMARY | 2024-05-02 15:23 | XMS_ITS | Encounter Summary ---
Author Organization [facility] Address [address] [place] [address] Care Team Providers Care Still Cleaner Tube Name Role Phone Huseyin Zazueta MD Primary Care Provider [phone] Reason for Visit * Reason Comments Blood Sugar Problem f/u Encounter Details Date Type Department Care Team (Latest Contact Info) Description 05/20/2011 14:00 EST Office Visit [facility] Endocrinology - [address] [address] Carlin Manriquez MD [address] [place] [address], [address] [address] DM w/o complication type I, uncontrolled (Primary Dx); Pure hypercholesterolemia Social History [...] Sign Reading Time Taken Comments Blood Pressure 106/66 05/20/2011 1403 EST Pulse 64 05/20/2011 1403 EST Temperature - - Respiratory Rate - - Oxygen Saturation - - Inhaled Oxygen Concentration - - Weight 54.4 kg (120 lb) 05/20/2011 1403 EST Height 154.9 cm (5' 1) 05/20/2011 1403 EST Body Mass Index 22.67 05/20/2011 1403 EST documented in this encounter Patient Instructions * Patient Instructions* Carlin Manriquez - 05/20/2011 14:19 EST Try to have lower or no carb snacks: cheese, nuts, pickles are some ideas Sliding scale before a meal to add to the meal dose: - 201-250: 1 unit - 251-300: 2 units - 301-350: 3 units - > 350: 5 units Try to do careful math on your carb intake each meal so you match insulin to carbs accurately documented in this encounter Progress Notes * Carlin Manriquez - 05/21/2011 1144 EST [facility] Diabetes Follow-Up Note CHIEF COMPLAINT: Carolyn Portillo presents in clinic today with: 1. DM w/o complication type I, uncontrolled 2. Pure hypercholesterolemia Carolyn Portillo has had diabetes since 2009 and was diagnosed as Type 1 via JOHNNY + in 07/2009. HPI: Carolyn Portillo recently has a history of being in poor glycemic control. Last HbA1c was 12.0%; last visit is was 8.6% representing a major improvement,and today it is 10.1%, representing a major deterioration. Patient has a history of being compliant some of the time with medical therapy. Glucose monitoring: QID. Home Blood Glucoses Running: BGs are consistent with Hgb A1C and are all over the place. She has a few lowsx in the late afternoon due to not eating lunch until late, she says. She also had some credit risk analytics manager lows a few weeks ago before she adjusted her insulin doses.. Carolyn is a delightful and complicated 30 yo female with Type 1 DM on Lantus 20 qam and 10 qpm as well as Novolog 1:7 with meals. She has fiddled with her insulin doses a LOT and says she was doing aswell as she ever had at her last visit. However since her last visit she has been snacking more, not covering the snacks, and generally is very stressed out in life. She has had fewer lows recently, but she still is not having significant hypoglycemia at night. Apparently Lantus really peaks with her. She rarely misses shots, but she sometimes has erratic meal times and or snacks a lot due to taking care of her children. She is on a statin for high cholesterol. She is sexually active and does not want more children and she uses depo shots for control. We discussed at her last clinic visit that she should NOT get while on a statin. Overall she cannot pinpoint why her self carehas deteriorated, but she doesn't seem too surprised. She is not exercising and just generally is not taking very good care of herself. She continues to worry about weight gain but assures me that she does not use manipulation of her diabetes to achieve lower weights. Patient's home regimen consists of has a current medication list which includes the following prescription(s): insulin glargine, insulin aspart, glucagon, and simvastatin. Carolyn Burger Lindsey reports the following: SYMPTOM YES or NO Blurry vision No Increased fatigue Yes Polydipsia/increased drinking Yes when glucose is high Polyphagia No Polyuria Yes when glucose is high Poor wound healing No Weight loss No Skin infection/vaginitis No Nocturia No Hypoglycemia No Diarrhea No Constipation No Shortness of breath/chest pain No Early satiation No Numbness/tingling of extremities No Impotence No Myalgia No The patient has experienced the following acute complications: hypoglycemia - mild-moderate and hyperglycemia - moderate to severe. Eating habits: adherent to diabetic diet. Patient's weight has been stable. Wt Readings from Last 3 Encounters: 05/20/11 54.432 kg (120 lb) 02/18/11 54.432 kg (120 lb) 12/09/10 53.751 kg (118 lb 8 oz) Patient exercise level is: moderately active or has 3 children and is a single mother so has a hardtime sticking to a routine. Currently they all live with her mother but she is trying to move soon. History Substance Use Topics ??? Smoking status: Current Everyday Smoker -- 1.0 packs/day ??? Smokeless tobacco: Never Used ??? Alcohol Use: Yes occasional PHYSICAL EXAMINATION: Vitals: BP 106/66 Pulse 64 Ht 154.9 cm (61) Wt 54.432 kg (120 lb) BMI 22.67 kg/m2 BMI: Body mass index is 22.67 kg/(m^2). Funduscopic: deferred Cardiac: Regular rhythm, nml rate Lungs: clear bilaterally Skin: normal except for a few small lesions that are scabbed over and healing but were small blisters on the medial posterior foot - slightly itchy, not painful, no surrounding erythema Feet: good hygiene of the nails with no hypertrophy or onychomycosis. There are no osseous deformities or open lesions. Vibratory sense is intact. No pedal edema. Post Tibial and Dorsalis Pedis: normal LABS: FBS: Lab Results Component Value Date HGBA1C 8.4* 02/18/2011 Lab Results Component Value Date CHOL 181 09/28/2010 HDL 49 09/28/2010 LDLBASE 113 09/28/2010 TRIG 96 09/28/2010 CHOLHDL 3.7 09/28/2010 Lab Results Component Value Date BUN 8* 09/28/2010 CREATININE 0.51* 09/28/2010 NA 138 09/28/2010 K 4.0 09/28/2010 Lab Results Component Value Date ALT 15 09/28/2010 Lab Results Component Value Date LABALBU 4.1 09/28/2010 UCREA 33.7 09/28/2010 MICRALBCRRAT 14.8 09/28/2010 ASSESSMENT: 1. DM w/o complication type I, uncontrolled 2. Pure hypercholesterolemia Carolyn is a delightful woman with a difficult social situation who was doing a great job with brittle diabetes but now is doing less well. She seems agitated today and I know she stays very busy with her children. She and her ex- do not get along, and this is a significant source of stress for her. I have asked her to send me glucoses if she wants to, to be sure and bolus for all meals withthe 1:7 ratio, and to try to find some low- or no-carb snack options to keep from spiking her glucoses. Right now she snacks on cookies and crackers and doesn't cover with insulin, so the spikes are to be expected. I have also given her a sliding scale to use in addition to meals if she has hyperglycemia. She is a little bit lax and estimates how much to give rather than using a formula of any sort. We also discussed the importance of not getting while on a statin. She is on good control (depo). My exit recs to her: Try to have lower or no carb snacks: cheese, nuts, pickles are some ideas Sliding scale before a meal to add to the meal dose: - 201-250: 1 unit - 251-300: 2 units - 301-350: 3 units - > 350: 5 units Try to do careful math on your carb intake each meal so you match insulin to carbs accurately Patient does demonstrate knowledge of diabetes and expectations. Patient does understand medication regimen. Barriers to adherence: No Barriers except maybe stress Goals and plan to achieve these discussed Systolic blood pressure less than 130. And diastolic blood pressure less than 80. Hemoglobin A1C less than 7% with no lows. LDL cholesterol: 70 to 99. And Trig less than 180 - fasting PLAN: Medications: Insulin: Insulin stabilization is required: see above. Non-insulin: diet. Recommended: Statin therapy on simvastatin - needs repeat cholesterol before long. Glucose monitoring QID. Referred to diabetic education program. Patient education already provided. Referred to business line controller yes sees Lacie Nichole regularly. Patient referred to eye long term care social worker for annual dilated eye exam. Lifestyle modifications: recommend exercise and recommend compliance with a diabetic diet Return in three months. Carlin Manriquez MD 05/21/2011 11:44 * Glenna Patrick LPN - 05/20/2011 1356 EST Fingerstick blood sample obtained for POCT Hemoglobin A1C performed for this DOS at the order of Dr.Marney GLENNA PATRICK LPN 05/20/2011 13:56 documented in this encounter Plan of Treatment Not on file documented as of this encounter Procedures Procedure Name Priority Date/Time Associated Diagnosis Comments POCT HEMOGLOBIN A1C Routine 05/20/2011 1 4:04 EST DM w/o complication type I, uncontrolled documented in this encounter Results * ALBUMIN, URINE (07/15/2011 8:19 EST) Creatinine, Urn [place] 111.9 mg/dl [facility] Ur Albumin mg/dl 0.7 <1.9 mg/dl [facility] Ur Alb ug/mg Crea 6.3 ug/mg Crea [facility] Comment: Normal: <30 ug/mg creat High: 30-300 ug/mg creat Very high and nephrotic: >300 ug/mg creat Urine specimen (specimen) 07/15/2011 8:19 EST 07/15/2011 10:28 EST Carlin Manriquez MD CHEMISTRY & BLOOD GAS ORDERABL ES Final Result Performing Organization Address [facility] de Phone Number [facility] [address] [place] [address] * LIPID PROFILE (INCLUDES CHOLESTEROL, TRIGLYCERIDES, HDL, LDL) (07/15/2011 8:19 EST) Cholesterol 228 mg/dl [facility] Comment: Desirable:<200 Borderline High:200-239 High:>mu=934 Triglycerides 68 mg/dl [facility] Comment: Normal:<150 Borderline High:150-199 High:200-499 Very High:>rv=164 HDL 43 mg/dl [facility] Comment: Low:<40 Normal:40-60 Desirable: >60 LDL, Calculated 171 mg/dl [facility] Comment: Optimal:<100 Near Optimal:100-129 Borderline High:130-159 High:160-189 Very High:>zl=073 Chol/HDL Ratio 5.3 [facility] Fasting? Yes [facility] Blood specimen (specimen) 07/15/2011 8:19 EST 07/15/2011 10:34 EST Carlin Manriquez MD CHEMISTRY & BLOOD GAS ORDERABL ES Final Result Performing Organization Address [facility] de Phone Number [facility] [address] [place] [address] * (ABNORMAL) COMPREHENSIVE METABOLIC PANEL (CMP) (07/15/2011 8:19 EST) Potassium 4.5 3.5 - 5.0 mEq/L [facility] Sodium 140 136 - 145 mEq/L [facility] Chloride 105 96 - 110 mEq/L [facility] CO2 25 24 - 32 mEq/L [facility] Total Alkaline Phosphatase 69 38 - 126 U/L [facility] Bilirubin, Total 0.6 0.2 - 1.3 mg/dl [facility] AST 14(L) 15 - 46 U/L [facility] ALT 22 9 - 52 U/L [facility] Albumin 4.1 3.4 - 4.9 g/dl [facility] Total Protein 7.2 6.5 - 8.3 g/dl [facility] Creatinine 0.62 0.52 - 1.04 mg/dl [facility] GFR, Calculated >60 >60 ml/min/1.7 3m2 [facility] BUN 11 10 - 26 mg/dl [facility] Calcium 9.5 8.5 - 10.5 mg/dl [facility] Calculated Calcium 9.8 8.5 - 10.5 mg/dl [facility] Glucose, Serum 181(H) 70 - 100 mg/dl [facility] Fasting? Yes [facility] Blood specimen (specimen) 07/15/2011 8:19 EST 07/15/2011 10:34 EST Carlin Manriquez MD CHEMISTRY & BLOOD GAS ORDERABL ES Final Result Performing Organization Address [facility] Co de Phone Number [facility] [address] [place] [address] * (ABNORMAL) POCT HEMOGLOBIN A1C (05/20/2011 14:04 EST) Hemoglobin A1c, POC 10.3(A) <=5.7 POINT OF CARE 05/20/2011 14:0 4 EST us Carlin Manriquez MD POINT OF CARE TEST ORDERABLES Final Result POINT OF CARE documented in this encounter Visit Diagnoses Diagnosis Type I (juvenile type) diabetes mellitus without mention of complication, uncontrolled- Primary Pure hypercholesterolemia documented in this encounter Care Teams Still Cleaner Tube Relationship Specialty Start Date End Date Huseyin Zazueta MD [address] [facility] [place] [address] PCP - General 07/16/09 documented as of this encounter
--- OUTSIDE RECORDS SUMMARY | 2024-05-02 15:23 | XMS_ITS | Encounter Summary ---
Author Organization [facility] Address [address] [place] [address] Care Team Providers Care Assault Boat Coxswain Name Role Phone Peter Hernández MD Primary Care Provider [phone] Encounter Details Date Type Department Care Team (Late st Contact Info) Description 03/26/2011 Results Only [facility] Laboratory Services - [facility] ([facility]) [address], [place] [address] Peter Hernández MD [address] [place], [place] [id number] Social History Tobacco Use Types Packs/Day Years [...] Diagnosis Comments PAP TEST- RESULT ONLY Routine 03/26/2011 0:00 EDT documented in this encounter Results * PAP TEST- RESULT ONLY (03/26/2011 0:00 EDT) Pathology Report: CYTOPATHOLOGY REPORT Reports generated via electronic interface contain original data; however they are lacking the format of the original report. Caution should be taken when reading/interpreti ng unformatted reports. Name: ? CAROLYN SOSA ? Accession #: ? [id number] ? : ? 1980 (Age: 30) ??F ?Collect Date: ? 03/26/2011 ? Location: ? [facility] ? Receive Date: ? 03/30/2011 ? Provider: PETER HERNÁNDEZ MD Copy to: ? Final Report SPECIMEN ADEQUACY ? Satisfactory for Evaluation - transformation zone component present GENERAL CATEGORIZATION ? Negative for Intraepithelial Lesion or Malignancy ?? Hormonal/Contracep tive status: Depo-Provera Specimen/Source: ??Pap Test, Cervix, ThinPrep Imaging System with manual evaluation Document reviewed and electronically signed by: ? Glenna Haji, JOAQUIN(ASCP) ? Report ??Date: 04/12/2011 08:27 HPV with Pap Test ? Date Ordered: ? 04/12/2011 ? Status: ?? Signed Out ?Date Complete: ? 04/15/2011 ? By: ??System Interface ? Date Reported: ? 04/15/2011 ? Interpretation RESULT: Negative for HPV types 16, 18, 31, 33, 35, 39, 45, 51, 52, 56, 58, 59, and 68. Comments Document reviewed and electronically signed by: ? System Interface ? Report date: 04/15/2011 By the signature above, the attending physician certifies that he/she has personally conducted a gross and/or microscopic examination of the described specimens and rendered or confirmed the above diagnosis. End of Report [facility] 03/26/2011 03/30/2011 us Peter Hernández MD PATHOLOGY ORDERABLES Final Resu lt Performing Organization Address City/State/[facility] Co de Phone Number [facility] [address] [place] [address] documented in this encounter Visit Diagnoses Not on filedocumented in this encounter Care Teams Assault Boat Coxswain Relationship Specialty Start Date End Date Peter Hernández MD [address] [place] [address] PCP - General 07/16/09 documented as of this encounter
--- OUTSIDE RECORDS SUMMARY | 2024-05-02 15:23 | XMS_ITS | Encounter Summary ---
Author Organization [facility] Address [address] [place] [address] Care Team Providers Care Firewood Cutter Name Role Phone Peter Hernández MD Primary Care Provider [phone] Encounter Details Date Type Department Care Team (Late st Contact Info) Description 04/05/2012 Results Only [facility] Laboratory Services - [facility] ([facility]) [address] [place], [place] [address] Peter Hernández MD [address] [place], [place] [address] Social History Tobacco Use Types Packs/Day Years [...] Diagnosis Comments PAP TEST- RESULT ONLY Routine 04/05/2012 0:00 EDT documented in this encounter Results * PAP TEST- RESULT ONLY (04/05/2012 0:00 EDT) Pathology Report: CYTOPATHOLOGY REPORT Reports generated via electronic interface contain original data; however they are lacking the format of the original report. Caution should be taken when reading/interpreti ng unformatted reports. Name: ? CAROLYN SOSA ? Accession #: ? [id number] ? : ? 1980 (Age: 31) ??F ?Collect Date: ? 04/05/2012 ? Location: ? [facility] ? Receive Date: ? 04/07/2012 ? Provider: PETER HERNÁNDEZ MD Copy to: ? Final Report SPECIMEN ADEQUACY ? Satisfactory for Evaluation - transformation zone component present GENERAL CATEGORIZATION ? Epithelial Cell Abnormality INTERPRETATION ? Squamous Cell Abnormality - Atypical squamous cells, undetermined significance (ASC-US). EDUCATIONAL NOTES/RECOMMENDATI ONS ? [facility] recommends following the 2006 Consensus Guidelines for the Management of Women with Abnormal Cervical Cancer Screening Tests (JLGTD, 2007;11(4):201-222 ). ??Consensus guidelines are available online at www.ASCCP.org. Specimen/Source: ??Pap Test, Cervix, ThinPrep Imaging System with manual evaluation Document reviewed and electronically signed by: ? KWADWO MARCANO MD ? Report ??Date: 04/13/2012 14:34 HPV with Pap Test ? Date Ordered: ? 04/13/2012 ? Status: ?? Signed Out ?Date Complete: ? 04/17/2012 ? By: ??System Interface ? Date Reported: ? 04/17/2012 ? Interpretation RESULT: Negative for HPV. No E6 or E7 mRNA is detected from HPV types 16,18,31,33,35, 39,45,51,52,56,58, 59,66, and 68 by senior product consultant mediated amplification. Comments Document reviewed and electronically signed by: ? System Interface ? Report date: 04/17/2012 By the signature above, the attending physician certifies that he/she has personally conducted a gross and/or microscopic examination of the described specimens and rendered or confirmed the above diagnosis. End of Report [facility] 04/05/2012 04/07/2012 us Peter Hernández MD PATHOLOGY ORDERABLES Final Resu lt [facility] [address] [place] [address] documented in this encounter Visit Diagnoses Not on filedocumented in this encounter Care Teams Firewood Cutter Relationship Specialty Start Date End Date Peter Hernández MD [address] [place] [address] PCP - General 07/16/09 documented as of this encounter
--- OUTSIDE RECORDS SUMMARY | 2024-05-02 15:23 | XMS_ITS | Encounter Summary ---
Author Organization [facility] Address [address] [place] [address] Care Team Providers Care Maintenance Shop Welder Name Role Phone Huseyin Zazueta MD Primary Care Provider [phone] Reason for Visit * Reason Onset Date Comments Medications Refill 01/14/2012 Encounter Details Date Type Department Care Team (Late st Contact Info) Description 01/14/[address] [facility] Endocrinology - [address] [address] Carlin Manriquez MD [address] [place] [phone] Medications Refill Social History Tobacco Use [...] Start Date End Date insulin glargine (LANTUS SOLOSTAR PEN) 100 unit/mL (3 mL) injection pen Inject into the skin 2 times daily. 18 units in am and 12 units in pm 5 Syringe 11 01/14/2012 02/27/2013 documented in this encounter Plan of Treatment Not on file documented as of this encounter Visit Diagnoses Not on filedocumented in this encounter Discontinued Medications Medication Sig Discontinue Reason Start Date End Da te insulin glargine (LANTUS SOLOSTAR PEN) 100 unit/mL (3 mL) injection pen Inject into the skin 2 times daily. 18 units in am and 12 units in pm Reorder 01/12/2011 01/14/2012 documented as of this encounter Care Teams Maintenance Shop Welder Relationship Specialty Start Date End Date Huseyin Zazueta MD [address] [place] [address] PCP - General 07/16/09 documented as of this encounter
--- OUTSIDE RECORDS SUMMARY | 2024-05-02 15:23 | XMS_ITS | Encounter Summary ---
Author Organization [facility] Address [address] [place] [address] Care Team Providers Care Sales Administration Specialist Name Role Phone Huseyin Zazueta MD Primary Care Provider [phone] Reason for Visit * Reason Onset Date Comments Diabetes 12/21/2010 Encounter Details Date Type Department Care Team (Late st Contact Info) Description 12/21/2010 Telephone [facility] Endocrinology - [address] [address] Raffaele Nichole RN CDE Diabetes Social History [...] Telephone Encounter - Raffaele Nichole RN - 12/21/2010 7004 EDT email from pt: I'm using a 1-7 ratio for novolog. I think the higher numbers are just timing. On the days that I was high, I had only eaten a little while before bed so the full effect of the novolog hadn't taken place. On another note, when I get low around 100, I start feeling nauseous. Sometimes even when I'm a little higher. Is this something I can expect to pass once my body adjusts to numbers in the 100 range? Carolyn Portillo This is my reply: yes, once you have more normal numbers you should start tolerating them more when even < 100. how about sending me new numbers in 2 days so we can see how things are going? raffaele schofield * Telephone Encounter - Raffaele Nichole RN - 12/21/2010 1420 EDT Images from the original note were not included. email from pt: Raffaele, I need some sort of formula for night time. If I am below a certain number, should I take less lantus? I didn't take any last night and it worked out OK but other nights that I skipped my lantus, I woke up higher thank when I went to bed. Also, Could you please let me know what exactly my correction is? I can't find the paper that had the instructions on it. Is there something different that I should do on days where I may get a lot of exercise or drink a lot of water? Or just keep doing what I'm doing and carry snacks in case of lows? INSULIN DOSE SELF BLOOD GLUCOSE / URINE TESTS DATE TYPE OF INSULIN MORNING LUNCH DINNER BEDTIME BEFORE NOON MEAL BEFORE P.M. MEAL BEFORE BEDTIME NOTES Illness; changes in activity or diet; reactions. BEFORE A.M. MEAL 12-Dec Lantus 18 10 123 188 113 439 ate shortly before bed 13-Dec Lantus 18 12 158 224 106 343 ate shortly before bed 14-Dec Lantus 18 0 110 174 179 105 15-Dec Lantus 18 0 176 308 175 96 16-Dec Lantus 18 12 136 85 106 230 Lots of walking done 17-Dec Lantus 18 0 176 112 229 105 Lots of walking done 18-Dec Lantus 18 102 Carolyn Portillo This is my reply: hi, how much humalog or novolog are you taking with food? also, you should not skip the evening lantus since as you note you will be high the next day. why don't we have you take only half the nighttime dose if you are < 100 at bedtime. at this point, i am not sure if your higher numbers are due to too little Lantus in your system or not too little meal time insulin. when you are very active we can have you take less lantus in the morning if you know that you will be more active during the day. The other thing to try is to cut your meal dose in half for meals preceeding more activity thanks for using this form....it is so much easier for me to examine. raffaele schofield documented in this encounter Plan of Treatment Not on file documented as of this encounter Visit Diagnoses Not on filedocumented in this encounter Care Teams Sales Administration Specialist Relationship Specialty Start Date End Date Huseyin Zazueta MD [address] [place] [address] PCP - General 07/16/09 documented as of this encounter
--- OUTSIDE RECORDS SUMMARY | 2024-05-02 15:23 | XMS_ITS | Encounter Summary ---
Author Organization [facility] Address [address] [place] [address] Care Team Providers Care Biofuels Engineering Manager Name Role Phone Huseyin Zazueta MD Primary Care Provider [phone] Reason for Visit * Reason Comments Diabetes Encounter Details Date Type Department Care Team (Late st Contact Info) Description 01/29/2011 15:30 EDT Nurse Only [facility] Endocrinology - [address] [address] Unknown, Provider, Lacie Otto, RN CDE Social History Tobacco Use Types [...] * Patient Instructions* Lacie Nichole RN - 01/29/2011 15:40 EDT Decrease lantus to 16 units in am and 8 units in pm Keep novolog 1:7 for br and lunch and change to 1;6 for supper Keep track of snacking at night- see what bg look like if you eliminate evening snacking Lets' repeat the sensor in 2 weeks Call clinic with any issues documented in this encounter Progress Notes * Lacie Nichole RN - 02/10/2011 1527 EDT Current outpatient prescriptions Medication Sig Dispense Refill ??? insulin glargine (LANTUS SOLOSTAR PEN) 100 unit/mL (3 mL) injection pen Inject into the skin 2 times daily. 18 units in am and 12 units in pm 5 Syringe 11 ??? insulin aspart (NOVOLOG FLEXPEN) 100 unit/mL injection pen Inject into the skin 3 times daily with meals. On a Sliding Scale 1:10 carb ratio appproximately 30 units a day 10 Syringe 3 ??? glucagon (GLUCAGON EMERGENCY) 1 mg injection Inject 1 mg into the vein once for 1 dose. 2 Each 6 ??? simvastatin (ZOCOR) 40 mg tablet Take 40 mg by mouth daily. When she remembers Patient Active Problem List Diagnoses Code ??? DM type 1 (diabetes mellitus, type 1) 250.01AA ??? Smoker 305.1AT pt is here to discuss recent 4 day diagnostic sensor download. Pt was accompanied by her 3 children. I gave pt a copy of the download. I showed her that her blood sugars trend down during the night, some nights rather sharply, and that are relatively stable from 6 am to 9 am. One day she had a dramatic spike up after lunch and usually spikes up high after supper and/or evening snacking. Pt is understandably frustrated with poor glycemic control as well as significant blood glucose variability. She tells me that she would be interested in a pump. She also reports that she would like to change providers. Asssessment: She needs less basal and more bolus for lunch and supper. Snacking appears to be a significant contributor to her high blood sugars. Plan: Decrease lantus to 16 units in am and 8 units in pm Keep novolog 1:7 for br and lunch and change to 1;6 for supper Keep track of snacking at night- see what bg look like if you eliminate evening snacking Let's repeat the sensor in 2 weeks Call clinic with any issues documented in this encounter Plan of Treatment Not on file documented as of this encounter Visit Diagnoses Not on filedocumented in this encounter Care Teams Biofuels Engineering Manager Relationship Specialty Start Date End Date Huseyin Zazueta MD [address] [place] [id number] PCP - General 07/16/09 documented as of this encounter
--- OUTSIDE RECORDS SUMMARY | 2024-05-02 15:23 | XMS_ITS | Encounter Summary ---
Author Organization [facility] Address [address] [place] [address] Care Team Providers Care Fluorescent Lighting Model Maker Name Role Phone Peter Hernández MD Primary Care Provider [phone] Reason for Visit * Reason Comments New Patient Visit RUQ pain Encounter Details Date Type Department Care Team (Late st Contact Info) Description 04/20/2012 13:30 EST Office Visit [facility] General Surgery [facility] [address], [place] [id number] Irvin Porras MD [address] [place] [phone] Continuous RUQ abdominal pain (Primary Dx) Discharge Disposition: Auto Discharge Social [...] Sign Reading Time Taken Comments Blood Pressure 94/64 04/20/2012 1322 EST Pulse 64 04/20/2012 1322 EST Temperature - - Respiratory Rate - - Oxygen Saturation - - Inhaled Oxygen Concentration - - Weight 55.1 kg (121 lb 6.4 oz) 04/20/[address] Height 157.5 cm (5' 2) 04/20/2012 1322 EST Body Mass Index 22.2 04/20/2012 1322 EST documented in this encounter Discharge Disposition Disposition Code Departure Means Destination Auto Discharge documented in this encounter Progress Notes * Irvin Porras MD - 04/20/2012 1353 EST [facility] General Surgery Date: 04/20/2012 Patient: Carolyn Sosa Subjective: Carolyn Sosa is a 31 y.o. female who presents today for RUQ pain New Patient Visit Referred by: PETER HERNÁNDEZ MD Patient History of Present Illness: Patient is a 31 y/o female presenting today for RUQ abdominal pain with a past medical history significant for T1DM (diagnosed 3 years ago) and hypercholesterolemia. She has had the pain for 2 months. It initially was mild and intermittent then became progressively worse with radiating pain to her r ight back. Since last week, after her HIDA scan, the pain has become constant and has increased in severity to the point that she doesn't want to get out of bed. She experiences nausea, but no vomiting. Her symptoms are not associated with eating. She has had both an abdominal ultrasound and a HIDAscan, both of which were normal. She did experience diffuse abdominal pain with CCK injection. The patient's problem list, allergies, immunizations, and medications were documented, reviewed, and updated as follows: Patient Active Problem List Diagnoses ??? Type 1 diabetes mellitus ??? Smoker ??? Pure hypercholesterolemia Allergies: Levemir Immunizations: There is no immunization history on file for this patient. Medications: Current Outpatient Prescriptions Medication Sig Dispense Refill ??? varenicline (CHANTIX) 1 mg tablet Take 1 mg by mouth 2 times daily. ??? insulin aspart (NOVOLOG FLEXPEN) 100 unit/mL [...] 3 ??? blood glucose test strips Brand: [employer] TuneIne. Test 6 times daily 600 Each 3 ??? norelgestromin-ethinyl estradiol (ORTHO EVRA) 150-20 mcg/[address] 1 Patch onto the skin every 7 days. Apply new patch on same day of week for 3 weeks. No patch week 4. ??? glucagon (GLUCAGON EMERGENCY) 1 mg injection Use as directed. 2 Each 6 ??? simvastatin (ZOCOR) 40 mg tablet Take 1 tab by mouth once daily. 90 Tab 3 History was documented as follows: Past Medical History Diagnosis Date ??? Kidney stones ??? hematuria & adbominal pain ??? Diabetes mellitus 07/2009 eye exam annually No past surgical history on file. History Social History ??? Marital Status: Spouse Name: N/A Number of Children: N/A ??? Years of Education: N/A Occupational History ??? Not on file. Social History Main Topics ??? Smoking status: [...] Mother ??? Diabetes Sister Review of Systems: A 11-point review of systems was completed. Constitutional: Negative for fever. HENT: Negative for neck pain. Eyes: Negative for blurred vision. Respiratory: Negative for shortness of breath. Cardiovascular: Negative for chest pain, palpitations and orthopnea. Gastrointestinal: (+) for abdominal pain RUQ. Genitourinary: Negative for dysuria. Skin: Negative for rash. Neurological: Negative for dizziness. Endo/Heme/Allergies: Negative. Psychiatric/Behavioral: Normal. Objective: Physical Examination: Vitals: BP 94/64 Pulse 64 Ht 157.5 cm (62) Wt 55.067 kg (121 lb 6.4 oz) BMI 22.20 kg/m2 Ms Sosa is a pleasant lady who is awake, alert, oriented x3. She did not show any signs of acutedistress. She is not in pain. Her vitals were stable .Nursing note and vitals reviewed. The patientwas examined & the plan was discussed in the present of Medical student Freda Constitutional: She appears well-nourished. No distress. HENT: Normal Head: Atraumatic. Right Ear: External ear normal. Left Ear: External ear normal. Mouth/Throat: Oropharynx is clear and moist. Eyes: Conjunctivae are normal. No scleral icterus. Neck: Neck supple. Cardiovascular: Normal rate, regular rhythm and normal heart sounds. Pulmonary/Chest: Effort normal and breath sounds normal. No respiratory distress. Abdominal: No obvious abdominal scar. . Abdomen soft, lax, no distention, mild RUQ tenderness.Bowelsounds are normal . Musculoskeletal: She exhibits no edema. Neurological: She is alert. Skin: Skin is warm. Psychiatric: She has a normal mood and affect. Her behavior is normal. Judgment and thought contentnormal. I personally reviewed her labs & the US & HIDA reports. Assessment: My impression, based on history and physical exam and interpretation of her tests, is that Ms Sosa is having RUQ pain with Normal GB on US/HIDA which may or may not play a part in her upper abdominal symptoms. The above- mentioned findings & tests results were discussed with her in detail. PLAN: GI consult. If the symptoms persist with uncertain etiology for her pain we will perform laparoscopic and possible open cholecystectomy and possible intraoperative cholangiography. The risks, benefits and alternatives were explained. The operative procedure was discussed including the risks of general anesthetic and medications and the potential risk of complications The risks include but not limited to, infection with abscess formation, bleeding due to injury of the nearby structures, liver, stomach, small, large bowel, common bile duct injury and bile leak. There could also be the need for re-operation. Post-operative recovery was discussed, as well as the need for post surgery follow-up.She understands very well that her GB may or may not play a part in her upper abdominal symptoms & these symptoms may persist after surgery. The patient understand the risks; any and all questions were answered to the patient's satisfaction. She was advised to come to our emergency room if symptoms worsen. She was counseled on avoidance of large, fatty meals. My office will arrange appointment with our GI as per patient request. I would like to thank Dr HERNÁNDEZ,for providing me the opportunity to participate in the management of this patient. Laboratory: Results Only on 04/05/2012 Component Date Value Range Status ??? Pathology Report: 04/05/2012 Final Value:CYTOPATHOLOGY REPORT Reports generated via electronic interface contain original data; however they are lacking the format of the original report. Caution should be taken when reading/interpreting unformatted reports. Name: CAROLYN SOSA : 1980 (Age: 31) F Collect Date: 04/05/2012 Location: [facility] Receive Date: 04/07/2012 Provider: PETER HERNÁNDEZ MD Copy to: Final Report SPECIMEN ADEQUACY Satisfactory for Evaluation - transformation zone component present GENERAL CATEGORIZATION Epithelial Cell Abnormality INTERPRETATION Squamous Cell Abnormality - Atypical squamous cells, undetermined significance (ASC-US). EDUCATIONAL NOTES/RECOMMENDATIONS [facility] recommends following the 2006 Consensus Guidelines for the Management of Women with Abnormal Cervical Cancer Screening Tests (JLGTD, 2007;11(4):201-222). Consensus guidelines are available online at www.ASCCP.org. Specimen/Source: Pap Test, Cervix, ThinPrep Imaging System with manual evaluation Document reviewed and electronically signed by: KWADWO MARCANO MD Report Date: 04/13/2012 14:34 HPV with Pap Test Date Ordered: 04/13/2012 Status: Signed Out Date Complete: 04/17/2012 By: System Interface Date Reported: 04/17/2012 Interpretation RESULT: Negative for HPV. No E6 or E7 mRNA is detected from HPV types 16,18,31,33,35, 39,45,51,52,56,58,59,66, and 68 by word processor mediated amplification. Comments Document reviewed and electronically signed by: System Interface Report date: 04/17/2012 By the signature above, the attending physician certifies that he/she has personally conducted a gross and/or microscopic examination of the described specimens and rendered or confirmed the above diagnosis. End of Report Submitted by: Irvin Giles MD documented in this encounter Plan of Treatment Not on file documented as of this encounter Visit Diagnoses Diagnosis Continuous RUQ abdominal pain- Primary Abdominal pain, right upper quadrant documented in this encounter Historical Medications * This list may reflect changes made after this encounter. varenicline (CHANTIX) 1 mg tablet Take 1 mg by mouth 2 times daily. 05/09/2012 added in this encounter Care Teams Fluorescent Lighting Model Maker Relationship Specialty Start Date End Date Peter Hernández MD [address] [place] [id number] PCP - General 07/16/09 documented as of this encounter
--- OUTSIDE RECORDS SUMMARY | 2024-05-02 15:23 | XMS_ITS | Encounter Summary ---
Author Organization [facility] Address [address] [place] [address] Care Team Providers Care Form Setter Metal Road Forms Name Role Phone Huseyin Zazueta MD Primary Care Provider [phone] Reason for Visit * Reason Onset Date Comments Medications Refill 08/13/2010 Encounter Details Date Type Department Care Team (Late st Contact Info) Description 08/13/2010 Refill [facility] Endocrinology - [address] [address] Jeb Daigle MD [address] [place] [address] [address] [place] [address] Medications Refill Social History Tobacco Use Types Packs/Day Years Used Date Smoking Tobacco: Never Assessed Comments Unknown Sex and Gender Information Value Date Recorded [...] 30 units a day 10 Syringe 3 1 09/27/19 12 documented in this encounter Miscellaneous Notes * Telephone Encounter - Johnathon Garcia - 08/13/2010 1248 EST Verified and escripted to pharmacy novolog and insulin needles. JOHNATHON GARCIA RN * Telephone Encounter - Lisbet Luis - 08/13/2010 1008 EST Pen needles 3/16 BD documented in this encounter Plan of Treatment Not on file documented as of this encounter Visit Diagnoses Diagnosis Type I (juvenile type) diabetes mellitus without mention of complication, not stated as uncontrolled- Primary documented in this encounter Discontinued Medications Medication Sig Discontinue Reason Start Date End Da te insulin aspart (NOVOLOG FLEXPEN) 100 unit/mL injection pen Inject into the skin. On a Sliding Scale 1:10 carb ratio Reorder 08/13/2010 documented as of this encounter Orders General Supply Count Last Ordered Date First Or dered Date INSULIN NEEDLES 1 08/13/2010 documented in this encounter Care Teams Form Setter Metal [employer] Forms Relationship Specialty Start Date End Date Huseyin Zazueta MD [address] [place] [address] PCP - General 07/16/09 documented as of this encounter
--- OUTSIDE RECORDS SUMMARY | 2024-05-02 15:23 | XMS_ITS | Encounter Summary ---
Author Organization [facility] Address [address] [place] [address] Care Team Providers Care Cooking Teacher Name Role Phone Huseyin Zazueta MD Primary Care Provider [phone] Reason for Visit * Reason Comments Diabetes Mellitus Type 1 Encounter Details Date Type Department Care Team (Latest Contact Info) Description 05/04/2010 9:45 EST Office Visit [facility] Endocrinology - [facility] [address] [place] [address] Jeb Daigle MD [address] [facility] [address] [place] [address] DM w/o complication type I, uncontrolled (Primary Dx); Diabetes mellitus, type 1; Pure hypercholesterolemia Social History Tobacco Use Types Packs/Day Years Used Date Smoking Tobacco: Never Assessed Comments Unknown Sex and Gender Information Value Date Recorded Sex Assigned at Not on file Legal Sex Female 18:29 EST Gender Identity Not on file Sexual Orientation Not on file documented as of this encounter Last Filed Vital Signs Vital Sign Reading Time Taken Comments Blood Pressure 112/72 05/04/2010 0939 EST Pulse 72 05/04/2010 0939 EST Temperature - - Respiratory Rate - - Oxygen Saturation - - Inhaled Oxygen Concentration - - Weight 51.3 kg (113 lb) 05/04/2010 0939 EST Height 154.9 cm (5' 1) 05/04/2010 0939 EST Body Mass Index 21.35 05/04/2010 0939 EST documented in this encounter Patient Instructions * Patient Instructions* Jeb Daigle MD - 05/04/2010 9:59 EST Lantus 12 twice daily Novolog 1:7 ratio Only before meals - add NOVOLOG 150 - 200 add 2 units 200-250 4units > 250 add 6 units documented in this encounter Progress Notes * Jeb Daigle MD - 05/04/2010 0941 EST [facility] Diabetes Follow-Up Note CHIEF COMPLAINT: Carolyn Sosa presents with Type I diabetes In addition to that, she has hypercholesterolemia. HPI: Carolyn Sosa recently has a history of being in poor glycemic control. Patient has a history of being compliant most of the time with medical therapy. Results for CAROLYN SOSA ( ) as of 05/04/2010 09:41 Ref. Range 07/17/2009 09:09 09/19/2009 09:26 12/18/2009 09:40 POCT Hgb A1C No range found 10.8 9.1 8.7 And Fructosamine 449 umol/L at last visit (nl 200-285) At time of last visit Regimen was 10 units of Lantus BID , which has been up titrated because of the high blood sugars in the morning and split - ?? Peaking w levemir and her prandial dosing is done with a 1:10 carb ratio for NovoLog, which leads to about 4 or 5 units with each meal. A nd she had having skin reactions at the injection sites of the Levemir. So She was switched to lantus and seemed to be doing better 2 weeks ? BUT FRUCTOSAMINE level shiowed differently !! IHer morning blood sugars are 150 , at lunchtime 200-250 , before supper about 300 , and variable before she goes to bed. When she remembers to check its 300 The patient was also started on simvastatin 20 mg when she was here last, because of persistent hypercholesterolemia and a strong family history of coronary artery disease and high cholesterol but she was not taking it !!! - now says she is Patient's home regimen consists of 1:10 novolog - 1:5 causes hypoglycemia !! And 10 BID Lantus ( noskin reactions) Symptoms- skin infection/vaginitis and has these weekly !!. But denies blurry vision, nocturia, hypoglycemia, diarrhea, constipation, shortness of breath/chest pain, early satiation and numbness/tingling of extremities The patient has experienced the following acute complications: hypoglycemia - feel low at 100 . Eating habits- no specific dietary alterations. Patient's weight has been stable. Wt Readings from Last 3 Encounters: 02/20/2010 49.442 kg (109 lb) Patient is very active.. Patient has the following comorbidities: none. Glucose monitoring: QID. With meter: [employer] Home Blood Glucoses Running: BGs are high in the morning (average 220), BGs are high around lunch (average 250), BGs are high around dinner (average a lot 400s) and BGs are high at HS (average 300). PHYSICAL EXAMINATION: Vitals: There were no vitals taken for this visit. BMI: There is no height or weight on file to calculate BMI. Funduscopic: no retinopathy . Skin: normal. Feet: no ulcers, no abnormal calluses, no structural deformities and intact vibratory sense . Post Tibial and Dorsalis Pedis: normal. Abd - tremendous amt lipohypertrophy- I think - lower abd - almost looks as if she's bit it is adipose tissue LABS: Today 11.2 % A1 c Lab Results Component Value Date HGBA1C 10.0* 02/20/2010 Lab Results Component Value Date CHOL 212 [...] Clinical albuminuria: >300 ug/mg Creat 02/20/2010 ASSESSMENT: 250.03 DIABETES UNCOMPL FOREST-UNCONTRLLED Patient does demonstrate knowledge of diabetes and expectations. Patient does understand medication regimen. Patient has the following barriers to adherence: no barriers identified. BUT...perplexing - that storm is hypoglycemic at 1:5 carb ratio yet with 1:10 runs 400 !!!!!!!!! Goals: Systolic blood pressure less than 130. And diastolic blood pressure less than 80. Hemoglobin A1C less than 7%. LDL cholesterol: 70 to 99. PLAN: Lantus 12 twice daily Novolog 1:7 ratio Only before meals - add NOVOLOG 150 - 200 add 2 units 200-250 4units > 250 add 6 units Glucose monitoring QID. Patient education already provided. Return in 2 weeks. Jeb Daigle MD 05/04/2010 9:39 documented in this encounter Plan of Treatment Not on file documented as of this encounter Procedures Procedure Name Priority Date/Time Associated Diagnosis Comments POCT HEMOGLOBIN A1C Routine 05/04/2010 1 1:08 EST Diabetes mellitus, type 1 documented in this encounter Results * (ABNORMAL) POCT HEMOGLOBIN A1C (05/04/2010 11:08 EST) Hemoglobin A1c, POC 11.2(A) <=5.7 POINT OF CARE 05/04/2010 11:0 8 EST Jeb Daigle MD POINT OF CARE TEST ORDERAB LES Final Result POINT OF CARE documented in this encounter Visit Diagnoses Diagnosis Type I (juvenile type) diabetes mellitus without mention of complication, uncontrolled- Primary Diabetes mellitus, type 1 Type I (juvenile type) diabetes mellitus without mention of complication, not stated as uncontrolled Pure hypercholesterolemia documented in this encounter Discontinued Medications Medication Sig Discontinue Reason Start Date End Da te simvastatin (ZOCOR) 20 mg tablet Take 20 mg by mouth at bedtime. Dose adjustment 05/04/2010 documented as of this encounter Historical Medications * This list may reflect changes made after this encounter. simvastatin (ZOCOR) 40 mg tablet Take 40 mg by mouth daily. When she remembers 2 added in this encounter Care Teams Cooking Teacher Relationship Specialty Start Date End Date Huseyin Zazueta MD [address] [place] [id number] PCP - General 07/16/09 documented as of this encounter
--- OUTSIDE RECORDS SUMMARY | 2024-05-02 15:23 | XMS_ITS | Encounter Summary ---
Author Organization [facility] Address [address] [place] [address] Care Team Providers Care Gravity Flow Irrigator Name Role Phone Huseyin Zazueta MD Primary Care Provider [phone] Encounter Details Date Type Department Care Team (Late st Contact Info) Description 02/18/2010 Abstract [facility] Endocrinology - [facility] [address] [place] [address] Jeb Daigle MD [address] [facility] [address] [place] [address] Social History Tobacco Use Types Packs/Day Years [...] Diagnoses Not on filedocumented in this encounter Historical Medications * This list may reflect changes made after this encounter. insulin aspart (NOVOLOG FLEXPEN) 100 unit/mL injection pen Inject into the skin. On a Sliding Scale 1:10 carb ratio 08/13/2010 Insulin Detemir (LEVEMIR FLEXPEN) 100 unit/mL InPn Inject into the skin. As directed by flow sheet18 units at bedtime 02/20/2010 simvastatin (ZOCOR) 20 mg tablet Take 20 mg by mouth at bedtime. 05/04/2010 added in this encounter Care Teams Gravity Flow Irrigator Relationship Specialty Start Date End Date Huseyin Zazueta MD [address] [place] [address] PCP - General 07/16/09 documented as of this encounter
--- OUTSIDE RECORDS SUMMARY | 2024-05-02 15:23 | XMS_ITS | Encounter Summary ---
Author Organization [facility] Address [address] [place] [address] Care Team Providers Care Recovery Coordinator Name Role Phone Huseyin Zazueta MD Primary Care Provider [phone] Reason for Visit * Reason Onset Date Comments Paperwork request 12/23/2010 Encounter Details Date Type Department Care Team (Late st Contact Info) Description 12/23/2010 Telephone [facility] Endocrinology - [facility] [address] [place] [address] Jeb Daigle MD [address] [facility] [address] [place] [address] Paperwork request Social History Tobacco Use Types [...] Miscellaneous Notes * Telephone Encounter - Lisbet Luis - 12/23/2010 1316 EDT Pt came in got all results * Telephone Encounter - Navya Bermudez - 12/23/2010 0817 EDT Pt is requesting a copy of all her A1C results, she would like to order picker today around noon, pleasecall if this is not possible. documented in this encounter Plan of Treatment Not on file documented as of this encounter Visit Diagnoses Not on filedocumented in this encounter Care Teams Recovery Coordinator Relationship Specialty Start Date End Date Huseyin Zazueta MD [address] [place] [address] PCP - General 07/16/09 documented as of this encounter
--- OUTSIDE RECORDS SUMMARY | 2024-05-02 15:23 | XMS_ITS | Encounter Summary ---
Author Organization [facility] Address [address] [place] [address] Care Team Providers Care Traffic Rate Analyst Name Role Phone Huseyin Zazueta MD Primary Care Provider [phone] Encounter Details Date Type Department Care Team (Late st Contact Info) Description 12/18/2009 Results Only [facility] Endocrinology - [facility] [address] [place], [place] [phone] Jeb Daigle MD [address] [facility] [address] [place] [address] Social History Tobacco Use Types [...] Procedure Name Priority Date/Time Associated Diagnosis Comments ZZHEMOGLOBIN A1C Routine 12/18/2009 9:40 EDT documented in this encounter Results * HEMOGLOBIN A1C (12/18/2009 9:40 EDT) POCT Hgb A1C 8.7 % [facility] Comment: Reference Range: <6% Normal range ADA guidelines: The A1c goal for non adults in general is <7%. The A1c goal for selected individual patients is as close to normal (<6%) as possible without significant hypoglycemia. Test Performed at [facility] 12/18/2009 9:40 EDT 12/30/2009 9:12 EDT us Jeb Daigle MD CHEMISTRY & BLOOD GAS TOO PATEL Final Result [facility] [address] [place] [address] documented in this encounter Visit Diagnoses Not on filedocumented in this encounter Care Teams Traffic Rate Analyst Relationship Specialty Start Date End Date Huseyin Zazueta MD [address] [place] [address] PCP - General 07/16/09 documented as of this encounter
--- OUTSIDE RECORDS SUMMARY | 2024-05-02 15:23 | XMS_ITS | Encounter Summary ---
Author Organization [facility] Address [address] [place] [address] Care Team Providers Care Service Tech/Welder Name Role Phone Huseyin Zazueta MD Primary Care Provider Encounter Details Date Type Department Care Team (Late st Contact Info) Description 09/19/2009 Results Only [facility] Endocrinology - [facility] [address] [place], [place] [phone] Jeb Daigle MD [address] [facility] [address] [place] [address] Social History Tobacco Use Types [...] Date/Time Associated Diagnosis Comments ZZHEMOGLOBIN A1C Routine 09/19/2009 9:26 EDT documented in this encounter Results * HEMOGLOBIN A1C (09/19/2009 9:26 EDT) POCT Hgb A1C 9.1 % [facility] Comment: Reference Range: <6% Normal range ADA guidelines: The A1c goal for non adults in general is <7%. The A1c goal for selected individual patients is as close to normal (<6%) as possible without significant hypoglycemia. Test Performed at [facility] 09/19/2009 9:26 EDT 09/23/2009 12:11 EDT us Jeb Daigle MD CHEMISTRY & BLOOD GAS TOO PATEL Final Result [facility] [address] [place] [address] documented in this encounter Visit Diagnoses Not on filedocumented in this encounter Care Teams Service Tech/Welder Relationship Specialty Start Date End Date Huseyin Zazueta MD [address] [place] [address] PCP - General 07/16/09 documented as of this encounter
--- OUTSIDE RECORDS SUMMARY | 2024-05-02 15:23 | XMS_ITS | Encounter Summary ---
Author Organization [facility] Address [address] [place] [address] Care Team Providers Care Dietitian Research Name Role Phone Huseyin Zazueta MD Primary Care Provider [phone] Reason for Visit * Reason Comments Diabetes Encounter Details Date Type Department Care Team (Latest Contact Info) Description 01/13/2012 8:[address] [facility] Endocrinology - [address] [phone] Unknown, Provider, Lacie Otto, RN CDE Diabetes mellitus type 1, uncontrolled ([facility]) (Primary Dx) Social History Tobacco Use Types [...] Sign Reading Time Taken Comments Blood Pressure 98/62 01/13/2012 0825 EDT Pulse 84 01/13/2012 0825 EDT Temperature - - Respiratory Rate - - Oxygen Saturation - - Inhaled Oxygen Concentration - - Weight 56 kg (123 lb 8 oz) 01/13/2012 0825 EDT Height 154.9 cm (5' 1) 01/13/2012 0825 EDT Body Mass Index 23.34 01/13/2012 0825 EDT documented in this encounter Patient Instructions * Patient Instructions* Lacie Nichole RN - 01/13/2012 8:46 EDT i will process sensor application No insulin changes today Call clinic with any problems Wear a Medic alert documented in this encounter Progress Notes * Laice Nichole RN - 01/13/2012 1025 EDT BP 98/62 Pulse 84 Ht 154.9 cm (61) Wt 56.019 kg (123 lb 8 oz) BMI 23.34 kg/m2 Current Outpatient Prescriptions Medication Sig Dispense Refill ??? insulin pen needles 31G x 5/16 Use 5 daily. 500 Each 3 ??? blood glucose test strips Brand: CenTrakstyle Lite. Test 6 times daily 600 Each 3 ??? insulin aspart (NOVOLOG FLEXPEN) 100 unit/mL injection pen Inject into the skin 3 times daily with meals. 1 to 5 carb ratio ??? norelgestromin-ethinyl estradiol (ORTHO EVRA) 150-20 mcg/[address] 1 Patch onto the skin every 7 days. Apply new patch on same day of week for 3 weeks. No patch week 4. ??? glucagon (GLUCAGON EMERGENCY) 1 mg injection Use as directed. 2 Each 6 ??? simvastatin (ZOCOR) 40 mg tablet Take 1 tab by mouth once daily. 90 Tab 3 ??? insulin glargine (LANTUS SOLOSTAR PEN) 100 unit/mL (3 mL) injection pen Inject into the skin 2 times daily. 18 units in am and 12 units in pm 5 Syringe 11 Patient Active Problem List Diagnoses ??? DM type 1 (diabetes mellitus, type 1) ??? Smoker ??? Pure hypercholesterolemia Pt is here for assessment of glycemic control. Meter download indicates significant variability with no discernable pattern. Pt is checking blood sugars at least qid. Pt states that she is taking all of her insulin injections and feels that her carb counting is accurate. Pt reports that she does not detect lows until < 50. She is carrying sugar with her but is not currently wearing a medic alert. Pt thinks that a glucose sensor would be useful and I agree. Assessment: Poor glycemic control. Pt would benefit from use of sensor to alert her to impending lows as well as for pattern management. Plan: i will process sensor application No insulin changes today Call clinic with any problems Wear a Medic alert No barriers to education noted. Pt verbalized understanding. Time spent with patient: 30 minutes. I was supervised by Dr Lozano Icd= 250.03 documented in this encounter Plan of Treatment Not on file documented as of this encounter Visit Diagnoses Diagnosis Diabetes mellitus type 1, uncontrolled- Primary Type I (juvenile type) diabetes mellitus without mention of complication, uncontrolled documented in this encounter Care Teams Dietitian Research Relationship Specialty Start Date End Date Huseyin Zazueta MD [address] [place] [address] PCP - General 07/16/09 documented as of this encounter
--- OUTSIDE RECORDS SUMMARY | 2024-05-02 15:23 | XMS_ITS | Encounter Summary ---
Author Organization [facility] Address [address] [place] [address] Care Team Providers Care Hogshead Opener Name Role Phone Huseyin Zazueta MD Primary Care Provider [phone] Encounter Details Date Type Department Care Team (Latest Contact Info) Description 07/15/2011 8:07 EST - 07/15/2011 23:59 EST Hospital Encounter [facility] [address] [place] [address] Unknown, Provider, Carlin Woody MD [address] [place] [address], [address] [address] Discharge Disposition: Auto Discharge Social [...] this encounter Medications at Time of Discharge glucagon (GLUCAGON EMERGENCY) 1 mg injection Use as directed. 2 Each 6 07/07/2011 3 insulin aspart (NOVOLOG FLEXPEN) 100 unit/mL injection pen Inject into the skin 3 times daily with meals. On a Sliding Scale 1:10 carb ratio appproximately 30 units a day 10 Syringe 3 08/13/2010 2 insulin glargine (LANTUS SOLOSTAR PEN) 100 unit/mL (3 mL) injection pen Inject into the skin 2 times daily. 18 units in am and 12 units in pm 5 Syringe 11 01/12/2011 2 simvastatin (ZOCOR) 40 mg tablet Take 1 tab by mouth once daily. 90 Tab 3 07/07/2011 2 documented as of this encounter Discharge Disposition Disposition Code Departure Means Destination Auto Discharge Home documented in this encounter Plan of Treatment Not on file documented as of this encounter Visit Diagnoses Not on filedocumented in this encounter Care Teams Hogshead Opener Relationship Specialty Start Date End Date Huseyin Zazueta MD [address] [place] [address] PCP - General 07/16/09 documented as of this encounter
--- OUTSIDE RECORDS SUMMARY | 2024-05-02 15:23 | XMS_ITS | Encounter Summary ---
Author Organization [facility] Address [address] [place] [address] Care Team Providers Care Meat Hanger Name Role Phone Huseyin Zazueta MD Primary Care Provider [phone] Reason for Visit * Reason Onset Date Comments Diabetes 01/04/2011 Encounter Details Date Type Department Care Team (Late st Contact Info) Description 01/04/2011 Telephone [facility] Endocrinology - [address] [phone] Raffaele Nichole RN CDE Diabetes Social History [...] Telephone Encounter - Raffaele Nichole RN - 01/04/2011 0823 EDT Images from the original note were not included. email from pt: Angela Medellin, Wanted to give you my numbers for the past couple of days. Seems I've been running high but I have not taken the extra 10% of novolog. I forget that my numbers will potentially run higher while I am on the medications/sick. As usual, I am doing Lantus at 18 units AM and 12 units PM. Novolog on a 1-7 ratio with correction of 2 units if 150-200, 4 units if 200-250 and 6 units if higher than 250. INSULIN DOSE SELF BLOOD GLUCOSE / URINE TESTS DATE TYPE OF INSULIN MORNING LUNCH DINNER BEDTIME BEFORE NOON MEAL BEFORE P.M. MEAL BEFORE BEDTIME NOTES Illness; changes in activity or diet; reactions. BEFORE A.M. MEAL 121 197 126 137 76 @ 1AM 118 112 190 316 148 187 223 218 230 259 305 54 at 9:30 AM- no novolog taken or valid reason to have crashed. Hypo symtoms came on extremely fast. Had I taken my usual Novolog with my coffee, I feel like I would have been in trouble. 95 296 234 342 129 I am very scared of the unpredictability of the insulin affects. It seems like I can do everything that I am instructed and go high regardless. I can also do everything I'm told and have a low like Idid on Tuesday. After a low, I become very tired, and lose all ambition for the day. My low on Tuesday came on fast and hard, I wasn't able to walk and had to rely on a co-worker to help me get carbs in my system. I wouldn't have been so upset about it if I had taken novolog since that is a risk withthe fast acting at any time. I tell you this because I would like to know what could have happened to have dropped me like that. Carolyn Portillo This is my reply: angela keith, hope that you are feeling better and that the abcess is cleared up...would you like to come in on tuesday afternoon for the sensor? i am not sure why you got so low on 12/28- has to be the amount of lantus since you had not taken any novolog yet.... one thing that we can think about is to decrease the amount of lantus but to increase the novolog. but would like to wait until we get the results of the sensor. chandu, raffaele documented in this encounter Plan of Treatment Not on file documented as of this encounter Visit Diagnoses Not on filedocumented in this encounter Care Teams Meat Hanger Relationship Specialty Start Date End Date Huseyin Zazueta MD [address] [place] [address] PCP - General 07/16/09 documented as of this encounter
--- OUTSIDE RECORDS SUMMARY | 2024-05-02 15:23 | XMS_ITS | Encounter Summary ---
Author Organization [facility] Address [address] [place] [address] Care Team Providers Care Supervisor Edging Name Role Phone Huseyin Zazueta MD Primary Care Provider [phone] Reason for Visit * Reason Comments Diabetes Encounter Details Date Type Department Care Team (Latest Contact Info) Description 12/28/2011 15:20 EDT Office Visit [facility] Endocrinology - [address] [address] Carlin Manriquez MD [address] [place] [address], [address] [address] DM w/o complication type I (Primary Dx); Pure hypercholesterolemia Social History Tobacco [...] Reading Time Taken Comments Blood Pressure 92/62 12/28/2011 1514 EDT Pulse 76 12/28/2011 1514 EDT Temperature - - Respiratory Rate - - Oxygen Saturation - - Inhaled Oxygen Concentration - - Weight 56.2 kg (124 lb) 12/28/2011 1514 EDT Height 154.9 cm (5' 1) 12/28/2011 1514 EDT Body Mass Index 23.43 12/28/2011 1514 EDT documented in this encounter Patient Instructions * Patient Instructions* Carlin Manriquez - 12/28/2011 15:52 EDT Images from the original note were not included. Please refer for an appointment with Lacie ash available for considering an insulin pump. I also want her to be considered for CGM. Let's try reducing the morning Lantus from 20 to 18 units. Keep using a 1:6 carb ratio for now plus correction if your glucose is high. Feel free to call and run some numbers by me if you want to. [phone]. Your Hemoglobin A1C What is an A1C? [...] the number mean? My A1C level is 9.0% That means that my average blood sugar is around 220 My A1C goal for the next 3 months is less than 8.0% and few lows Goal for most people 6.5 - 7% My responsibility is: 1. Be sure it is measured every 3 - 4 months 2. Know my goal and current level 3. Know what to do to achieve A1C goal documented in this encounter Progress Notes * Carlin Manriquez - 12/29/2011 1336 EDT [facility] Diabetes Follow-Up Note SUBJECTIVE: Patient ID: Carolyn Sosa is an 31 y.o. female. CHIEF COMPLAINT: Carolyn Sosa presents with Diabetes. Diabetes She presents for her follow-up diabetic visit. She has type 1 diabetes mellitus. MedicAlert identification noted. The initial diagnosis of diabetes was made 18 months (diagnosed 07/2011 and JOHNNY+) ago.Her disease [...] has had a previous visit with a fitness/wellness director. She rarely participates in exercise. Her home blood glucose trend is fluctuating dramatically. An KENDRICK inhibitor/angiotensin II receptor tori is not being taken. She does not see a director part.Eye exam is current. Carolyn is frustrated today that her hemoglobin A1c is 9.0% which is down from 9.8% at her last visit, but she thought it would be much better than that. She has fairly dramatic fluctuations in her blood sugars in general, and she seems unable to identify a pattern in order to fix it. Currently she is using Lantus insulin 20 units in the morning and 10 units in the evening, and NovoLog insulin witha carb ratio of 1-6, as well as a correction factor that ranges from 0-5 units. She almost always uses insulin with each meal, unless she begins the meal with a glucose of less than 95, and then she might use none. Last night she actually skipped her nighttime Lantus dose because she had a blood sugar around 100, and she was scared she would go low, but she woke up this morning with a blood sugarof 299. She has fairly dramatic both highs and lows with glucoses in the 40s and 50s, and glucoses up to 400. She normally can tell what spikes her high, but sometimes she cannot anticipate a low number. She is stressed out as usual. 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 She generally speaking does not forget her insulin,but she is having a lot of trouble regulating her numbers. She is sexually active and is on a birthcontrol patch. In addition she has hypercholesterolemia and is on statin. She does not have hypertension or microalbuminuria, so she is not on an KENDRICK inhibitor or an ARB. Results for CAROLYN SOSA ( ) as of 12/29/2011 13:42 Ref. Range 12/09/2010 11:59 02/18/2011 14:22 05/20/2011 14:04 07/15/2011 08:19 08/27/2011 15:45 Hemoglobin A1C No range found 12.0 Hemoglobin A1c, POC Latest Range: High: 5.7 8.4 (A) 10.3 (A) 9.8 (A) In addition, patient reports no additional symptoms and denies no additional symptoms. Psychosocial, cultural, or economic factors that might influence management of diabetes include: none. Carolyn has DM type 1 (diabetes mellitus, type 1); Smoker; and Pure hypercholesterolemia on her problem list. The patient reports that she has been smoking. She has never used smokeless tobacco. She reports that she drinks alcohol. Carolyn has a current medication list which includes the following prescription(s): insulin aspart, norelgestromin-ethinyl estradiol, glucagon, simvastatin, and insulin glargine. Allergies include: Levemir Review of Systems Constitutional: [...] LABS: Lab Results Component Value Date HGBA1C 9.8* 08/27/2011 Lab Results Component Value Date CHOL 228 07/15/2011 HDL 43 07/15/2011 LDLBASE 171 07/15/2011 TRIG 68 07/15/2011 CHOLHDL 5.3 07/15/2011 Lab Results Component Value Date BUN 11 07/15/2011 CREATININE 0.62 07/15/2011 NA 140 07/15/2011 K 4.5 07/15/2011 Lab Results Component Value Date ALT 22 07/15/2011 Lab Results Component Value Date LABALBU 4.1 07/15/2011 UCREA 111.9 07/15/2011 MICRALBCRRAT 6.3 07/15/2011 ASSESSMENT: 1. DM w/o complication type I 2. Pure hypercholesterolemia Carolyn is a very nice and fairly sophisticated but frustrated 31-year-old with type 1 diabetes. Since we split her Lantus dose she thought things were getting a little bit better, but now she is not so sure. Currently she is using 20 units in the morning and 10 at night. She says she is fairly certain that her blood sugar drops in general a little bit overnight but not a lot, so she is actually very comfortable with the 10 units at night. She certainly does not want to increase this but she think she can handle all of it. In regards to her daytime Lantus dose she does think that if she did noteat breakfast or lunch she would get a low blood sugar around 2 PM. She thinks that her carb ratio of 1-6 is actually working fairly well. She admits to inconsistent eating habits and says this is not likely to change. She stays incredibly busy as a single mother with 3 children working a full-timejob, and is just doing the best she can. She and I have talked at length [...] added injections or not what she needs. Am going to refer her to one of our CDE's Lacie Nichole for consideration of a continuous glucose monitor to see if we can find some patterns and trends, and to consider an insulin pump. She is verythin and active, and I suspect the Lantus insulin absorption justice working for her. She is up-to-date on diabetes screening, takes a statin for hypercholesterolemia, and does not havean indication for an KENDRICK inhibitor. She continues to smoke and I have counseled her again about stopping smoking. She says she is interested in trying and may try very soon. I plan to see her back in3 months or sooner as needed, and hopefully she can get a sensor and possibly even a pump in the near future. My exit recs: Let's try reducing the morning Lantus from 20 to 18 units. Keep using a 1:6 carb ratio for now pluscorrection if your glucose is high. Feel free to call and run some numbers by me if you want to. [phone]. Patient demonstrates knowledge of diabetes and expectations. Patient understands medication regimen. Barriers to adherence: [...] Referred to diabetic education program. Referred to fitness/wellness director yes has been in the past and doesn't see further benefit. Patient referred to eye care provider for annual dilated eye exam. Lifestyle modifications: recommend exercise and recommend compliance with a diabetic diet Return in three months. Carlin Manriquez MD 12/29/2011 13:36 * Aury Mccallum - 12/28/2011 1413 EDT Fingerstick blood sample obtained for POCT Hemoglobin A1C performed for this DOS at the order of Dr. Manriquez. documented in this encounter Plan of Treatment Not on file documented as of this encounter Procedures Procedure Name Priority Date/Time Associated Diagnosis Comments POCT HEMOGLOBIN A1C Routine 12/28/2011 1 5:27 EDT DM w/o complication type I documented in this encounter Results * (ABNORMAL) POCT HEMOGLOBIN A1C (12/28/2011 15:27 EDT) Hemoglobin A1c, POC 9.0(A) <=5.7 POINT OF CARE 12/28/2011 15:2 7 EDT us Carlin Manriquez MD POINT OF [...] 1-5 units 3 times daily with meals Dose adjustment 09/27/2011 12/28/2011 documented as of this encounter Historical Medications * This list may reflect changes made after this encounter. norelgestromin-et hinyl estradiol (ORTHO EVRA) 150-20 mcg/[address] 1 Patch onto the skin every 7 days. Apply new patch on same day of week for 3 weeks. No patch week 4. 04/03/2013 insulin aspart (NOVOLOG FLEXPEN) 100 unit/mL injection pen Inject into the skin 3 times daily with meals. 1 to 5 carb ratio 02/14/2012 added in this encounter Care Teams Supervisor Edging Relationship Specialty Start Date End Date Huseyin Zazueta MD [address] [place] [address] PCP - General 07/16/09 documented as of this encounter
--- OUTSIDE RECORDS SUMMARY | 2024-05-02 15:23 | XMS_ITS | Encounter Summary ---
Author Organization [facility] Address [address] [place] [address] Care Team Providers Care Securities Clerk Name Role Phone Huseyin Zazueta MD Primary Care Provider [phone] Reason for Visit * Reason Onset Date Comments Blood Sugar Problem 02/19/2010 Encounter Details Date Type Department Care Team (Late st Contact Info) Description 02/19/2010 Telephone [facility] Endocrinology - [address] [address] Glenna Patrick LPN Blood Sugar Problem Social History Tobacco Use Types Packs/Day Years Used Date Smoking Tobacco: Never Assessed Comments Unknown Sex and Gender Information Value Date Recorded Sex Assigned at Not on file Legal Sex Female 18:29 EST Gender Identity Not on file Sexual Orientation Not on file documented as of this encounter Miscellaneous Notes * Telephone Encounter - Glenna aPtrick LPN - 02/19/2010 1414 EDT Call from pt states she's still showing high ketones and BS is 200, and she's feeling nauseated. Asked if she's drinking a lot of fluids, states yes a lot of coffee. Advised pt to stop drinking coffee and if able drink lots of water. Pt states she talked w/ Dr. Desir Tuesday noc. She has been spilling lg ketones since last Tuesday. Talked w/ on-call MD Dr. Desir Advised if able, to drink lots of fluids(water) and if ketones remain needs to go to ER for fluids today. Pt advised. Then pt states well I have appt w/ Dr. Daigle tomorrow @ 9:30.I told her that didn't matter if ketones remain go to ER. GLENNA PATRICK LPN 02/19/2010 14:09 documented in this encounter Plan of Treatment Not on file documented as of this encounter Visit Diagnoses Not on filedocumented in this encounter Care Teams Securities Clerk Relationship Specialty Start Date End Date Huseyin Zazueta MD [address] [place] [address] PCP - General 07/16/09 documented as of this encounter
--- OUTSIDE RECORDS SUMMARY | 2024-05-02 15:23 | XMS_ITS | Encounter Summary ---
Author Organization [facility] Address [address] [place] [address] Care Team Providers Care Schedule Manager Name Role Phone Huseyin Zazueta MD Primary Care Provider [phone] Reason for Visit * Reason Onset Date Comments Diabetes 12/25/2010 Encounter Details Date Type Department Care Team (Late st Contact Info) Description 12/25/2010 Telephone [facility] Endocrinology - [address] [id number] Raffaele Nichole RN CDE Diabetes Social History [...] Telephone Encounter - Raffaele Nichole RN - 12/25/2010 4503 EDT Reply from pt: It was 121 this morning when I woke up and I haven't eaten anything yet. I had a low last night at around 2am of 76 so I ate and took 2 units less than what I normally would. Also, I went to my PC yesterday for an infected abscess. They also did a urine test because I have been peeing at least once every hour and we wanted to rule out another UTI. The urine came out completely clean with no glucose or keytones despite the fact that I was well above 200 until late afternoon. Shouldn't there have been some glucose? The only thing they found was traces of protein. Carolyn Portillo This is my reply: angela keith, i agree that it is suprising that there was no trace of glucose in the urine... are you now on antibiotics for the abcess? i am wondering if you would like to wear a 3 day continuous glucose sensor so that we can get a complete pattern day and night for a few days...we can offer this to you free of charge....let me know.... if over the weekend you see that you are running higher call the clinic....you may want to take some extra novolog at meal times for the next 2 days until the abcess clears- start with 10 - 15% more. raffaele * Telephone Encounter - Raffaele Nichole RN - 12/25/2010 0936 EDT email to pt: Angela Medellin, I woke up this morning a little on the high side (230) I assume because I didn't test before bed leonora sure that I took enough insulin with my meal. To try to reverse my morning high, I took my regular 18 units of Lantus this morning with an additional 5 units of Novolog with my morning coffee (cream+splenda=carbs) 1 unit for coffee on a 1-7 ration, 4 units for correction per my instructions. Insulin was taken around 8:30. I just tested and blood sugar has risen to 321. What did I do wrong? Carolyn Portillo This is my reply: angela keith, hard to say what is going on...go ahead and test and let me know what your sugar is now.... raffaele documented in this encounter Plan of Treatment Not on file documented as of this encounter Visit Diagnoses Not on filedocumented in this encounter Care Teams Schedule Manager Relationship Specialty Start Date End Date Huseyin Zazueta MD [address] [place] [address] PCP - General 07/16/09 documented as of this encounter
--- OUTSIDE RECORDS SUMMARY | 2024-05-02 15:23 | XMS_ITS | Encounter Summary ---
Author Organization [facility] Address [address] [place] [address] Care Team Providers Care Sharepoint Manager Name Role Phone Peter Hernández MD Primary Care Provider [phone] Encounter Details Date Type Department Care Team (Late st Contact Info) Description 09/23/2009 Results Only [facility] Laboratory Services - [facility] [place] [address] [place] [address] Peter Hernández MD [address] [place], [place] [phone] Social History Tobacco Use Types Packs/Day Years [...] Procedure Name Priority Date/Time Associated Diagnosis Comments CYTOPATHOLOGY Routine 09/23/2009 0:00 EDT documented in this encounter Results * CYTOPATHOLOGY (09/23/2009 0:00 EDT) Pathology Report: CYTOPATHOLOGY REPORT ? Reports generated via electronic interface contain original data; ? however they are lacking the format of the original report. ? Caution should be taken when reading/interpreti ng unformatted reports. ? Name: ? CAROLYN PARNELL ? Accession #: ? [id number] ? : ? 1980 (Age: 28) ??F ?Collect Date: ? 09/23/2009 ? Location: ? [facility] ? Receive Date: ? 09/25/2009 ? Provider: ?PETER HERNÁNDEZ MD ? Copy to: ? Specimen/Source: ?Pap Test, Cervix/Endocervix, ThinPrep Imaging System ? with manual evaluation ? Last Menstrual Period: ? Hormonal/Contracep tive Status: ? Intrauterine device ? Other: ? HPVA - HPV testing requested if ASC-US on the current ThinPrep Pap test. ? SPECIMEN ADEQUACY ? Satisfactory for Evaluation ? - transformation zone component present ? GENERAL CATEGORIZATION ? Negative for Intraepithelial Lesion or Malignancy ? Document reviewed and electronically signed by: ? Lacy Gonzalez, CT(ASCP)(IAC) ? Report Date: ??09/30/2009 10:15 ? End of Report ? [facility] 09/23/2009 09/25/2009 us Peter Hernández MD PATHOLOGY ORDERABLES Final Resu lt [facility] [address] [place] [address] documented in this encounter Visit Diagnoses Not on filedocumented in this encounter Care Teams Sharepoint Manager Relationship Specialty Start Date End Date Peter Hernández MD [address] [place] [address] PCP - General 07/16/09 documented as of this encounter
--- OUTSIDE RECORDS SUMMARY | 2024-05-02 15:23 | XMS_ITS | Encounter Summary ---
Author Organization [facility] Address [address] [place] [address] Care Team Providers Care Interpretive Naturalist Name Role Phone Huseyin Zazueta MD Primary Care Provider [phone] Reason for Visit * Reason Comments Blood Sugar Problem followup Encounter Details Date Type Department Care Team (Latest Contact Info) Description 05/20/2010 8:30 EST Office Visit [facility] Endocrinology - [facility] [address] [place] [address] Jeb Daigle MD [address] [facility] [address] [place] [address] DM w/o complication type I, [...] Sign Reading Time Taken Comments Blood Pressure 94/60 05/20/2010 0833 EST Pulse 88 05/20/2010 0833 EST Temperature - - Respiratory Rate - - Oxygen Saturation - - Inhaled Oxygen Concentration - - Weight 51.3 kg (113 lb) 05/20/2010 0833 EST Height 154.9 cm (5' 1) 05/20/2010 0833 EST Body Mass Index 21.35 05/20/2010 0833 EST documented in this encounter Patient Instructions * Patient Instructions* Jeb Daigle MD - 05/20/2010 8:58 EST Lantus 12 twice daily Novolog 1:7 ratio Only before meals - add NOVOLOG 150 - 200 add 2 units 200-250 4units > 250 add 6 units documented in this encounter Progress Notes * Jeb Daigle MD - 05/20/2010 0838 EST [facility] Diabetes Follow-Up Note CHIEF COMPLAINT: Carolyn Portillo presents with Type I very poorly controlled We are maing all out effort to get her to euglycemia - comes in after last being seen 2 weeks ago! HPI: Carolyn Portillo recently has a history of being in poor glycemic control. Patient has a history of being compliant all of the time with medical therapy. As of last visit 2 weeks ago Patient's home regimen consists of . Lantus 12 twice daily Novolog 1:7 ratio Only before meals - add NOVOLOG 150 - 200 add 2 units 200-250 4units > 250 add 6 units Glucose monitoring QID. Symptoms- nocturia. But denies blurry vision, increased fatigue, polydipsia/increased drinking, polyphagia, polyuria, poor wound healing, weight loss, skin infection/vaginitis, diarrhea, constipation, shortness of breath/chest pain, early satiation, numbness/tingling of extremities and much better ! The patient has experienced the following acute complications: none. Eating habits- no specific dietary alterations. Patient's weight has been stable. Wt Readings from Last 3 Encounters: 05/20/2010 51.256 kg (113 lb) 05/04/2010 51.256 kg (113 lb) 02/20/2010 49.442 kg (109 lb) Patient is very active.. Patient has the following comorbidities: none. Glucose monitoring: QID. Home Blood Glucoses Running: BGs are high in the morning (average 150), BGs are high around lunch (average 125), BGs are high around dinner (average 150) and BGs are high at HS (average 115). PHYSICAL EXAMINATION: Vitals: BP 94/60 Pulse 88 Ht 154.9 cm (61) Wt 51.256 kg (113 lb) BMI: Body mass index is 21.35 kg/(m^2). Funduscopic: no retinopathy. Skin: normal. Feet: no ulcers, no abnormal calluses, no structural deformities and nl vibration. Post Tibial and Dorsalis Pedis: normal. . LABS: FBS: Lab Results Component Value Date HGBA1C 11.2* 05/04/2010 Lab Results Component Value Date CHOL 212 [...] Patient has the following barriers to adherence: worried about lows middle of nite as a single mom Goals: Systolic blood pressure less than 130. And diastolic blood pressure less than 80. Hemoglobin A1C less than 7%. LDL cholesterol: 70 to 99 will further check next visit PLAN: Lantus 12 twice daily Novolog 1:7 ratio Only before meals - add NOVOLOG 150 - 200 add 2 units 200-250 4units > 250 add 6 units Lifestyle modifications: try to stop smoking Return in mid jul . Jeb Daigle MD 05/20/2010 8:37 documented in this encounter Plan of Treatment Not on file documented as of this encounter Visit Diagnoses Diagnosis Type I (juvenile type) diabetes mellitus without mention of complication, uncontrolled- Primary Pure hypercholesterolemia documented in this encounter Historical Medications * This list may reflect changes made after this encounter. amoxicillin-clavu lanate (AUGMENTIN) 875-125 mg per tablet Take 1 Tab by mouth every 12 hours. 07/07/2010 added in this encounter Care Teams Interpretive Naturalist Relationship Specialty Start Date End Date Huseyin Zazueta MD [address] [place] [address] PCP - General 07/16/09 documented as of this encounter
--- OUTSIDE RECORDS SUMMARY | 2024-05-02 15:23 | XMS_ITS | Encounter Summary ---
Author Organization [facility] Address [address] [place] [address] Care Team Providers Care Adobe Layer Helper Name Role Phone Huseyin Zazueta MD Primary Care Provider [phone] Encounter Details Date Type Department Care Team (Late st Contact Info) Description 12/09/2010 Phlebotomy Only [facility] [address] [place] [address] Automatic Profile Shaper Operator, Outpatient DM w/o complication type I, uncontrolled [...] Priority Date/Time Associated Diagnosis Comments FRUCTOSAMINE Routine 12/09/2010 11:59 EDT DM w/o complication type I, uncontrolled HEMOGLOBIN A1C Routine 12/09/2010 11:59 EDT DM w/o complication type I, uncontrolled documented in this encounter Results * (ABNORMAL) FRUCTOSAMINE (12/09/2010 11:59 EDT) Fructosamine, S 467Reference range: 200 to 285 Unit: mcmol/L Performed by: [facility], [address], [place], ?? [place] [address], Credit Control Officer: Sonali Navarro, Ph.D.(H) [facility] Blood specimen (specimen) 12/09/2010 11:59 EDT 12/09/2010 12:00 EDT Jeb Daigle MD CHEMISTRY & BLOOD GAS ORDSocorro PATEL Final Result Performing Organization Address [facility] de Phone Number [facility] [address] [place] [address] * HEMOGLOBIN A1C (12/09/2010 11:59 EDT) Hemoglobin A1C 12.0 % [facility] Comment: Reference Range: <5.7% Normal 5.7-6.4% Increased risk for diabetes =>6.5% Diagnostic for diabetes (if confirmed) ?? The A1c goal for non adults in general is <7%. ?? The A1c goal for selected patients may be significantly lower than 7% if this can be achieved without significant hypoglycemia or other adverse effects of treatment. Est Avg Glucose 298 mg/dl [facility] Comment:eAG represents the A 1c result expressed as average glucose in mg/dl. Blood specimen (specimen) 12/09/2010 11:59 EDT 12/09/2010 12:00 EDT Jeb Daigle MD CHEMISTRY & BLOOD GAS TOO PATEL Final Result Performing Organization Address [facility] de Phone Number [facility] [address] [place] [address] documented in this encounter Visit Diagnoses Diagnosis Type I (juvenile type) diabetes mellitus without mention of complication, uncontrolled documented in this encounter Care Teams Adobe Layer Helper Relationship Specialty Start Date End Date Huseyin Zazueta MD [address] [place] [address] PCP - General 07/16/09 documented as of this encounter
--- OUTSIDE RECORDS SUMMARY | 2024-05-02 15:23 | XMS_ITS | Encounter Summary ---
Author Organization [facility] Address [address] [place] [address] Care Team Providers Care Can Handler Name Role Phone Huseyin Zazueta MD Primary Care Provider [phone] Reason for Visit * Reason Comments Other Encounter Details Date Type Department Care Team (Late st Contact Info) Description 07/07/2011 Refill [facility] Endocrinology - [facility] [address] [place] [address] Jeb Daigle MD [address] [facility] [address] [place] [address] Other Social History Tobacco Use [...] Refills Last Filled Start Date End Date simvastatin (ZOCOR) 40 mg tablet Take 1 tab by mouth once daily. 90 Tab 3 07/07/2011 05/09/2012 glucagon (GLUCAGON EMERGENCY) 1 mg injection Use as directed. 2 Each 6 07/07/2011 07/07/2012 documented in this encounter Miscellaneous Notes * Telephone Encounter - Solange Perez - 07/07/2011 1110 EST Call to Carolyn: Left message: I am refilling simvastatin and Glucagon, but she needs to get her labs drawn SOON (they are ordered in the system). Call back with questions. documented in this encounter Plan of Treatment Not on file documented as of this encounter Visit Diagnoses Not on filedocumented in this encounter Discontinued Medications Medication Sig Discontinue Reason Start Date End Da te glucagon (GLUCAGON EMERGENCY) 1 mg injection Inject 1 mg into the vein once for 1 dose. Reorder 07/07/2010 07/07/2011 simvastatin (ZOCOR) 40 mg tablet Take 40 mg by mouth daily. When she remembers Reorder 07/07/2011 documented as of this encounter Care Teams Can Handler Relationship Specialty Start Date End Date Huseyin Zazueta MD [address] [place] [address] PCP - General 07/16/09 documented as of this encounter
--- OUTSIDE RECORDS SUMMARY | 2024-05-02 15:23 | XMS_ITS | Encounter Summary ---
Author Organization [facility] Address [address] [place] [address] Care Team Providers Care Drill Operator Name Role Phone Huseyin Zazueta MD Primary Care Provider [phone] Reason for Visit * Reason Comments Follow-up diabetes Encounter Details Date Type Department Care Team (Latest Contact Info) Description 02/20/2010 9:30 EDT Office Visit [facility] Endocrinology - [facility] [address] [place] [address] Jeb Daigle MD [address] [facility] [address] [place] [address] DM w/o complication type I, uncontrolled (Primary Dx); Diabetes (CMS-HCC) (HCC-CMS); Pure hypercholesterolemia Social History Tobacco Use Types Packs/Day Years Used Date Smoking Tobacco: Never Assessed Comments Unknown Sex and Gender Information Value Date Recorded Sex Assigned at Not on file Legal Sex Female 18:29 EST Gender Identity Not on file Sexual Orientation Not on file documented as of this encounter Last Filed Vital Signs Vital Sign Reading Time Taken Comments Blood Pressure 102/72 02/20/2010 0931 EDT Pulse 80 02/20/2010 0931 EDT Temperature - - Respiratory Rate - - Oxygen Saturation - - Inhaled Oxygen Concentration - - Weight 49.4 kg (109 lb) 02/20/2010 0931 EDT Height 154.9 cm (5' 1) 02/20/2010 0931 EDT Body Mass Index 20.6 02/20/2010 0931 EDT documented in this encounter Patient Instructions * Patient Instructions* Jeb Daigle MD - 02/20/2010 10:31 EDT More insulin w meals Try 1:5 ratio This is because your before meals BS are very very high documented in this encounter Progress Notes * Jeb Daigle MD - 02/20/2010 1027 EDT SUBJECTIVE:?? Carolyn Shannon comes in today for evaluation of her diabetes mellitus.?? She has type 1, which is in poor control.?? She rather severe hyperglycemia after meals - morning are the best BS of the day.?? In addition to that, she has hypercholesterolemia. This patient's regimen is 10 units of Lantus BID, which has been up titrated because of the high blood sugars in the morning and split - ?? Peaking w levemir and her prandial dosing is done with a 1:10 carb ratio for NovoLog, which leads to about 4 or 5 units with each meal. And she had having skin reactions at the injection sites of the Levemir. So switched to lantus and seems to be doing better last 2 weeks ? Immediately after last visit continued to do poorly - per her history ( will check FRUCTOSAMINE to verify improvement in past 2 weeks ) Nohypoglycemic episodes, goes to sleep with a fairly good blood sugar,am highs seem to have disappeared w lantus IHer morning blood sugars are 150 , at lunchtime 200-250, before supper about 300, and variable before she goes to bed. When she remembers to check its 300 The patient was also started on simvastatin 20 mg when she was here last, because of persistent hypercholesterolemia and a strong family history of coronary artery disease and high cholesterol but she is not taking it !!! Symptoms- increased fatigue, skin infection/vaginitis and diarrhea. But denies blurry vision, nocturia, hypoglycemia, constipation, shortness of breath/chest pain and numbness/tingling of extremities The patient has experienced the following acute complications: none. Eating habits- not compliant with dietary recommendations. Patient's weight has been stable. Wt Readings from Last 3 Encounters: 02/20/2010 49.442 kg (109 lb) Patient is not active.. Patient has the following comorbidities: none. Glucose monitoring: QID. With meter: One touch see results above Hb A1C is 10% today PHYSICAL EXAMINATION: Vitals: BP 102/72 Pulse 80 Ht 1.549 m (5' 1) Wt 49.442 kg (109 lb) BMI: Body mass index is20.60 kg/(m^2). Funduscopic: no retinpathy. . . Feet: no ulcers, no abnormal calluses, no structural deformities and nl vibration. Post Tibial and Dorsalis Pedis: normal. LABS: FBS: No results found for this basename: HGBA1C Lab Results Component Value Date CHOL 246 07/17/2009 HDL 39 07/17/2009 LDLBASE 155 07/17/2009 TRIG 261* 07/17/2009 CHOLHDL Value: 6.3 Slightly lipemic 07/17/2009 Lab Results Component Value Date BUN 12 07/17/2009 CREATININE 0.51* 07/17/2009 NA 135* 07/17/2009 K 4.1 07/17/2009 Lab Results Component Value Date ALT 39 07/17/2009 Lab Results Component Value Date LABALBU 4.3 07/17/2009 UCREA 47.7 07/17/2009 MICRALBCRRAT 8.4 07/17/2009 ASSESSMENT: 250.03 DIABETES UNCOMPL FOREST-UNCONTRLLED hypercholesterolemia Patient does demonstrate knowledge of diabetes and expectations. Patient does understand medication regimen. Patient has the following barriers to adherence: desire/motivation to learn barriers identified.. Goals: Systolic blood pressure less than 130. And diastolic blood pressure less than 80. Hemoglobin A1C less than 7%. LDL cholesterol: 70 to 99. PLAN: No orders of the defined types were placed in this encounter. Medications: Recommend aspirin daily. Insulin: Insulin stabilization is not required and Insulin stabilization is required: ?? needs 1:5 ratio. Glucose monitoring QID. Referred to diabetic education program. Patient education already provided. Referred to division traffic superintendent no. Patient referred to eye caregiver services home for annual dilated eye exam. Lifestyle modifications: exercise >150 min/wk Return in four weeks. Jeb Daigle MD 02/20/2010 10:22 documented in this encounter Plan of Treatment Not on file documented as of this encounter Procedures Procedure Name Priority Date/Time Associated Diagnosis Comments URINE [id number] NE RATIO (ACR) Routine 02/20/2010 10:44 EDT DM w/o complication type I, uncontrolled FRUCTOSAMINE Routine 02/20/2010 10:43 EDT DM w/o complication type I, uncontrolled TSH Routine 02/20/2010 10:43 EDT DM w/o complication type I, uncontrolled T4 FREE Routine 02/20/2010 10:43 EDT DM w/o complication type I, uncontrolled HEPATIC FUNCTION PANEL (ALB,ALK PHOS,ALT,AST,DBIL,T OT CALVIN,TOT PROT) Routine 02/20/2010 10:43 EDT Pure hypercholesterolemia LIPID PROFILE (INCLUDES CHOLESTEROL, TRIGLYCERIDES, HDL, LDL) Routine 02/20/2010 10:43 EDT DM w/o complication type I, uncontrolled BASIC METABOLIC PANEL (BMP) Routine 02/20/2010 10:43 EDT DM w/o complication type I, uncontrolled POCT HEMOGLOBIN A1C Routine 02/20/2010 9 :49 EDT Diabetes (CMS-HCC) ([facility]) documented in this encounter Results * MICROALBUMIN (02/20/2010 10:44 EDT) Creatinine, Urn [place] 18.1 mg/dl [facility] Ur Albumin mg/dl <0.2 <1.9 mg/dl [facility] Ur Alb ug/mg Crea Unable to calculate ug/mg Crea result. Normal: ??<30 ug/mg Creat Microalbuminu morgan: ??30-300 ug/mg Creat Clinical albuminuria: ??>300 ug/mg Creat ug/mg Crea [facility] Urine specimen (specimen) 02/20/2010 10:44 EDT 02/20/2010 10:45 EDT us Jeb Daigle MD CHEMISTRY & BLOOD GAS ORDE RABLES Final Result Performing Organization Address [facility] Co de Phone Number [facility] [address] [place] [address] * TSH (02/20/2010 10:43 EDT) TSH 0.96 0.35 - 5.00 uIU/ml [facility] Blood specimen (specimen) 02/20/2010 10:43 EDT 02/20/2010 10:44 EDT us Jeb Daigle MD CHEMISTRY & BLOOD GAS ORDE RABLES Final Result Performing Organization Address [facility] Co de Phone Number [facility] [address] [place] [address] * T4 FREE (02/20/2010 10:43 EDT) Free T4 1.2 0.8 - 1.8 ng/dL [facility] Blood specimen (specimen) 02/20/2010 10:43 EDT 02/20/2010 10:44 EDT us Jeb Daigle MD CHEMISTRY & BLOOD GAS ORDE RABLES Final Result Performing Organization Address [facility] Co de Phone Number [facility] [address] [place] [address] * LIPID PROFILE (INCLUDES CHOLESTEROL, TRIGLYCERIDES, HDL, LDL) (02/20/2010 10:43 EDT) Cholesterol 212 mg/dl [facility] Comment:Desirable:<200 Borde rline High:200-239 High:>ja=902 Triglycerides 107 35 - 160 mg/dl [facility] HDL 40 mg/dl [facility] Comment:Low:<40 High(Desirab le):>or=60 LDL, Calculated 151 mg/dl [facility] Comment: Optimal:<100 Above optimal:100-129 Borderline High:130-159 High:160-189 Very High:>fi=346 Chol/HDL Ratio 5.3 [facility] Fasting? No [facility] Blood specimen (specimen) 02/20/2010 10:43 EDT 02/20/2010 10:44 EDT Jeb Daigle MD CHEMISTRY & [facility]OD [facility] Final Result Performing Organization Address [facility] de Phone Number [facility] [address] [place] [address] * LIVER FUNCTION TESTS (02/20/2010 10:43 EDT) Albumin 4.1 3.4 - 4.9 g/dl [facility] Total Protein 7.0 6.5 - 8.3 g/dl [facility] Total Alkaline Phosphatase 74 38 - 126 U/L [facility] ALT 17 9 - 52 U/L [facility] AST 15 15 - 46 U/L [facility] Unconjugated Bilirubin 0.5 0.1 - 1.1 mg/dl [facility] Conjugated Bilirubin 0.0 0.0 - 0.3 mg/dl [facility] Bilirubin, Total <0.5 0.2 - 1.3 mg/dl [facility] Blood specimen (specimen) 02/20/2010 10:43 EDT 02/20/2010 10:44 EDT Jeb Daigle MD CHEMISTRY & BLOOD GAS ORDE RABLES Final Result Performing Organization Address [facility] de Phone Number [facility] [address] [place] [address] * (ABNORMAL) BASIC METABOLIC PANEL (02/20/2010 10:43 EDT) Sodium 139 136 - 145 mEq/L [facility] Potassium 4.1 3.5 - 5.0 mEq/L [facility] Chloride 104 96 - 110 mEq/L [facility] CO2 27 24 - 32 mEq/L [facility] BUN 6(L) 10 - 26 mg/dl [facility] Creatinine 0.50(L) 0.7 - 1.5 mg/dl [facility] GFR, Calculated >60 ml/min/1.7 3m2 [facility] Calcium 9.3 8.5 - 10.5 mg/dl [facility] Calculated Calcium 9.6 8.5 - 10.5 mg/dl [facility] Glucose, Serum 207(H) 70 - 100 mg/dl [facility] Fasting? No [facility] Blood specimen (specimen) 02/20/2010 10:43 EDT 02/20/2010 10:44 EDT Jeb Daigle MD CHEMISTRY & BLOOD GAS ORDSocorro PATEL Final Result Performing Organization Address [facility] de Phone Number [facility] [address] [place] [address] * (ABNORMAL) FRUCTOSAMINE (02/20/2010 10:43 EDT) [facility] Fructosamine, S 449Reference range: 200 to 285 Unit: umol/L Performed by: [facility], [address], [place], ?? [place] [address], Bronze Plater: Sonali Navarro, Ph.D.(H) [facility] Blood specimen (specimen) 02/20/2010 10:43 EDT 02/20/2010 10:44 EDT Jeb Daigle MD CHEMISTRY & BLOOD GAS TOO PATEL Final Result Performing Organization Address [facility] de Phone Number [facility] [address] [place] [address] * (ABNORMAL) POCT HEMOGLOBIN A1C (02/20/2010 9:49 EDT) [facility] Hemoglobin A1c, POC 10.0(A) <=5.7 POINT OF CARE 02/20/2010 9:49 EDT Jeb Daigle MD POINT OF CARE TEST ORDERAB LES Edited POINT OF CARE documented in this encounter Visit Diagnoses Diagnosis Type I (juvenile type) diabetes mellitus without mention of complication, uncontrolled- Primary Diabetes ([facility]) Type II or unspecified type diabetes mellitus without mention of complication, not stated as uncontrolled Pure hypercholesterolemia documented in this encounter Discontinued Medications Medication Sig Discontinue Reason Start Date End Da te Insulin Detemir (LEVEMIR FLEXPEN) 100 unit/mL InPn Inject into the skin. As directed by flow sheet18 units at bedtime Side effects 02/20/2010 documented as of this encounter Historical Medications * This list may reflect changes made after this encounter. insulin glargine (LANTUS SOLOSTAR PEN) 100 unit/mL (3 mL) injection pen Inject into the skin at bedtime. 10 units in am, 10 units in pm 01/12/2011 added in this encounter Care Teams Drill Operator Relationship Specialty Start Date End Date Huseyin Zazueta MD [address] [place] [address] PCP - General 07/16/09 documented as of this encounter
--- OUTSIDE RECORDS SUMMARY | 2024-05-02 15:23 | XMS_ITS | Encounter Summary ---
Author Organization [facility] Address [address] [place] [address] Care Team Providers Care Sharepoint Admin Name Role Phone Huseyin Zazueta MD Primary Care Provider [phone] Reason for Visit * Reason Comments Diabetes Mellitus type 1 new patient Encounter Details Date Type Department Care Team (Latest Contact Info) Description 02/18/2011 14:00 EDT Office Visit [facility] Endocrinology - [address] [address] Carlin Manriquez MD [address] [place] [phone] Diabetes mellitus type I (CMS-HCC) (HCC-CMS) (Primary Dx); Pure hypercholesterolemia Social History Tobacco Use Types Packs/Day Years Used Date Smoking Tobacco: Every Day Cigarettes Smokeless Tobacco: Never Tobacco Cessation:Ready to Q uit: Yes Alcohol Use Standard Drinks/Week Comments Yes 0 [...] Sign Reading Time Taken Comments Blood Pressure 92/60 02/18/2011 1403 EDT Pulse 88 02/18/2011 1403 EDT Temperature - - Respiratory Rate - - Oxygen Saturation - - Inhaled Oxygen Concentration - - Weight 54.4 kg (120 lb) 02/18/2011 1403 EDT Height 154.9 cm (5' 1) 02/18/2011 1403 EDT Body Mass Index 22.67 02/18/2011 1403 EDT documented in this encounter Patient Instructions * Patient Instructions* Carlin Manriquez - 02/18/2011 14:51 EDT Super job and great progress! No change now: Lantus 20 in the morning and 10 at night Novolog 1:7 with meals Keep track of how often and when you have to adjust Lantus based on meal dose at dinner - we may want to try a looser meal ratio ultimately (1:8 or 1:10) but not now Be careful of hypoglycemia as a repeated event (occurs again within 24 hours frequently) Be sure you are on control with the simvastatin documented in this encounter Progress Notes * Carlin Manriquez - 02/18/20113 EDT [facility] Diabetes Follow-Up Note CHIEF COMPLAINT: Carolyn Portillo presents in clinic today with: 1. Diabetes mellitus type I (250.01B) 2. Pure hypercholesterolemia (272.0) Carolyn Portillo has had diabetes since 2009 and was diagnosed as Type 1 via JOHNNY + in 07/2009. HPI: Carolyn Portillo recently has a history of being in poor glycemic control. Last HbA1c was 12.0%; today it is 8.6% representing a major improvement. Patient has a history of being compliant most of thetime with medical therapy. Glucose monitoring: QID. Home Blood Glucoses Running: BGs are consistent with Hgb A1C and are all over the place. She has a few lowsx in the late afternoon due to not eating lunch until late, she says. She also had some cop winder lows a few weeks ago before she adjusted her insulin doses.. Carolyn is a delightful and complicated 30 yo female with Type 1 DM on Lantus 20 qam and 10 qpm as well as Novolog 1:7 with meals. She has fiddled with her insulin doses a LOT and says she is doing as well as she ever has now. She says she got here by ignoring what the doctors have told her! She has had fewer lows recently, but she was having significant hypoglycemia at night before she reduced theevening Lantus. Apparently Lantus really peaks with her. She sometimes reduces or omits her eveningLantus if her glucose is low at bedtime, but she can't really say how often. She can pick out thosenights when looking at her glucose meter readout, and she generally made a good choice when lookingat the morning numbers. She has been frustrated by the highs and lows and feels a great sense of fear and concern for her 3 children and having lows. She has a dread that they will find her in a coma. Her 11 year old, the oldest, knows how to use a glucagon pen, but the other 2 are too young. She has some mild hypoglycemia unawareness, especially if her glucose falls slowly. If it falls fast she always feels terrible. She rarely misses shots, but she sometimes has erratic meal times due to taking care of her children. She is on a statin for high cholesterol. She is sexually active and does not want more children and she uses depo shots for control. Patient's home regimen consists of has a current medication list which includes insulin glargine, insulin aspart, glucagon, and simvastatin. Carolyn Portillo reports the following: SYMPTOM YES or NO [...] stable. Wt Readings from Last 3 Encounters: 02/18/11 54.432 kg (120 lb) 12/09/10 53.751 kg (118 lb 8 oz) 09/28/10 53.978 kg (119 lb) Patient exercise level is: moderately active or [...] Use: Yes occasional PHYSICAL EXAMINATION: Vitals: BP 92/60 Pulse 88 Ht 154.9 cm (61) Wt 54.432 kg (120 lb) BMI 22.67 kg/m2 BMI: Body mass index is 22.67 kg/(m^2). Funduscopic: deferred Cardiac: Regular rhythm, nml rate Lungs: clear bilaterally Skin: normal Feet: good hygiene of the nails with no hypertrophy or onychomycosis. There are no osseous deformities or open lesions. Vibratory sense is intact. No pedal edema. Post Tibial and Dorsalis Pedis: normal LABS: FBS: Lab Results Component Value Date HGBA1C 12.0 12/09/2010 Lab Results Component Value Date CHOL 181 09/28/2010 HDL 49 09/28/2010 LDLBASE 113 09/28/2010 TRIG 96 09/28/2010 CHOLHDL 3.7 09/28/2010 Lab Results Component Value Date BUN 8* 09/28/2010 CREATININE 0.51* 09/28/2010 NA 138 09/28/2010 K 4.0 09/28/2010 Lab Results Component Value Date ALT 15 09/28/2010 Lab Results Component Value Date LABALBU 4.1 09/28/2010 UCREA 33.7 09/28/2010 MICRALBCRRAT 14.8 09/28/2010 ASSESSMENT: 1. Diabetes mellitus type I (250.01B) 2. Pure hypercholesterolemia (272.0) Carolyn is a delightful woman doing a great job with brittle diabetes. I have congratulated her on the progress she has made. I explained that although I think we can fine tune her insulins going forward, since she has just changed her Lantus to the current doses and times about 2 weeks ago, I am noteager to make a change right now. She is ok with that. She wore a CGM a couple of months ago, and so she and Lacie Nichole have really done the hard work getting her glucoses to where they are now. My one hope is that we can get her Lantus dose to a point that she does not ever have to skip it or reduce it, but I also appreciate her fear of nocturnal hypoglycemia. My gut feeling is that we may ne ed to reduce her Lantus and maybe even be less aggressive with her Novolog, but she has enough highreadings that it's touhg to tell where to cut back. We discussed treating hypoglycemia and the tendency to have repeat episodes in 24 hours. We also discussed the importance of not getting while on a statin. She is on good control (depo). My exit recs to her: Super job and great progress! No change now: Lantus 20 in the morning and 10 at night Novolog 1:7 with meals Keep track of how often and when you have to adjust Lantus based on meal dose at dinner - we may want to try a looser meal ratio ultimately (1:8 or 1:10) but not now Be careful of hypoglycemia as a repeated event (occurs again within 24 hours frequently) Be sure you are on control with the simvastatin Patient does demonstrate knowledge of diabetes and expectations. Patient does understand medication regimen. Barriers to adherence: No Barriers. Goals and plan to achieve these discussed Systolic blood pressure less than 130. And diastolic blood pressure less than 80. Hemoglobin A1C less than 7%. LDL cholesterol: 70 to 99. And Trig less than 180 - fasting PLAN: Medications: Recommend aspirin daily. Insulin: Insulin stabilization is required: see above. Non-insulin: diet. Recommended: Statin therapy on simvastatin - needs repeat cholesterol before long. Glucose monitoring QID. Referred to diabetic education program. Patient education already provided. Referred to associate pathologist yes sees Lacie Nichole regularly. Patient referred to eye wound care center consultant for annual dilated eye exam. Lifestyle modifications: recommend exercise and recommend compliance with a diabetic diet Return in three months. Carlin Manriquez MD 02/18/2011 22:22 * Aury Mccallum - 02/18/2011 1404 EDT Fingerstick blood sample obtained for POCT Hemoglobin A1C performed for this DOS at the order of Dr. Manriquez. documented in this encounter Plan of Treatment Not on file documented as of this encounter Procedures Procedure Name Priority Date/Time Associated Diagnosis Comments POCT HEMOGLOBIN A1C Routine 02/18/2011 1 4:22 EDT Diabetes mellitus type I ([facility]) ([facility]) documented in this encounter Results * (ABNORMAL) POCT HEMOGLOBIN A1C (02/18/2011 14:22 EDT) Hemoglobin A1c, POC 8.4(A) <=5.7 POINT OF CARE 02/18/2011 14:2 2 EDT us Carlin Manriquez MD POINT OF CARE TEST ORDERABLES Final Result POINT OF CARE documented in this encounter Visit Diagnoses Diagnosis Diabetes mellitus type I ([facility])- Primary Type I (juvenile type) diabetes mellitus without mention of complication, not stated as uncontrolled Pure hypercholesterolemia documented in this encounter Care Teams Sharepoint Admin Relationship Specialty Start Date End Date Huseyin Zazueta MD [address] [place] [address] PCP - General 07/16/09 documented as of this encounter
--- OUTSIDE RECORDS SUMMARY | 2024-05-02 15:23 | XMS_ITS | Encounter Summary ---
Author Organization [facility] Address [address] [place] [address] Care Team Providers Care Gold Stamper Name Role Phone Huseyin Zazueta MD Primary Care Provider [phone] Reason for Visit * Reason Onset Date Comments Appointment Related 07/30/2010 living well with diabetes appt. requesting appt and information. Encounter Details Date Type Department Care Team (Late st Contact Info) Description 07/30/2010 Telephone [facility] Endocrinology - [facility] [address] [place] [address] Jeb Daigle MD [address] [facility] [address] [place] [address] Appointment Related (living well with diabetes appt. requesting appt and information.) Social History Tobacco Use Types Packs/Day Years Used Date Smoking Tobacco: Never Assessed Comments Unknown Sex and Gender Information Value Date Recorded Sex Assigned at Not on file Legal Sex Female 18:29 EST Gender Identity Not on file Sexual Orientation Not on file documented as of this encounter Miscellaneous Notes * Telephone Encounter - Bhavani Flynn - 12/18/2010 8551 EDT close documented in this encounter Plan of Treatment Not on file documented as of this encounter Visit Diagnoses Not on filedocumented in this encounter Care Teams Gold Stamper Relationship Specialty Start Date End Date Huseyin Zazueta MD [address] [place] [address] PCP - General 07/16/09 documented as of this encounter
--- OUTSIDE RECORDS SUMMARY | 2024-05-02 15:23 | XMS_ITS | Encounter Summary ---
Author Organization [facility] Address [address] [place] [address] Care Team Providers Care Central Supply Aide Name Role Phone Huseyin Zazueta MD Primary Care Provider Reason for Visit * Reason Comments Blood Sugar Problem f/u Encounter Details Date Type Department Care Team (Latest Contact Info) Description 12/09/2010 11:15 EDT Office Visit [facility] Endocrinology - [address] [address] Jeb Daigle MD [address] [place] [address] [address] [place] [address] DM w/o complication type I, [...] Reading Time Taken Comments Blood Pressure 102/70 12/09/2010 1117 EDT Pulse 68 12/09/2010 1117 EDT Temperature - - Respiratory Rate - - Oxygen Saturation - - Inhaled Oxygen Concentration - - Weight 53.8 kg (118 lb 8 oz) 12/09/2010 1117 EDT Height 154.9 cm (5' 1) 12/09/2010 1117 EDT Body Mass Index 22.39 12/09/2010 1117 EDT documented in this encounter Progress Notes * Jeb Daigle MD - 12/09/2010 1128 EDT [facility] Diabetes Follow-Up Note CHIEF COMPLAINT: Carolyn Sosa presents in clinic today with: 1. DM w/o complication type I, uncontrolled (250.03) 2. Pure hypercholesterolemia (272.0) HPI:states she is trying hard to get into better control but by Hb A1c remains SEVERELY out on control Asked about emotional issues and if i could help get assistance - she denied Carolyn Sosa has had diabetes for late 2008 HPI: Carolyn Sosa recently has a history of being in poor glycemic control. Results for CAROLYN SOSA ( ) as of 12/09/2010 11:27 Ref. Range 02/20/2010 09:49 02/20/2010 10:43 05/04/2010 11:08 07/07/2010 09:14 09/28/2010 10:32 FRUCTOSAMINE No range found 449 umol/L Hemoglobin A1c, POC Latest Range: High: 5.7 10.0 (A) 11.2 (A) 11.0 (A) 10.9 (A) Patient has a history of being compliant ( who knows?) most of the time with medical therapy. Patient's home regimen consists of has a current medication list which includes simvastatin, insulin PLAN was Lantus 18 am and 10 qhs ( not missing) , and insulin aspart 1:7 carb ratio ( states she's doing this ) - problem is still snacking Supplemental still not doing this routinely Only before meals - add NOVOLOG 150 - 200 add 2 units 200-250 4units > 250 add 6 units BUT NOT IMPROVING !!! And now taking simvastatin most of time Carolyn Sosa reports the following:despite height of Hb A1c denies most symptoms SYMPTOM YES or NO Blurry vision No Increased fatigue yes Polydipsia/increased drinking yes Polyphagia No Polyuria No Poor wound healing No Weight loss No Skin infection/vaginitis - laly but now UTIs yes Nocturia No Hypoglycemia No Diarrhea No Constipation No Shortness of breath/chest pain No Early satiation No Numbness/tingling of extremities No Impotence No Myalgia No The patient has experienced the following acute complications: none. Eating habits: no specific dietary alterations. Patient's weight has been stable. Wt Readings from Last 3 Encounters: 12/09/10 53.751 kg (118 lb 8 oz) 09/28/10 53.978 kg (119 lb) 07/07/10 51.256 kg (113 lb) Patient exercise level is: moderately active. History Substance Use Topics ??? Smoking status: Current Everyday Smoker -- 1.0 packs/day ??? Smokeless tobacco: Never Used ??? Alcohol Use: No Glucose monitoring: QID. Home Blood Glucoses Running: she states 150 in am and is < 200 most of rest of time .But Hb A1c ic 11.3% PHYSICAL EXAMINATION: Vitals: BP 102/70 Pulse 68 Ht 154.9 cm (61) Wt 53.751 kg (118 lb 8 oz) BMI 22.39 kg/m2 BMI: Body mass index is 22.39 kg/(m^2). Funduscopic: no microaneurysms, exudates, hemorrhages or mary anne-vascularizations Skin: normal Feet: good hygiene of the nails with no hypertrophy or onychomycosis. There are no osseous deformities or open lesions. Vibratory sense is intact. No pedal edema. Post Tibial and Dorsalis Pedis: normal LABS: FBS: Lab Results Component Value Date HGBA1C 10.9* 09/28/2010 Lab Results Component Value Date CHOL 181 [...] I, uncontrolled (250.03) 2. Pure hypercholesterolemia (272.0) Patient does demonstrate knowledge of diabetes and expectations. Patient does understand medication regimen. Barriers to adherence: No Barriers. Goals: targets and how to achieve them Discussed Systolic blood pressure less than 130. And diastolic blood pressure less than 80. Hemoglobin A1C less than 7%. LDL cholesterol: 70 to 99. PLAN: recheck Hb A1c in labs as well as FRUCTOSAMINE - sine there is a large discrepancy between HGM and A1c Give new meter and will call CDE Q week Glucose monitoring QID. Referred to diabetic education program. Patient education already provided. Referred to egg trayer no. Patient referred to eye insurance healthcare consultant for annual dilated eye exam. Lifestyle modifications: compliance Return in three months. Jeb Daigle MD 12/09/2010 11:58 documented in this encounter Plan of Treatment Not on file documented as of this encounter Procedures Procedure Name Priority Date/Time Associated Diagnosis Comments POCT HEMOGLOBIN A1C Routine 12/09/2010 1 1:27 EDT DM w/o complication type I, uncontrolled documented in this encounter Results * (ABNORMAL) FRUCTOSAMINE (12/09/2010 11:59 EDT) Fructosamine, S 467Reference range: 200 to 285 Unit: mcmol/L Performed by: [facility] [place], [address], [place], ?? [place] [address], Flying Squad Worker: Sonali Navarro, Ph.D.(H) [facility] Blood specimen (specimen) 12/09/2010 11:59 EDT 12/09/2010 12:00 EDT us Jeb Daigle MD CHEMISTRY & BLOOD GAS TOO PATEL Final Result [facility] [address] [place] [address] * HEMOGLOBIN A1C (12/09/2010 11:59 EDT) Hemoglobin [...] RABLES Final Result [facility] [address] [place] [address] * (ABNORMAL) POCT HEMOGLOBIN A1C (12/09/2010 11:27 EDT) Hemoglobin A1c, POC 11.3(A) <=5.7 POINT OF CARE 12/09/2010 11:2 7 EDT Jeb Daigle MD POINT OF CARE TEST ORDERAB LES Final Result Performing Organization Address [facility] Co de Phone Number POINT OF CARE documented in this encounter Visit Diagnoses Diagnosis Type I (juvenile type) diabetes mellitus without mention of complication, uncontrolled- Primary Pure hypercholesterolemia documented in this encounter Orders General Supply Count Last Ordered Date First Or dered Date TEST STRIPS 1 12/09/2010 documented in this encounter Care Teams Central Supply Aide Relationship Specialty Start Date End Date Huseyin Zazueta MD [address] [place] [address] PCP - General 07/16/09 documented as of this encounter
--- OUTSIDE RECORDS SUMMARY | 2024-05-02 15:23 | XMS_ITS | Encounter Summary ---
Author Organization [facility] Address [address] [place] [address] Care Team Providers Care Deliverer Outside Name Role Phone Huseyin Zazueta MD Primary Care Provider [phone] Encounter Details Date Type Department Care Team (Late st Contact Info) Description 02/14/2012 Orders Only [facility] Endocrinology - [address] [address] Solange Perez, RN Social History Tobacco Use Types Packs/Day [...] to 35 units daily. (called [facility] to [facility]) 30 mL 3 02/14/2012 12/05/2012 documented in this encounter Plan of Treatment Not on file documented as of this encounter Visit Diagnoses Not on filedocumented in this encounter Discontinued Medications Medication Sig Discontinue Reason Start Date End Da te insulin aspart (NOVOLOG FLEXPEN) 100 unit/mL injection pen Inject into the skin 3 times daily with meals. 1 to 5 carb ratio Reorder 02/14/2012 documented as of this encounter Care Teams Deliverer Outside Relationship Specialty Start Date End Date Huseyin Zazueta MD [address] [place] [address] PCP - General 07/16/09 documented as of this encounter
--- OUTSIDE RECORDS SUMMARY | 2024-05-02 15:23 | XMS_ITS | Encounter Summary ---
Author Organization [facility] Address [address] [place] [address] Care Team Providers Care Education Instructor Name Role Phone Huseyin Zazueta MD Primary Care Provider [phone] Encounter Details Date Type Department Care Team (Late st Contact Info) Description 07/15/2011 Phlebotomy Only [facility] [address] [place] [address] Clinical Information Systems Director, Outpatient DM w/o complication type I, uncontrolled [...] Name Priority Date/Time Associated Diagnosis Comments URINE [id number] RATIO (ACR) Routine 07/15/2011 8:19 EST DM w/o complication type I, uncontrolled LIPID PROFILE (INCLUDES CHOLESTEROL, TRIGLYCERIDES, HDL, LDL) Routine 07/15/2011 8:19 EST DM w/o complication type I, uncontrolled COMPREHENSIVE METABOLIC PANEL (CMP) Routine 07/15/2011 8:19 EST DM w/o complication type I, uncontrolled documented in this encounter Results * ALBUMIN, URINE (07/15/2011 8:19 EST) Creatinine, Urn [place] 111.9 mg/dl [facility] Albumin mg/dl 0.7 <1.9 mg/dl [facility] Ur Alb ug/mg Crea 6.3 ug/mg Crea [facility] Comment: Normal: <30 ug/mg creat High: 30-300 ug/mg creat Very high and nephrotic: >300 ug/mg creat Urine specimen (specimen) 07/15/2011 8:19 EST 07/15/2011 10:28 EST Carlin Manriquez MD CHEMISTRY & BLOOD GAS ORDERABL ES Final Result Performing Organization Address [facility] de Phone Number [facility] [address] [place] [address] * LIPID PROFILE (INCLUDES CHOLESTEROL, TRIGLYCERIDES, HDL, LDL) (07/15/2011 8:19 EST) Cholesterol 228 mg/dl [facility] Comment: Desirable:<200 Borderline High:200-239 High:>tq=519 Triglycerides 68 mg/dl [facility] Comment: Normal:<150 Borderline High:150-199 High:200-499 Very High:>zr=300 HDL 43 mg/dl [facility] Comment: Low:<40 Normal:40-60 Desirable: >60 LDL, Calculated 171 mg/dl [facility] Comment: Optimal:<100 Near Optimal:100-129 Borderline High:130-159 High:160-189 Very High:>pl=691 Chol/HDL Ratio 5.3 [facility] Fasting? Yes [facility] Blood specimen (specimen) 07/15/2011 8:19 EST 07/15/2011 10:34 EST Carlin Manriquez MD CHEMISTRY & BLOOD GAS ORDERABL ES Final Result Performing Organization Address [facility] Co de Phone Number [facility] [address] [place] [address] * (ABNORMAL) COMPREHENSIVE METABOLIC PANEL (CMP) (07/15/2011 8:19 EST) Potassium 4.5 3.5 - 5.0 mEq/L [facility] Sodium 140 136 - 145 mEq/L [facility] Chloride 105 96 - 110 mEq/L [...] Total Protein 7.2 6.5 - 8.3 g/dl [facility] Creatinine 0.62 0.52 - 1.04 [...] (specimen) 07/15/2011 8:19 EST 07/15/2011 10:34 EST us Carlin Manriquez MD CHEMISTRY & BLOOD GAS ORDERABL ES Final Result [facility] [address] [place] [address] documented in this encounter Visit Diagnoses Diagnosis Type I (juvenile type) diabetes mellitus without mention of complication, uncontrolled documented in this encounter Care Teams Education Instructor Relationship Specialty Start Date End Date Huseyin Zazueta MD [address] [place] [address] PCP - General 07/16/09 documented as of this encounter
--- OUTSIDE RECORDS SUMMARY | 2024-05-02 15:23 | XMS_ITS | Encounter Summary ---
Author Organization [facility] Address [address] [place] [address] Care Team Providers Care Aircraft Maintenance Instructor Name Role Phone Huseyin Zazueta MD Primary Care Provider [phone] Encounter Details Date Type Department Care Team (Late st Contact Info) Description 02/22/2011 Orders Only [facility] Endocrinology - [address] [address] Aury Garcia RN DM w/o complication type I (Primary Dx) Social History Tobacco Use Types [...] as uncontrolled- Primary documented in this encounter Orders General Supply Count Last Ordered Date First Or dered Date TEST STRIPS 1 02/22/2011 documented in this encounter Care Teams Aircraft Maintenance Instructor Relationship Specialty Start Date End Date Huseyin Zazueta MD [address] [place] [address] PCP - General 07/16/09 documented as of this encounter
--- OUTSIDE RECORDS SUMMARY | 2024-05-02 15:23 | XMS_ITS | Encounter Summary ---
Author Organization [facility] Address [address] [place] [address] Care Team Providers Care Research Contracts Supervisor Name Role Phone Huseyin Zazueta MD Primary Care Provider [phone] Reason for Visit * Reason Onset Date Comments Medications Refill 02/22/2011 Encounter Details Date Type Department Care Team (Late st Contact Info) Description 02/22/2011 Refill [facility] Endocrinology - [address] [id number] Carlin Manriquez MD [address] [place] [address], [address] [address] Medications Refill Social History Tobacco [...] * Telephone Encounter - Johnathon Garcia - 02/22/2011 1639 EDT Test strips freedom lite reordered. JOHNATHON GARCIA RN * Telephone Encounter - Isabel Ontiveros - 02/22/2011 1346 EDT Patient needs a refill of free style test strips. Patient tests 5 to 7 times day. Patient needs 3 boxes. documented in this encounter Plan of Treatment Not on file documented as of this encounter Visit Diagnoses Not on filedocumented in this encounter Care Teams Research Contracts Supervisor Relationship Specialty Start Date End Date Huseyin Zazueta MD [address] [place] [address] PCP - General 07/16/09 documented as of this encounter
--- OUTSIDE RECORDS SUMMARY | 2024-05-02 15:23 | XMS_ITS | Encounter Summary ---
Author Organization [facility] Address [address] [place] [address] Care Team Providers Care Steel Layout Worker Name Role Phone Huseyin Zazueta MD Primary Care Provider [phone] Reason for Visit * Reason Comments Blood Sugar Problem fur Encounter Details Date Type Department Care Team (Latest Contact Info) Description 08/26/2011 15:40 EDT Office Visit [facility] Endocrinology - [address] [address] Carlin Manriquez MD [address] [place] [address], [address] [address] Pure hypercholesterolemia; DM w/o complication type I, uncontrolled Discharge Disposition: Auto Discharge Social History Tobacco [...] Sign Reading Time Taken Comments Blood Pressure 122/62 08/26/2011 1543 EDT Pulse 68 08/26/2011 1543 EDT Temperature - - Respiratory Rate - - Oxygen Saturation - - Inhaled Oxygen Concentration - - Weight 58.5 kg (129 lb) 08/26/2011 1543 EDT Height 154.9 cm (5' 1) 08/26/2011 1543 EDT Body Mass Index 24.37 08/26/2011 1543 EDT documented in this encounter Patient Instructions * Patient Instructions* Carlin Manriquez - 08/26/2011 15:59 EDT Super job and great progress! Your A1c is down considerably since your last visit: you went from 10.3% to 9.8%. No change in Lantus now: Lantus 20 in the morning and 10 at night Novolog 1:7 with meals on weekends, but go up to 1:6 during week days Sliding scale before a meal to add to the meal dose: - 201-250: 1 unit - 251-300: 2 units - 301-350: 3 units - > 350: 5 units Try to do careful math on your carb intake each meal so you match insulin to carbs accurately Be careful of hypoglycemia as a repeated event (occurs again within 24 hours frequently) Be sure you are on control with the simvastatin documented in this encounter Discharge Disposition Disposition Code Departure Means Destination Auto Discharge documented in this encounter Progress Notes * Carlin Manriquez - 08/26/2011 1709 EDT [facility] Diabetes Follow-Up Note CHIEF COMPLAINT: Carolyn Sosa presents in clinic today with: 1. Pure hypercholesterolemia 2. DM w/o complication type I, uncontrolled Carolyn Sosa has had diabetes since 2009 and was diagnosed as Type 1 via JOHNNY + in 07/2009. HPI: Carolyn Sosa recently has a history of being in poor glycemic control. A1c today is 9.8%. Patient has a history of being compliant some of the time with medical therapy. Results for CAROLYN SOSA ( ) as of 08/26/2011 17:10 Ref. Range 12/09/2010 11:27 12/09/2010 11:59 02/18/2011 14:22 05/20/2011 14:04 Hemoglobin A1C No range found 12.0 Hemoglobin A1c, POC Latest Range: High: 5.7 11.3 (A) 8.4 (A) 10.3 (A) Glucose monitoring: QID. Home Blood Glucoses Running: BGs are consistent with Hgb A1C and are all over the place. She has a few lowsx in the late afternoon due to not eating lunch until late, she says. She also had some brands editor lows a few weeks ago before she adjusted her insulin doses.. Carolyn is a delightful and complicated 30 yo female with Type 1 DM on Lantus 20 qam and 10 qpm as well as Novolog 1:7 with meals. She has fiddled with her insulin doses a LOT and says she was doing aswell as she ever had at her last visit. She continue to be very stressed out in life, but she has speciifcally been snacking less. She has had fewer lows recently, but she is having occasional impressive hyperglycemia. Apparently Lantus really peaks with her. She rarely misses shots, but she sometimes has erratic meal times and or snacks a lot due to taking care of her children. She had been on astatin for high cholesterol, but she stopped it due to fear of defects because although she is sexually active and does not want more children and uses depo shots for control, her previous 3 pregnancies were not planned, so it makes her nervous. We discussed at her last clinic visit that she should NOT get while on a statin. Overall she is surprised that her glucoses are not better. She is not exercising and just generally is not taking very good care of herself. She continues to worry about weight gain but assures me that she does not use manipulation of her diabetes to achieve lower weights. Patient's home regimen consists of has a current medication list which includes the following prescription(s): glucagon, simvastatin, insulin glargine, and insulin aspart. Carolyn Sosa reports the following: SYMPTOM YES [...] adherent to diabetic diet. Patient's weight has increased 9 pounds over last 3 months. Wt Readings from Last 3 Encounters: 08/26/11 58.514 kg (129 lb) 05/20/11 54.432 kg (120 lb) 02/18/11 54.432 kg (120 lb) Patient exercise level is: moderately active [...] Use: Yes occasional PHYSICAL EXAMINATION: Vitals: BP 122/62 Pulse 68 Ht 154.9 cm (61) Wt 58.514 kg (129 lb) BMI 24.37 kg/m2 BMI: Body mass index is 24.37 kg/(m^2). Funduscopic: deferred Cardiac: Regular rhythm, nml [...] FBS: Lab Results Component Value Date HGBA1C 10.3* 05/20/2011 Lab Results Component Value Date CHOL 228 07/15/2011 HDL 43 07/15/2011 LDLBASE 171 07/15/2011 TRIG 68 07/15/2011 CHOLHDL 5.3 07/15/2011 Lab Results Component Value Date BUN 11 07/15/2011 CREATININE 0.62 07/15/2011 NA 140 07/15/2011 K 4.5 07/15/2011 Lab Results Component Value Date ALT 22 07/15/2011 Lab Results Component Value Date LABALBU 4.1 07/15/2011 UCREA 111.9 07/15/2011 MICRALBCRRAT 6.3 07/15/2011 ASSESSMENT: 1. Pure hypercholesterolemia 2. DM w/o complication type I, uncontrolled Carolyn is a delightful woman with a difficult social situation who was doing a great job with brittle diabetes but whose care fluctuates a great deal. She seems agitated today and I know she stays very busy with her children. We will try to tighten up her insulin to carb ratio as much as possible this visit and consider adjusting her Lantus doses at the next visit. She is a little bit lax and estimates how much to give rather than using a formula of any sort. We also discussed the importance of not getting while on a statin. Her most recent LDL chol in 07/2011 was over 170, so she restarted it after having stopped it several months earlier. She siva good control (depo). My exit recs to her: Super job and great progress! Your A1c is down considerably since your last visit: you went from 10.3% to 9.8%. No change in Lantus now: Lantus 20 in the morning and 10 at night Novolog 1:7 with meals on weekends, but go up to 1:6 during week days Sliding scale before a meal to add to the meal dose: - 201-250: 1 unit - 251-300: 2 units - 301-350: 3 units - > 350: 5 units Try to do careful math on your carb intake each meal so you match insulin to carbs accurately Be careful of hypoglycemia as a repeated [...] program. Patient education already provided. Referred to crab steamer yes sees Lacie Nichole regularly. Patient referred to eye career advisor for annual dilated eye exam. Lifestyle modifications: recommend exercise and recommend compliance with a diabetic diet Return in three months. Carlin Manriquez MD 08/26/2011 17:09 * WheelerRadha - 08/26/2011 7777 EDT Fingerstick blood sample obtained for POCT Hemoglobin A1C performed for this DOS at the order of Dr. Carlin Manriquez. documented in this encounter Plan of Treatment Not on file documented as of this encounter Procedures Procedure Name Priority Date/Time Associated Diagnosis Comments POCT HEMOGLOBIN A1C Routine 08/27/2011 1 5:45 EDT DM w/o complication type I, uncontrolled documented in this encounter Results * (ABNORMAL) POCT HEMOGLOBIN A1C (08/27/2011 15:45 EDT) Hemoglobin A1c, POC 9.8(A) <=5.7 POINT OF CARE 08/27/2011 15:4 5 EDT us Carlin Manriquez MD POINT OF CARE TEST ORDERABLES Final Result POINT OF CARE documented in this encounter Visit Diagnoses Diagnosis Pure hypercholesterolemia Type I (juvenile type) diabetes mellitus without mention of complication, uncontrolled documented in this encounter Care Teams Steel Layout Worker Relationship Specialty Start Date End Date Huseyin Zazueta MD [address] [place] [address] PCP - General 07/16/09 documented as of this encounter
--- OUTSIDE RECORDS SUMMARY | 2024-05-02 15:23 | XMS_ITS | Encounter Summary ---
Author Organization [facility] Address [address] [place] [address] Care Team Providers Care Public Transit Specialist Name Role Phone Huseyin Zazueta MD Primary Care Provider [phone] Reason for Visit * Reason Onset Date Comments Medications Refill 01/12/2011 Encounter Details Date Type Department Care Team (Late st Contact Info) Description 01/12/2011 Refill [facility] Endocrinology - [address] [address] Lacie Nichole RN CDE Medications Refill Social [...] units in pm 5 Syringe 11 01/12/2011 01/14/2012 documented in this encounter Plan of Treatment Not on file documented as of this encounter Visit Diagnoses Not on filedocumented in this encounter Discontinued Medications Medication Sig Discontinue Reason Start Date End Da te insulin glargine (LANTUS SOLOSTAR PEN) 100 unit/mL (3 mL) injection pen Inject into the skin at bedtime. 10 units in am, 10 units in pm Reorder 01/12/2011 documented as of this encounter Care Teams Public Transit Specialist Relationship Specialty Start Date End Date Huseyin Zazueta MD [address] [place] [address] PCP - General 07/16/09 documented as of this encounter
--- OUTSIDE RECORDS SUMMARY | 2024-05-02 15:23 | XMS_ITS | Encounter Summary ---
Author Organization [facility] Address [address] [place] [address] Care Team Providers Care Swimming Pool Maintenance Name Role Phone Huseyin Zazueta MD Primary Care Provider [phone] Reason for Visit * Reason Comments Blood Sugar Problem f/u Encounter Details Date Type Department Care Team (Latest Contact Info) Description 07/07/2010 9:00 EST Office Visit [facility] Endocrinology - [address] [address] Jeb Daigle MD [address] [place] [address] [address] [place] [address] DM w/o complication type I, uncontrolled (Primary Dx) Social History Tobacco Use Types Packs/Day Years Used Date Smoking Tobacco: Never Assessed Comments Unknown Sex and Gender Information Value Date Recorded Sex Assigned at Not on file Legal Sex Female 18:29 EST Gender Identity Not on file Sexual Orientation Not on file documented as of this encounter Last Filed Vital Signs Vital Sign Reading Time Taken Comments Blood Pressure 96/64 07/07/2010913 EST Pulse 76 07/07/2010913 EST Temperature - - Respiratory Rate - - Oxygen Saturation - - Inhaled Oxygen Concentration - - Weight 51.3 kg (113 lb) 07/07/2010913 EST Height 154.9 cm (5' 1) 07/07/2010913 EST Body Mass Index 21.35 07/07/2010913 EST documented in this encounter Patient Instructions * Patient Instructions* Jeb Daigle MD - 07/07/2010 9:33 EST Lantus 18 am and 10 qhs , and insulin aspart 1:7 carb ratio - only problem is snacking Only before meals - add NOVOLOG 150 - 200 add 2 units 200-250 4units > 250 add 6 units documented in this encounter Ordered Prescriptions Prescription Sig Dispense Quantity Refills Last Filled Start Date End Date glucagon (GLUCAGON EMERGENCY) 1 mg injection Inject 1 mg into the vein once for 1 dose. 2 Each 6 07/07/2010 07/07/2011 documented in this encounter Progress Notes * Jeb Daigle MD - 07/07/2010920 EST [facility] Diabetes Follow-Up Note CHIEF COMPLAINT: Carolyn Portillo presents in clinic today with: 1. DM w/o complication type I, uncontrolled (250.03) Carolyn Portillo has had diabetes for late 2008 HPI: Carolyn Portillo recently has a history of being in poor glycemic control. Patient has a history of being compliant most of the time with medical therapy. Patient's home regimen consists of has a current medication list which includes simvastatin, insulin glargine 14 am and 10 qhs , and insulin aspart 1:7 carb ratio - only problem is snacking Only before meals - add NOVOLOG 150 - 200 add 2 units 200-250 4units She changes from 12 BID glargine to 14-10 as she is fearful of lows during nite > 250 add 6 units Carolyn Portillo reports the following: SYMPTOM YES or NO Blurry vision No Increased fatigue yes Polydipsia/increased drinking yes Polyphagia No Polyuria No Poor wound healing No Weight loss No vaginitis YES !! Nocturia No Hypoglycemia yes Diarrhea No Constipation No Shortness of breath/chest pain No Early satiation No Numbness/tingling of extremities No The patient has experienced the following acute complications: hypoglycemia - mild, very mild X2 . Eating habits: adherent to diabetic diet. Patient's weight has been stable. Wt Readings from Last 3 Encounters: 07/07/2010 51.256 kg (113 lb) 05/20/2010 51.256 kg (113 lb) 05/04/2010 51.256 kg (113 lb) Patient is moderately active. Glucose monitoring: QID. Home Blood Glucoses Running: BGs are high in the morning (average 175), BGs are high around lunch (average 200), BGs are high around dinner (average 100-200) and BGs are high at HS (average hi > 200).seems to be doing better day by day PHYSICAL EXAMINATION: Vitals: BP 96/64 Pulse 76 Ht 154.9 cm (61) Wt 51.256 kg (113 lb) BMI: Body mass index is 21.35 kg/(m^2). Funduscopic: no microaneurysms, exudates, hemorrhages or mary anne-vascularizations . Skin: normal. Feet: good hygiene of the nails with no hypertrophy or onychomycosis. There are no osseous deformities or open lesions. Vibratory sense is intact. . Post Tibial and Dorsalis Pedis: normal. LABS: FBS: Lab Results Component Value Date [...] DM w/o complication type I, uncontrolled (250.03) Improving - but still far from reasonable control - Patient does demonstrate knowledge of diabetes and expectations. Patient does understand medication regimen. Barriers to adherence: No Barriers. Goals: Systolic blood pressure less than 130. And diastolic blood pressure less than 80. Hemoglobin A1C less than 7%. LDL cholesterol: 70 to 99. PLAN: Lantus 18 am and 10 qhs , and insulin aspart 1:7 carb ratio - only problem is snacking Only before meals - add NOVOLOG 150 - 200 add 2 units 200-250 4units > 250 add 6 units Return in three months. Jeb Daigle MD 07/07/2010 9:31 documented in this encounter Plan of Treatment Not on file documented as of this encounter Procedures Procedure Name Priority Date/Time Associated Diagnosis Comments POCT HEMOGLOBIN A1C Routine 07/07/2010 9 :14 EST DM w/o complication type I, uncontrolled documented in this encounter Results * (ABNORMAL) POCT HEMOGLOBIN A1C (07/07/2010 9:14 EST) Hemoglobin A1c, POC 11.0(A) <=5.7 POINT OF CARE 07/07/2010 9:14 EST us Jeb Daigle MD POINT OF CARE TEST ORDERAB LES Final Result POINT OF CARE documented in this encounter Visit Diagnoses Diagnosis Type I (juvenile type) diabetes mellitus without mention of complication, uncontrolled- Primary documented in this encounter Discontinued Medications Medication Sig Discontinue Reason Start Date End Da te amoxicillin-clavulanate (AUGMENTIN) 875-125 mg per tablet Take 1 Tab by mouth every 12 hours. Therapy completed 07/07/2010 documented as of this encounter Care Teams Swimming Pool Maintenance Relationship Specialty Start Date End Date Huseyin Zazueta MD [address] [place] [id number] PCP - General 07/16/09 documented as of this encounter
--- OUTSIDE RECORDS SUMMARY | 2024-05-02 15:24 | XMS_ITS | Encounter Summary ---
Author Organization [facility] Address [address] [place] [address] Care Team Providers Care Roller Mill Tender Name Role Phone Huseyin Zazueta MD Primary Care Provider [phone] Encounter Details Date Type Department Care Team (Late st Contact Info) Description 07/17/2009 Orders Only [facility] Endocrinology - [facility] [address] [place] [address] Jeb Daigle MD [address] [facility] [address] [place] [address] Social History Tobacco Use Types [...] Name Priority Date/Time Associated Diagnosis Comments URINE [id number] RATIO (ACR) Routine 07/17/2009 13:14 EST GLUTAMIC ACID DECARBOXYLASE ANTIBODY Routine 07/17/2009 13:13 EST TSH Routine 07/17/2009 13:13 EST T4 FREE Routine 07/17/2009 13:13 EST LIPID PROFILE (INCLUDES CHOLESTEROL, TRIGLYCERIDES, HDL, LDL) Routine 07/17/2009 13:13 EST COMPREHENSIVE METABOLIC PANEL (CMP) Routine 07/17/2009 13:13 EST ZZHEMOGLOBIN A1C Routine 07/17/2009 9:09 EST documented in this encounter Results * MICROALBUMIN (07/17/2009 13:14 EST) Pathologist [facility] Creatinine, Urn [place] 47.7 mg/dl [facility] Ur Albumin mg/dl 0.4 <1.9 mg/dl [facility] Ur Alb ug/mg Crea 8.4 ug/mg Crea [facility] Comment: Normal: ??<30 ug/mg Creat Microalbuminuria: ??30-300 ug/mg Creat Clinical albuminuria: ??>300 ug/mg Creat Urine specimen (specimen) 07/17/2009 13:14 EST 07/17/2009 13:15 EST Jeb Daigle MD CHEMISTRY & BLOOD GAS TOO [facility] Final Result [facility] [address] [place] [address] * (ABNORMAL) GLUTAMIC ACID DECARBOXYLASE ANTIBODY (07/17/2009 13:13 EST) Pathologist [facility] Glutamic Acid Decarboxylase Antibody Assay 3.00Reference range: <= 0.02 Unit: nmol/L * ? Suggests predisposition to type-1 diabetes and related ? autoimmune thyrogastric disorders. ? * ? Performed or Referred by: [facility] Dpt of Lab Med and Path, [address] [facility], [place] [address], Lab Dir: Ramon Ordoñez III, ? MD ?(H) [facility] Blood specimen (specimen) 07/17/2009 13:13 EST 07/17/2009 13:14 EST us Jeb Daigle MD IMMUNOLOGY AND SEROLOGY OR DERABLES Final Result Performing Organization Address [facility] de Phone Number [facility] [address] [place] [address] * TSH (07/17/2009 13:13 EST) [facility] TSH 0.57 0.35 - 5.00 uIU/ml [facility] Blood specimen (specimen) 07/17/2009 13:13 EST 07/17/2009 13:14 EST us Jeb Daigle MD CHEMISTRY & BLOOD GAS ORDE RABLES Final Result Performing Organization Address [facility] de Phone Number [facility] [address] [place] [address] * T4 FREE (07/17/2009 13:13 EST) Free T4 1.1 0.8 - 1.8 ng/dL [facility] Blood specimen (specimen) 07/17/2009 13:13 EST 07/17/2009 13:14 EST Jeb Daigle MD CHEMISTRY & BLOOD [facility] Final Result Performing Organization Address [facility] de Phone Number [facility] [address] [place] [address] * (ABNORMAL) LIPID PROFILE (INCLUDES CHOLESTEROL, TRIGLYCERIDES, HDL, LDL) (07/17/2009 13:13 EST) [facility] Cholesterol 246 mg/dl [facility] Comment: Desirable:<200 Borderline High:200-239 High:>np=337 Slightly lipemic Triglycerides 261(H) 35 - 160 mg/dl [facility] Comment:Slightly lipemic HDL 39 mg/dl [facility] Comment: Low:<40 High(Desirable):>or=60 Slightly lipemic LDL, Calculated 155 mg/dl [facility] Comment: Optimal:<100 Above optimal:100-129 Borderline High:130-159 High:160-189 Very High:>bq=024 Slightly lipemic Chol/HDL Ratio 6.3 Slightly lipemic [facility] Fasting? No [facility] Blood specimen (specimen) 07/17/2009 13:13 EST 07/17/2009 13:14 EST us Jeb Daigle MD CHEMISTRY & BLOOD [facility]AS [facility] Final Result Performing Organization Address [facility] de Phone Number [facility] [address] [place] [address] * (ABNORMAL) COMPREHENSIVE METABOLIC PANEL (07/17/2009 13:13 EST) [facility] Potassium 4.1 3.5 - 5.0 mEq/L [facility] Comment:Slightly lipemic Sodium 135(L) 136 - 145 mEq/L [facility] Comment:Slightly lipemic Chloride 101 96 - 110 mEq/L [facility] Comment:Slightly lipemic CO2 27 24 - 32 mEq/L [facility] Comment:Slightly lipemic Alkaline Phosphatase 103 38 - 126 U/L [facility] Comment:Slightly lipemic Bilirubin, Total <0.5 0.2 - 1.3 mg/dl [facility] Comment:Slightly lipemic AST 25 15 - 46 U/L [facility] Comment:Slightly lipemic ALT 39 9 - 52 U/L [facility] Comment:Slightly lipemic Albumin 4.3 3.4 - 4.9 g/dl [facility] Comment:Slightly lipemic Total Protein 7.1 6.5 - 8.3 g/dl [facility] Comment:Slightly lipemic Creatinine 0.51(L) 0.7 - 1.5 mg/dl [facility] Comment:Slightly lipemic GFR, Calculated >60 ml/min/1.7 3m2 [facility] Comment:Slightly lipemic BUN 12 10 - 26 mg/dl [facility] Comment:Slightly lipemic Calcium 9.3 8.5 - 10.5 mg/dl [facility] Comment:Slightly lipemic Calculated Calcium 9.4 8.5 - 10.5 mg/dl [facility] Comment:Slightly lipemic Glucose, Serum 362(H) 70 - 100 mg/dl [facility] Comment:Slightly lipemic Fasting? No [facility] Blood specimen (specimen) 07/17/2009 13:13 EST 07/17/2009 13:14 EST Jeb Daigle MD CHEMISTRY & BLOOD GAS TOO [facility] Final Result [facility] [address] [place] [address] * HEMOGLOBIN A1C (07/17/2009 9:09 EST) Pathologist [facility] POCT Hgb A1C 10.8 % [facility] Comment: Reference Range: <6% Normal Range ADA guidelines: The A1c goal for non adults in general is <7% The A1c goal for selected individual patients is as close to normal (<6%) as possible without significant hypoglycemia. Test Performed at [facility] 07/17/2009 9:09 EST 07/21/2009 12:39 EST us Jeb Daigle MD CHEMISTRY & BLOOD GAS TOO PATEL Final Result [facility] [address] [place] [address] documented in this encounter Visit Diagnoses Not on filedocumented in this encounter Care Teams Roller Mill Tender Relationship Specialty Start Date End Date Huseyin Zazueta MD [address] [place] [address] PCP - General 07/16/09 documented as of this encounter
--- OUTSIDE RECORDS SUMMARY | 2024-05-02 15:24 | XMS_ITS | Encounter Summary ---
Author Organization [facility] Address [address] [place] [address] Care Team Providers Care Desk Manager Name Role Phone Peter Hernández MD Primary Care Provider [phone] Encounter Details Date Type Department Care Team (Late st Contact Info) Description 11/24/[address] [facility] conversion [address] [place] [address] Peter Hernández MD [address] [place], [place] [address] Social History Tobacco Use Types Packs/Day Years [...] Priority Date/Time Associated Diagnosis Comments CYTOPATHOLOGY Routine 11/24/2001 0:00 EDT documented in this encounter Results * CYTOPATHOLOGY (11/24/2001 0:00 EDT) Pathology Report: CYTOPATHOLOGY REPORT Reports generated via electronic interface contain original data; however they are lacking the format of the original report. Caution should be taken when reading/interpreti ng unformatted reports. Name: ? CAROLYN PARNELL ? Accession #: ? [id number] : ? 1980 (Age: 20) ??F ?Collect Date: ? 11/24/2001 Location: ? [facility] ? Receive Date: ? 11/28/2001 Provider: ?PETER HERNÁNDEZ MD Copy to: ? Specimen/Source: ?ThinPrep Pap Test, Cervix Last Menstrual Period: ? 10/07/01 Menstrual/Pregnanc y Status: ? SPECIMEN ADEQUACY ? Satisfactory for Evaluation - transformation zone component present GENERAL CATEGORIZATION ? Negative for Intraepithelial Lesion or Malignancy ? Document reviewed and electronically signed by: ? JOAQUIN Garcia(ASCP) ? Report Date: ??11/30/2001 09:49 End of Report [facility] 11/24/2001 11/28/2001 us Peter Hernández MD PATHOLOGY ORDERABLES Final Resu lt [facility] [address] [place] [address] documented in this encounter Visit Diagnoses Not on filedocumented in this encounter Care Teams Desk Manager Relationship Specialty Start Date End Date Peter Hernández MD [address] [place] [address] PCP - General 07/16/09 documented as of this encounter
--- OUTSIDE RECORDS SUMMARY | 2024-05-02 15:24 | XMS_ITS | Encounter Summary ---
Author Organization [facility] Address [address] [place] [address] Care Team Providers Care Ditch Tender Name Role Phone Peter Hernández MD Primary Care Provider [phone] Encounter Details Date Type Department Care Team (Late st Contact Info) Description 08/21/2002 Results Only [facility] [address] [place] [address] Peter Hernández MD [address] [place], [place] [address] Social History Tobacco Use Types Packs/Day Years [...] Priority Date/Time Associated Diagnosis Comments CYTOPATHOLOGY Routine 08/21/2002 0:00 EST documented in this encounter Results * CYTOPATHOLOGY (08/21/2002 0:00 EST) Pathology Report: CYTOPATHOLOGY REPORT Reports generated via electronic interface contain original data; however they are lacking the format of the original report. Caution should be taken when reading/interpreti ng unformatted reports. Name: ? CAROLYN SOSA ? Accession #: ? [id number] : ? 1980 (Age: 21) ??F ?Collect Date: ? 08/21/2002 Location: ? [facility] ? Receive Date: ? 08/23/2002 Provider: ?PETER HERNÁNDEZ MD Copy to: ? Specimen/Source: ?ThinPrep Pap Test, Source Not Provided Last Menstrual Period: ? Menstrual/Pregnanc y Status: ? Post ? SPECIMEN ADEQUACY ? Satisfactory for Evaluation - transformation zone component present GENERAL CATEGORIZATION ? Negative for Intraepithelial Lesion or Malignancy ? Document reviewed and electronically signed by: ? Robert Bowser, JOAQUIN(ASCP) ? Report Date: ??08/24/2002 14:27 End of Report [facility] 08/21/2002 08/23/2002 us Peter Hernández MD PATHOLOGY ORDERABLES Final Resu lt [facility] [address] [place] [address] documented in this encounter Visit Diagnoses Not on filedocumented in this encounter Care Teams Ditch Tender Relationship Specialty Start Date End Date Peter Hernández MD [address] [place] [address] PCP - General 07/16/09 documented as of this encounter
--- OUTSIDE RECORDS SUMMARY | 2024-05-02 15:24 | XMS_ITS | Encounter Summary ---
Author Organization [facility] Address [address] [place] [address] Care Team Providers Care Director Of Outpatient Services Name Role Phone Peter Hernández MD Primary Care Provider [phone] Encounter Details Date Type Department Care Team (Late st Contact Info) Description 07/28/[address] [facility] [address] [place] [address] Peter Hernández MD [address] [place], [place] [address] Social History Tobacco Use Types Packs/Day Years [...] Priority Date/Time Associated Diagnosis Comments CYTOPATHOLOGY Routine 07/28/2004 0:00 EST documented in this encounter Results * CYTOPATHOLOGY (07/28/2004 0:00 EST) Pathology Report: CYTOPATHOLOGY REPORT Reports generated via electronic interface contain original data; however they are lacking the format of the original report. Caution should be taken when reading/interpreti ng unformatted reports. Name: ? CAROLYN PARNELL ? Accession #: ? [id number] : ? 1980 (Age: 23) ??F ?Collect Date: ? 07/28/2004 Location: ? [facility] ? Receive Date: ? 07/30/2004 Provider: ?PETER HERNÁNDEZ MD Copy to: ? Specimen/Source: ?ThinPrep Pap Test, Cervix Last Menstrual Period: ? Menstrual/Pregnanc y Status: ? SPECIMEN ADEQUACY ? Satisfactory for Evaluation - transformation zone component present GENERAL CATEGORIZATION ? Negative for Intraepithelial Lesion or Malignancy ? Document reviewed and electronically signed by: ? JOAQUIN Garcia(ASCP) ? Report Date: ??08/03/2004 13:25 End of Report [facility] 07/28/2004 07/30/2004 us Peter Hernández MD PATHOLOGY ORDERABLES Final Resu lt Performing Organization Address City/State/[facility] Co de Phone Number [facility] [address] [place] [address] documented in this encounter Visit Diagnoses Not on filedocumented in this encounter Care Teams Director Of Outpatient Services Relationship Specialty Start Date End Date Peter Hernández MD [address] [place] [address] PCP - General 07/16/09 documented as of this encounter
--- OUTSIDE RECORDS SUMMARY | 2024-05-02 15:24 | XMS_ITS | Encounter Summary ---
Author Organization [facility] Address [address] [place] [address] Care Team Providers Care Telemetry Rn Name Role Phone Peter Hernández MD Primary Care Provider [phone] Encounter Details Date Type Department Care Team (Late st Contact Info) Description 03/22/2005 Results Only [facility] conversion [address] [place] [address] Peter Hernández MD [address] [place], [place] [address] Social History Tobacco Use Types Packs/Day Years [...] Priority Date/Time Associated Diagnosis Comments CYTOPATHOLOGY Routine 03/22/2005 0:00 EDT documented in this encounter Results * CYTOPATHOLOGY (03/22/2005 0:00 EDT) Pathology Report: CYTOPATHOLOGY REPORT Reports generated via electronic interface contain original data; however they are lacking the format of the original report. Caution should be taken when reading/interpreti ng unformatted reports. Name: ? CAROLYN PARNELL ? Accession #: ? [id number] : ? 1980 (Age: 24) ??F ?Collect Date: ? 03/22/2005 Location: ? [facility] ? Receive Date: ? 03/24/2005 Provider: ?PETER HERNÁNDEZ MD Copy to: ? Specimen/Source: ?ThinPrep Pap Test, Cervix, processed on [employer] ThinPrep Imaging System, with manual evaluation Last Menstrual Period: ? Menstrual/Pregnanc y Status: ? Post ? SPECIMEN ADEQUACY ? Satisfactory for Evaluation - transformation zone component present GENERAL CATEGORIZATION ? Negative for Intraepithelial Lesion or Malignancy ? Document reviewed and electronically signed by: ? Carolyn Lance, SCT(ASCP) ? Report Date: ??03/31/2005 10:10 End of Report [facility] 03/22/2005 03/24/2005 us Peter Hernández MD PATHOLOGY ORDERABLES Final Resu lt [facility] [address] [place] [address] documented in this encounter Visit Diagnoses Not on filedocumented in this encounter Care Teams Telemetry Rn Relationship Specialty Start Date End Date Peter Hernández MD [address] [place] [address] PCP - General 07/16/09 documented as of this encounter
--- OUTSIDE RECORDS SUMMARY | 2024-05-02 15:24 | XMS_ITS | Encounter Summary ---
Author Organization [facility] Address [address] [place] [address] Care Team Providers Care Supply Coordinator Name Role Phone Huseyin Zazueta MD Primary Care Provider [phone] Encounter Details Date Type Department Care Team (Late st Contact Info) Description 03/31/2007 Results Only [facility] conversion [address] [place] [address] Julian Murry MD Social History Tobacco Use Types Packs/Day Years [...] Priority Date/Time Associated Diagnosis Comments CYTOPATHOLOGY Routine 03/31/2007 0:00 EDT documented in this encounter Results * CYTOPATHOLOGY (03/31/2007 0:00 EDT) Pathology Report: CYTOPATHOLOGY REPORT Reports generated via electronic interface contain original data; however they are lacking the format of the original report. Caution should be taken when reading/interpreti ng unformatted reports. Name: ? CAROLYN PARNELL ? Accession #: ? [id number] : ? 1980 (Age: 26) ??F ?Collect Date: ? 03/31/2007 Location: ? [facility] ? Receive Date: ? 04/04/2007 Provider: ?JULIAN LEWIS Copy to: ? Specimen/Source: ?ThinPrep Pap Test, Cervix, processed on [employer] ThinPrep Imaging System, with manual evaluation Last Menstrual Period: ? Hormonal/Contracep tive Status: ? Intrauterine device: MIrena Other: ? HPVA - HPV testing requested if ASC-US on the current ThinPrep Pap test. ? SPECIMEN ADEQUACY ? Satisfactory for Evaluation - transformation zone component present GENERAL CATEGORIZATION ? Negative for Intraepithelial Lesion or Malignancy ? Document reviewed and electronically signed by: ? JOAQUIN Veronica(ASCP) ? Report Date: ??04/07/2007 16:32 End of Report [facility] 03/31/2007 04/04/2007 us Julian Murry MD PATHOLOGY ORDERABLES Final Resul t [facility] [address] [place] [address] documented in this encounter Visit Diagnoses Not on filedocumented in this encounter Care Teams Supply Coordinator Relationship Specialty Start Date End Date Huseyin Zazueta MD [address] [place] [address] PCP - General 07/16/09 documented as of this encounter
--- OUTSIDE RECORDS SUMMARY | 2024-05-02 15:25 | XMS_ITS | Encounter Summary ---
Author Organization [facility] [place] [address] Care Team Providers Care Head Of Business Development Name Role Phone Huseyin Zazueta MD Primary Care Provider Encounter Details Date Type Department Care Team (Late st Contact Info) Description 02/08/2011 Orders [place] [address] Andrew Alvarez MD [facility] [place] [address] Diabetes (Primary Dx) Social History Tobacco Use Types Packs/Day Years Used Date Smoking Tobacco: Every Day Cigarettes Sex and Gender Information Value Date Recorded Sex Assigned at Not on file Gender Identity Not on file Sexual Orientation Not on file documented as of this encounter Plan of Treatment Not on file documented as of this encounter Visit Diagnoses Diagnosis Diabetes- Primary Type II or unspecified type diabetes mellitus without mention of complication, not stated as uncontrolled documented in this encounter Care Teams Head Of Business Development Relationship Specialty Start Date End Date Huseyin Zazueta MD [address] [place] [address] PCP - General 12/30/10 documented as of this encounter
--- OUTSIDE RECORDS SUMMARY | 2024-05-02 15:25 | XMS_ITS | Encounter Summary ---
Author Organization [facility] [place] [address] Care Team Providers Care Associate Civil Engineer Name Role Phone Huseyin Zazueta MD Primary Care Provider Reason for Visit * Reason Comments Diabetes Encounter Details Date Type Department Care Team (Late st Contact Info) Description 01/28/2011 3:00 PM EDT Office [place] [id number] Andrew Alvarez MD [facility] [place] [address] Diabetes (Primary Dx) Discharge Disposition: Home Social History Tobacco Use Types Packs/Day Years Used Date Smoking Tobacco: Every Day Cigarettes Sex and Gender Information Value Date Recorded Sex Assigned at Not on file Gender Identity Not on file Sexual Orientation Not on file documented as of this encounter Last Filed Vital Signs Vital Sign Reading Time Taken Comments Blood Pressure 104/64 01/28/2011 3:11 PM EDT Pulse 67 01/28/2011 3:11 PM EDT Temperature - - Respiratory Rate - - Oxygen Saturation - - Inhaled Oxygen Concentration - - Weight 54.5 kg (120 lb 3.2 oz) 01/28/2011 3:11 P M EDT Height 154.9 cm (5' 1) 01/28/2011 3:11 PM EDT Body Mass Index 22.71 01/28/2011 3:11 PM EDT documented in this encounter Progress Notes * Andrew Alvarez MD - 01/28/2011 4:40 PM EDT Subjective: Patient ID: Carolyn Portillo is a 30 y.o. female who comes in to discuss getting better control of her type 1 diabetes since she has had for about a year and a half. Carolyn said that she was being evaluated for what was thought was urinary tract infection about a year and a half ago, and was diagnosed with type 1 diabetes. She has been told that her half sister (she has never met) also has type 1 diabetes. She was initially thought to be a type 2, and was on oral medication, but in 07/2009 got her first insulin dose, and has been treated with Lantus insulin and NovoLog insulin ever since. She had been seeing Dr. Daigle, in [place], but is here for a second opinion. She actually said that she had some disputes with Dr. Jeb Daigle, [facility], and did not like him and did not want to see him. She comes in now saying that she is very frustrated by the fact that despite putting a lot of work into her diabetes, she is not under good control and has very erratic fingersticks. She is currently on 18 units of Lantus in the morning and 12 units of Lantus at night. She said that when she had tried to take Lantus once a day, she had inconsistent results, and could wake up either high or low. It sounds like she may be doing a little bit better on the b.i.d. Lantus. She is also on NovoLog and uses a 1 unit per 7 of carbs, and also has a correction factor adding either 1, 2, or 3 units for each 50 mg percent increment above 150. She said she has good days where she averages between 150 and 200, but bad days when she is much higher than that. She is doing three to ten fingersticks a day. She showed me her fingersticks, and they can vary anywhere from 100s to over 300, and there did not seem to be any specific pattern. She does get some low sugar reactions. She said when she was diagnosed her weight was down to 80 pounds. She has since gained some weight, but does have some intestinal complaints with some cramping. Her family history, she said her father suicided when she was young. Her mother is alive and well, as mentioned her half sister has type 1 diabetes. She said there is also elevated cholesterol in the family, and maternal grandfather had early coronary artery disease. 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 She has three children by a former significant other (ages 11, 8, and 6) currently comes down with daughter of her significant other. Her significant other also has three children, they are not currently living together, but she thinks they are heading in that direction. HABITS: Has cut down, but smokes half a pack a day of cigarettes, drinks alcohol socially. No other alcohol, and has plus/minus wearing seatbelts. Her review of systems is negative for any heart disease, lung disease, kidney problem, seizures, convulsions, or any other significant medical issues. Says she has not had any significant depression. Her eating habits, she said she eats usually at least two meals a day, usually does not eat much breakfast. She thought about going on a pump, but has not got around to it. She said her hemoglobin A1cs in the past have run anywhere from 10.9% to 11.2%. On physical exam, she is thin, but otherwise healthy looking. Thyroid is palpable, symmetrical. . HPI Review of Systems Objective: Physical Exam Constitutional: She is oriented to person, place, and time. Thin but healthy looking Neck: No thyromegaly present. Thyroid symmetric, ~10-15 gms, feels normal Cardiovascular: Normal rate and regular rhythm. Pulmonary/Chest: Effort normal and breath sounds normal. No respiratory distress. Abdominal: Soft. No tenderness. Neurological: She is alert and oriented to person, place, and time. Psychiatric: She has a normal mood and affect. Her behavior is normal. Thought content normal. Assessment and Plan: Carolyn comes into discuss control of her type 1 diabetes. She is obviously very frustrated and got angry at times, talking about the fact that she works very hard to control the diabetes, but it still is not well controlled. She took out some of her anger on her former doctor, who she said would blame me for not being under good control and kept warning me that I was going to young from bad complications. She said that she is working very hard, doing fingersticks and trying to make adjustments, but just cannot seem to get good control. I spent most of today's visit trying to talk with her in a positive way to try to gain her confidence. It is difficult to know exactly what to suggest at this point, but I suggested that we start off by repeating her hemoglobin A1c. She brought down some extensive records. I told her I was going to review these records, and then get back and touch with her when I gets the result of the hemoglobin A1c to try to make some suggestions to help her get under better control. I brought up the possibility of pump that she said she has thought of in the past. I told her that I am not sure that a pump would necessarily help her get under tighter control, but it is something we should at least think about since it may provide a way for her to immediately adjust her insulin. I asked her if she had ever worn a continuous monitor, she said she tried it for two or three days, but apparently it did not produce results. I will make an appointment to see her in follow up after I get a chance to review her records. I probably will also make some suggestions over the phone as to what she should try to get under better control. I told her that this may take quite a while for us to make small strides to help her get better control, but that the ultimate goal would be to get her hemoglobin A1c under 8% and to avoid significant hypoglycemic reactions. Greater than 35 of the 40-minute appointment was spent discussing overall strategy to try to get her diabetes under better control. documented in this encounter Plan of Treatment Not on file documented as of this encounter Procedures Procedure Name Priority Date/Time Associated Diagnosis Comments TISSUE TRANSGLUTAMINASE, IGA Routine 01/28/2011 4:43 PM EDT Diabetes HEMOGLOBIN A1C Routine 01/28/2011 4:43 PM EDT Diabetes IGA Routine 01/28/2011 4:43 PM EDT Diabetes documented in this encounter Results * (ABNORMAL) Hemoglobin A1c (01/28/2011 4:43 PM EDT) [facility] Signature Hemoglobin A1c 9.2(H) 4.3 - 6.1 % [facility] Estimated Average Glucose 217 mg/dL [facility] Comment: eAG equivalents for HbA1c percentages: HbA1c(%) ?eAG(mg/dL) 6.0 ?126 6.5 ?140 7.0 ?154 7.5 ?169 8.0 ?183 8.5 ?197 9.0 ?212 9.5 ?226 10.0 ? 240 Limitations: The eAG calculation has not been validated on women, individuals below 18 years old and above 70 years old, and individuals with hemoglobinopathies. Additional resources are available on the ADA website: ??http://professional.diabetes.org/glucosecalculator.aspx Reference: Blake OAKES, Marcio J, Colin R, et al. ??Translating the A1C assay into estimated average glucose values. ??Diabetes Care 2008:31(8):6989-7470. Blood specimen (specimen) 01/28/2011 4:43 PM EDT 01/28/2011 4:53 PM EDT Andrew Alvarez MD CHEMISTRY ORDERABLES Performing Organization Address [facility] Co de Phone Number [facility] * IgA (01/28/2011 4:43 PM EDT) IgA 176 70 - 400 mg/dL [facility] Blood specimen (specimen) 01/28/2011 4:43 PM EDT 01/28/2011 4:52 PM EDT Andrew Alvarez MD CHEMISTRY ORDERABLES Performing Organization Address [facility]/ZIP Co de Phone Number [facility] * Tissue transglutaminase, IgA (01/28/2011 4:43 PM EDT) TTG IgA Ab <4.0 <=3.9 u/ml [facility] Comment: Result Interpretation: Negative: ?<4 U/mL Weak Positive: ??4-10 U/mL Positive: ?>10 U/mL Blood specimen (specimen) 01/28/2011 4:43 PM EDT 01/29/2011 7:54 AM EDT Andrew Alvarez MD IMMUNOLOGY ORDERABLE S [facility] documented in this encounter Visit Diagnoses Diagnosis Diabetes- Primary Type II or unspecified type diabetes mellitus without mention of complication, not stated as uncontrolled documented in this encounter Care Teams Associate Civil Engineer Relationship Specialty Start Date End Date Huseyin Zazueta MD [address] [place] [address] PCP - General 12/30/10 documented as of this encounter
--- OUTSIDE RECORDS SUMMARY | 2024-05-02 15:25 | XMS_ITS | Clinical Summary ---
Author Organization [facility] Address [address] [facility] [place] [address] Care Team Providers Care Nurse Administrator Name Role Phone Huseyin Zazueta MD Primary Care Provider [phone] Allergies Active Allergy Reactions Criticality Noted Date Comments Insulin Detemir 01/28/2011 Medications Medication Sig Dispensed Refills Start Date End Date Status insulin aspart (NOVOLOG) 100 unit/mL pen injection Inject subcutaneously 3 times daily (with meals). 1:7 ratio Active Insulin Glargine (LANTUS SOLOSTAR) 100 unit/mL (3 mL) InPn Inject subcutaneously. 18 units in the morning 12 units at night Active simvastatin (ZOCOR) 40 mg tablet Take 40 mg by mouth nightly. Active Active Problems Problem Noted Date Diagnosed Date Diabetes mellitus 01/29/2011 Overview (03/13/2011): Dx replacement utility run on deactivated IMO Dx [id number] Social History Tobacco Use Types Packs/Day Years [...] Mass Index 22.71 01/28/2011 3:11 PM EDT Plan of Treatment Health Maintenance Due Date Last Done Comments Pneumococcal Vaccine: At-Risk 5-64yrs (1 of 2 - PCV) 0 1986 DM Creatinine yearly 1990 DM Opthalmology Exam 1990 DM Urine Microalbumin yearly 1990 HIV screen 1998 Hepatitis C Screening 1998 Hepatitis B vaccine (0-59 yrs) (1) 11/30/1999 Tetanus/Diphtheria/Pertussis Vaccines (1 - Tdap) 11/29 HPV test 2010 PAP Smear 2010 DM Hemoglobin A1c 04/30/2011 01/28/2011 Breast Cancer Share Decision Needed 2020 Breast Cancer screening 2020 Covid-19 Vaccine ( - season) 2024 Influenza (Flu) vaccine (1 o f 1 - Influenza standard series) 02/05/2024 Procedures Procedure Name Priority Date/Time Associated Diagnosis Comments HEMOGLOBIN A1C Routine 01/28/2011 4:43 PM EDT Diabetes from Last 3 Months or Most Recently Relevant to Health Maintenance Results * (ABNORMAL) Hemoglobin A1c (01/28/2011 4:43 PM EDT) Hemoglobin A1c 9.2(H) 4.3 - 6.1 % [facility] Estimated Average Glucose 217 mg/dL [facility] Comment: eAG equivalents for HbA1c percentages: HbA1c(%) [...] into estimated average glucose values. ??Diabetes Care 2008:31(8):4473-9240. Blood specimen (specimen) 01/28/2011 4:43 PM EDT 01/28/2011 4:53 PM EDT Andrew Alvarez MD CHEMISTRY ORDERABLES [facility] from Last 3 Months or Most Recently Relevant to Health Maintenance Care Teams Nurse Administrator Relationship Specialty Start Date End Date Huseyin Zazueta MD [address] [place] [address] PCP - General 12/30/10
--- OUTSIDE RECORDS SUMMARY | 2024-05-02 15:25 | XMS_ITS | Encounter Summary ---
Author Organization [facility] [place] [address] Care Team Providers Care Investment Analyst Name Role Phone Huseyin Zazueta MD Primary Care Provider [phone] Encounter Details Date Type Department Care Team (Late st Contact Info) Description 06/27/2023 10:35 AM EST - 06/27/2023 11:59 PM EST Hospital Encounter [facility] [address] [place] [address] Giovanny Hair MD [address] [place] [address] Discharge Disposition: Home Social History Tobacco Use Types Packs/Day Years Used Date Smoking Tobacco: Every Day Cigarettes Sex and Gender Information Value Date Recorded Sex Assigned at Not on file Gender Identity Not on file Sexual Orientation Not on file documented as of this encounter Medications at Time of Discharge Medication Sig Dispensed Refills Start Date End Date insulin aspart (NOVOLOG) 100 unit/mL pen injection Inject subcutaneously 3 times daily (with meals). 1:7 ratio Insulin Glargine (LANTUS SOLOSTAR) 100 unit/mL (3 mL) InPn Inject subcutaneously. 18 units in the morning 12 units at night simvastatin (ZOCOR) 40 mg tablet Take 40 mg by mouth nightly. documented as of this encounter Plan of Treatment Not on file documented as of this encounter Procedures Procedure Name Priority Date/Time Associated Diagnosis Comments FOLLICLE STIMULATING HORMONE Routine 06/27/2023 10:00 AM EST documented in this encounter Results * Follicle Stimulating Hormone (06/27/2023 10:00 AM EST) Follicle Stimulating Hormone 9.8 mlU/ML [facility] Comment: Reference Ranges Male: ? 1.5-12.4 mIU/mL Female ?? Follicular: ?3.5-12.5 mIU/mL ?? Ovulation: ? 4.7-21.5 mIU/mL ?? Luteal: ?1.7-7.7 mIU/mL ?? Postmenopausal: ?25.8-134.8 mIU/mL Blood 06/27/2023 10:0 0 AM EST 06/27/2023 5:47 PM EST Narrative Resulting Agency Comment Spec In Lab Giovanny Hair MD CHEMISTRY ORDERABLES Performing Organization Address City/State/[facility] Co de Phone Number [facility] [place] [address] documented in this encounter Visit Diagnoses Not on filedocumented in this encounter Care Teams Investment Analyst Relationship Specialty Start Date End Date Huseyin Zazueta MD [address] [place] [address] PCP - General 12/30/10 documented as of this encounter
[2024-05-02 15:30] LABS: Hemoglobin A1C 8.1 % (<5.7)
== END 2024-05-02 15:11 | disposition home or self-care (01) ==
LOC: LBO 15:15
PROVIDERS: PCP Nurse Practitioner Family; Visit Provider Internal Medicine Endocrinology, Diabetes & Metabolism
DX: E10.65 Type 1 diabetes mellitus with hyperglycemia (principal)
CPT/HCPCS: 36415; 83036

== ENCOUNTER 2024-08-10 00:31 | Outpatient (CLI) | payer OTHER, SELFPAY ==
--- NOTE | 2024-08-10 13:22 | DI.RAD_ITS ---
Exam(s) XR LUMBAR SPINE COMPLETE XR SACRUM EXAM: XR LUMBAR SPINE COMPLETE CLINICAL HISTORY: fall,low back pain,m54.50. TECHNIQUE: 2D digital imaging was performed. Five views of the lumbar spine. Two views of the sacr um COMPARISON: CR XR SACRUM from 08/10/2024 FINDINGS: BONES: No fracture or destructive lesion. Vertebral body heights are maintained. Minimal endplate osteophytes. Partial sacralization of the bilateral L5 transverse processes. No facet hypertrophy i dentified . Mild degenerative changes of the SI joints. The hip joints are unremarkable. DISKS: Intervertebral disc spaces are maintained. ALIGNMENT: Lumbar spinal alignment is within normal limits. SOFT TISSUE: Normal. IMPRESSION: No acute abnormality. DATA REPOSITORY: RADIATION DOSE DELIVERED:
== END 2024-08-10 00:51 ==
LOC: DI 00:31
PROVIDERS: PCP Nurse Practitioner Family; Visit Provider Nurse Practitioner Family
DX: M54.50 Low back pain, unspecified (principal)
CPT/HCPCS: 72110; 72220

== ENCOUNTER 2024-08-31 01:00 | Outpatient (CLI) | payer OTHER, SELFPAY ==
[2024-08-31 15:41] LABS: Hemoglobin A1C 7.7 % (<5.7)
== END 2024-08-31 01:01 | disposition home or self-care (01) ==
LOC: LBO 01:00
PROVIDERS: PCP Nurse Practitioner Family; Visit Provider Internal Medicine Endocrinology, Diabetes & Metabolism
DX: E10.65 Type 1 diabetes mellitus with hyperglycemia (principal)
CPT/HCPCS: 36415; 83036

== ENCOUNTER 2024-10-17 02:03 | Outpatient (CLI) | payer OTHER, SELFPAY ==
--- NOTE | 2024-10-17 07:30 | DI.MAMMO_ITS ---
Exam(s) MAMMO SCREENING EXAM: MAMMO SCREENING CLINICAL HISTORY: screening,z12.39 TECHNIQUE: Bilateral full field digital CC and MLO mammographic images were obtained with 3D tomosyn thesis and utilizing computer aided detection (CAD). COMPARISON: Available for comparison. FINDINGS: Masses/Architectural Distortion: No suspicious masses or areas of architectural distortion are presen t. Microcalcifications: No suspicious pleomorphic-type are seen. Skin Thickening/Nipple Retraction: None. IMPRESSION: 1. No significant interval change with no specific features of malignancy noted. 2. Unless there is more urgent need, screening mammography is recommended, as per [employer] guidelines. BI-RADS Category 1 - Negative Breast Density - Category C - The breast are heterogeneously dense, which may obscure small masses. Breast density Category C or D implies that the patient has dense breast tissue. Dense breast tissue can make it harder to find cancer on a mammogram. Dense breast tissue is also associated with an incr eased risk of breast cancer. This information about the result of the mammogram report was provided to the patient to raise their awareness. Use this report when you speak with the patient about their risks for breast cancer, which includes their family history. At that time, you may recommend additional screening tests (Ultrasoun d or MRI) as these tests may add significant information. A negative radiographic report should not delay biopsy if a dominant or clinically suspicious mass is present. Up to ten percent of cancers are not identified on mammography. A negative report may reinforce clinical impression. Adenosis and dense breasts may obscure an underlying neoplasm. False positive reports average 6 to 10%. Patient will receive a letter notifying them of these results.
== END 2024-10-17 02:23 ==
LOC: DI 02:03
PROVIDERS: PCP Nurse Practitioner Family; Visit Provider Nurse Practitioner Family
DX: Z12.31 Encounter for screening mammogram for malignant neoplasm of breast (principal); R92.323 Mammographic fibroglandular density, bilateral breasts
CPT/HCPCS: 77063; 77067

== ENCOUNTER 2024-10-19 17:15 | Emergency (ER) | payer OTHER, SELFPAY ==
[2024-10-19] VITALS (38 sets, daily range): BP systolic 100–141; BP diastolic 71–97; PULSE 75–220; RESP 12–35; TEMP 36.5; O2SAT 95–99
--- NOTE | 2024-10-19 17:15 | RT.EKG_ITS ---
APPROVED REPORT Exam: Resting ECG Reason for Exam: Near syncopal Patient Location: E HR:216 bpm ECG Measurements Heart Rate 216 AXIS MS 48 P 0 QRSd 83 QRS 77 QT 231 T -86 QTc 440 Conclusion Supraventricular tachycardia...V-rate>(220-age), QRSd<120 Repolarization abnormality, prob rate related...ST dep, T neg, tachycardia
--- NOTE | 2024-10-19 17:45 | RT.EKG_ITS ---
APPROVED REPORT Exam: Resting ECG Reason for Exam: s/p PSVT conversion Patient Location: E HR:90 bpm ECG Measurements Heart Rate 90 AXIS AR 134 P 76 QRSd 81 QRS 58 QT 371 T -51 QTc 454 Conclusion Sinus rhythm...normal P axis, V-rate 60- 99 Nonspecific T abnormalities, inferior leads...T <-0.10mV, II III aVF
[2024-10-19 17:52] LABS: Abs Immature Grans 0.03 10^3/uL (0.0-0.06); Absolute Basophil Count 0.04 10^3/uL (0.0-0.2); Absolute Eosinophil Count 0.08 10^3/uL (0.0-0.7); Absolute Lymphocyte Count 3.11 10^3/uL (1.2-3.4); Absolute Monocyte Count 0.75 10^3/uL (0.1-0.8); Absolute Neutrophil Count 5.09 10^3/uL (1.2-6.7); Basophils % 0.4 %; Eosinophils % 0.9 %; HCT 40.8 % (36.0-46.0); Immature Grans % 0.3 %; Lymphocytes % 34.2 %; MCHC 34.3 % (32.0-36.0); MCV 93 fL (80-95); MPV 9.9 fL (8.0-11.0); Monocytes % 8.2 %; Platelet Count 311 10^3/uL (130-400); RBC 4.37 10^6/uL (3.93-5.22); RDW 13.7 % (11.7-14.6); RDW-SD 46.8 fL
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
[2024-10-19 18:17] LABS: ALT 28 U/L (14-59); AST 25 U/L (15-37); Albumin 4.2 g/dL (3.4-5.0); Alkaline Phosphatase 97 U/L (46-116); Anion Gap 10.2 mmol/L (3-11); BUN 7 mg/dL (7-18); Bilirubin, Total 0.7 mg/dL (0.2-1.0); CO2 25.8 mmol/L (21.0-32.0); CREATININE 0.9 mg/dL (0.55-1.02); Calcium 9.3 mg/dL (8.5-10.1); Chloride 100 mmol/L (98-107); Estimated GFR 81.35 (mL/min/1.73m2); Glucose 276 mg/dL (74-106); Magnesium 1.8 mg/dL (1.8-2.4); Potassium 3.6 mmol/L (3.5-5.1); Sodium 136 mmol/L (136-145); TSH (W/Ref FT4) 2.58 uIU/mL (0.36-3.74); Total Protein 7.4 g/dL (6.4-8.2)
[2024-10-19 18:22] LABS: Troponin I < 4 ng/L (<or=51)
== END 2024-10-19 20:55 | disposition home or self-care (01) ==
PROVIDERS: Emergency Provider Student in an Organized Health Care Education/Training Program; PCP Nurse Practitioner Family
DX: I47.10 Supraventricular tachycardia, unspecified (principal); E10.65 Type 1 diabetes mellitus with hyperglycemia; F17.290 Nicotine dependence, other tobacco product, uncomplicated; F17.210 Nicotine dependence, cigarettes, uncomplicated; Z79.4 Long term (current) use of insulin
CPT/HCPCS: 36415; 80053; 93005; 99284; 83735; 84443; 84484; 85025; 93010

== ENCOUNTER 2024-10-25 12:56 | Outpatient (RCR) | payer OTHER, SELFPAY ==
--- NOTE | 2024-11-01 11:57 | W.HOLTRPT ---
Date of service: 11/01/24 Time of Service: 11:58 Holter Monitor Report Referring Provider:: Fadi Cortez Indications:: SVT Holter Monitor Note: This is a 48-hour Holter monitor. Rhythm throughout was sinus with an average heart rate of 85. Minimum was 54, maximum 127 A total of 8 premature ventricular contractions were recorded There were 16 premature atrial contractions There was no SVT, no atrial fibrillation, no high-grade AV block, no pauses greater than 3 seconds Symptoms correlated to sinus rhythm at 84 bpm
== END 2024-11-03 23:59 | disposition home or self-care (01) ==
LOC: CARDOPNVT 12:56
PROVIDERS: PCP Nurse Practitioner Family; Visit Provider Internal Medicine Cardiovascular Disease
DX: I47.10 Supraventricular tachycardia, unspecified (principal); I49.1 Atrial premature depolarization; I49.3 Ventricular premature depolarization
CPT/HCPCS: 93225; 93226

== ENCOUNTER 2024-11-07 15:48 | Outpatient (REF) | payer OTHER, SELFPAY ==
--- NOTE | 2024-11-07 13:45 | PAPFT_PTH ---
PATIENT: Carolyn Portillo LOC: [facility] U#:[id number] AGE/SX: 43/F ROOM: RE11/07/[address]: Tori Monte MD : 1980 BED: DIS: 11/07/2024 SPEC #: [id number] RECD: 11/07/24 17:13 STATUS: GEOFFREY REFelton #: [id number] PATRICIA: 11/07/24 13:[address]: Tori Monte DEPT: [facility] Cytology RECD BY: Sonali Santiago ENTERED: 11/07/24 17:14 SP TYPE: PAPFT OTHR DR: Fadi Cobos DNP Tissues: 1 - CX/ENDOCX FOR PAP SMEARS Procedures: PAP THIN PREP/UVM Screening HPV DNA PROBE Comments: [id number] (HPV 16 & 18/45)
== END 2024-11-07 15:49 | disposition home or self-care (01) ==
LOC: LBN 15:48
PROVIDERS: PCP Nurse Practitioner Family; Visit Provider Obstetrics & Gynecology
DX: Z12.4 Encounter for screening for malignant neoplasm of cervix (principal)
CPT/HCPCS: 88142; 87624

== ENCOUNTER 2024-12-20 01:26 | Outpatient (CLI) | payer OTHER, SELFPAY ==
[2024-12-20 11:01] LABS: Hemoglobin A1C 8.5 % (<5.7)
[2024-12-20 11:07] LABS: COMMENT (LAB VIEW ONLY) 71.60 mg/dL; Microalb ug/mg Crea 4.3 ug/mg Cr
[2024-12-20 11:15] LABS: ALT 22 U/L (14-59); AST 15 U/L (15-37); Albumin 3.8 g/dL (3.4-5.0); Alkaline Phosphatase 80 U/L (46-116); Anion Gap 8.3 mmol/L (3-11); BUN 4 mg/dL (7-18); Bilirubin, Total 0.7 mg/dL (0.2-1.0); CO2 26.7 mmol/L (21.0-32.0); Calcium 8.8 mg/dL (8.5-10.1); Calculated LDL 73 mg/dL (<100); Chloride 99 mmol/L (98-107); Cholesterol 172 mg/dL (<200); Estimated GFR 113.44 (mL/min/1.73m2); Glucose 271 mg/dL (74-106); HDL Cholesterol 89 mg/dL (>or=50); Potassium 3.8 mmol/L (3.5-5.1); Sodium 134 mmol/L (136-145); Total Protein 6.9 g/dL (6.4-8.2); Triglyceride 51 mg/dL (<150)
== END 2024-12-20 01:27 | disposition home or self-care (01) ==
LOC: LBO 01:26
PROVIDERS: PCP Nurse Practitioner Family; Visit Provider Internal Medicine Endocrinology, Diabetes & Metabolism
DX: E10.65 Type 1 diabetes mellitus with hyperglycemia (principal); E10.649 Type 1 diabetes mellitus with hypoglycemia without coma; F17.200 Nicotine dependence, unspecified, uncomplicated
CPT/HCPCS: 36415; 80053; 80061; 82043; 82570; 83036

== ENCOUNTER 2025-05-28 08:05 | Outpatient (CLI) | payer OTHER, SELFPAY ==
[2025-05-28 08:28] LABS: Hemoglobin A1C 7.8 % (<5.7)
== END 2025-05-28 08:06 | disposition home or self-care (01) ==
LOC: LBO 08:05
PROVIDERS: PCP Nurse Practitioner Family; Visit Provider Internal Medicine Endocrinology, Diabetes & Metabolism
DX: F17.200 Nicotine dependence, unspecified, uncomplicated (principal); E10.649 Type 1 diabetes mellitus with hypoglycemia without coma; E10.65 Type 1 diabetes mellitus with hyperglycemia
CPT/HCPCS: 36415; 83036